=== PATIENT | female | born 1935 | race Caucasian/White ===

== ENCOUNTER → 2016-10-21 | Outpatient (REF) | payer MEDICARE ==
[~2016-10-21] MED LIST: /BRIN1OS OU; /NITR4TASL SL; ADV250INH INH; ALBU17IN INH; ALLO100T PO; ASPI325T5 PO; ASPI81TA21 PO; AZIT500T2 PO; AZOP0.2S OU; BACITAB3 PO; BIMA01SOL OU; BISO5TAB5 PO; BRIN1OPH OU; CEFD1CAP8 PO; CEFT500T PO; COLA100C PO; FOSA70TA PO; FURO40TA2 PO; INSULANT SC; KLOR10TA21 PO; KLOR1TAB77 PO; LASI20TA PO; LOSA50TA20 PO; LUMIGAN OU; MUCI600T34 PO; NITR4TASL SL; OMEG100011 PO; OMEGA PO; OMEGCAP8 PO; OS-CTAB6 PO; OSTEO BIFLEX PO; POTA10CA PO; PRED10PA PO; PRED10TA PO; PRED20TA PO; PRESCAP4 PO; PRESER VISION PO; PRIL20CA PO; PRIL20CA9 PO; PROA1AER INH; ROCA0.25 PO; TYLE325T5 PO; VITA100041 PO; VITA100066 PO; VITA200016 PO; ZITH500T PO; [UNRECOGNIZED DRUG - OTHER] PO
[2016-10-21 15:35] LABS: PERCENT SATURATION 10.8 % (13.2-37.4)
== END ==
LOC: M LAB REF 14:54
PROVIDERS: ATTEND Internal Medicine
DX: R23.1 Pallor (principal); R53.1 Weakness

== ENCOUNTER 2016-12-24 02:16 | Inpatient (IN) | payer MEDICARE ==
[~2016-12-24] VITALS: Ht 167.6 cm; Wt 79.8 kg
[~2016-12-24 02:16] MED LIST changes: -COLA100C PO; +COLA100C3 PO
[2016-12-24] MEDS ORDERED: methylPREDNISolone INJ 125 MG/2 ML VIAL (J2930) IV ONE (02:45)
[2016-12-24 02:54] LABS: ABG HCO3 18.2 MEQ/L (22.0-26.0); ABG PARTIAL PRESSURE CO2 28.8 mmHg (35.0-45.0); ABG PARTIAL PRESSURE O2 69.5 mmHg (75.0-100.0); ABG STANDARD HCO3 20.3 MEQ/L (22.0-26.0); ABG TOTAL CO2 19.1 MEQ/L (23.0-31.0); ABG pH (ARTERIAL) 7.419 UNITS (7.350-7.450)
[2016-12-24 03:09] LABS: BASO % 0.3 % (0.0-1.0); EOS # 0.2 K/mm3 (0.0-0.50); EOS % 1.4 % (0.0-3.0); LARGE UNSTAINED CELL % 0.3 % (0.0-4.0); LYMPH # 1.2 K/mm3 (1.5-4.5); LYMPH % 10.7 % (24.0-44.0); MEAN CORPUSCULAR HEMOGLOBIN 31.3 pg (27.0-33.0); MEAN CORPUSCULAR HGB CONC 30.7 g/dl (32.0-36.5); MONO # 0.2 K/mm3 (0.0-0.8); MONO % 1.7 % (0.0-5.0); NEUTROPHILS # 9.3 K/mm3 (1.8-7.7); NEUTROPHILS % 85.5 % (36.0-66.0); PLATELET COUNT, AUTOMATED 288 k/mm3 (150-450); RED CELL DISTRIBUTION WIDTH 15.1 % (11.5-14.5); WHITE BLOOD COUNT 10.9 K/mm3 (4.0-10.0)
[2016-12-24] MEDS: IPRATROPIUM 0.5MG/ALBUTEROL 2.5MG INH SOL UD 3ML (DUONEB)(J7620) NEB SCH ×8 (03:12→23:25)
[2016-12-24] MEDS ORDERED: ONDANSETRON 4MG/2ML VIAL (J2405) IV ONE (03:15)
[2016-12-24] MEDS ORDERED: CEFEPIME HCL 2 GM in D5W MINI-BAG PLUS 50 ML IV ONE (03:15)
[2016-12-24 03:31] LABS: CALCIUM LEVEL 8.7 MG/DL (8.8-10.2); CREATININE FOR GFR 1.5 MG/DL (0.55-1.02); GLOMERULAR FILTRATION RATE 35.7 (>39); POTASSIUM SERUM 4.2 MEQ/L (3.5-5.1)
[2016-12-24] MEDS ORDERED: ISOVUE-370 76% 100ML VIAL (Q9967) As Ordered ONE (04:09)
--- NOTE | 2016-12-24 05:10 | REPUSA ---
CLINICAL HISTORY: Dyspnea, exclude PE. TECHNIQUE: Multiple incremental axial, coronal and oblique images are obtained from the thoracic inle t to the upper abdomen. Intravenous contrast material was administered as per pulmonary embolism prot ocol. COMMENTS: Minimal right pleural effusion. Passive atelectatic airspace disease in the right lower lobe. Aberrant right subclavian artery. Fluid-filled mildly dilated esophagus. Multifocal ground glass densities in the right upper lobe, right middle lobe and right lower lobe. Prior cholecystectomy. There is excellent opacification of pulmonary arterial system without evidence for pulmonary embolism . Aorta is of normal caliber without evidence for dissection or aneurysm. There is no evidence of pleural or parenchymal mass. There are no pleural effusions. There is no evid ence of hilar or mediastinal lymphadenopathy. The heart and great vessels are within normal limits. Images of the upper abdomen demonstrate no evidence of adrenal mass. The bony structures are free of lytic or blastic lesions. Multilevel degenerative changes are seen in volving the visualized thoracolumbar spine. Scattered calcifications are seen involving the aorta and major branches compatible with atherosclero sis. Moderate sliding hiatal hernia. IMPRESSION: No evidence for pulmonary embolism. Interval appearance of a minimal right pleural effusion. Passive atelectatic airspace disease in the right lower lobe. Fluid-filled mildly dilated esophagus. Ground glass densities in the right upper lobe, right middle lobe and right lower lobe. Findings are suggestive of multifocal pneumonia. Findings were not present on prior exam on 11/24/2007. Thank you for your kind referral of this patient.
[2016-12-24] MEDS ORDERED: ACETAMINOPHEN TAB 650MG DOSE (2X325MG) PO PRN (05:30)
[2016-12-24] MEDS ORDERED: DEXTROSE 50% 50 ML SYRINGE IV PRN (05:30)
[2016-12-24] MEDS ORDERED: GLUCAGON FOR INJ 1 MG VIAL (J1610) SC PRN (05:30)
[2016-12-24] MEDS ORDERED: GLUCOSE 4 GM CHEW TABLET PO PRN (05:30)
[2016-12-24] MEDS ORDERED: IPRATROPIUM 0.5MG/ALBUTEROL 2.5MG INH SOL UD 3ML (DUONEB)(J7620) NEB PRN (05:30)
--- NOTE | 2016-12-24 05:59 | HPEPDOC ---
General Date of Admission 12/24/16 Primary Care Physician: KATHIA WORLEY DO Attending Physician: KALI CONRAD MD Chief Complaint The patient is a 81-year-old female admitted with a reason for visit of sob. Source: Patient Exam Limitations: No limitations History of Present Illness 81-year-old female with past medical history of COPD not on any home oxygen, hypertension, CAD, CHF, diabetes mellitus, DVT of the left lower extremity diagnosed in September of 2016 on Xarelto, GERD, and gout presented to the ER with a chief complaint of progressive cough and shortness of breath. The patient states that her symptoms started 2 weeks ago with a chronic cough which progressed into a cough productive of yellowish sputum over the last 24 hours. The patient states that she was awoken in the middle of the night with worsening shortness or breath and a persistent cough. The patient denies any fevers, but does note subjective chills at home. The patient denies any complaints of chest pain, palpitations, abdominal pain, nausea/vomiting/diarrhea , sick contacts, or any recent travel. In the ER, a CTA of the chest revealed multifocal pneumonia. The patient will be admitted under the service of Dr. Conrad for further evaluation and management of the same. Home Medications Scheduled (Preservision/Lutein) 1 Cap Cap 1 CAP PO DAILY (Reported) (Os-Jamal Ultra 600 mg) 1 Tab Tab 1 TAB PO DAILY (Reported) Allopurinol (Allopurinol) 100 Mg Tab 100 MG PO DAILY (Reported) Aspirin (Aspir-Low) 81 Mg Tab 81 MG PO DAILY (Reported) Bimatoprost (Lumigan) 50 Drop/2.5 Ml Eleanor 1 DROP OU QHS (Reported) Bisoprolol Fumarate (Bisoprolol Fumarate) 5 Mg Tab 2.5 MG PO DAILY (Reported) Brinzolamide (Azopt) 1 % Taya 1 DROP OU BID (Reported) Calcitriol (Rocaltrol) 0.25 Mcg Cap 0.25 MCG PO DAILY (Reported) Cefdinir (Cefdinir) 300 Mg Cap 300 MG PO BID Cholecalciferol (Vitamin D) 1,000 Unit Tab 2,000 UNIT PO DAILY (Reported) Furosemide (Furosemide) 40 Mg Tab 40 MG PO DAILY (Reported) Guaifenesin (Mucinex) 600 Mg Tab 600 MG PO BID Insulin Glargine (Lantus) 1 Units/0.01 Ml Susp 12 UNITS SC QHS (Reported) Lima 3 Polyunsat Fatty Acids (Lima 3 1000 mg) 1 Cap Cap 3 CAP PO BID ( Reported) Omeprazole (Prilosec) 20 Mg Cap 20 MG PO DAILY (Reported) Potassium Chloride (Klor-Con M10) 10 Meq Tabcr 10 MEQ PO DAILY (Reported) Prednisone (Prednisone) 10 Mg Tab 10 MG PO ASDIRECTED Salmeterol/Fluticasone (Advair Diskus 250-50 Mcg/Dose) 14 Puff/Inhaler Aerp 2 PUFF INH BID (Reported) Scheduled PRN Albuterol Sulfate (Proair Hfa) 108 Mcg/Act Aer 2 PUFFS INH Q4H PRN PRN SHORTNESS OF BREATH (Reported) Nitroglycerin (Nitrostat) 0.4 Mg Subl 0.4 MG SL PRN PRN PRN CHEST PAIN (Reported ) Allergies Coded Allergies: Penicillins (Verified Allergy, Unknown, 12/07/12) Pitavastatin (Verified Allergy, Unknown, 05/29/14) Quinolones (Verified Allergy, Unknown, CIPRO AND AVELOX, 12/07/12) Statins (Verified Allergy, Unknown, 05/29/14) Timolol (Verified Allergy, Unknown, 12/07/12) Past Medical History Medical History As noted in HPI. Surgical History 1. Cardiac stent. 2. Subtotal colectomy. 3. Appendectomy. 4. Breast biopsy, right and left. 5. Cataract surgery, bilateral. 6. Cholecystectomy. 7. Hysterectomy. Family History Significant Family History: No pertinent family hx Social History * Smoker: other (smoked 1 pack per day for 50+ years, quit approximately 15 years ago.) Alcohol: occationally Drugs: denies Review of Symptoms Other systems 10 point review of systems negative unless otherwise specified in HPI. Physical Examination General Exam: Positive: Alert, Cooperative, No Acute Distress ENT Exam: Positive: Atraumatic Neck Exam: Negative: JVD Chest Exam: Positive: Diminished, Wheezing, Negative: Rales Heart Exam: Positive: Normal S1, Normal S2, Rate Normal Telemetry: Positive: Sinus Abdomen Exam: Positive: Soft, Negative: Tenderness Extremity Exam: Positive: Other (left lower extremity swelling greater then right lower extremity. This apparently has been the case since the patient was diagnosed with a left lower extremity DVT in September 2016 according to the patient.), Negative: Tenderness Psych Exam: Positive: Oriented x 3 Vital Signs Vital Signs Date Time Temp Pulse Resp B/P Pulse Ox O2 Delivery O2 Flow Rate FiO2 12/24/16 05:30 99.0 60 20 110/53 94 High Flow Mask 12/24/16 03:56 60 12/24/16 03:45 15 Laboratory Data Labs 24H Laboratory Tests 2 12/24/16 02:44: Arterial Blood pH 7.419, Arterial Blood Partial Pressure CO2 28.8L, Arterial Blood Partial Pressure O2 69.5L, Arterial Blood Total CO2 19.1L, Arterial Blood HCO3 18.2L, Arterial Blood Base Excess -5.0L, Arterial Blood Oxygen Saturation 92.9L, Blood Gas Bicarbonate Standard 20.3L 12/24/16 02:49: Anion Gap 9, White Blood Count 10.9H, Red Blood Count 3.85L, Hemoglobin 12.0, Hematocrit 39.2, Mean Corpuscular Volume 102.0H, Mean Corpuscular Hemoglobin 31.3, Mean Corpuscular Hemoglobin Concent 30.7L, Red Cell Distribution Width 15.1H, Platelet Count 288, Neutrophils (%) (Auto) 85.5H, Lymphocytes (%) (Auto) 10.7L, Monocytes (%) (Auto) 1.7, Eosinophils (%) (Auto) 1.4, Basophils (%) (Auto ) 0.3, Neutrophils # (Auto) 9.3H, Lymphocytes # (Auto) 1.2L, Monocytes # (Auto) 0.2, Eosinophils # (Auto) 0.2, Basophils # (Auto) 0.0, Blood Urea Nitrogen 20H, Creatinine 1.50H, Sodium Level 146H, Potassium Level 4.2, Chloride Level 112H, Carbon Dioxide Level 25, Calcium Level 8.7L, Total Creatine Kinase 20L, Creatine Kinase MB 1.0, Creatine Kinase MB Relative Index 5.00H, Glomerular Filtration Rate 35.7L, Large Unclassified Cells # 0.0, Large Unclassified Cells % 0.3, Troponin I 0.08 CBC/BMP Laboratory Tests 12/24/16 02:49 Calcium Level 8.7 L, Total Creatine Kinase 20 L, Red Blood Count 3.85 L, Mean Corpuscular Volume 102.0 H, Mean Corpuscular Hemoglobin 31.3, Mean Corpuscular Hemoglobin Concent 30.7 L, Red Cell Distribution Width 15.1 H, Neutrophils (%) ( Auto) 85.5 H, Lymphocytes (%) (Auto) 10.7 L, Monocytes (%) (Auto) 1.7, Eosinophils (%) (Auto) 1.4, Basophils (%) (Auto) 0.3, Neutrophils # (Auto) 9.3 H , Lymphocytes # (Auto) 1.2 L, Monocytes # (Auto) 0.2, Eosinophils # (Auto) 0.2, Basophils # (Auto) 0.0 Microbiology Microbiology 12/24/16 Blood Culture, Received Pending 12/24/16 Blood Culture, Received Pending 12/24/16 Influenza Virus Type A Antigen - Final, Complete 12/24/16 Influenza Virus Type B Antigen - Final, Complete Plan / VTE VTE Prophylaxis Ordered?: Yes (already on Xarelto) Plan Plan Multifocal pneumonia, in a patient with a history of COPD CTA of the chest noted Blood cultures, sputum culture, MRSA screen, respiratory panel ordered The patient does have a history of multiple drug allergies, however she has been able to tolerate doses of vancomycin and cefepime in the past, and we will continue the same at this time for empiric coverage Continue nebs, inhaler treatment as prescribed We will continue to monitor the patient's respiratory status Hypoxic respiratory failure secondary to above Patient was initially requiring 15 L of oxygen via nonrebreather, however she has been transitioned to high flow oxygen at this time ABG notable for metabolic acidosis with compensatory respiratory alkalosis Continue nebulizer treatment as noted above Status post Solu-Medrol in the ER We will continue to down titrate the patient's supplemental oxygen requirement as tolerated Chronic kidney disease Serum creatinine appears to be at baseline Diabetes mellitus Continue insulin regimen Hypertension, stable Continue current regimen History of left lower extremity DVT diagnosed in September 2016 On Xarelto History of CHF, CAD Appears euvolemic at this time, and is without any complaints of chest pain Continue Lasix, aspirin, and bisoprolol Not on a statin secondary to allergy GERD Continue PPI Gout Continue allopurinol DVT prophylaxis-already on Xarelto The patient will be admitted under the service of Dr. Conrad, who will begin to follow the patient on 12/24/16 at 7 AM. SAUMYA ABURTO MD Dec 24, 2016 05:58
[2016-12-24] MEDS ORDERED: XARE20TA PO (06:09)
[2016-12-24] MEDS ORDERED: FERR32TA PO (06:09)
[2016-12-24] MEDS ORDERED: POTA10CA PO (06:09)
[2016-12-24] MEDS ORDERED: FURO20TA2 PO (06:09)
[2016-12-24] MEDS ORDERED: ASPI81TA7 PO (06:09)
[2016-12-24] MEDS ORDERED: PRESCAP PO (06:09)
[2016-12-24] MEDS ORDERED: NITROGLYCERIN 0.4 MG SUBL TABLET SL PRN (06:15)
--- NOTE | 2016-12-24 06:23 | PHACANCOPD ---
PHARMACY VANCOMYCIN DOSING Pt Demographics Demographics Patient Age:81 , Weight: , Gender: female Adjusted Body Weight Date: 12/24/16, Adjusted Body Weight: [67.3] Kg Vancomycin Vancomycin indication: PNEUMONIA Vancomycin Target Ranges: 15-20 mcg/ml Vancomycin Load Y/N: No Load Dose Date Time Vancomycin Load Dose: Date: Time: Vancomycin Dose Date: 12/24/16. Current Vancomycin Dose: [750MG Q12X2,THEN 1 GM Q24] Intermittent Dosing?: No Labs Labs Laboratory Tests 12/24/16 02:49 Calcium Level 8.7 L, Total Creatine Kinase 20 L, Red Blood Count 3.85 L, Mean Corpuscular Volume 102.0 H, Mean Corpuscular Hemoglobin 31.3, Mean Corpuscular Hemoglobin Concent 30.7 L, Red Cell Distribution Width 15.1 H, Neutrophils (%) ( Auto) 85.5 H, Lymphocytes (%) (Auto) 10.7 L, Monocytes (%) (Auto) 1.7, Eosinophils (%) (Auto) 1.4, Basophils (%) (Auto) 0.3, Neutrophils # (Auto) 9.3 H , Lymphocytes # (Auto) 1.2 L, Monocytes # (Auto) 0.2, Eosinophils # (Auto) 0.2, Basophils # (Auto) 0.0 Micro Microbiology 12/24/16 Blood Culture, Received Pending 12/24/16 Blood Culture, Received Pending 12/24/16 Influenza Virus Type A Antigen - Final, Complete 12/24/16 Influenza Virus Type B Antigen - Final, Complete Creatinine Clearance Date:12/24/16. Creatinine Clearance: [32.3]CALCULATED. Pending Labs VANCO TROUGH DUE 12/26@1700 Assessment and Plan Maintaining Current Dose?: Yes Reason for dose change: No Dose Change Pharmacist Note Pharmacist Note Date: 12/24/16. Pharmacist note:[id number]: SCR=1.5,CRCL=32.3CALCULATED,TREATING PNEUMONIA W CEFEPIME 1 GM Q12H AND VANCOMYCIN PER PHARMACY CONSULT.wILL BEGIN WITH VANCOMYCIN 750MG IV q12H X 2 DOSES,THEN CHANGE TO 1 GRAM IV Q24H BEGINNING 12/25 WITH TROUGH ORDERED FOR 12/26@1700:WILL CONTINUE TO FOLLOW LEVELS AND LABS [facility] Dec 24, 2016 06:23
[2016-12-24] MEDS: HumaLOG INSULIN (NovoLOG) PER UNIT SC SCH ×4 (07:18→21:44)
[2016-12-24] MEDS: VANCOMYCIN HCL 750 MG, VIAL MATE ADAPTER 1 EACH in D5W 250 ML IV SCH ×2 (07:18→17:35)
--- NOTE | 2016-12-24 08:23 | REP ---
Portable chest, single AP view, the patient semi upright: Comparison is 04/08/2016. There is increased radiodensity in the right upper lobe and right lower lobe as an interval change, compatible with infiltrates. Left lung is clear except for minor zone of discoid atelectasis inferiorly. Cardiac size is normal. No pleural effusions. Impression: New right upper lobe and right lower lobe infiltrates. Minor discoid atelectasis on the left. Signed by Fady Larsen MD 12/24/2016 08:14 A
[2016-12-24] MEDS: FUROSEMIDE 20 MG TAB PO SCH (09:00)
[2016-12-24] MEDS: ASPIRIN 81 MG ENTERIC TAB PO SCH (09:00)
[2016-12-24] MEDS: RIVAROXABAN 20 MG TAB (XARELTO) PO SCH (09:01)
[2016-12-24] MEDS: POTASSIUM CHLORIDE 10 MEQ SR TABLET PO SCH ×2 (09:01→21:43)
[2016-12-24] MEDS: OMEPRAZOLE 20 MG CAP PO SCH (09:01)
[2016-12-24] MEDS: BISOPROLOL FUMARATE 5 MG TAB PO SCH (09:02)
[2016-12-24] MEDS: ADVAIR DISKUS 250/50 INH PWD INH SCH ×3 (09:26→23:26)
[2016-12-24] MEDS: CALCITRIOL 0.25 MCG CAP (S0169) PO SCH (09:31)
[2016-12-24] MEDS: FERROUS GLUCONATE 324 MG TAB PO SCH (09:31)
[2016-12-24] MEDS: ALLOPURINOL 100 MG TAB PO SCH (09:32)
[2016-12-24] MEDS: BRINZOLAMIDE 1 % OPHTH SUSP (AZOPT) 10ML OU SCH ×2 (09:32→22:52)
[2016-12-24] MEDS: VITAMIN D 1,000 INTERNATIONAL UNITS TABLET PO SCH (09:32)
[2016-12-24 10:30] VITALS: BP 115/55
[2016-12-24 14:00] VITALS: BP 121/62
[2016-12-24] MEDS: CEFEPIME HCL 1 GM in D5W MINI-BAG PLUS 50 ML IV SCH (15:49)
[2016-12-24] MEDS ORDERED: CEFEPIME HCL 1 GM in D5W MINI-BAG PLUS 50 ML IV SCH (16:00)
[2016-12-24] MEDS: LEVEMIR (INSULIN DETEMIR) 1 UNITS/0.01ML SC SCH (21:44)
[2016-12-24 22:00] VITALS: BP 107/56
[2016-12-25] MEDS: IPRATROPIUM 0.5MG/ALBUTEROL 2.5MG INH SOL UD 3ML (DUONEB)(J7620) NEB SCH ×6 (02:27→23:23)
[2016-12-25] MEDS: CEFEPIME HCL 1 GM in D5W MINI-BAG PLUS 50 ML IV SCH ×2 (04:29→16:52)
[2016-12-25 06:00] VITALS: BP 98/51
[2016-12-25 08:56] LABS: ALBUMIN 1.9 GM/DL (3.2-5.2); ALBUMIN/GLOBULIN RATIO 0.66 (1.00-1.93); BILIRUBIN,TOTAL 0.2 MG/DL (0.2-1.0); CALCIUM LEVEL 7.8 MG/DL (8.8-10.2); CREATININE FOR GFR 2.04 MG/DL (0.55-1.02); TOTAL PROTEIN 4.8 GM/DL (6.4-8.2)
[2016-12-25] MEDS: BISOPROLOL FUMARATE 5 MG TAB PO SCH (09:00)
[2016-12-25 09:01] LABS: MEAN CORPUSCULAR HEMOGLOBIN 32.1 pg (27.0-33.0); MEAN CORPUSCULAR HGB CONC 31.4 g/dl (32.0-36.5); MEAN CORPUSCULAR VOLUME 102.1 fl (80.0-96.0); RED CELL DISTRIBUTION WIDTH 14.9 % (11.5-14.5); WHITE BLOOD COUNT 18.7 K/mm3 (4.0-10.0)
[2016-12-25] MEDS: HumaLOG INSULIN (NovoLOG) PER UNIT SC SCH ×4 (09:01→21:00)
[2016-12-25] MEDS: VITAMIN D 1,000 INTERNATIONAL UNITS TABLET PO SCH (09:02)
[2016-12-25] MEDS: RIVAROXABAN 20 MG TAB (XARELTO) PO SCH (09:02)
[2016-12-25] MEDS: FUROSEMIDE 20 MG TAB PO SCH (09:02)
[2016-12-25] MEDS: OMEPRAZOLE 20 MG CAP PO SCH (09:02)
[2016-12-25] MEDS: POTASSIUM CHLORIDE 10 MEQ SR TABLET PO SCH (09:03)
[2016-12-25] MEDS: ASPIRIN 81 MG ENTERIC TAB PO SCH (09:03)
[2016-12-25] MEDS: CALCITRIOL 0.25 MCG CAP (S0169) PO SCH (09:03)
[2016-12-25] MEDS: ALLOPURINOL 100 MG TAB PO SCH (09:03)
[2016-12-25] MEDS: FERROUS GLUCONATE 324 MG TAB PO SCH (09:03)
[2016-12-25] MEDS: BRINZOLAMIDE 1 % OPHTH SUSP (AZOPT) 10ML OU SCH ×2 (09:04→21:16)
[2016-12-25 10:10] LABS: POTASSIUM SERUM 5.8 MEQ/L (3.5-5.1)
[2016-12-25] MEDS: ADVAIR DISKUS 250/50 INH PWD INH SCH ×2 (10:17→19:49)
[2016-12-25] MEDS ORDERED: NS 1,000 ML IV SCH (11:00)
[2016-12-25] MEDS ORDERED: SOD POLYSTYRENE SULFONATE SUSP 15 GM/60 ML UD PO ONE (11:00)
[2016-12-25] MEDS ORDERED: CALCIUM GLUCONATE 1,000 MG in D5W MINI-BAG PLUS 100 ML IV ONE (12:00)
--- NOTE | 2016-12-25 12:12 | IPN ---
DATE: 12/25/2016 The patient is seen and examined at the bedside. Chart has been reviewed. This morning, the patient's breathing is slightly improved. Still with nonproductive cough. No fever or chills overnight. Input and output overnight, input 420 and no output documented. VITAL SIGNS: Temperature 98.3, pulse 75, respiratory rate 18, blood pressure 98/51, 94% on 3 liters nasal cannula. GENERAL: The patient is awake, alert and oriented to person, place and time, answering questions appropriately. She has mild respiratory distress. Use of accessory muscles. No cyanosis. No jugular venous distention (JVD). LUNGS: Diminished breath sounds with bilateral rhonchi. HEART: S1, S2. Sinus rhythm. ABDOMEN: Soft, nontender, nondistended. EXTREMITIES: No cyanosis, clubbing or pitting edema. White count 18.7, hemoglobin 9, hematocrit 28, platelet count 185. Sodium 135, potassium 5.8, chloride 105, bicarbonate 20, BUN 39, creatinine 2.04, glucose of 229. ASSESSMENT AND PLAN: This is a 81-year-old female with a history of chronic obstructive pulmonary disease (COPD), not on home oxygen, hypertension, coronary artery disease, congestive heart failure (CHF), diabetes, deep vein thrombosis (DVT) in left lower extremity diagnosed in September 2016 on chronic Xarelto, reflux, and gout, presented with productive cough and shortness of breath with a two week history of yellow productive sputum. Denies any fever. CTA showed multifocal pneumonia. The patient was started on vancomycin and Zosyn. Continued on her home medications of Lasix and potassium supplement, was found to have hyperkalemia with a potassium of 5.8 this morning, creatinine is 2.04. The patient clinically feels improved with her shortness of breath, on broad spectrum antibiotic and nebulizer treatments. CURRENT ISSUES: 1. Acute kidney injury secondary to Lasix, dehydration, decreased oral intake with hyperkalemia secondary to potassium supplementation. The patient's potassium and Lasix have been discontinued. She will be given Kayexalate. Repeat metabolic panel serially until resolution of hyperkalemia and improvement in the patient's renal failure. We have started her on IV fluids to 60 mL an hour due to a history of congestive heart failure (CHF) times 1 liter to improve her acute kidney injury. 2. Multifocal pneumonia. Currently on vancomycin and Zosyn. Awaiting sputum culture to tailor antibiotics. 3. History of coronary artery disease and cardiac stents. Currently with no acute ischemic symptoms. History of CHF, appears to be compensated. 4. History of COPD, not on home oxygen with coarse rhonchi at the bedside. 5. Type 2 diabetes, stable. 6. DVT of left lower extremity, on chronic Xarelto. 7. Hypertension. Currently with low blood pressure at 98 systolic. Hold bisoprolol for a systolic pressure of less than 120.
[2016-12-25] MEDS: ONDANSETRON 4MG/2ML VIAL (J2405) IV PRN ×2 (13:49→21:15)
[2016-12-25 14:00] VITALS: BP 106/58
[2016-12-25] MEDS: VANCOMYCIN HCL 1,000 MG, VIAL MATE ADAPTER 1 EACH in D5W 250 ML IV SCH (17:41)
--- NOTE | 2016-12-25 20:13 | ECGEPIP ---
Stationary ECG Study [facility] - ED Test Date: 2016-12-24 Pat Name: SILVIA BAER Department: Room: [place] [address] Gender: F Utilization Specialist: sam : [id number] Requested By: JESSIKA Gordon Order Number: [id number] Reading MD: Abbi Love Measurements Intervals [place] Rate: 59 P: OR: 0 QRS: -56 QRSD: 112 T: 57 QT: 417 QTc: 415 Interpretive Statements SINUS BRADYCARDIA WITH 2ND DEGREE AV BLOCK, MOBITZ TYPE II WITH OCCASIONAL VENTRICULAR PREMATURE COMPLEXES INCOMPLETE RIGHT BUNDLE BRANCH BLOCK LEFT ANTERIOR FASCICULAR BLOCK LEFT VENTRICULAR HYPERTROPHY AND ST-T CHANGE PROBABLE ANTEROLATERAL MYOCARDIAL INFARCTION, OF INDETERMINATE AGE Electronically Signed On 12-25-2016 20:12:32 EDT by Abbi Love
[2016-12-25] MEDS: LEVEMIR (INSULIN DETEMIR) 1 UNITS/0.01ML SC SCH (21:15)
[2016-12-25 22:00] VITALS: BP 107/52
[2016-12-25 23:29] LABS: CALCIUM LEVEL 8.4 MG/DL (8.8-10.2); CREATININE FOR GFR 1.96 MG/DL (0.55-1.02); GLOMERULAR FILTRATION RATE 26.2 (>39); POTASSIUM SERUM 3.9 MEQ/L (3.5-5.1)
[2016-12-26] MEDS: CEFEPIME HCL 1 GM in D5W MINI-BAG PLUS 50 ML IV SCH ×2 (03:04→16:00)
[2016-12-26] MEDS: IPRATROPIUM 0.5MG/ALBUTEROL 2.5MG INH SOL UD 3ML (DUONEB)(J7620) NEB SCH ×6 (03:36→23:21)
[2016-12-26 06:00] VITALS: BP 102/59
[2016-12-26] MEDS: ADVAIR DISKUS 250/50 INH PWD INH SCH ×2 (07:10→20:11)
[2016-12-26] MEDS: BISOPROLOL FUMARATE 5 MG TAB PO SCH (07:56)
[2016-12-26] MEDS ORDERED: PREVNAR 13 VACCINE SYRINGE (CPT CODE:90670) IM ONE (09:00)
[2016-12-26] MEDS: BRINZOLAMIDE 1 % OPHTH SUSP (AZOPT) 10ML OU SCH ×2 (09:00→20:03)
[2016-12-26] MEDS: CALCITRIOL 0.25 MCG CAP (S0169) PO SCH (09:00)
[2016-12-26] MEDS: ALLOPURINOL 100 MG TAB PO SCH (09:22)
[2016-12-26] MEDS: OMEPRAZOLE 20 MG CAP PO SCH (09:22)
[2016-12-26] MEDS: VITAMIN D 1,000 INTERNATIONAL UNITS TABLET PO SCH (09:22)
[2016-12-26] MEDS: RIVAROXABAN 20 MG TAB (XARELTO) PO SCH (09:22)
[2016-12-26] MEDS: FERROUS GLUCONATE 324 MG TAB PO SCH (09:22)
[2016-12-26] MEDS: ASPIRIN 81 MG ENTERIC TAB PO SCH (09:22)
[2016-12-26] MEDS: HumaLOG INSULIN (NovoLOG) PER UNIT SC SCH ×4 (09:26→21:00)
--- NOTE | 2016-12-26 10:28 | IPN ---
DATE: 12/26/2016 The patient is seen and examined at the bedside. Chart has been reviewed. This morning, she has no new complaints. Breathing is a little easier, still with occasional nonproductive cough. No complaints of chest pain, pressure, tightness, lightheadedness, dizziness. No other issues per nursing overnight. She has requested her Lumigan eye drops be given at nighttime. No fever or chills. VITAL SIGNS: Temperature 99.3, pulse 90, respiratory rate 20, blood pressure 102/50, 95% on 2 liters nasal cannula. GENERAL: Awake, alert and oriented times three, answering questions appropriately. LUNGS: Diminished breath sounds with bilateral wheezing and crackles at the bases on the right greater than the left. HEART: S1, S2. Sinus rhythm. ABDOMEN: Soft, nontender, nondistended. EXTREMITIES: No pitting edema. CBC and metabolic panel have been reviewed. Microbiology has been reviewed. Influenza A and B are negative. Methicillin resistant Staphylococcus aureus (MRSA) screen is negative. Respiratory panel was negative. CT of the chest shows no evidence of pulmonary embolism, minimal right pleural effusion, atelectasis of the right lower lobe, dilated esophagus, ground glass opacity right upper, middle and lower lobe. Multifocal pneumonia. ASSESSMENT AND PLAN: This is a 81-year-old female with a history of chronic obstructive pulmonary disease (COPD), not on home oxygen, hypertension, coronary artery disease, congestive heart failure (CHF), deep vein thrombosis (DVT) in left lower extremity diagnosed in September 2016 on chronic Xarelto, diabetes, reflux, and gout, presented to the emergency room with productive cough and shortness of breath with a two week history of yellow productive sputum. Denies any fever. CT of the chest showed multifocal pneumonia. subclavian artery. Atelectasis in the right lower lobe. Minimal right pleural effusion. Moderate sliding hiatal hernia. Fluid filled dilated esophagus. Broad spectrum antibiotics with vancomycin and cefepime were given. She is continued on her home medications. Lasix has been withheld due to acute kidney injury and chronic renal failure. CURRENT ISSUES: 1. Multifocal pneumonia, currently on vancomycin and cefepime, awaiting final sputum culture. Continue with nebulizer treatments, supplemental oxygen. 2. Acute kidney injury secondary to Lasix, dehydration, decreased oral intake with hyperkalemia secondary to potassium supplementation. The patient's electrolytes are improved. The patient had received Kayexalate and 1 liter of intravenous fluids at 60 mL an hour. 3. History of coronary artery disease and stents, congestive heart failure (CHF). Currently compensated. No acute ischemic symptoms. 4. History of COPD, not on home oxygen with coarse rhonchi at the bedside. Continue with nebulizer treatments. 5. Type 2 diabetes, stable. 6. DVT of left lower extremity, on chronic Xarelto. 7. Hypertension. Hold bisoprolol for systolic blood pressure less than 120.
[2016-12-26] MEDS: guaiFENesin ER 600 MG TAB PO SCH ×2 (12:56→20:02)
[2016-12-26 14:00] VITALS: BP 103/69
[2016-12-26] MEDS: VANCOMYCIN HCL 1,000 MG, VIAL MATE ADAPTER 1 EACH in D5W 250 ML IV SCH (18:00)
[2016-12-26 18:27] LABS: CALCIUM LEVEL 7.9 MG/DL (8.8-10.2); CREATININE FOR GFR 1.77 MG/DL (0.55-1.02); GLOMERULAR FILTRATION RATE 29.5 (>39); POTASSIUM SERUM 3.9 MEQ/L (3.5-5.1)
[2016-12-26] MEDS: LEVEMIR (INSULIN DETEMIR) 1 UNITS/0.01ML SC SCH (20:03)
[2016-12-26] MEDS ORDERED: LATANOPROST 0.005% OPHTH SOLN 2.5 ML OU SCH ×3 (21:00)
[2016-12-26] MEDS ORDERED: ENTER DRUG NAME HERE (PATIENT'S OWN MED) OU SCH (21:00)
[2016-12-26] MEDS: LATANOPROST 0.005% OPHTH SOLN 2.5 ML OU SCH (21:16)
[2016-12-26 22:00] VITALS: BP 109/55
[2016-12-27 03:04] VITALS: O2SAT 95
[2016-12-27] MEDS: CEFEPIME HCL 1 GM in D5W MINI-BAG PLUS 50 ML IV SCH ×2 (03:07→18:44)
[2016-12-27] MEDS: IPRATROPIUM 0.5MG/ALBUTEROL 2.5MG INH SOL UD 3ML (DUONEB)(J7620) NEB SCH ×6 (03:10→23:20)
[2016-12-27 06:00] VITALS: BP 117/59
[2016-12-27 07:07] LABS: BASO % 0.1 % (0.0-1.0); EOS # 0.1 K/mm3 (0.0-0.50); EOS % 1.1 % (0.0-3.0); LARGE UNSTAINED CELL # 0.1 K/mm3 (0.0-0.4); LARGE UNSTAINED CELL % 1.2 % (0.0-4.0); LYMPH # 1.5 K/mm3 (1.5-4.5); LYMPH % 18.2 % (24.0-44.0); MEAN CORPUSCULAR HEMOGLOBIN 31.5 pg (27.0-33.0); MEAN CORPUSCULAR HGB CONC 31.5 g/dl (32.0-36.5); MONO # 0.3 K/mm3 (0.0-0.8); NEUTROPHILS # 5.9 K/mm3 (1.8-7.7); NEUTROPHILS % 75.5 % (36.0-66.0); PLATELET COUNT, AUTOMATED 167 k/mm3 (150-450); RED CELL DISTRIBUTION WIDTH 14.7 % (11.5-14.5); WHITE BLOOD COUNT 7.8 K/mm3 (4.0-10.0)
[2016-12-27] MEDS: ADVAIR DISKUS 250/50 INH PWD INH SCH ×2 (07:24→19:18)
[2016-12-27] MEDS: HumaLOG INSULIN (NovoLOG) PER UNIT SC SCH ×4 (07:30→21:00)
[2016-12-27 07:32] LABS: ALBUMIN 1.7 GM/DL (3.2-5.2); ALBUMIN/GLOBULIN RATIO 0.61 (1.00-1.93); BILIRUBIN,TOTAL 0.4 MG/DL (0.2-1.0); CALCIUM LEVEL 7.5 MG/DL (8.8-10.2); CREATININE FOR GFR 1.49 MG/DL (0.55-1.02); GLOMERULAR FILTRATION RATE 35.9 (>39); MAGNESIUM LEVEL 1.2 MG/DL (1.8-2.4); POTASSIUM SERUM 3.8 MEQ/L (3.5-5.1); TOTAL PROTEIN 4.5 GM/DL (6.4-8.2)
[2016-12-27 07:48] LABS: ERYTHROCYTE SEDIMENTATION RATE 106 mm/hr (0-30)
[2016-12-27] MEDS ORDERED: PNEUMOCOCCAL VACCINE 0.5ML SYRINGE(90732) PNEUMOVAX 23 IM ONE (09:00)
[2016-12-27] MEDS: BRINZOLAMIDE 1 % OPHTH SUSP (AZOPT) 10ML OU SCH ×2 (09:00→21:51)
[2016-12-27 09:11] LABS: PERCENT SATURATION 6.3 % (13.2-37.4)
[2016-12-27 09:16] LABS: RETICULOCYTE ABSOLUTE ADVIA212 51 x10(9)/L (17-77)
[2016-12-27 09:19] LABS: REASON FOR REVIEW COMPREHENSIVE REVIEW
[2016-12-27] MEDS: RIVAROXABAN 20 MG TAB (XARELTO) PO SCH (09:44)
[2016-12-27] MEDS: BISOPROLOL FUMARATE 5 MG TAB PO SCH (09:44)
--- NOTE | 2016-12-27 09:44 | IPN ---
DATE: 12/27/2016 The patient is seen and examined at the bedside. Chart has been reviewed. This morning patient has complaints. No fevers or chills. Still with nonproductive cough. Shortness of breath is at baseline. Ambulating well. No new complaints. No nausea, vomiting, dysuria, urgency, or frequency. Tolerating her diet well. VITAL SIGNS: Temperature 98.9, pulse 81, respiratory rate 20, blood pressure 117/50, 98% on 2 liters nasal cannula. GENERAL: Awake, alert and oriented times three, answering questions appropriately. No respiratory distress. Speaks in full sentences. No use of respiratory accessory muscles. LUNGS: Diminished with faint wheezing and crackles at the based, right greater than left. HEART: S1, S2. Sinus rhythm. ABDOMEN: Soft, nontender, nondistended. Positive bowel sounds in all four quadrants. EXTREMITIES: No pitting edema. LABORATORY DATA: Microbiology and imaging studies have been reviewed. ASSESSMENT AND PLAN: This is a 81-year-old female with a history of chronic obstructive pulmonary disease (COPD), not on home oxygen, hypertension, coronary artery disease (CAD), congestive heart failure (CHF), deep vein thrombosis (DVT) in left lower extremity diagnosed in September 2016 on chronic Xarelto, diabetes, reflux, and gout, presented to the emergency room with productive cough and shortness of breath with a two week history of yellow productive sputum. Denies any fever. CT of the chest showed multifocal pneumonia and atelectasis right lower lobe and middle lobe right pleural effusion, moderate sliding hiatal hernia, a fluid filled dilated esophagus. Patient has been placed on broad spectrum antibiotics with vancomycin and cefepime. Sputum culture is not finalized. She is continued on all her home medications. Lasix was initially held due to acute on chronic renal failure with improved creatinine to 1.92. CURRENT ISSUES: 1. Multifocal pneumonia, currently on vancomycin and cefepime, awaiting final sputum culture to change antibiotics. Continue with nebulizer treatments, supplemental oxygen. 2. Acute hypoxic respiratory failure secondary to multifocal pneumonia. Continue to supplement, treat underlying condition, nebulizer treatments. 3. Acute kidney injury secondary to Lasix, dehydration, decreased oral intake with hyperkalemia secondary to potassium supplementation, resolved. The patient's creatinine and electrolytes are significantly improved and back to baseline. Patient did receive 1 liter of IV fluids 60 mL an hour and one dose of Kayexalate. 4. Anemia. Most likely hemodilution. Patient had been in positive balance due to acute kidney injury and received 2 liters on 12/26/2016. We will add on iron studies, check stool for blood, and check hemoglobin and hematocrit if persistently less than 8 hemoglobin. We will obtain a blood consent form and transfuse tomorrow if symptomatic. 5. History of chronic obstructive pulmonary artery disease (COPD), not on home oxygen with coarse rhonchi at the bedside and faint wheezing. Continue nebulizer treatment. No acute exacerbation. 6. History of coronary artery disease (CAD) and stents, congestive heart failure (CHF). Currently compensated with no acute ischemic symptoms at this time. Patient is being treated for pneumonia, recently received IV fluids for acute on chronic renal failure. 7. Deep venous thrombosis (DVT) left lower extremity, on chronic Xarelto. 8. Type 2 diabetes. Sliding scan on insulin. Appears to be stable. 9. Hypertension. Hold bisoprolol for systolic blood pressure less than 120.
[2016-12-27] MEDS: OMEPRAZOLE 20 MG CAP PO SCH (09:45)
[2016-12-27] MEDS: FERROUS GLUCONATE 324 MG TAB PO SCH (09:45)
[2016-12-27] MEDS: ALLOPURINOL 100 MG TAB PO SCH (09:45)
[2016-12-27] MEDS: guaiFENesin ER 600 MG TAB PO SCH ×2 (09:45→21:51)
[2016-12-27] MEDS: VITAMIN D 1,000 INTERNATIONAL UNITS TABLET PO SCH (09:45)
[2016-12-27] MEDS: ASPIRIN 81 MG ENTERIC TAB PO SCH (09:45)
[2016-12-27] MEDS: CALCITRIOL 0.25 MCG CAP (S0169) PO SCH (09:46)
[2016-12-27 14:00] VITALS: BP 129/62
[2016-12-27 19:16] VITALS: O2SAT 93
[2016-12-27] MEDS: VANCOMYCIN HCL 1,000 MG, VIAL MATE ADAPTER 1 EACH in D5W 250 ML IV SCH (20:26)
[2016-12-27] MEDS: LEVEMIR (INSULIN DETEMIR) 1 UNITS/0.01ML SC SCH (21:51)
[2016-12-27] MEDS: LATANOPROST 0.005% OPHTH SOLN 2.5 ML OU SCH (21:51)
[2016-12-27 22:00] VITALS: BP 139/66
[2016-12-28] MEDS: IPRATROPIUM 0.5MG/ALBUTEROL 2.5MG INH SOL UD 3ML (DUONEB)(J7620) NEB SCH ×6 (03:22→23:02)
[2016-12-28 03:23] VITALS: O2SAT 94
[2016-12-28] MEDS: CEFEPIME HCL 1 GM in D5W MINI-BAG PLUS 50 ML IV SCH (04:49)
[2016-12-28 06:00] VITALS: BP 118/58
[2016-12-28 07:05] LABS: BASO % 0.2 % (0.0-1.0); EOS # 0.1 K/mm3 (0.0-0.50); EOS % 1.5 % (0.0-3.0); LARGE UNSTAINED CELL # 0.1 K/mm3 (0.0-0.4); LARGE UNSTAINED CELL % 1.9 % (0.0-4.0); LYMPH # 1.4 K/mm3 (1.5-4.5); LYMPH % 18.7 % (24.0-44.0); MEAN CORPUSCULAR HEMOGLOBIN 34.6 pg (27.0-33.0); MEAN CORPUSCULAR HGB CONC 34.2 g/dl (32.0-36.5); MONO # 0.5 K/mm3 (0.0-0.8); NEUTROPHILS # 5.4 K/mm3 (1.8-7.7); NEUTROPHILS % 71.7 % (36.0-66.0); PLATELET COUNT, AUTOMATED 166 k/mm3 (150-450); RED CELL DISTRIBUTION WIDTH 14.8 % (11.5-14.5); WHITE BLOOD COUNT 7.5 K/mm3 (4.0-10.0)
[2016-12-28 07:07] LABS: CALCIUM LEVEL 8.1 MG/DL (8.8-10.2); CREATININE FOR GFR 1.11 MG/DL (0.55-1.02); GLOMERULAR FILTRATION RATE 50.5 (>39); POTASSIUM SERUM 3.5 MEQ/L (3.5-5.1)
[2016-12-28] MEDS: HumaLOG INSULIN (NovoLOG) PER UNIT SC SCH ×4 (07:30→21:00)
[2016-12-28] MEDS: ADVAIR DISKUS 250/50 INH PWD INH SCH ×2 (07:47→23:02)
[2016-12-28] MEDS ORDERED: PIPERACILLIN/TAZOBACTAM SOD 3.375 GM in D5W MINI-BAG PLUS 50 ML IV SCH (08:00)
[2016-12-28] MEDS: ASPIRIN 81 MG ENTERIC TAB PO SCH (08:27)
[2016-12-28] MEDS: CALCITRIOL 0.25 MCG CAP (S0169) PO SCH (08:27)
[2016-12-28] MEDS: OMEPRAZOLE 20 MG CAP PO SCH (08:27)
[2016-12-28] MEDS: guaiFENesin ER 600 MG TAB PO SCH ×2 (08:27→21:21)
[2016-12-28] MEDS: VITAMIN D 1,000 INTERNATIONAL UNITS TABLET PO SCH (08:28)
[2016-12-28] MEDS: RIVAROXABAN 20 MG TAB (XARELTO) PO SCH (08:28)
[2016-12-28] MEDS: BRINZOLAMIDE 1 % OPHTH SUSP (AZOPT) 10ML OU SCH ×2 (08:28→21:23)
[2016-12-28] MEDS: ALLOPURINOL 100 MG TAB PO SCH (08:28)
[2016-12-28] MEDS: BISOPROLOL FUMARATE 5 MG TAB PO SCH (08:32)
[2016-12-28] MEDS: FERROUS GLUCONATE 324 MG TAB PO SCH (08:52)
[2016-12-28] MEDS ORDERED: LevoFLOXacin IV 750 MG in APPROPRIATE DILUENT 1 EA IV SCH (09:00)
--- NOTE | 2016-12-28 09:20 | REP ---
Portable chest, single AP view, the patient upright: Comparisons are the portable chest of 12/24/[address] of 12/24 2016. The right lung infiltrates have decreased but have not resolved. There is minor discoid atelectasis inferiorly on the left. Left lung is otherwise clear. Cardiac size normal. No pleural effusion. The rony, mediastinum, and bony thorax are unremarkable. Impression: The right lung infiltrates have decreased but have not resolved. Signed by Fady Larsen MD 12/28/2016 09:12 A
[2016-12-28] MEDS ORDERED: D5W IV SCH (12:00)
[2016-12-28] MEDS ORDERED: TOBRAMYCIN SULF IV SCH (12:00)
[2016-12-28] MEDS: MEROPENEM INJ 1 GM in D5W MINI-BAG PLUS 100 ML IV SCH ×2 (13:18→21:22)
[2016-12-28 14:00] VITALS: BP 124/60
[2016-12-28] MEDS: LEVEMIR (INSULIN DETEMIR) 1 UNITS/0.01ML SC SCH (21:00)
[2016-12-28] MEDS: LATANOPROST 0.005% OPHTH SOLN 2.5 ML OU SCH (21:23)
[2016-12-28 22:00] VITALS: BP 131/59
[2016-12-28 23:03] VITALS: O2SAT 94
[2016-12-29] MEDS: IPRATROPIUM 0.5MG/ALBUTEROL 2.5MG INH SOL UD 3ML (DUONEB)(J7620) NEB SCH ×6 (03:24→23:19)
[2016-12-29] MEDS: MEROPENEM INJ 1 GM in D5W MINI-BAG PLUS 100 ML IV SCH ×3 (05:18→20:09)
[2016-12-29 06:00] VITALS: BP 134/62
[2016-12-29] MEDS: ADVAIR DISKUS 250/50 INH PWD INH SCH ×2 (07:21→19:41)
[2016-12-29 07:24] LABS: BASO % 0.2 % (0.0-1.0); EOS # 0.2 K/mm3 (0.0-0.50); EOS % 2.5 % (0.0-3.0); LARGE UNSTAINED CELL # 0.1 K/mm3 (0.0-0.4); LARGE UNSTAINED CELL % 1.3 % (0.0-4.0); LYMPH # 1.4 K/mm3 (1.5-4.5); LYMPH % 17.2 % (24.0-44.0); MEAN CORPUSCULAR HEMOGLOBIN 31.9 pg (27.0-33.0); MEAN CORPUSCULAR VOLUME 99.5 fl (80.0-96.0); MONO # 0.5 K/mm3 (0.0-0.8); MONO % 6.2 % (0.0-5.0); NEUTROPHILS # 5.4 K/mm3 (1.8-7.7); NEUTROPHILS % 72.6 % (36.0-66.0); PLATELET COUNT, AUTOMATED 197 k/mm3 (150-450); RED CELL DISTRIBUTION WIDTH 14.8 % (11.5-14.5); WHITE BLOOD COUNT 7.4 K/mm3 (4.0-10.0)
[2016-12-29 07:41] LABS: CREATININE FOR GFR 1.14 MG/DL (0.55-1.02); GLOMERULAR FILTRATION RATE 48.9 (>39); POTASSIUM SERUM 3.6 MEQ/L (3.5-5.1)
[2016-12-29] MEDS: BRINZOLAMIDE 1 % OPHTH SUSP (AZOPT) 10ML OU SCH ×2 (08:33→20:09)
[2016-12-29] MEDS: HumaLOG INSULIN (NovoLOG) PER UNIT SC SCH ×4 (08:35→21:00)
[2016-12-29] MEDS: FERROUS GLUCONATE 324 MG TAB PO SCH (08:36)
[2016-12-29] MEDS: OMEPRAZOLE 20 MG CAP PO SCH (08:37)
[2016-12-29] MEDS: CALCITRIOL 0.25 MCG CAP (S0169) PO SCH (08:37)
[2016-12-29] MEDS: guaiFENesin ER 600 MG TAB PO SCH ×2 (08:37→20:08)
[2016-12-29] MEDS: ALLOPURINOL 100 MG TAB PO SCH (08:37)
[2016-12-29] MEDS: VITAMIN D 1,000 INTERNATIONAL UNITS TABLET PO SCH (08:37)
[2016-12-29] MEDS: BISOPROLOL FUMARATE 5 MG TAB PO SCH (08:43)
[2016-12-29 09:05] LABS: INR 1.29
[2016-12-29] MEDS: RIVAROXABAN 20 MG TAB (XARELTO) PO SCH (13:52)
[2016-12-29] MEDS: ASPIRIN 81 MG ENTERIC TAB PO SCH (13:53)
[2016-12-29] MEDS: SODIUM CHLORIDE 0.9% INJ 10 ML SYR IV PRN (13:58)
[2016-12-29 14:00] VITALS: BP 138/65
--- NOTE | 2016-12-29 17:30 | REP ---
Procedure: PICC line insertion with Sowmya-Dhara The procedure was performed under the direct supervision of Dr. Galvin. The risks and benefits of the procedure were explained to the patient and informed consent was obtained. The right basilic vein was localized using ultrasound guidance. The skin was prepped and draped in a sterile fashion. 2% lidocaine was used as a local anesthetic. Using ultrasound guidance the basilic vein was cannulated and a 0.018 guidewire was inserted and advanced to the SVC using fluoroscopic guidance. The needle was removed and a 4.5 Faroese dilator and peel-away sheath was inserted over the guide wire. A 4.5 Faroese single lumen catheter was cut to length of 41 cm. The dilator was removed and the catheter was inserted over the guide wire with the tip ending in the SVC. The peel-away sheath was removed and the catheter was flushed with heparinized saline as per Hospital protocol. The catheter was affixed to the skin and a sterile dressing was applied. The the patient tolerated the procedure well and there were no immediate complications. 0.1 minutes of fluoro time was utilized for this procedure. Reviewed by KERMIT Real 12/29/2016 04:32 PSigned by Fady Galvin MD 12/29/2016 05:19 P
[2016-12-29] MEDS: SODIUM CHLORIDE 0.9% INJ 10 ML SYR IV SCH (17:59)
--- NOTE | 2016-12-29 18:42 | IPN ---
DATE: 12/29/2016 Patient seen and examined. Reported respiration much improved. Continues to have cough. Denies any chest pain, pressure or discomfort. VITAL SIGNS: Temperature 98.6, pulse 82, respirations 16, blood pressure 138/65, pulse oximetry 96% on room air. LABORATORY: WBC 7.4, hemoglobin and hematocrit (H and H) 8.5/26.6, platelets 197. Chemistry: Sodium 141, potassium 3.6, chloride 113, bicarbonate 19, BUN 16, creatinine 1.14. PHYSICAL EXAMINATION: GENERAL: Patient alert and oriented times three. In no acute distress. HEENT: Normocephalic, atraumatic. PULMONARY: Diminished breath sounds. Mild crackles bilateral base, right greater than left. CARDIAC: Regular rate and rhythm. Normal S1, S2. ABDOMEN: Soft, nontender, nondistended. Positive bowel sounds. EXTREMITIES: No edema of bilateral lower extremities. ASSESSMENT AND PLAN: This is a 81-year-old female patient with underlying history of chronic obstructive pulmonary disease (COPD), not on home oxygen, hypertension, coronary artery disease, congestive heart failure (CHF), deep venous thrombosis (DVT) in the left lower extremity diagnosed in 09/2016, on Xarelto, diabetes, gastroesophageal reflux disease (GERD), gout, presented to the emergency room with productive cough, shortness of breath, with two week history of dark yellow sputum. Denies any fever or chills. CT of the chest shows multifocal pneumonia and atelectasis right lower lobe, right middle lobe and right-sided pleural effusion. Patient initially was placed on broad spectrum antibiotics with vancomycin and cefepime, but culture grows extended-spectrum beta-lactamases (ESBL) Klebsiella. Subsequently, antibiotic switched to meropenem. 1. Multifocal pneumonia secondary to extended-spectrum beta-lactamases (ESBL) Klebsiella. Antibiotics switched to meropenem. Oxygen supplementation as needed. Nebulizer treatment. 2. Acute hypoxic respiratory failure secondary to multifocal and pneumonia extended-spectrum beta-lactamases (ESBL) Klebsiella. Continue treatment as above. Nebulizer treatment. Continue the meropenem, nebulizer treatment. Follow up C-reactive protein. Patient will need 5-7 days of intravenous (IV) antibiotics. Today is day number two. 3. Acute kidney injury secondary to dehydration. Underlying infection, decreased oral intake versus hyperkalemia. Patient was given IV fluids initially. Currently BUN and creatinine is back to baseline with electrolytes also back to baseline. As patient's infection improves, will consider restarting Lasix. 4. Anemia, possibly dilutional. Follow up hemoglobin and hematocrit (H and H). Currently stable. 5. History of chronic obstructive pulmonary disease (COPD). Patient with rhonchi, very minimal wheeze. Continue nebulizer treatment, Advair. Will continue to monitor. 6. Diabetes. Continue basal bolus insulin. Adjust as needed. 7. Coronary artery disease with stents. Patient on Xarelto for deep venous thrombosis (DVT). Continue Zebeta, aspirin. Monitor blood pressure. 8. Deep venous thrombosis (DVT). Continue Xarelto. 9. Hypertension. Continue bisoprolol. Monitor blood pressure. Adjust as needed. 10. Deep venous thrombosis (DVT) prophylaxis. Patient undergoing treatment for DVT with Xarelto. DISPOSITION: Pending clinical improvement, completion of IV antibiotics.
[2016-12-29] MEDS: LATANOPROST 0.005% OPHTH SOLN 2.5 ML OU SCH (20:09)
[2016-12-29] MEDS: LEVEMIR (INSULIN DETEMIR) 1 UNITS/0.01ML SC SCH (21:12)
[2016-12-29 22:00] VITALS: BP 125/60
[2016-12-30] MEDS: IPRATROPIUM 0.5MG/ALBUTEROL 2.5MG INH SOL UD 3ML (DUONEB)(J7620) NEB SCH ×6 (03:50→23:56)
[2016-12-30] MEDS: MEROPENEM INJ 1 GM in D5W MINI-BAG PLUS 100 ML IV SCH ×3 (04:34→19:47)
[2016-12-30] MEDS: SODIUM CHLORIDE 0.9% INJ 10 ML SYR IV SCH ×2 (05:26→17:38)
[2016-12-30 05:47] LABS: BASO % 0.3 % (0.0-1.0); EOS # 0.2 K/mm3 (0.0-0.50); EOS % 2.9 % (0.0-3.0); LARGE UNSTAINED CELL # 0.2 K/mm3 (0.0-0.4); LARGE UNSTAINED CELL % 2.1 % (0.0-4.0); LYMPH % 25.4 % (24.0-44.0); MEAN CORPUSCULAR HEMOGLOBIN 31.4 pg (27.0-33.0); MEAN CORPUSCULAR HGB CONC 31.1 g/dl (32.0-36.5); MONO # 0.5 K/mm3 (0.0-0.8); MONO % 6.8 % (0.0-5.0); NEUTROPHILS # 4.4 K/mm3 (1.8-7.7); NEUTROPHILS % 62.4 % (36.0-66.0); PLATELET COUNT, AUTOMATED 218 k/mm3 (150-450); WHITE BLOOD COUNT 7.1 K/mm3 (4.0-10.0)
[2016-12-30 06:00] VITALS: BP 121/63
[2016-12-30 06:09] LABS: CALCIUM LEVEL 8.5 MG/DL (8.8-10.2); CREATININE FOR GFR 1.07 MG/DL (0.55-1.02); GLOMERULAR FILTRATION RATE 52.7 (>39); POTASSIUM SERUM 3.6 MEQ/L (3.5-5.1)
[2016-12-30] MEDS ORDERED: POTASSIUM CHLORIDE 10 MEQ SR TABLET PO ONE (07:30)
[2016-12-30] MEDS: HumaLOG INSULIN (NovoLOG) PER UNIT SC SCH ×4 (07:30→20:27)
[2016-12-30] MEDS: ADVAIR DISKUS 250/50 INH PWD INH SCH ×2 (07:58→20:47)
[2016-12-30] MEDS: OMEPRAZOLE 20 MG CAP PO SCH (08:40)
[2016-12-30] MEDS: VITAMIN D 1,000 INTERNATIONAL UNITS TABLET PO SCH (08:40)
[2016-12-30] MEDS: ASPIRIN 81 MG ENTERIC TAB PO SCH (08:41)
[2016-12-30] MEDS: FERROUS GLUCONATE 324 MG TAB PO SCH (08:41)
[2016-12-30] MEDS: RIVAROXABAN 20 MG TAB (XARELTO) PO SCH (08:41)
[2016-12-30] MEDS: guaiFENesin ER 600 MG TAB PO SCH ×2 (08:42→19:48)
[2016-12-30] MEDS: CALCITRIOL 0.25 MCG CAP (S0169) PO SCH (08:43)
[2016-12-30] MEDS: ALLOPURINOL 100 MG TAB PO SCH (08:43)
[2016-12-30] MEDS: BRINZOLAMIDE 1 % OPHTH SUSP (AZOPT) 10ML OU SCH ×2 (08:44→19:48)
[2016-12-30] MEDS: BISOPROLOL FUMARATE 5 MG TAB PO SCH (08:45)
[2016-12-30 14:00] VITALS: BP 131/59
--- NOTE | 2016-12-30 18:59 | IPN ---
DATE: 12/30/2016 Patient seen and examined. No acute events overnight. Continued to report cough but much improved. Denies any fevers or chills, chest pain, pressure or discomfort. Reported aspiration almost back to baseline. VITAL SIGNS: Temperature 98.2, pulse 68, respirations 20, blood pressure 131/59, pulse oximetry 95% on room air. LABORATORY: WBC 7.1, hemoglobin and hematocrit (H and H) 8.2/26.3, platelets 218. Chemistry: Sodium 143, potassium 3.6, chloride 113, bicarbonate 21, BUN 13 creatinine 1.17, C-reactive protein 5.4. PHYSICAL EXAMINATION: GENERAL: Patient alert and oriented times three. In no acute distress. HEENT: Normocephalic, atraumatic. PULMONARY: Diminished breath sounds. Mild fine crackles bilateral base, right greater than left. CARDIAC: Regular rate and rhythm. Normal S1, S2. ABDOMEN: Soft, nontender, nondistended. Positive bowel sounds. EXTREMITIES: No edema of bilateral lower extremities. ASSESSMENT AND PLAN: This is a 81-year-old female patient with underlying medical history of chronic obstructive pulmonary disease (COPD), not on home oxygen, hypertension, coronary artery disease with congestive heart failure (CHF), deep venous thrombosis (DVT) in the left lower extremity diagnosed in 09/2016, on Xarelto, diabetes, gastroesophageal reflux disease (GERD), gout, presented to the emergency room with productive cough, shortness of breath, with two week history of dark yellow sputum. Denies any fever or chills. CT of the chest shows multifocal pneumonia and atelectasis right lower lobe, right middle lobes and right-sided pleural effusion. Patient initially was placed on broad spectrum antibiotics with vancomycin and cefepime, but culture grows extended-spectrum beta-lactamases (ESBL) Klebsiella. Subsequently, antibiotic switched to meropenem. 1. Multifocal pneumonia secondary to extended-spectrum beta-lactamases (ESBL) Klebsiella. Antibiotics switched to meropenem. Today is day #3 of meropenem. Oxygen supplementation. Followup C-reactive protein. Nebulizer treatment. 2. Acute hypoxic respiratory failure secondary to multifocal pneumonia due to extended-spectrum beta-lactamases (ESBL) Klebsiella. Wean FiO2. Continue treatment as above. Nebulizer treatment. Continue the meropenem. Follow up C-reactive protein. Patient will need 5-7 days of intravenous (IV) antibiotics. Today is day #3. 3. Acute kidney injury secondary to dehydration. Underlying infection, decreased oral intake versus dehydration with hyperkalemia. Patient was given IV fluids. Currently BUN and creatinine is back to baseline. Followup electrolytes Will consider restarting Lasix tomorrow. 4. Anemia, possibly dilutional. Follow up hemoglobin and hematocrit (H and H). Currently stable. 5. History of chronic obstructive pulmonary disease (COPD) with rhonchi, very minimal wheeze. Continue nebulizer treatment, Advair. Will continue to monitor. 6. Diabetes. Continue basal bolus insulin. Adjust as needed. 7. Coronary artery disease with stents. Patient on Xarelto for deep venous thrombosis (DVT). Continue Zebeta, aspirin. Monitor blood pressure. 8. History of deep venous thrombosis (DVT). Continue Xarelto. 9. Hypertension. Continue bisoprolol. Monitor blood pressure. Adjust as needed. 10. Deep venous thrombosis (DVT) prophylaxis. Patient on treatment for DVT with Xarelto. DISPOSITION: Pending clinical improvement, completion of antibiotics.
[2016-12-30] MEDS: LEVEMIR (INSULIN DETEMIR) 1 UNITS/0.01ML SC SCH (19:48)
[2016-12-30] MEDS: LATANOPROST 0.005% OPHTH SOLN 2.5 ML OU SCH (19:48)
[2016-12-30 22:00] VITALS: BP 119/56
[2016-12-30 23:50] VITALS: O2SAT 83
[2016-12-30 23:52] VITALS: O2SAT 95
[2016-12-31] MEDS: MEROPENEM INJ 1 GM in D5W MINI-BAG PLUS 100 ML IV SCH ×3 (03:32→20:04)
[2016-12-31] MEDS: SODIUM CHLORIDE 0.9% INJ 10 ML SYR IV SCH ×2 (03:34→17:40)
[2016-12-31] MEDS: IPRATROPIUM 0.5MG/ALBUTEROL 2.5MG INH SOL UD 3ML (DUONEB)(J7620) NEB SCH ×5 (04:07→20:00)
[2016-12-31 05:27] LABS: BASO % 0.3 % (0.0-1.0); EOS # 0.2 K/mm3 (0.0-0.50); EOS % 3.3 % (0.0-3.0); LARGE UNSTAINED CELL # 0.2 K/mm3 (0.0-0.4); LARGE UNSTAINED CELL % 2.6 % (0.0-4.0); LYMPH # 2.7 K/mm3 (1.5-4.5); LYMPH % 38.3 % (24.0-44.0); MEAN CORPUSCULAR HEMOGLOBIN 31.6 pg (27.0-33.0); MEAN CORPUSCULAR HGB CONC 31.8 g/dl (32.0-36.5); MEAN CORPUSCULAR VOLUME 99.4 fl (80.0-96.0); MONO # 0.4 K/mm3 (0.0-0.8); MONO % 6.2 % (0.0-5.0); NEUTROPHILS # 3.2 K/mm3 (1.8-7.7); NEUTROPHILS % 49.3 % (36.0-66.0); PLATELET COUNT, AUTOMATED 256 k/mm3 (150-450); WHITE BLOOD COUNT 6.5 K/mm3 (4.0-10.0)
[2016-12-31 05:58] LABS: CALCIUM LEVEL 8.4 MG/DL (8.8-10.2); CREATININE FOR GFR 0.99 MG/DL (0.55-1.02); GLOMERULAR FILTRATION RATE 57.6 (>39); MAGNESIUM LEVEL 1.3 MG/DL (1.8-2.4); POTASSIUM SERUM 4.1 MEQ/L (3.5-5.1)
[2016-12-31 06:00] VITALS: BP 126/62
[2016-12-31] MEDS: ADVAIR DISKUS 250/50 INH PWD INH SCH ×2 (07:22→20:17)
[2016-12-31] MEDS: HumaLOG INSULIN (NovoLOG) PER UNIT SC SCH ×4 (07:49→20:16)
[2016-12-31] MEDS: CALCITRIOL 0.25 MCG CAP (S0169) PO SCH (08:49)
[2016-12-31] MEDS: OMEPRAZOLE 20 MG CAP PO SCH (08:49)
[2016-12-31] MEDS: FERROUS GLUCONATE 324 MG TAB PO SCH (08:50)
[2016-12-31] MEDS: ASPIRIN 81 MG ENTERIC TAB PO SCH (08:50)
[2016-12-31] MEDS: VITAMIN D 1,000 INTERNATIONAL UNITS TABLET PO SCH (08:50)
[2016-12-31] MEDS: guaiFENesin ER 600 MG TAB PO SCH ×2 (08:51→20:05)
[2016-12-31] MEDS: ALLOPURINOL 100 MG TAB PO SCH (08:51)
[2016-12-31] MEDS: RIVAROXABAN 20 MG TAB (XARELTO) PO SCH (08:51)
[2016-12-31] MEDS: BISOPROLOL FUMARATE 5 MG TAB PO SCH (08:52)
[2016-12-31] MEDS: BRINZOLAMIDE 1 % OPHTH SUSP (AZOPT) 10ML OU SCH ×2 (08:53→20:08)
[2016-12-31] MEDS: FUROSEMIDE 20 MG TAB PO SCH (09:00)
[2016-12-31 13:53] VITALS: BP 115/55
[2016-12-31] MEDS: SODIUM CHLORIDE 0.9% INJ 10 ML SYR IV PRN (14:02)
[2016-12-31] MEDS: LEVEMIR (INSULIN DETEMIR) 1 UNITS/0.01ML SC SCH (20:05)
[2016-12-31] MEDS: MAG SULF 1GM/100ML (MAG RUN) 1 GM in APPROPRIATE DILUENT 1 EA IV SCH ×2 (20:06→22:24)
[2016-12-31] MEDS: LATANOPROST 0.005% OPHTH SOLN 2.5 ML OU SCH (20:09)
--- NOTE | 2016-12-31 21:00 | IPN ---
DATE: 01/01/2016 Patient seen and examined. No acute events overnight. Denies any fevers or chills, chest pain, pressure or discomfort. Reported cough much improvesd. VITAL SIGNS: Temperature 98.8, pulse 75, respirations 26, blood pressure 115/55, pulse oximetry 96% on room air. LABORATORY: WBC 6.5, hemoglobin and hematocrit (H and H) 8.2/25.8, platelets 256. Chemistry: Sodium 142, potassium 4.1, chloride 113, bicarbonate 20, BUN 13, creatinine 0.99. PHYSICAL EXAMINATION: GENERAL: Patient alert and oriented times three. In no acute distress. HEENT: Normocephalic, atraumatic. PULMONARY: Diminished breath sounds bilateral base. No significant crackles. CARDIAC: Regular rate and rhythm. Normal S1, S2. ABDOMEN: Soft, nontender, nondistended. Positive bowel sounds. EXTREMITIES: No edema of bilateral lower extremities. ASSESSMENT AND PLAN: This is a 81-year-old female patient with underlying medical history of chronic obstructive pulmonary disease (COPD), not on home oxygen, hypertension, coronary artery disease with congestive heart failure (CHF), deep venous thrombosis (DVT) in the left lower extremity diagnosed in 09/2016, on Xarelto, diabetes, gastroesophageal reflux disease (GERD), gout, presented to the emergency room with productive cough, shortness of breath, with two week history of dark yellow sputum. Denies any fever or chills. CT chest shows multifocal pneumonia and atelectasis right lower lobe, right middle lobes and right-sided pleural effusion. Patient initially was placed on broad spectrum antibiotics with vancomycin and cefepime, but culture from sputum extended-spectrum beta-lactamases (ESBL) Klebsiella. Subsequently, antibiotic switched to meropenem. 1. Multifocal pneumonia secondary to extended-spectrum beta-lactamases (ESBL) Klebsiella. Antibiotics on meropenem. Today is day #4 of antibiotics. Oral supplementation. Followup C-reactive protein. Nebulizer treatment. 2. Acute hypoxic respiratory failure secondary to multifocal pneumonia due to extended-spectrum beta-lactamases (ESBL) Klebsiella. Wean FiO2. Continue treatment as above. Nebulizer treatment. Continue antibiotics. 3. Acute kidney injury secondary to dehydration. Underlying infection. Decreased oral intake versus dehydration. Patient was given IV fluids. BUN and creatinine back to baseline. Continue to follow. Lasix has been restarted. 4. Anemia, possibly dilutional. Follow up hemoglobin and hematocrit (H and H). Transfuse as needed. 5. History of chronic obstructive pulmonary disease (COPD). Very minimal wheeze. Nebulizer treatment. Advair. Continue to monitor. 6. Diabetes. Basal bolus insulin. Adjust as needed. 7. Coronary artery disease. Patient on Xarelto for deep venous thrombosis (DVT), Zebeta, aspirin. Lasix has been restarted. Monitor blood pressure. 8. History of deep venous thrombosis (DVT). Continue Xarelto. 9. Hypertension. Bisoprolol and Lasix. Monitor blood pressure. Adjust as needed. 10. Deep venous thrombosis (DVT) prophylaxis. Patient on treatment for DVT with Xarelto. DISPOSITION: Pending completion of antibiotics, possible discharge over the next 2-3 days.
[2016-12-31 22:00] VITALS: BP 118/58
[2017-01-01] MEDS: IPRATROPIUM 0.5MG/ALBUTEROL 2.5MG INH SOL UD 3ML (DUONEB)(J7620) NEB SCH ×7 (01:07→22:59)
[2017-01-01] MEDS: MEROPENEM INJ 1 GM in D5W MINI-BAG PLUS 100 ML IV SCH ×3 (03:04→20:46)
[2017-01-01] MEDS: SODIUM CHLORIDE 0.9% INJ 10 ML SYR IV SCH ×2 (03:05→18:00)
[2017-01-01 05:51] LABS: BASO % 0.3 % (0.0-1.0); EOS # 0.2 K/mm3 (0.0-0.50); EOS % 2.7 % (0.0-3.0); LARGE UNSTAINED CELL # 0.2 K/mm3 (0.0-0.4); LARGE UNSTAINED CELL % 2.4 % (0.0-4.0); LYMPH # 2.7 K/mm3 (1.5-4.5); LYMPH % 36.1 % (24.0-44.0); MEAN CORPUSCULAR HEMOGLOBIN 33.3 pg (27.0-33.0); MEAN CORPUSCULAR HGB CONC 33.3 g/dl (32.0-36.5); MEAN CORPUSCULAR VOLUME 100.1 fl (80.0-96.0); MONO # 0.4 K/mm3 (0.0-0.8); MONO % 5.5 % (0.0-5.0); NEUTROPHILS # 3.9 K/mm3 (1.8-7.7); PLATELET COUNT, AUTOMATED 291 k/mm3 (150-450); RED CELL DISTRIBUTION WIDTH 14.9 % (11.5-14.5); WHITE BLOOD COUNT 7.4 K/mm3 (4.0-10.0)
[2017-01-01 06:00] VITALS: BP 133/63
[2017-01-01 06:30] LABS: ANION GAP 10 MEQ/L (8-16); BLOOD UREA NITROGEN 10 MG/DL (7-18); CALCIUM LEVEL 8.2 MG/DL (8.8-10.2); CARBON DIOXIDE LEVEL 19 MEQ/L (21-32); CHLORIDE LEVEL 113 MEQ/L (98-107); CREATININE FOR GFR 0.84 MG/DL (0.55-1.02); GLOMERULAR FILTRATION RATE > 60.0 (>39); GLUCOSE, FASTING 97 MG/DL (83-110); MAGNESIUM LEVEL 1.9 MG/DL (1.8-2.4); POTASSIUM SERUM 3.7 MEQ/L (3.5-5.1); SODIUM LEVEL 142 MEQ/L (136-145)
[2017-01-01] MEDS: HumaLOG INSULIN (NovoLOG) PER UNIT SC SCH ×4 (07:15→21:00)
[2017-01-01] MEDS: ADVAIR DISKUS 250/50 INH PWD INH SCH ×2 (07:36→20:19)
[2017-01-01] MEDS: TIOTROPIUM INHALER/CAPSULE (SPIRIVA) INH SCH (08:00)
[2017-01-01 08:42] VITALS: BP 131/62
[2017-01-01] MEDS: BISOPROLOL FUMARATE 5 MG TAB PO SCH (09:00)
[2017-01-01] MEDS: CALCITRIOL 0.25 MCG CAP (S0169) PO SCH (09:38)
[2017-01-01] MEDS: ASPIRIN 81 MG ENTERIC TAB PO SCH (09:43)
[2017-01-01] MEDS: VITAMIN D 1,000 INTERNATIONAL UNITS TABLET PO SCH (09:43)
[2017-01-01] MEDS: FERROUS GLUCONATE 324 MG TAB PO SCH (09:44)
[2017-01-01] MEDS: ALLOPURINOL 100 MG TAB PO SCH (09:44)
[2017-01-01] MEDS: OMEPRAZOLE 20 MG CAP PO SCH (09:44)
[2017-01-01] MEDS: RIVAROXABAN 20 MG TAB (XARELTO) PO SCH (09:45)
[2017-01-01] MEDS: FUROSEMIDE 20 MG TAB PO SCH (09:47)
[2017-01-01] MEDS: guaiFENesin ER 600 MG TAB PO SCH ×2 (09:48→20:46)
[2017-01-01] MEDS: BRINZOLAMIDE 1 % OPHTH SUSP (AZOPT) 10ML OU SCH ×2 (09:51→20:49)
[2017-01-01 14:00] VITALS: BP 110/56
[2017-01-01] MEDS: LEVEMIR (INSULIN DETEMIR) 1 UNITS/0.01ML SC SCH (20:48)
[2017-01-01] MEDS: LATANOPROST 0.005% OPHTH SOLN 2.5 ML OU SCH (20:48)
[2017-01-01 22:00] VITALS: BP 117/58
[2017-01-01] MEDS: SODIUM CHLORIDE 0.9% INJ 10 ML SYR IV PRN (22:12)
[2017-01-02] MEDS: IPRATROPIUM 0.5MG/ALBUTEROL 2.5MG INH SOL UD 3ML (DUONEB)(J7620) NEB SCH ×6 (03:35→23:47)
[2017-01-02] MEDS: MEROPENEM INJ 1 GM in D5W MINI-BAG PLUS 100 ML IV SCH ×3 (04:36→21:00)
[2017-01-02 04:49] LABS: MEAN CORPUSCULAR HEMOGLOBIN 33.4 pg (27.0-33.0); MEAN CORPUSCULAR HGB CONC 33.6 g/dl (32.0-36.5); MEAN CORPUSCULAR VOLUME 99.5 fl (80.0-96.0); RED CELL DISTRIBUTION WIDTH 14.8 % (11.5-14.5)
[2017-01-02 05:10] LABS: ANION GAP 9 MEQ/L (8-16); BLOOD UREA NITROGEN 11 MG/DL (7-18); CALCIUM LEVEL 8.1 MG/DL (8.8-10.2); CARBON DIOXIDE LEVEL 22 MEQ/L (21-32); CHLORIDE LEVEL 110 MEQ/L (98-107); CREATININE FOR GFR 0.85 MG/DL (0.55-1.02); GLOMERULAR FILTRATION RATE > 60.0 (>39); GLUCOSE, FASTING 110 MG/DL (83-110); MAGNESIUM LEVEL 1.6 MG/DL (1.8-2.4); POTASSIUM SERUM 3.5 MEQ/L (3.5-5.1); SODIUM LEVEL 141 MEQ/L (136-145)
[2017-01-02] MEDS: SODIUM CHLORIDE 0.9% INJ 10 ML SYR IV SCH ×2 (05:24→14:00)
[2017-01-02 06:00] VITALS: BP 125/59
[2017-01-02] MEDS: HumaLOG INSULIN (NovoLOG) PER UNIT SC SCH ×4 (07:30→21:01)
[2017-01-02] MEDS: TIOTROPIUM INHALER/CAPSULE (SPIRIVA) INH SCH (07:46)
[2017-01-02] MEDS: ADVAIR DISKUS 250/50 INH PWD INH SCH ×2 (07:46→20:17)
[2017-01-02] MEDS ORDERED: POTASSIUM CHLORIDE 10 MEQ SR TABLET PO ONE (08:15)
[2017-01-02] MEDS ORDERED: MAG SULF 1GM/100ML (MAG RUN) 1 GM in APPROPRIATE DILUENT 1 EA IV ONE (08:15)
[2017-01-02] MEDS: OMEPRAZOLE 20 MG CAP PO SCH (10:33)
[2017-01-02] MEDS: RIVAROXABAN 20 MG TAB (XARELTO) PO SCH (10:33)
[2017-01-02] MEDS: predniSONE 20 MG TAB PO SCH (10:33)
[2017-01-02] MEDS: VITAMIN D 1,000 INTERNATIONAL UNITS TABLET PO SCH (10:35)
[2017-01-02] MEDS: ALLOPURINOL 100 MG TAB PO SCH (10:35)
[2017-01-02] MEDS: guaiFENesin ER 600 MG TAB PO SCH ×2 (10:36→21:01)
[2017-01-02] MEDS: ASPIRIN 81 MG ENTERIC TAB PO SCH (10:36)
[2017-01-02] MEDS: CALCITRIOL 0.25 MCG CAP (S0169) PO SCH (10:36)
[2017-01-02] MEDS: FUROSEMIDE 20 MG TAB PO SCH (10:37)
[2017-01-02] MEDS: BISOPROLOL FUMARATE 5 MG TAB PO SCH (10:37)
[2017-01-02] MEDS: FERROUS GLUCONATE 324 MG TAB PO SCH (10:38)
[2017-01-02] MEDS: BRINZOLAMIDE 1 % OPHTH SUSP (AZOPT) 10ML OU SCH ×2 (10:39→21:01)
[2017-01-02 14:00] VITALS: BP 144/70
--- NOTE | 2017-01-02 15:05 | IPN ---
DATE: 01/01/2017 The patient seen and examined. No acute events overnight. Denies any chest pain, pressure, discomfort, fever or chills. VITAL SIGNS: Temperature 97.6, pulse 66, respirations 22, blood pressure 110/56, pulse oximetry 94% on room air. LABORATORY: WBC 7.4, hemoglobin and hematocrit 8.8/26.4, platelets 291. Chemistry: Sodium 142, potassium 2.9, chloride 113, bicarbonate 19, BUN 10, creatinine 0.84. C-reactive protein down to 2.5. PHYSICAL EXAMINATION: GENERAL: The patient alert and oriented times three. In no acute distress. HEENT: Normocephalic, atraumatic. PULMONARY: Mild wheeze bilateral. No rhonchi. Good air movement. CARDIAC: Regular rate and rhythm. Normal S1, S2. ABDOMEN: Soft, nontender, nondistended. Positive bowel sounds. EXTREMITIES: No edema bilateral lower extremities. ASSESSMENT AND PLAN: This is a 81-year-old female patient with underlying medical history, not on home oxygen, hypertension, coronary arterial disease, with congestive heart failure (CHF), deep venous thrombosis (DVT) of left lower extremity diagnosed September 2016, on Xarelto, diabetes, gastroesophageal reflux disease (GERD), gout presented to the emergency room with productive cough, shortness of breath with two week history of dark yellow sputum. Denies any fevers or chills. CT of the chest showed mostly focal pneumonia with infiltrate right lower lobe, right middle lobe and right sided pleural effusion. The patient was initially placed on broad spectrum antibiotics, vancomycin and cefepime. Blood cultures and sputum shows extended spectrum beta-lactamase (ESBL), Klebsiella. Subsequent antibiotics switched to meropenem. PROBLEM LIST: 1. Multifocal pneumonia secondary to ESBL Klebsiella. Antibiotics switched to meropenem. Today is day #5 of antibiotics. Oral supplementation. Followup C-reactive protein, followup cultures appreciated. Nebulizer treatment. 2. Acute hypoxic respiratory failure secondary to multifocal pneumonia due to ESBL Klebsiella. Wean FiO2. Continue treatment as above. Nocturnal oximetry ordered. Nebulizer treatment. Continue antibiotic. 3. Acute kidney injury secondary to dehydration. Underlying infection. Decrease oral intake. IV fluid initially given. BUN and creatinine back to baseline. Continue to follow. Lasix restarted. 4. Anemia. Possibly dilutional. Follow hemoglobin and hematocrit. Transfuse as needed. 5. History of chronic obstructive pulmonary disease (COPD). Very minimal wheeze. Nebulizer treatment and Advair. Continue to monitor. Spiriva has been added. 6. Diabetes. Basal bolus insulin. Adjust as needed. 7. Coronary arterial disease. The patient on Xarelto for DVT, aspirin, Zebeta, Lasix restarted. Monitor blood pressure. 8. History of DVT. Continue Xarelto. 9. Hypertension. Continue bisoprolol, Lasix. Monitor blood pressure. Adjust as needed. 10. DVT prophylaxis. The patient on treatment for DVT with Xarelto. DISPOSITION: Likely discharge on Wednesday with 7 day course of IV antibiotics.
--- NOTE | 2017-01-02 18:32 | IPN ---
DATE: 01/02/2017 SUBJECTIVE: The patient is seen and examined. No acute events overnight. Denies any chest pain, pressure, discomfort, fevers or chills, but mild cough. VITAL SIGNS: Temperature 97.9, pulse 67, respirations 20, blood pressure 125/59, pulse oximetry 94% on room air. LABORATORY DATA: WBC 8, hemoglobin and hematocrit 8.6 over 25.7, platelets 319. Chemistry: Sodium 141, potassium 3.5, chloride 110, bicarbonate 23, BUN 11, creatinine 0.85, magnesium 1.6. PHYSICAL EXAMINATION: GENERAL: Patient alert and oriented times three in no acute distress. HEENT: Normocephalic, atraumatic. PULMONARY: Mild expiratory wheeze bilaterally. No rhonchi. CARDIAC: Regular rate and rhythm. Normal S1, S2. 2/6 systolic murmur. ABDOMEN: Soft, nontender. Positive bowel sounds. EXTREMITIES: No edema bilateral lower extremities. ASSESSMENT AND PLAN: This is a 81-year-old patient with underlying medical history of hypertension, coronary arterial disease with congestive heart failure (CHF), history of deep venous thrombosis (DVT) of left lower extremity diagnosed September 2016, on Xarelto, diabetes type 2, gastroesophageal reflux disease (GERD), gout, chronic obstructive pulmonary disease (COPD) not on home oxygen, presented to the emergency room with some productive cough, shortness of breath, cough up dark yellow sputum, denies any fever or chills. CT of the chest shows multifocal pneumonia with infiltrate right lower, right middle lobe, and right-sided pleural effusion. The patient was initially placed on broad-spectrum antibiotics vancomycin and cefepime. Sputum culture showing extended-spectrum beta-lactamase (ESBL) Klebsiella. Subsequently, antibiotics switched to meropenem. 1. Multifocal pneumonia secondary to ESBL Klebsiella. Antibiotics switched to meropenem, day six of antibiotics. Followup C-reactive protein. Followup cultures. Nebulizer treatment. 2. Acute hypoxic respiratory failure secondary to multifocal pneumonia due to ESBL Klebsiella. Wean FiO2. Continue treatment as above. Nocturnal pulse oximetry. Nebulizer treatment. Continue antibiotic. 3. Acute kidney injury secondary to dehydration, underlying infection, decreased oral intake. Intravenous (IV) fluids initially given. Blood urea nitrogen (BUN) and creatinine back to baseline. Lasix restarted at lower dose. Continue to follow. 4. Anemia, possibly dilutional. Followup hemoglobin and hematocrit, transfuse as needed. 5. History of chronic obstructive pulmonary disease. Rare minimal wheeze. Nebulizer treatments. Advair. Trial of steroid dose with taper. 6. Diabetes. Basal bolus insulin, adjust as needed. 7. Coronary arterial disease. The patient on Xarelto for DVT, aspirin, Zebeta, Lasix restarted. Monitor blood pressure. 8. History of deep venous thrombosis. Continue Xarelto. 9. Hypertension. Continue Zebeta, Lasix. Monitor blood pressure. Adjust as needed. 10. Deep venous thrombosis prophylaxis. Patient on Xarelto for treatment of DVT. DISPOSITION: Likely discharge after seven-day course of antibiotics. MTDD
[2017-01-02] MEDS: LEVEMIR (INSULIN DETEMIR) 1 UNITS/0.01ML SC SCH (21:00)
[2017-01-02] MEDS: LATANOPROST 0.005% OPHTH SOLN 2.5 ML OU SCH (21:02)
[2017-01-02 22:00] VITALS: BP 133/62
[2017-01-02] MEDS: SODIUM CHLORIDE 0.9% INJ 10 ML SYR IV PRN (22:05)
[2017-01-03] MEDS: IPRATROPIUM 0.5MG/ALBUTEROL 2.5MG INH SOL UD 3ML (DUONEB)(J7620) NEB SCH ×2 (02:35→08:00)
[2017-01-03] MEDS: MEROPENEM INJ 1 GM in D5W MINI-BAG PLUS 100 ML IV SCH ×2 (04:11→12:00)
[2017-01-03 04:38] LABS: MEAN CORPUSCULAR HEMOGLOBIN 30.9 pg (27.0-33.0); MEAN CORPUSCULAR VOLUME 99.5 fl (80.0-96.0); RED CELL DISTRIBUTION WIDTH 14.8 % (11.5-14.5); WHITE BLOOD COUNT 6.9 K/mm3 (4.0-10.0)
[2017-01-03 04:49] LABS: CALCIUM LEVEL 8.1 MG/DL (8.8-10.2); CREATININE FOR GFR 0.99 MG/DL (0.55-1.02); GLOMERULAR FILTRATION RATE 57.6 (>39); MAGNESIUM LEVEL 1.8 MG/DL (1.8-2.4); POTASSIUM SERUM 3.8 MEQ/L (3.5-5.1)
[2017-01-03] MEDS: SODIUM CHLORIDE 0.9% INJ 10 ML SYR IV SCH (05:12)
[2017-01-03 06:00] VITALS: BP 117/68
[2017-01-03] MEDS: HumaLOG INSULIN (NovoLOG) PER UNIT SC SCH ×2 (07:30→12:00)
[2017-01-03] MEDS: ADVAIR DISKUS 250/50 INH PWD INH SCH (07:39)
[2017-01-03 09:00] VITALS: BP 117/68
[2017-01-03] MEDS: BISOPROLOL FUMARATE 5 MG TAB PO SCH (09:00)
[2017-01-03] MEDS: OMEPRAZOLE 20 MG CAP PO SCH (09:20)
[2017-01-03] MEDS: ALLOPURINOL 100 MG TAB PO SCH (09:20)
[2017-01-03] MEDS: RIVAROXABAN 20 MG TAB (XARELTO) PO SCH (09:20)
[2017-01-03] MEDS: ASPIRIN 81 MG ENTERIC TAB PO SCH (09:21)
[2017-01-03] MEDS: predniSONE 20 MG TAB PO SCH (09:21)
[2017-01-03] MEDS: FUROSEMIDE 20 MG TAB PO SCH (09:21)
[2017-01-03] MEDS: VITAMIN D 1,000 INTERNATIONAL UNITS TABLET PO SCH (09:21)
[2017-01-03] MEDS: CALCITRIOL 0.25 MCG CAP (S0169) PO SCH (09:22)
[2017-01-03] MEDS: FERROUS GLUCONATE 324 MG TAB PO SCH (09:22)
[2017-01-03] MEDS: guaiFENesin ER 600 MG TAB PO SCH (09:22)
[2017-01-03] MEDS: BRINZOLAMIDE 1 % OPHTH SUSP (AZOPT) 10ML OU SCH (09:23)
[2017-01-03] MEDS ORDERED: PRED10TA PO (09:33)
--- NOTE | 2017-01-03 22:05 | DSES ---
DATE OF ADMISSION: 12/24/2016 DATE OF DISCHARGE: 01/03/2017 PRIMARY CARE PROVIDER: Gilda Wang DO FINAL DIAGNOSES: 1. Multifocal pneumonia due to extended-spectrum beta-lactamase (ESBL) Klebsiella. 2. Acute hypoxic respiratory failure. 3. Acute kidney injury secondary to dehydration and infection. 4. Anemia. 5. History of chronic obstructive pulmonary disease (COPD). 6. Diabetes. 7. Coronary artery disease. 8. History of deep venous thrombosis (DVT). 9. Hypertension. HISTORY OF PRESENT ILLNESS: This is a 81-year-old female patient with underlying medical history of COPD, not on home oxygen, hypertension, coronary artery disease, congestive heart failure (CHF), diabetes, DVT of the left lower extremity, on Xarelto, diagnosed September 2016, gastroesophageal reflux disease (GERD), and gout, presented to the emergency room with chief complaint of progressive cough, shortness of breath. Patient stated that her symptoms started 2 weeks ago with chronic cough which progressed into cough productive of yellow-brown sputum for the last 24 hours before admission. The patient stated that she awoke in the middle of the night with worsening shortness of breath and persistent cough. She denies any fevers, but does report subjective chills at home. Denies any nausea, vomiting, diarrhea or sick contacts. Recently admitted to the hospital. HOSPITAL COURSE: The patient was admitted to the hospital. CT shows multifocal pneumonia. Initially started on cefepime and vancomycin for broad-spectrum antibiotics but sputum later showed ESBL Klebsiella. Subsequently, antibiotic was switched to meropenem. C-reactive protein was followed which has improved. Patient was also noticed to have increased wheeze, initially did not have any significant wheeze, but later showed increased wheeze. Subsequently, prednisone was started, furthermore, oxygen supplementation was given. Patient was weaned off FiO2 and also physical therapy was done. IV fluids were given for dehydration. Lasix was initially held, later restarted. Electrolytes were followed. Insulin was given for diabetes. The patient's home medication was continued, including Xarelto for anticoagulation, aspirin, Zebeta. Blood pressure was monitored. Patient currently tolerating oral. Back to baseline. Passed physical therapy. Ready for discharge for further care as outpatient. VITAL SIGNS: Temperature 98.2, pulse 87, respirations 20, blood pressure 117/68, pulse oximetry 93% on room air. LABORATORY DATA: WBC 6.9, hemoglobin and hematocrit 8.6/27.8, platelets 341. Chemistry: Sodium 142, potassium 3.8, chloride 110, bicarbonate 23, BUN 13, creatinine 0.99. DISCHARGE MEDICATIONS: - prednisone taper 10 mg tablets, take three tablets by mouth daily for 2 days, then two tablets by mouth daily for 2 days, then one tablet by mouth daily for 2 days, then stop Patient's home medications were continued: - ProAir inhalation every 4 hours as needed - allopurinol 100 mg by mouth daily - aspirin 81 mg by mouth daily - Lumigan one drop nightly - Azopt 1% intraocular twice a day - calcitriol 0.25 mg by mouth daily - vitamin D 2000 units by mouth daily - ferrous sulfate 325 mg by mouth daily - Lasix 20 mg by mouth daily - Lantus 12 units subcutaneous nightly - nitroglycerin 0.4 mg sublingual as needed - fatty acid omega-3 one capsule by mouth twice a day - Prilosec 20 mg by mouth daily - Os-Jamal one tablet by mouth daily - potassium chloride 20 mEq by mouth twice a day - PreserVision one capsule by mouth daily - Xarelto 20 mg by mouth daily - Advair 250/50 mcg inhalation twice a day DISCHARGE INSTRUCTIONS: Patient is instructed to followup with primary care provider in 7 days. Return to the hospital if symptoms worsen.
--- NOTE | 2017-01-04 07:20 | NOCOX ---
DATE OF PROCEDURE: 01/02/2017 INDICATION: Nocturnal recording oximetry was performed on room air. Baseline saturation was 95%. Lowest oxygen saturation 82%. There was a pattern of variable desaturations IMPRESSION: Abnormal nocturnal recording oximetry with variable desaturations to 82%, a pattern consistent with obstructive sleep apnea syndrome.
== END 2017-01-03 14:35 | disposition home health service (06) | DRG 177 ==
LOC: EDBD 02:16 → EDSEX 02:16 → M ED 03:55 → M ED INP 05:26 → EEVIPCON 05:26 → M MS5PR 10:20
PROVIDERS: ADMIT Internal Medicine; ATTEND Hospitalist
PROC: 05HB33Z Insertion of Infusion Device into Right Basilic Vein, Percutaneous Approach (ICD-10-PCS; principal; 2016-12-29)
DX: J15.0 Pneumonia due to Klebsiella pneumoniae (principal); J96.01 Acute respiratory failure with hypoxia; E87.4 Mixed disorder of acid-base balance; I13.0 Hypertensive heart and chronic kidney disease with heart failure and stage 1 through stage 4 chronic kidney disease, or unspecified chronic kidney disease; N17.9 Acute kidney failure, unspecified; J98.11 Atelectasis; J90 Pleural effusion, not elsewhere classified; J44.0 Chronic obstructive pulmonary disease with (acute) lower respiratory infection; I25.10 Atherosclerotic heart disease of native coronary artery without angina pectoris; I50.9 Heart failure, unspecified; E11.9 Type 2 diabetes mellitus without complications; N18.9 Chronic kidney disease, unspecified; E87.5 Hyperkalemia; K21.9 Gastro-esophageal reflux disease without esophagitis; D64.9 Anemia, unspecified; M10.9 Gout, unspecified; Z86.718 Personal history of other venous thrombosis and embolism; Z79.01 Long term (current) use of anticoagulants; Z79.82 Long term (current) use of aspirin; Z79.4 Long term (current) use of insulin; Z79.52 Long term (current) use of systemic steroids; Z88.0 Allergy status to penicillin; Z88.1 Allergy status to other antibiotic agents; Z88.8 Allergy status to other drugs, medicaments and biological substances; Z87.891 Personal history of nicotine dependence

== ENCOUNTER → 2017-01-28 | Outpatient (REF) | payer MEDICARE ==
[~2017-01-28] MED LIST changes: +ASPI81TA7 PO; +FERR32TA PO; +FURO20TA2 PO; +PRESCAP PO; +XARE20TA PO
[2017-01-28 17:13] LABS: PERCENT SATURATION 64.2 % (13.2-37.4)
== END ==
LOC: M LAB REF 16:24
PROVIDERS: ATTEND Internal Medicine
DX: D64.9 Anemia, unspecified (principal)

== ENCOUNTER 2017-04-13 11:57 | Inpatient (IN) | payer MEDICARE ==
[~2017-04-13] VITALS: Ht 170.2 cm; Wt 81.1 kg
[~2017-04-13 11:57] MED LIST changes: -ACETAMINOPHEN 500 MG TAB As Ordered ONE; -ASCO25TA PO; -ASPI81TAEC PO; -ISOVUE-300 61% 50ML VIAL (Q9967) As Ordered ONE; -LIDOCAINE 1% SDV INJ 30 ML VIAL As Ordered ONE; -MIDAZOLAM INJ 2 MG/2 ML VIAL (J2250) As Ordered ONE; -MUPIROCIN 2% OINT 22 GM TUBE As Ordered ONE; -OSTETAB3 PO; -PROPOFOL 200 MG/20 ML VIAL As Ordered ONE; -VANCOMYCIN 1000 MG/20 ML VIAL (J3370) As Ordered ONE; -XARE15TA PO; -fentaNYL 100 MCG/2 ML INJECTION (J3010) As Ordered ONE
[2017-04-13 12:55] LABS: BASO % 0.2 % (0.0-1.0); EOS # 0.1 K/mm3 (0.0-0.50); EOS % 0.8 % (0.0-3.0); LARGE UNSTAINED CELL # 0.1 K/mm3 (0.0-0.4); LARGE UNSTAINED CELL % 0.7 % (0.0-4.0); LYMPH # 1.5 K/mm3 (1.5-4.5); LYMPH % 10.2 % (24.0-44.0); MEAN CORPUSCULAR HEMOGLOBIN 29.4 pg (27.0-33.0); MEAN CORPUSCULAR HGB CONC 31.5 g/dl (32.0-36.5); MEAN CORPUSCULAR VOLUME 93.1 fl (80.0-96.0); MONO # 0.5 K/mm3 (0.0-0.8); MONO % 3.9 % (0.0-5.0); NEUTROPHILS # 11.3 K/mm3 (1.8-7.7); NEUTROPHILS % 84.3 % (36.0-66.0); PLATELET COUNT, AUTOMATED 227 k/mm3 (150-450); RED CELL DISTRIBUTION WIDTH 16.9 % (11.5-14.5); WHITE BLOOD COUNT 13.4 K/mm3 (4.0-10.0)
[2017-04-13 13:01] LABS: INR 1.02
[2017-04-13 13:17] LABS: ALBUMIN/GLOBULIN RATIO 0.77 (1.00-1.93); ALKALINE PHOSPHATASE 100 U/L (45-117); ALT/SGPT 10 U/L (12-78); ANION GAP 10 MEQ/L (8-16); AST/SGOT 7 U/L (15-37); BILIRUBIN,DIRECT 0.1 MG/DL (0.0-0.2); BILIRUBIN,TOTAL 0.5 MG/DL (0.2-1.0); BLOOD UREA NITROGEN 33 MG/DL (7-18); CALCIUM LEVEL 10.7 MG/DL (8.8-10.2); CARBON DIOXIDE LEVEL 18 MEQ/L (21-32); CHLORIDE LEVEL 113 MEQ/L (98-107); CREATININE FOR GFR 1.69 MG/DL (0.55-1.02); FREE T4 1.06 NG/DL (0.76-1.46); GLOMERULAR FILTRATION RATE 31.1 (>39); GLUCOSE, FASTING 135 MG/DL (83-110); POTASSIUM SERUM 4.3 MEQ/L (3.5-5.1); SODIUM LEVEL 141 MEQ/L (136-145); TOTAL PROTEIN 6.9 GM/DL (6.4-8.2)
[2017-04-13 13:35] LABS: MAGNESIUM LEVEL 1.5 MG/DL (1.8-2.4); PHOSPHORUS LEVEL 3.4 MG/DL (2.5-4.9)
[2017-04-13] MEDS ORDERED: OSTETAB3 PO (14:36)
--- NOTE | 2017-04-13 14:39 | REP ---
PORTABLE CHEST: AP portable view of the chest is performed and compared to a prior study of 12/28/2016 as well as other prior exams. Bibasilar fibrotic change appears stable without evidence of acute infiltrate. The cardiac silhouette is mildly prominent. There is calcification of the thoracic aorta. The mediastinal silhouette is unchanged. IMPRESSION: Chronic changes appears stable with no evidence of acute infiltrate. Signed by Fady Galvin MD 04/13/2017 08:12 P
--- NOTE | 2017-04-13 14:44 | REP ---
BILATERAL LOWER EXTREMITY DUPLEX DOPPLER VENOUS ULTRASOUND: Real-time compression and duplex Doppler interrogation of bilateral lower extremity deep venous systems is performed. Bilaterally, the common femoral veins compress fully with transducer pressure, as do the right superficial femoral and popliteal veins, demonstrating normal internal flow with no intraluminal thrombus. However, there is partial thrombosis of the mid left superficial femoral vein extending through the left popliteal vein. IMPRESSION: Partial DVT mid left superficial femoral vein extending peripherally into the popliteal vein. Signed by Fady Galvin MD 04/13/2017 08:12 P
--- NOTE | 2017-04-13 14:54 | HPEPDOC ---
Medical History and Physical Date of Admission 04/13/17 History and Physical ATTENDING: PCP: Dr Wang CC: SOB HPI: 81-year-old female with past medical history of COPD not on home oxygen, hypertension, CAD, CHF, diabetes mellitus, DVT of the left lower extremity diagnosed in September of 2016 previously on Xarelto d/c 02/20 as per PCP after 6 months treatment, GERD, and gout presented to the ER with SOB. Pt states she has been feeling fatigued. Feels weak and unsteady and ambulating with a cane for past few days. Noticed HR 40s, sometimes 30s on her BP monitor, felt dizzy on/off, nausea in AM, decreased po intake for past 1 week. Reports feeling SOB past 2-3 days, clear sputum. Denies any fevers, chills, RILEY, CP, abdominal pain , or changes in bowel or bladder habits. Upon presentation to the hospital the patient was found to have DVT, thus the hospitalist team was consulted. PMHx: COPD. Dr Yanez Possible SELENE as per nocturnal oximetry HTN CAD CANNY CHF TTE 02/17 Diastolic Dysfunction, EF 70% DM H/O DVT GERD gout glaucoma. Dr Eller macular degeneration. Dr Mills PSHX: 1. Cardiac stent. 2. Subtotal colectomy. 3. Appendectomy. 4. Breast biopsy, right and left. 5. Cataract surgery, bilateral. 6. Cholecystectomy. 7. Hysterectomy. SOCHX: Resides in: [place], lives alone Marital Status: Tobacco use: quit 15 yr ago ETOH: occassional Illicit Drugs: Denies Recent travel: denies Advanced directives: Full code FAMHX: noncontributory ROS: As noted in HPI, otherwise 11pt ROS of systems reviewed and unremarkable. PE: GEN: 81yoF, appears stated age. Well-nourished, well developed. No acute distress. Alert and oriented x 3. Pleasant, interactive. HEENT: Normocephalic, atraumatic. Pupils are equal, round, and reactive to light. Extraocular movements are intact. No nystagmus appreciated. Sclera are nonicteric. Conjunctiva without injection. Nose midline. Nasal turbinates without bogginess. No facial asymmetry. Dry mucous membranes. Dentures. Pharynx dry appearing. Neck supple, trachea midline. No lymphadenopathy or thyromegaly appreciated. CHEST: Regular rate and rhythm, +S1, +S2 LUNGS: decreased BS bilaterally. Few exp wheezes, no rales, or rhonchi. Breathing appears symmetric and easy. Patient is speaking in full sentences. No accessory muscle use. ABD: Round, soft, non-tender, non-distended. +Bowel sounds throughout. No rebound or guarding. No costovertebral angle tenderness. EXT: No lower extremity edema appreciated. SKIN: [place], dry, warm. Capillary refill <2sec. No rashes. NEURO: Alert and oriented x 3. Cranial nerves III-XII are intact. No focal deficits appreciated. CXR: Chronic changes appears stable with no evidence of acute infiltrate u/s LE Partial DVT mid left superficial femoral vein extending peripherally into the popliteal vein. EKG: SB 54 bpm, second degree AVB, LAD, RBBB, LVH A&P: 81-year-old female with past medical history of COPD not on home oxygen, hypertension, CAD, CHF, diabetes mellitus, DVT of the left lower extremity diagnosed in September of 2016 previously on Xarelto d/c 02/20 as per PCP after 6 months treatment, GERD, and gout presented to the ER with SOB. Pt states she has been feeling fatigued. Feels weak and unsteady and ambulating with a cane for past few days. Noticed HR 40s, sometimes 30s on her BP monitor, felt dizzy on/off, nausea in AM, decreased po intake for past 1 week. Reports feeling SOB past 2-3 days, clear sputum. 1. The patient will be admitted to PCU for at least [address] Miller 's service. Pt is discussed with Dr Guzman. 2. LLE DVT. Plan to add Lovenox 1 mg/kg BID with plan to transition to po anticoagulation. On hold at this time as Pacemaker is planned tonight per cardiology. Consider Lovenox in AM if OK with Cardiology. 3. H/O DVT LLE 09/22. Off Xarelto since 02/20 as per PCP. 4. bradycardia/Second degree AVB/Abn EKG. HR trend 40s-50s in ED. Spoke with Dr Guerra in the ED and he reviewed EKGs. Permanent pacemaker implant planned this evening. 5. CHF, diastolic. TTE with DD, EF70%. Hold po Lasix for now related to poor po intake. Caution with IVF, IVF at 75cc/hr. 6. GUY. Appears dehydrated related to poor po intake over the past 1 week. Baseline 0.99, 1.34 currently. IVF at 75cc/hr. 7. COPD. Follows with Dr Yanez as outpt. Continue outpt Advair. Abbi added. 8. Chronic anemia. baseline apears to be 8, currently 10.8. Likely related to dehydration. monitor. Add Fe studies B12, folate. 9. IDDM. Hold Lantus. SSI Q6, Pt NPO currently. The patient is a Full code. Vital Signs Vital Signs Date Time Temp Pulse Resp B/P (MAP) Pulse Ox O2 Delivery O2 Flow Rate FiO2 04/13/17 14:38 52 150/66 (94) 97 04/13/17 11:58 98.3 16 Room Air Laboratory Data Labs 24H Laboratory Tests 2 04/13/17 12:40: White Blood Count 13.4H, Red Blood Count 3.69L, Hemoglobin 10.8L, Hematocrit 34.4L, Mean Corpuscular Volume 93.1, Mean Corpuscular Hemoglobin 29.4, Mean Corpuscular Hemoglobin Concent 31.5L, Red Cell Distribution Width 16.9H, Platelet Count 227, Neutrophils (%) (Auto) 84.3H, Lymphocytes (%) (Auto) 10.2L, Monocytes (%) (Auto) 3.9, Eosinophils (%) (Auto) 0.8, Basophils (%) (Auto) 0.2, Neutrophils # (Auto) 11.3H, Lymphocytes # (Auto) 1.5, Monocytes # (Auto) 0.5, Eosinophils # (Auto) 0.1, Basophils # (Auto) 0.0, Large Unclassified Cells % 0.7 , Large Unclassified Cells # 0.1, Prothrombin Time 13.5, Prothromb Time International Ratio 1.02, Activated Partial Thromboplast Time 23.6L, Anion Gap 10, Glomerular Filtration Rate 31.1L, Calcium Level 10.7H, Phosphorus Level 3.4 , Magnesium Level 1.5L, Aspartate Amino Transf (AST/SGOT) 7L, Alanine Aminotransferase (ALT/SGPT) 10L, Alkaline Phosphatase 100, Total Bilirubin 0.5, Direct Bilirubin 0.1, Total Creatine Kinase 32, Creatine Kinase MB 2.2, Creatine Kinase MB Relative Index 6.87H, Troponin I < 0.02, B-Type Natriuretic Peptide 258H, Total Protein 6.9, Albumin 3.0L, Albumin/Globulin Ratio 0.77L, Thyroid Stimulating Hormone (TSH) 1.050, Free Thyroxine 1.06 CBC/BMP Laboratory Tests 04/13/17 12:40 Red Blood Count 3.69 L, Mean Corpuscular Volume 93.1, Mean Corpuscular Hemoglobin 29.4, Mean Corpuscular Hemoglobin Concent 31.5 L, Red Cell Distribution Width 16.9 H, Neutrophils (%) (Auto) 84.3 H, Lymphocytes (%) (Auto ) 10.2 L, Monocytes (%) (Auto) 3.9, Eosinophils (%) (Auto) 0.8, Basophils (%) ( Auto) 0.2, Neutrophils # (Auto) 11.3 H, Lymphocytes # (Auto) 1.5, Monocytes # ( Auto) 0.5, Eosinophils # (Auto) 0.1, Basophils # (Auto) 0.0 Home Medications Scheduled (Os-Jamal Ultra 600 mg) 1 Tab Tab, 1 TAB PO DAILY (Preservision Areds) 1 Cap Cap, 1 CAP PO BID (Osteo Bi-Flex Regular Str 250-200 mg) 1 Tab Tab, 1 TAB PO DAILY Allopurinol (Allopurinol) 100 Mg Tab, 100 MG PO DAILY Aspirin (Aspirin) 81 Mg Tab, 81 MG PO DAILY Bimatoprost (Lumigan) 50 Drop/2.5 Ml Eleanor, 1 DROP OU QHS Brinzolamide (Azopt) 1 % Taya, 1 DROP OU BID Calcitriol (Rocaltrol) 0.25 Mcg Cap, 0.25 MCG PO DAILY Cholecalciferol (Vitamin D) 1,000 Unit Tab, 2,000 UNIT PO DAILY Furosemide (Furosemide) 20 Mg Tab, 20 MG PO DAILY Insulin Glargine (Lantus) 1 Units/0.01 Ml Susp, 8 UNITS SC QHS Carmichael 3 Polyunsat Fatty Acids (Carmichael 3 1000 mg) 1 Cap Cap, 1 CAP PO BID Omeprazole (Prilosec) 20 Mg Cap, 20 MG PO DAILY Potassium Chloride (Klor-Con M10) 10 Meq Tabcr, 10 MEQ PO BID Salmeterol/Fluticasone (Advair Diskus 250-50 Mcg/Dose) 14 Puff/Inhaler Aerp, 1 PUFF INH BID Scheduled PRN Albuterol Sulfate (Proair Hfa) 108 Mcg/Act Aer, 2 PUFFS INH Q4H PRN for SHORTNESS OF BREATH Nitroglycerin (Nitrostat) 0.4 Mg Subl, 0.4 MG SL NITRO PRN for CHEST PAIN Allergies Coded Allergies: Penicillins (Verified Allergy, Unknown, RASH WHEN YOUNG, 12/28/16) Pitavastatin (Verified Allergy, Unknown, 05/29/14) Quinolones (Verified Allergy, Unknown, CIPRO AND AVELOX, 12/07/12) Statins (Verified Allergy, Unknown, 05/29/14) Timolol (Verified Allergy, Unknown, 12/07/12) Silvia Barraza Apr 13, 2017 14:54 ELVIN GUZMAN MD Apr 14, 2017 12:18
[2017-04-13] MEDS ORDERED: METOCLOPRAMIDE INJ 10MG/2ML VIAL (J2765) IV PRN (15:15)
[2017-04-13] MEDS ORDERED: BISACODYL 10 MG SUPP PR PRN (15:15)
[2017-04-13] MEDS ORDERED: NS 1,000 ML IV SCH (15:27)
[2017-04-13] MEDS ORDERED: IPRATROPIUM 0.5MG/ALBUTEROL 2.5MG INH SOL UD 3ML (DUONEB)(J7620) NEB PRN (15:30)
[2017-04-13] MEDS ORDERED: GLUCAGON FOR INJ 1 MG VIAL (J1610) SC PRN (15:45)
[2017-04-13] MEDS ORDERED: DEXTROSE 50% 50 ML SYRINGE IV PRN (15:45)
[2017-04-13] MEDS ORDERED: GLUCOSE 4 GM CHEW TABLET PO PRN (15:45)
[2017-04-13] MEDS ORDERED: NS 250 ML IV ONE (16:15)
[2017-04-13] MEDS ORDERED: VANCOMYCIN HCL 1,000 MG, VIAL MATE ADAPTER 1 EACH in D5W 250 ML IV SCH (16:15)
[2017-04-13] MEDS ORDERED: LIDOCAINE 1% SDV INJ 30 ML VIAL XX ONE (17:24)
[2017-04-13] MEDS ORDERED: ISOVUE-300 61% 50ML VIAL (Q9967) XX ONE (17:27)
[2017-04-13] MEDS ORDERED: HumaLOG INSULIN (NovoLOG) PER UNIT SC SCH (18:00)
--- NOTE | 2017-04-13 19:18 | REP ---
C-ARM VIEW CHEST: A C-ARM view of the chest is performed during pace maker insertion. Two pace maker leads are seen, one in the region of the right atrium and the other in the region of the right ventricle. 7 minutes and 18 seconds of fluoroscopic time was utilized for this procedure. Signed by Fady Galvin MD 04/13/2017 08:15 P
[2017-04-13] MEDS ORDERED: fentaNYL 100 MCG/2 ML INJECTION (J3010) IV PRN (19:45)
[2017-04-13] MEDS ORDERED: LR 1,000 ML IV SCH (19:45)
--- NOTE | 2017-04-13 19:50 | RO ---
DATE OF PROCEDURE: 04/13/2017 PREOPERATIVE DIAGNOSIS: Symptomatic Mobitz type II second-degree atrioventricular (AV) block. POSTOPERATIVE DIAGNOSIS: Symptomatic Mobitz type II second-degree arterioventricular (AV) block. FINDINGS: Symptomatic Mobitz type II second-degree arterioventricular (AV) block. PROCEDURE: Implantation of a permanent dual-chamber pacemaker. SURGEON: Rainer Guerra MD STOGY ROLLER: None. ANESTHESIA: Lidocaine 1% local/monitored anesthetic care. No specimens. Estimated blood loss: Less than 50 mL. No blood products replaced. No drains. No complications. DESCRIPTION OF PROCEDURE: The patient was prepped and draped over the left pectoral region. 3M Ioban film was applied. Lidocaine 1% was used for local anesthetic. A left subclavian venogram was performed times two, each time using 15 mL consisting of three parts contrast, one part normal saline, injected via the left antecubital vein. This was used in real time to get into the extrathoracic portion of the left axillary vein with a micropuncture needle, which was then guidewire exchanged for a guidewire that came with the #8-Singaporean sheath. Next, an incision approximately 2-1/2 inches in length was made through the skin with a PEAK PlasmaBlade with the incision approximately parallel to the left clavicle and 1 cm below the skin entry site of the guidewire. The PEAK PlasmaBlade was then used to get through the fatty layer and through the fibrous Talya's fascia. The pacemaker pocket was then formed in a caudal direction using a combination of PEAK PlasmaBlade and blunt dissection using two fingers to separate the prepectoral fascia from the Talya's fascia. Next, the guidewire was pulled through the skin into the incision site. Next, another micropuncture needle was used to gain separate venous access more lateral to the first guidewire at the level of the pectoral muscle using the first guidewire as a fluoroscopic marker. This was then guidewire exchanged for the other guidewire that came with the other #8-Singaporean sheath. Next, a #8-Singaporean sheath was placed over the more lateral of the guidewires and advanced through the vein and was used for vein access for the ventricle lead. The ventricle lead was placed in the right ventricle somewhere close to the left ventricle apex and secured with a total of 10 turns. This position was found to be electrically and anatomically satisfactory and no diaphragm stimulation could be palpated on either side with 10 volts high output pacing. The #8-Singaporean sheath was then broken apart and removed and the ventricle lead was secured to the pectoral muscle with the supplied tie-down sleeve using #0 Ethibond suture with three separate sutures, one to each tie-down on the notch. This secured it to the pectoral muscle at three locations. Next, the other #8-Singaporean sheath was placed over the more medial of the guidewires and advanced into the vein and was used for vein access for the right atrial lead. The right atrial lead was difficult to position because the standard J that came with the lead kit was too large. I then switched to a smaller orange J-stylet and this was successful at getting into the right atrial appendage where the lead was secured with a total of 10 turns. This position was found to electrically and anatomically satisfactory after removal of the J stylet. The #8-Singaporean sheath was then broken apart and removed, and the atrial lead was then secured to the pectoral muscle with the supplied tie-down sleeve using three separate sutures consisting of #0 Ethibond. Next, another #0 Ethibond suture was placed through the pectoral muscle to serve as the tie-down for the pacemaker pulse generator. I took a medium size Jun [employer] TYRX antimicrobial sac and cut it into six pieces. These pieces were all then placed into the pacemaker pocket floor. Next, the excess lead material was coiled underneath the pacemaker pulse generator and placed along with the pacemaker pulse generator into the pacemaker pocket with the pacemaker on top and excess lead material below. The pacemaker pulse generator was then secured to the pectoral muscle with the previously placed #0 Ethibond suture. The deep layer was then closed using individual sutures consisting of #2-0 Vicryl. I then used a continuous running suture of #2-0 Vicryl to help approximate the more superficial layer. The skin was then closed using sandor. The patient tolerated the procedure well without any immediate complications. The pacemaker pulse generator implanted was a [employer] Assurity MRI, model [id number] with serial number [id number]. The right ventricle lead implanted was a [employer] Tendril MRI, model [id number], which was 58 cm. It had serial number [id number]. Final testing in the operating room for the right ventricle lead showed a capture threshold of 0.5 volts at 0.4 ms with R wave amplitude of 9.3 millivolts and a lead impedance of 749 ohms. The atrial lead implanted was a [employer] Tendril MRI, model [id number], which was 52 cm in length. It had serial number [id number]. Final testing in the operating room for the right atrial lead showed capture threshold of 0.7 volts at 0.4 ms with P wave amplitude of 4.5 millivolts and a lead impedance of 628 ohms.
[2017-04-13] MEDS: ACETAMINOPHEN 500 MG TAB PO PRN (19:58)
[2017-04-13] MEDS: IPRATROPIUM 0.5MG/ALBUTEROL 2.5MG INH SOL UD 3ML (DUONEB)(J7620) NEB SCH (20:00)
[2017-04-13] MEDS ORDERED: MAG SULF 1GM/100ML (MAG RUN) 1 GM in APPROPRIATE DILUENT 1 EA IV ONE (20:30)
[2017-04-13 21:00] VITALS: BP 92/54
[2017-04-13] MEDS: ADVAIR HFA 115/21MCG INHALER INH SCH (21:00)
[2017-04-13] MEDS: SENOKOT S TAB PO SCH ×2 (21:00→21:37)
[2017-04-13] MEDS: BRINZOLAMIDE 1 % OPHTH SUSP (AZOPT) 10ML OU SCH ×2 (21:00→23:26)
[2017-04-13 21:30] VITALS: BP 103/52
[2017-04-13] MEDS: ASCORBIC ACID 250 MG TAB PO SCH (21:37)
--- NOTE | 2017-04-13 21:49 | CR ---
DATE OF CONSULTATION: 04/13/2017 CARDIOLOGY CONSULTATION REFERRING PROVIDER: LEA Daniels REASON FOR CONSULTATION: Mobitz type II second degree atrioventricular (AV) block. 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 Patient reports a four month history of dizziness, weakness and fatigue. In the past one to two weeks, she has noticed her home blood pressure monitor would register low heart rate to the 40s and sometimes would show a low heart rate error, indicating heart rates less than 40. This morning, she had decreased oral intake and felt nauseous. In the past two weeks, there has been a few times where she has felt close to passing out. No syncope. No chest, neck, jaw, or upper extremity pain, pressure, tightness or heaviness with or without exertion. Patient reports exertional dyspnea with low levels of activity today. No syncope. No palpitations. No embolic events. No intermittent claudication. OTHER PAST MEDICAL AND SURGICAL HISTORY: 1. Coronary disease. 2. Coronary stent 05/2005. 3. Chronic diastolic heart failure. 4. Deep venous thrombosis (DVT) 2016. 5. Type 2 diabetes, on insulin. 6. Glaucoma. 7. Chronic obstructive pulmonary disease (COPD). 8. Status post appendectomy. 9. Status post cholecystectomy. 10. Prior vaginal hysterectomy. 11. Subtotal colectomy. SOCIAL HISTORY: A . 02/2017. Mother of two. Resident of [place]. 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 Consumes a serving size of tara daily. Prior smoking history of one to one and one-half packs a day for 50 years, which she quit October 2001. REVIEW OF SYSTEMS: Nausea this morning. Chronic, nonproductive cough. No anxiety, panic attacks or depression. Other review of systems questions as per history of present illness (HPI) as above. Other than that, a 10-point review of systems is otherwise negative. ADVERSE DRUG REACTIONS: PENICILLINS, ATORVASTATIN, QUINOLONES, STATINS, TIMOLOL. MEDICATIONS PRIOR TO ADMISSION: - albuterol two puffs every 4 hours as needed - allopurinol 100 mg daily - aspirin 81 mg daily - Lumigan one drop both eyes at bedtime - Azopt one drop both eyes twice a day - calcitriol 0.25 mcg by mouth daily - vitamin D 2000 units by mouth daily - furosemide 20 mg by mouth daily - Lantus insulin 8 units subcutaneously at bedtime - nitroglycerin 0.4 mg sublingual as needed - omega 3 1000 mg twice a day - omeprazole 20 mg daily - Os-Jamal 600 mg daily - Osteo Bi-Flex 250/200 mg one tablet daily - potassium chloride 10 mEq twice a day - PreserVision one capsule twice a day - Advair Diskus 250/50 mcg one inhalation twice a day PATIENT'S CURRENT MEDICATIONS IN HOSPITAL: As follows: - allopurinol 100 mg by mouth daily - omeprazole 20 mg by mouth daily - Senokot-S one twice a day - Azopt one drop twice a day - Advair HFA two puffs twice a day - DuoNebs 3 mL every 6 hours as needed - Ringer's lactate 70 mL per hour IV - Fentanyl 25 mcg every five minutes as needed - Humalog insulin every 6 hours subcutaneously per protocol - DuoNebs every 2 hours as needed - normal saline 75 mL per hour IV - acetaminophen 1000 mg every 6 hours as needed - Dulcolax 10 mg per rectum as needed daily - Reglan 10 mg IV every 6 hours as needed PHYSICAL EXAMINATION: Pleasant, overweight woman who appeared to be her chronologic age who was not in any respiratory or psychological distress. Height 67 inches, weight 73.4 kg, body mass index (BMI) 25.4. Blood pressure 136/65, pulse 56 (irregular). No conjunctival pallor or scleral icterus or xanthomas. Oral mucosa was moist and without pallor or cyanosis. Jugular venous pulsations were at 0 cm. Trachea midline. There was 1 cm edema over the left leg. 1 mm pitting edema over the right leg. Tenderness over the left calf. Oriented to person, place and time. Mood and affect normal. Curvature of the spine normal. Gait not appropriate to test at this time due to Mobitz type II second degree AV block. Gross motor strength and tone appear normal. No abnormal muscle atrophy, fasciculations, or tremors. Respiratory expansion effort was fair. No wheezes. No crackles. No dullness to percussion. First and second heart sounds were variable in intensity. Wide split of the second heart sound. No palpable apex beat. Carotids were normal in volume and contour without bruits. No palpable abdominal aorta. No abdominal bruits. Femoral pulses normal. Pedal pulses normal. Abdomen was soft, nontender with normal bowel sounds. No hepatosplenomegaly or organomegaly. They were difficult to assess due to abdominal obesity. Stool for occult blood not presently indicated. INVESTIGATIONS: I have independently visualized the patient's semi-upright portable AP chest acquired 04/13/2017 at 1:32 p.m. A tortuous thoracic aorta, suspicious for mild cardiomegaly, despite the portable technique. Enlargement of the left and right pulmonary arteries. No pulmonary vascular redistribution. No interstitial or alveolar edema. Suboptimal penetration (center penetrated) chest film technique. Bibasilar fibrotic changes without acute infiltrate. Calcification in the aortic arch. I have reviewed the patient's electrocardiogram from 04/13/2017 in the emergency room. It shows sinus rhythm with Mobitz type II second degree AV block and right bundle branch block with left anterior fascicular block. Laboratory work 04/13/2017 was reviewed: WBC 13.4, hemoglobin 10.8, hematocrit 34.4, platelets 227. PT/INR 1.02. Sodium 141, potassium 4.3, chloride 113, CO2 18, BUN 33, creatinine 1.69, estimated GFR 31.1, glucose 135, magnesium 1.5. CPK 32. Troponin-I less than 0.02. Brain natriuretic peptide (BNP) 258. Albumin 3.0, total protein 6.9. Thyroid stimulating hormone (TSH) 1.050. Free T4 normal at 1.06. ASSESSMENT AND RECOMMENDATIONS: 1. Mobitz type II second degree atrioventricular (AV) block. Patient is symptomatic with lightheadedness/dizziness and presyncope. She also has exertional dyspnea. She has associated right bundle branch block with left anterior fascicular block. She meets criteria for implantation of a permanent [employer] pacemaker. The alternative with no pacemaker placement are increase risk for sudden cardiac and this was explained to her. Risks of pacemaker implantation were explained to the patient and included, but not all inclusive, colon infection (1%), pneumothorax (1%), bleeding, poor wound healing, wound dehiscence, cardiac dysrhythmias, adverse drug reactions and cardiac perforation with cardiac tamponade (11/999). Patient was agreeable and signed the consent form. She will proceed to the operating room for implantation of permanent pacemaker today. 2. Right bundle branch block with left anterior fascicular block. Patient now has associated Mobitz type II second degree atrioventricular (AV) block. She will receive a permanent pacemaker today. 3. Coronary artery disease (CAD) without angina. Stable. 4. Status post right coronary artery stent. Stable. Resume aspirin. 5. Chronic diastolic hear failure. Appears to be at her functional dry weight. Compensated on examination. Resume furosemide and potassium chloride.
[2017-04-13 22:28] VITALS: BP 111/55
[2017-04-13] MEDS: LATANOPROST 0.005% OPHTH SOLN 2.5 ML OU SCH (23:26)
[2017-04-13 23:30] VITALS: BP 118/57
[2017-04-14 00:30] VITALS: BP 117/55
[2017-04-14] MEDS: IPRATROPIUM 0.5MG/ALBUTEROL 2.5MG INH SOL UD 3ML (DUONEB)(J7620) NEB SCH ×4 (01:40→19:11)
[2017-04-14 04:58] LABS: BASO % 0.2 % (0.0-1.0); EOS # 0.1 K/mm3 (0.0-0.50); EOS % 0.9 % (0.0-3.0); LARGE UNSTAINED CELL # 0.1 K/mm3 (0.0-0.4); LARGE UNSTAINED CELL % 1.3 % (0.0-4.0); LYMPH # 1.6 K/mm3 (1.5-4.5); LYMPH % 15.6 % (24.0-44.0); MEAN CORPUSCULAR VOLUME 93.7 fl (80.0-96.0); MONO # 0.5 K/mm3 (0.0-0.8); MONO % 5.9 % (0.0-5.0); NEUTROPHILS % 76.1 % (36.0-66.0); PLATELET COUNT, AUTOMATED 182 k/mm3 (150-450); WHITE BLOOD COUNT 9.2 K/mm3 (4.0-10.0)
[2017-04-14 05:24] LABS: ALBUMIN 2.4 GM/DL (3.2-5.2); ALBUMIN/GLOBULIN RATIO 0.75 (1.00-1.93); BILIRUBIN,TOTAL 0.3 MG/DL (0.2-1.0); CALCIUM LEVEL 9.9 MG/DL (8.8-10.2); CREATININE FOR GFR 1.82 MG/DL (0.55-1.02); GLOMERULAR FILTRATION RATE 28.5 (>39); POTASSIUM SERUM 4.9 MEQ/L (3.5-5.1); TOTAL PROTEIN 5.6 GM/DL (6.4-8.2)
[2017-04-14 05:58] VITALS: BP 130/60
[2017-04-14] MEDS: ACETAMINOPHEN 500 MG TAB PO PRN ×3 (06:19→21:45)
[2017-04-14] MEDS: ADVAIR HFA 115/21MCG INHALER INH SCH ×2 (07:32→19:08)
--- NOTE | 2017-04-14 07:33 | REP ---
Portable chest, 07:30 p.m.: Comparisons are 04/08/2016 and 04/13 2017 at 01:32 p.m.. Chronic bibasilar fibrotic changes are again noted. However, there are now superimposed interstitial infiltrates as an interval change. There has been interval placement of a dual chamber pacemaker from the left with the pacing tips in satisfactory locations in this single projection. Skin sandor are adjacent to the pacemaker pack. Cardiac size is normal. The rony, mediastinum, and bony thorax are unremarkable. There is no pneumothorax or pleural fluid collection. Signed by Fady Larsen MD 04/14/2017 07:24 A
[2017-04-14 08:00] VITALS: BP 111/57
[2017-04-14] MEDS ORDERED: LR 1,000 ML IV SCH ×2 (08:15→13:15)
[2017-04-14] MEDS: MAGNESIUM CHLORIDE 64 MG TABCR (SLO MAG) PO SCH (09:00)
[2017-04-14] MEDS: SENOKOT S TAB PO SCH ×3 (09:00→21:41)
[2017-04-14] MEDS: OMEPRAZOLE 20 MG CAP PO SCH (09:11)
[2017-04-14] MEDS: ASCORBIC ACID 250 MG TAB PO SCH ×2 (09:11→21:42)
[2017-04-14] MEDS: ALLOPURINOL 100 MG TAB PO SCH (09:11)
[2017-04-14] MEDS: ASPIRIN 81 MG ENTERIC TAB PO SCH (09:11)
[2017-04-14] MEDS: HumaLOG INSULIN (NovoLOG) PER UNIT SC SCH ×4 (09:14→21:00)
[2017-04-14 12:00] VITALS: BP 138/62
[2017-04-14] MEDS: BRINZOLAMIDE 1 % OPHTH SUSP (AZOPT) 10ML OU SCH ×2 (12:23→21:45)
--- NOTE | 2017-04-14 14:14 | IPN ---
DATE: 04/14/2017 SUBJECTIVE: This morning the patient tells me that she feels tired. She tells me that she got up to use the restroom but was only able to get to the bedside commode and even then felt wobbly on her feet. She does have pain in her left upper extremity with any movement. She denies lightheadedness, dizziness, chest pain, shortness of breath, fevers or chills. OBJECTIVE: VITAL SIGNS: Temperature is 97, pulse 68, respiratory rate 18, blood pressure 111/57, oxygen saturation 96% on 2 liters. GENERAL : She is a pleasant elderly, female laying in bed accompanied by her daughter. The patient does not appear to be in any acute distress. HEENT: Cranial nerves II through XII are grossly intact. She has mildly dry mucous membranes. No elevation of CVP. CARDIOVASCULAR EXAM: S1, S2 regular. RESPIRATORY EXAM: Clear. ABDOMINAL EXAM: Grossly obese. Bowel sounds are present. The abdomen is soft. EXTREMITIES: No clubbing, cyanosis, or edema. Her dressing over her left thorax is clean, dry and intact. She is wearing a sling. LABORATORY STUDIES: WBC 9.2, down from 30.4, hemoglobin 9.5, hematocrit 29.5, platelets count 182. Chemistry panel: Sodium 146, potassium 4.9, chloride 117, bicarb 20, BUN 35, creatinine 1.8 up from 1.6. She has multiple sets of cardiac enzymes, which are negative. TSH within normal limits. INR 1.0. IMAGING: She had a duplex ultrasound of the lower extremities that revealed popliteal DVT in the mid left superficial femoral vein, extending to the popliteal vein. She had a chest x-ray this morning that revealed no pneumothorax or pleural fluid collection. ASSESSMENT/PLAN: This is a 81-year-old female with Mobitz type 2 heart block, left lower extremity deep vein thrombosis (DVT), and acute kidney injury. PROBLEMS: 1. Mobitz type [address] heart block. Dr. Guerra's help is greatly appreciated. Patient was symptomatic and status post [facility] pacer. She tolerated the procedure well. Chest x-ray is unrevealing for any significant abnormality. Will defer to Dr. Guerra when he feels as though the patient is clear from his cardiac standpoint. The patient has coronary artery disease without any anginal symptoms. She has been resumed on aspirin. She is not on a statin or beta-april. I will defer to her master control technician. 2. Diastolic congestive heart failure (CHF). The patient is at a dry weight, in fact she has actually had soft blood pressures. Her diuretic currently on hold. She is certainly not hypertensive. 3. Acute kidney injury. Likely related to overdiuresis and possibly prerenal azotemia in the setting of heart block and symptomatic bradycardia. Provide her gentle fluids with Lactated Ringer's. Her BUN/creatinine ratio is greater than 20:1. Her GFR appears to be significantly elevated than what her baseline is at this time. Will continue to hold her diuretics. 4. Left lower extremity DVT. She completed course of anticoagulation with Xarelto, however, duplex this visit once again demonstrates persistent clot in the left lower extremity. I will restart her on Xarelto and suspect that she would benefit from prolonged anticoagulation and close followup with her primary care physician. 5. COPD. The patient does not have any oxygen requirement at this time. She is on AdvEstefania cunningham. 6. Diabetes. The patient is sliding scale insulin. 7. Glaucoma. The patient is on Xalatan and Azopt. 8. Gastroesophageal reflux disease (GERD). The patient is on omeprazole. 9. Gout. The patient is on allopurinol. 10. Deep vein thrombosis (DVT) prophylaxis. The patient has been started on Xarelto. Patient and family services (PFS) consult placed to obtain prior authorization. DISPOSITION: Patient is at her functional baseline. She needs to climb 14 stairs at home in order to use the restroom. PT consult has been placed. QUAN
[2017-04-14 16:00] VITALS: BP 138/62
--- NOTE | 2017-04-14 16:06 | REP ---
CHEST, TWO VIEWS: Two views of the chest are performed and compared to prior study of 04/13/2017. Left dual lead pacemaker appears to be in good position. There is no pneumothorax. There is mild bibasilar atelectasis/infiltrate. Cardiac silhouette is mildly prominent. There is calcification of the thoracic aorta. The mediastinal silhouette is unchanged. IMPRESSION: Left dual lead pacemaker. No pneumothorax. Mild bibasilar atelectasis/infiltrate. Signed by Fady aGlvin MD 04/15/2017 01:26 P
[2017-04-14 20:00] VITALS: BP 124/68
--- NOTE | 2017-04-14 20:07 | ECGEPIP ---
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
[2017-04-14] MEDS: RIVAROXABAN 15 MG TAB (XARELTO) PO SCH (21:42)
[2017-04-14] MEDS: LATANOPROST 0.005% OPHTH SOLN 2.5 ML OU SCH (21:45)
--- NOTE | 2017-04-14 22:49 | ECGEPIP ---
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
[2017-04-15] VITALS: BP 115/66
[2017-04-15] MEDS: IPRATROPIUM 0.5MG/ALBUTEROL 2.5MG INH SOL UD 3ML (DUONEB)(J7620) NEB SCH ×4 (01:43→20:00)
[2017-04-15 04:05] VITALS: BP 106/54
[2017-04-15 06:40] LABS: BASO % 0.4 % (0.0-1.0); EOS # 0.2 K/mm3 (0.0-0.50); EOS % 1.8 % (0.0-3.0); LARGE UNSTAINED CELL # 0.1 K/mm3 (0.0-0.4); LARGE UNSTAINED CELL % 1.3 % (0.0-4.0); LYMPH % 22.8 % (24.0-44.0); MEAN CORPUSCULAR HEMOGLOBIN 30.1 pg (27.0-33.0); MEAN CORPUSCULAR HGB CONC 32.1 g/dl (32.0-36.5); MEAN CORPUSCULAR VOLUME 93.7 fl (80.0-96.0); MONO # 0.5 K/mm3 (0.0-0.8); MONO % 5.9 % (0.0-5.0); NEUTROPHILS # 5.5 K/mm3 (1.8-7.7); NEUTROPHILS % 67.8 % (36.0-66.0); PLATELET COUNT, AUTOMATED 181 k/mm3 (150-450); WHITE BLOOD COUNT 8.1 K/mm3 (4.0-10.0)
[2017-04-15 06:56] LABS: ALBUMIN 2.3 GM/DL (3.2-5.2); ALBUMIN/GLOBULIN RATIO 0.92 (1.00-1.93); BILIRUBIN,TOTAL 0.2 MG/DL (0.2-1.0); CREATININE FOR GFR 1.66 MG/DL (0.55-1.02); GLOMERULAR FILTRATION RATE 31.7 (>39); MAGNESIUM LEVEL 1.8 MG/DL (1.8-2.4); POTASSIUM SERUM 4.1 MEQ/L (3.5-5.1); TOTAL PROTEIN 4.8 GM/DL (6.4-8.2)
[2017-04-15] MEDS ORDERED: XARE15TA PO (07:03)
[2017-04-15] MEDS: RIVAROXABAN 15 MG TAB (XARELTO) PO SCH ×2 (07:47→18:16)
[2017-04-15] MEDS: HumaLOG INSULIN (NovoLOG) PER UNIT SC SCH ×4 (07:48→21:00)
[2017-04-15] MEDS: MAGNESIUM CHLORIDE 64 MG TABCR (SLO MAG) PO SCH (07:59)
[2017-04-15] MEDS: SENOKOT S TAB PO SCH ×2 (07:59→21:00)
[2017-04-15 08:00] VITALS: BP 159/71
[2017-04-15] MEDS: OMEPRAZOLE 20 MG CAP PO SCH (08:46)
[2017-04-15] MEDS: ALLOPURINOL 100 MG TAB PO SCH (08:46)
[2017-04-15] MEDS: ASCORBIC ACID 250 MG TAB PO SCH ×2 (08:47→22:20)
[2017-04-15] MEDS: BRINZOLAMIDE 1 % OPHTH SUSP (AZOPT) 10ML OU SCH ×2 (08:47→22:20)
[2017-04-15] MEDS: ASPIRIN 81 MG ENTERIC TAB PO SCH (08:47)
[2017-04-15] MEDS: ACETAMINOPHEN 500 MG TAB PO PRN ×2 (08:52→22:24)
[2017-04-15] MEDS: ADVAIR HFA 115/21MCG INHALER INH SCH ×2 (09:57→20:23)
--- NOTE | 2017-04-15 13:45 | IPN ---
DATE: 04/15/2017 SUBJECTIVE: The patient tells me that she is feeling better today. She has better mobility of her left arm now that it is no longer in the sling. She tells me that she is up and moving around slightly better. She was able to get to the bathroom and back as opposed to using the commode as she was on the previous day. She denies chest pain, fevers, chills, nausea, vomiting, or diarrhea. OBJECTIVE: VITAL SIGNS: Temperature is 97.6, pulse 96, respiratory rate 18, blood pressure 159/71, oxygen saturation 93% on room air. GENERAL: She is a pleasant elderly, obese female sitting in her chair. She is accompanied by her daughter. The patient does not appear to be in any acute distress. HEENT: Cranial nerves II through XII are grossly intact. She has moist mucous membranes. No elevation of CVP. CARDIOVASCULAR EXAM: S1, S2 appears regular. She has her pacemaker dressing site, which is clean, dry and intact. Decreased range of motion in the left upper extremity secondary to pain. ABDOMINAL EXAM: Obese. Bowel sounds are present. The abdomen is soft. EXTREMITIES: No clubbing, cyanosis, or edema. LABORATORY STUDIES: WBC 8.1, hemoglobin 9.0, platelet count 181. Chemistry panel: Sodium 144, potassium 4.1, chloride 117, bicarb 17, anion gap 10, BUN 36, creatinine 1.6 down from 1.8. Multiple sets of cardiac enzymes are negative. TSH within normal limits. No new imaging. ASSESSMENT/PLAN: This is a 81-year-old female with Mobitz type 2 heart block and left lower extremity deep vein thrombosis (DVT) with acute kidney injury. PROBLEMS: 1. Mobitz type 2 second degree heart block. Dr. Guerra's help is greatly appreciated. Patient is status post permanent pacemaker placement with a [employer] pacer. She has been taken out of her left arm sling. She is to have a scheduled pacemaker incision check in Dr. Guerra's office in 7-10 days and in four weeks. She is to keep her pacemaker incision site dry until 24 hours after her sandor have been removed. She is not to drive for one week. She is also instructed to take vitamin C twice a day for 30 days. 2. Coronary artery disease without anginal symptoms. She has been resumed on aspirin. She is not on a statin or a beta-april. Will defer to her melt room operator. 3. Diastolic congestive heart failure (CHF). She appears to be euvolemic today. She is certainly not hypovolemic or hypertensive. 4. Acute kidney injury. Possibly related to overdiuresis and prerenal azotemia. She does have some non anion gap metabolic acidosis related to hyperchloremia. We will avoid any hyperchloremic IV infusions. We will simply monitor her renal functions at this time. She appears to be improving. 5. Left lower extremity DVT. She is on Xarelto previously and completed a course of it. It appears as though the DVT has not completely resolved. I have resumed her on Xarelto and sent a script for prior authorization to be obtained. She can followup with primary care provider regarding this for her duration of therapy. 6. COPD. No oxygen requirement at her baseline. She is on Advair and DuoNebs. 7. Diabetes. The patient is sliding scale insulin. 8. Glaucoma. The patient is on Xalatan and Azopt. 9. Gastroesophageal reflux disease (GERD). The patient is on omeprazole. 10. Gout. The patient is on allopurinol. 11. Deep vein thrombosis (DVT) prophylaxis. As outline above, she is on Xarelto. DISPOSITION: Pending physical therapy clearance. I suspect she may be able to be discharged within the next 48-72 hours.
[2017-04-15 16:00] VITALS: BP 127/60
[2017-04-15 16:20] VITALS: BP 144/70
[2017-04-15 22:00] VITALS: BP 126/59
[2017-04-15] MEDS: LATANOPROST 0.005% OPHTH SOLN 2.5 ML OU SCH (22:20)
[2017-04-16] MEDS: IPRATROPIUM 0.5MG/ALBUTEROL 2.5MG INH SOL UD 3ML (DUONEB)(J7620) NEB SCH ×4 (01:27→20:00)
[2017-04-16 06:00] VITALS: BP 125/72
[2017-04-16 07:05] LABS: BASO % 0.4 % (0.0-1.0); EOS # 0.1 K/mm3 (0.0-0.50); EOS % 1.4 % (0.0-3.0); LARGE UNSTAINED CELL # 0.1 K/mm3 (0.0-0.4); LARGE UNSTAINED CELL % 1.6 % (0.0-4.0); LYMPH # 2.2 K/mm3 (1.5-4.5); LYMPH % 29.6 % (24.0-44.0); MEAN CORPUSCULAR HEMOGLOBIN 29.5 pg (27.0-33.0); MEAN CORPUSCULAR HGB CONC 31.6 g/dl (32.0-36.5); MEAN CORPUSCULAR VOLUME 93.4 fl (80.0-96.0); MONO # 0.4 K/mm3 (0.0-0.8); MONO % 5.6 % (0.0-5.0); NEUTROPHILS # 4.3 K/mm3 (1.8-7.7); NEUTROPHILS % 61.3 % (36.0-66.0); PLATELET COUNT, AUTOMATED 193 k/mm3 (150-450); RED CELL DISTRIBUTION WIDTH 17.3 % (11.5-14.5)
[2017-04-16 07:21] LABS: ALBUMIN 2.3 GM/DL (3.2-5.2); ALBUMIN/GLOBULIN RATIO 0.7 (1.00-1.93); BILIRUBIN,TOTAL 0.3 MG/DL (0.2-1.0); CALCIUM LEVEL 9.2 MG/DL (8.8-10.2); CREATININE FOR GFR 1.51 MG/DL (0.55-1.02); GLOMERULAR FILTRATION RATE 35.4 (>39); MAGNESIUM LEVEL 1.7 MG/DL (1.8-2.4); POTASSIUM SERUM 3.8 MEQ/L (3.5-5.1); TOTAL PROTEIN 5.6 GM/DL (6.4-8.2)
[2017-04-16] MEDS: ADVAIR HFA 115/21MCG INHALER INH SCH ×2 (08:03→20:28)
[2017-04-16] MEDS: HumaLOG INSULIN (NovoLOG) PER UNIT SC SCH ×4 (08:27→21:14)
[2017-04-16] MEDS: OMEPRAZOLE 20 MG CAP PO SCH (08:28)
[2017-04-16] MEDS: MAGNESIUM CHLORIDE 64 MG TABCR (SLO MAG) PO SCH (08:28)
[2017-04-16] MEDS: ALLOPURINOL 100 MG TAB PO SCH (08:28)
[2017-04-16] MEDS: ASCORBIC ACID 250 MG TAB PO SCH ×2 (08:28→21:17)
[2017-04-16] MEDS: ASPIRIN 81 MG ENTERIC TAB PO SCH (08:28)
[2017-04-16] MEDS: SENOKOT S TAB PO SCH ×2 (08:28→21:17)
[2017-04-16] MEDS: RIVAROXABAN 15 MG TAB (XARELTO) PO SCH ×2 (08:28→17:31)
[2017-04-16] MEDS: BRINZOLAMIDE 1 % OPHTH SUSP (AZOPT) 10ML OU SCH ×2 (08:29→21:18)
[2017-04-16] MEDS: ACETAMINOPHEN 500 MG TAB PO PRN ×2 (10:52→21:18)
[2017-04-16] MEDS ORDERED: MAG SULF 1GM/100ML (MAG RUN) 1 GM in APPROPRIATE DILUENT 1 EA IV ONE (14:00)
--- NOTE | 2017-04-16 14:45 | IPN ---
DATE: 04/16/2017 SUBJECTIVE: The patient tells me that she is feeling better. She tells me that she feels a little bit strong. She is able to get up and walk around better, but does not feel as though she could complete stairs. She denies chest pain, shortness of breath, fevers, chills, nausea, vomiting, or diarrhea. OBJECTIVE: VITAL SIGNS: Temperature is 98.1, pulse 80, respiratory rate 18, blood pressure 125/72, oxygen saturation 97% on room air. GENERAL: She is a frail, elderly, obese female lying flat in bed in no distress. HEENT: Cranial nerves II through XII are grossly intact. She has moist mucous membranes. CARDIOVASCULAR EXAM: S1, S2 regular. She has her pacemaker dressing site, which is clean, dry and intact. RESPIRATORY EXAM: Clear. ABDOMINAL EXAM: Obese. Bowel sounds are present. The abdomen is soft. EXTREMITIES: No clubbing, cyanosis, or edema. LABORATORY STUDIES: WBC 7.0, hemoglobin 8.8, platelet count 193. Chemistry panel: Sodium 143, potassium 3.8, chloride 115, bicarb 16, BUN 35, creatinine 1.5, magnesium 1.7. No new imaging. ASSESSMENT/PLAN: This is a 81-year-old female with Mobitz type 2 heart block and left lower extremity deep vein thrombosis (DVT) with acute kidney injury. PROBLEMS: 1. Mobitz type 2 second degree heart block. Dr. Guerra's help is appreciated. She is status post permanent pacemaker placement with a [employer]. She has a pacemaker check scheduled at Dr. Guerra's office in 7-10 days and is to keep the incision site dry until 24 hours after her sandor have been removed. No driving for one week. She is instructed to take vitamin C as per Dr. Guerra. 2. Coronary artery disease, stable. She has been resumed on aspirin. She is not on a statin or a beta-april. Will defer to her fur examiner. 3. Diastolic congestive heart failure (CHF). She is euvolemic. Her blood pressure is well controlled without any antihypertensives at this time. 4. Acute kidney injury. Possibly related to overdiuresis. She is improving. She did receive some gentle IV fluids. Will simply continue to monitor. 5. 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 6. Left lower extremity DVT. She previously completed six months of Xarelto, however the clot remains there. At this time, we will restart her on Xarelto. A patient and family services (PFS) consult was placed to help with prior authorization being obtained. She will followup with her primary care provider regarding duration of therapy. She may benefit from lifelong therapy. 7. COPD. No oxygen requirement at her baseline. She is on Advair and DuoNebs. 8. Diabetes. The patient is sliding scale insulin. 9. Glaucoma. The patient is on Xalatan and Azopt. 10. Gastroesophageal reflux disease (GERD). The patient is on omeprazole. 11. Gout. She is on allopurinol. 12. Deep vein thrombosis (DVT) prophylaxis. She is on Xarelto. DISPOSITION: Pending physical therapy clearance, which was ordered yesterday. Awaiting recommendations from their evaluation today.
[2017-04-16] MEDS: LATANOPROST 0.005% OPHTH SOLN 2.5 ML OU SCH (21:19)
[2017-04-16 22:00] VITALS: BP 120/62
[2017-04-17] MEDS: IPRATROPIUM 0.5MG/ALBUTEROL 2.5MG INH SOL UD 3ML (DUONEB)(J7620) NEB SCH ×4 (01:25→20:00)
[2017-04-17 06:00] VITALS: BP 116/58
[2017-04-17 06:35] LABS: BASO % 0.4 % (0.0-1.0); EOS # 0.1 K/mm3 (0.0-0.50); LARGE UNSTAINED CELL # 0.1 K/mm3 (0.0-0.4); LARGE UNSTAINED CELL % 1.4 % (0.0-4.0); LYMPH # 1.9 K/mm3 (1.5-4.5); LYMPH % 34.5 % (24.0-44.0); MEAN CORPUSCULAR HEMOGLOBIN 29.4 pg (27.0-33.0); MEAN CORPUSCULAR HGB CONC 31.2 g/dl (32.0-36.5); MEAN CORPUSCULAR VOLUME 94.2 fl (80.0-96.0); MONO # 0.4 K/mm3 (0.0-0.8); MONO % 6.6 % (0.0-5.0); NEUTROPHILS % 55.1 % (36.0-66.0); PLATELET COUNT, AUTOMATED 215 k/mm3 (150-450); RED CELL DISTRIBUTION WIDTH 17.1 % (11.5-14.5); WHITE BLOOD COUNT 5.4 K/mm3 (4.0-10.0)
[2017-04-17 07:01] LABS: ALBUMIN 2.2 GM/DL (3.2-5.2); ALBUMIN/GLOBULIN RATIO 0.69 (1.00-1.93); BILIRUBIN,TOTAL 0.2 MG/DL (0.2-1.0); CALCIUM LEVEL 9.1 MG/DL (8.8-10.2); CREATININE FOR GFR 1.38 MG/DL (0.55-1.02); GLOMERULAR FILTRATION RATE 39.3 (>39); POTASSIUM SERUM 3.9 MEQ/L (3.5-5.1); TOTAL PROTEIN 5.4 GM/DL (6.4-8.2)
[2017-04-17] MEDS: ADVAIR HFA 115/21MCG INHALER INH SCH ×2 (07:17→20:18)
[2017-04-17 09:00] VITALS: BP 142/64
[2017-04-17] MEDS: HumaLOG INSULIN (NovoLOG) PER UNIT SC SCH ×4 (09:31→21:00)
[2017-04-17] MEDS: RIVAROXABAN 15 MG TAB (XARELTO) PO SCH ×2 (10:10→17:21)
[2017-04-17] MEDS: OMEPRAZOLE 20 MG CAP PO SCH (10:10)
[2017-04-17] MEDS: ALLOPURINOL 100 MG TAB PO SCH (10:11)
[2017-04-17] MEDS: MAGNESIUM CHLORIDE 64 MG TABCR (SLO MAG) PO SCH (10:11)
[2017-04-17] MEDS: ASPIRIN 81 MG ENTERIC TAB PO SCH (10:11)
[2017-04-17] MEDS: SENOKOT S TAB PO SCH ×2 (10:11→21:06)
[2017-04-17] MEDS: BRINZOLAMIDE 1 % OPHTH SUSP (AZOPT) 10ML OU SCH ×2 (10:11→21:05)
[2017-04-17] MEDS: ASCORBIC ACID 250 MG TAB PO SCH ×2 (10:11→21:06)
--- NOTE | 2017-04-17 13:13 | IPN ---
DATE: 04/17/2017 SUBJECTIVE: The patient tells me she is feeling quite well today. She does not complain of any fevers, chills, nausea, vomiting or diarrhea. She tells me that she is feeling stronger, and she is up and ambulating better than she has on previous days. OBJECTIVE: VITAL SIGNS: Temperature 98.1, pulse 88, respiratory rate 16, blood pressure 142/64, oxygen saturation 95% on room air. GENERAL: She is a very pleasant, elderly, obese, female sitting on the edge of her bed eating breakfast. She does not appear to be in any acute distress. HEENT: Cranial nerves II-XII are grossly intact. She has no elevation in her CVP. CARDIOVASCULAR EXAM: S1, S2, regular. RESPIRATORY EXAM: Clear. Dressing is clean, dry and intact. ABDOMINAL EXAM: Grossly obese. EXTREMITIES: There is no clubbing, cyanosis or edema. LABORATORY STUDIES: WBC 5.4, hemoglobin 8.4, platelet count 215. Chemistry panel: Sodium 143, potassium 3.9, chloride 116, bicarbonate 17, BUN 34, creatinine 1.3, continues to trend downward. No new imaging. ASSESSMENT AND PLAN: This is a 81-year-old female with Mobitz type II heart block and left lower extremity deep vein thrombosis (DVT) with acute kidney injury. Problems: 1. Mobitz type II, secondary heart block. Dr. Guerra's help is appreciated. Status post permanent pacemaker placement. Followup has been arranged with Dr. Guerra's office. She was on vitamin C as per Dr. Guerra. 2. Coronary artery disease. Stable. She has been restarted on her aspirin. She is not on a statin or a beta april. Will defer to her hitcher. 3. Diastolic congestive heart failure, euvolemic. Blood pressure is controlled without any antihypertensives at this time. 4. Acute kidney injury, possibly related to diarrhea. She is improving. She did have some gentle IV fluids provided to her earlier during her stay and her diuretics are on hold. 5. 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 6. Left lower extremity deep vein thrombosis (DVT). She had previously completed 6 months of Xarelto. However, she does maintain a clot there for which she has been restarted on Xarelto. Patient and family services (PFS) has been consulted to help with prior authorization being obtained. She will followup with her primary care provider (PCP) regarding duration of therapy. She may benefit from life-long therapy. 7. Chronic obstructive pulmonary disease (COPD). No oxygen (O2) requirement at her baseline. She is on Advair and DuoNebs. 8. Diabetes. She is on sliding scale insulin. 9. Glaucoma. She is on Xalatan and Azopt. 10. Gastroesophageal reflux disease. She is on omeprazole. 11. Gout. She is on allopurinol. 12. DVT prophylaxis. She is on Xarelto. DISPOSITION: Pending physical therapy clearance. Will reevaluate her on Wednesday. If she is not cleared at that point, I would recommend seeking subacute rehabilitation placement.
[2017-04-17 13:30] VITALS: BP 140/65
[2017-04-17] MEDS: LATANOPROST 0.005% OPHTH SOLN 2.5 ML OU SCH (21:05)
[2017-04-17] MEDS: ACETAMINOPHEN 500 MG TAB PO PRN (21:06)
[2017-04-17 22:00] VITALS: BP 124/62
[2017-04-18] MEDS: IPRATROPIUM 0.5MG/ALBUTEROL 2.5MG INH SOL UD 3ML (DUONEB)(J7620) NEB SCH ×4 (01:23→19:13)
[2017-04-18 05:50] LABS: BASO % 0.5 % (0.0-1.0); EOS # 0.2 K/mm3 (0.0-0.50); EOS % 3.3 % (0.0-3.0); LARGE UNSTAINED CELL # 0.1 K/mm3 (0.0-0.4); LARGE UNSTAINED CELL % 2.1 % (0.0-4.0); LYMPH # 2.4 K/mm3 (1.5-4.5); LYMPH % 42.8 % (24.0-44.0); MEAN CORPUSCULAR HGB CONC 31.3 g/dl (32.0-36.5); MEAN CORPUSCULAR VOLUME 95.7 fl (80.0-96.0); MONO # 0.4 K/mm3 (0.0-0.8); MONO % 6.8 % (0.0-5.0); NEUTROPHILS # 2.4 K/mm3 (1.8-7.7); NEUTROPHILS % 44.5 % (36.0-66.0); PLATELET COUNT, AUTOMATED 231 k/mm3 (150-450); RED CELL DISTRIBUTION WIDTH 17.3 % (11.5-14.5); WHITE BLOOD COUNT 5.4 K/mm3 (4.0-10.0)
[2017-04-18 06:00] VITALS: BP 149/71
[2017-04-18 06:08] LABS: ALBUMIN 2.4 GM/DL (3.2-5.2); ALBUMIN/GLOBULIN RATIO 0.71 (1.00-1.93); BILIRUBIN,TOTAL 0.2 MG/DL (0.2-1.0); CALCIUM LEVEL 8.5 MG/DL (8.8-10.2); CREATININE FOR GFR 1.3 MG/DL (0.55-1.02); GLOMERULAR FILTRATION RATE 42.1 (>39); POTASSIUM SERUM 3.9 MEQ/L (3.5-5.1); TOTAL PROTEIN 5.8 GM/DL (6.4-8.2)
[2017-04-18] MEDS: ADVAIR HFA 115/21MCG INHALER INH SCH ×2 (07:13→21:00)
[2017-04-18] MEDS: MAGNESIUM CHLORIDE 64 MG TABCR (SLO MAG) PO SCH (09:00)
[2017-04-18] MEDS: RIVAROXABAN 15 MG TAB (XARELTO) PO SCH ×2 (09:38→18:27)
[2017-04-18] MEDS: ASCORBIC ACID 250 MG TAB PO SCH ×2 (09:38→20:57)
[2017-04-18] MEDS: ALLOPURINOL 100 MG TAB PO SCH (09:38)
[2017-04-18] MEDS: SENOKOT S TAB PO SCH ×2 (09:38→20:59)
[2017-04-18] MEDS: OMEPRAZOLE 20 MG CAP PO SCH (09:39)
[2017-04-18] MEDS: ASPIRIN 81 MG ENTERIC TAB PO SCH (09:39)
[2017-04-18] MEDS: BRINZOLAMIDE 1 % OPHTH SUSP (AZOPT) 10ML OU SCH ×2 (09:39→18:29)
[2017-04-18] MEDS: HumaLOG INSULIN (NovoLOG) PER UNIT SC SCH ×4 (09:40→20:54)
--- NOTE | 2017-04-18 10:26 | IPN ---
DATE: 04/18/2017 SUBJECTIVE: The patient reports she is feeling well. She has no complaints. She denies any chest pain, shortness of breath, fevers, chills, nausea, vomiting, or diarrhea. OBJECTIVE: VITAL SIGNS: Temperature 97.8, pulse 93, respiratory rate 18, blood pressure 149/71, oxygen saturation 97% on room air. GENERAL: She is a very pleasant, elderly, female sitting up in bed. No distress. HEENT: Cranial nerves II-XII are grossly intact. No elevation of central venous pressure. Dressing is clean, dry and intact. CARDIOVASCULAR EXAM: S1, S2, regular. RESPIRATORY EXAM: Clear. EXTREMITIES: There is no clubbing, cyanosis or edema. LABORATORY STUDIES: WBC 5.4, hemoglobin 9.3, platelet count 231. Chemistry panel: Sodium 146, potassium 3.9, chloride 119, bicarbonate 16, BUN 30, creatinine 1.3, continues to trend downward. No new imaging. ASSESSMENT AND PLAN: This is a 81-year-old female with Mobitz type II heart block and left lower extremity deep vein thrombosis (DVT) with some mild acute kidney injury. Problems: 1. Mobitz type II heart block. Dr. Guerra's help is appreciated. Status post permanent pacemaker placement. Followup with Dr. Guerra's office. She was on vitamin C as per Dr. Guerra. 2. Coronary artery disease. Stable. She has been restarted on her aspirin. She is not on a statin or a beta april. Will defer to Dr. Guerra. 3. Diastolic congestive heart failure. She is euvolemic. Blood pressure is controlled without any antihypertensives. She is not on any diuretics at this time. 4. Acute kidney injury, possibly related to over diuresis. Her diuretics have been on hold while hospitalized. She did receive some gentle IV fluids. Her renal function is returning to baseline. 5. 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 6. Left lower extremity deep vein thrombosis (DVT). She had previously completed 6 months of Xarelto. However, she does maintain a clot in the left lower extremity. She has been restarted on Xarelto. Patient and family services (PFS) has been consulted to help with prior authorization. She is to followup with her primary care provider (PCP) regarding duration of therapy. She may benefit from life-long therapy. 7. Chronic obstructive pulmonary disease (COPD). No oxygen (O2) requirement. She is at her baseline respiratory status. She is on Advair. 8. Diabetes. She is on sliding scale insulin. 9. Glaucoma. She is on Xalatan and Azopt. 10. Gastroesophageal reflux disease. She is on omeprazole. 11. Gout. She is on allopurinol. 12. DVT prophylaxis. She is on Xarelto. DISPOSITION: Pending physical therapy clearance.
[2017-04-18 14:00] VITALS: BP 149/67
[2017-04-18] MEDS: ACETAMINOPHEN 500 MG TAB PO PRN (18:27)
[2017-04-18] MEDS: LATANOPROST 0.005% OPHTH SOLN 2.5 ML OU SCH (18:29)
[2017-04-18 22:00] VITALS: BP 126/61
[2017-04-19] MEDS: IPRATROPIUM 0.5MG/ALBUTEROL 2.5MG INH SOL UD 3ML (DUONEB)(J7620) NEB SCH ×2 (02:00→07:23)
[2017-04-19 06:00] VITALS: BP 141/65
[2017-04-19] MEDS: ADVAIR HFA 115/21MCG INHALER INH SCH (07:22)
[2017-04-19] MEDS: RIVAROXABAN 15 MG TAB (XARELTO) PO SCH (08:00)
[2017-04-19 08:09] LABS: BASO % 0.2 % (0.0-1.0); EOS # 0.1 K/mm3 (0.0-0.50); EOS % 2.2 % (0.0-3.0); LARGE UNSTAINED CELL # 0.1 K/mm3 (0.0-0.4); LARGE UNSTAINED CELL % 1.7 % (0.0-4.0); LYMPH # 2.2 K/mm3 (1.5-4.5); LYMPH % 39.2 % (24.0-44.0); MEAN CORPUSCULAR HEMOGLOBIN 29.9 pg (27.0-33.0); MEAN CORPUSCULAR HGB CONC 31.3 g/dl (32.0-36.5); MEAN CORPUSCULAR VOLUME 95.4 fl (80.0-96.0); MONO # 0.4 K/mm3 (0.0-0.8); MONO % 6.7 % (0.0-5.0); NEUTROPHILS # 2.7 K/mm3 (1.8-7.7); PLATELET COUNT, AUTOMATED 232 k/mm3 (150-450); RED CELL DISTRIBUTION WIDTH 17.3 % (11.5-14.5); WHITE BLOOD COUNT 5.4 K/mm3 (4.0-10.0)
[2017-04-19 08:19] LABS: ALBUMIN 2.2 GM/DL (3.2-5.2); ALBUMIN/GLOBULIN RATIO 0.69 (1.00-1.93); BILIRUBIN,TOTAL 0.1 MG/DL (0.2-1.0); CALCIUM LEVEL 8.7 MG/DL (8.8-10.2); CREATININE FOR GFR 1.15 MG/DL (0.55-1.02); GLOMERULAR FILTRATION RATE 48.5 (>39); MAGNESIUM LEVEL 1.8 MG/DL (1.8-2.4); TOTAL PROTEIN 5.4 GM/DL (6.4-8.2)
[2017-04-19] MEDS: HumaLOG INSULIN (NovoLOG) PER UNIT SC SCH (08:40)
[2017-04-19] MEDS: BRINZOLAMIDE 1 % OPHTH SUSP (AZOPT) 10ML OU SCH (08:40)
[2017-04-19] MEDS: ASPIRIN 81 MG ENTERIC TAB PO SCH (08:41)
[2017-04-19] MEDS: OMEPRAZOLE 20 MG CAP PO SCH (08:41)
[2017-04-19] MEDS: SENOKOT S TAB PO SCH (08:41)
[2017-04-19] MEDS: ASCORBIC ACID 250 MG TAB PO SCH (08:42)
[2017-04-19] MEDS: ALLOPURINOL 100 MG TAB PO SCH (08:42)
[2017-04-19] MEDS ORDERED: ASPI81TAEC PO (09:59)
[2017-04-19] MEDS ORDERED: ASCO25TA PO (09:59)
[2017-04-19 12:00] VITALS: BP 140/70
--- NOTE | 2017-04-19 17:18 | DSES ---
DATE OF ADMISSION: 04/13/2017 DATE OF DISCHARGE: 04/19/2017 CONSULTANTS: Dr. Guerra PROCEDURES: Permanent pacemaker placement. DISCHARGE DIAGNOSIS: Mobitz type II heart block. SECONDARY DIAGNOSES: 1. Acute kidney injury. 2. Non-anion gap metabolic acidosis. 3. Coronary artery disease. 4. Diastolic congestive heart failure. 5. Left lower extremity deep vein thrombosis (DVT). 6. Chronic obstructive pulmonary disease (COPD). 7. Diabetes. 8. Glaucoma. 9. Gastroesophageal reflux disease. 10. Gout. HOSPITAL COURSE: The patient is a 81-year-old female who presented with lightheadedness and dizziness. She was found to be in Mobitz type II heart block. She was seen by Dr. Guerra who did place a permanent pacemaker during this stay. She tolerated the procedure well. She did have some acute kidney injury at the time of admission likely related to dehydration from overdiuresis. Her diuretics were held during the duration of her stay. She did receive some gentle IV fluids. Her renal function improved to baseline. She was found to have a stable clot despite having completed six months of Xarelto. SUBJECTIVE: The patient reports she is feeling well. She has no complaints and wants to go home. She has been cleared by physical therapy. OBJECTIVE: VITAL SIGNS: Temperature 98, pulse 86, respiratory rate 20, blood pressure 121/65, oxygen saturation 95% on room air. GENERAL: She is a pleasant, elderly, female sitting on the edge of her bed in no distress. HEENT: She has moist mucous membranes. No elevation of central venous pressure (CVP). NEUROLOGIC: Cranial nerves II-XII are grossly intact. CARDIOVASCULAR EXAMINATION: S1, S2. She has a pacer in place. The dressing is clean, dry and intact. RESPIRATORY EXAMINATION: Clear. ABDOMINAL EXAMINATION: Benign. EXTREMITIES: No clubbing, cyanosis or edema. LABORATORY STUDIES: WBC 5.4, hemoglobin 8.8, platelet count 232. Chemistry panel: Sodium 145, potassium 4.0, chloride 120, bicarbonate 15, BUN 27, creatinine 1.1. During her stay, the patient did have a duplex ultrasound of the lower extremity that revealed partial DVT in the mid left superficial femoral vein extending peripherally into the popliteal vein. ASSESSMENT AND PLAN: This is a 81-year-old female with Mobitz type II heart block and left lower extremity deep vein thrombosis (DVT) with some acute kidney injury (GUY). PROBLEM LIST: 1. Mobitz type II heart block. The patient is status post pacemaker placement. She is supposed to have an incision check with staple removal at Dr. Guerra's office in 7-10 days following the procedure as well as a pacemaker check four weeks from the procedure at his office with his physician volunteer services assistant (LEA). The patient is to keep the pacemaker incision site dry until 24 hours after staple removal. A sterile, dry dressing applied with paper tape when necessary. She is to avoid raising her arm on the side of the pacemaker beyond 90 degrees for two weeks. She is not to drive for one week. Dr. Guerra has requested that she take vitamin C 250 mg twice a day for 30 days. 2. Coronary artery disease, stable. No issues during this stay. She is on aspirin. She is not on a statin or a beta april. We will defer to Dr. Guerra. 3. Diastolic congestive heart failure. She was actually hypovolemic during her stay. She did receive gentle IV fluids. Her diuretics were held. Blood pressure was controlled without any antihypertensives. 4. Acute kidney injury, likely related to overdiuresis. As mentioned above, her diuretics were held. She received gentle IV fluids. Her renal function improved to baseline. 5. 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 6. Left lower extremity deep vein thrombosis (DVT). She previously completed six months of Xarelto. However, she does maintain a clot in the left lower extremity. She has been restarted on Xarelto. The patient is going to present to her primary care provider's office today to receive samples of Xarelto which she had been using for the last several months. She may benefit from life-long anticoagulation. We will defer to her primary care provider. Could consider outpatient hematology referral. 7. Chronic obstructive pulmonary disease (COPD). No oxygen (O2) requirement. No home steroid requirement. She is at her baseline respiratory status. She was continued on Advair. 8. Diabetes. She was on sliding scale while in the hospital. 9. Glaucoma. She is continued on Xalatan and Azopt. 10. Gastroesophageal reflux disease. She is on omeprazole. 11. Gout. She is on allopurinol. 12. DVT prophylaxis. She is on Xarelto. DISPOSITION: The patient has been seen and cleared by physical therapy for discharge home. Her clinical status has improved. She is to followup with Dr. Guerra as per his recommendations, followup with her primary care provider (PCP) as soon as possible and receive samples of Xarelto today. No driving until followup with Dr. Guerra. Her diet is as prior to admission. Wound care is as per Dr. Guerra. She is to return to the emergency room (ER) if symptoms worsen. MEDICATIONS AT THE TIME OF DISCHARGE: - vitamin C 250 mg twice a day - aspirin 81 mg daily - Xarelto 50 mg twice a day - ProAir HFA 108 mcg two puffs every four hours as needed for shortness of breath - allopurinol 100 mg daily - Lumigan one drop in each eye at bedtime - Azopt one drop twice a day 1% drop - calcitriol 0.25 mg daily - vitamin D 2000 units daily - Lasix 20 mg daily - Lantus 8 units at bedtime - Nitrostat 0.4 mg every five minutes rimes three doses for chest pain - omega-3 fatty acids as per the patient one capsule twice a day - omeprazole 20 mg daily - Os-Jamal Ultra 600 one tablet daily - Osteo Bi-Flex 250/200 one tablet daily - potassium chloride 10 mEq twice a day - PreserVision AREDS one capsule twice a day as per the patient - Advair 250/50 inhaled twice a day Greater than 30 minutes was spent organizing the disposition.
[2017-05-06] MEDS ORDERED: RIVAROXABAN 20 MG TAB (XARELTO) PO SCH (18:00)
== END 2017-04-19 12:25 | disposition home health service (06) | DRG 243 ==
LOC: M ED 11:57 → M ED INP 15:11 → M PCU 20:58 → M MS5PR 04-15 16:09
PROVIDERS: ADMIT Internal Medicine Nephrology; ATTEND Internal Medicine
PROC: 02H70JZ Insertion of Pacemaker Lead into Left Atrium, Open Approach (ICD-10-PCS; 2017-04-13)
PROC: 02HL0JZ Insertion of Pacemaker Lead into Left Ventricle, Open Approach (ICD-10-PCS; 2017-04-13)
PROC: 0JH606Z Insertion of Pacemaker, Dual Chamber into Chest Subcutaneous Tissue and Fascia, Open Approach (ICD-10-PCS; principal; 2017-04-13 15:57)
DX: I44.1 Atrioventricular block, second degree (principal); I82.412 Acute embolism and thrombosis of left femoral vein; I50.32 Chronic diastolic (congestive) heart failure; N17.9 Acute kidney failure, unspecified; E87.2 Acidosis; J44.9 Chronic obstructive pulmonary disease, unspecified; E11.9 Type 2 diabetes mellitus without complications; H40.9 Unspecified glaucoma; K21.9 Gastro-esophageal reflux disease without esophagitis; I45.2 Bifascicular block; H35.30 Unspecified macular degeneration; M10.9 Gout, unspecified; I25.10 Atherosclerotic heart disease of native coronary artery without angina pectoris; Z79.82 Long term (current) use of aspirin; Z90.49 Acquired absence of other specified parts of digestive tract; Z98.41 Cataract extraction status, right eye; Z98.42 Cataract extraction status, left eye; Z90.710 Acquired absence of both cervix and uterus; Z87.891 Personal history of nicotine dependence; Z79.4 Long term (current) use of insulin; Z88.0 Allergy status to penicillin; Z88.8 Allergy status to other drugs, medicaments and biological substances; Z95.9 Presence of cardiac and vascular implant and graft, unspecified

== ENCOUNTER → 2017-04-13 | Day surgery (SDC) | payer MEDICARE ==
[~2017-04-13] MED LIST changes: +ACETAMINOPHEN 500 MG TAB As Ordered ONE; +ASCO25TA PO; +ASPI1TAB15 PO; -ASPI81TA7 PO; +ASPI81TAEC PO; +BACITAB PO; -BACITAB3 PO; -COLA100C3 PO; +COLA100C5 PO; +ISOVUE-300 61% 50ML VIAL (Q9967) As Ordered ONE; +LIDOCAINE 1% SDV INJ 30 ML VIAL As Ordered ONE; +MIDAZOLAM INJ 2 MG/2 ML VIAL (J2250) As Ordered ONE; -MUCI600T34 PO; +MUCI600T37 PO; +MUPIROCIN 2% OINT 22 GM TUBE As Ordered ONE; +OSTETAB3 PO; +PRED10TA2 PO; -PROA1AER INH; +PROAAER10 INH; +PROPOFOL 200 MG/20 ML VIAL As Ordered ONE; +VANCOMYCIN 1000 MG/20 ML VIAL (J3370) As Ordered ONE; +XARE15TA PO; +fentaNYL 100 MCG/2 ML INJECTION (J3010) As Ordered ONE
== END | disposition home or self-care (01) ==
LOC: CANPRESDC → M OROP 16:26
PROVIDERS: ATTEND Internal Medicine Cardiovascular Disease
DX: I44.1 Atrioventricular block, second degree (principal); I45.10 Unspecified right bundle-branch block; I44.4 Left anterior fascicular block; I50.32 Chronic diastolic (congestive) heart failure; N17.9 Acute kidney failure, unspecified; I82.812 Embolism and thrombosis of superficial veins of left lower extremity; I25.10 Atherosclerotic heart disease of native coronary artery without angina pectoris; J44.9 Chronic obstructive pulmonary disease, unspecified; E11.9 Type 2 diabetes mellitus without complications; K21.9 Gastro-esophageal reflux disease without esophagitis; M10.9 Gout, unspecified; H40.9 Unspecified glaucoma; Z86.718 Personal history of other venous thrombosis and embolism; Z95.5 Presence of coronary angioplasty implant and graft; Z79.899 Other long term (current) drug therapy; Z79.82 Long term (current) use of aspirin; Z79.51 Long term (current) use of inhaled steroids; Z88.0 Allergy status to penicillin; Z88.8 Allergy status to other drugs, medicaments and biological substances

== ENCOUNTER 2017-07-30 07:58 | Emergency (ER) | payer MEDICARE ==
[~2017-07-30] VITALS: Ht 167.6 cm; Wt 75.0 kg
[~2017-07-30 07:58] MED LIST changes: +ASCO25TA PO; +ASPI81TAEC PO; +OSTETAB3 PO; +XARE15TA PO
[2017-07-30] MEDS ORDERED: XARE20TA (08:17)
[2017-07-30 08:20] LABS: MEAN CORPUSCULAR HEMOGLOBIN 27.3 pg (27.0-33.0); MEAN CORPUSCULAR HGB CONC 31.4 g/dl (32.0-36.5); MEAN CORPUSCULAR VOLUME 87.1 fl (80.0-96.0); PLATELET COUNT, AUTOMATED 260 10^3/uL (150-450); RED CELL DISTRIBUTION WIDTH 15.7 % (11.5-14.5); WHITE BLOOD COUNT 8.3 10^3/uL (4.0-10.0)
[2017-07-30 08:37] LABS: INR 1.32
[2017-07-30 08:39] LABS: CALCIUM LEVEL 9.1 MG/DL (8.8-10.2); CREATININE FOR GFR 1.61 MG/DL (0.55-1.02); GLOMERULAR FILTRATION RATE 32.8 (>32); POTASSIUM SERUM 3.8 MEQ/L (3.5-5.1)
[2017-07-30] MEDS ORDERED: XARE15TA PO (10:16)
[2017-07-30 10:22] VITALS: BP 153/70
== END 2017-07-30 10:31 | disposition home or self-care (01) ==
LOC: M ED 07:58 → EDBD 07:58 → M ED 10:31
DX: R04.0 Epistaxis (principal); I10 Essential (primary) hypertension; E78.70 Disorder of bile acid and cholesterol metabolism, unspecified; Z79.01 Long term (current) use of anticoagulants; Z79.82 Long term (current) use of aspirin; Z79.899 Other long term (current) drug therapy; Z79.4 Long term (current) use of insulin; Z88.8 Allergy status to other drugs, medicaments and biological substances; Z88.0 Allergy status to penicillin; Z88.1 Allergy status to other antibiotic agents; Z86.718 Personal history of other venous thrombosis and embolism

== ENCOUNTER → 2017-08-20 | Outpatient (REF) | payer MEDICARE ==
[~2017-08-20] MED LIST changes: +XARE20TA
[2017-08-20 19:01] LABS: PERCENT SATURATION 4.3 % (13.2-45.0)
== END ==
LOC: M LAB REF 16:40
PROVIDERS: ATTEND Internal Medicine
DX: D64.9 Anemia, unspecified (principal)

== ENCOUNTER → 2017-10-28 | Outpatient (REF) | payer MEDICARE ==
[2017-10-28 13:05] LABS: VITAMIN B12 LEVEL 263 PG/ML (247-911)
[2017-10-28 13:06] LABS: IRON (FE) 110 UG/DL (50-170); PERCENT SATURATION 21.5 % (13.2-45.0); TOTAL IRON BINDING CAPACITY 512 UG/DL (250-450)
== END ==
LOC: M LAB REF 12:21
DX: D64.9 Anemia, unspecified (principal)
CPT/HCPCS: 83550

== ENCOUNTER 2018-05-14 09:56 | Emergency (ER) | payer MEDICARE ==
[2018-05-14] MEDS: IPRATROPIUM 0.5MG/ALBUTEROL 2.5MG INH SOL UD 3ML (DUONEB)(J7620) NEB (10:42)
[2018-05-14] MEDS: ALBUTEROL SULFATE 2.5 MG/0.5 ML INH NEB SOLN INH (10:43)
[2018-05-14 10:45] LABS: BEDSIDE GLUCOSE 191 MG/DL (83-110)
[2018-05-14] MEDS: methylPREDNISolone INJ 125 MG/2 ML VIAL (J2930) IV (10:58)
[2018-05-14 11:07] LABS: BASO % 0.3 % (0.0-1.0); EOS # 0.1 10^3/uL (0.0-0.50); EOS % 0.7 % (0.0-3.0); HEMATOCRIT 35.1 % (36.0-47.0); HEMOGLOBIN 11.3 g/dl (12.0-15.5); IMMATURE GRANULOCYTE % 0.3 % (0-3.0); LYMPH # 1.7 10^3/uL (1.5-4.5); LYMPH % 17.6 % (24.0-44.0); MEAN CORPUSCULAR HEMOGLOBIN 32.3 pg (27.0-33.0); MEAN CORPUSCULAR HGB CONC 32.2 g/dl (32.0-36.5); MEAN CORPUSCULAR VOLUME 100.3 fl (80.0-96.0); MONO # 0.5 10^3/uL (0.0-0.8); MONO % 5.4 % (0.0-5.0); NEUTROPHILS # 7.3 10^3/uL (1.8-7.7); NEUTROPHILS % 75.7 % (36.0-66.0); PLATELET COUNT, AUTOMATED 213 10^3/uL (150-450); RED CELL DISTRIBUTION WIDTH 13.6 % (11.5-14.5); WHITE BLOOD COUNT 9.7 10^3/uL (4.0-10.0)
[2018-05-14 11:45] LABS: ALBUMIN 2.8 GM/DL (3.2-5.2); ALBUMIN/GLOBULIN RATIO 0.85 (1.00-1.93); ALKALINE PHOSPHATASE 93 U/L (45-117); ALT/SGPT 13 U/L (12-78); ANION GAP 11 MEQ/L (8-16); AST/SGOT 9 U/L (7-37); BILIRUBIN,DIRECT 0.1 MG/DL (0.0-0.2); BILIRUBIN,TOTAL 0.3 MG/DL (0.2-1.0); BLOOD UREA NITROGEN 32 MG/DL (7-18); CALCIUM LEVEL 8.9 MG/DL (8.8-10.2); CARBON DIOXIDE LEVEL 20 MEQ/L (21-32); CHLORIDE LEVEL 113 MEQ/L (98-107); CPK CREATINE PHOSPHOKINASE 30 U/L (26-192); CREATININE FOR GFR 1.41 MG/DL (0.55-1.30); GLOMERULAR FILTRATION RATE 38.1 (>32); GLUCOSE, FASTING 186 MG/DL (70-100); POTASSIUM SERUM 3.8 MEQ/L (3.5-5.1); SODIUM LEVEL 144 MEQ/L (136-145); TOTAL PROTEIN 6.1 GM/DL (6.4-8.2); TROPONIN I < 0.02 NG/ML (< 0.10)
[2018-05-14 11:48] LABS: LACTIC ACID SEPSIS PROTOCOL 1.6 MMOL/L (0.4-2.0)
[2018-05-14 11:51] LABS: CK-MB VALUE MASS 1.5 NG/ML (<3.6)
[2018-05-14] MEDS ORDERED: ISOVUE-370 76% 100ML VIAL (Q9967) As Ordered (12:16)
[2018-05-14] MEDS: CLARITHROMYCIN 250 MG TAB PO (14:01)
[2018-05-14] MEDS: MECLIZINE 25 MG TABLET PO (14:01)
== END 2018-05-14 14:47 | disposition home or self-care (01) ==
LOC: M ED 09:56
DX: J44.1 Chronic obstructive pulmonary disease with (acute) exacerbation (principal); I11.0 Hypertensive heart disease with heart failure; E11.9 Type 2 diabetes mellitus without complications; I50.9 Heart failure, unspecified; I25.10 Atherosclerotic heart disease of native coronary artery without angina pectoris; I25.2 Old myocardial infarction; Z86.718 Personal history of other venous thrombosis and embolism; Z95.0 Presence of cardiac pacemaker; Z95.5 Presence of coronary angioplasty implant and graft; Z79.01 Long term (current) use of anticoagulants; Z79.899 Other long term (current) drug therapy; Z79.82 Long term (current) use of aspirin; Z79.51 Long term (current) use of inhaled steroids; F17.210 Nicotine dependence, cigarettes, uncomplicated
CPT/HCPCS: Q9967

== ENCOUNTER → 2018-09-15 | Outpatient (CLI) | payer MEDICARE ==
[~2018-09-15] MED LIST changes: +BIAX500T14 PO; +KLOR10TA76 PO; +MECL-68 PO; -POTA10CA PO
--- NOTE | 2018-09-15 15:20 | REP ---
Chest two views HISTORY: Shortness of breath Comparison: 05/14/2018 The lungs are clear. The heart is normal in size. The pulmonary vasculature is normal in appearance. The bony structure is intact. A cardiac pacemaker is present. IMPRESSION: No acute disease. Electronically Signed by Vivek Haney MD 09/15/2018 03:11 P
== END ==
LOC: M RAD 14:37
PROVIDERS: ATTEND Internal Medicine
DX: R06.02 Shortness of breath (principal); Z95.0 Presence of cardiac pacemaker

== ENCOUNTER 2019-01-11 17:35 | Emergency (ER) | payer MEDICARE ==
[~2019-01-11] VITALS: Ht 167.6 cm; Wt 82.3 kg
[~2019-01-11 17:35] MED LIST changes: -/BRIN1OS OU; -/NITR4TASL SL; -ASCO25TA PO; +NITR0.4S SL; +PRED-351 PO; -PRED10TA PO; +VITA1TAB23 PO
[2019-01-11] MEDS ORDERED: SPIR-10 (17:48)
[2019-01-11] MEDS ORDERED: ADV500INH (17:48)
[2019-01-11] MEDS ORDERED: OCUVTAB4 PO (17:48)
[2019-01-11 20:01] LABS: INFLUENZA A AMPLIFICATION NEGATIVE (NEGATIVE); INFLUENZA B AMPLIFICATION NEGATIVE (NEGATIVE)
[2019-01-11 20:13] VITALS: BP 143/73
[2019-01-11] MEDS ORDERED: PRED20TA PO (20:25)
[2019-01-11] MEDS ORDERED: predniSONE 20 MG TAB PO ONE (20:30)
== END 2019-01-11 20:32 | disposition home or self-care (01) ==
LOC: M ED 17:35
DX: R59.1 Generalized enlarged lymph nodes (principal); E11.9 Type 2 diabetes mellitus without complications; I25.10 Atherosclerotic heart disease of native coronary artery without angina pectoris; Z86.718 Personal history of other venous thrombosis and embolism; Z79.899 Other long term (current) drug therapy; Z79.82 Long term (current) use of aspirin; Z79.4 Long term (current) use of insulin; Z79.01 Long term (current) use of anticoagulants; Z88.0 Allergy status to penicillin; Z88.1 Allergy status to other antibiotic agents; Z88.8 Allergy status to other drugs, medicaments and biological substances

== ENCOUNTER → 2019-01-17 | Outpatient (CLI) | payer MEDICARE ==
[~2019-01-17] MED LIST changes: +ADV500INH; +OCUVTAB4 PO; +SPIR-10
--- NOTE | 2019-01-17 14:34 | REP ---
Chest two views HISTORY: Shortness of breath Comparison: 09/15/2018 Linear densities are present in the lower lobes and lingula consistent with atelectasis or scar. The heart is normal in size. The pulmonary vasculature is normal in appearance. The bony structure is intact. IMPRESSION: Bibasilar and lingular atelectasis or scar. Electronically Signed by Vivek Haney MD 01/17/2019 02:25 P
== END ==
LOC: M RAD 13:32
PROVIDERS: ATTEND Internal Medicine
DX: J98.11 Atelectasis (principal); R06.02 Shortness of breath

== ENCOUNTER 2019-04-09 02:22 | Inpatient (IN) | payer MEDICARE ==
[~2019-04-09] VITALS: Ht 170.2 cm; Wt 86.7 kg
[~2019-04-09 02:22] MED LIST changes: -ADV500INH; +ADV500INH INH; -SPIR-10; +SPIR-10 PO
[2019-04-09 02:58] LABS: BASO % 0.3 % (0.0-1.0); EOS # 0.1 10^3/uL (0.0-0.50); EOS % 0.7 % (0.0-3.0); HEMOGLOBIN 12.8 g/dl (12.0-15.5); LYMPH % 18.6 % (24.0-44.0); MEAN CORPUSCULAR HEMOGLOBIN 33.5 pg (27.0-33.0); MEAN CORPUSCULAR HGB CONC 32.8 g/dl (32.0-36.5); MEAN CORPUSCULAR VOLUME 102.1 fl (80.0-96.0); MONO # 0.8 10^3/uL (0.0-0.8); MONO % 7.9 % (0.0-5.0); NEUTROPHILS # 7.6 10^3/uL (1.8-7.7); NEUTROPHILS % 72.2 % (36.0-66.0); PLATELET COUNT, AUTOMATED 229 10^3/uL (150-450); RED BLOOD COUNT 3.82 10^6/uL (4.00-5.40); WHITE BLOOD COUNT 10.5 10^3/uL (4.0-10.0)
[2019-04-09] MEDS ORDERED: ONDANSETRON 4MG/2ML VIAL (J2405) IV ONE (03:00)
[2019-04-09] MEDS ORDERED: NS 1,000 ML IV ONE (03:00)
[2019-04-09 03:34] LABS: ALBUMIN 2.7 GM/DL (3.2-5.2); ALT/SGPT 19 U/L (12-78); BILIRUBIN,DIRECT < 0.1 MG/DL (0.0-0.2); BILIRUBIN,TOTAL 0.3 MG/DL (0.2-1.0); BLOOD UREA NITROGEN 35 MG/DL (7-18); CALCIUM LEVEL 9.9 MG/DL (8.8-10.2); CARBON DIOXIDE LEVEL 25 MEQ/L (21-32); CHLORIDE LEVEL 106 MEQ/L (98-107); CK-MB VALUE MASS 1.7 NG/ML (<3.6); CPK CREATINE PHOSPHOKINASE 48 U/L (26-192); CREATININE FOR GFR 1.86 MG/DL (0.55-1.30); GLOMERULAR FILTRATION RATE 27.7 (>32); GLUCOSE, FASTING 153 MG/DL (70-100); LIPASE 56 U/L (73-393); MB/CK RELATIVE INDEX 3.54 (< OR =4); SODIUM LEVEL 140 MEQ/L (136-145); TOTAL PROTEIN 6.9 GM/DL (6.4-8.2); TROPONIN I < 0.02 NG/ML (< 0.10)
[2019-04-09] MEDS ORDERED: MORPHINE 4 MG/ML 1ML VIAL/SYRINGE (J2270) IV PRN ×2 (04:45→10:00)
[2019-04-09] MEDS ORDERED: METOCLOPRAMIDE INJ 10MG/2ML VIAL (J2765) IV ONE (04:45)
--- NOTE | 2019-04-09 05:55 | REPVR ---
EXAM: CT Abdomen and Pelvis Without Contrast EXAM DATE/TIME: 04/09/2019 5:12 AM CLINICAL HISTORY: 83 years old, female; Abdominal pain; Generalized; Additional info: Abd pain, R/O obstruction TECHNIQUE: Imaging protocol: Axial computed tomography images of the abdomen and pelvis without contrast. Coronal and sagittal reformatted images were created and reviewed. Radiation optimization: All CT scans at this facility use at least one of these dose optimization techniques: automated exposure control; mA and/or kV adjustment per patient size (includes targeted exams where dose is matched to clinical indication); or iterative reconstruction. COMPARISON: CT ABD/PEL W/IV CONTRAST ONLY 05/14/2018 12:15 PM FINDINGS: Tubes, catheters and devices: Pacemaker in position. Lungs: Minimal bibasilar fibro-atelectatic change and slight interstitial prominence. Mediastinum: Mild hiatal hernia. Liver: Normal. No mass. Gallbladder and bile ducts: Status post cholecystectomy. Pancreas: Normal. No ductal dilation. Spleen: Normal. No splenomegaly. Adrenals: Normal. No mass. Kidneys and ureters: Normal. No hydronephrosis. Stomach and bowel: Subtotal colectomy with ileocolic anastomosis the level of the distal sigmoid colon. Minimal colonic diverticulosis of the distal sigmoid without diverticulitis. Borderline small bowel distention with air-fluid levels and collapsed distal small bowel consistent with some degree of obstruction. There is a suggested point of transition in the anterior upper left pelvis with some stool-like material in the preceding small bowel on series 202, images #[id number]. Appendix: No evidence of appendicitis. Intraperitoneal space: Normal. No free air. No significant fluid collection. Vasculature: There is moderate atherosclerotic calcification of the abdominal aorta with extension into the iliac arteries. Lymph nodes: Normal. No enlarged lymph nodes. Bladder: Unremarkable as visualized. Reproductive: Status post hysterectomy. Bones/joints: Degenerative change of the lumbar spine with facet arthropathy and mild anterolisthesis of L4 relative to L5. Soft tissues: Unremarkable. IMPRESSION: 1. Interval partial small bowel obstruction since 05/14/2018 with a point of transition suggested in the upper anterior left pelvis with some stool-like material within the lumen of the preceding small bowel. 2. Subtotal colectomy with ileocolic anastomosis at the level of the distal sigmoid. 3. Minimal colonic diverticulosis of the distal sigmoid without diverticulitis. 4. Mild hiatal hernia. 5. There has been prior cholecystectomy and hysterectomy. Electronically signed by: Mayank Davis On 04/09/2019 05:55:17 AM
[2019-04-09] MEDS ORDERED: XARE15TA PO (08:06)
[2019-04-09] MEDS ORDERED: TORS20TA2 PO (08:06)
[2019-04-09] MEDS ORDERED: POTA1TAB14 PO (08:06)
[2019-04-09] MEDS ORDERED: TYLE650T35 PO (08:06)
[2019-04-09] MEDS ORDERED: TORS10TA3 PO (08:06)
[2019-04-09] MEDS ORDERED: OMEP-218 PO (08:06)
--- NOTE | 2019-04-09 08:18 | ECGEPIP ---
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
[2019-04-09] MEDS ORDERED: KETOROLAC 30 MG/ML VIAL (J1885) IV PRN (10:00)
[2019-04-09] MEDS ORDERED: ACETAMINOPHEN TAB 650MG DOSE (2X325MG) PO PRN (10:00)
[2019-04-09] MEDS: PANTOPRAZOLE 40MG INJ (PROTONIX) (C9113) IV SCH (10:06)
[2019-04-09] MEDS: LR 1,000 ML IV SCH ×2 (10:09→23:44)
[2019-04-09] MEDS: ONDANSETRON 4MG/2ML VIAL (J2405) IV PRN (10:18)
[2019-04-09 11:30] VITALS: BP 141/73
[2019-04-09] MEDS: ADVAIR HFA 230/21MCG INHALER INH SCH ×2 (12:30→20:01)
[2019-04-09] MEDS: HumaLOG INSULIN (NovoLOG) PER UNIT SC SCH ×3 (13:02→23:44)
--- NOTE | 2019-04-09 13:20 | CR ---
DATE OF CONSULTATION: 04/09/2019 CHIEF COMPLAINT: Nausea, vomiting and abdominal pain. 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 The patient reports that since yesterday she has been having diffuse abdominal pain and persistent nausea and vomiting of gastric contents. She has not noticed any stool contents in her vomit. No blood. She does have a history of prior obstruction in 1999 which she says required a large part of her intestines being removed. She did have a bowel movement yesterday. She has not had any today. REVIEW OF SYSTEMS: Negative in 14 out of 14 systems except as above. PAST MEDICAL HISTORY: As noted in the HPI. PAST SURGICAL HISTORY: She does have a history of subtotal colectomy sometime around 1999. A hysterectomy. Cholecystectomy. Appendectomy. Multiple breast biopsies. Cataract surgery bilaterally. History of an RCA stent in 2004. MEDICATIONS: Her home medications are: - Tylenol 650 twice a day - allopurinol 100 mg daily - aspirin 81 mg daily - calcitriol 0.25 mcg daily - vitamin D 2000 units daily - insulin 10 units at bedtime - nitroglycerin as needed chest pain - fish oil one cap by mouth twice a day - potassium chloride 20 mEq by mouth daily - Xarelto 15 mg by mouth daily - spironolactone 12.5 mg by mouth daily - torsemide 10 mg daily in addition to torsemide 20 mg daily for a total of 30 mg daily - Lumigan eye drops one drop both eyes (OU) at bedtime - brinzolamide one drop OU twice a day - Prilosec 20 mg by mouth daily - albuterol two puffs every 4 hours as needed shortness of breath - Advair one puff twice daily ALLERGIES: She is allergic to: 1. DG INHIBITORS. 2. PENICILLINS. 3. QUINOLONES. 4. STATINS. 5. COREG. 6. COLESEVELAM. 7. DEXAMETHASONE. 8. DORZOLAMIDE. 9. EZETIMIBE. 10. LOSARTAN. SOCIAL HISTORY: Patient is . She lives alone. She does drink one shot of tara every night. She quit smoking 2001. FAMILY HISTORY: No family history of gastrointestinal issues. PHYSICAL EXAMINATION: On exam, she is currently afebrile. Blood pressure 121/67, pulse is 75, respirations 16, satting 97% on 3 liters nasal cannula. In general she is in no acute distress, breathing comfortably. Cardiovascular is regular rate and rhythm. No murmurs, rubs or gallops. Lungs clear to auscultation bilaterally. Abdomen is distended but still soft. She does have some right sided abdominal pain to palpation. Extremities no clubbing, cyanosis, or edema. Skin intact. Neuro: She is alert and oriented times three, follows simple commands. No focal neurologic deficits. Psych: Mood is stable. LABORATORY DATA: Labs revealed a creatinine of 1.86, potassium of 4. CBC shows white count of 10.5, hemoglobin 12.8, platelets of 229. Urinalysis shows too numerous to count white cells, 3+ leukocyte esterase, 16 red cells. IMAGING: Shows interval partial small bowel obstruction with a point of transition suggested in the upper anterior left pelvis with some stool like material within the lumen of the preceding bowel. Subtotal colectomy with ileocolic anastomosis at the level of the distal sigmoid. Minimal colonic diverticulosis of the distal sigmoid without diverticulitis, mild hiatal hernia. There has been a prior cholecystectomy and hysterectomy. ASSESSMENT/PLAN: This is an 83-year-old female with past medical history of diabetes, COPD, pacemaker, coronary artery disease (CAD), DVT on Xarelto, who presents with a nausea, vomiting and abdominal pain, found to have a partial small bowel obstruction. 1. Partial SBO. This is to be managed per surgery. We will defer management to them. 2. History of DVT. It seems that the patient had a recurrence of her DVT when she was taken off Xarelto so she has been recommended to be on lifelong anticoagulation. For now this is being held by surgery for possible planned surgery. Given that the Xarelto is more for prophylaxis and active treatment of a DVT, I think it would be acceptable to just hold her Xarelto for now and not give heparin drip. 3. As far as her diabetes, her home Lantus is being held and she has been placed on a sliding scale. 4. History of hypertension and CAD. The patient is on home Aldactone and torsemide. It appears her creatinine is near her baseline. These have been held by surgery for now, but I think it is acceptable to resume her home medications for this given that she does not have a current GUY. 5. History of glaucoma. Continue home eye drops. Patient may be in need of preop clearance at some point. We are happy to provide this for the primary team as needed. Please reconsult us if this is needed. We will follow along. Thank you for this consult.
[2019-04-09 14:00] VITALS: BP_SYST 137; BP_SYST 156; BP_DIAS 70; BP_DIAS 86
[2019-04-09 18:00] VITALS: BP 134/69
--- NOTE | 2019-04-09 18:25 | HPE ---
DATE OF ADMISSION: 04/09/2019 ADMITTING DIAGNOSIS: Small bowel obstruction secondary to adhesions. HISTORY OF PRESENT ILLNESS: The patient is a pleasant 83-year-old woman who reports that she had been feeling well until 04/08/2019 at about 1 or 2 o'clock in the afternoon. At that point, she developed some crampy abdominal discomfort across her mid abdomen. This persisted, and she developed some nausea and vomiting. This continued through the evening and into the night and at about 1:30 or 2 o'clock in the morning she presented to the emergency department for evaluation. She had some laboratory studies obtained, followed by a CT scan of the abdomen and pelvis done at about 5 o'clock this morning. The CT scan was interpreted by the radiologist as showing findings consistent with a small bowel obstruction. He or she indicated that there was a suggestion of a transition point in the left anterior pelvis. There was no evidence of free air or free fluid. I was consulted. A nasogastric tube was placed in the emergency department. She is now admitted for management of her apparent small intestinal obstruction. ALLERGIES: Patient has multiple medications listed as either allergies or adverse reactions which include: DG INHIBITORS, PENICILLINS, QUINOLONES, STATINS, CARVEDILOL, COLESEVELAM, DEXAMETHASONE, DORZOLAMIDE, ACETAMIDE, LOSARTAN, NEOMYCIN, PITAVASTATIN, POLYMYXIN B AND TIMOLOL. CURRENT MEDICATIONS: Currently include: - Tylenol as needed - albuterol inhaler two puffs every 4 hours as needed for shortness of breath - allopurinol 100 mg by mouth daily - aspirin 81 mg by mouth daily - Lumigan eye drops one drop both eyes at bedtime - Azopt eye drops one drop in both eyes twice daily - calcitriol 0.25 mcg capsules one daily - vitamin D 3000 2000 units by mouth daily - Lantus insulin 10 units subcutaneous at bedtime - nitroglycerin tablets sublingual as needed for chest pain - omega 3 fatty acids/fish oil capsules one capsule twice daily - omeprazole 20 mg by mouth daily - potassium chloride 20 mg by mouth daily - Xarelto 15 mg by mouth daily - Advair 500/50 Diskus one puff twice daily - spironolactone 12.5 mg by mouth daily - torsemide 30 mg by mouth daily - vitamin tablet, PreserVision Areds one tablet twice daily MEDICAL HISTORY: Patient's primary physician is Dr. Wang. She sees Dr. Yanez for her chronic obstructive pulmonary disease (COPD). She has a history of hypertension and coronary artery disease and has had a coronary artery stent placed some time ago. About two years ago, she had a pacemaker placed. She reports a history of some congestive heart failure. She has diabetes mellitus type 2 on insulin. She has a history of deep vein thrombosis in her left lower extremity about 2 to 2-1/2 years ago and has been continued on Xarelto since. She has a history of gastroesophageal reflux disease. She has gout and glaucoma and macular degeneration. Surgical history is significant for coronary stent. She had a pacemaker placement about two years ago. She had a subtotal colectomy back in about 2004 for multiple colonic polyps. She has not had a scope in about the last 5-6 years and has usually seen Dr. Jones for her endoscopy. She has history of an appendectomy through a right lower quadrant paramedian incision. She has had an open cholecystectomy through a right subcostal incision. She reports a history of a hysterectomy. She has had bilateral cataract surgery and has had breast biopsies that were benign on both breasts. FAMILY HISTORY: Is not relevant at this time. SOCIAL HISTORY: She is a former smoker, but quit back in about 2001 after having a bout of pneumonia. She denies any significant alcohol intake. She is a and lives alone currently. She reports that she uses a cane to ambulate when she is outside of her own home. REVIEW OF SYSTEMS: Patient denies any recent chest pain or shortness of breath. She has not had any melena or hematochezia. She denies any prior history of bowel obstruction. She does report some symptoms of peripheral neuropathy in both feet with some numbness. PHYSICAL EXAMINATION: Reveals a pleasant older woman in no obvious discomfort at this time. She does have a nasogastric tube in place. Skin is warm and dry, though she does appear slightly pale. Sclerae are anicteric. Neck is supple without any mass or bruit. Heart exam shows a regular rhythm. The lungs are clear to auscultation bilaterally. The abdomen is perhaps mildly obese. She has an old long midline scar. There is an old right lower quadrant paramedian scar which is quite long and then there is also a right subcostal scar. There is no evident hernia seen. She does have a few bowel sounds present. On palpation and a gentle percussion, she has some tenderness in the left midabdomen about at the level of the umbilicus. There is some fullness in this area. The right side of the abdomen is somewhat softer and without significant tenderness. Lower extremities reveal a trace of edema in her ankles and feet. I do not feel her pulses in her feet but the toes are clearly pink and viable. LABORATORY STUDIES: Include a complete blood count (CBC) that showed a white count of 10, hemoglobin 13, hematocrit of 39 and a platelet count of 229,000. Differential count showed 72% neutrophils, 19% lymphocytes and 8% monocytes. Chemistry profile showed a sodium of 140, potassium 4.0, chloride 106, CO2 of 25, BUN of 35, creatinine 1.86 and a glucose of 153. I would note that when she was admitted two years ago for some shortness of breath, her BUN was 33 with a creatinine of 1.69. Her liver function tests are normal, with a total protein of 6.9 and an albumin of 2.7. A lipase was normal and her troponin was less than 0.02. Urinalysis showed too numerous to count white cells and 3+ leukocyte esterase and there were some squamous epithelial cells noted. This was reflexively sent for a culture. Her CT report is as noted in history of present illness and was suggestive of a small bowel obstruction. I reviewed the images myself and there is some mildly to moderately dilated fluid in air-filled small bowel in the left mid and upper abdomen with the right lower quadrant showing some nicely decompressed small bowel by comparison. On my review, the level of her change in caliber would seem to be in the general vicinity of her ileocolonic anastomosis lysed. IMPRESSION: 1. His small bowel obstruction secondary to adhesions. 2. Atherosclerotic coronary artery disease status post stenting. 3. Status post pacemaker placement. 4. Chronic obstructive pulmonary disease. 5. Hypertension. 6. Congestive heart failure, primarily diastolic. 7. Type 2 diabetes. 8. History of left lower extremity deep venous thrombosis (DVT) on Xarelto. 9. Gout. 10. Glaucoma. 11. Macular degeneration. PLAN: Patient has had an nasogastric (NG) tube inserted. She will receive maintenance intravenous (IV) fluid. She has her diabetes will be managed with a sliding scale. I will hold her Xarelto for now. It has been quite some time since her DVT and if surgery became necessary, we would need to have her anticoagulation reversed. She does not appear to have any reason for antibiotics at this time. I will continue her inhalers for her COPD. She has been seen by the hospitalist for consultation. I will continue to follow her for her bowel obstruction and obtain a followup KUB tomorrow. Hopefully, she will resolve this without the need for surgical intervention, but if there is no evident resolution in the next 24-48 hours, then I would consider proceeding with surgery.
[2019-04-09 22:00] VITALS: BP 121/76
[2019-04-09] MEDS: LATANOPROST 0.005% OPHTH SOLN 2.5 ML OU SCH (22:09)
[2019-04-09] MEDS: BRINZOLAMIDE 1 % OPHTH SUSP (AZOPT) 10ML OU SCH (22:09)
[2019-04-10 02:00] VITALS: BP 115/53
[2019-04-10] MEDS: HumaLOG INSULIN (NovoLOG) PER UNIT SC SCH ×4 (05:43→23:35)
[2019-04-10 05:45] LABS: BASO % 0.3 % (0.0-1.0); EOS # 0.1 10^3/uL (0.0-0.50); EOS % 0.4 % (0.0-3.0); LYMPH % 17.1 % (24.0-44.0); MEAN CORPUSCULAR HEMOGLOBIN 32.6 pg (27.0-33.0); MEAN CORPUSCULAR HGB CONC 31.6 g/dl (32.0-36.5); MEAN CORPUSCULAR VOLUME 103.2 fl (80.0-96.0); MONO % 8.7 % (0.0-5.0); NEUTROPHILS # 8.6 10^3/uL (1.8-7.7); NEUTROPHILS % 73.1 % (36.0-66.0); PLATELET COUNT, AUTOMATED 200 10^3/uL (150-450); WHITE BLOOD COUNT 11.8 10^3/uL (4.0-10.0)
[2019-04-10 05:47] LABS: HEMOGLOBIN 10.1 g/dl (12.0-15.5)
[2019-04-10 06:00] VITALS: BP 118/59
[2019-04-10 06:10] LABS: CREATININE FOR GFR 1.76 MG/DL (0.55-1.30); GLOMERULAR FILTRATION RATE 29.5 (>32); POTASSIUM SERUM 3.7 MEQ/L (3.5-5.1)
[2019-04-10] MEDS: ADVAIR HFA 230/21MCG INHALER INH SCH ×2 (07:54→20:02)
[2019-04-10] MEDS: PANTOPRAZOLE 40MG INJ (PROTONIX) (C9113) IV SCH (08:32)
[2019-04-10] MEDS: BRINZOLAMIDE 1 % OPHTH SUSP (AZOPT) 10ML OU SCH ×2 (08:32→20:15)
[2019-04-10] MEDS ORDERED: BRINZOLAMIDE 1 % OPHTH SUSP (AZOPT) 10ML OU SCH (09:00)
[2019-04-10 10:00] VITALS: BP 129/65
[2019-04-10] MEDS: LR 1,000 ML IV SCH (12:38)
[2019-04-10 14:00] VITALS: BP 105/45
--- NOTE | 2019-04-10 14:25 | REP ---
REASON: History of small bowel obstruction. There are no priors for comparison. FINDINGS: KUB shows the intestinal gas pattern to be nonspecific. The organ silhouettes insofar as delineated are unremarkable. There is no evidence of free intraperitoneal air. The distal portion of the nasogastric tube is seen with the proximal port of which appears to be at the level of the GE junction. Correlate clinically. IMPRESSION: Nonspecific. Electronically Signed by Feliz Chester DO 04/10/2019 02:47 P
--- NOTE | 2019-04-10 17:46 | IPNPDOC ---
Date Seen The patient was seen on 04/10/19. Progress Note SUBJECTIVE: no vomiting still w abdominal pain OBJECTIVE PHYSICAL EXAMINATION: VITAL SIGNS: Please see below. GENERAL: NAD HEENT: +NGT ABDOMINAL: TTP throughout A/P #Partial SBO #Hx of DVT #CKD at baseline #CAD #COPD #DM #Glaucoma - pSBO per surgery - holding xarelto but consider heparin gtt givrn xarelto is for hx of DVT management in patient if will not be going to OR soon - ISS , lantus held - consider resuming home aldactone and torsemide to prevent volume overload, pt Cr is at baseline VS, I&O, 24H, Fishbone Vital Signs/I&O Vital Signs Date Time Temp Pulse Resp B/P (MAP) Pulse Ox O2 Delivery O2 Flow Rate FiO2 04/10/19 14:00 98.3 74 18 105/45 (65) 95 04/09/19 11:15 Nasal Cannula 3.0 I&O- Last 24 Hours up to 6 AM 04/10/19 05:59 Intake Total 450 ml Output Total 500 ml Balance -50 ml Laboratory Data 24H LABS Laboratory Tests 2 04/09/19 17:46: Bedside Glucose (Misc Panel) 134H 04/09/19 23:40: Bedside Glucose (Misc Panel) 143H 04/10/19 05:27: Immature Granulocyte % (Auto) 0.4, White Blood Count 11.8H, Red Blood Count 3.10L, Hemoglobin 10.1#L, Hematocrit 32.0L, Mean Corpuscular Volume 103.2H, Mean Corpuscular Hemoglobin 32.6, Mean Corpuscular Hemoglobin Concent 31.6L, Red Cell Distribution Width 14.3, Platelet Count 200, Neutrophils (%) (Auto) 73.1H, Lymphocytes (%) (Auto) 17.1L, Monocytes (%) (Auto) 8.7H, Eosinophils (%) (Auto) 0.4, Basophils (%) (Auto) 0.3, Neutrophils # (Auto) 8.6H, Lymphocytes # (Auto) 2.0, Monocytes # (Auto) 1.0H, Eosinophils # (Auto) 0.1, Basophils # (Auto) 0.0, Nucleated Red Blood Cells % (auto) 0.0, Anion Gap 5L, Glomerular Filtration Rate 29.5L, Blood Urea Nitrogen 35H, Creatinine 1.76H, Sodium Level 146H, Potassium Level 3.7, Chloride Level 114H, Carbon Dioxide Level 27, Calcium Level 9.0 04/10/19 05:36: Bedside Glucose (Misc Panel) 108 04/10/19 11:37: Bedside Glucose (Misc Panel) 91 CBC/BMP Laboratory Tests 04/10/19 05:27 Red Blood Count 3.10 L, Mean Corpuscular Volume 103.2 H, Mean Corpuscular Hemoglobin 32.6, Mean Corpuscular Hemoglobin Concent 31.6 L, Red Cell Distribu tion Width 14.3, Neutrophils (%) (Auto) 73.1 H, Lymphocytes (%) (Auto) 17.1 L, Monocytes (%) (Auto) 8.7 H, Eosinophils (%) (Auto) 0.4, Basophils (%) (Auto) 0.3, Neutrophils # (Auto) 8.6 H, Lymphocytes # (Auto) 2.0, Monocytes # (Auto) 1.0 H, Eosinophils # (Auto) 0.1, Basophils # (Auto) 0.0, Calcium Level 9.0 Microbiology Microbiology 04/09/19 Urine Culture, Received Pending LISA CROFT MD Apr 10, 2019 17:46
[2019-04-10 18:00] VITALS: BP 113/47
[2019-04-10] MEDS: LATANOPROST 0.005% OPHTH SOLN 2.5 ML OU SCH (20:15)
[2019-04-10] MEDS ORDERED: ENTER DRUG NAME HERE (PATIENT'S OWN MED) OU SCH (21:00)
[2019-04-10 22:00] VITALS: BP 114/48
[2019-04-11] MEDS: LR 1,000 ML IV SCH ×2 (01:38→14:47)
[2019-04-11 02:00] VITALS: BP 114/50
[2019-04-11] MEDS: HumaLOG INSULIN (NovoLOG) PER UNIT SC SCH ×3 (05:47→16:44)
[2019-04-11 06:00] VITALS: BP 123/57
--- NOTE | 2019-04-11 06:57 | IPN ---
DATE: 04/10/2019 HISTORY: The patient was admitted on the morning of April 09 with some abdominal pain and nausea and vomiting and a CT suggesting a small bowel obstruction. She has been treated with an NG tube and IV hydration. Today she reports that she is not having any real pain, but does have some tenderness still on the left side of the abdomen. She reports no flatus or bowel movement. Vital signs show that she has been afebrile since yesterday. Her pulse has ranged from 59 to about 90. Blood pressure is good and her room air oxygen saturation is normal. Intake and output show that yesterday she had only 450 recorded in, although I believe this underestimates her IV intake. Her NG output was 500 yesterday and has been only 125 overnight. Her urine output appears adequate. PHYSICAL EXAMINATION: The patient is alert and oriented. She appears comfortable at rest. Heart exam reveals a regular rate and rhythm. The lungs are clear to auscultation. The abdomen is perhaps mildly full. She does have some bowel sounds present, though they are fairly faint. There is some tenderness to percussion just at and to the left of the umbilicus. There is some very slight fullness in the left side of the abdomen today which appears improved compared to yesterday. The right side of the abdomen remains soft and without significant tenderness. Laboratory studies today show a white count of 12, hemoglobin of 10, hematocrit of 32 and a platelet count of 200,000. Differential count shows 73% neutrophils, 17% lymphocytes and 9% monocytes. Chemistry profile shows a sodium of 146, potassium 3.7, chloride 114, CO2 of 27, BUN of 35, creatinine 1.76 and a glucose of 107. A repeat abdominal x-ray was obtained which appears to show diminished small bowel air with some air noted in the colon primarily. IMPRESSION: Small bowel obstruction secondary to adhesions. She has not had any return of bowel function as manifest by bowel movements or flatus, but her discomfort has diminished, though she remains mildly tender in the left midabdomen. PLAN: Dr. Gutierrez's evaluation is noted and her recommendations are also noted. I will continue her on her current IV fluid. The NG tube will be continued to low intermittent suction. I encouraged her to be up out of bed. We will continue to monitor for any return of bowel function. I will hold her Xarelto for now. She has only been in the hospital 24 hours. We will give her a bit longer to see if this will resolve.
[2019-04-11] MEDS: ADVAIR HFA 230/21MCG INHALER INH SCH ×2 (07:35→20:32)
[2019-04-11] MEDS: PANTOPRAZOLE 40MG INJ (PROTONIX) (C9113) IV SCH (08:50)
[2019-04-11] MEDS: BRINZOLAMIDE 1 % OPHTH SUSP (AZOPT) 10ML OU SCH ×2 (08:51→21:12)
[2019-04-11 10:00] VITALS: BP 125/57
--- NOTE | 2019-04-11 12:06 | IPN ---
DATE: 04/11/2019 Patient complains of chronic cough productive of white sputum that she attributes to her chronic obstructive pulmonary disease (COPD). She says that she takes Advair twice daily, which improves her symptoms. She otherwise denies any shortness of breath, chest pain, pressure or tightness. She still complains of left lower quadrant abdominal discomfort that she calls achy. No flatus as yet and no bowel movements. Still with nasogastric tube and IV fluids on board. Temperature 98, pulse 78, respiratory 175/57, 95% on 2 liters nasal cannula. Generally, patient is awake, alert, oriented answering questions appropriately. No respiratory distress or use of respiratory accessory muscles. No jugular venous distention (JVD). Lungs are diminished with faint expiratory wheezing. Heart: S1, S2, sinus rhythm. Abdomen is soft, tender in the left lower quadrant. No rebound or guarding. Obese abdomen. Nondistended. Nasogastric tube in place. Extremities have compression stockings. ASSESSMENT/PLAN: 83-year-old female with past medical history significant for deep venous thrombosis (DVT) in the left lower extremity on chronic Xarelto, hypertension, COPD, coronary artery disease (CAD) with stent, diabetes, glaucoma, pacer due to sick sinus syndrome, presents with partial bowel obstruction, currently nothing by mouth with nasogastric tube, improving on conservative management. CURRENT ISSUES: 1. Partial small bowel obstruction with history of subtotal colectomy around 1999. Patient's current bowel obstruction is felt to be secondary to adhesions due to prior history of multiple surgical interventions. Manage by primary team currently off of the Xarelto on IV fluids and nothing by mouth status with nasogastric tube to low intermittent suctioning. Patient has already improved from admission and currently has persistent left lower quadrant crampiness but no nausea, no vomiting and with positive bowel sounds. 2. History of DVT in the left lower extremity on chronic Xarelto which has been held. Currently, patient is ambulating well. 3. History of COPD on Advair and nebulizers as needed. No acute exacerbation at this time. 4. History of coronary artery disease and right coronary syndrome in 2004. Denies any acute ischemic symptoms. 5. History of pacer secondary to sick sinus syndrome, stable. 6. Hypernatremia: Due to nothing by mouth status, currently on IV fluid. No signs of heart failure. 7. Chronic kidney disease: Currently at baseline creatinine. Avoiding nephrotoxins and renally dosing all medications.
[2019-04-11 14:00] VITALS: BP 147/73
[2019-04-11 18:00] VITALS: BP 143/72
[2019-04-11] MEDS: LATANOPROST 0.005% OPHTH SOLN 2.5 ML OU SCH (21:12)
[2019-04-11 22:00] VITALS: BP 144/69
[2019-04-12 02:00] VITALS: BP 112/57
[2019-04-12] MEDS: ONDANSETRON 4MG/2ML VIAL (J2405) IV PRN (03:51)
[2019-04-12] MEDS: LR 1,000 ML IV SCH (03:51)
[2019-04-12 06:00] VITALS: BP 126/59
[2019-04-12] MEDS: HumaLOG INSULIN (NovoLOG) PER UNIT SC SCH ×4 (06:00→18:24)
[2019-04-12] MEDS: ADVAIR HFA 230/21MCG INHALER INH SCH ×2 (07:46→19:52)
--- NOTE | 2019-04-12 08:53 | IPNPDOC ---
Subjective General Date/Time Seen The patient was seen on 04/12/19 at 08:53. Subject Chief Complaint/History The patient is a 83-year-old female admitted with a reason for visit of Small Bowel Obstruction Due To Adhesion. Patient reports she's feeling better this morning though she had a rough night last night with some abdominal cramping. Her NG tube did drain a liter yesterday and 600 overnight and her abdomen looks more decompressed. The previously reported infraumbilical discomfort is mostly gone at this time and she's feeling the urge to go and is tried to sit on the toilet bowl with no success. She is denying any nausea at this point. I ordered an abdominal x-ray this morning. Current Medications Current Medications Current Medications Medications (Trade) Dose Ordered Sig/Susan Route PRN Reason Start Time Stop Time Status Last Admin Dose Admin Acetaminophen (Tylenol Tab) 650 mg Q4HP PRN PO MILD PAIN or TEMP > 101 04/09/19 10:00 Albuterol Sulfate (Proventil, Ventolin Hfa) 2 puff Q4H PRN INH SHORTNESS OF BREATH 04/09/19 10:00 Brinzolamide (Azopt) 1 drop BID OU 04/09/19 21:00 04/11/19 21:12 Brinzolamide (Azopt) 1 drop BID OU 04/10/19 09:00 04/10/19 09:00 DC Home Med (Med Rec Complete!) ASDIRECTED XX 04/09/19 08:15 04/09/19 08:15 DC Insulin Human Lispro (HumaLOG INSULIN) SEE PROTOCOL TABLE Q6H SC 04/09/19 12:00 04/10/19 23:35 Ketorolac Tromethamine (ToRADol) 15 mg Q6HP PRN IV MILD/MODERATE PAIN (PS 1-7) 04/09/19 10:00 04/14/19 09:59 Lactated Ringer's 1,000 ml @ 75 mls/hr [id number] IV 04/09/19 09:49 04/12/19 03:51 Latanoprost (Xalatan 0.005% Op Soln) 1 drop QHS OU 04/09/19 21:00 04/11/19 21:12 Morphine Sulfate (Morphine Sulfate Inj) 2 mg Q2HP PRN IV SEVERE PAIN (PS 8-10) 04/09/19 10:00 Morphine Sulfate (Morphine Sulfate Inj) 4 mg Q15M PRN IV CHEST PAIN 04/09/19 04:45 04/09/19 09:59 DC 04/09/19 05:05 Ondansetron HCl (ZOFRAN INJection) 4 mg Q6HP PRN IV NAUSEA OR VOMITING 04/09/19 10:00 04/12/19 03:51 Pantoprazole Sodium (Protonix) 40 mg DAILY IV 04/09/19 09:00 04/11/19 08:50 Patient Own Medication (Patient'S Own Med) Lumigan 1 drop OU QHS QHS OU 04/10/19 21:00 04/10/19 21:00 DC Salmeterol Xinafoate/ Fluticasone (Advair Hfa 230/ 21) 1 puff BID INH 04/09/19 09:00 04/12/19 07:46 Allergies Coded Allergies: carvedilol (Verified Allergy, Severe, difficulty breathing, 04/09/19) pitavastatin (Verified Allergy, Severe, anaphylaxis, 04/09/19) dexamethasone (Verified Allergy, Intermediate, eyes burn, 04/09/19) dorzolamide (Verified Allergy, Intermediate, eyes burn, 04/09/19) neomycin (Verified Allergy, Intermediate, eyes burn, 04/09/19) polymyxin B (Verified Allergy, Intermediate, eyes burn, 04/09/19) timolol (Verified Allergy, Intermediate, eyes burn, 04/09/19) Penicillins (Verified Allergy, Mild, rash, 04/09/19) Quinolones (Verified Allergy, Mild, rash, 04/09/19) DG Inhibitors (Verified Adverse Reaction, Intermediate, kidney problems / cough, 04/09/19) Klduahq-Fay-Tln Reductase Inhibitor (Verified Adverse Reaction, Mild, myalgia, 04/09/19) colesevelam (Verified Adverse Reaction, Mild, myalgia, 04/09/19) ezetimibe (Verified Adverse Reaction, Mild, myalgia, 04/09/19) losartan (Verified Adverse Reaction, Mild, nausea / no appetite, 04/09/19) Objective Physical Examination Examination GENERAL APPEARANCE: Looks comfortable. SKIN: Warm and dry. HEENT: Has NG tube in place and seems to be working appropriately. Bilious drainage noted. NECK: Short, supple neck, no obvious jugular venous distention. LUNGS: Clear to auscultation bilaterally. No wheezing appreciated. HEART: No chest wall abnormalities. Regular rate and rhythm with no murmurs appreciated. ABDOMEN: Abdomen is obese, soft, only minimally distended this point. Overall no point tenderness though she reports some discomfort with deep palpation on her pelvis. EXTREMITIES: No edema. Vital Signs Vital Signs Date Time Temp Pulse Resp B/P (MAP) Pulse Ox O2 Delivery O2 Flow Rate FiO2 04/12/19 06:00 98.5 75 20 126/59 (81) 93 04/09/19 11:15 Nasal Cannula 3.0 I&Os I&O- Last 24 Hours up to 6 AM 04/12/19 06:00 Intake Total 870 ml Output Total 800 ml Balance 70 ml Laboratory Data Labs 24H Laboratory Tests 2 04/11/19 11:28: Bedside Glucose (Misc Panel) 114H 04/11/19 16:20: Bedside Glucose (Misc Panel) 99 04/12/19 00:00: Bedside Glucose (Misc Panel) 114H 04/12/19 06:06: Bedside Glucose (Misc Panel) 99 04/12/19 06:57: Bedside Glucose (Misc Panel) 109 Microbiology Microbiology 04/09/19 Urine Culture - Final, Complete Klebsiella Pneumoniae Impression small bowel obstruction Clinical exam as well as the x-rays show she is fairly decompressed with her some loops of small bowel in the upper abdomen that still is looking distended. She has some air in her cecum on the x-rays done 2 days ago and today. He is feeling some urge to go and no give her a dose of MiraLAX to see if this will help her pass things through the obstruction. I'll keep the NG tube on suction. She is about 4 days from the admission now and though she so doing some signs of improvement, may not fully resolve this. I told her that tentatively will make plans to bring her to the operating room tomorrow if she still has not resolved her bowel obstruction. Plan / VTE VTE Prophylaxis Ordered?: Yes CHAPARRITA JONES MD Apr 12, 2019 08:53
[2019-04-12 09:30] LABS: BASO % 0.2 % (0.0-1.0); EOS # 0.1 10^3/uL (0.0-0.50); EOS % 0.9 % (0.0-3.0); HEMATOCRIT 31.5 % (36.0-47.0); HEMOGLOBIN 9.8 g/dl (12.0-15.5); LYMPH # 1.4 10^3/uL (1.5-4.5); LYMPH % 15.3 % (24.0-44.0); MEAN CORPUSCULAR HEMOGLOBIN 33.4 pg (27.0-33.0); MEAN CORPUSCULAR HGB CONC 31.1 g/dl (32.0-36.5); MEAN CORPUSCULAR VOLUME 107.5 fl (80.0-96.0); MONO # 0.9 10^3/uL (0.0-0.8); MONO % 9.6 % (0.0-5.0); NEUTROPHILS # 6.9 10^3/uL (1.8-7.7); NEUTROPHILS % 73.7 % (36.0-66.0); PLATELET COUNT, AUTOMATED 176 10^3/uL (150-450); RED BLOOD COUNT 2.93 10^6/uL (4.00-5.40); WHITE BLOOD COUNT 9.3 10^3/uL (4.0-10.0)
[2019-04-12 09:58] LABS: CALCIUM LEVEL 8.9 MG/DL (8.8-10.2); CREATININE FOR GFR 1.18 MG/DL (0.55-1.30); GLOMERULAR FILTRATION RATE 46.8 (>32); POTASSIUM SERUM 3.4 MEQ/L (3.5-5.1)
[2019-04-12 10:00] VITALS: BP 148/65
[2019-04-12] MEDS: PANTOPRAZOLE 40MG INJ (PROTONIX) (C9113) IV SCH (10:06)
[2019-04-12] MEDS: BRINZOLAMIDE 1 % OPHTH SUSP (AZOPT) 10ML OU SCH ×2 (10:06→20:24)
[2019-04-12] MEDS: KCL 10MEQ IN D5/0.45NS 1000ML 1,000 ML IV SCH ×2 (11:45→20:24)
[2019-04-12] MEDS ORDERED: MIRALAX *UNIT DOSE* 17GM PACKET PO ONE (12:00)
--- NOTE | 2019-04-12 13:40 | REP ---
ABDOMINAL SERIES: Supine and erect view of the abdomen demonstrate no free air. There are mildly dilated small bowel loops in the lower abdomen and upper pelvis with air fluid levels on the upright view. The appearance is similar to the prior exam of 04/10/2019. Scattered metallic clips are seen in the upper abdomen. Diffuse vascular calcifications are present. There is a nasogastric tube with sideport just distal to the gastroesophageal junction. An accompanying view of the chest demonstrates chronic bibasilar fibrotic change. There is no definite superimposed acute infiltrate. Heart is normal in size. There is a left dual lead pacemaker with calcification of the thoracic aorta. IMPRESSION: Mildly dilated small bowel loops again seen unchanged since the KUB of 04/10/2019. Electronically Signed by Fady Galvin MD 04/13/2019 07:42 A
[2019-04-12 14:00] VITALS: BP 150/62
[2019-04-12 18:00] VITALS: BP 150/65
[2019-04-12] MEDS: LATANOPROST 0.005% OPHTH SOLN 2.5 ML OU SCH (20:24)
[2019-04-12] MEDS ORDERED: KCL 10MEQ IN D5/0.45NS 1000ML 1,000 ML IV SCH (21:00)
[2019-04-12 21:40] LABS: CREATININE FOR GFR 1.27 MG/DL (0.55-1.30); POTASSIUM SERUM 3.2 MEQ/L (3.5-5.1)
[2019-04-12 22:00] VITALS: BP 144/62
[2019-04-13] MEDS: HumaLOG INSULIN (NovoLOG) PER UNIT SC SCH ×4 (00:29→18:54)
[2019-04-13 02:00] VITALS: BP 132/62
[2019-04-13 02:11] LABS: CALCIUM LEVEL 8.8 MG/DL (8.8-10.2); CREATININE FOR GFR 1.36 MG/DL (0.55-1.30); GLOMERULAR FILTRATION RATE 39.7 (>32); POTASSIUM SERUM 3.2 MEQ/L (3.5-5.1)
[2019-04-13] MEDS: KCL 20MEQ IN D5W 1000ML 1,000 ML IV SCH ×3 (03:49→20:44)
[2019-04-13 06:00] VITALS: BP 160/68
[2019-04-13 06:29] LABS: BASO % 0.1 % (0.0-1.0); EOS # 0.1 10^3/uL (0.0-0.50); EOS % 0.8 % (0.0-3.0); HEMATOCRIT 31.2 % (36.0-47.0); HEMOGLOBIN 9.9 g/dl (12.0-15.5); LYMPH # 1.7 10^3/uL (1.5-4.5); MEAN CORPUSCULAR HEMOGLOBIN 33.8 pg (27.0-33.0); MEAN CORPUSCULAR HGB CONC 31.7 g/dl (32.0-36.5); MEAN CORPUSCULAR VOLUME 106.5 fl (80.0-96.0); MONO # 0.9 10^3/uL (0.0-0.8); NEUTROPHILS # 5.7 10^3/uL (1.8-7.7); NEUTROPHILS % 67.7 % (36.0-66.0); PLATELET COUNT, AUTOMATED 179 10^3/uL (150-450); RED BLOOD COUNT 2.93 10^6/uL (4.00-5.40); WHITE BLOOD COUNT 8.4 10^3/uL (4.0-10.0)
[2019-04-13 06:43] LABS: CALCIUM LEVEL 8.8 MG/DL (8.8-10.2); CREATININE FOR GFR 1.25 MG/DL (0.55-1.30); GLOMERULAR FILTRATION RATE 43.8 (>32); POTASSIUM SERUM 3.2 MEQ/L (3.5-5.1)
[2019-04-13 06:45] LABS: INR 1.12; PROTHROMBIN TIME 14.1 SECONDS (11.8-14.0)
[2019-04-13] MEDS: ADVAIR HFA 230/21MCG INHALER INH SCH ×2 (08:21→20:16)
[2019-04-13] MEDS: BRINZOLAMIDE 1 % OPHTH SUSP (AZOPT) 10ML OU SCH ×2 (08:33→20:44)
[2019-04-13] MEDS: PANTOPRAZOLE 40MG INJ (PROTONIX) (C9113) IV SCH (08:33)
[2019-04-13] MEDS: POTASSIUM CHLORIDE 10 MEQ SR TABLET PO SCH (11:00)
[2019-04-13] MEDS: ONDANSETRON 4MG/2ML VIAL (J2405) IV PRN (11:01)
--- NOTE | 2019-04-13 11:59 | IPN ---
DATE: 04/12/2019 Patient denies any shortness of breath, chest pain, pressure or tightness this morning despite IV fluids and history of congestive heart failure (CHF). She has not passed any flatus. No abdominal distention or abdominal pain. She was nauseated yesterday, continues to have nasogastric tube with tube drainage of 1 liter yesterday and 780 mL all day today. Patient is scheduled tentatively for lysis of adhesions, exploratory laparotomy in the morning for bowel obstruction that is not resolving with conservative management. The patient's anticoagulation and deep vein thrombosis (DVT) prophylaxis have been discontinued. Temperature 97.2, pulse 90, respiratory rate 18, blood pressure 148/65, 95% on room it. Generally awake, alert, oriented times three, answering questions appropriately. Nasogastric tube is noted on low intermittent suction. She has no conversational dyspnea. No jugular venous distention (JVD). Lungs are diminished bilaterally. Heart S1, S2, sinus rhythm. Abdomen is soft, nontender, nondistended. Hyperactive bowel sounds. No rebound or guarding. Extremities no cyanosis or clubbing. LABORATORY DATA: CBC and metabolic panel have been reviewed, notable for a hemoglobin of 9.8, hematocrit of 31, as well as sodium level 149, potassium 3.4, creatinine is normal at 1.18. IMAGING STUDIES: Abdominal x-ray 04/12/2019 mildly dilated small bowel loops again seen that is unchanged since 04/10/2019. ASSESSMENT/PLAN: This is an 83-year-old female with past medical history significant for deep venous thrombosis (DVT) in the left lower extremity on chronic Xarelto, ambulating well, COPD, history of coronary artery disease (CAD), pacemaker due to sick sinus syndrome, chronic kidney disease stage III, who presented with partial bowel obstruction, history of subtotal colectomy in 1999, most likely secondary to adhesions. CURRENT ACUTE ISSUES: 1. Partial small bowel obstruction. Most likely secondary to adhesions. Primary team has been managing conservatively with nasogastric tube suctioning with a liter of gastric drainage out overnight and 800 throughout the day today with no passage of flatus. KUB remains unchanged from prior x-rays. Patient is tentatively placed on the OR schedule for exploratory laparotomy and lysis of adhesions tomorrow morning. She is currently kept nothing by mouth due to bowel obstruction and intravenous fluids. 2. Hypernatremia secondary to dehydration due to nothing by mouth status. Fluids have been adjusted to half normal saline with D5W to prevent hypoglycemia and potassium supplementation due to NG tube suctioning. The patient does not have any altered mental status changes, headache, seizure activity or changes in vision and appears to be asymptomatic from the sudden change in her sodium level. She is kept on serial metabolic monitoring as well as IV fluids to be adjusted accordingly to improve her dehydration and hypernatremia. 3. History of left lower extremity DVT on chronic Xarelto which has been held due to plans to go to the operating room. 3. History of COPD chronically on Advair and nebulizers. No acute exacerbation noted and without wheezing on examination. 4. History of coronary artery disease. Denies any acute chest pain, pressure, tightness, palpitations, lightheadedness or shortness of breath. 5. History of pacemaker placement due to sick sinus syndrome, appears to be stable. 6. Chronic kidney disease stage III. Currently with normal creatinine. Avoiding nephrotoxins and renally dosing all medications. Intake and output have been noted.
[2019-04-13 14:00] VITALS: BP 135/68
[2019-04-13] MEDS: LATANOPROST 0.005% OPHTH SOLN 2.5 ML OU SCH (20:44)
[2019-04-13 22:00] VITALS: BP 128/59
[2019-04-14] MEDS: HumaLOG INSULIN (NovoLOG) PER UNIT SC SCH ×4 (00:19→18:09)
[2019-04-14 02:00] VITALS: BP 126/55
[2019-04-14 06:00] VITALS: BP_SYST 115; BP_SYST 157; BP_DIAS 50; BP_DIAS 75
[2019-04-14] MEDS: ADVAIR HFA 230/21MCG INHALER INH SCH ×2 (07:58→20:27)
[2019-04-14 08:18] LABS: HEMATOCRIT 31.3 % (36.0-47.0); HEMOGLOBIN 9.9 g/dl (12.0-15.5); MEAN CORPUSCULAR HEMOGLOBIN 33.3 pg (27.0-33.0); MEAN CORPUSCULAR HGB CONC 31.6 g/dl (32.0-36.5); MEAN CORPUSCULAR VOLUME 105.4 fl (80.0-96.0); PLATELET COUNT, AUTOMATED 178 10^3/uL (150-450); RED BLOOD COUNT 2.97 10^6/uL (4.00-5.40); WHITE BLOOD COUNT 8.6 10^3/uL (4.0-10.0)
[2019-04-14 08:46] LABS: CALCIUM LEVEL 7.8 MG/DL (8.8-10.2); CREATININE FOR GFR 1.38 MG/DL (0.55-1.30); GLOMERULAR FILTRATION RATE 39.1 (>32); POTASSIUM SERUM 3.4 MEQ/L (3.5-5.1)
[2019-04-14] MEDS: PANTOPRAZOLE 40MG INJ (PROTONIX) (C9113) IV SCH (09:06)
[2019-04-14] MEDS: BRINZOLAMIDE 1 % OPHTH SUSP (AZOPT) 10ML OU SCH ×2 (09:06→20:46)
[2019-04-14] MEDS: POTASSIUM CHLORIDE 10 MEQ SR TABLET PO SCH (09:06)
[2019-04-14 10:00] VITALS: BP 135/68
[2019-04-14] MEDS: KCL 20MEQ IN D5W 1000ML 1,000 ML IV SCH (11:28)
[2019-04-14] MEDS ORDERED: TORSEMIDE 20 MG TAB PO SCH (11:45)
[2019-04-14] MEDS: TORSEMIDE 10 MG TABLET PO SCH (12:26)
[2019-04-14] MEDS: CALCITRIOL 0.25 MCG CAP (S0169) PO SCH (12:26)
[2019-04-14] MEDS: SPIRONOLACTONE 12.5MG PER 1/2 TABLET PO SCH (12:26)
[2019-04-14 13:57] VITALS: BP 120/58
--- NOTE | 2019-04-14 16:32 | IPN ---
DATE: 04/13/2019 The patient still continues to have significant discharge through the nasogastric tube. Output overnight was 780. She continues to have no flatus. Denied any vomiting at this time. She does have some abdominal discomfort but no abdominal distention. Afebrile overnight. Temperature 97, pulse 86, respiratory rate 18, blood pressure 135/68, 98% on room air. Generally, nasogastric tube in place. No jugular venous distention (JVD). Lungs are diminished. Heart: S1, S2, sinus rhythm. Abdomen is soft, nontender, nondistended. Extremities: No cyanosis or clubbing. CBC and metabolic panel have been reviewed. ASSESSMENT AND PLAN: This is an 83-year-old female with a past medical history significant for deep vein thrombosis (DVT) in left lower extremity, on chronic Xarelto, chronic obstructive pulmonary disease (COPD), coronary artery disease, pacer due to sick sinus, chronic kidney disease stage III, presented with small bowel obstruction, most likely secondary to adhesions, status post nasogastric (NG) tube placement. CURRENT ACUTE ISSUES: 1. Partial small bowel obstruction secondary to adhesions. Primary team managing conservatively with NG tube suctioning, was less than a liter out yesterday. KUB remains unchanged from prior x-ray. Patient was advanced in her diet today, per primary team. 2. Hypernatremia due to dehydration, nothing by mouth status. Fluids have been changed and continued. No mental status changes, any changes in vision or seizure activity despite significant hypernatremia and change in sodium level. Will continue with intravenous (IV) fluid hydration until the patient is optimized on her oral diet and will continue with serial metabolic panel. 3. History of left lower extremity DVT. On chronic Xarelto; initially held due to possible plan to go to surgery. At this time, may resume if no plans for surgery and patient is tolerating her diet and passing flatus. 4. History of chronic obstructive pulmonary disease. Chronically on Advair nebulizer. No acute exacerbation. 5. History of coronary artery disease. Denies any acute ischemic symptoms at this time. 6. History of pacer due to sick sinus syndrome. 7. Chronic kidney disease, at baseline creatinine.
[2019-04-14] MEDS: LATANOPROST 0.005% OPHTH SOLN 2.5 ML OU SCH (20:47)
[2019-04-14 22:00] VITALS: BP 131/67
[2019-04-15] VITALS (9 sets, daily range): BP systolic 96–123; BP diastolic 50–74; O2SAT 97
[2019-04-15] MEDS: HumaLOG INSULIN (NovoLOG) PER UNIT SC SCH ×5 (00:30→22:49)
[2019-04-15] MEDS: ALBUTEROL 90 MCG/ACT 8GM HFA INHALER INH PRN ×2 (04:56→09:23)
[2019-04-15] MEDS: ADVAIR HFA 230/21MCG INHALER INH SCH ×2 (07:32→22:34)
[2019-04-15] MEDS: IPRATROPIUM 0.5MG/ALBUTEROL 2.5MG INH SOL UD 3ML (DUONEB)(J7620) NEB SCH ×4 (07:32→22:55)
[2019-04-15] MEDS: RIVAROXABAN 15 MG TAB (XARELTO) PO SCH (08:25)
[2019-04-15] MEDS: ONDANSETRON 4MG/2ML VIAL (J2405) IV PRN (08:25)
--- NOTE | 2019-04-15 10:00 | REP ---
HISTORY: Dyspnea. COMPARISON: Multiple, the latest 04/12/2019. The technique utilized in obtaining the radiograph has magnified the cardiac silhouette and accentuated the interstitial markings. There is no change from 04/12/2019. There are no new abnormal opacities. There are fibrotic changes with basilar predominance, status quo. There is no change in the pacemaker. There is no change in the osseous structures. IMPRESSION: Stable appearing chronic changes. Electronically Signed by Feliz Chester DO 04/15/2019 09:19 A
--- NOTE | 2019-04-15 10:01 | IPN ---
DATE: 04/14/2019 HISTORY: The patient was admitted on April 09 with abdominal pain, nausea, vomiting and a CT scan consistent with intestinal obstruction. She has been monitored with a nasogastric tube in place and has been receiving IV hydration. Yesterday she had a bowel movement and by her reports had some flatus. Her abdomen was soft and nondistended and she had had diminished output from her NG tube. Her NG tube was clamped and she was started on clear liquids. She has done well with this. She is taking clear liquids without restriction. Her urine output is good and she has had additional bowel movements and flatus. Vital signs show that she has been afebrile with a pulse in the 60s to 80s and good blood pressure. Intake and output shows that yesterday she had 3800 in with 2000 out with most of that representing urine output. PHYSICAL EXAMINATION: The patient is sitting up in a chair with her NG tube clamped. She is alert and appears comfortable. Heart exam shows a regular rhythm. The abdomen is soft with positive bowel sounds. She has no significant tenderness. LABORATORY STUDIES: The patient has a white count of 9, hemoglobin 10, hematocrit of 31 and platelet count of 178,000. Chemistry profile shows a sodium of 141, potassium 3.4, chloride 109, CO2 of 25, BUN of 16, creatinine 1.38 and a glucose of 85. IMPRESSION: The patient is resolving her bowel obstruction nicely. She has had several bowel movements and is passing flatus and her pain has resolved. PLAN: The patient's NG tube is removed. She will be advanced from clear liquids to full liquids, and if she tolerates the full liquids until this evening she will be advanced to a regular diet. I will reorder her oral diuretics with spironolactone and torsemide and also order her Xarelto to restart tomorrow. If all goes well she should be ready for discharge tomorrow.
--- NOTE | 2019-04-15 10:01 | IPN ---
DATE: 04/11/2019 This is a late entry of a progress note for April 11. HISTORY: The patient was admitted on April 09 with abdominal pain, nausea and vomiting and a CT scan consistent with a bowel obstruction. She has been treated with an NG tube and IV hydration. The patient reports that she continues to have some occasional crampy pains. She denies any flatus and has not had a bowel movement. Vital signs show that she has been afebrile over the past 24 hours. Her pulse is generally been in the 70s and her blood pressure is good. Intake and output shows 1700 in yesterday with 1500 out. She had a liter out of her nasogastric tube. PHYSICAL EXAMINATION: The patient is lying quietly in the hospital bed. She is alert and oriented. Skin is warm and dry. Heart exam shows a regular rhythm. The lungs are clear. The abdomen is mildly obese. She has some faint bowel sounds. On palpation she still has some fullness in the left midabdomen with some tenderness beginning about at the umbilicus and extending to the left somewhat. The right side of the abdomen is soft and without any significant tenderness. The patient has no new laboratory studies. IMPRESSION: The patient continues to have some intermittent abdominal cramping and has not had any flatus or bowel movement since admitted about approximately 48 hours ago. PLAN: I advised the patient that I think she is getting to a point where we will want to consider surgical intervention. I counseled her that I am going out of town and that Dr. Kan will be covering for me until I return on the morning of April 13. I advised her that I will speak with him and let him know about my concerns that surgical intervention may be appropriate at this point. I will plan on seeing her back on again on the .
--- NOTE | 2019-04-15 10:01 | IPN ---
DATE: 04/13/2019 HISTORY: Patient was admitted on 04/09/2019 with nausea and vomiting and abdominal cramping with a CT consistent with a small bowel obstruction. Patient was given a dose of MiraLAX by my partner who was covering yesterday. Patient reports that this morning she had a bowel movement and she believes some flatus. She denies any significant abdominal cramping or pain. Vital signs show that she has been afebrile over the past 24 hours. Her pulse has been in the 70s and 80s. Blood pressure is good with a normal room air oxygen saturation. Intake and output show that yesterday she had 1800 in with 1100 out. Her nasogastric (NG) tube had 780 of output. PHYSICAL EXAM: Patient is lying quietly in the hospital bed. She is alert, oriented and appears comfortable. Skin is warm and dry. Heart exam shows a regular rate and rhythm. The abdomen is flat. She has bowel sounds present in all four quadrants. The abdomen is soft throughout without any guarding. There is a single small area of tenderness just at the left side of the umbilicus in a fairly focal area. The fullness that had been present in the left side of the abdomen seems diminished. Laboratory studies show white count of 8, hemoglobin of 10, hematocrit 31, and a platelet count of 179,000. Differential count shows 68% neutrophils, 20% lymphocytes, and 11% monocytes. Chemistry profile shows a sodium of 148, potassium 3.2, chloride 114, CO2 of 27, BUN of 20, creatinine 1.25, and a glucose of 130. Fingerstick blood sugars have ranged between 109-164. IMPRESSION: Patient has had a bowel movement this morning with flatus and denies any abdominal pain. The abdomen is soft and nontender all consistent with a resolving small bowel obstruction. PLAN: Patient's NG tube will be clamped. I will start her on clear liquids. If she develops nausea or vomiting or fullness or increasing abdominal pain, we will put her nasogastric tube back to low intermittent suction. If she tolerates the liquids, then we will end up removing her NG tube and advancing her diet.
[2019-04-15] MEDS: SPIRONOLACTONE 12.5MG PER 1/2 TABLET PO SCH (10:18)
[2019-04-15] MEDS: POTASSIUM CHLORIDE 10 MEQ SR TABLET PO SCH (10:18)
[2019-04-15] MEDS: TORSEMIDE 10 MG TABLET PO SCH (10:19)
[2019-04-15] MEDS: CALCITRIOL 0.25 MCG CAP (S0169) PO SCH (10:19)
[2019-04-15] MEDS: BRINZOLAMIDE 1 % OPHTH SUSP (AZOPT) 10ML OU SCH ×2 (10:20→21:44)
[2019-04-15] MEDS ORDERED: LEVALBUTEROL 1.25 MG/0.5 ML CONCENTRATE NEB NEB ONE (12:00)
[2019-04-15] MEDS ORDERED: LEVALBUTEROL 1.25 MG/0.5 ML CONCENTRATE NEB INH PRN (12:00)
[2019-04-15] MEDS ORDERED: POTASSIUM CHLORIDE 10 MEQ SR TABLET PO ONE (12:15)
--- NOTE | 2019-04-15 12:50 | IPN ---
DATE: 04/14/2019 The patient is tolerating her diet well. IV fluids have been discontinued. She has been resumed on her home dose of Xarelto for history of deep venous thrombosis (DVT), Demadex for history of congestive heart failure and spironolactone. She denies any nausea, vomiting. Has had two bowel movements this morning. Vitals: Temperature 97.6, pulse 82, respiratory rate 18, blood pressure 120/58, 94% on room air. Generally: Nasogastric tube (NG) in place. Output overnight was 650. Currently clamped, eating her breakfast with no difficulty. No jugular venous distention. HEENT: no cervical LAD, thyromegaly, or JVD Lungs are diminished breaths with wheezing Heart: S1S2 RRR Abdomen is soft, nontender. Positive bowel sounds. Extremities: No cyanosis or clubbing. Laboratory data and imaging studies have been reviewed. ASSESSMENT/PLAN: 83-year-old with history of deep venous thrombosis (DVT), chronic obstructive pulmonary disease (COPD), coronary artery disease (CAD), sick sinus with pacemaker placement, chronic kidney disease (CKD) III who presented with partial small bowel obstruction due to adhesions, status post NG tube placement with suctioning, currently tolerating an oral diet and resumed back on her home medications. Partial small bowel obstruction secondary to adhesions most likely responding to conservative management, currently advanced on her diet by primary team. She is currently resumed back on her Xarelto for history of deep venous thrombosis off of the IV fluids. COPD: on nebs .may need steroids if worsens clinically Hypernatremia: Due to nothing by mouth status and dehydration status post IV fluid. History of left lower extremity deep venous thrombosis resumed back on her Xarelto. Chronic obstructive pulmonary disease (COPD): On inhalers. History of coronary artery disease (CAD): No acute ischemic syndrome. Pacemaker due to sick sinus. Chronic kidney disease: At baseline creatinine. MTDD
[2019-04-15 13:41] LABS: CALCIUM LEVEL 7.7 MG/DL (8.8-10.2); CREATININE FOR GFR 2.12 MG/DL (0.55-1.30); GLOMERULAR FILTRATION RATE 23.8 (>32); POTASSIUM SERUM 3.9 MEQ/L (3.5-5.1)
[2019-04-15] MEDS ORDERED: methylPREDNISolone INJ 125 MG/2 ML VIAL (J2930) IV ONE (14:00)
[2019-04-15] MEDS: LEVALBUTEROL 1.25 MG/0.5 ML CONCENTRATE NEB INH SCH ×2 (15:01→22:33)
--- NOTE | 2019-04-15 15:50 | IPNPDOC ---
Subjective General Date/Time Seen The patient was seen on 04/15/19 at 15:44. Subject Chief Complaint/History The patient is a 83-year-old female admitted with a reason for visit of Small Bowel Obstruction Due To Adhesion. Patient seen sleeping in her room, relatively comfortable. She reports that she threw up what she ate yesterday evening and she did not take a lot of the [place] cheese. No vomiting since. She is not eating that much afraid that she will throw up again but she denies any nausea or abdominal discomfort. She reports she is passing flatus intermittently. She is having loose bowel movements. Current Medications Current Medications Current Medications Medications (Trade) Dose Ordered Sig/Susan Route PRN Reason Start Time Stop Time Status Last Admin Dose Admin Acetaminophen (Tylenol Tab) 650 mg Q4HP PRN PO MILD PAIN or TEMP > 101 04/09/19 10:00 Albuterol Sulfate (Proventil, Ventolin Hfa) 2 puff Q4H PRN INH SHORTNESS OF BREATH 04/09/19 10:00 04/15/19 09:23 Albuterol/ Ipratropium (Duoneb (Ipr 0.5mg/Alb 2.5mg)) 3 ml RQ6H NEB 04/15/19 08:00 Brinzolamide (Azopt) 1 drop BID OU 04/09/19 21:00 04/15/19 10:20 Brinzolamide (Azopt) 1 drop BID OU 04/10/19 09:00 04/10/19 09:00 DC Calcitriol (Rocaltrol) 0.25 mcg DAILY PO 04/14/19 09:00 04/15/19 10:19 Home Med (Med Rec Complete!) ASDIRECTED XX 04/09/19 08:15 04/09/19 08:15 DC Insulin Human Lispro (HumaLOG INSULIN) SEE PROTOCOL TABLE Q6H SC 04/09/19 12:00 04/15/19 06:30 Ketorolac Tromethamine (ToRADol) 15 mg Q6HP PRN IV MILD/MODERATE PAIN (PS 1-7) 04/09/19 10:00 04/14/19 09:59 DC Lactated Ringer's 1,000 ml @ 75 mls/hr [id number] IV 04/09/19 09:49 04/12/19 11:07 DC 04/12/19 03:51 Latanoprost (Xalatan 0.005% Op Soln) 1 drop QHS OU 04/09/19 21:00 04/14/19 20:47 Levalbuterol HCl (Xopenex Neb) 1.25 mg Q1HP PRN INH SHORTNESS OF BREATH 04/15/19 12:00 Levalbuterol HCl (Xopenex Neb) 1.25 mg RQID INH 04/15/19 16:00 04/15/19 15:01 Morphine Sulfate (Morphine Sulfate Inj) 2 mg Q2HP PRN IV SEVERE PAIN (PS 8-10) 04/09/19 10:00 04/14/19 11:40 DC Morphine Sulfate (Morphine Sulfate Inj) 4 mg Q15M PRN IV CHEST PAIN 04/09/19 04:45 04/09/19 09:59 DC 04/09/19 05:05 Ondansetron HCl (ZOFRAN INJection) 4 mg Q6HP PRN IV NAUSEA OR VOMITING 04/09/19 10:00 04/15/19 08:25 Pantoprazole Sodium (Protonix) 40 mg DAILY IV 04/09/19 09:00 04/14/19 11:40 DC 04/14/19 09:06 Patient Own Medication (Patient'S Own Med) Lumigan 1 drop OU QHS QHS OU 04/10/19 21:00 04/10/19 21:00 DC Potassium Chloride/Dextrose 1,000 ml @ 75 mls/hr [id number] IV 04/13/19 03:30 04/14/19 11:40 DC 04/14/19 11:28 Potassium Chloride/Dextrose/ Sod Cl 1,000 ml @ 100 mls/hr Q10H IV 04/12/19 11:15 04/12/19 20:52 DC 04/12/19 20:24 Potassium Chloride/Dextrose/ Sod Cl 1,000 ml @ 150 mls/hr Q6H40M IV 04/12/19 21:00 04/13/19 03:29 DC Potassium Chloride (Micro-K Extencaps) 20 meq DAILY PO 04/13/19 09:00 04/15/19 10:18 Prednisone (Deltasone) 40 mg BID PO 04/15/19 21:00 Rivaroxaban (Xarelto) 15 mg DAILY@0800 PO 04/15/19 08:00 04/15/19 08:25 Salmeterol Xinafoate/ Fluticasone (Advair Hfa 230/ 21) 1 puff BID INH 04/09/19 09:00 04/15/19 07:32 Spironolactone (Aldactone) 12.5 mg DAILY PO 04/14/19 09:00 04/15/19 10:18 Torsemide (Demadex) 20 mg DAILY PO 04/14/19 11:45 UNV Torsemide (Demadex) 30 mg DAILY PO 04/14/19 11:45 04/15/19 10:19 Allergies Coded Allergies: carvedilol (Verified Allergy, Severe, difficulty breathing, 04/09/19) pitavastatin (Verified Allergy, Severe, anaphylaxis, 04/09/19) dexamethasone (Verified Allergy, Intermediate, eyes burn, 04/09/19) dorzolamide (Verified Allergy, Intermediate, eyes burn, 04/09/19) neomycin (Verified Allergy, Intermediate, eyes burn, 04/09/19) polymyxin B (Verified Allergy, Intermediate, eyes burn, 04/09/19) timolol (Verified Allergy, Intermediate, eyes burn, 04/09/19) Penicillins (Verified Allergy, Mild, rash, 04/09/19) Quinolones (Verified Allergy, Mild, rash, 04/09/19) DG Inhibitors (Verified Adverse Reaction, Intermediate, kidney problems / cough, 04/09/19) Eowfgkz-Vqe-Qds Reductase Inhibitor (Verified Adverse Reaction, Mild, myalgia, 04/09/19) colesevelam (Verified Adverse Reaction, Mild, myalgia, 04/09/19) ezetimibe (Verified Adverse Reaction, Mild, myalgia, 04/09/19) losartan (Verified Adverse Reaction, Mild, nausea / no appetite, 04/09/19) Objective Physical Examination Examination GENERAL APPEARANCE: She looks comfortable in the room. LUNGS: Clear to auscultation bilaterally. No wheezing appreciated. HEART: No chest wall abnormalities. Regular rate and rhythm with no murmurs appreciated. ABDOMEN: Abdomen is relatively flat, soft, nondistended. No abdominal tenderness on palpation. EXTREMITIES: Extremities have no deformities. No edema identified. Vital Signs Vital Signs Date Time Temp Pulse Resp B/P (MAP) Pulse Ox O2 Delivery O2 Flow Rate FiO2 04/15/19 14:00 97.8 89 27 106/57 (73) 94 3.0 04/09/19 11:15 Nasal Cannula I&Os I&O- Last 24 Hours up to 6 AM 04/15/19 05:59 Intake Total 1632 ml Output Total 0 ml Balance 1632 ml Laboratory Data Labs 24H Laboratory Tests 2 04/14/19 18:00: Bedside Glucose (Misc Panel) 133H 04/14/19 20:21: Bedside Glucose (Misc Panel) 128H 04/15/19 00:02: Bedside Glucose (Misc Panel) 104 04/15/19 06:16: Bedside Glucose (Misc Panel) 151H 04/15/19 11:29: Bedside Glucose (Misc Panel) 137H 04/15/19 12:54: Anion Gap 10, Glomerular Filtration Rate 23.8L, Blood Urea Nitrogen 20H, Creatinine 2.12#H, Sodium Level 139, Potassium Level 3.9, Chloride Level 109H, Carbon Dioxide Level 20L, Calcium Level 7.7L, PX-[id number]-[id number]-Type Natriuretic Peptide 7127H CBC/BMP Laboratory Tests 04/15/19 12:54 Calcium Level 7.7 L Microbiology Microbiology 04/09/19 Urine Culture - Final, Complete Klebsiella Pneumoniae Impression Small bowel obstruction Her abdomen is relatively flat and nondistended despite her reporting that she threw up last night. She is also been having postobstructive diarrhea. She so far has had 2 bowel movements today. Encouraged her to try and eat and we will continue to monitor for now. If she continues to throw up may need to reevaluate with an abdominal x-ray or CT as her examination does not correlate with the vomiting. Plan / VTE VTE Prophylaxis Ordered?: Yes CHAPARRITA JONES MD Apr 15, 2019 15:50
[2019-04-15] MEDS: predniSONE 20 MG TAB PO SCH (21:43)
[2019-04-15] MEDS: LATANOPROST 0.005% OPHTH SOLN 2.5 ML OU SCH (21:44)
[2019-04-16] MEDS ORDERED: MAALOX 30 ML SUSP *UDC PO ONE (05:00)
[2019-04-16 06:00] VITALS: BP 123/62
[2019-04-16] MEDS: LEVALBUTEROL 1.25 MG/0.5 ML CONCENTRATE NEB INH SCH ×4 (07:33→20:00)
[2019-04-16] MEDS: ADVAIR HFA 230/21MCG INHALER INH SCH ×2 (07:33→20:26)
[2019-04-16] MEDS: IPRATROPIUM 0.5MG/ALBUTEROL 2.5MG INH SOL UD 3ML (DUONEB)(J7620) NEB SCH ×3 (07:33→20:00)
[2019-04-16] MEDS: TORSEMIDE 10 MG TABLET PO SCH (08:26)
[2019-04-16] MEDS: CALCITRIOL 0.25 MCG CAP (S0169) PO SCH (08:27)
[2019-04-16] MEDS: POTASSIUM CHLORIDE 10 MEQ SR TABLET PO SCH (08:27)
[2019-04-16] MEDS: BRINZOLAMIDE 1 % OPHTH SUSP (AZOPT) 10ML OU SCH ×2 (08:27→20:41)
[2019-04-16] MEDS: SPIRONOLACTONE 12.5MG PER 1/2 TABLET PO SCH (08:27)
[2019-04-16] MEDS: RIVAROXABAN 15 MG TAB (XARELTO) PO SCH (08:27)
[2019-04-16] MEDS: predniSONE 20 MG TAB PO SCH ×2 (08:27→20:41)
[2019-04-16] MEDS ORDERED: PANTOPRAZOLE 40MG TAB (PROTONIX) PO SCH (09:00)
[2019-04-16 10:00] VITALS: BP 129/62
--- NOTE | 2019-04-16 10:01 | IPNPDOC ---
Subjective General Date/Time Seen The patient was seen on 04/16/19 at 10:01. Subject Chief Complaint/History The patient is a 83-year-old female admitted with a reason for visit of Small Bowel Obstruction Due To Adhesion. sitting up on a chair, looks much more comfortable today. She reports she feels better today. Still with O2 Current Medications Current Medications Current Medications Medications (Trade) Dose Ordered Sig/Susan Route PRN Reason Start Time Stop Time Status Last Admin Dose Admin Acetaminophen (Tylenol Tab) 650 mg Q4HP PRN PO MILD PAIN or TEMP > 101 04/09/19 10:00 Albuterol Sulfate (Proventil, Ventolin Hfa) 2 puff Q4H PRN INH SHORTNESS OF BREATH 04/09/19 10:00 04/15/19 09:23 Albuterol/ Ipratropium (Duoneb (Ipr 0.5mg/Alb 2.5mg)) 3 ml RQ6H NEB 04/15/19 08:00 Brinzolamide (Azopt) 1 drop BID OU 04/09/19 21:00 04/16/19 08:27 Brinzolamide (Azopt) 1 drop BID OU 04/10/19 09:00 04/10/19 09:00 DC Calcitriol (Rocaltrol) 0.25 mcg DAILY PO 04/14/19 09:00 04/16/19 08:27 Home Med (Med Rec Complete!) ASDIRECTED XX 04/09/19 08:15 04/09/19 08:15 DC Insulin Human Lispro (HumaLOG INSULIN) SEE PROTOCOL TABLE Q6H SC 04/09/19 12:00 04/15/19 21:47 DC 04/15/19 18:39 Insulin Human Lispro (HumaLOG INSULIN) See Protocol Table QHS SC 04/15/19 21:00 04/15/19 22:49 Ketorolac Tromethamine (ToRADol) 15 mg Q6HP PRN IV MILD/MODERATE PAIN (PS 1-7) 04/09/19 10:00 04/14/19 09:59 DC Lactated Ringer's 1,000 ml @ 75 mls/hr [id number] IV 04/09/19 09:49 04/12/19 11:07 DC 04/12/19 03:51 Latanoprost (Xalatan 0.005% Op Soln) 1 drop QHS OU 04/09/19 21:00 04/15/19 21:44 Levalbuterol HCl (Xopenex Neb) 1.25 mg Q1HP PRN INH SHORTNESS OF BREATH 04/15/19 12:00 04/16/19 09:04 Levalbuterol HCl (Xopenex Neb) 1.25 mg RQID INH 04/15/19 16:00 04/15/19 22:33 Morphine Sulfate (Morphine Sulfate Inj) 2 mg Q2HP PRN IV SEVERE PAIN (PS 8-10) 04/09/19 10:00 04/14/19 11:40 DC Morphine Sulfate (Morphine Sulfate Inj) 4 mg Q15M PRN IV CHEST PAIN 04/09/19 04:45 04/09/19 09:59 DC 04/09/19 05:05 Ondansetron HCl (ZOFRAN INJection) 4 mg Q6HP PRN IV NAUSEA OR VOMITING 04/09/19 10:00 04/15/19 08:25 Pantoprazole Sodium (Protonix) 40 mg DAILY IV 04/09/19 09:00 04/14/19 11:40 DC 04/14/19 09:06 Patient Own Medication (Patient'S Own Med) Lumigan 1 drop OU QHS QHS OU 04/10/19 21:00 04/10/19 21:00 DC Potassium Chloride/Dextrose 1,000 ml @ 75 mls/hr [id number] IV 04/13/19 03:30 04/14/19 11:40 DC 04/14/19 11:28 Potassium Chloride/Dextrose/ Sod Cl 1,000 ml @ 100 mls/hr Q10H IV 04/12/19 11:15 04/12/19 20:52 DC 04/12/19 20:24 Potassium Chloride/Dextrose/ Sod Cl 1,000 ml @ 150 mls/hr Q6H40M IV 04/12/19 21:00 04/13/19 03:29 DC Potassium Chloride (Micro-K Extencaps) 20 meq DAILY PO 04/13/19 09:00 04/16/19 08:27 Prednisone (Deltasone) 40 mg BID PO 04/15/19 21:00 04/16/19 08:27 Rivaroxaban (Xarelto) 15 mg DAILY@0800 PO 04/15/19 08:00 04/16/19 08:27 Salmeterol Xinafoate/ Fluticasone (Advair Hfa 230/ 21) 1 puff BID INH 04/09/19 09:00 04/16/19 07:33 Spironolactone (Aldactone) 12.5 mg DAILY PO 04/14/19 09:00 04/16/19 08:27 Torsemide (Demadex) 20 mg DAILY PO 04/14/19 11:45 UNV Torsemide (Demadex) 30 mg DAILY PO 04/14/19 11:45 04/16/19 08:26 Allergies Coded Allergies: carvedilol (Verified Allergy, Severe, difficulty breathing, 04/09/19) pitavastatin (Verified Allergy, Severe, anaphylaxis, 04/09/19) dexamethasone (Verified Allergy, Intermediate, eyes burn, 04/09/19) dorzolamide (Verified Allergy, Intermediate, eyes burn, 04/09/19) neomycin (Verified Allergy, Intermediate, eyes burn, 04/09/19) polymyxin B (Verified Allergy, Intermediate, eyes burn, 04/09/19) timolol (Verified Allergy, Intermediate, eyes burn, 04/09/19) Penicillins (Verified Allergy, Mild, rash, 04/09/19) Quinolones (Verified Allergy, Mild, rash, 04/09/19) DG Inhibitors (Verified Adverse Reaction, Intermediate, kidney problems / cough, 04/09/19) Gkpzsic-Lkj-Spm Reductase Inhibitor (Verified Adverse Reaction, Mild, myalgia, 04/09/19) colesevelam (Verified Adverse Reaction, Mild, myalgia, 04/09/19) ezetimibe (Verified Adverse Reaction, Mild, myalgia, 04/09/19) losartan (Verified Adverse Reaction, Mild, nausea / no appetite, 04/09/19) Objective Physical Examination Examination GENERAL APPEARANCE:comfortable. SKIN: Warm and moist. LUNGS: Clear to auscultation bilaterally. No wheezing appreciated. HEART: No chest wall abnormalities. Regular rate and rhythm with no murmurs appreciated. ABDOMEN: Abdomen is obese, soft, nondistended. nontender on palpation. EXTREMITIES: no edema. Vital Signs Vital Signs Date Time Temp Pulse Resp B/P (MAP) Pulse Ox O2 Delivery O2 Flow Rate FiO2 04/16/19 06:00 96.6 78 22 123/62 (82) 92 2.0 04/15/19 22:34 Nasal Cannula I&Os I&O- Last 24 Hours up to 6 AM 04/16/19 06:00 Intake Total 1600 ml Output Total 0 ml Balance 1600 ml Laboratory Data Labs 24H Laboratory Tests 2 04/15/19 11:29: Bedside Glucose (Misc Panel) 137H 04/15/19 12:54: Anion Gap 10, Glomerular Filtration Rate 23.8L, Blood Urea Nitrogen 20H, Creatinine 2.12#H, Sodium Level 139, Potassium Level 3.9, Chloride Level 109H, Carbon Dioxide Level 20L, Calcium Level 7.7L, TV-Ljr-[id number]-Type Natriuretic Peptide 7127H 04/15/19 16:53: Bedside Glucose (Misc Panel) 255H 04/15/19 20:48: Bedside Glucose (Misc Panel) 327H CBC/BMP Laboratory Tests 04/15/19 12:54 Calcium Level 7.7 L Microbiology Microbiology 04/09/19 Urine Culture - Final, Complete Klebsiella Pneumoniae Impression Small bowel obstruction appetite improving, still benign, flat abdomen. She reports dyspepic symptoms, at home she is on a PPI, will resume PPI. Still on O2, will try to wean this today Plan / VTE VTE Prophylaxis Ordered?: Yes CHAPARRITA JONES MD Apr 16, 2019 10:01
[2019-04-16 10:49] LABS: HEMATOCRIT 33.1 % (36.0-47.0); HEMOGLOBIN 10.5 g/dl (12.0-15.5); MEAN CORPUSCULAR HEMOGLOBIN 32.6 pg (27.0-33.0); MEAN CORPUSCULAR HGB CONC 31.7 g/dl (32.0-36.5); MEAN CORPUSCULAR VOLUME 102.8 fl (80.0-96.0); PLATELET COUNT, AUTOMATED 222 10^3/uL (150-450); RED BLOOD COUNT 3.22 10^6/uL (4.00-5.40); WHITE BLOOD COUNT 15.5 10^3/uL (4.0-10.0)
[2019-04-16 11:16] LABS: BLOOD UREA NITROGEN 39 MG/DL (7-18); CALCIUM LEVEL 8.6 MG/DL (8.8-10.2); CARBON DIOXIDE LEVEL 22 MEQ/L (21-32); CHLORIDE LEVEL 102 MEQ/L (98-107); CK-MB VALUE MASS 1.9 NG/ML (<3.6); CPK CREATINE PHOSPHOKINASE 38 U/L (26-192); CREATININE FOR GFR 2.68 MG/DL (0.55-1.30); GLOMERULAR FILTRATION RATE 18.2 (>32); GLUCOSE, FASTING 385 MG/DL (70-100); NT-PRO BNP 5312 PG/ML (<450); POTASSIUM SERUM 4.5 MEQ/L (3.5-5.1); SODIUM LEVEL 133 MEQ/L (136-145); TROPONIN I < 0.02 NG/ML (< 0.10)
[2019-04-16] MEDS ORDERED: NS 500 ML IV ONE (12:15)
[2019-04-16] MEDS ORDERED: methylPREDNISolone INJ 125 MG/2 ML VIAL (J2930) IV ONE (12:30)
[2019-04-16] MEDS ORDERED: DEXTROSE 50% 50 ML SYRINGE IV PRN (12:45)
[2019-04-16] MEDS ORDERED: GLUCAGON FOR INJ 1 MG VIAL (J1610) SC PRN (12:45)
[2019-04-16] MEDS ORDERED: GLUCOSE 4 GM CHEW TABLET PO PRN (12:45)
--- NOTE | 2019-04-16 12:46 | IPN ---
DATE OF SERVICE: 04/15/2019 Patient became much more short of breath. She is status post intravenous (IV) fluids due to nothing by mouth status for partial bowel obstruction. Chest x-ray, however did not show any sara pulmonary edema. She is resumed back on her home dose of diuretics. This morning patient denies any chest pain, pressure or tightness, lightheadedness or dizziness. She is sleeping comfortably, one pillow, without any paroxysmal nocturnal dyspnea (PND) or orthopnea. Repeat chest x-ray shows sara pulmonary edema or vascular congestion chronic changes. Patient says she feels some improvement when she uses her ProAir. She is currently being given nebulizer treatments for comfort. Vital signs: Temperature 97.8, pulse 89, respiratory 30, blood pressure 106/51, 94% on 3 liters nasal cannula. Generally, patient is awake, alert, oriented times three, answering questions appropriately. She is sleeping comfortably. Nasogastric (NG) tube has been removed. Neck is supple, thick, unable to assess for jugular venous distention. There is no thyromegaly, cervical lymphadenopathy. There is no use of respiratory accessory muscles. She has no conversational dyspnea. Lungs diminished bilateral faint wheezing. No use of respiratory accessory muscles. Heart: S1, S2, sinus rhythm. Abdomen is soft, nontender, nondistended. Positive bowel sounds times four quadrants. Extremities: No cyanosis or clubbing. Laboratory data, imaging studies, microbiology have been reviewed. ASSESSMENT AND PLAN: This is an 83-year-old female, history of deep venous thrombosis (DVT), chronic obstructive pulmonary disease (COPD), CAD, sick sinus with pacemaker placement, chronic kidney disease (CKD) III, presented with partial small bowel obstruction due to adhesions, status post NG tube with suctioning, tolerating an oral diet, resumed back on her home medications. Acute issues are: 1. Partial small bowel obstruction most likely secondary to adhesions. Responded to conservative management and then advanced her diet, which she is tolerating well. She has had good bowel movements. She is resumed back on her Xarelto for a history of DVT. Off of the IV fluids. 2. Hypernatremia, resolving due to nothing by mouth status and dehydration, status post nothing by mouth status for partial small bowel osbtruction. 3. COPD exacerbation with active wheezing. Given Solu-Medrol this morning, nebulizer treatments and continued on lower doses of prednisone as outpatient to complete. 4. History of DVT. Resumed back on Xarelto. 5. History of CAD. No acute ischemic symptoms. Pacemaker due to sick sinus syndrome. 6. Chronic kidney disease. At baseline creatine. MTDD
--- NOTE | 2019-04-16 13:00 | REP ---
HISTORY: Dyspnea. COMPARISON: Yesterday, 04/15/2019. The technique utilized in obtaining the radiograph has magnified the cardiac silhouette and accentuated the interstitial markings. Cardiomediastinal silhouette and pacemaker device are unchanged. There are chronic lung base changes, status quo. A developing opacity is possible in the right lower lobe medially. This is difficult to evaluate with portable radiography. There is no change in the osseous structures. IMPRESSION: Possible right lower lobe subsegmental atelectatic change versus early pneumonia. PA and lateral views of the chest are recommended. The exam is otherwise unchanged from the prior exam. Electronically Signed by Feliz Chester DO 04/16/2019 01:43 P
[2019-04-16] MEDS: HumaLOG INSULIN (NovoLOG) PER UNIT SC SCH ×3 (13:08→21:03)
[2019-04-16 14:00] VITALS: BP 120/65
[2019-04-16] MEDS ORDERED: FAMOTIDINE IV BAG 20 MG in APPROPRIATE DILUENT 1 EA IV ONE (16:00)
[2019-04-16] MEDS ORDERED: GI COCKTAIL 50ML BTL(HYOSCYAMINE/MAALOX/LIDOCAINE VISCOUS)(1:3:1) PO ONE (17:00)
[2019-04-16 18:00] VITALS: BP 115/56
--- NOTE | 2019-04-16 19:41 | REP ---
REASON: Renal failure. Right kidney 7.4 x 4.0 x 4.3 cm and left 9.7 x 3.9 x 6.1 cm. There is bilateral renal cortical thinning with increased renal cortical echoes and decreased cortical medullary differentiation. There are no cystic or solid masses. There is no hydronephrosis. IMPRESSION:Chronic renal changes as described above. Electronically Signed by Feliz Chester DO 04/17/2019 10:01 A
[2019-04-16] MEDS: LATANOPROST 0.005% OPHTH SOLN 2.5 ML OU SCH (20:41)
[2019-04-16] MEDS ORDERED: HumaLOG INSULIN (NovoLOG) PER UNIT SC SCH (21:00)
[2019-04-16 22:00] VITALS: BP 109/56
[2019-04-17] VITALS (7 sets, daily range): BP systolic 99–127; BP diastolic 51–89
[2019-04-17] MEDS: LEVALBUTEROL 1.25 MG/0.5 ML CONCENTRATE NEB INH SCH ×6 (00:11→20:00)
[2019-04-17] MEDS: ONDANSETRON 4MG/2ML VIAL (J2405) IV PRN (00:23)
[2019-04-17] MEDS ORDERED: NS 1,000 ML IV SCH (01:22)
[2019-04-17] MEDS: IPRATROPIUM 0.5MG/ALBUTEROL 2.5MG INH SOL UD 3ML (DUONEB)(J7620) NEB SCH ×4 (01:24→20:00)
[2019-04-17 01:40] LABS: HEMATOCRIT 28.7 % (36.0-47.0); HEMOGLOBIN 9.6 g/dl (12.0-15.5); MEAN CORPUSCULAR HEMOGLOBIN 33.6 pg (27.0-33.0); MEAN CORPUSCULAR HGB CONC 33.4 g/dl (32.0-36.5); MEAN CORPUSCULAR VOLUME 100.3 fl (80.0-96.0); PLATELET COUNT, AUTOMATED 250 10^3/uL (150-450); RED BLOOD COUNT 2.86 10^6/uL (4.00-5.40); WHITE BLOOD COUNT 14.7 10^3/uL (4.0-10.0)
--- NOTE | 2019-04-17 01:42 | IPNPDOC ---
Text Note Date of Service The patient was seen on 04/17/19. NOTE RR was called at approx 1:11 am bc of hematamesis The pt reported having several episodes since midnight. Per d/w her RN she was admitted for partial SBO which was managed conservatively She denies recently seeing GI but has seen in the past. She denies abd pain. 117/59, HR 98, RR 18, O2 92% on 2L GEN: NAD HEENT: NC in place, MMM &P LUNGS: coarse expiratory rhonchi ABD: hypoactive BS/ soft and NT on palpation #Hematamesis -possibly 2/2 gastritis in the setting of PPI use Plan: telemetry / f/u CBC, CMP, Coags / switch PPI from PO daily to IV BID / NPO w NS @ 60ml/H / f/u KUB / stop xarelto / pending blood work and KUB will consider Gen Surg consult if SBO reoccured vs GI consults for EGD CC time 10 min VS,Fishbone, I+O VS, Fishbone, I+O Laboratory Tests 04/16/19 10:38 Red Blood Count 3.22 L, Mean Corpuscular Volume 102.8 H, Mean Corpuscular Hemoglobin 32.6, Mean Corpuscular Hemoglobin Concent 31.7 L, Red Cell Distribution Width 13.5, Calcium Level 8.6 L, Total Creatine Kinase 38 Vital Signs Date Time Temp Pulse Resp B/P (MAP) Pulse Ox O2 Delivery O2 Flow Rate FiO2 04/16/19 22:00 98.6 92 20 109/56 (73) 93 04/16/19 14:00 2.0 04/15/19 22:34 Nasal Cannula I&O- Last 24 Hours up to 6 AM 04/17/19 05:59 Intake Total 2000 ml Output Total 264 ml Balance 1736 ml OZZIE SANCHEZ MD Apr 17, 2019 01:42
[2019-04-17 01:51] LABS: INR 1.36; PROTHROMBIN TIME 16.5 SECONDS (11.8-14.0)
[2019-04-17 02:03] LABS: ALBUMIN 1.9 GM/DL (3.2-5.2); BILIRUBIN,TOTAL 0.2 MG/DL (0.2-1.0); CALCIUM LEVEL 8.1 MG/DL (8.8-10.2); CREATININE FOR GFR 2.48 MG/DL (0.55-1.30); GLOMERULAR FILTRATION RATE 19.9 (>32); POTASSIUM SERUM 4.7 MEQ/L (3.5-5.1); TOTAL PROTEIN 5.7 GM/DL (6.4-8.2)
[2019-04-17] MEDS: PANTOPRAZOLE 40MG INJ (PROTONIX) (C9113) IV SCH ×2 (02:08→13:09)
--- NOTE | 2019-04-17 04:22 | REPVR ---
EXAM: XR Abdomen, 1 View EXAM DATE/TIME: 04/17/2019 2:36 AM CLINICAL HISTORY: 83 years old, female; Nausea and vomiting; Patient HX: Sbo due to adhesion last week; Additional info: Nausea vomiting TECHNIQUE: Imaging protocol: Frontal supine view of the abdomen/pelvis. COMPARISON: CR Abdomen,Flat Upright,PA CHEST 04/12/2019 9:24 AM FINDINGS: Gastrointestinal tract: Progressive gaseous distention of several small bowel loops measuring up to 4 cm in diameter. Intraperitoneal space: Surgical clips in the bilateral upper quadrants. Bones/joints: Multilevel degenerative disease of the lumbar spine. IMPRESSION: Progressive gaseous distention of several small bowel loops measuring up to 4 cm in diameter. Electronically signed by: Wilmer Johnson On 04/17/2019 04:22:17 AM
[2019-04-17] MEDS: HumaLOG INSULIN (NovoLOG) PER UNIT SC SCH ×3 (07:30→16:46)
[2019-04-17] MEDS: ADVAIR HFA 230/21MCG INHALER INH SCH ×2 (07:59→20:24)
[2019-04-17] MEDS: predniSONE 20 MG TAB PO SCH ×3 (09:00→21:56)
[2019-04-17] MEDS: CALCITRIOL 0.25 MCG CAP (S0169) PO SCH ×2 (09:00→10:26)
[2019-04-17] MEDS: POTASSIUM CHLORIDE 10 MEQ SR TABLET PO SCH ×2 (09:00→10:26)
[2019-04-17] MEDS: BRINZOLAMIDE 1 % OPHTH SUSP (AZOPT) 10ML OU SCH ×2 (10:27→21:56)
[2019-04-17 10:51] LABS: BASO % 0.1 % (0.0-1.0); HEMATOCRIT 25.2 % (36.0-47.0); HEMOGLOBIN 8.2 g/dl (12.0-15.5); LYMPH # 0.6 10^3/uL (1.5-4.5); MEAN CORPUSCULAR HEMOGLOBIN 32.4 pg (27.0-33.0); MEAN CORPUSCULAR HGB CONC 32.5 g/dl (32.0-36.5); MEAN CORPUSCULAR VOLUME 99.6 fl (80.0-96.0); MONO # 0.6 10^3/uL (0.0-0.8); MONO % 3.6 % (0.0-5.0); NEUTROPHILS # 13.9 10^3/uL (1.8-7.7); PLATELET COUNT, AUTOMATED 214 10^3/uL (150-450); RED BLOOD COUNT 2.53 10^6/uL (4.00-5.40); WHITE BLOOD COUNT 15.3 10^3/uL (4.0-10.0)
[2019-04-17 11:20] LABS: CALCIUM LEVEL 7.5 MG/DL (8.8-10.2); CREATININE FOR GFR 2.43 MG/DL (0.55-1.30); GLOMERULAR FILTRATION RATE 20.3 (>32); POTASSIUM SERUM 4.9 MEQ/L (3.5-5.1)
[2019-04-17] MEDS: SUCRALFATE SUSP 1GM/10ML UD PO SCH ×2 (12:00→18:00)
[2019-04-17] MEDS: D5W/0.45% SODIUM CHLORIDE 1,000 ML IV SCH (13:07)
[2019-04-17 17:59] LABS: HEMATOCRIT 27.3 % (36.0-47.0); HEMOGLOBIN 8.7 g/dl (12.0-15.5)
--- NOTE | 2019-04-17 19:11 | REP ---
Portable chest x-ray: Single view. History: Shortness of breath. Rule out pneumonia. Comparison study: April 16, 2019. Findings: EKG monitoring electrodes overlie the chest. Bipolar pacemaker remains in place. There is bibasilar linear fibrosis. Pleural angles are sharp. No acute infiltrate is seen. Heart is not enlarged. The aorta is calcific. Impression: Bibasilar coarse linear fibrosis. Dual lead pacemaker in place. Otherwise no acute disease. Electronically Signed by Barry Rodrigez MD 04/17/2019 07:02 P
--- NOTE | 2019-04-17 19:48 | REP ---
REASON: Pain and swelling. History of lower extremity bilateral DVT. TECHNIQUE: Multiple ultrasonographic images of the deep venous structures of thel left upper extremity were obtained to rule out deep venous thrombosis. FINDINGS: There is no abnormal echogenic material seen in any of the visualized deep venous structures of the left upper extremity. Coaptation where applicable is appropriate throughout. Augmentation shows an expected response throughout. IMPRESSION: Negative exam. Electronically Signed by Feliz Chester DO 04/18/2019 11:58 A
[2019-04-17 19:52] LABS: BLOOD UREA NITROGEN 63 MG/DL (7-18); CARBON DIOXIDE LEVEL 18 MEQ/L (21-32); CHLORIDE LEVEL 108 MEQ/L (98-107); CK-MB VALUE MASS 2.8 NG/ML (<3.6); CPK CREATINE PHOSPHOKINASE 42 U/L (26-192); CREATININE FOR GFR 2.62 MG/DL (0.55-1.30); GLOMERULAR FILTRATION RATE 18.6 (>32); GLUCOSE, FASTING 289 MG/DL (70-100); MB/CK RELATIVE INDEX 6.67 (< OR =4); POTASSIUM SERUM 4.2 MEQ/L (3.5-5.1); SODIUM LEVEL 138 MEQ/L (136-145); TROPONIN I < 0.02 NG/ML (< 0.10)
--- NOTE | 2019-04-17 19:52 | IPN ---
DATE: 04/16/2019 Patient complains of some dyspnea and dyspnea on exertion as she walks from bedroom to bathroom. Patient's diuretics have recently been resumed as well as her anticoagulation. She has overt wheezing and had some improvement with Solu-Medrol yesterday. However, with resumption of her diuretics, she did have a significant increase in her creatinine to 2.68 from 1.3 two days ago. Urine output was minimal overnight and is quite concerning for overdiuresis. At this time, patient is receiving some benefit from nebulizer treatment so we will continue this every four hours while she is awake and every hour as needed in between. A trial of fluids has been given for urine output and to monitor patient's renal function. She otherwise is tolerating her diet, liquid much more so than solid, without nausea or vomiting. She has not been taking too much solid food, however, and has not been really out of bed, unstable on her feet for the past few days. Physical therapy has been consulted. Temperature 98.1, pulse 84, respiratory rate 20, blood pressure 129/62, 94% on two liters nasal cannula. GENERAL: Patient is awake, alert and oriented times three, answering questions appropriately. No jugular venous distention. No thyromegaly. No cervical lymphadenopathy. Dry mucous membranes. No use of respiratory accessory muscles. No tripoding position. Patient's lungs are diminished with bilateral wheezing. HEART: S1, S2, sinus rhythm. ABDOMEN: Obese, soft, nontender, nondistended. Positive bowel sounds. Extremities have no cyanosis or clubbing. Some pitting edema. Laboratory data, microbiology and imaging studies have been reviewed. Chest x-ray 04/16/2019 shows right lower lobe atelectasis versus early pneumonia, otherwise unchanged from prior examination. ASSESSMENT AND PLAN: This is an 83-year-old female with history of multiple abdominal surgeries, presented with partial small obstruction mostly likely secondary to adhesions, deep venous thrombosis (DVT), chronic obstructive pulmonary disease (COPD), coronary artery disease (CAD), sick sinus syndrome with pacer, chronic kidney disease (CKD) stage III, tolerated her diet after conservative management and then resumed back on her home medications. ACUTE ISSUES: 1. Acute kidney injury, most likely secondary to her diuretics which have been held. Patient is on a trial of IV fluids. Check postvoid residual and bladder scan. Check a renal ultrasound but unlikely to have any obstruction. In light of recent bowel obstruction, we need to rule out obstruction. 2. Chronic obstructive pulmonary disease (COPD) exacerbation with bilateral wheezing. Chest x-ray has no pulmonary edema, possible early pneumonia. Patient was given a nebulizer treatment, Solu-Medrol with steroid-induced leukocytosis. Obtain a sputum sample and check procalcitonin. 3. Klebsiella urine culture sensitive to Cipro. Started on Cipro times three doses, renal dosing. 4. Partial small bowel obstruction, resolved with conservative management, nasogastric (NG) tube, IV fluids. 5. Sick sinus syndrome with pacemaker. 6. History of deep vein thrombosis (DVT). Resumed on her home dose of Xarelto, off of IV fluids. 7. Acute on chronic renal failure, stage III. Renal ultrasound, IV fluids titration, postvoid bladder scans. MTDD
[2019-04-17] MEDS: LEVEMIR (INSULIN DETEMIR) 1 UNITS/0.01ML SC SCH (21:56)
[2019-04-17] MEDS: LATANOPROST 0.005% OPHTH SOLN 2.5 ML OU SCH (21:57)
--- NOTE | 2019-04-17 23:42 | IPN ---
DATE: 04/17/2019 Yesterday after eating her dinner, patient vomited blood. She felt that it was like blood soaked in blood. She denied any dizziness, lightheadedness. Hemoglobin overnight decreased from 9.6 to 8.2 this morning. She otherwise denies any recurrent episodes. Denies any melena, black tarry stools. No abdominal pain, nausea or vomiting this morning. No fever or chills. No shortness of breath. Yesterday the patient's creatinine was found to be elevated, was given a trial of intravenous (IV) fluids, diuretics were held. No significant change today. Renal ultrasound has no obstructive uropathy. Patient was given some Solu-Medrol and prednisone for significant wheezing and chronic obstructive pulmonary disease (COPD) exacerbation for the past 2 days. She has had improvement in the wheezing and currently is breathing better. Temperature 97.8, pulse 81, respiratory rate 17, blood pressure 106/56, 94% on 2 liters nasal cannula. Generally, awake, alert, oriented times three, answering questions appropriately. She has no conversational dyspnea. No use of respiratory accessory muscles. No nasal flaring or tracheal deviation. No jugular venous distention. No thyromegaly. No cervical lymphadenopathy. Moist mucous membranes. Neck is supple, full range of motion. Lungs are diminished with faint expiratory wheezing, significant improvement than yesterday. Heart: S1, S2, sinus rhythm. No murmurs, rubs, or gallops. Abdomen is obese, soft, nontender, nondistended. Positive bowel sounds. No rebound, guarding, or hepatosplenomegaly. Extremities: No cyanosis, clubbing or pitting edema. Skin: Skin is pink, warm and well perfused. Input overnight was 2000, output of 514. Input this morning is 621, output of 200. LABORATORY DATA: White count 15, hemoglobin 8.2, hematocrit 25, platelet count 214. Sodium 137, potassium 4.9, chloride 107, bicarbonate 20, BUN 62, creatinine 2.4, glucose 373. ACUTE ISSUES: 1. Hematemesis, acute upper gastrointestinal (GI) bleed in the setting of Xarelto use. Recent nasogastric (NG) tube placement. Patient is currently on Protonix, Carafate, nothing by mouth status and IV fluids. 2. Acute blood loss anemia. Type and screen. Transfuse if hemoglobin is less than 8 or persistent bleeding. 3. Chronic obstructive pulmonary disease exacerbation with bilateral wheezing on exam. No pulmonary edema on chest x-ray. The patient has been given Solu-Medrol and prednisone with nebulizer treatments every 4 hours and every 1 hour as needed with significant improvement. 4. Acute kidney injury secondary to resumption of patient's torsemide, acutely, not in decompensated failure. No pulmonary edema on chest x-ray, saturating well on two liters nasal cannula 94-95%. Currently on intravenous fluids. 5. Steroid-induced leukocytosis. Due to complaints of shortness of breath, slight cough, chest x-ray obtained. It showed could not exclude pneumonia. Will obtain a chest x-ray, PA and lateral, today and antibiotics if needed. 6. History of deep vein thrombosis (DVT). Anticoagulation is held secondary to acute GI bleed. Will scan lower extremities. If active DVT, may need inferior vena cava (IVC) filter placement as cannot be anticoagulated due to acute blood loss anemia from upper GI. 7. History of coronary artery disease, pacemaker due to sick sinus syndrome. 8. Acute on chronic renal failure. Renal ultrasound negative for obstruction. Most likely due to diuresis. No signs of femoral compartment syndrome. MTDD
[2019-04-18] MEDS: IPRATROPIUM 0.5MG/ALBUTEROL 2.5MG INH SOL UD 3ML (DUONEB)(J7620) NEB SCH ×2 (00:01→07:49)
[2019-04-18] MEDS: LEVALBUTEROL 1.25 MG/0.5 ML CONCENTRATE NEB INH SCH ×6 (00:02→23:40)
[2019-04-18] MEDS: SUCRALFATE SUSP 1GM/10ML UD PO SCH ×5 (00:06→23:59)
[2019-04-18] MEDS: HumaLOG INSULIN (NovoLOG) PER UNIT SC SCH ×4 (00:06→18:24)
[2019-04-18 02:00] VITALS: BP 110/64
[2019-04-18] MEDS: PANTOPRAZOLE 40MG INJ (PROTONIX) (C9113) IV SCH ×2 (02:24→13:40)
[2019-04-18 06:00] VITALS: BP 130/65
[2019-04-18] MEDS: D5W/0.45% SODIUM CHLORIDE 1,000 ML IV SCH ×2 (06:15→08:59)
[2019-04-18] MEDS ORDERED: NS 1,000 ML IV SCH (07:00)
[2019-04-18 07:01] LABS: HEMATOCRIT 26.1 % (36.0-47.0); HEMOGLOBIN 8.3 g/dl (12.0-15.5); MEAN CORPUSCULAR HEMOGLOBIN 32.7 pg (27.0-33.0); MEAN CORPUSCULAR HGB CONC 31.8 g/dl (32.0-36.5); MEAN CORPUSCULAR VOLUME 102.8 fl (80.0-96.0); PLATELET COUNT, AUTOMATED 209 10^3/uL (150-450); RED BLOOD COUNT 2.54 10^6/uL (4.00-5.40); WHITE BLOOD COUNT 11.1 10^3/uL (4.0-10.0)
--- NOTE | 2019-04-18 07:18 | REP ---
REASON: Pain and swelling. There are multiple ultrasonographic images of the deep venous structures of the right thigh were obtained and the longitudinal and transverse scan planes along with Doppler interrogation techniques and color flow Doppler imaging with Augmentation. There is abnormal echogenic material seen in the distal aspect of the superficial femoral vein. The hoover of which do not collapse with compression. Augmentation shows a decreased response. IMPRESSION:There is an incompletely occluding thrombus in the right thigh deep venous structure. Consistent with acute DVT as described above. Multiple sonographic images of the deep venous structures of the left thigh were obtained from the common femoral vein to the popliteal vein along with Doppler interrogative techniques, compression techniques, color Doppler imaging and augmentation. There is an extensive abnormal echogenic focus seen throughout the superficial femoral vein. The wall of which do not collapse and show decreased response to augmentation. Echogenic material is also seen in the left popliteal vein. IMPRESSION: There is an extensive nonoccluding deep vein thrombus in the deep venous structures of the left thigh as described above. Electronically Signed by Feliz Chester DO 04/18/2019 11:59 A
[2019-04-18 07:19] LABS: CALCIUM LEVEL 7.7 MG/DL (8.8-10.2); CREATININE FOR GFR 2.2 MG/DL (0.55-1.30); GLOMERULAR FILTRATION RATE 22.8 (>32); POTASSIUM SERUM 4.4 MEQ/L (3.5-5.1)
[2019-04-18] MEDS: ADVAIR HFA 230/21MCG INHALER INH SCH ×2 (07:50→20:23)
[2019-04-18] MEDS: predniSONE 20 MG TAB PO SCH (08:58)
[2019-04-18] MEDS: POTASSIUM CHLORIDE 10 MEQ SR TABLET PO SCH (08:59)
[2019-04-18] MEDS: CALCITRIOL 0.25 MCG CAP (S0169) PO SCH (08:59)
[2019-04-18] MEDS: BRINZOLAMIDE 1 % OPHTH SUSP (AZOPT) 10ML OU SCH ×2 (09:00→20:11)
[2019-04-18 10:00] VITALS: BP 130/62
--- NOTE | 2019-04-18 10:30 | IPN ---
DATE: 04/17/2019 HISTORY: Patient was admitted on 04/09/2019 with a small bowel obstruction with some abdominal pain and nausea and vomiting. That had essentially resolved by the end of this past week and she was advanced to a regular diet as of the 04/14/2019. I had thought she might be ready for discharge on 04/15/2019, but she had one episode of emesis. She apparently developed some shortness of breath and was placed on some steroids for respiratory status. Last evening, 04/16/2019, she had an episode of hematemesis of a small amount of blood with a couple of small clots. The patient reports that she just felt some burning in her throat and coughed, then she had some blood come up. She has been kept nothing by mouth since then, though she denies any nausea or vomiting. She reports that she has been having flatus and bowel movements. Vital signs show that she has been afebrile over the past 24 hours. Pulse is in the 80s-90s and her blood pressure is excellent. She is on 2 liters of nasal cannula oxygen with oxygen saturations in the mid 90s. Intake and output show that yesterday she had 2000 in with 500 mL of urine recorded. Today, she has had no measurement of her output. She is receiving 50 mL/h of D5-12 normal saline. PHYSICAL EXAM: The patient appears somewhat tired and slightly pale, but she is alert and oriented and denies any abdominal pain. Heart exam shows a regular rhythm of about 80. The lungs show some fairly distant breath sounds with a few expiratory wheezes that are fairly faint in the lower lung ernandez. Abdomen is mildly distended, but she has active bowel sounds and the abdomen is soft and without any significant tenderness. Extremities: Lower extremities are without any significant edema. She does have some edema of her right and left upper extremities. Laboratory studies show that this morning she had a white count of 15, hemoglobin 8, hematocrit 25, and a platelet count of 214,000. Hemoglobin and hematocrit at about 1800 hours showed a hemoglobin of 9, hematocrit of 27. She had a chemistry profile this evening showing a sodium of 138, potassium 4.2, chloride 108, CO2 of 18, BUN of 63, creatinine 2.6, and a glucose of 289. IMAGING: The patient had a chest x-ray that showed no evidence of pleural effusion with some bibasilar coarse markings. An ultrasound of the left upper extremity showed no evidence of deep vein thrombosis. Her renal ultrasound from 04/16/2019 showed only some cortical thickening consistent with some chronic renal disease. IMPRESSION: Patient appears quite stable currently. She had one episode of emesis with a small amount of blood last evening or early this morning. She has had no further evident bleeding. She denies any nausea or vomiting. She remains afebrile with no signs of any recurrence of her bowel obstruction. She does have elevations of her BUN and creatinine currently. PLAN: Patient has been nothing by mouth all day since her episode of a small amount of emesis. I will put her back on some clear liquids. She requested a small amount of milk and a few crackers and I see no problem with this and I will let her have it. She can resume her oral medications. We will continue to monitor for any evidence of bleeding and she has some routine labs ordered for the morning.
--- NOTE | 2019-04-18 10:51 | IPNPDOC ---
Subjective Date Seen The patient was seen on 04/18/19. Subjective Chief Complaint/HPI Says her SOB is a little better than yesterday. No further hematemesis, tolerated liquids. Denies any abdominal pain, nausea or vomiting or clarita. No fever or chills, Has cough and is able to bring up phlegm now. Objective Physical Examination General Exam: Positive: Alert, Cooperative, Mild Distress Eye Exam: Positive: PERRLA, Conjunctiva & lids normal, EOMI; Negative: Sclera icteric ENT Exam: Positive: Atraumatic, Mucous membr. moist/pink, Pharynx Normal Neck Exam: Positive: Supple; Negative: JVD, thyromegaly Chest Exam: Positive: Rhonchi, Wheezing, Diminished Heart Exam: Positive: Rate Normal, Regular Rhythm, Normal S1, Normal S2; Negative: Murmurs, Rubs Telemetry: Positive: No significant arrhythmia Abdomen Exam: Positive: Normal bowel sounds, Soft; Negative: Tenderness, Hepatospenomegaly Extremity Exam: Negative: Clubbing, Cyanosis, Edema Skin Exam: Positive: Nl turgor and temperature; Negative: Rash, Breakdown Assessment /Plan Assessment Right acute DVT with left leg chronic DVT since 2017. was on xarelto at home still developed new dvt. Now with recent hematemesis. will discuss with Surgery if needs EGD and discuss with Dr Wolfe regarding an IVC filter. Hypoxia due to COPD exacerbation. Hematemesis, acute upper gastrointestinal (GI) bleed in the setting of Xarelto use. Recent nasogastric (NG) tube placement. Patient is currently on Protonix, Carafate HH at 8.3 slight down trending has been on fluids will recheck in the afternoon. Acute blood loss anemia. Type and screen. Transfuse if hemoglobin is less than 8 or persistent bleeding. Chronic obstructive pulmonary disease exacerbation with bilateral wheezing on exam. No pulmonary edema on chest x-ray. 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 Steroid-induced leukocytosis. Due to complaints of shortness of breath, slight cough, chest x-ray obtained. It showed could not exclude pneumonia. Will obtain a chest x-ray, PA and lateral, today and antibiotics if needed. History of coronary artery disease s/p stents No issues at present. 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 Renal ultrasound negative for obstruction. Most likely due to diuresis. No signs of femoral compartment syndrome. Diabetes. sugars controlled. continue lispro, will hold levemir till patient eating orally. GERD on PPI Glaucoma Macular degeneration Plan/VTE VTE Prophylaxis Ordered?: Yes VS, I&O, 24H, Fishbone Vital Signs/I&O Vital Signs Date Time Temp Pulse Resp B/P (MAP) Pulse Ox O2 Delivery O2 Flow Rate FiO2 04/18/19 10:00 98.0 86 22 130/62 (84) 95 04/18/19 06:00 2.0 04/15/19 22:34 Nasal Cannula I&O- Last 24 Hours up to 6 AM 04/18/19 06:00 Intake Total 1451 ml Output Total 400 ml Balance 1051 ml Laboratory Data 24H LABS Laboratory Tests 2 04/17/19 11:31: Bedside Glucose (Misc Panel) 377H 04/17/19 19:08: Anion Gap 12, Glomerular Filtration Rate 18.6L, Blood Urea Nitrogen 63H, Creatinine 2.62H, Sodium Level 138, Potassium Level 4.2, Chloride Level 108H, Carbon Dioxide Level 18L, Calcium Level 8.0L, Total Creatine Kinase 42, Whole Blood Ionized Calcium 4.3L, Magnesium Level 2.0, Creatine Kinase MB 2.8, Creatine Kinase MB Relative Index 6.67H, Troponin I < 0.02 04/18/19 06:00: Bedside Glucose (Misc Panel) 289H 04/18/19 06:42: Anion Gap 9, Glomerular Filtration Rate 22.8L, Blood Urea Nitrogen 63H, Creatinine 2.20H, Sodium Level 137, Potassium Level 4.4, Chloride Level 109H, Carbon Dioxide Level 19L, Calcium Level 7.7L, Nucleated Red Blood Cells % (auto) 0.0 CBC/BMP Laboratory Tests 04/17/19 17:45 04/17/19 19:08 Calcium Level 8.0 L, Total Creatine Kinase 42 04/18/19 06:42 Calcium Level 7.7 L, Red Blood Count 2.54 L, Mean Corpuscular Volume 102.8 H, Mean Corpuscular Hemoglobin 32.7, Mean Corpuscular Hemoglobin Concent 31.8 L, Red Cell Distribution Width 13.6 Microbiology Microbiology 04/17/19 Stool Occult Blood (ROBLES) - Final, Complete 04/09/19 Urine Culture - Final, Complete Klebsiella Pneumoniae ELVIN ALFARO MD Apr 18, 2019 10:28
[2019-04-18] MEDS: IPRATROPIUM HFA INHALER 12.9 GRAMS (ATROVENT HFA) INH SCH ×2 (11:24→20:22)
[2019-04-18] MEDS ORDERED: ISOVUE-300 61% 50ML VIAL (Q9967) As Ordered ONE (11:33)
[2019-04-18] MEDS ORDERED: BUPIVACAINE HCL 0.5% 10 ML VIAL As Ordered ONE (11:33)
[2019-04-18] MEDS ORDERED: LIDOCAINE 2% MDV 20 ML VIAL As Ordered ONE (11:33)
--- NOTE | 2019-04-18 11:49 | CR.PDOC ---
General Date of Consultation: Apr 18, [address] Wolfe HPI: 83year oldF admitted 04/09/19 with abdominal pain, n/v, SBO. The pt is on Xarelto as outpt related to h/o recurrent DVT. On admission, the pt's Xarelto was held for possible surgery. On 04/14 the pt's diet was advanced but on 04/15 the pt had emesis and 04/16 small amount of hematemesis. The pt had BLE US related to pain and swelling 04/17/19 indicating acute DVT RLE. Vascular Surgery is consulted for consideration of IVC Filter. AC remains on hold. Denies any fevers, chills, weakness, fatigue, Headache, Chest Pain, Shortness of breath, cough, palpitations, bladder habits. PMHx: CAD/stent COPD HTN IDDM Chronic DVT LLE on Xarelto as outpt glaucoma SSS/pacemaker PSHX: subtotal colectomy hysterectomy. Cholecystectomy. Appendectomy. Multiple breast biopsies. Cataract surgery bilaterally. History of an RCA stent in 2004. Pacemaker SOCHX: Marital Status: Tobacco use: denies ETOH: 1 per day FAMHX: no FH of clotting d/o ROS: As noted in HPI, otherwise 11pt ROS of systems reviewed and unremarkable. PE: GEN: 83yoF, appears stated age. No acute distress. Alert and oriented x 3. HEENT: Normocephalic, atraumatic. Moist mucous membranes. CHEST: Regular rate and rhythm, +S1, +S2 LUNGS: Wheezes noted bilaterally. No accessory muscle use. ABD: Round, soft, non-tender, non-distended. EXT: No lower extremity edema, erythema appreciated. NEURO: Alert and oriented x 3. Cranial nerves III-XII are intact. No focal deficits appreciated. US BLE IMPRESSION: There is an incompletely occluding thrombus in the right thigh deep venous structure. Consistent with acute DVT as described above. Multiple sonographic images of the deep venous structures of the left thigh were obtained from the common femoral vein to the popliteal vein along with Doppler interrogative techniques, compression techniques, color Doppler imaging and augmentation. There is an extensive abnormal echogenic focus seen throughout the superficial femoral vein. The wall of which do not collapse and show decreased response to augmentation. Echogenic material is also seen in the left popliteal vein. IMPRESSION: There is an extensive nonoccluding deep vein thrombus in the deep venous structures of the left thigh as described above. A&P: 1. Acute DVT RLE, H/O chronic DVT LLE. Paul remains on hold related to hematemesis. The pt is reviewed and examined as per Dr Wolfe, plan for IVC filter today. 2. SBO/hematemesis. Mgmt as per Primary team. Pt currently on clear fluids. Vital Signs/I&O Vital Signs Date Time Temp Pulse Resp B/P (MAP) Pulse Ox O2 Delivery O2 Flow Rate FiO2 04/18/19 10:00 98.0 86 22 130/62 (84) 95 04/18/19 06:00 2.0 04/15/19 22:34 Nasal Cannula I&O- Last 24 Hours up to 6 AM 04/18/19 06:00 Intake Total 1451 ml Output Total 400 ml Balance 1051 ml Laboratory Data Labs 24H Laboratory Tests 2 04/17/19 11:31: Bedside Glucose (Misc Panel) 377H 04/17/19 19:08: Anion Gap 12, Glomerular Filtration Rate 18.6L, Blood Urea Nitrogen 63H, Creatinine 2.62H, Sodium Level 138, Potassium Level 4.2, Chloride Level 108H, Carbon Dioxide Level 18L, Calcium Level 8.0L, Total Creatine Kinase 42, Whole Blood Ionized Calcium 4.3L, Magnesium Level 2.0, Creatine Kinase MB 2.8, Creatine Kinase MB Relative Index 6.67H, Troponin I < 0.02 04/18/19 06:00: Bedside Glucose (Misc Panel) 289H 04/18/19 06:42: Anion Gap 9, Glomerular Filtration Rate 22.8L, Blood Urea Nitrogen 63H, Creatinine 2.20H, Sodium Level 137, Potassium Level 4.4, Chloride Level 109H, Carbon Dioxide Level 19L, Calcium Level 7.7L, Nucleated Red Blood Cells % (auto) 0.0 CBC/BMP Laboratory Tests 04/17/19 17:45 04/17/19 19:08 Calcium Level 8.0 L, Total Creatine Kinase 42 04/18/19 06:42 Calcium Level 7.7 L, Red Blood Count 2.54 L, Mean Corpuscular Volume 102.8 H, Mean Corpuscular Hemoglobin 32.7, Mean Corpuscular Hemoglobin Concent 31.8 L, Red Cell Distribution Width 13.6 Microbiology Microbiology 04/17/19 Stool Occult Blood (ROBLES) - Final, Complete 04/09/19 Urine Culture - Final, Complete Klebsiella Pneumoniae Allergies Coded Allergies: carvedilol (Verified Allergy, Severe, difficulty breathing, 04/09/19) pitavastatin (Verified Allergy, Severe, anaphylaxis, 04/09/19) dexamethasone (Verified Allergy, Intermediate, eyes burn, 04/09/19) dorzolamide (Verified Allergy, Intermediate, eyes burn, 04/09/19) neomycin (Verified Allergy, Intermediate, eyes burn, 04/09/19) polymyxin B (Verified Allergy, Intermediate, eyes burn, 04/09/19) timolol (Verified Allergy, Intermediate, eyes burn, 04/09/19) Penicillins (Verified Allergy, Mild, rash, 04/09/19) Quinolones (Verified Allergy, Mild, rash, 04/09/19) DG Inhibitors (Verified Adverse Reaction, Intermediate, kidney problems / cough, 04/09/19) Hydxxdn-Vab-Cjm Reductase Inhibitor (Verified Adverse Reaction, Mild, myalgia, 04/09/19) colesevelam (Verified Adverse Reaction, Mild, myalgia, 04/09/19) ezetimibe (Verified Adverse Reaction, Mild, myalgia, 04/09/19) losartan (Verified Adverse Reaction, Mild, nausea / no appetite, 04/09/19) Home Medications Scheduled Acetaminophen (Tylenol Arthritis) 650 Mg Tablet.er, 650 MG PO BID, (Reported) Allopurinol (Allopurinol) 100 Mg Tab, 100 MG PO DAILY, (Reported) Aspirin (Aspirin EC) 81 Mg Tab, 81 MG PO DAILY, (Reported) Bimatoprost (Lumigan) 50 Drop/2.5 Ml Eleanor, 1 DROP OU QHS, (Reported) Brinzolamide (Azopt) 1 % Taya, 1 DROP OU BID, (Reported) Calcitriol (Rocaltrol) 0.25 Mcg Cap, 0.25 MCG PO DAILY, (Reported) Cholecalciferol (Vitamin D3) (Vitamin D3) 1,000 Unit Tab, 2,000 UNIT PO DAILY, (Reported) Insulin Glargine (Lantus) 1 Units/0.01 Ml Susp, 10 UNITS SC QHS, (Reported) [place]-3 Fatty Acids/Fish Oil ([place] 3 1,000 mg Softgel) 1 Cap Cap, 1 CAP PO BID, (Reported) Omeprazole (Omeprazole) 20 Mg Capsule.dr, 20 MG PO DAILY, (Reported) Potassium Chloride (Potassium Chloride) 20 Meq Tablet.er, 20 MEQ PO DAILY, (Reported) Rivaroxaban (Xarelto) 15 Mg Tablet, 15 MG PO DAILY, (Reported) Salmeterol/Fluticasone (Advair 500-50 Diskus) 1 Each Blst.w.dev, 1 PUFF INH BID, (Reported) Spironolactone (Spironolactone) 25 Mg Tablet, 12.5 MG PO DAILY, (Reported) Torsemide (Torsemide) 10 Mg Tablet, 10 MG PO DAILY, (Reported) 30MG TOTAL DAILY Torsemide (Torsemide) 20 Mg Tablet, 20 MG PO DAILY, (Reported) 30MG TOTAL DAILY Vit A/Vit C/Vit E/Zinc/Copper (Preservision Areds Tablet) 1 Each Tablet, 1 TAB PO BID, (Reported) Scheduled PRN Albuterol Sulfate (Proair Hfa) 108 Mcg/Act Aer, 2 PUFFS INH Q4H PRN for SHORTNESS OF BREATH, (Reported) Nitroglycerin (Nitrostat) 0.4 Mg Subl, 0.4 MG SL NITRO PRN for CHEST PAIN, (Reported) Silvia Barraza Apr 18, 2019 11:24
[2019-04-18 14:00] VITALS: BP 130/64
--- NOTE | 2019-04-18 14:06 | ROOPDOC ---
[facility] Report Of Operation Report of Operation DATE OF PROCEDURE: 04/18/2019 ATTENDING SURGEON: DR. Jennifer Wolfe M.D. ASSISTANTS: Jacek Clark PREOPERATIVE DIAGNOSES: Small bowel obstruction, DVT, hematemesis and inability to undergo anticoagulation POSTOPERATIVE DIAGNOSES: Small bowel obstruction, DVT, hematemesis and inability to undergo anticoagulation PROCEDURES: Ultrasound-guided right basilic vein cannulation. Inferior vena cava catheter placement. Inferior vena cava filter placement with placement of a Option Elite retrievable inferior vena cava filter. INDICATION: The patient is 83-year-old female who was found to have bilateral lower extremity deep venous thrombosis and hematemesis. Patient also has a sm all bowel obstruction and might require surgical intervention and has undergone been unable to undergo anticoagulation secondary to the possible surgical intervention in the hematemesis. Patient will undergo placement of a retrievable inferior vena cava filter for protection from pulmonary embolus and once the patient is stabilized and able to undergo repeat anticoagulation the fi lter will be removed. The procedure was described and explained in detail to the patient including drawing of pictures demonstrating the procedure and pertinent anatomy. Risks, benefits and alternative treatment options were discussed with the patient. Alternative treatment options included but were not limited to no intervention. Benefits include but were not limited to placement of a filter in the inferior vena cava for prevention of pulmonary embolus. Risks included but were not limited to infection, bleeding, renal failure requiring hemodialysis, IVC filter thrombosis, IVC filter migration, perforation of the inferior vena cava filter through the inferior vena cava into surrounding tissue and organs, retroperitoneal hematoma, cannulation site deep venous thrombosis possible need for open surgical intervention, possible requirement for transfusion of blood products, allergic reaction and/or complication from IV contrast, allergic reaction and/or complication from the prepping and draping materials, allergic reaction and/or complication from local anesthetic and/or IV sedation medications, scarring of the skin, bruising, nerve injury, pain, cerebrovascular accident, myocardial infarction, pulmonary embolus, deep venous thrombosis, poor patient satisfaction, poor results, poor outcome, loss of limb and loss of life. 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 Patient's questions were answered. Patient voices understanding of these risks, benefits and alternative treatment options. Patient voices acceptance of the risks associated with inferior vena cava filter placement and agrees to proceed with the procedure excepting the associated ris ks of the procedure. There were no guarantees or promises made to the patient regarding the results or outcome of the procedure. ANESTHESIA: Local with 10 mL of 2% lidocaine mixed with 0.5% Marcaine. FLUORO TIME: 0.1 minutes. CONTRAST: None COMPLICATIONS: None DRAINS: None SPECIMENS: None ESTIMATED BLOOD LOSS: 5 mL. INTRAVENOUS (IV) FLUID: 50 mL. HEPARIN: None PROTAMINE: None SPECIMENS: None IMPLANTS: Retrievable Option Elite inferior vena cava filter. DESCRIPTION OF PROCEDURE: Patient was taken to the vascular angiography suite and placed supine on the angiography room table. Patient was prepped and draped in a standard surgical fashion. A timeout was conducted by myself and the team members in the room confirming the correct patient, procedure and laterality. Ultrasound was then used to evaluate the right basilic vein at the antecubital fossa, which was noted to be easily compressible, widely patent, and free of thrombus. The micropuncture needle was then used to cannulate the right basilic vein at the antecubital fossa using ultrasound guidance after anesthetizing the overlying skin and subcutaneous tissue with 2% lidocaine mixed with 0.5% Marcaine. Ultrasound was then used to guide cannulation of the right basilic vein at the antecubital fossa with real-time concurrent visualization of the entry of the needle into the right basilic vein at the antecubital fossa with a hardcopy image preserved. The micropuncture wire was advanced through the micropuncture needle which was upsized to a micropuncture sheath. Fluoroscopy was then used to place the wire in the inferior vena cava through the micropu ncture sheath which was upsized to a 6 Ma[place] sheath. A catheter was placed in the inferior vena cava below the level of the renal veins but no inferior vena cava venogram was performed due to the patient's chronic renal insufficiency and concerns for contrast-induced nephropathy. The filter was deployed using fluoroscopic guidance at the lumbar 3 lumbar 4 interdisc space. Final fluoroscopic image showed the inferior vena cava filter to be in good position and good alignment. The sheath was removed and manual compression applied at the cannulation site for hemostasis, which was obtained. Dressings were then applied. The patient tolerated the procedure well. All instrument, sponge, and needle counts were correct at the end of the case. There were no complications. Dr. Wolfe was present for and directed the entire case. The patient was transferred to the holding area and subsequently to the ICU in stable condition. The procedure and the results were discussed with the patient in the postprocedure holding area with all the patient's questions being answered. RADIOLOGIC SUPERVISION AND INTERPRETATION: The ultrasound showed the right basilic vein at the antecubital fossa to be widely patent, easily compressible and free of thrombus. Ultrasound was used to guide cannulation with real-time concurrent visualization of the entry of the needle into the right basilic vein at the antecubital fossa with a hardcopy image preserved. A sheath and catheter were placed into the inferior vena cava. An inferior vena cava venogram was not performed due to chronic renal insufficiency and concerns for contrast nephropathy. The retrievable inferior vena cava filter was placed below the level of the renal veins in the inferior vena cava using fluoroscopic guidance at the lumbar 3 lumbar 4 level. Final fluoroscopic image showed the filter to be in good position and good alignment. CONCLUSION: Patient underwent placement of an inferior vena cava filter secondary to bilateral lower extremity DVT and inability to undergo anticoagulation secondary to hematemesis and small bowel obstruction possibly requiring surgical intervention. PLAN: Patient will be followed postoperatively and will undergo removal of the retrievable inferior vena cava filter once he has stabilized and is able to begin anticoagulation again. Joel Wolfe MD Apr 18, 2019 14:06
[2019-04-18] MEDS: SODIUM CHLORIDE 0.9% INJ 10 ML SYR IV SCH (16:40)
[2019-04-18 17:11] LABS: HEMATOCRIT 25.3 % (36.0-47.0); HEMOGLOBIN 8.2 g/dl (12.0-15.5); MEAN CORPUSCULAR HEMOGLOBIN 33.1 pg (27.0-33.0); MEAN CORPUSCULAR HGB CONC 32.4 g/dl (32.0-36.5); PLATELET COUNT, AUTOMATED 208 10^3/uL (150-450); RED BLOOD COUNT 2.48 10^6/uL (4.00-5.40); WHITE BLOOD COUNT 9.4 10^3/uL (4.0-10.0)
[2019-04-18] MEDS: LATANOPROST 0.005% OPHTH SOLN 2.5 ML OU SCH (20:11)
[2019-04-18 22:00] VITALS: BP 124/64
[2019-04-19] MEDS: SODIUM CHLORIDE 0.9% INJ 10 ML SYR IV PRN ×2 (01:19→18:12)
[2019-04-19] MEDS: PANTOPRAZOLE 40MG INJ (PROTONIX) (C9113) IV SCH ×2 (01:19→12:31)
[2019-04-19 02:00] VITALS: BP 127/83
[2019-04-19] MEDS: LEVALBUTEROL 1.25 MG/0.5 ML CONCENTRATE NEB INH SCH ×6 (04:01→23:48)
[2019-04-19] MEDS: SUCRALFATE SUSP 1GM/10ML UD PO SCH ×3 (05:37→18:13)
[2019-04-19] MEDS: HumaLOG INSULIN (NovoLOG) PER UNIT SC SCH ×4 (05:38→18:13)
[2019-04-19 06:00] VITALS: BP 122/56
[2019-04-19] MEDS: SODIUM CHLORIDE 0.9% INJ 10 ML SYR IV SCH ×2 (06:02→12:32)
[2019-04-19 06:16] LABS: HEMATOCRIT 25.4 % (36.0-47.0); HEMOGLOBIN 8.2 g/dl (12.0-15.5); MEAN CORPUSCULAR HEMOGLOBIN 33.5 pg (27.0-33.0); MEAN CORPUSCULAR HGB CONC 32.3 g/dl (32.0-36.5); MEAN CORPUSCULAR VOLUME 103.7 fl (80.0-96.0); PLATELET COUNT, AUTOMATED 225 10^3/uL (150-450); RED BLOOD COUNT 2.45 10^6/uL (4.00-5.40); WHITE BLOOD COUNT 12.2 10^3/uL (4.0-10.0)
[2019-04-19 07:27] LABS: CALCIUM LEVEL 8.1 MG/DL (8.8-10.2); CREATININE FOR GFR 1.71 MG/DL (0.55-1.30); GLOMERULAR FILTRATION RATE 30.5 (>32); POTASSIUM SERUM 4.2 MEQ/L (3.5-5.1)
[2019-04-19] MEDS: ADVAIR HFA 230/21MCG INHALER INH SCH ×2 (07:51→19:42)
[2019-04-19] MEDS: IPRATROPIUM HFA INHALER 12.9 GRAMS (ATROVENT HFA) INH SCH ×2 (07:51→19:43)
[2019-04-19] MEDS: MOXIFLOXACIN HCL 400 MG in APPROPRIATE DILUENT 1 EA IV SCH (09:41)
[2019-04-19] MEDS: POTASSIUM CHLORIDE 10 MEQ SR TABLET PO SCH (09:41)
[2019-04-19] MEDS: predniSONE 20 MG TAB PO SCH (09:41)
[2019-04-19] MEDS: BRINZOLAMIDE 1 % OPHTH SUSP (AZOPT) 10ML OU SCH ×2 (09:41→21:54)
[2019-04-19] MEDS: LEVEMIR (INSULIN DETEMIR) 1 UNITS/0.01ML SC SCH ×2 (09:42→21:54)
[2019-04-19] MEDS: CALCITRIOL 0.25 MCG CAP (S0169) PO SCH (09:42)
[2019-04-19 10:44] VITALS: BP 120/47
--- NOTE | 2019-04-19 12:14 | IPNPDOC ---
Subjective Date Seen The patient was seen on 04/19/19. Subjective Chief Complaint/HPI Continues to have SOB and still requiring oxygen, continues to have wheezing. Has some conversational dyspnea. Had an episode of clarita last night. Denies any abdominal pain , nausea or vomiting. No fever or chills. Has cough with increased phlegm production. Objective Physical Examination General Exam: Positive: Alert, Cooperative, Mild Distress Eye Exam: Positive: PERRLA, Conjunctiva & lids normal, EOMI; Negative: Sclera icteric ENT Exam: Positive: Atraumatic, Mucous membr. moist/pink, Pharynx Normal Neck Exam: Positive: Supple; Negative: JVD, thyromegaly Chest Exam: Positive: Rhonchi, Wheezing, Diminished Heart Exam: Positive: Rate Normal, Regular Rhythm, Normal S1, Normal S2; Negative: Murmurs, Rubs Telemetry: Positive: No significant arrhythmia Abdomen Exam: Positive: Normal bowel sounds, Soft; Negative: Tenderness, Hepatospenomegaly Extremity Exam: Negative: Clubbing, Cyanosis, Edema Skin Exam: Positive: Nl turgor and temperature; Negative: Rash, Breakdown Assessment /Plan Assessment Right acute DVT with left leg chronic DVT since 2017. was on xarelto at home still developed new dvt. Now with recent hematemesis. So xarelto stopped for now Had an IVC filter placed on 04/18/19 Hypoxia due to COPD exacerbation. Hematemesis acute upper gastrointestinal (GI) bleed in the setting of Xarelto use. Recent nasogastric (NG) tube placement. Possible stress ulceration . Patient is currently on Protonix, Carafate. HH stable. Did have clarita overnight. will check HH this evening if starts dropping will need EGD. No GI coverage this week will have to be done by surgery. Acute blood loss anemia. Type and screen. Transfuse if hemoglobin is less than 8 or persistent bleeding. Chronic obstructive pulmonary disease exacerbation with hypoxia requiring 2 l oxygen not on oxygen at home. No pulmonary edema on chest x-ray. Has chronic interstitial disease. 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 Steroid-induced leukocytosis. Due to complaints of shortness of breath, slight cough, chest x-ray obtained. It showed could not exclude pneumonia. Will obtain a chest x-ray, PA and lateral, today and antibiotics if needed. History of coronary artery disease s/p stents No issues at present. 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 Now creatinine improving. Renal ultrasound negative for obstruction. Most likely due to diuresis. No signs of femoral compartment syndrome. Diabetes. sugars controlled. continue lispro and levemir GERD on PPI Glaucoma and Macular degeneration Plan/VTE VTE Prophylaxis Ordered?: Yes VS, I&O, 24H, Fishbone Vital Signs/I&O Vital Signs Date Time Temp Pulse Resp B/P (MAP) Pulse Ox O2 Delivery O2 Flow Rate FiO2 04/19/19 10:44 98.1 59 18 120/47 (71) 98 2.0 04/15/19 22:34 Nasal Cannula I&O- Last 24 Hours up to 6 AM 04/19/19 06:00 Intake Total 1450 ml Output Total 600 ml Balance 850 ml Laboratory Data 24H LABS Laboratory Tests 2 04/18/19 13:21: Bedside Glucose (Misc Panel) 310H 04/18/19 16:49: Nucleated Red Blood Cells % (auto) 0.0 04/18/19 17:47: Bedside Glucose (Misc Panel) 374H 04/19/19 05:25: Bedside Glucose (Misc Panel) 135H 04/19/19 05:56: Nucleated Red Blood Cells % (auto) 0.2H, Anion Gap 7L, Glomerular Filtration Rate 30.5L, Blood Urea Nitrogen 49H, Creatinine 1.71H, Sodium Level 139, Potassium Level 4.2, Chloride Level 112H, Carbon Dioxide Level 20L, Calcium Level 8.1L CBC/BMP Laboratory Tests 04/18/19 16:49 Red Blood Count 2.48 L, Mean Corpuscular Volume 102.0 H, Mean Corpuscular Hemoglobin 33.1 H, Mean Corpuscular Hemoglobin Concent 32.4, Red Cell Distribution Width 13.5 04/19/19 05:56 Red Blood Count 2.45 L, Mean Corpuscular Volume 103.7 H, Mean Corpuscular Hemoglobin 33.5 H, Mean Corpuscular Hemoglobin Concent 32.3, Red Cell Distribution Width 13.8, Calcium Level 8.1 L Microbiology Microbiology 04/17/19 Stool Occult Blood (ROBLES) - Final, Complete 04/09/19 Urine Culture - Final, Complete Klebsiella Pneumoniae ELVIN ALFARO MD Apr 19, 2019 12:13
[2019-04-19 14:00] VITALS: BP 130/60
--- NOTE | 2019-04-19 17:35 | REP ---
CT chest without contrast: History: Shortness of breath. Comparison CT study of the chest is from May 14, 2018. CT findings: A bipolar pacemaker is seen in the right heart via the left side. There are clips in the upper abdomen bilaterally. A right-sided PICC line is noted terminating in the superior vena cava. There is a tiny sliver of pleural fluid in the posterior lung gutters bilaterally. No significant effusion is seen. There are atelectatic changes in the lower lobes bilaterally and symmetrically which are new from the prior CT study. There are plate-like atelectatic changes in the left upper lobe and right middle lobe. There is an ill-defined somewhat nodular neodensity in the right upper lobe abutting the major fissure on today's axial CT study page 47 of 106 in series 201 area this measures 9 mm in greatest diameter. It is a new finding compared with the prior study. There is a second ill-defined nodular density in the right upper lobe superior and lateral to the 7 mm in diameter, axial page 43. There is some patchy right upper lobe peripheral nodular opacity posteriorly which is also new. These changes may be inflammatory. There is patchy infiltrate in the right middle lobe anterolaterally. Impression: Bilateral lower lobe discoid atelectasis right middle lobe and left upper lobe discoid atelectasis. Patchy areas of inflammatory appearing parenchymal opacification and nodularity as above. This is most prominent in the right middle lobe consistent with pneumonia. Electronically Signed by Barry Rodrigez MD 04/19/2019 09:09 P
[2019-04-19 18:00] VITALS: BP 132/60
[2019-04-19 18:37] LABS: HEMATOCRIT 24.9 % (36.0-47.0); HEMOGLOBIN 8.2 g/dl (12.0-15.5); MEAN CORPUSCULAR HEMOGLOBIN 32.4 pg (27.0-33.0); MEAN CORPUSCULAR HGB CONC 32.9 g/dl (32.0-36.5); MEAN CORPUSCULAR VOLUME 98.4 fl (80.0-96.0); PLATELET COUNT, AUTOMATED 239 10^3/uL (150-450); RED BLOOD COUNT 2.53 10^6/uL (4.00-5.40); WHITE BLOOD COUNT 14.8 10^3/uL (4.0-10.0)
[2019-04-19] MEDS ORDERED: HumaLOG INSULIN (NovoLOG) PER UNIT SC SCH (21:00)
[2019-04-19] MEDS: LATANOPROST 0.005% OPHTH SOLN 2.5 ML OU SCH (21:54)
[2019-04-19 22:00] VITALS: BP 135/78
[2019-04-20] VITALS (11 sets, daily range): BP systolic 115–144; BP diastolic 60–78; O2SAT 95
[2019-04-20] MEDS: HumaLOG INSULIN (NovoLOG) PER UNIT SC SCH ×5 (00:09→21:00)
[2019-04-20] MEDS: SUCRALFATE SUSP 1GM/10ML UD PO SCH ×4 (00:09→16:50)
[2019-04-20] MEDS: PANTOPRAZOLE 40MG INJ (PROTONIX) (C9113) IV SCH ×2 (01:30→15:19)
[2019-04-20] MEDS: SODIUM CHLORIDE 0.9% INJ 10 ML SYR IV PRN (01:31)
[2019-04-20] MEDS: LEVALBUTEROL 1.25 MG/0.5 ML CONCENTRATE NEB INH SCH ×5 (03:07→20:08)
[2019-04-20] MEDS: SODIUM CHLORIDE 0.9% INJ 10 ML SYR IV SCH ×2 (05:21→16:49)
--- NOTE | 2019-04-20 07:16 | ECHO ---
DATE OF PROCEDURE: 04/17/2019 DATE OF : 1935 AGE: 83 GENDER: Female. HEIGHT: 67 inches. WEIGHT 191 pounds. BODY SURFACE AREA: 1.98 meters squared UNPATIENT: [facility]11 REFERRING PHYSICIAN: Dr. Liliya Conrad INDICATION: Nonsustained supraventricular tachycardia. 2-D Measurements: RV: 4.2 cm LV: 4.4 cm Septum: 0.9 cm Posterior wall: 0.9 cm Aortic root: 2.7 cm LA: 3.5 cm LVEF: 75% Doppler Measurements: AV: 1.41 m/s LVOT: 1.05 m/s LVOT diameter: 1.9 cm MV - E 94 A 136 EA ratio 0.7 Early mitral deceleration time: 232 ms E prime: 5.4 A prime 12 E/E prime ratio: 17.1 PCWP: 21.3 mmHg PV: 0.9 m/s Pulmonary artery acceleration time: 88 ms RVSP: 45-50 mmHg IVC: 2.2 cm COMMENTS: Normal sinus rhythm with atrial sensing and tracking with ventricular paced rhythm. Technically challenging study in light of the patient's body habitus, but diagnostically useful information was still obtained. M-mode and two-dimensional echocardiography was performed with pulsed, continuous wave, color flow and tissue Doppler studies. Normal left ventricular size, wall thickness and hyperkinetic wall motion. Borderline left atrial enlargement with an impairment of LV diastolic function and currently elevated mean left atrial pressure. Mildly dilated right heart chambers with normal wall motion and Doppler evidence of at least moderate pulmonary hypertension. IVC size upper limits of normal with reduced respiratory collapse suggestive of an elevated central venous pressure. Mild aortic valvular sclerosis without stenosis and only trace insufficiency. Moderate mitral annular calcification without inflow tract obstruction and only very mild insufficiency. Normal tricuspid valve with mild insufficiency. Pacing leads could be visualized traversing right heart structures, but no separate intracardiac mass. No pericardial effusion.
[2019-04-20] MEDS ORDERED: HumaLOG INSULIN (NovoLOG) PER UNIT SC SCH (07:30)
[2019-04-20] MEDS: IPRATROPIUM HFA INHALER 12.9 GRAMS (ATROVENT HFA) INH SCH ×2 (07:34→20:07)
[2019-04-20] MEDS: ADVAIR HFA 230/21MCG INHALER INH SCH ×2 (07:34→20:07)
[2019-04-20 07:58] LABS: CALCIUM LEVEL 7.8 MG/DL (8.8-10.2); CREATININE FOR GFR 1.56 MG/DL (0.55-1.30); GLOMERULAR FILTRATION RATE 33.9 (>32)
--- NOTE | 2019-04-20 08:10 | RO ---
DATE OF PROCEDURE: 04/18/2019 ATTENDING SURGEON: Dr. Jennifer Wolfe. ENVIRONMENTAL REMEDIATION ENGINEER: Jacek Galindo and Adrianne Miguel. POSTOPERATIVE DIAGNOSIS: Poor IV access, bilateral lower extremity DVT, hematemesis, small bowl obstruction. POSTOPERATIVE DIAGNOSIS: Poor IV access, bilateral lower extremity DVT, hematemesis, small bowl obstruction. PROCEDURE: Ultrasound and fluoroscopic guided right basilic vein 47 centimeter PICC line placement. INDICATION: The patient is an 83-year-old female with bilateral lower extremity DVT which is acute and chronic as well as poor IV access and a small bowel obstruction. The patient underwent placement of an inferior vena cava filter and will now undergo placement of a PICC line. ANESTHESIA: Local. ESTIMATED BLOOD LOSS: Minimal. IV FLUIDS: 50 mL. FLUOROSCOPIC TIME: 0.1 minutes. CONTRAST: None. COMPLICATIONS: None. DRAINS: None. IMPLANTS: None. PROCEDURE: The patient remained on the table after undergoing cannulation of the right basilic vein for placement of the inferior vena cava filter. The sheath for the inferior vena cava filter placement was removed over a Bentson wire a micropuncture sheath was advanced over the Bentson wire which was then cannulated using the O and 8 wire which was placed in the tip in the superior vena cava right atrial junction. This was measured from the access site in the right antecubital fossa to the tip of his ER maintains right atrial junction which correlated with 47 cm. The PICC line was cut 47 cm. The micropuncture sheath was removed and exchanged for the introducer sheath. The PICC line was advanced to the introducer sheath and positioned with the tip in the superior vena cava right atrial junction introducer sheath was peeled away and removed. Both ports were aspirated and noted to aspirate easily and flushed heparinized saline. Dressings were then applied. The patient tolerated procedure well. All instrument, sponge, needle counts were correct at the end of the case. There were no complications. Dr. Wolfe was present for directed the entire case. The patient was transferred to the holding area subsequently to the floor in stable condition. The right basilic vein 47 cm PICC line was stable for use.
[2019-04-20 08:12] LABS: HEMATOCRIT 24.7 % (36.0-47.0); HEMOGLOBIN 7.9 g/dl (12.0-15.5); MEAN CORPUSCULAR HEMOGLOBIN 31.7 pg (27.0-33.0); MEAN CORPUSCULAR VOLUME 99.2 fl (80.0-96.0); PLATELET COUNT, AUTOMATED 261 10^3/uL (150-450); RED BLOOD COUNT 2.49 10^6/uL (4.00-5.40)
[2019-04-20] MEDS: CALCITRIOL 0.25 MCG CAP (S0169) PO SCH (08:43)
[2019-04-20] MEDS: predniSONE 20 MG TAB PO SCH (08:43)
[2019-04-20] MEDS: POTASSIUM CHLORIDE 10 MEQ SR TABLET PO SCH (08:43)
[2019-04-20] MEDS: BRINZOLAMIDE 1 % OPHTH SUSP (AZOPT) 10ML OU SCH ×2 (08:44→19:58)
[2019-04-20] MEDS: LEVEMIR (INSULIN DETEMIR) 1 UNITS/0.01ML SC SCH ×2 (08:44→21:28)
--- NOTE | 2019-04-20 08:49 | IPNPDOC ---
Subjective Date Seen The patient was seen on 04/20/19. Subjective Chief Complaint/HPI SOB is slowly improving. needing less oxygen. Able to talk in full sentences without dyspnea. No fever or chills, Has cough with phlegm production. HH dropping slowly. EGD today. will keep NPO. Objective Physical Examination General Exam: Positive: Alert, Cooperative, Mild Distress Eye Exam: Positive: PERRLA, Conjunctiva & lids normal, EOMI; Negative: Sclera icteric ENT Exam: Positive: Atraumatic, Mucous membr. moist/pink, Pharynx Normal Neck Exam: Positive: Supple; Negative: JVD, thyromegaly Chest Exam: Positive: Rhonchi, Wheezing, Diminished Heart Exam: Positive: Rate Normal, Regular Rhythm, Normal S1, Normal S2; Negative: Murmurs, Rubs Telemetry: Positive: No significant arrhythmia Abdomen Exam: Positive: Normal bowel sounds, Soft; Negative: Tenderness, Hepatospenomegaly Extremity Exam: Negative: Clubbing, Cyanosis, Edema Skin Exam: Positive: Nl turgor and temperature; Negative: Rash, Breakdown Assessment /Plan Assessment Right acute DVT with left leg chronic DVT since 2017. was on xarelto at home still developed new dvt. Now with recent hematemesis. So xarelto stopped for now Had an IVC filter placed on 04/18/19 Hypoxia improving , requiring less oxygen. due to COPD exacerbation. Hemetemesis acute upper gastrointestinal (GI) bleed in the setting of Xarelto use. Recent nasogastric (NG) tube placement. Possible stress ulceration . HH down trending. Patient is currently on Protonix, Carafate. planned for EGD today. NPO. Acute blood loss anemia. from GIB. will check iron panel , vit b12 and folate. Transfuse PRN. Pneumonia in CT chest continue avelox. Chronic obstructive pulmonary disease exacerbation with hypoxia requiring 2 l oxygen not on oxygen at home. No pulmonary edema on chest x-ray. Has chronic interstitial disease. 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 Steroid-induced leukocytosis. Due to complaints of shortness of breath, slight cough, chest x-ray obtained. It showed could not exclude pneumonia. Will obtain a chest x-ray, PA and lateral, today and antibiotics if needed. History of coronary artery disease s/p stents No issues at present. H/o Stephany tyle 2 heart block s/p pacemaker Acute on chronic renal failure. Now creatinine improving. Renal ultrasound negative for obstruction. Most likely due to diuresis. No signs of femoral compartment syndrome. Diabetes. sugars controlled. continue lispro and levemir GERD on PPI Glaucoma and Macular degeneration Plan/VTE VTE Prophylaxis Ordered?: Yes VS, I&O, 24H, Fishbone Vital Signs/I&O Vital Signs Date Time Temp Pulse Resp B/P (MAP) Pulse Ox O2 Delivery O2 Flow Rate FiO2 04/20/19 06:00 97.8 82 23 141/63 (89) 96 1.0 04/15/19 22:34 Nasal Cannula I&O- Last 24 Hours up to 6 AM 04/20/19 06:00 Intake Total 1160 ml Output Total 800 ml Balance 360 ml Laboratory Data 24H LABS Laboratory Tests 2 04/19/19 11:58: Bedside Glucose (Misc Panel) 191H 04/19/19 17:44: Bedside Glucose (Misc Panel) 249H 04/19/19 18:14: Nucleated Red Blood Cells % (auto) 0.2H 04/19/19 22:04: Bedside Glucose (Misc Panel) 290H 04/20/19 00:17: Bedside Glucose (Misc Panel) 260H 04/20/19 05:27: Nucleated Red Blood Cells % (auto) 0.3H, Anion Gap 7L, Glomerular Filtration Rate 33.9, Blood Urea Nitrogen 39H, Creatinine 1.56H, Sodium Level 141, Potassium Level 4.0, Chloride Level 113H, Carbon Dioxide Level 21, Calcium Level 7.8L CBC/BMP Laboratory Tests 04/19/19 18:14 Red Blood Count 2.53 L, Mean Corpuscular Volume 98.4 H, Mean Corpuscular Hemoglobin 32.4, Mean Corpuscular Hemoglobin Concent 32.9, Red Cell Distribution Width 13.8 04/20/19 05:27 Red Blood Count 2.49 L, Mean Corpuscular Volume 99.2 H, Mean Corpuscular Hemoglobin 31.7, Mean Corpuscular Hemoglobin Concent 32.0, Red Cell Distribution Width 13.9, Calcium Level 7.8 L Microbiology Microbiology 04/17/19 Stool Occult Blood (ROBLES) - Final, Complete ELVIN ALFARO MD Apr 20, 2019 08:48
[2019-04-20] MEDS: MOXIFLOXACIN HCL 400 MG in APPROPRIATE DILUENT 1 EA IV SCH (09:17)
[2019-04-20 17:36] LABS: PERCENT SATURATION 6.7 % (13.2-45.0)
--- NOTE | 2019-04-20 17:41 | IPN ---
DATE: 04/19/2019 HISTORY: The patient was admitted 10 days ago with a small bowel obstruction. This subsequently resolved and I thought she might be ready for discharge last weekend, but she began complaining of more increased shortness of breath. She has been managed for this complaint by the hospitalists with initially some steroids and increased nebulizer treatments. She had a duplex scan her lower extremities yesterday that showed evidence for a new clot in the right lower extremity and an old clot on the left. Because of her recent episode of hematemesis, the hospitalist had a [place] filter placed and did not institute anticoagulation. The patient has also had a peripherally inserted central catheter (PICC) line inserted. A chest CT was done earlier today and apparently based on this, the patient was started on antibiotic therapy with moxifloxacin. Vital signs show that the patient is afebrile. Her pulse is in the 70s generally with a good blood pressure. Intake and output shows that yesterday she had 1800 in with 750 out. She does have regular bowel function with bowel movements. Her weight is stable. PHYSICAL EXAMINATION: The patient is alert and oriented and rouses readily from sleep. Heart examination shows a regular rhythm. The lungs are clear. The abdomen is soft without any significant tenderness. LABORATORY STUDIES: Today show a white count of 12, hemoglobin of 8, hematocrit of 25, and a platelet count of 225,000. Her hematocrit has remained stable over the last several days. Additional chemistry shows a sodium of 139, potassium 4.2, chloride 112, CO2 of 20, BUN of 49 and a creatinine of 1.7, and the BUN and creatinine are both significantly improved from yesterday. Her glucose was 138. IMPRESSION: The patient's bowel function remains good with no sign of obstruction. She has had a [place] filter placed for a deep vein thrombosis (DVT) with some contraindication to anticoagulation. She is now on antibiotics based on a CT scan of the chest and this is all being managed by the hospitalist. PLAN: The patient, from a general surgery standpoint in regard to her admitting diagnosis of a bowel obstruction, seems ready for discharge whenever her other medical issues have been stabilized. I will remain available in case any surgical issues present but otherwise leave her care to the hospitalist team at this point.
[2019-04-20 17:44] LABS: FOLATE 7.5 NG/ML (>5.4)
[2019-04-20] MEDS ORDERED: PROPOFOL 200 MG/20 ML VIAL As Ordered ONE (17:48)
[2019-04-20] MEDS ORDERED: LIDOCAINE 2% INJ 100 MG/5 ML SDV (FOR ANES.) As Ordered ONE (17:48)
--- NOTE | 2019-04-20 18:48 | RO ---
DATE OF PROCEDURE: 04/20/2019 PREOPERATIVE DIAGNOSIS: Question of upper gastrointestinal (GI) bleed/hematemesis. POSTOPERATIVE DIAGNOSIS: Hiatal hernia. No evidence of recent GI bleed. PROCEDURE: Upper endoscopy (EGD). SURGEON: Dr. Oscar Jeffers [employer]; ANESTHESIA: Propofol/sedation. BRIEF PROCEDURE SUMMARY: The patient was brought to the operating room (OR) suite, was given IV sedation, was placed in a left lateral decubitus position and the gastroscope was inserted in the posterior oropharynx, down the esophagus without difficulty. The scope was inserted into the stomach and then through the pylorus into the duodenal bulb and then the postbulbar duodenum. The duodenum first and second portion as well as the bulb looked normal without any evidence of erythema, drainage or discharge. The stomach looked normal without evidence of gastritis. There were a couple of superficial petechiae appreciated with probable nasogastric (NG) tube insertion in the past, but otherwise no other source of bleeding. She did have some residual food that was left over from breakfast approximately 10 hours ago. She did have a hiatal hernia that was small to medium in size, but no evidence of inflammation was appreciated. No evidence of Tanika-Crook tear. No evidence of reflux esophagitis. The esophagus was otherwise normal without any masses, lesions or exudates. The patient had a few little white patches that were easily washed away, and I anticipate was secondary to her medication/inhalers, steroids, etc. Otherwise no evidence of bleeding in the esophagus either. IMPRESSION AND PLAN: At this point, no evidence of upper GI bleed and thus I would recommend continuing with anticoagulation as so desired. There is no contraindication from my surgical standpoint. I will restart her on her regular diet and otherwise will sign off for now.
[2019-04-20] MEDS: LATANOPROST 0.005% OPHTH SOLN 2.5 ML OU SCH (19:58)
[2019-04-21] VITALS (7 sets, daily range): BP systolic 121–171; BP diastolic 58–88
[2019-04-21] MEDS: SUCRALFATE SUSP 1GM/10ML UD PO SCH ×4 (00:08→17:01)
[2019-04-21] MEDS: LEVALBUTEROL 1.25 MG/0.5 ML CONCENTRATE NEB INH SCH ×6 (00:10→20:48)
[2019-04-21] MEDS: PANTOPRAZOLE 40MG INJ (PROTONIX) (C9113) IV SCH (02:18)
[2019-04-21] MEDS: SODIUM CHLORIDE 0.9% INJ 10 ML SYR IV SCH ×2 (05:25→17:01)
[2019-04-21 05:39] LABS: HEMOGLOBIN 7.5 g/dl (12.0-15.5); MEAN CORPUSCULAR HEMOGLOBIN 32.5 pg (27.0-33.0); MEAN CORPUSCULAR HGB CONC 32.6 g/dl (32.0-36.5); MEAN CORPUSCULAR VOLUME 99.6 fl (80.0-96.0); PLATELET COUNT, AUTOMATED 244 10^3/uL (150-450); RED BLOOD COUNT 2.31 10^6/uL (4.00-5.40); WHITE BLOOD COUNT 12.5 10^3/uL (4.0-10.0)
[2019-04-21 05:58] LABS: CREATININE FOR GFR 1.49 MG/DL (0.55-1.30); GLOMERULAR FILTRATION RATE 35.8 (>32); POTASSIUM SERUM 4.4 MEQ/L (3.5-5.1)
[2019-04-21] MEDS ORDERED: CYANOCOBALAMIN 1,000 MCG/ML VIAL (J3420) IM ONE (06:15)
[2019-04-21] MEDS: IPRATROPIUM HFA INHALER 12.9 GRAMS (ATROVENT HFA) INH SCH ×2 (07:24→20:48)
[2019-04-21] MEDS: ADVAIR HFA 230/21MCG INHALER INH SCH ×2 (07:24→20:48)
[2019-04-21] MEDS: FERROUS GLUCONATE 324 MG TAB PO SCH ×2 (08:04→20:37)
[2019-04-21] MEDS: CALCITRIOL 0.25 MCG CAP (S0169) PO SCH (08:04)
[2019-04-21] MEDS: CYANOCOBALAMIN 500 MCG TAB PO SCH (08:04)
[2019-04-21] MEDS: POTASSIUM CHLORIDE 10 MEQ SR TABLET PO SCH (08:04)
[2019-04-21] MEDS: predniSONE 20 MG TAB PO SCH (08:04)
[2019-04-21] MEDS: HumaLOG INSULIN (NovoLOG) PER UNIT SC SCH ×4 (08:05→20:28)
[2019-04-21] MEDS: BRINZOLAMIDE 1 % OPHTH SUSP (AZOPT) 10ML OU SCH ×2 (08:05→20:36)
[2019-04-21] MEDS: LEVEMIR (INSULIN DETEMIR) 1 UNITS/0.01ML SC SCH ×2 (08:05→20:28)
[2019-04-21] MEDS: MOXIFLOXACIN HCL 400 MG in APPROPRIATE DILUENT 1 EA IV SCH (09:39)
--- NOTE | 2019-04-21 10:00 | IPNPDOC ---
Date Seen The patient was seen on 04/21/19. Progress Note Vascular Surgery Dr Wolfe HPI: 83year oldF admitted 04/09/19 with abdominal pain, n/v, SBO. The pt is on Xarelto as outpt related to h/o recurrent DVT. On admission, the pt's Xarelto was held for possible surgery. On 04/14 the pt's diet was advanced but on 04/15 the pt had emesis and 04/16 small amount of hematemesis. The pt had BLE US related to pain and swelling 04/17/19 indicating acute DVT RLE. Vascular Surgery was consulted for IVC Filter. AC remains on hold. Denies any fevers, chills, weakness, fatigue, Headache, Chest Pain, Shortness of breath, cough, palpitations, bladder habits. PMHx: CAD/stent COPD HTN IDDM Chronic DVT LLE on Xarelto as outpt glaucoma SSS/pacemaker PSHX: subtotal colectomy hysterectomy. Cholecystectomy. Appendectomy. Multiple breast biopsies. Cataract surgery bilaterally. History of an RCA stent in 2004. Pacemaker PE: GEN: 83yoF, appears stated age. Alert and oriented x 3. HEENT: Normocephalic, atraumatic. Moist mucous membranes. CHEST: Regular rate and rhythm, +S1, +S2 LUNGS: Wheezes noted bilaterally. No accessory muscle use. ABD: Round, soft, non-tender, non-distended. EXT: No lower extremity edema, erythema appreciated. NEURO: Alert and oriented x 3. No focal deficits appreciated. A&P: 1. Acute DVT RLE, H/O chronic DVT LLE. Xarelto remains on hold. S/P IVC filter as per Dr Wolfe 04/18/19. Plan for outpt FU with Dr Wolfe 3 mo for consideration of removal of IVC filter. Re consult vascular as needed. VS, I&O, 24H, Fishbone Vital Signs/I&O Vital Signs Date Time Temp Pulse Resp B/P (MAP) Pulse Ox O2 Delivery O2 Flow Rate FiO2 04/21/19 06:00 98.0 85 17 121/78 (92) 96 0.5 04/20/19 20:10 Nasal Cannula I&O- Last 24 Hours up to 6 AM 04/21/19 06:00 Intake Total 986 ml Output Total 450 ml Balance 536 ml Laboratory Data 24H LABS Laboratory Tests 2 04/20/19 11:34: Bedside Glucose (Misc Panel) 136H 04/20/19 16:45: Bedside Glucose (Misc Panel) 254H 04/20/19 16:54: Iron Level 17L, Total Iron Binding Capacity 253, Transferrin % Saturation 6.7L, Ferritin 33, Vitamin B12 Level 322, Folate 7.5 04/20/19 18:49: Bedside Glucose (Misc Panel) 228H 04/21/19 05:23: Nucleated Red Blood Cells % (auto) 0.2H, Anion Gap 8, Glomerular Filtration Rate 35.8, Blood Urea Nitrogen 34H, Creatinine 1.49H, Sodium Level 143, Potassium Level 4.4, Chloride Level 115H, Carbon Dioxide Level 20L, Calcium Level 8.0L CBC/BMP Laboratory Tests 04/21/19 05:23 Red Blood Count 2.31 L, Mean Corpuscular Volume 99.6 H, Mean Corpuscular Hemoglobin 32.5, Mean Corpuscular Hemoglobin Concent 32.6, Red Cell Distribution Width 13.8, Calcium Level 8.0 L Microbiology Microbiology 04/17/19 Stool Occult Blood (ROBLES) - Final, Complete Silvia Barraza Apr 21, 2019 10:00
--- NOTE | 2019-04-21 11:36 | IPNPDOC ---
Subjective General Date/Time Seen The patient was seen on 04/21/19 at 11:34. Subject Chief Complaint/History The patient is a 83-year-old female admitted with a reason for visit of Small Bowel Obstruction Due To Adhesion. Patient seen this morning. Looks comfortable. She says she is tolerating her diet. I requested Dr. Jeffers to do an upper GI endoscopy on her for concerns that she may have some bleeding. She dropped her hemoglobin and hematocrit and she was at times complaining of epigastric discomfort. Upper GI endoscopy results noted. She reports she is having regular bowel movements. Current Medications Current Medications Current Medications Medications (Trade) Dose Ordered Sig/Susan Route PRN Reason Start Time Stop Time Status Last Admin Dose Admin Acetaminophen (Tylenol Tab) 650 mg Q4HP PRN PO MILD PAIN or TEMP > 101 04/09/19 10:00 Albuterol Sulfate (Proventil, Ventolin Hfa) 2 puff Q4H PRN INH SHORTNESS OF BREATH 04/09/19 10:00 04/18/19 10:15 DC 04/15/19 09:23 Albuterol/ Ipratropium (Duoneb (Ipr 0.5mg/Alb 2.5mg)) 3 ml RQ6H NEB 04/15/19 08:00 04/18/19 10:15 DC 04/17/19 07:59 Brinzolamide (Azopt) 1 drop BID OU 04/09/19 21:00 04/21/19 08:05 Brinzolamide (Azopt) 1 drop BID OU 04/10/19 09:00 04/10/19 09:00 DC Calcitriol (Rocaltrol) 0.25 mcg DAILY PO 04/14/19 09:00 04/21/19 08:04 Cyanocobalamin (Vitamin B12) 500 mcg DAILY PO 04/21/19 09:00 04/21/19 08:04 Dextrose (Dextrose 50%) 25 ml ASDIRECTED PRN IV SEE LABEL COMMENTS 04/16/19 12:45 Dextrose/Sodium Chloride 1,000 ml @ 50 mls/hr Q20H IV 04/17/19 12:11 04/18/19 07:09 DC 04/18/19 08:59 Ferrous Gluconate (Fergon) 324 mg BID PO 04/21/19 09:00 04/21/19 08:04 Glucagon (Glucagon) 1 mg ASDIRECTED PRN SC SEE LABEL COMMENTS 04/16/19 12:45 Glucose (Glucose) 16 GM ASDIRECTED PRN PO SEE LABEL COMMENTS 04/16/19 12:45 Heparin Sodium (Heparin (Flush)) 200 units ASDIRECTED PRN IV SEE LABEL COMMENTS 04/18/19 13:15 04/20/19 01:31 Heparin Sodium (Heparin (Flush)) 200 units PICC IV 04/18/19 18:00 04/21/19 05:25 Home Med (Med Rec Complete!) ASDIRECTED XX 04/09/19 08:15 04/09/19 08:15 DC Insulin Detemir (Levemir Insulin) 10 units BID SC 04/17/19 21:00 04/19/19 12:14 DC 04/19/19 09:42 Insulin Detemir (Levemir Insulin) 20 units BID IL 04/19/19 21:00 04/21/19 08:05 Insulin Human Lispro (HumaLOG INSULIN) SEE PROTOCOL TABLE AC IL 04/16/19 12:00 04/17/19 20:13 DC 04/17/19 16:46 Insulin Human Lispro (HumaLOG INSULIN) SEE PROTOCOL TABLE Q6H IL 04/18/19 00:00 04/19/19 23:31 DC 04/19/19 18:13 Insulin Human Lispro (HumaLOG INSULIN) SEE PROTOCOL TABLE Q6H IL 04/09/19 12:00 04/15/19 21:47 DC 04/15/19 18:39 Insulin Human Lispro (HumaLOG INSULIN) SEE PROTOCOL TABLE QHS IL 04/16/19 21:00 UNV Insulin Human Lispro (HumaLOG INSULIN) See Protocol Table AC IL 04/20/19 07:30 04/21/19 08:05 Insulin Human Lispro (HumaLOG INSULIN) See Protocol Table AC IL 04/20/19 07:30 Cancel Insulin Human Lispro (HumaLOG INSULIN) See Protocol Table [facility] 04/15/19 21:00 04/17/19 20:13 DC 04/16/19 21:03 Insulin Human Lispro (HumaLOG INSULIN) See Protocol Table QHS [place] 04/19/19 21:00 04/20/19 00:09 Insulin Human Lispro (HumaLOG INSULIN) See Protocol Table QHS [place] 04/19/19 21:00 Cancel Ipratropium Stanton (Atrovent Hfa) 2 puff RBID INH 04/18/19 08:00 04/21/19 07:24 Ketorolac Tromethamine (ToRADol) 15 mg Q6HP PRN IV MILD/MODERATE PAIN (PS 1-7) 04/09/19 10:00 04/14/19 09:59 DC Lactated Ringer's 1,000 ml @ 75 mls/hr [id number] IV 04/09/19 09:49 04/12/19 11:07 DC 04/12/19 03:51 Latanoprost (Xalatan 0.005% Op Soln) 1 drop QHS OU 04/09/19 21:00 04/20/19 19:58 Levalbuterol HCl (Xopenex Neb) 0.63 mg RQ4H INH 04/18/19 12:00 04/21/19 11:17 Levalbuterol HCl (Xopenex Neb) 1.25 mg Q1HP PRN INH SHORTNESS OF BREATH 04/15/19 12:00 04/16/19 09:04 Levalbuterol HCl (Xopenex Neb) 1.25 mg RQ4H INH 04/16/19 16:00 04/18/19 07:09 DC 04/18/19 04:01 Levalbuterol HCl (Xopenex Neb) 1.25 mg RQID INH 04/15/19 16:00 04/16/19 12:05 DC 04/16/19 11:22 Morphine Sulfate (Morphine Sulfate Inj) 2 mg Q2HP PRN IV SEVERE PAIN (PS 8-10) 04/09/19 10:00 04/14/19 11:40 DC Morphine Sulfate (Morphine Sulfate Inj) 4 mg Q15M PRN IV CHEST PAIN 04/09/19 04:45 04/09/19 09:59 DC 04/09/19 05:05 Moxifloxacin HCl 400 mg/IV Miscellaneous Supplies 250 ml @ 250 mls/hr Q24H IV 04/19/19 10:00 04/21/19 09:39 Ondansetron HCl (ZOFRAN INJection) 4 mg Q6HP PRN IV NAUSEA OR VOMITING 04/09/19 10:00 04/17/19 00:23 Pantoprazole Sodium (Protonix) 40 mg DAILY IV 04/09/19 09:00 04/14/19 11:40 DC 04/14/19 09:06 Pantoprazole Sodium (Protonix) 40 mg DAILY PO 04/16/19 09:00 04/17/19 01:25 DC 04/16/19 10:56 Pantoprazole Sodium (Protonix) 40 mg Q12H IV 04/17/19 02:00 04/21/19 02:18 Patient Own Medication (Patient'S Own Med) Lumigan 1 drop OU QHS QHS OU 04/10/19 21:00 04/10/19 21:00 DC Potassium Chloride/Dextrose 1,000 ml @ 75 mls/hr [id number] IV 04/13/19 03:30 04/14/19 11:40 DC 04/14/19 11:28 Potassium Chloride/Dextrose/ Sod Cl 1,000 ml @ 100 mls/hr Q10H IV 04/12/19 11:15 04/12/19 20:52 DC 04/12/19 20:24 Potassium Chloride/Dextrose/ Sod Cl 1,000 ml @ 150 mls/hr Q6H40M IV 04/12/19 21:00 04/13/19 03:29 DC Potassium Chloride (Micro-K Extencaps) 20 meq DAILY PO 04/13/19 09:00 04/21/19 08:04 Prednisone (Deltasone) 30 mg DAILY PO 04/22/19 09:00 Prednisone (Deltasone) 40 mg BID PO 04/15/19 21:00 04/16/19 10:34 DC 04/16/19 08:27 Prednisone (Deltasone) 40 mg BID PO 04/16/19 21:00 04/18/19 07:09 DC 04/17/19 21:56 Prednisone (Deltasone) 40 mg DAILY PO 04/18/19 09:00 04/21/19 08:36 DC 04/21/19 08:04 Rivaroxaban (Xarelto) 15 mg DAILY@0800 PO 04/15/19 08:00 04/17/19 01:26 DC 04/16/19 08:27 Rivaroxaban (Xarelto) 15 mg DAILY@18 PO 04/21/19 18:00 Salmeterol Xinafoate/ Fluticasone (Advair Hfa 230/ 21) 1 puff BID INH 04/09/19 09:00 04/21/19 08:36 DC 04/21/19 07:24 Salmeterol Xinafoate/ Fluticasone (Advair Hfa 230) 2 puff RBID INH 04/21/19 20:00 Sodium Chloride 1,000 ml @ 50 mls/hr Q20H IV 04/17/19 01:22 04/17/19 18:45 DC 04/17/19 02:08 Sodium Chloride 1,000 ml @ 60 mls/hr [id number] IV 04/18/19 07:00 04/18/19 10:15 DC 04/18/19 09:00 Sodium Chloride (Saline Lock Flush) 10 ml ASDIRECTED PRN IV SEE LABEL COMMENTS 04/18/19 13:15 04/20/19 01:31 Sodium Chloride (Saline Lock Flush) 10 ml PICC IV 04/18/19 18:00 04/21/19 05:25 Spironolactone (Aldactone) 12.5 mg DAILY PO 04/14/19 09:00 04/16/19 12:05 DC 04/16/19 08:27 Sucralfate (Carafate Suspension) 1 gm Q6H PO 04/17/19 12:00 04/21/19 05:25 Torsemide (Demadex) 20 mg DAILY PO 04/14/19 11:45 UNV Torsemide (Demadex) 30 mg DAILY PO 04/14/19 11:45 04/16/19 12:05 DC 04/16/19 08:26 Allergies Coded Allergies: carvedilol (Verified Allergy, Severe, difficulty breathing, 04/09/19) pitavastatin (Verified Allergy, Severe, anaphylaxis, 04/09/19) dexamethasone (Verified Allergy, Intermediate, eyes burn, 04/09/19) dorzolamide (Verified Allergy, Intermediate, eyes burn, 04/09/19) neomycin (Verified Allergy, Intermediate, eyes burn, 04/09/19) polymyxin B (Verified Allergy, Intermediate, eyes burn, 04/09/19) timolol (Verified Allergy, Intermediate, eyes burn, 04/09/19) Penicillins (Verified Allergy, Mild, rash, 04/09/19) Quinolones (Verified Allergy, Mild, rash, 04/09/19) DG Inhibitors (Verified Adverse Reaction, Intermediate, kidney problems / cough, 04/09/19) [id number]-Ufo Reductase Inhibitor (Verified Adverse Reaction, Mild, myalgia, 04/09/19) colesevelam (Verified Adverse Reaction, Mild, myalgia, 04/09/19) ezetimibe (Verified Adverse Reaction, Mild, myalgia, 04/09/19) losartan (Verified Adverse Reaction, Mild, nausea / no appetite, 04/09/19) Objective Physical Examination Examination GENERAL APPEARANCE: Comfortable. ABDOMEN: Abdomen is nondistended, soft, and nontender on palpation. Vital Signs Vital Signs Date Time Temp Pulse Resp B/P (MAP) Pulse Ox O2 Delivery O2 Flow Rate FiO2 04/21/19 06:00 98.0 85 17 121/78 (92) 96 0.5 04/20/19 20:10 Nasal Cannula I&Os I&O- Last 24 Hours up to 6 AM 04/21/19 06:00 Intake Total 986 ml Output Total 450 ml Balance 536 ml Laboratory Data Labs 24H Laboratory Tests 2 04/20/19 16:45: Bedside Glucose (Misc Panel) 254H 04/20/19 16:54: Iron Level 17L, Total Iron Binding Capacity 253, Transferrin % Saturation 6.7L, Ferritin 33, Vitamin B12 Level 322, Folate 7.5 04/20/19 18:49: Bedside Glucose (Misc Panel) 228H 04/21/19 05:23: Nucleated Red Blood Cells % (auto) 0.2H, Anion Gap 8, Glomerular Filtration Rate 35.8, Blood Urea Nitrogen 34H, Creatinine 1.49H, Sodium Level 143, Potassium Level 4.4, Chloride Level 115H, Carbon Dioxide Level 20L, Calcium Level 8.0L CBC/BMP Laboratory Tests 04/21/19 05:23 Red Blood Count 2.31 L, Mean Corpuscular Volume 99.6 H, Mean Corpuscular Hemoglobin 32.5, Mean Corpuscular Hemoglobin Concent 32.6, Red Cell Distribution Width 13.8, Calcium Level 8.0 L Microbiology Microbiology 04/17/19 Stool Occult Blood (ROBLES) - Final, Complete Impression Small bowel obstruction resolved Negative upper GI endoscopy for bleeding or source of bleeding At this point I have asked Dr. Guzman to take over care of the patient is surgical issues have resolved themselves. Plan / VTE VTE Prophylaxis Ordered?: Yes BARAYUGA,CHAPARRITA B. MD Apr 21, 2019 11:36
[2019-04-21] MEDS ORDERED: FUROSEMIDE 100 MG/10 ML VIAL (J1940) IV ONE (12:00)
--- NOTE | 2019-04-21 12:01 | IPNPDOC ---
Subjective Date Seen The patient was seen on 04/21/19. Subjective Chief Complaint/HPI SOB is improving though still continues to have wheezing. appetite better, no vomiting or hematemesis or clarita, normal bowel movement. Objective Physical Examination General Exam: Positive: Alert, Cooperative, Mild Distress Eye Exam: Positive: PERRLA, Conjunctiva & lids normal, EOMI; Negative: Sclera icteric ENT Exam: Positive: Atraumatic, Mucous membr. moist/pink, Pharynx Normal Neck Exam: Positive: Supple; Negative: JVD, thyromegaly Chest Exam: Positive: Rhonchi, Wheezing, Diminished Heart Exam: Positive: Rate Normal, Regular Rhythm, Normal S1, Normal S2; Negative: Murmurs, Rubs Telemetry: Positive: No significant arrhythmia Abdomen Exam: Positive: Normal bowel sounds, Soft; Negative: Tenderness, Hepatospenomegaly Extremity Exam: Negative: Clubbing, Cyanosis, Edema Skin Exam: Positive: Nl turgor and temperature; Negative: Rash, Breakdown Assessment /Plan Assessment Right acute DVT with left leg chronic DVT since 2017. was on xarelto at home still developed new dvt. Now with recent hematemesis. So xarelto stopped for now Had an IVC filter placed on 04/18/19 Hypoxia improving , requiring less oxygen. due to COPD exacerbation. Chronic obstructive pulmonary disease exacerbation with hypoxia requiring 2 l oxygen not on oxygen at home. No pulmonary edema on chest x-ray. Has chronic interstitial disease. continue advair, ipratropium, xopenex, prednisone continue avelox Hematemesis acute upper gastrointestinal (GI) bleed in the setting of Xarelto use. Recent nasogastric (NG) tube placement. Possible stress ulceration . EGD negative for any bleeding source. Patient is currently on Protonix, Carafate. will give 1 unit of prbc. Acute blood loss anemia. from GIB. has iron def , and possible vit b12 def will give replacements. Transfuse PRN. Pneumonia in CT chest continue avelox. 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 Steroid-induced leukocytosis History of coronary artery disease s/p stents No issues at present. 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 Now creatinine improving. Renal ultrasound negative for obstruction. Most likely due to diuresis. however now again looks fluid overloaded so will give 1 dose of lasix today. Diabetes. sugars controlled. continue lispro and levemir GERD on PPI Glaucoma and Macular degeneration Plan/VTE VTE Prophylaxis Ordered?: Yes VS, I&O, 24H, Fishbone Vital Signs/I&O Vital Signs Date Time Temp Pulse Resp B/P (MAP) Pulse Ox O2 Delivery O2 Flow Rate FiO2 04/21/19 10:00 97.8 96 20 134/88 (103) 99 0.5 04/20/19 20:10 Nasal Cannula I&O- Last 24 Hours up to 6 AM 04/21/19 05:59 Intake Total 986 ml Output Total 850 ml Balance 136 ml Laboratory Data 24H LABS Laboratory Tests 2 04/20/19 16:45: Bedside Glucose (Misc Panel) 254H 04/20/19 16:54: Iron Level 17L, Total Iron Binding Capacity 253, Transferrin % Saturation 6.7L, Ferritin 33, Vitamin B12 Level 322, Folate 7.5 04/20/19 18:49: Bedside Glucose (Misc Panel) 228H 04/21/19 05:23: Nucleated Red Blood Cells % (auto) 0.2H, Anion Gap 8, Glomerular Filtration Rate 35.8, Blood Urea Nitrogen 34H, Creatinine 1.49H, Sodium Level 143, Potassium Level 4.4, Chloride Level 115H, Carbon Dioxide Level 20L, Calcium Level 8.0L CBC/BMP Laboratory Tests 04/21/19 05:23 Red Blood Count 2.31 L, Mean Corpuscular Volume 99.6 H, Mean Corpuscular Hemoglobin 32.5, Mean Corpuscular Hemoglobin Concent 32.6, Red Cell Distribution Width 13.8, Calcium Level 8.0 L Microbiology Microbiology 04/17/19 Stool Occult Blood (ROBLES) - Final, Complete ELVIN ALFARO MD Apr 21, 2019 12:01
[2019-04-21] MEDS: RIVAROXABAN 15 MG TAB (XARELTO) PO SCH (17:01)
[2019-04-21] MEDS: LATANOPROST 0.005% OPHTH SOLN 2.5 ML OU SCH (20:36)
[2019-04-21] MEDS: PANTOPRAZOLE 40MG TAB (PROTONIX) PO SCH (20:37)
[2019-04-22] MEDS: LEVALBUTEROL 1.25 MG/0.5 ML CONCENTRATE NEB INH SCH ×6 (00:37→20:58)
[2019-04-22 02:00] VITALS: BP 163/40
[2019-04-22 06:00] VITALS: BP 166/66
[2019-04-22] MEDS: SUCRALFATE SUSP 1GM/10ML UD PO SCH ×4 (06:39→18:00)
[2019-04-22] MEDS: SODIUM CHLORIDE 0.9% INJ 10 ML SYR IV SCH ×2 (06:41→12:14)
[2019-04-22 07:04] LABS: HEMATOCRIT 28.4 % (36.0-47.0); HEMOGLOBIN 9.2 g/dl (12.0-15.5); MEAN CORPUSCULAR HEMOGLOBIN 31.4 pg (27.0-33.0); MEAN CORPUSCULAR HGB CONC 32.4 g/dl (32.0-36.5); MEAN CORPUSCULAR VOLUME 96.9 fl (80.0-96.0); PLATELET COUNT, AUTOMATED 253 10^3/uL (150-450); RED BLOOD COUNT 2.93 10^6/uL (4.00-5.40); WHITE BLOOD COUNT 12.5 10^3/uL (4.0-10.0)
[2019-04-22] MEDS: ADVAIR HFA 230/21MCG INHALER INH SCH ×2 (07:28→20:58)
[2019-04-22] MEDS: IPRATROPIUM HFA INHALER 12.9 GRAMS (ATROVENT HFA) INH SCH ×2 (07:28→20:58)
[2019-04-22 07:31] LABS: CALCIUM LEVEL 8.2 MG/DL (8.8-10.2); CREATININE FOR GFR 1.29 MG/DL (0.55-1.30); GLOMERULAR FILTRATION RATE 42.2 (>32); POTASSIUM SERUM 3.8 MEQ/L (3.5-5.1)
[2019-04-22] MEDS: POTASSIUM CHLORIDE 10 MEQ SR TABLET PO SCH (09:22)
[2019-04-22] MEDS: CYANOCOBALAMIN 500 MCG TAB PO SCH (09:22)
[2019-04-22] MEDS: CALCITRIOL 0.25 MCG CAP (S0169) PO SCH (09:22)
[2019-04-22] MEDS: ALLOPURINOL 100 MG TAB PO SCH (09:22)
[2019-04-22] MEDS: FERROUS GLUCONATE 324 MG TAB PO SCH ×2 (09:22→22:22)
[2019-04-22] MEDS: HumaLOG INSULIN (NovoLOG) PER UNIT SC SCH ×4 (09:23→22:24)
[2019-04-22] MEDS: BRINZOLAMIDE 1 % OPHTH SUSP (AZOPT) 10ML OU SCH ×2 (09:24→22:22)
[2019-04-22] MEDS: LEVEMIR (INSULIN DETEMIR) 1 UNITS/0.01ML SC SCH ×2 (09:24→22:23)
[2019-04-22] MEDS: PANTOPRAZOLE 40MG TAB (PROTONIX) PO SCH ×2 (09:28→22:22)
[2019-04-22] MEDS: predniSONE 10 MG TAB PO SCH (09:28)
[2019-04-22 10:00] VITALS: BP 121/60
[2019-04-22] MEDS: MOXIFLOXACIN HCL 400 MG in APPROPRIATE DILUENT 1 EA IV SCH (10:54)
[2019-04-22 14:00] VITALS: BP 163/66
--- NOTE | 2019-04-22 15:22 | IPNPDOC ---
Subjective Date Seen The patient was seen on 04/22/19. Subjective Chief Complaint/HPI feeling much better, breathing almost back to baseline. still on minimal oxygen which i am hoping will come off today. appetite has improved, no fever or chills, no chest pain. no hematemesis or clarita. will check labs today. Objective Physical Examination General Exam: Positive: Alert, Cooperative, Mild Distress Eye Exam: Positive: PERRLA, Conjunctiva & lids normal, EOMI; Negative: Sclera icteric ENT Exam: Positive: Atraumatic, Mucous membr. moist/pink, Pharynx Normal Neck Exam: Positive: Supple; Negative: JVD, thyromegaly Chest Exam: Positive: Rhonchi, Wheezing, Diminished Heart Exam: Positive: Rate Normal, Regular Rhythm, Normal S1, Normal S2; Negative: Murmurs, Rubs Telemetry: Positive: No significant arrhythmia Abdomen Exam: Positive: Normal bowel sounds, Soft; Negative: Tenderness, Hepatospenomegaly Extremity Exam: Negative: Clubbing, Cyanosis, Edema Skin Exam: Positive: Nl turgor and temperature; Negative: Rash, Breakdown Assessment /Plan Assessment Right acute DVT with left leg chronic DVT since 2017. was on xarelto at home still developed new dvt. Now with recent hematemesis. So xarelto stopped . EGD done did not show any source of bleeding so xarelto has agin been restarted however will continue to hold ASA> Had an IVC filter placed on 04/18/19 Hypoxia improving , requiring less oxygen. due to COPD exacerbation. Chronic obstructive pulmonary disease exacerbation with hypoxia requiring 2 l oxygen not on oxygen at home. No pulmonary edema on chest x-ray. Has chronic interstitial disease. continue advair, ipratropium, xopenex, prednisone continue avelox Hematemesis acute upper gastrointestinal (GI) bleed in the setting of Xarelto use. Recent nasogastric (NG) tube placement. Possible stress ulceration . EGD negative for any bleeding source. Patient is currently on Protonix, Carafate. given 1 unit of prbc. Acute blood loss anemia. from GIB. has iron def , and possible vit b12 def will give replacements. Transfuse PRN. Pneumonia in CT chest continue avelox. 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 Steroid-induced leukocytosis improving withweaning of steroids History of coronary artery disease s/p stents No issues at present. 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 Now creatinine improving. Renal ultrasound negative for obstruction. Most likely due to diuresis. Lasix prn Diabetes. sugars controlled. continue lispro and levemir GERD on PPI Glaucoma and Macular degeneration Plan/VTE VTE Prophylaxis Ordered?: Yes VS, I&O, 24H, Fishbone Vital Signs/I&O Vital Signs Date Time Temp Pulse Resp B/P (MAP) Pulse Ox O2 Delivery O2 Flow Rate FiO2 04/22/19 06:00 95.6 77 20 166/66 (99) 99 0.5 04/20/19 20:10 Nasal Cannula I&O- Last 24 Hours up to 6 AM 04/22/19 06:00 Intake Total 2272 ml Output Total 1600 ml Balance 672 ml Laboratory Data 24H LABS Laboratory Tests 2 04/21/19 12:07: Bedside Glucose (Misc Panel) 60L 04/21/19 12:44: Bedside Glucose (Misc Panel) 78L 04/21/19 16:37: Bedside Glucose (Misc Panel) 207H 04/21/19 20:24: Bedside Glucose (Misc Panel) 159H 04/22/19 06:48: CBC/BMP Microbiology Microbiology 04/17/19 Stool Occult Blood (ROBLES) - Final, Complete ELVIN ALFARO MD Apr 22, 2019 07:04
[2019-04-22] MEDS ORDERED: FUROSEMIDE 40 MG/4 ML VIAL (J1940) IV ONE (16:00)
[2019-04-22] MEDS: RIVAROXABAN 15 MG TAB (XARELTO) PO SCH (18:00)
[2019-04-22] MEDS: SODIUM CHLORIDE 0.9% INJ 10 ML SYR IV PRN (18:01)
[2019-04-22 22:00] VITALS: BP 161/64
[2019-04-22 22:20] VITALS: BP 104/65
[2019-04-22] MEDS: LATANOPROST 0.005% OPHTH SOLN 2.5 ML OU SCH (22:22)
[2019-04-23] MEDS: LEVALBUTEROL 1.25 MG/0.5 ML CONCENTRATE NEB INH SCH ×2 (00:11→03:41)
[2019-04-23] MEDS: SUCRALFATE SUSP 1GM/10ML UD PO SCH ×2 (00:24→05:11)
[2019-04-23 02:00] VITALS: BP 163/66
[2019-04-23] MEDS: SODIUM CHLORIDE 0.9% INJ 10 ML SYR IV SCH (05:13)
[2019-04-23 05:43] LABS: HEMATOCRIT 29.5 % (36.0-47.0); HEMOGLOBIN 9.6 g/dl (12.0-15.5); MEAN CORPUSCULAR HEMOGLOBIN 31.5 pg (27.0-33.0); MEAN CORPUSCULAR HGB CONC 32.5 g/dl (32.0-36.5); MEAN CORPUSCULAR VOLUME 96.7 fl (80.0-96.0); PLATELET COUNT, AUTOMATED 302 10^3/uL (150-450); RED BLOOD COUNT 3.05 10^6/uL (4.00-5.40); WHITE BLOOD COUNT 11.9 10^3/uL (4.0-10.0)
[2019-04-23 06:00] VITALS: BP 123/64
[2019-04-23 06:11] LABS: CALCIUM LEVEL 8.4 MG/DL (8.8-10.2); CREATININE FOR GFR 1.3 MG/DL (0.55-1.30); GLOMERULAR FILTRATION RATE 41.9 (>32); POTASSIUM SERUM 3.7 MEQ/L (3.5-5.1)
[2019-04-23] MEDS ORDERED: PANT40TA3 PO (06:29)
[2019-04-23] MEDS ORDERED: PRED10TA2 PO (06:29)
[2019-04-23] MEDS ORDERED: VITA500T40 PO (06:29)
[2019-04-23] MEDS ORDERED: FERR32TA PO (06:29)
[2019-04-23] MEDS ORDERED: SUCR1TA PO (06:29)
[2019-04-23] MEDS: HumaLOG INSULIN (NovoLOG) PER UNIT SC SCH (07:30)
[2019-04-23] MEDS: ADVAIR HFA 230/21MCG INHALER INH SCH (07:31)
[2019-04-23] MEDS: IPRATROPIUM HFA INHALER 12.9 GRAMS (ATROVENT HFA) INH SCH (07:31)
[2019-04-23] MEDS: POTASSIUM CHLORIDE 10 MEQ SR TABLET PO SCH (08:09)
[2019-04-23] MEDS: PANTOPRAZOLE 40MG TAB (PROTONIX) PO SCH (08:09)
[2019-04-23] MEDS: FERROUS GLUCONATE 324 MG TAB PO SCH (08:09)
[2019-04-23] MEDS: LEVEMIR (INSULIN DETEMIR) 1 UNITS/0.01ML SC SCH (08:09)
[2019-04-23] MEDS: CYANOCOBALAMIN 500 MCG TAB PO SCH (08:09)
[2019-04-23] MEDS: CALCITRIOL 0.25 MCG CAP (S0169) PO SCH (08:09)
[2019-04-23] MEDS: predniSONE 10 MG TAB PO SCH (08:09)
[2019-04-23] MEDS: BRINZOLAMIDE 1 % OPHTH SUSP (AZOPT) 10ML OU SCH (08:10)
[2019-04-23] MEDS: ALLOPURINOL 100 MG TAB PO SCH (08:10)
[2019-04-23 10:00] VITALS: BP 174/77
[2019-04-23] MEDS ORDERED: MOXI1TAB PO (14:35)
--- NOTE | 2019-04-23 14:50 | DS.PDOC ---
Discharge Summary General Date of Admission Apr 09, 2019 at 09:49 Date of Discharge 04/23/19 Discharge Summary PROCEDURES PERFORMED DURING STAY: IVC filter placement on 04/18/19 EGD 04/20/19 DISCHARGE DIAGNOSES: SBO due to adhesions resolved Upper GI bleed EGD negative. Acute right leg DVT and chronic left leg DVT IVC filter placemnt as Xarelto had to be stopped for GIB. 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 GERD COMPLICATIONS/CHIEF COMPLAINT: Small Bowel Obstruction Due To Adhesion. HISTORY OF PRESENT ILLNESS: see history and physical HOSPITAL COURSE: This is an 83-year-old female with past medical history of chronic obstructive pulmonary disease (COPD), hypertension, coronary artery disease (CAD) with history of stent to her right coronary artery (RCA) in 2004, diabetes, history of deep vein thrombosis (DVT) in the left lower extremity, on chronic lifetime Xarelto, glaucoma, history of pacemaker secondary to significant bradycardia and sick sinus syndrome in 2016, who present ed to the ED with the chief complaints of one day history of significant nausea, vomiting and abdominal pain. She does have a history of prior obstruction in 1999 which she says required a large part of her intestines being removed. She was found to have SBO and was admitted to the surgical service. The SBO resolved with bowel rest , IVF , NG tube and did not require any surgical intervention. Her hospitalization was complicated by hematemesis for which she had a EGD which was negative, COPD exacerbation with hypoxia requiring oxygen, Guy on CKD, Acute right leg DVT when the xarelto was stopped due to GIB so had an IVC filter placed. Patient was transferred to medical service after the SBO had resolved. Right acute DVT with left leg chronic DVT since 2016. was on xarelto at home which was stopped due to recent hematemesis and Had an IVC filter placed on 04/18/19 Hematemesis stopped spontaneously EGD done did not show any source of bleeding so xarelto has again been restarted Hypoxia resolved. due to COPD exacerbation. Chronic obstructive pulmonary disease exacerbation with hypoxia requiring 2 l oxygen not on oxygen at home. No pulmonary edema on chest x-ray. Has chronic interstitial disease. continue advair, ipratropium, xopenex, prednisone taper continue avelox for 3 days Hematemesis acute upper gastrointestinal (GI) bleed in the setting of Xarelto use. Recent nasogastric (NG) tube placement. Possible stress ulceration . EGD negative for any bleeding source. Patient is currently on Protonix, Carafate. given 1 unit of prbc. Acute blood loss anemia. from GIB. has iron def , and possible vit b12 def will give replacements. Transfuse PRN. Pneumonia in CT chest finished 5 days of moxifloxacin. 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 Steroid-induced leukocytosis improving with weaning of steroids History of coronary artery disease s/p stents No issues at present. 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 Now improved. Renal ultrasound negative for obstruction. Most likely due to overdiuresis at one point. Diabetes. sugars controlled. continue lispro and levemir GERD on PPI Glaucoma and Macular degeneration DISCHARGE MEDICATIONS: Please see below. ALLERGIES: Please see below. PHYSICAL EXAMINATION ON DISCHARGE: VITAL SIGNS: Please see below. General Exam: Positive: Alert, Cooperative, Mild Distress Eye Exam: Positive: PERRLA, Conjunctiva & lids normal, EOMI; Negative: Sclera icteric ENT Exam: Positive: Atraumatic, Mucous membrane. moist/pink, Pharynx Normal Neck Exam: Positive: Supple; Negative: JVD, thyromegaly Chest Exam: Positive: Rhonchi, Wheezing, Diminished Heart Exam: Positive: Rate Normal, Regular Rhythm, Normal S1, Normal S2; Negative: Murmurs, Rubs Telemetry: Positive: No significant arrhythmia Abdomen Exam: Positive: Normal bowel sounds, Soft; Negative: Tenderness, Hepatosplenomegaly Extremity Exam: Negative: Clubbing, Cyanosis,, edema present. Skin Exam: Positive: Nl turgor and temperature; Negative: Rash, Breakdown LABORATORY DATA: Please see below. ACTIVITY: [As tolerated]. DIET: as tolerated, fluid restriction 2 liters. DISPOSITION: Home Health Service. DISCHARGE INSTRUCTIONS: follow up with pMD in 1 week DISCHARGE CONDITION: [Stable]. TIME SPENT ON DISCHARGE: 40 minutes. Vital Signs/I&Os Vital Signs Date Time Temp Pulse Resp B/P (MAP) Pulse Ox O2 Delivery O2 Flow Rate FiO2 04/23/19 10:00 97.6 82 18 174/77 (109) 95 04/23/19 02:00 04/20/19 20:10 Nasal Cannula I&O- Last 24 Hours up to 6 AM 04/23/19 06:00 Intake Total 1846 ml Output Total 200 ml Balance 1646 ml Laboratory Data Labs 24H Laboratory Tests 2 04/22/19 17:08: Bedside Glucose (Misc Panel) 215H 04/22/19 21:09: Bedside Glucose (Misc Panel) 171H 04/23/19 05:20: Nucleated Red Blood Cells % (auto) 0.3H, Anion Gap 7L, Glomerular Filtration Rate 41.9, Blood Urea Nitrogen 29H, Creatinine 1.30, Sodium Level 144, Potassium Level 3.7, Chloride Level 114H, Carbon Dioxide Level 23, Calcium Level 8.4L 04/23/19 11:49: Bedside Glucose (Misc Panel) 65L CBC/BMP Laboratory Tests 04/23/19 05:20 Red Blood Count 3.05 L, Mean Corpuscular Volume 96.7 H, Mean Corpuscular Hemoglobin 31.5, Mean Corpuscular Hemoglobin Concent 32.5, Red Cell Distribution Width 15.7 H, Calcium Level 8.4 L FSBS Laboratory Tests Test 04/22/19 17:08 04/22/19 21:09 04/23/19 11:49 Range/Units Bedside Glucose (Misc Panel) 215 171 65 83-110 MG/DL Microbiology Microbiology 04/17/19 Stool Occult Blood (ROBLES) - Final, Complete Discharge Medications Scheduled Acetaminophen (Tylenol Arthritis) 650 Mg Tablet.er, 650 MG PO BID, (Reported) Allopurinol (Allopurinol) 100 Mg Tab, 100 MG PO DAILY, (Reported) Aspirin (Aspirin EC) 81 Mg Tab, 81 MG PO DAILY, (Reported) Bimatoprost (Lumigan) 50 Drop/2.5 Ml Eleanor, 1 DROP OU QHS, (Reported) Brinzolamide (Azopt) 1 % Taya, 1 DROP OU BID, (Reported) Calcitriol (Rocaltrol) 0.25 Mcg Cap, 0.25 MCG PO DAILY, (Reported) Cholecalciferol (Vitamin D3) (Vitamin D3) 1,000 Unit Tab, 2,000 UNIT PO DAILY, (Reported) Cyanocobalamin (Vitamin B-12) (Vitamin B-12) 500 Mcg Tablet, 500 MCG PO DAILY Ferrous Gluconate (Ferrous Gluconate) 324 Mg Tablet, 324 MG PO BID Insulin Glargine (Lantus) 1 Units/0.01 Ml Susp, 10 UNITS SC QHS, (Reported) Eleele-3 Fatty Acids/Fish Oil (Eleele 3 1,000 mg Softgel) 1 Cap Cap, 1 CAP PO BID, (Reported) Pantoprazole Sodium (Pantoprazole Sodium) 40 Mg Tablet.dr, 40 MG PO BID Potassium Chloride (Potassium Chloride) 20 Meq Tablet.er, 20 MEQ PO DAILY, (Reported) Prednisone (Prednisone) 10 Mg Tablet, 10 MG PO TAPER 2 tabs daily x 3 days, then 1 tab daily x 3 days and stop Rivaroxaban (Xarelto) 15 Mg Tablet, 15 MG PO DAILY, (Reported) Salmeterol/Fluticasone (Advair 500-50 Diskus) 1 Each Blst.w.dev, 1 PUFF INH BID, (Reported) Spironolactone (Spironolactone) 25 Mg Tablet, 12.5 MG PO DAILY, (Reported) Sucralfate (Sucralfate) 1 Gm Tablet, 1 GM PO ACHS Torsemide (Torsemide) 10 Mg Tablet, 10 MG PO DAILY, (Reported) 30MG TOTAL DAILY Torsemide (Torsemide) 20 Mg Tablet, 20 MG PO DAILY, (Reported) 30MG TOTAL DAILY Vit A/Vit C/Vit E/Zinc/Copper (Preservision Areds Tablet) 1 Each Tablet, 1 TAB PO BID, (Reported) Scheduled PRN Albuterol Sulfate (Proair Hfa) 108 Mcg/Act Aer, 2 PUFFS INH Q4H PRN for SHORTNESS OF BREATH, (Reported) Nitroglycerin (Nitrostat) 0.4 Mg Subl, 0.4 MG SL NITRO PRN for CHEST PAIN, (Reported) Allergies Coded Allergies: carvedilol (Verified Allergy, Severe, difficulty breathing, 04/09/19) pitavastatin (Verified Allergy, Severe, anaphylaxis, 04/09/19) dexamethasone (Verified Allergy, Intermediate, eyes burn, 04/09/19) dorzolamide (Verified Allergy, Intermediate, eyes burn, 04/09/19) neomycin (Verified Allergy, Intermediate, eyes burn, 04/09/19) polymyxin B (Verified Allergy, Intermediate, eyes burn, 04/09/19) timolol (Verified Allergy, Intermediate, eyes burn, 04/09/19) Penicillins (Verified Allergy, Mild, rash, 04/09/19) Quinolones (Verified Allergy, Mild, rash, 04/09/19) DG Inhibitors (Verified Adverse Reaction, Intermediate, kidney problems / cough, 04/09/19) Mhbahay-Mnv-Awt Reductase Inhibitor (Verified Adverse Reaction, Mild, myalgia, 04/09/19) colesevelam (Verified Adverse Reaction, Mild, myalgia, 04/09/19) ezetimibe (Verified Adverse Reaction, Mild, myalgia, 04/09/19) losartan (Verified Adverse Reaction, Mild, nausea / no appetite, 04/09/19) ELVIN ALFARO MD Apr 23, 2019 14:50
[2019-04-23] MEDS ORDERED: LEVO250T12 PO (15:02)
== END 2019-04-23 12:36 | disposition home health service (06) | DRG 356 ==
LOC: M ED 02:22 → M ED INP 09:49 → M MSPAV 11:31
PROVIDERS: ADMIT Surgery; ATTEND Internal Medicine Nephrology
PROC: 02HV33Z Insertion of Infusion Device into Superior Vena Cava, Percutaneous Approach (ICD-10-PCS; 2019-04-18)
PROC: 02L Heart and Great Vessels, Occlusion (ICD-10-PCS; principal; 2019-04-18 13:00)
PROC: 0DJ08ZZ Inspection of Upper Intestinal Tract, Via Natural or Artificial Opening Endoscopic (ICD-10-PCS; 2019-04-20)
PROC: 30233N1 Transfusion of Nonautologous Red Blood Cells into Peripheral Vein, Percutaneous Approach (ICD-10-PCS; 2019-04-21)
DX: K56.51 Intestinal adhesions [bands], with partial obstruction (principal); J18.9 Pneumonia, unspecified organism; I50.32 Chronic diastolic (congestive) heart failure; E87.0 Hyperosmolality and hypernatremia; I13.0 Hypertensive heart and chronic kidney disease with heart failure and stage 1 through stage 4 chronic kidney disease, or unspecified chronic kidney disease; J44.1 Chronic obstructive pulmonary disease with (acute) exacerbation; N17.9 Acute kidney failure, unspecified; D62 Acute posthemorrhagic anemia; K92.0 Hematemesis; I82.411 Acute embolism and thrombosis of right femoral vein; I82.512 Chronic embolism and thrombosis of left femoral vein; D68.32 Hemorrhagic disorder due to extrinsic circulating anticoagulants; I25.10 Atherosclerotic heart disease of native coronary artery without angina pectoris; E11.42 Type 2 diabetes mellitus with diabetic polyneuropathy; M10.9 Gout, unspecified; N18.3 Chronic kidney disease, stage 3 (moderate); K44.9 Diaphragmatic hernia without obstruction or gangrene; H40.9 Unspecified glaucoma; E11.22 Type 2 diabetes mellitus with diabetic chronic kidney disease; H35.30 Unspecified macular degeneration; K21.9 Gastro-esophageal reflux disease without esophagitis; R09.02 Hypoxemia; Z95.0 Presence of cardiac pacemaker; Z95.5 Presence of coronary angioplasty implant and graft; Z79.01 Long term (current) use of anticoagulants; Z88.0 Allergy status to penicillin; Z88.1 Allergy status to other antibiotic agents; Z88.8 Allergy status to other drugs, medicaments and biological substances; Z79.82 Long term (current) use of aspirin; Z79.899 Other long term (current) drug therapy; Z79.4 Long term (current) use of insulin; Z90.49 Acquired absence of other specified parts of digestive tract; Z86.010 Personal history of colon polyps; Z98.41 Cataract extraction status, right eye; Z98.42 Cataract extraction status, left eye; Z87.891 Personal history of nicotine dependence

== ENCOUNTER 2019-05-12 07:42 | Inpatient (IN) | payer MEDICARE ==
[~2019-05-12] VITALS: Ht 167.6 cm; Wt 81.8 kg
[~2019-05-12 07:42] MED LIST changes: +BISO5TAB9 PO; +LEVO250T12 PO; +MOXI1TAB PO; +OMEG300C PO; -OMEGCAP8 PO; +OMEP-218 PO; +PANT40TA3 PO; +POTA1TAB14 PO; +SUCR1TA PO; +TORS10TA3 PO; +TORS20TA2 PO; +TYLE650T35 PO; +VITA500T40 PO
[2019-05-12] MEDS ORDERED: NS 500 ML IV ONE ×3 (08:00→09:45)
[2019-05-12 08:36] LABS: BASO % 0.3 % (0.0-1.0); EOS # 0.2 10^3/uL (0.0-0.5); EOS % 2.9 % (0.0-3.0); HEMATOCRIT 35.9 % (36.0-47.0); HEMOGLOBIN 11.8 g/dl (12.0-15.5); LYMPH # 1.9 10^3/uL (1.5-5.0); LYMPH % 32.9 % (24.0-44.0); MEAN CORPUSCULAR HEMOGLOBIN 32.1 pg (27.0-33.0); MEAN CORPUSCULAR HGB CONC 32.9 g/dl (32.0-36.5); MEAN CORPUSCULAR VOLUME 97.6 fl (80.0-96.0); MONO # 0.6 10^3/uL (0.0-0.8); MONO % 10.4 % (0.0-5.0); NEUTROPHILS # 3.1 10^3/uL (1.5-8.5); NEUTROPHILS % 52.8 % (36.0-66.0); PLATELET COUNT, AUTOMATED 299 10^3/uL (150-450); RED BLOOD COUNT 3.68 10^6/uL (4.00-5.40); WHITE BLOOD COUNT 5.9 10^3/uL (4.0-10.0)
[2019-05-12 09:03] LABS: ALBUMIN 2.7 GM/DL (3.2-5.2); BILIRUBIN,DIRECT 0.1 MG/DL (0.0-0.2); BILIRUBIN,TOTAL 0.3 MG/DL (0.2-1.0)
[2019-05-12 09:04] LABS: CK-MB VALUE MASS 1.1 NG/ML (<3.6); CPK CREATINE PHOSPHOKINASE 16 U/L (26-192); MB/CK RELATIVE INDEX 6.88 (< OR =4); NT-PRO BNP 960 PG/ML (<450); TROPONIN I < 0.02 NG/ML (< 0.10)
--- NOTE | 2019-05-12 09:12 | REP ---
CHEST X-RAY: Two views. HISTORY: Malaise. COMPARISON CHEST X-RAY: April 17, 2019. FINDINGS: A bipolar pacemaker is seen in the right heart via the left side. EKG electrodes are noted. There are clips in right upper quadrant of the abdomen suggesting previous cholecystectomy. There is a linear opacity in the left base consistent with plate-like atelectasis. Pleural angles are sharp. No infiltrate is seen. Heart size is normal. The thoracic aorta is calcific. IMPRESSION: Mild left base plate-like atelectasis. Pacemaker. Otherwise no acute disease. Electronically Signed by Barry Rodrigez MD 05/12/2019 10:56 A
--- NOTE | 2019-05-12 10:25 | REP ---
Clinical: Abdominal pain with nausea. Technique: Axial noncontrast images from the lung bases to the pubic symphysis with coronal and sagittal re-formations. Comparison: 04/09/2019. Findings: Lung bases demonstrate chronic COPD and scarring. Moderate hiatal hernia at the gastroesophageal junction noted. Liver, spleen, pancreas, bilateral adrenal glands and kidneys are normal / stable. Evidence of prior cholecystectomy. The there is evidence for prior colectomy with ileal colonic anastomosis at the level of the sigmoid within the pelvis. There is no evidence for bowel obstruction or acute inflammatory enteric process. Pelvis demonstrates normal bladder and evidence for prior hysterectomy. No ascites. No free air. No adenopathy. Atherosclerotic changes of the aorta and vasculature noted without aneurysm. IVC filter identified in satisfactory position. Surrounding musculoskeletal structures are intact. Impression: 1. No obvious acute abdominopelvic pathology appreciated. 2. Chronic and postsurgical changes as described above including prior colectomy with normal appearing ileocolonic anastomosis at the sigmoid level. Prior cholecystectomy and hysterectomy. 3. No ascites, focal inflammatory stranding, or adenopathy. No free air. Electronically Signed by Lars Tiwari MD 05/12/2019 10:17 A
[2019-05-12] MEDS ORDERED: PANT-23 PO (13:28)
[2019-05-12] MEDS ORDERED: FERR32TA PO (13:28)
[2019-05-12] MEDS ORDERED: VITA500T41 PO (13:28)
[2019-05-12] MEDS ORDERED: cefTRIAXone SOD 1 GM in D5W MINI-BAG PLUS 50 ML IV ONE (13:30)
[2019-05-12] MEDS ORDERED: GLUCAGON FOR INJ 1 MG VIAL (J1610) SC PRN (14:30)
[2019-05-12] MEDS ORDERED: GLUCOSE 4 GM CHEW TABLET PO PRN (14:30)
[2019-05-12] MEDS ORDERED: DEXTROSE 50% 50 ML SYRINGE IV PRN (14:30)
[2019-05-12] MEDS ORDERED: NITROGLYCERIN 0.4 MG SUBL TABLET SL PRN (14:45)
--- NOTE | 2019-05-12 15:02 | HPEPDOC ---
[facility] Medical History & Physical Date of Admission May 12, 2019 Date of Service: May 12, 2019 History and Physical CHIEF COMPLAINT: Generalized weakness and nausea and dry heaves HISTORY OF PRESENT ILLNESS: This is a 84-year-old female who was recently admitted 04/09/2019 through 04/23/2019. At that time she had a two-week, complicated hospital course including presentation for a small bowel obstruction secondary to adhesions which resolved with supportive measures, GI bleed which resolved without any clear etiology found development of an acute DVT and placement of an IVC filter. The patient went home after hospitalization and reportedly had been doing well however she has had progressively worsening weakness for the last 2 weeks and developed recently dry heaves. The patient and her daughter do not feel she is able to care for herself at home and are interested in assisted living presented to the emergency room and was found to have an abnormal urinalysis. Otherwise patient denies weight loss, hair loss, headache, visual changes, chest pain, shortness of breath, cough, muscle aches, worsening arthritis, change in mood PAST MEDICAL HISTORY: 1. COPD. 2. Coronary artery disease with a RCA stent. 3. DVT on anticoagulation with IVC filter as well 4. Hypertension 5. Diabetes mellitus 6 glaucoma 7 macular degeneration 8 sinus syndrome status post pacer 9 gout 10 anemia. HOME MEDICATIONS: Please see below. ALLERGIES: Please see below PAST SURGICAL HISTORY: 1. Colectomy. 2. Hysterectomy. 3. Cholecystectomy 4 appendectomy 5. Breast biopsies 6 cataract extraction bilaterally 7 cardiac cath 8 IVC filter placement. SOCIAL HISTORY: Lives with: Alone, Employment: Retired, Tobacco use: Former smoker quit in 2001. ETOH: 1 glass of tara daily, Illicit drug use: Denies, CODE STATUS: Full code FAMILY HISTORY:Reviewed and noncontributory REVIEW OF SYSTEMS: 10 systems reviewed and negative other than HPI PHYSICAL EXAMINATION: VITAL SIGNS: Temperature 96.2, pulse 93, respiratory rate 20, blood pressure 133/65, pulse oximetry 96 % on room air. GENERAL: Pleasant frail elderly woman lying in a stretcher at a 30 angle accompanied by her daughter awake alert oriented speaking in complete sentences no acute distress HEENT: Dry mucous membranes no elevation in CVP CARDIOVASCULAR: S1 S2 regular no additional heart sounds appreciated. RESPIRATORY: Clear to auscultation bilaterally. She does have some diffuse end expiratory wheeze ABDOMINAL: Bowel sounds present abdomen soft and fairly diffuse tenderness to deep palpation, no suprapubic tenderness no CVA tenderness EXTREMITIES: No clubbing cyanosis, trace edema NEUROLOGICAL: Spontaneously moves all 4 extremities cranial 2 through 12 grossly intact no gross focal deficits appreciated PSYCHOLOGICAL: Appropriate LABORATORY DATA: See below. MICROBIOLOGY: Please see below. IMAGING: CT abdomen pelvis: 1. No obvious acute abdominopelvic pathology appreciated. 2. Chronic and postsurgical changes as described above including prior colectomy with normal appearing ileocolonic anastomosis at the sigmoid level. Prior cholecystectomy and hysterectomy. 3. No ascites, focal inflammatory stranding, or adenopathy. No free air. Chest x-ray:Mild left base plate-like atelectasis. Pacemaker. Otherwise no acute disease. ASSESSMENT & PLAN: This is a 84-year-old female with weakness nausea and vomiting. Likely secondary to urinary tract infection. PROBLEMS: 1. Weakness nausea and vomiting: Likely secondary to urinary tract infection. UA is abnormal urine culture blood cultures are pending she is hemodynamically stable she is not tachycardic and although she is unable to recall specific symptoms other than the Afrin mentioned it is certainly suspicious for UTI. She was started on ceftriaxone by a provider based on Dr. Perez's recommendation. We'll continue this for now follow-up cultures. Abdomen reveals no acute pathology and although diffusely tender she does have chronic pain associated with this no evidence of any ongoing obstruction she is having bowel movements and passing gas. We'll provide her with antiemetics. Patient does have some fairly chronic debility and is seeking a potential placement as such PTOT PFS consults placed for possible JIMBO placement 2. Acute kidney injury: As reported to me by the emergency room staff and a [id number] lab testing. My experience this lab test is fairly unreliable I will check a stat redraw to ensure it is actually elevated, for the time being I will hold off on her diuretics and simply monitor her closely she is tolerating by mouth otherwise. 3. Diabetes mellitus: We'll provide with insulin sliding scale consistent carb diet 4.Sic sinus syndrome: She is status post pacer she does not require any rate controlling agents and appears she is anticoagulated 5. DVT: She is on Xarelto she is status post an IVC filter outpatient follow-up with interventional radiology for removal when they feel appropriate 6. Coronary artery disease she is not a beta april she is intolerant to statins she is on an aspirin. We'll defer to her outpatient providers 7. Glaucoma and macular degeneration: Continue her outpatient eyedrops 8. Hypertension: We are holding her diuretics and this time monitor her volume status and renal function closely resume as needed 9. Iron deficiency anemia: Continue supplementation 10. Recent GI bleed: Continue with Protonix by mouth twice a day 11. Vitamin deficiencies: Continue with vitamin D and B12 supplementation DVT PROPHYLAXIS: Anticoagulation DISPOSITION: Admitted to [facility] floor inpatient status Vital Signs Vital Signs Date Time Temp Pulse Resp B/P (MAP) Pulse Ox O2 Delivery O2 Flow Rate FiO2 05/12/19 14:32 81 97 05/12/19 14:30 128/59 (82) 05/12/19 07:50 96.2 20 Room Air Laboratory Data Labs 24H Laboratory Tests 2 05/12/19 08:20: Immature Granulocyte % (Auto) 0.7, White Blood Count 5.9, Red Blood Count 3.68L, Hemoglobin 11.8L, Hematocrit 35.9L, Mean Corpuscular Volume 97.6H, Mean Corpuscular Hemoglobin 32.1, Mean Corpuscular Hemoglobin Concent 32.9, Red Cell Distribution Width 14.8H, Platelet Count 299, Neutrophils (%) (Auto) 52.8, Lymphocytes (%) (Auto) 32.9, Monocytes (%) (Auto) 10.4H, Eosinophils (%) (Auto) 2.9, Basophils (%) (Auto) 0.3, Neutrophils # (Auto) 3.1, Lymphocytes # (Auto) 1.9, Monocytes # (Auto) 0.6, Eosinophils # (Auto) 0.2, Basophils # (Auto) 0.0, N ucleated Red Blood Cells % (auto) 0.0, Aspartate Amino Transf (AST/SGOT) 6L, Alanine Aminotransferase (ALT/SGPT) 13, Alkaline Phosphatase 101, Total Bilirubin 0.3, Direct Bilirubin 0.1, Total Creatine Kinase 16L, Creatine Kinase MB 1.1, Creatine Kinase MB Relative Index 6.88H, Troponin I < 0.02, NT- Pro-B-Type Natriuretic Peptide 960H, Total Protein 6.0L, Albumin 2.7L, Albumin/Globulin Ratio 0.82L, Lipase 59L 05/12/19 08:22: POC Glucose (Misc Panel) 184H, POC Sodium (Misc Panel) 137, POC Potassium (Misc Panel) 3.6, POC Chloride (Misc Panel) 101, POC Total CO2 (Misc Panel) 25.0, POC Blood Urea Nitrogen (Misc Panel 41H, POC Ionized Calcium (Misc Panel) 5.0, POC Creatinine (Misc Panel) 2.2H, POC Hematocrit (Misc Panel) 37.0L 05/12/19 08:27: Lactic Acid Level 1.3 05/12/19 12:04: Urine Color YELLOW, Urine Appearance TURBIDH, Urine pH 6.0, Urine Specific [place] 1.012, Urine Protein 1+H, Urine Glucose (UA) NEGATIVE, Urine Ketones NEGATIVE, Urine Blood 1+H, Urine Nitrite NEGATIVE, Urine Bilirubin NEGATIVE, Urine Urobilinogen 0.2, Urine Leukocyte Esterase 3+H, Urine WBC (Auto) TNTCH, Urine RBC (Auto) 16H, Urine Hyaline Casts (Auto) 0, Urine Bacteria (Auto) 3+H, Urine Squamous Epithelial Cells 48, Urine Mucus (Auto) SMALL, Urine Sperm (Auto) CBC/BMP Laboratory Tests 05/12/19 08:20 Red Blood Count 3.68 L, Mean Corpuscular Volume 97.6 H, Mean Corpuscular Hemoglobin 32.1, Mean Corpuscular Hemoglobin Concent 32.9, Red Cell Distribution Width 14.8 H, Neutrophils (%) (Auto) 52.8, Lymphocytes (%) (Auto) 32.9, Mo nocytes (%) (Auto) 10.4 H, Eosinophils (%) (Auto) 2.9, Basophils (%) (Auto) 0.3, Neutrophils # (Auto) 3.1, Lymphocytes # (Auto) 1.9, Monocytes # (Auto) 0.6, Eosinophils # (Auto) 0.2, Basophils # (Auto) 0.0 Microbiology Microbiology 05/12/19 Blood Culture, Received Pending 05/12/19 Blood Culture, Received Pending 05/12/19 Urine Culture, Received Pending Home Medications Scheduled Acetaminophen (Tylenol Arthritis) 650 Mg Tablet.er, 650 MG PO BID Allopurinol (Allopurinol) 100 Mg Tab, 100 MG PO DAILY Aspirin (Aspirin EC) 81 Mg Tab, 81 MG PO DAILY Bimatoprost (Lumigan) 50 Drop/2.5 Ml Eleanor, 1 DROP OU QHS Brinzolamide (Azopt) 1 % Taya, 1 DROP OU BID Calcitriol (Rocaltrol) 0.25 Mcg Cap, 0.25 MCG PO DAILY Cholecalciferol (Vitamin D3) (Vitamin D3) 1,000 Unit Tab, 2,000 UNIT PO DAILY Cyanocobalamin (Vitamin B-12) (Vitamin B-12) 500 Mcg Tablet, 500 MCG PO DAILY Ferrous Gluconate (Ferrous Gluconate) 324 Mg Tablet, 324 MG PO BID Insulin Glargine (Lantus) 1 Units/0.01 Ml Susp, 10 UNITS SC QHS Cameron-3 Fatty Acids/Fish Oil (Cameron 3 1,000 mg Softgel) 1 Cap Cap, 1 CAP PO BID Pantoprazole Sodium (Pantoprazole Sodium) 40 Mg Tablet.dr, 40 MG PO BID Potassium Chloride (Potassium Chloride) 20 Meq Tablet.er, 20 MEQ PO DAILY Rivaroxaban (Xarelto) 15 Mg Tablet, 15 MG PO DAILY Salmeterol/Fluticasone (Advair 500-50 Diskus) 1 Each Blst.w.dev, 1 PUFF INH BID Spironolactone (Spironolactone) 25 Mg Tablet, 12.5 MG PO DAILY Torsemide (Torsemide) 10 Mg Tablet, 10 MG PO DAILY 30MG TOTAL DAILY Torsemide (Torsemide) 20 Mg Tablet, 20 MG PO DAILY 30MG TOTAL DAILY Vit A/Vit C/Vit E/Zinc/Copper (Preservision Areds Tablet) 1 Each Tablet, 1 TAB PO BID Scheduled PRN Albuterol Sulfate (Proair Hfa) 108 Mcg/Act Aer, 2 PUFFS INH Q4H PRN for SHORTNESS OF BREATH Nitroglycerin (Nitrostat) 0.4 Mg Subl, 0.4 MG SL NITRO PRN for CHEST PAIN Allergies Coded Allergies: carvedilol (Verified Allergy, Severe, difficulty breathing, 04/09/19) pitavastatin (Verified Allergy, Severe, anaphylaxis, 04/09/19) dexamethasone (Verified Allergy, Intermediate, eyes burn, 04/09/19) dorzolamide (Verified Allergy, Intermediate, eyes burn, 04/09/19) neomycin (Verified Allergy, Intermediate, eyes burn, 04/09/19) polymyxin B (Verified Allergy, Intermediate, eyes burn, 04/09/19) timolol (Verified Allergy, Intermediate, eyes burn, 04/09/19) Penicillins (Verified Allergy, Mild, rash, 04/09/19) Quinolones (Verified Allergy, Mild, rash, 04/09/19) DG Inhibitors (Verified Adverse Reaction, Intermediate, kidney problems / cough, 04/09/19) Mmlebec-Sxw-Mku Reductase Inhibitor (Verified Adverse Reaction, Mild, myalgia, 04/09/19) colesevelam (Verified Adverse Reaction, Mild, myalgia, 04/09/19) ezetimibe (Verified Adverse Reaction, Mild, myalgia, 04/09/19) losartan (Verified Adverse Reaction, Mild, nausea / no appetite, 04/09/19) A-FIB/CHADSVASC A-FIB History Current/History of A-Fib/PAF?: Yes Current PO Anticoag Therapy: Yes RANDA GOODRICH MD May 12, 2019 15:02
[2019-05-12] MEDS: ASPIRIN 81 MG ENTERIC TAB PO SCH (15:49)
[2019-05-12] MEDS: VITAMIN D 1,000 INTERNATIONAL UNITS TABLET PO SCH (15:49)
[2019-05-12] MEDS: CYANOCOBALAMIN 500 MCG TAB PO SCH (15:49)
[2019-05-12 16:20] LABS: CALCIUM LEVEL 8.8 MG/DL (8.8-10.2); CREATININE FOR GFR 1.76 MG/DL (0.55-1.30); GLOMERULAR FILTRATION RATE 29.4 (>32); POTASSIUM SERUM 3.3 MEQ/L (3.5-5.1)
[2019-05-12] MEDS: HumaLOG INSULIN (NovoLOG) PER UNIT SC SCH ×2 (17:30→21:21)
[2019-05-12] MEDS: CALCITRIOL 0.25 MCG CAP (S0169) PO SCH (18:39)
[2019-05-12] MEDS: RIVAROXABAN 15 MG TAB (XARELTO) PO SCH (18:40)
[2019-05-12] MEDS: ONDANSETRON 4MG/2ML VIAL (J2405) IV SCH (18:40)
--- NOTE | 2019-05-12 19:21 | ECGEPIP ---
[facility] - ED Test Date: 2019-05-12 Pat Name: SILVIA BAER Department: Room: - Gender: Female Ball Maker: : [id number] Requested By: Abbi Love Order Number: [id number] Reading MD: Zack Vazquez Measurements Intervals [place] Rate: 84 P: 67 NH: 182 QRS: -51 QRSD: 126 T: 34 QT: 393 QTc: 467 Interpretive Statements SINUS RHYTHM INCOMPLETE RIGHT BUNDLE BRANCH BLOCK LEFT ANTERIOR FASCICULAR BLOCK VOLTAGE CRITERIA FOR LVH ANTEROLATERAL MYOCARDIAL INFARCTION, PROBABLY OLD SIMILAR TO 04/09/19 Electronically Signed on 05-12-2019 19:21:22 EDT by Zack Vazquez
[2019-05-12] MEDS: ADVAIR HFA 230/21MCG INHALER INH SCH (19:33)
[2019-05-12] MEDS: PANTOPRAZOLE 40MG TAB (PROTONIX) PO SCH (21:21)
[2019-05-12] MEDS: FERROUS GLUCONATE 324 MG TAB PO SCH (21:21)
[2019-05-12] MEDS: ACETAMINOPHEN 650MG ER TAB (TYLENOL ARTHRITIS) PO SCH (21:21)
[2019-05-12] MEDS: OCUVITE 1 TAB PO SCH (21:21)
[2019-05-12] MEDS: OMEGA-3 1000MG CAPSULE PO SCH (21:21)
[2019-05-12 22:00] VITALS: BP 126/65
[2019-05-13] MEDS: ONDANSETRON 4MG/2ML VIAL (J2405) IV SCH ×4 (00:46→18:35)
[2019-05-13 06:00] VITALS: BP 124/65
[2019-05-13 07:31] LABS: MEAN CORPUSCULAR HEMOGLOBIN 30.3 pg (27.0-33.0); MEAN CORPUSCULAR VOLUME 97.7 fl (80.0-96.0); PLATELET COUNT, AUTOMATED 268 10^3/uL (150-450); RED BLOOD COUNT 3.07 10^6/uL (4.00-5.40); WHITE BLOOD COUNT 5.5 10^3/uL (4.0-10.0)
[2019-05-13 07:40] LABS: HEMOGLOBIN 9.3 g/dl (12.0-15.5)
[2019-05-13 07:50] LABS: CALCIUM LEVEL 8.7 MG/DL (8.8-10.2); CREATININE FOR GFR 1.69 MG/DL (0.55-1.30); GLOMERULAR FILTRATION RATE 30.8 (>32); POTASSIUM SERUM 3.7 MEQ/L (3.5-5.1)
[2019-05-13] MEDS: HumaLOG INSULIN (NovoLOG) PER UNIT SC SCH ×4 (08:31→20:57)
[2019-05-13] MEDS: OCUVITE 1 TAB PO SCH ×2 (08:32→20:48)
[2019-05-13] MEDS: ASPIRIN 81 MG ENTERIC TAB PO SCH (08:32)
[2019-05-13] MEDS: CALCITRIOL 0.25 MCG CAP (S0169) PO SCH (08:32)
[2019-05-13] MEDS: OMEGA-3 1000MG CAPSULE PO SCH ×2 (08:32→20:47)
[2019-05-13] MEDS: VITAMIN D 1,000 INTERNATIONAL UNITS TABLET PO SCH (08:32)
[2019-05-13] MEDS: ACETAMINOPHEN 650MG ER TAB (TYLENOL ARTHRITIS) PO SCH ×2 (08:32→20:47)
[2019-05-13] MEDS: FERROUS GLUCONATE 324 MG TAB PO SCH ×2 (08:32→20:47)
[2019-05-13] MEDS: CYANOCOBALAMIN 500 MCG TAB PO SCH (08:32)
[2019-05-13] MEDS: PANTOPRAZOLE 40MG TAB (PROTONIX) PO SCH ×2 (08:32→20:47)
[2019-05-13] MEDS: ADVAIR HFA 230/21MCG INHALER INH SCH ×2 (09:38→18:10)
--- NOTE | 2019-05-13 10:20 | IPNPDOC ---
Text Note Date of Service The patient was seen on 05/13/19. NOTE Subjective: Patient is an 84-year-old female who presented to the emergency department yesterday with worsening weakness and dry heaving. Patient was recently admitted in the hospital first couple weeks of April. Since the patient has been discharged home she has not been able to move around her house and take care of herself. Patient says that she lives on a 2 floor home with the bathroom and bedroom being upstairs. She is unable to get upstairs without help. Patient is ready and willing to move into an assisted living facility. Patient also says that she has been having increased nausea and decreased appetite since she was discharged from the hospital. She does not say she has any episodes of vomiting however, eating is very difficult for her. Today she woke up and felt nauseous after having some water. She received some anti-nausea medication and it feels slightly better and was trying to eat cream of wheat which was going okay according to the patient. Patient does still have some abdominal pain but is doing okay. Review of systems General: Patient denies fevers HEENT: Patient denies headaches Cardiovascular: Patient denies chest pain Respiratory: Patient denies shortness of breath, cough GI: Patient endorses abdominal pain and nausea but has not vomited. : Patient complained of frequency with urination but no pain or difficulty. Neurological: Patient endorses numbness to her feet bilaterally. This is chronic in nature. Extremities: Patient denies swelling or pain in extremities Objective: Vitals: (see below) General: No acute distress, laying comfortably in bed. HEENT: Normocephalic, atraumatic, moist mucous membranes. Neck: No JVD or lymphadenopathy Cardiac: RRR, No murmurs Pulm: Clear to auscultation b/l. No wheezing, rhonchi Abd: Normal bowel sounds. There is tenderness to palpation mostly in the left lower quadrant. Ext: Trace edema bilateral lower extremities. Labs (see below) Images: A chest x-ray performed on 05/12/2018 showed mild left aches platelike atelectasis, pacemaker, otherwise no acute disease. A CT of the abdomen and pelvis performed on this 05/12/2019 showed no obvious acute abdominal pelvic pathology appreciated, chronic and postsurgical changes including prior colectomy and normal-appearing ileocolonic anastomosis at the sigmoid level. Prior cholecystectomy and hysterectomy. No ascites, focal inflammatory stranding, or adenopathy. Assessment/Plan 1. Weakness, nausea, and vomiting. Likely secondary to urinary tract infection. UA is abnormal and blood cultures are pending. At this time she is hemodynamically stable. We are in he continue with ceftriaxone. 2. Acute kidney injury. Patient's creatinine is 1.69 today which is slightly improved from the day prior. We will continue to monitor and we will hold off on nephrotoxic agents. 3. Diabetes mellitus. We'll provide insulin sliding scale and consistent carb diet. 4. Sick sinus syndrome. She is status post pacemaker. Patient is on Xarelto for anticoagulation. 5. DVT. She is on Xarelto and status post IVC filter placement. 6. Coronary artery disease. She is not on a beta april she is intolerant to statins. She is on aspirin. 7. Glaucoma and macular degeneration. We have continued her outpatient eyedrops. 8. Hypertension. We are holding her diuretics and we'll monitor her volume status and renal function closely. 9. Iron deficiency anemia. Continue supplementation. 10. Recent GI bleed continue with Protonix by mouth twice a day. 11. Vitamin deficiencies. Continue with vitamin D and B12 supplementation. DVT prophy: Xarelto Dispo: Pending clinical improvement and placement in assisted living facility. I saw and evaluated the patient. I agree with the findings and plan of care as documented in the above note VSJosie, I+O VSJosie, I+O Laboratory Tests 05/12/19 15:50 Calcium Level 8.8 05/13/19 06:25 Calcium Level 8.7 L, Red Blood Count 3.07 L, Mean Corpuscular Volume 97.7 H, Mean Corpuscular Hemoglobin 30.3, Mean Corpuscular Hemoglobin Concent 31.0 L, Red Cell Distribution Width 14.8 H Vital Signs Date Time Temp Pulse Resp B/P (MAP) Pulse Ox O2 Delivery O2 Flow Rate FiO2 05/13/19 06:00 97.8 86 18 124/65 (84) 95 05/12/19 16:32 Room Air I&O- Last 24 Hours up to 6 AM 05/13/19 05:59 Intake Total 1670 ml Balance 1670 ml SHE CERON DO May 13, 2019 10:20 RANDA GOODRICH MD May 15, 2019 06:59
[2019-05-13] MEDS: BRINZOLAMIDE 1 % OPHTH SUSP (AZOPT) 10ML OU SCH ×2 (12:17→20:47)
[2019-05-13 14:00] VITALS: BP 121/83
[2019-05-13] MEDS: cefTRIAXone SOD 1 GM in D5W MINI-BAG PLUS 50 ML IV SCH (14:31)
[2019-05-13] MEDS: RIVAROXABAN 15 MG TAB (XARELTO) PO SCH (18:35)
[2019-05-13] MEDS: LATANOPROST 0.005% OPHTH SOLN 2.5 ML OU SCH (20:46)
[2019-05-13] MEDS ORDERED: ENTER DRUG NAME HERE (PATIENT'S OWN MED) OU SCH (21:00)
[2019-05-13 22:00] VITALS: BP 123/48
[2019-05-14] MEDS: ONDANSETRON 4MG/2ML VIAL (J2405) IV SCH ×4 (00:54→17:39)
[2019-05-14 06:00] VITALS: BP 124/52
[2019-05-14 06:54] LABS: HEMATOCRIT 29.5 % (36.0-47.0); HEMOGLOBIN 9.4 g/dl (12.0-15.5); MEAN CORPUSCULAR HEMOGLOBIN 31.5 pg (27.0-33.0); MEAN CORPUSCULAR HGB CONC 31.9 g/dl (32.0-36.5); PLATELET COUNT, AUTOMATED 248 10^3/uL (150-450); RED BLOOD COUNT 2.98 10^6/uL (4.00-5.40); WHITE BLOOD COUNT 5.4 10^3/uL (4.0-10.0)
[2019-05-14 07:24] LABS: CALCIUM LEVEL 8.6 MG/DL (8.8-10.2); CREATININE FOR GFR 1.7 MG/DL (0.55-1.30); GLOMERULAR FILTRATION RATE 30.6 (>32); POTASSIUM SERUM 3.4 MEQ/L (3.5-5.1)
[2019-05-14] MEDS: ADVAIR HFA 230/21MCG INHALER INH SCH ×2 (07:58→19:48)
[2019-05-14] MEDS: VITAMIN D 1,000 INTERNATIONAL UNITS TABLET PO SCH (08:01)
[2019-05-14] MEDS: FERROUS GLUCONATE 324 MG TAB PO SCH ×2 (08:01→20:55)
[2019-05-14] MEDS: PANTOPRAZOLE 40MG TAB (PROTONIX) PO SCH ×2 (08:01→20:54)
[2019-05-14] MEDS: OMEGA-3 1000MG CAPSULE PO SCH ×2 (08:01→20:54)
[2019-05-14] MEDS: ASPIRIN 81 MG ENTERIC TAB PO SCH (08:01)
[2019-05-14] MEDS: ACETAMINOPHEN 650MG ER TAB (TYLENOL ARTHRITIS) PO SCH ×2 (08:01→20:55)
[2019-05-14] MEDS: OCUVITE 1 TAB PO SCH ×2 (08:01→20:55)
[2019-05-14] MEDS: CALCITRIOL 0.25 MCG CAP (S0169) PO SCH (08:02)
[2019-05-14] MEDS: CYANOCOBALAMIN 500 MCG TAB PO SCH (08:02)
[2019-05-14] MEDS: BRINZOLAMIDE 1 % OPHTH SUSP (AZOPT) 10ML OU SCH ×2 (08:03→20:55)
[2019-05-14] MEDS: HumaLOG INSULIN (NovoLOG) PER UNIT SC SCH ×4 (08:03→20:55)
--- NOTE | 2019-05-14 10:19 | IPNPDOC ---
Date Seen The patient was seen on 05/14/19. Progress Note SUBJECTIVE: Patient tells me that she still has some intermittent nausea with dry heaves, however she is certainly better than when she presented to the hospital she is tolerating a diet and notices daily improvement. She tells me that she was able to get up and ambulate a little bit which is more than she has been doing at home of late otherwise patient denies chest pain, shortness breath, fevers, chills or dysuria OBJECTIVE PHYSICAL EXAMINATION: VITAL SIGNS: Please see below. GENERAL: Pleasant frail elderly woman lying in bed awake alert oriented speaking in complete sentences no acute distress HEENT: Moist mucous membranes no elevation in CVP CARDIOVASCULAR: S1 S2 regular no additional heart sounds appreciated. RESPIRATORY: Clear to auscultation bilaterally. ABDOMINAL: Bowel sounds present abdomen soft and nontender EXTREMITIES: No clubbing cyanosis, trace edema NEUROLOGICAL: Spontaneously moves all 4 extremities cranial 2 through 12 grossly intact no gross focal deficits appreciated PSYCHOLOGICAL: Appropriate LABORATORY DATA: See below. MICROBIOLOGY: Please see below. IMAGING: CT abdomen pelvis: 1. No obvious acute abdominopelvic pathology appreciated. 2. Chronic and postsurgical changes as described above including prior colectomy with normal appearing ileocolonic anastomosis at the sigmoid level. Prior cholecystectomy and hysterectomy. 3. No ascites, focal inflammatory stranding, or adenopathy. No free air. Chest x-ray:Mild left base plate-like atelectasis. Pacemaker. Otherwise no acute disease. ASSESSMENT & PLAN: This is a 84-year-old female with weakness nausea and vomitin g. Likely secondary to urinary tract infection. PROBLEMS: 1. Weakness nausea and vomiting: Likely secondary to urinary tract infection. Her UA is abnormal and urine culture blood appears contaminated. She has been improving on antibiotic therapy which we will continue for the time being I suspect she could have a fairly short course. Her symptoms do appear to be resolving with treatment. Her remaining nausea and dry heaves may resolve with continued therapy in time however could certainly be secondary to her significant abdominal pathology and her recent bowel obstruction. She did have a recent upper endoscopy last month which was fairly unremarkable. The patient is certainly weak at her baseline physical therapy stated that she is not safe the patient and her daughter interested in assisted living facility with PFS consult tomorrow 2. Acute kidney injury: Likely lab error from [id number] testing repeats have been consistent and close to her baseline. Consider resuming home diuretics in the near future 3. Diabetes mellitus: Continue with insulin sliding scale consistent carb diet 4.Sick sinus syndrome: She is status post pacer she does not require any rate controlling agents it appears, she is anticoagulated 5. DVT: She is on Xarelto she is status post an IVC filter outpatient follow-up with interventional radiology for removal when they feel appropriate 6. Coronary artery disease she is not a beta april she is intolerant to statins she is on an aspirin. We'll defer to her outpatient providers 7. Glaucoma and macular degeneration: Continue her outpatient eyedrops 8. Hypertension: We are holding her diuretics and this time monitor her volume status will resume in the near future blood pressure appears to be well- controlled at this time. 9. Iron deficiency anemia: Continue supplementation 10. Recent GI bleed: Continue with Protonix by mouth twice a day 11. Vitamin deficiencies: Continue with vitamin D and B12 supplementation DVT PROPHYLAXIS: Anticoagulation DISPOSITION: Pending PFS consult possible placement VS, I&O, 24H, Fishbone Vital Signs/I&O Vital Signs Date Time Temp Pulse Resp B/P (MAP) Pulse Ox O2 Delivery O2 Flow Rate FiO2 05/14/19 06:00 97.9 78 18 124/52 (76) 94 05/12/19 16:32 Room Air I&O- Last 24 Hours up to 6 AM 05/14/19 05:59 Intake Total 460 ml Output Total 600 ml Balance -140 ml Laboratory Data 24H LABS Laboratory Tests 2 05/13/19 11:56: Bedside Glucose (Misc Panel) 173H 05/13/19 17:57: Bedside Glucose (Misc Panel) 133H 05/13/19 20:01: Bedside Glucose (Misc Panel) 225H 05/14/19 06:33: Nucleated Red Blood Cells % (auto) 0.0, Anion Gap 11, Glomerular Filtration Rate 30.6L, Blood Urea Nitrogen 32H, Creatinine 1.70H, Sodium Level 144, Potassium Level 3.4L, Chloride Level 112H, Carbon Dioxide Level 21, Calcium Level 8.6L CBC/BMP Laboratory Tests 05/14/19 06:33 Red Blood Count 2.98 L, Mean Corpuscular Volume 99.0 H, Mean Corpuscular Hemoglo bin 31.5, Mean Corpuscular Hemoglobin Concent 31.9 L, Red Cell Distribution Width 14.7 H, Calcium Level 8.6 L Microbiology Microbiology 05/12/19 Blood Culture - Preliminary, Resulted No growth after 24 hours . All specim... 05/12/19 Blood Culture - Preliminary, Resulted No growth after 24 hours . All specim... 05/12/19 Urine Culture - Final, Complete RANDA GOODRICH MD May 14, 2019 10:19
[2019-05-14] MEDS: cefTRIAXone SOD 1 GM in D5W MINI-BAG PLUS 50 ML IV SCH (14:12)
[2019-05-14 15:08] VITALS: BP 118/51
[2019-05-14] MEDS: RIVAROXABAN 15 MG TAB (XARELTO) PO SCH (17:39)
[2019-05-14] MEDS: LATANOPROST 0.005% OPHTH SOLN 2.5 ML OU SCH (20:55)
[2019-05-14 22:00] VITALS: BP 127/57
[2019-05-15] MEDS: ONDANSETRON 4MG/2ML VIAL (J2405) IV SCH ×5 (00:06→23:58)
[2019-05-15 05:39] LABS: HEMATOCRIT 27.6 % (36.0-47.0); HEMOGLOBIN 8.6 g/dl (12.0-15.5); MEAN CORPUSCULAR HEMOGLOBIN 30.2 pg (27.0-33.0); MEAN CORPUSCULAR HGB CONC 31.2 g/dl (32.0-36.5); MEAN CORPUSCULAR VOLUME 96.8 fl (80.0-96.0); PLATELET COUNT, AUTOMATED 255 10^3/uL (150-450); RED BLOOD COUNT 2.85 10^6/uL (4.00-5.40); WHITE BLOOD COUNT 5.8 10^3/uL (4.0-10.0)
[2019-05-15 06:00] VITALS: BP 128/58
[2019-05-15 06:11] LABS: CALCIUM LEVEL 8.9 MG/DL (8.8-10.2); CREATININE FOR GFR 1.63 MG/DL (0.55-1.30); GLOMERULAR FILTRATION RATE 32.2 (>32); POTASSIUM SERUM 3.3 MEQ/L (3.5-5.1)
[2019-05-15] MEDS: HumaLOG INSULIN (NovoLOG) PER UNIT SC SCH ×4 (07:30→21:00)
[2019-05-15] MEDS ORDERED: SIMETHICONE 80 MG CHEW TAB PO PRN (08:00)
[2019-05-15] MEDS: ADVAIR HFA 230/21MCG INHALER INH SCH ×2 (08:16→21:06)
[2019-05-15] MEDS: OMEGA-3 1000MG CAPSULE PO SCH ×2 (09:00→21:28)
[2019-05-15] MEDS: FERROUS GLUCONATE 324 MG TAB PO SCH ×2 (09:16→21:28)
[2019-05-15] MEDS: PANTOPRAZOLE 40MG TAB (PROTONIX) PO SCH ×2 (09:17→21:28)
[2019-05-15] MEDS: VITAMIN D 1,000 INTERNATIONAL UNITS TABLET PO SCH (09:17)
[2019-05-15] MEDS: CYANOCOBALAMIN 500 MCG TAB PO SCH (09:17)
[2019-05-15] MEDS: CALCITRIOL 0.25 MCG CAP (S0169) PO SCH (09:17)
[2019-05-15] MEDS: ACETAMINOPHEN 650MG ER TAB (TYLENOL ARTHRITIS) PO SCH ×2 (09:17→21:28)
[2019-05-15] MEDS: ASPIRIN 81 MG ENTERIC TAB PO SCH (09:17)
[2019-05-15] MEDS: OCUVITE 1 TAB PO SCH ×2 (09:17→21:28)
[2019-05-15] MEDS: BRINZOLAMIDE 1 % OPHTH SUSP (AZOPT) 10ML OU SCH ×2 (09:17→21:28)
[2019-05-15 10:49] LABS: MAGNESIUM LEVEL 1.8 MG/DL (1.8-2.4)
[2019-05-15] MEDS ORDERED: POTASSIUM CHLORIDE 10 MEQ SR TABLET PO ONE (11:00)
--- NOTE | 2019-05-15 13:29 | IPNPDOC ---
Text Note Date of Service The patient was seen on 05/15/19. NOTE Subjective: Patient was seen and examined at bedside. Patient says that she is still having her intermittent nausea with dry heaves discussion morning. Patient is also complaining of crampy abdominal pain this morning. Patient says she has had a bowel movement although it was small and has been passing gas. Review of systems General: Patient denies fevers HEENT: Patient denies headaches Cardiovascular: Patient denies chest pain Respiratory: Patient denies shortness of breath, cough GI: Patient is complaining about abdominal pain and nausea. Patient has not vomited. : Patient denies pain or difficulty with urination Neurological: Patient denies numbness or tingling in extremities Extremities: Patient denies swelling or pain in extremities Objective: Vitals: (see below) General: No acute distress, laying comfortably in bed. HEENT: Normocephalic, atraumatic, moist mucous membranes. Neck: No JVD or lymphadenopathy Cardiac: RRR, No murmurs Pulm: Clear to auscultation b/l. No wheezing, rhonchi Abd: Abdomen is tender to palpation worse in the lower left quadrant. Ext: No edema or cyanosis. Radial, posterior tibial, and dorsalis pedis pulses equal bilaterally. Labs (see below) Images: No new imaging is been performed Assessment/Plan 1. Weakness, nausea, and vomiting. This is likely secondary to urinary tract infection. Patient is improving on antibiotic therapy. Patient is also complaining of gassy abdominal pain which I've written simethicone for. We will see how the patient does with this medication and see if we need to either reassess or reevaluate why she is still nauseous and having the abdominal pain. 2. Acute kidney injury. Patient is now close to her baseline and we'll continue to monitor. The initial tests were done with [id number] testing in January of than an hour. 3. Diabetes mellitus. Continue with insulin sliding scale and consistent carb ohydrate diet. 4. Sick sinus syndrome. She is status post pacemaker and does not require any rate controlling agents. She is anticoagulated. 5. Deep vein thrombosis. She is on Xarelto and is status post IVC filter. 6. Coronary artery disease. She is not on beta april she is intolerant. Patient is also intolerant to statins. She is on aspirin. 7. Glaucoma and macular degeneration. Continue her outpatient eyedrops. 8. Hypertension. We are holding her diuretic at this time and will monitor her blood pressure and volume status. 9. Iron deficiency anemia. Continue supplementation. 10. Recent GI bleed. Continue Protonix twice a day. 11. Vitamin deficiencies continue with vitamin D and B12 supplementation. DVT prophy: Xarelto Dispo: Pending placement and her assisted-living or correction facility. I saw and evaluated the patient. I agree with the findings and plan of care as documented in the above note Josie BROWN, I+O VSJosie, I+O Laboratory Tests 05/15/19 05:23 Red Blood Count 2.85 L, Mean Corpuscular Volume 96.8 H, Mean Corpuscular Hemoglobin 30.2, Mean Corpuscular Hemoglobin Concent 31.2 L, Red Cell Distribution Width 14.7 H, Calcium Level 8.9 Vital Signs Date Time Temp Pulse Resp B/P (MAP) Pulse Ox O2 Delivery O2 Flow Rate FiO2 05/15/19 06:00 97.8 82 18 128/58 (81) 95 05/12/19 16:32 Room Air I&O- Last 24 Hours up to 6 AM 05/15/19 06:00 Intake Total 450 ml Output Total 850 ml Balance -400 ml SHE CERON DO May 15, 2019 13:29 RANDA GOODRICH MD May 23, 2019 12:07
[2019-05-15] MEDS: cefTRIAXone SOD 1 GM in D5W MINI-BAG PLUS 50 ML IV SCH (14:05)
[2019-05-15 15:10] VITALS: BP 121/58
[2019-05-15] MEDS: RIVAROXABAN 15 MG TAB (XARELTO) PO SCH (17:40)
[2019-05-15 20:13] VITALS: BP 144/59
[2019-05-15] MEDS: LATANOPROST 0.005% OPHTH SOLN 2.5 ML OU SCH (21:28)
[2019-05-16 05:48] VITALS: BP 120/55
[2019-05-16] MEDS: ONDANSETRON 4MG/2ML VIAL (J2405) IV SCH ×3 (06:24→17:19)
[2019-05-16 06:30] LABS: MEAN CORPUSCULAR HEMOGLOBIN 30.4 pg (27.0-33.0); PLATELET COUNT, AUTOMATED 265 10^3/uL (150-450); RED BLOOD COUNT 2.96 10^6/uL (4.00-5.40); WHITE BLOOD COUNT 5.8 10^3/uL (4.0-10.0)
[2019-05-16 06:50] LABS: CALCIUM LEVEL 9.2 MG/DL (8.8-10.2); CREATININE FOR GFR 1.45 MG/DL (0.55-1.30); GLOMERULAR FILTRATION RATE 36.8 (>32)
[2019-05-16] MEDS: ADVAIR HFA 230/21MCG INHALER INH SCH ×2 (07:36→19:54)
[2019-05-16] MEDS: OMEGA-3 1000MG CAPSULE PO SCH ×2 (08:19→20:23)
[2019-05-16] MEDS: CYANOCOBALAMIN 500 MCG TAB PO SCH (08:19)
[2019-05-16] MEDS: OCUVITE 1 TAB PO SCH ×2 (08:19→20:23)
[2019-05-16] MEDS: PANTOPRAZOLE 40MG TAB (PROTONIX) PO SCH ×2 (08:19→20:23)
[2019-05-16] MEDS: CALCITRIOL 0.25 MCG CAP (S0169) PO SCH (08:19)
[2019-05-16] MEDS: ACETAMINOPHEN 650MG ER TAB (TYLENOL ARTHRITIS) PO SCH ×2 (08:19→20:23)
[2019-05-16] MEDS: ASPIRIN 81 MG ENTERIC TAB PO SCH (08:19)
[2019-05-16] MEDS: VITAMIN D 1,000 INTERNATIONAL UNITS TABLET PO SCH (08:19)
[2019-05-16] MEDS: FERROUS GLUCONATE 324 MG TAB PO SCH ×2 (08:19→20:23)
[2019-05-16] MEDS: BRINZOLAMIDE 1 % OPHTH SUSP (AZOPT) 10ML OU SCH ×2 (08:20→20:23)
[2019-05-16] MEDS: HumaLOG INSULIN (NovoLOG) PER UNIT SC SCH ×4 (08:20→20:18)
--- NOTE | 2019-05-16 10:09 | IPNPDOC ---
Text Note Date of Service The patient was seen on 05/16/19. NOTE Subjective: Patient is seen and examined at bedside. Patient is feeling much better today than she did yesterday. She is still complaining of some mild abdominal pain however, this is much improved. She did order breakfast this morning and she says that the nausea is much better controlled than it was yesterday. Patient did have a bowel movement yesterday however, it was after the order for stool occult blood was placed so we are still awaiting the test. There was no acute events overnight. Patient worked with physical therapy and was able to do more today than she had in the past. Review of systems General: Patient denies fevers HEENT: Patient denies headaches Cardiovascular: Patient denies chest pain Respiratory: Patient denies shortness of breath, cough GI: Patient endorses mild abdominal pain. Patient's nausea is better today than yesterday. : Patient denies pain or difficulty with urination Neurological: Patient denies numbness or tingling in extremities Extremities: Patient denies swelling or pain in extremities Objective: Vitals: (see below) General: No acute distress, laying comfortably in bed. HEENT: Normocephalic, atraumatic, moist mucous membranes. Neck: No JVD or lymphadenopathy Cardiac: RRR, No murmurs Pulm: Clear to auscultation b/l. No wheezing, rhonchi Abd: NT/ND + BS Ext: No edema bilaterally. Labs (see below) Images: No imaging has been performed. Assessment/Plan 1. Weakness, nausea, and vomiting. This is likely secondary to urinary tract infection. Patient is improving on antibiotic therapy. Patient's gassy abdominal pain is better now that patient is on simethicone. We'll continue this medication. 2. Acute kidney injury. Patient is now close to her baseline and we'll continue to monitor. The initial tests were done with [id number] testing in the emergency room which may not be as accurate as the lab. 3. Diabetes mellitus. Continue with insulin sliding scale and consistent carbohydrate diet. 4. Sick sinus syndrome. She is status post pacemaker and does not require any rate controlling agents. She is anticoagulated. 5. Deep vein thrombosis. She is on Xarelto and is status post IVC filter. 6. Coronary artery disease. She is not on beta april she is intolerant. Patient is also intolerant to statins. She is on aspirin. 7. Glaucoma and macular degeneration. Continue her outpatient eyedrops. 8. Hypertension. We are holding her diuretic at this time and will monitor her blood pressure and volume status. 9. Iron deficiency anemia. Continue supplementation. 10. Recent GI bleed. Continue Protonix twice a day. We are checking a fecal occult blood as her hemoglobin has slightly dropped but is now stable today. 11. Vitamin deficiencies continue with vitamin D and B12 supplementation. DVT prophy: Xarelto Dispo: Pending placement in assisted living or detention facility. VS,Fishbone, I+O VS, Fishbone, I+O Laboratory Tests 05/16/19 06:08 Red Blood Count 2.96 L, Mean Corpuscular Volume 98.0 H, Mean Corpuscular Hemoglobin 30.4, Mean Corpuscular Hemoglobin Concent 31.0 L, Red Cell Distribution Width 15.1 H, Calcium Level 9.2 Vital Signs Date Time Temp Pulse Resp B/P (MAP) Pulse Ox O2 Delivery O2 Flow Rate FiO2 05/16/19 05:48 97.7 74 16 120/55 (76) 95 05/12/19 16:32 Room Air I&O- Last 24 Hours up to 6 AM 05/16/19 05:59 Intake Total 1510 ml Output Total 1050 ml Balance 460 ml GME ATTESTATION GME ATTESTATION My faculty preceptor for this patient encounter was physically present during the encounter and was fully available. All aspects of the patient interview, examination, medical decision making process, and medical care plan development were reviewed and approved by the faculty preceptor. The faculty preceptor is aware and concurs with the plan as stated in the body of this note and will attest to such by his/her cosignature. ATTENDING NOTE I, Josh Ceja, have independently examined this patient and performed my own physical exam, as well as reviewed the documentation and edited where necessary. I have discussed in detail with the resident / student the findings and plan of treatment as documented by the resident / student and edited their note. I agree with their findings and treatment plan and have edited their documentation. I will continue to follow the patient during this hospital stay. SHE CERON DO May 16, 2019 10:09 JOSH CEJA MD May 16, 2019 15:44
[2019-05-16] MEDS: CEFDINIR 300 MG CAP (OMNICEF) PO SCH ×2 (12:40→20:23)
[2019-05-16 15:06] VITALS: BP 126/63
[2019-05-16] MEDS: RIVAROXABAN 15 MG TAB (XARELTO) PO SCH (17:19)
[2019-05-16 20:02] VITALS: BP 124/65
[2019-05-16] MEDS: LATANOPROST 0.005% OPHTH SOLN 2.5 ML OU SCH (20:23)
[2019-05-17] MEDS: ONDANSETRON 4MG/2ML VIAL (J2405) IV SCH ×2 (00:51→06:28)
[2019-05-17 06:11] LABS: HEMATOCRIT 27.6 % (36.0-47.0); HEMOGLOBIN 8.9 g/dl (12.0-15.5); MEAN CORPUSCULAR HEMOGLOBIN 31.8 pg (27.0-33.0); MEAN CORPUSCULAR HGB CONC 32.2 g/dl (32.0-36.5); MEAN CORPUSCULAR VOLUME 98.6 fl (80.0-96.0); PLATELET COUNT, AUTOMATED 240 10^3/uL (150-450); WHITE BLOOD COUNT 5.5 10^3/uL (4.0-10.0)
[2019-05-17 06:15] VITALS: BP 125/65
[2019-05-17 06:35] LABS: CREATININE FOR GFR 1.47 MG/DL (0.55-1.30); GLOMERULAR FILTRATION RATE 36.2 (>32); POTASSIUM SERUM 3.8 MEQ/L (3.5-5.1)
[2019-05-17] MEDS: ADVAIR HFA 230/21MCG INHALER INH SCH ×2 (07:15→18:30)
[2019-05-17] MEDS: HumaLOG INSULIN (NovoLOG) PER UNIT SC SCH ×4 (07:58→20:43)
[2019-05-17] MEDS: CALCITRIOL 0.25 MCG CAP (S0169) PO SCH (07:59)
[2019-05-17] MEDS: PANTOPRAZOLE 40MG TAB (PROTONIX) PO SCH ×2 (07:59→20:42)
[2019-05-17] MEDS: CEFDINIR 300 MG CAP (OMNICEF) PO SCH ×2 (07:59→20:42)
[2019-05-17] MEDS: OCUVITE 1 TAB PO SCH ×2 (07:59→20:42)
[2019-05-17] MEDS: ASPIRIN 81 MG ENTERIC TAB PO SCH (07:59)
[2019-05-17] MEDS: ACETAMINOPHEN 650MG ER TAB (TYLENOL ARTHRITIS) PO SCH ×2 (07:59→20:42)
[2019-05-17] MEDS: FERROUS GLUCONATE 324 MG TAB PO SCH ×2 (08:00→20:42)
[2019-05-17] MEDS: VITAMIN D 1,000 INTERNATIONAL UNITS TABLET PO SCH (08:00)
[2019-05-17] MEDS: OMEGA-3 1000MG CAPSULE PO SCH ×2 (08:00→20:42)
[2019-05-17] MEDS: CYANOCOBALAMIN 500 MCG TAB PO SCH (08:00)
[2019-05-17] MEDS: BRINZOLAMIDE 1 % OPHTH SUSP (AZOPT) 10ML OU SCH ×2 (08:00→20:43)
--- NOTE | 2019-05-17 11:06 | IPNPDOC ---
Text Note Date of Service The patient was seen on 05/17/19. NOTE Subjective: Patient is seen examined while sitting in chair. Patient is feeling better today. She was having some nausea earlier on this morning after drinking some cold water however, she does Zofran and this did help. Patient has been worked with physical therapy and has been improving. Patient's abdominal pain is improved today. Patient has been eating. There is no acute events overnight. Review of systems General: Patient denies fevers HEENT: Patient denies headaches Cardiovascular: Patient denies chest pain Respiratory: Patient denies shortness of breath, cough GI: Patient endorses nausea. Patient's abdominal pain is improved. Patient denies diarrhea. : Patient denies pain or difficulty with urination Neurological: Patient denies numbness or tingling in extremities Extremities: Patient denies swelling or pain in extremities Objective: Vitals: (see below) General: No acute distress, laying comfortably in bed. HEENT: Normocephalic, atraumatic, moist mucous membranes. Neck: No JVD or lymphadenopathy Cardiac: RRR, No murmurs Pulm: Clear to auscultation b/l. No wheezing, rhonchi Abd: NT/ND + BS Ext: Trace edema bilaterally Labs (see below) Images: No new images been performed. Assessment/Plan 1. Weakness, nausea, and vomiting. Patient's urinary tract infection was the most likely cause. Patient's nausea is improving. Patient's abdominal pain is improving on simethicone. Today's lasting antibiotics. 2. Acute kidney injury. Patient is now close to her baseline and we'll continue to monitor. The initial tests were done with [id number] testing in the emergency room which may not be as accurate as the lab. 3. Diabetes mellitus. Continue with insulin sliding scale and consistent carbohydrate diet. 4. Sick sinus syndrome. She is status post pacemaker and does not require any rate controlling agents. She is anticoagulated. 5. Deep vein thrombosis. She is on Xarelto and is status post IVC filter. 6. Coronary artery disease. She is not on beta april she is intolerant. Patient is also intolerant to statins. She is on aspirin. 7. Glaucoma and macular degeneration. Continue her outpatient eyedrops. 8. Hypertension. We are holding her diuretic at this time and will monitor her blood pressure and volume status. 9. Iron deficiency anemia. Continue supplementation. 10. Recent GI bleed. Continue Protonix twice a day. We are checking a fecal occult blood as her hemoglobin has slightly dropped but is now stable today. 11. Vitamin deficiencies continue with vitamin D and B12 supplementation. DVT prophy: Xarelto Dispo: Pending placement at assisted living facility hopefully within the next 2448 hours VS,Fishbone, I+O VS, Fishbone, I+O Laboratory Tests 05/17/19 05:27 Red Blood Count 2.80 L, Mean Corpuscular Volume 98.6 H, Mean Corpuscular Hemoglobin 31.8, Mean Corpuscular Hemoglobin Concent 32.2, Red Cell Distribution Width 15.3 H, Calcium Level 9.0 Vital Signs Date Time Temp Pulse Resp B/P (MAP) Pulse Ox O2 Delivery O2 Flow Rate FiO2 05/17/19 06:15 97.8 74 18 125/65 (85) 95 05/12/19 16:32 Room Air I&O- Last 24 Hours up to 6 AM 05/17/19 05:59 Intake Total 1660 ml Output Total 950 ml Balance 710 ml GME ATTESTATION GME ATTESTATION My faculty preceptor for this patient encounter was physically present during the encounter and was fully available. All aspects of the patient interview, examination, medical decision making process, and medical care plan development were reviewed and approved by the faculty preceptor. The faculty preceptor is aware and concurs with the plan as stated in the body of this note and will attest to such by his/her cosignature. ATTENDING NOTE I, Josh Ceja, have independently examined this patient and performed my own physical exam, as well as reviewed the documentation and edited where necessary. I have discussed in detail with the resident / student the findings and plan of treatment as documented by the resident / student and edited their note. I agree with their findings and treatment plan and have edited their documentation. I will continue to follow the patient during this hospital stay. SHE CERON DO May 17, 2019 11:06 JOSH CEJA MD May 17, 2019 14:27
[2019-05-17] MEDS: ONDANSETRON 4 MG TAB (S0181) PO SCH ×2 (12:29→17:39)
[2019-05-17 14:00] VITALS: BP 134/100
[2019-05-17 14:24] VITALS: BP 130/60
[2019-05-17] MEDS: RIVAROXABAN 15 MG TAB (XARELTO) PO SCH (17:39)
[2019-05-17 20:20] VITALS: BP 146/64
[2019-05-17] MEDS: LATANOPROST 0.005% OPHTH SOLN 2.5 ML OU SCH (20:43)
[2019-05-18] MEDS: ONDANSETRON 4 MG TAB (S0181) PO SCH ×4 (00:10→17:45)
[2019-05-18 06:06] LABS: HEMATOCRIT 27.3 % (36.0-47.0); HEMOGLOBIN 8.7 g/dl (12.0-15.5); MEAN CORPUSCULAR HEMOGLOBIN 31.6 pg (27.0-33.0); MEAN CORPUSCULAR HGB CONC 31.9 g/dl (32.0-36.5); MEAN CORPUSCULAR VOLUME 99.3 fl (80.0-96.0); PLATELET COUNT, AUTOMATED 240 10^3/uL (150-450); RED BLOOD COUNT 2.75 10^6/uL (4.00-5.40); WHITE BLOOD COUNT 5.7 10^3/uL (4.0-10.0)
[2019-05-18 06:24] LABS: CALCIUM LEVEL 8.7 MG/DL (8.8-10.2); CREATININE FOR GFR 1.51 MG/DL (0.55-1.30); GLOMERULAR FILTRATION RATE 35.1 (>32); POTASSIUM SERUM 3.8 MEQ/L (3.5-5.1)
[2019-05-18 06:33] VITALS: BP 142/64
[2019-05-18] MEDS: ADVAIR HFA 230/21MCG INHALER INH SCH ×2 (07:18→20:27)
[2019-05-18] MEDS: HumaLOG INSULIN (NovoLOG) PER UNIT SC SCH ×5 (07:30→20:59)
[2019-05-18] MEDS: PANTOPRAZOLE 40MG TAB (PROTONIX) PO SCH ×2 (08:26→20:58)
[2019-05-18] MEDS: OMEGA-3 1000MG CAPSULE PO SCH ×2 (08:26→20:58)
[2019-05-18] MEDS: OCUVITE 1 TAB PO SCH ×2 (08:26→20:58)
[2019-05-18] MEDS: VITAMIN D 1,000 INTERNATIONAL UNITS TABLET PO SCH (08:26)
[2019-05-18] MEDS: FERROUS GLUCONATE 324 MG TAB PO SCH ×2 (08:26→20:58)
[2019-05-18] MEDS: ASPIRIN 81 MG ENTERIC TAB PO SCH (08:26)
[2019-05-18] MEDS: CYANOCOBALAMIN 500 MCG TAB PO SCH (08:26)
[2019-05-18] MEDS: CALCITRIOL 0.25 MCG CAP (S0169) PO SCH (08:26)
[2019-05-18] MEDS: BRINZOLAMIDE 1 % OPHTH SUSP (AZOPT) 10ML OU SCH ×2 (08:27→20:58)
[2019-05-18] MEDS: ACETAMINOPHEN 650MG ER TAB (TYLENOL ARTHRITIS) PO SCH ×2 (08:27→20:58)
--- NOTE | 2019-05-18 11:50 | IPNPDOC ---
Text Note Date of Service The patient was seen on 05/18/19. NOTE Subjective: Patient is seen and examined at bedside. Patient is feeling much better today. She is not complaining of any nausea or abdominal pain. Patient is awaiting placement at [facility] assisted living facility and is anxious about meeting the patient's nurse if she can get over to assisted living. No acute events overnight. Review of systems General: Patient denies fevers HEENT: Patient denies headaches Cardiovascular: Patient denies chest pain Respiratory: Patient denies shortness of breath, cough GI: Patient denies abdominal pain, nausea, vomiting, diarrhea : Patient denies pain or difficulty with urination Neurological: Patient denies numbness or tingling in extremities Extremities: Patient denies swelling or pain in extremities Objective: Vitals: (see below) General: No acute distress, laying comfortably in bed. HEENT: Normocephalic, atraumatic, moist mucous membranes. Neck: No JVD or lymphadenopathy Cardiac: RRR, No murmurs Pulm: Clear to auscultation b/l. No wheezing, rhonchi Abd: NT/ND + BS Ext: No edema or cyanosis. Radial, posterior tibial, and dorsalis pedis pulses equal bilaterally. Labs (see below) Images: No imaging has been performed Assessment/Plan 1. Weakness, nausea, and vomiting. Patient's UTI is been fully treated and she is feeling better. We will continue to monitor and she'll continue to work with physical therapy. 2. Acute kidney injury. Patient is now close to her baseline and we'll continue to monitor. The initial tests were done with peguv-mn-clop testing in the emergency room which may not be as accurate as the lab. 3. Diabetes mellitus. Continue with insulin sliding scale and consistent carbohydrate diet. 4. Sick sinus syndrome. She is status post pacemaker and does not require any rate controlling agents. She is anticoagulated. 5. Deep vein thrombosis. She is on Xarelto and is status post IVC filter. 6. Coronary artery disease. She is not on beta april she is intolerant. Patient is also intolerant to statins. She is on aspirin. 7. Glaucoma and macular degeneration. Continue her outpatient eyedrops. 8. Hypertension. We are holding her diuretic at this time and will monitor her blood pressure and volume status. 9. Iron deficiency anemia. Continue supplementation. 10. Recent GI bleed. Continue Protonix twice a day. We are checking a fecal occult blood as her hemoglobin has slightly dropped but is now stable today. 11. Vitamin deficiencies continue with vitamin D and B12 supplementation. DVT prophy: Xarelto Dispo: Pending placement at assisted living facility. She will be made ALC status today. VS,Fishbone, I+O VS, Fishbone, I+O Laboratory Tests 05/18/19 05:20 Red Blood Count 2.75 L, Mean Corpuscular Volume 99.3 H, Mean Corpuscular Hemoglobin 31.6, Mean Corpuscular Hemoglobin Concent 31.9 L, Red Cell Distribution Width 15.7 H, Calcium Level 8.7 L Vital Signs Date Time Temp Pulse Resp B/P (MAP) Pulse Ox O2 Delivery O2 Flow Rate FiO2 05/18/19 06:33 98.0 79 16 142/64 (90) 92 05/12/19 16:32 Room Air I&O- Last 24 Hours up to 6 AM 05/18/19 06:00 Intake Total 1790 ml Output Total 975 ml Balance 815 ml GME ATTESTATION GME ATTESTATION My faculty preceptor for this patient encounter was physically present during t he encounter and was fully available. All aspects of the patient interview, examination, medical decision making process, and medical care plan development were reviewed and approved by the faculty preceptor. The faculty preceptor is aware and concurs with the plan as stated in the body of this note and will attest to such by his/her cosignature. ATTENDING NOTE I, Josh Ceja, have independently examined this patient and performed my own physical exam, as well as reviewed the documentation and edited where necessary. I have discussed in detail with the resident / student the findings and plan of treatment as documented by the resident / student and edited their note. I agree with their findings and treatment plan and have edited their documentation. I will continue to follow the patient during this hospital stay. SHE CERON DO May 18, 2019 11:50 JOSH CEJA MD May 18, 2019 16:12
[2019-05-18] MEDS: RIVAROXABAN 15 MG TAB (XARELTO) PO SCH (17:45)
[2019-05-18] MEDS: LATANOPROST 0.005% OPHTH SOLN 2.5 ML OU SCH (20:58)
[2019-05-18 23:23] VITALS: BP 127/58
[2019-05-19] MEDS: ONDANSETRON 4 MG TAB (S0181) PO SCH ×4 (00:27→17:14)
[2019-05-19 06:43] VITALS: BP 127/58
[2019-05-19] MEDS: HumaLOG INSULIN (NovoLOG) PER UNIT SC SCH ×4 (07:30→20:38)
[2019-05-19] MEDS: ADVAIR HFA 230/21MCG INHALER INH SCH ×2 (07:32→19:50)
[2019-05-19 08:12] LABS: HEMATOCRIT 28.6 % (36.0-47.0); HEMOGLOBIN 8.9 g/dl (12.0-15.5); MEAN CORPUSCULAR HEMOGLOBIN 30.4 pg (27.0-33.0); MEAN CORPUSCULAR HGB CONC 31.1 g/dl (32.0-36.5); MEAN CORPUSCULAR VOLUME 97.6 fl (80.0-96.0); PLATELET COUNT, AUTOMATED 247 10^3/uL (150-450); RED BLOOD COUNT 2.93 10^6/uL (4.00-5.40); WHITE BLOOD COUNT 5.8 10^3/uL (4.0-10.0)
[2019-05-19 08:25] LABS: CALCIUM LEVEL 8.9 MG/DL (8.8-10.2); CREATININE FOR GFR 1.39 MG/DL (0.55-1.30); GLOMERULAR FILTRATION RATE 38.6 (>32); POTASSIUM SERUM 3.5 MEQ/L (3.5-5.1)
[2019-05-19] MEDS: ACETAMINOPHEN 650MG ER TAB (TYLENOL ARTHRITIS) PO SCH ×2 (08:54→20:37)
[2019-05-19] MEDS: VITAMIN D 1,000 INTERNATIONAL UNITS TABLET PO SCH (08:54)
[2019-05-19] MEDS: ASPIRIN 81 MG ENTERIC TAB PO SCH (08:54)
[2019-05-19] MEDS: CALCITRIOL 0.25 MCG CAP (S0169) PO SCH (08:54)
[2019-05-19] MEDS: BRINZOLAMIDE 1 % OPHTH SUSP (AZOPT) 10ML OU SCH ×2 (08:54→20:38)
[2019-05-19] MEDS: OCUVITE 1 TAB PO SCH ×2 (08:54→20:37)
[2019-05-19] MEDS: OMEGA-3 1000MG CAPSULE PO SCH ×2 (08:54→20:38)
[2019-05-19] MEDS: CYANOCOBALAMIN 500 MCG TAB PO SCH (08:54)
[2019-05-19] MEDS: FERROUS GLUCONATE 324 MG TAB PO SCH ×2 (08:54→20:38)
[2019-05-19] MEDS: PANTOPRAZOLE 40MG TAB (PROTONIX) PO SCH ×2 (08:54→20:37)
[2019-05-19] MEDS ORDERED: TUBERCULIN PPD 5 UNITS/0.1 ML ID ONE (15:00)
[2019-05-19] MEDS: RIVAROXABAN 15 MG TAB (XARELTO) PO SCH (17:14)
[2019-05-19] MEDS: LATANOPROST 0.005% OPHTH SOLN 2.5 ML OU SCH (20:38)
[2019-05-20] MEDS: ONDANSETRON 4 MG TAB (S0181) PO SCH ×5 (00:12→23:35)
[2019-05-20 06:00] VITALS: BP 126/60
[2019-05-20 07:07] LABS: HEMATOCRIT 27.8 % (36.0-47.0); HEMOGLOBIN 8.8 g/dl (12.0-15.5); MEAN CORPUSCULAR HEMOGLOBIN 30.8 pg (27.0-33.0); MEAN CORPUSCULAR HGB CONC 31.7 g/dl (32.0-36.5); MEAN CORPUSCULAR VOLUME 97.2 fl (80.0-96.0); PLATELET COUNT, AUTOMATED 224 10^3/uL (150-450); RED BLOOD COUNT 2.86 10^6/uL (4.00-5.40); WHITE BLOOD COUNT 5.5 10^3/uL (4.0-10.0)
[2019-05-20 07:27] LABS: CALCIUM LEVEL 8.7 MG/DL (8.8-10.2); CREATININE FOR GFR 1.46 MG/DL (0.55-1.30); GLOMERULAR FILTRATION RATE 36.5 (>32); POTASSIUM SERUM 3.7 MEQ/L (3.5-5.1)
[2019-05-20] MEDS: ADVAIR HFA 230/21MCG INHALER INH SCH ×2 (08:12→19:57)
[2019-05-20] MEDS: OCUVITE 1 TAB PO SCH ×2 (09:13→20:32)
[2019-05-20] MEDS: FERROUS GLUCONATE 324 MG TAB PO SCH ×2 (09:13→20:32)
[2019-05-20] MEDS: VITAMIN D 1,000 INTERNATIONAL UNITS TABLET PO SCH (09:13)
[2019-05-20] MEDS: ASPIRIN 81 MG ENTERIC TAB PO SCH (09:13)
[2019-05-20] MEDS: ACETAMINOPHEN 650MG ER TAB (TYLENOL ARTHRITIS) PO SCH ×2 (09:13→20:32)
[2019-05-20] MEDS: CALCITRIOL 0.25 MCG CAP (S0169) PO SCH (09:13)
[2019-05-20] MEDS: OMEGA-3 1000MG CAPSULE PO SCH ×2 (09:13→20:32)
[2019-05-20] MEDS: CYANOCOBALAMIN 500 MCG TAB PO SCH (09:14)
[2019-05-20] MEDS: PANTOPRAZOLE 40MG TAB (PROTONIX) PO SCH ×2 (09:14→20:32)
[2019-05-20] MEDS: HumaLOG INSULIN (NovoLOG) PER UNIT SC SCH ×4 (09:14→20:32)
[2019-05-20] MEDS: BRINZOLAMIDE 1 % OPHTH SUSP (AZOPT) 10ML OU SCH ×2 (09:14→20:32)
[2019-05-20] MEDS: RIVAROXABAN 15 MG TAB (XARELTO) PO SCH (17:39)
[2019-05-20] MEDS: LATANOPROST 0.005% OPHTH SOLN 2.5 ML OU SCH (20:32)
[2019-05-21] MEDS: ONDANSETRON 4 MG TAB (S0181) PO SCH ×3 (05:32→17:25)
[2019-05-21 06:00] VITALS: BP 126/60
[2019-05-21 06:11] LABS: HEMATOCRIT 29.2 % (36.0-47.0); HEMOGLOBIN 8.9 g/dl (12.0-15.5); MEAN CORPUSCULAR HGB CONC 30.5 g/dl (32.0-36.5); MEAN CORPUSCULAR VOLUME 101.7 fl (80.0-96.0); PLATELET COUNT, AUTOMATED 209 10^3/uL (150-450); RED BLOOD COUNT 2.87 10^6/uL (4.00-5.40); WHITE BLOOD COUNT 6.1 10^3/uL (4.0-10.0)
[2019-05-21 06:37] LABS: CALCIUM LEVEL 8.7 MG/DL (8.8-10.2); CREATININE FOR GFR 1.53 MG/DL (0.55-1.30); GLOMERULAR FILTRATION RATE 34.6 (>32); POTASSIUM SERUM 4.1 MEQ/L (3.5-5.1)
[2019-05-21] MEDS: OCUVITE 1 TAB PO SCH ×2 (07:53→20:25)
[2019-05-21] MEDS: ASPIRIN 81 MG ENTERIC TAB PO SCH (07:53)
[2019-05-21] MEDS: VITAMIN D 1,000 INTERNATIONAL UNITS TABLET PO SCH (07:54)
[2019-05-21] MEDS: CALCITRIOL 0.25 MCG CAP (S0169) PO SCH (07:54)
[2019-05-21] MEDS: ACETAMINOPHEN 650MG ER TAB (TYLENOL ARTHRITIS) PO SCH ×2 (07:54→20:25)
[2019-05-21] MEDS: CYANOCOBALAMIN 500 MCG TAB PO SCH (07:54)
[2019-05-21] MEDS: FERROUS GLUCONATE 324 MG TAB PO SCH ×2 (07:54→20:25)
[2019-05-21] MEDS: PANTOPRAZOLE 40MG TAB (PROTONIX) PO SCH ×2 (07:54→20:25)
[2019-05-21] MEDS: OMEGA-3 1000MG CAPSULE PO SCH ×2 (07:54→20:25)
[2019-05-21] MEDS: BRINZOLAMIDE 1 % OPHTH SUSP (AZOPT) 10ML OU SCH ×2 (07:55→20:27)
[2019-05-21] MEDS: HumaLOG INSULIN (NovoLOG) PER UNIT SC SCH ×4 (07:56→20:27)
[2019-05-21] MEDS: ADVAIR HFA 230/21MCG INHALER INH SCH ×2 (08:32→20:00)
[2019-05-21] MEDS ORDERED: PPD DOCUMENTATION ENTRY MISC XX ONE (15:00)
[2019-05-21] MEDS: RIVAROXABAN 15 MG TAB (XARELTO) PO SCH (17:25)
[2019-05-21] MEDS: LATANOPROST 0.005% OPHTH SOLN 2.5 ML OU SCH (20:25)
[2019-05-22] MEDS: ONDANSETRON 4 MG TAB (S0181) PO SCH ×2 (00:11→06:36)
[2019-05-22 06:00] VITALS: BP 130/61
[2019-05-22] MEDS: ADVAIR HFA 230/21MCG INHALER INH SCH (07:42)
[2019-05-22] MEDS: ASPIRIN 81 MG ENTERIC TAB PO SCH (08:09)
[2019-05-22] MEDS: ACETAMINOPHEN 650MG ER TAB (TYLENOL ARTHRITIS) PO SCH (08:09)
[2019-05-22] MEDS: HumaLOG INSULIN (NovoLOG) PER UNIT SC SCH (08:09)
[2019-05-22] MEDS: FERROUS GLUCONATE 324 MG TAB PO SCH (08:10)
[2019-05-22] MEDS: CYANOCOBALAMIN 500 MCG TAB PO SCH (08:10)
[2019-05-22] MEDS: CALCITRIOL 0.25 MCG CAP (S0169) PO SCH (08:10)
[2019-05-22] MEDS: OCUVITE 1 TAB PO SCH (08:10)
[2019-05-22] MEDS: PANTOPRAZOLE 40MG TAB (PROTONIX) PO SCH (08:10)
[2019-05-22] MEDS: OMEGA-3 1000MG CAPSULE PO SCH (08:10)
[2019-05-22] MEDS: VITAMIN D 1,000 INTERNATIONAL UNITS TABLET PO SCH (08:10)
[2019-05-22] MEDS: BRINZOLAMIDE 1 % OPHTH SUSP (AZOPT) 10ML OU SCH (08:11)
[2019-05-22] MEDS ORDERED: ONDA4TAB5 PO ×2 (08:49→10:41)
[2019-05-22] MEDS ORDERED: ADV500INH INH (10:41)
[2019-05-22] MEDS ORDERED: ALLO100T PO (10:41)
[2019-05-22] MEDS ORDERED: OCUVTAB4 PO (10:41)
[2019-05-22] MEDS ORDERED: XARE15TA PO (10:41)
[2019-05-22] MEDS ORDERED: TORS20TA2 PO (10:41)
[2019-05-22] MEDS ORDERED: AZOP0.2S OU (10:41)
[2019-05-22] MEDS ORDERED: PANT-23 PO (10:41)
[2019-05-22] MEDS ORDERED: INSULANT SC (10:41)
[2019-05-22] MEDS ORDERED: POTA1TAB14 PO (10:41)
[2019-05-22] MEDS ORDERED: OMEG100011 PO (10:41)
[2019-05-22] MEDS ORDERED: NITR4TASL SL (10:41)
[2019-05-22] MEDS ORDERED: TORS10TA3 PO (10:41)
[2019-05-22] MEDS ORDERED: VITA100066 PO (10:41)
[2019-05-22] MEDS ORDERED: ASPI1TAB15 PO (10:41)
[2019-05-22] MEDS ORDERED: TYLE650T35 PO (10:41)
[2019-05-22] MEDS ORDERED: ROCA0.25 PO (10:41)
[2019-05-22] MEDS ORDERED: FERR32TA PO (10:41)
[2019-05-22] MEDS ORDERED: SPIR-10 PO (10:41)
[2019-05-22] MEDS ORDERED: PROAAER10 INH (10:41)
[2019-05-22] MEDS ORDERED: BIMA01SOL OU (10:41)
[2019-05-22] MEDS ORDERED: VITA500T41 PO (10:41)
--- NOTE | 2019-05-22 11:31 | DS.PDOC ---
Discharge Summary General Date of Admission May 12, 2019 at 14:20 Date of Discharge 05/22/19 Primary Care Physician: KATHIA WORLEY DO Attending Physician: JOSH CEJA MD Discharge Summary PROCEDURES PERFORMED DURING STAY: None. ADMITTING/DISCHARGE DIAGNOSES: 1. Weakness 2. Nausea and vomiting 3. Urinary tract infection 4. Acute kidney injury 5. Diabetes mellitus 6. Sick sinus syndrome 7. Deep vein thrombosis. 8. Coronary artery disease. 9. Glaucoma and macular degeneration. 10. Hypertension 11. Iron deficiency anemia. 12. Recent GI bleed. 13. Vitamin D and B12 deficiencies COMPLICATIONS/CHIEF COMPLAINT: Nausea, vomiting, weakness HISTORY OF PRESENT ILLNESS/HOSPITAL COURSE: Patient is an 84-year-old female who presented to the emergency room on 05/12/2019 for increased weakness as well as nausea and vomiting. For the past 2 weeks prior to admission she had been dry heaving most mornings and did have a few episodes of vomiting. Patient is interested in being moved into an assisted living facility and has she is beginning to be unable to care for herself. Patient was recently admitted in the hospital from 04/09/2019 through 04/23/2019 for a small bowel obstruction and a GI bleed. Patient also developed a an acute DVT and had an IVC filter placed. In the emergency room, patient was found to have an abnormal urinary analysis and was admitted into the hospital for treatment for a urinary tract infection. Patient was placed on IV ceftriaxone and was later she has addition to oral cefdinir for 5 days of treatment. Patient worked with the discharge planners in order to be placed at [facility]. Throughout the patient's hospitalization, she continued to improve work with physical therapy and was able to meet the qualifications for assisted living. We optimized the patient's nausea with Zofran and simethicone. Patient was doing much better and initially was made ALC status until she was accepted at [facility]. Patient was accepted on 05/22/2019 and was discharged to [facility] living facility. DISCHARGE MEDICATIONS: Please see below. ALLERGIES: Please see below. PHYSICAL EXAMINATION ON DISCHARGE: Vitals: (see below) General: No acute distress, laying comfortably in bed. HEENT: Moist mucous membranes. Neck: No JVD or lymphadenopathy Cardiac: RRR, No murmurs Pulm: Clear to auscultation b/l. No wheezing, rhonchi Abd: NT/ND + BS Ext: No edema or cyanosis LABORATORY DATA: Please see below. IMAGING: A chest x-ray performed on 05/12/2019 showed mild left base platelike atelectasis, pacemaker, otherwise no acute disease. A CT of the abdomen and pelvis without contrast performed on 05/12/2019 showed no obvious acute abdominal pelvic pathology appreciated. Chronic and postsurgical changes including prior colectomy with normal-appearing ileocolonic anastomosis at the sigmoid level. Prior cholecystectomy and hysterectomy. No ascites, focal inflammatory stranding, or adenopathy or free air. PROGNOSIS: Fair ACTIVITY: As tolerated. DIET: Consistent carbohydrates DISCHARGE PLAN/DISPOSITION: Discharge to [facility] DISCHARGE INSTRUCTIONS: 1. Follow-up with primary care provider in 5-10 days. 2. Start Zofran and simethicone as instructed. 3. Return to emergency department if symptoms worsen. DISCHARGE CONDITION: Stable. TIME SPENT ON DISCHARGE: 35 minutes Vital Signs/I&Os Vital Signs Date Time Temp Pulse Resp B/P (MAP) Pulse Ox O2 Delivery O2 Flow Rate FiO2 05/22/19 06:00 97.7 76 18 130/61 (84) 92 I&O- Last 24 Hours up to 6 AM 05/22/19 06:00 Intake Total 1220 ml Output Total 0 ml Balance 1220 ml Laboratory Data Labs 24H Laboratory Tests 2 05/21/19 11:43: Bedside Glucose (Misc Panel) 185H 05/21/19 17:06: Bedside Glucose (Misc Panel) 122H 05/21/19 20:11: Bedside Glucose (Misc Panel) 126H 05/22/19 06:11: Bedside Glucose (Misc Panel) 118H FSBS Laboratory Tests Test 05/21/19 11:43 05/21/19 17:06 05/21/19 20:11 05/22/19 06:11 Range/Units Bedside Glucose (Misc Panel) 185 122 126 118 83-110 MG/DL Microbiology Microbiology 05/12/19 Blood Culture - Final, Complete NO GROWTH AFTER 5 DAYS 05/12/19 Blood Culture - Final, Complete NO GROWTH AFTER 5 DAYS 05/17/19 Stool Occult Blood (ROBLES) - Final, Complete 05/12/19 Urine Culture - Final, Complete Discharge Medications Scheduled Acetaminophen (Tylenol Arthritis) 650 Mg Tablet.er, 650 MG PO BID Allopurinol (Allopurinol) 100 Mg Tab, 100 MG PO DAILY Aspirin (Aspirin EC) 81 Mg Tab, 81 MG PO DAILY Bimatoprost (Lumigan) 50 Drop/2.5 Ml Eleanor, 1 DROP OU QHS Brinzolamide (Azopt) 1 % Taya, 1 DROP OU BID Calcitriol (Rocaltrol) 0.25 Mcg Cap, 0.25 MCG PO DAILY Cholecalciferol (Vitamin D3) (Vitamin D3) 1,000 Unit Tab, 2,000 UNIT PO DAILY Cyanocobalamin (Vitamin B-12) (Vitamin B-12) 500 Mcg Tablet, 500 MCG PO DAILY Ferrous Gluconate (Ferrous Gluconate) 324 Mg Tablet, 324 MG PO BID Insulin Glargine (Lantus) 1 Units/0.01 Ml Susp, 10 UNITS SC QHS [place]-3 Fatty Acids/Fish Oil ([place] 3 1,000 mg Softgel) 1 Cap Cap, 1 CAP PO BID Pantoprazole Sodium (Pantoprazole Sodium) 40 Mg Tablet.dr, 40 MG PO BID Potassium Chloride (Potassium Chloride) 20 Meq Tablet.er, 20 MEQ PO DAILY Rivaroxaban (Xarelto) 15 Mg Tablet, 15 MG PO DAILY Salmeterol/Fluticasone (Advair 500-50 Diskus) 1 Each Blst.w.dev, 1 PUFF INH BID Spironolactone (Spironolactone) 25 Mg Tablet, 12.5 MG PO DAILY Torsemide (Torsemide) 10 Mg Tablet, 10 MG PO DAILY 30MG TOTAL DAILY Torsemide (Torsemide) 20 Mg Tablet, 20 MG PO DAILY 30MG TOTAL DAILY Vit A/Vit C/Vit E/Zinc/Copper (Preservision Areds Tablet) 1 Each Tablet, 1 TAB PO BID Scheduled PRN Albuterol Sulfate (Proair Hfa) 108 Mcg/Act Aer, 2 PUFFS INH Q4H PRN for SHORTNESS OF BREATH Nitroglycerin (Nitrostat) 0.4 Mg Subl, 0.4 MG SL NITRO PRN for CHEST PAIN Ondansetron HCl (Ondansetron HCl) 4 Mg Tablet, 4 MG PO Q6HP PRN for NAUSEA Simethicone (Simethicone) 80 Mg Tab.chew, 80 MG PO Q6HP PRN for GAS PAIN Allergies Coded Allergies: carvedilol (Verified Allergy, Severe, difficulty breathing, 04/09/19) pitavastatin (Verified Allergy, Severe, anaphylaxis, 04/09/19) dexamethasone (Verified Allergy, Intermediate, eyes burn, 04/09/19) dorzolamide (Verified Allergy, Intermediate, eyes burn, 04/09/19) neomycin (Verified Allergy, Intermediate, eyes burn, 04/09/19) polymyxin B (Verified Allergy, Intermediate, eyes burn, 04/09/19) timolol (Verified Allergy, Intermediate, eyes burn, 04/09/19) Penicillins (Verified Allergy, Mild, rash, 04/09/19) Quinolones (Verified Allergy, Mild, rash, 04/09/19) DG Inhibitors (Verified Adverse Reaction, Intermediate, kidney problems / cough, 04/09/19) [place]-Smk-Ecd Reductase Inhibitor (Verified Adverse Reaction, Mild, myalgia, 04/09/19) colesevelam (Verified Adverse Reaction, Mild, myalgia, 04/09/19) ezetimibe (Verified Adverse Reaction, Mild, myalgia, 04/09/19) losartan (Verified Adverse Reaction, Mild, nausea / no appetite, 04/09/19) GME ATTESTATION GME ATTESTATION My faculty preceptor for this patient encounter was physically present during the encounter and was fully available. All aspects of the patient interview, examination, medical decision making process, and medical care plan development were reviewed and approved by the faculty preceptor. The faculty preceptor is aware and concurs with the plan as stated in the body of this note and will attest to such by his/her cosignature. ATTENDING NOTE I, Josh Ceja, have independently examined this patient and performed my own physical exam, as well as reviewed the documentation and edited where necessary. I have discussed in detail with the resident / student the findings and plan of treatment as documented by the resident / student and edited their note. I agree with their findings and treatment plan and have edited their documentation. I will continue to follow the patient during this hospital stay. Time spent on discharge 35 minutes SHE CERON DO May 22, 2019 11:31 JOSH CEJA MD May 22, 2019 15:35
[2019-05-22] MEDS ORDERED: SIME80TA PO (11:33)
== END 2019-05-22 10:50 | DRG 690 ==
LOC: EDBD 07:42 → M ED 07:42 → EEVIPCON 14:20 → M ED INP 14:20 → M MS5PR 17:55
PROVIDERS: ADMIT Internal Medicine; ATTEND Internal Medicine
DX: N39.0 Urinary tract infection, site not specified (principal); N17.9 Acute kidney failure, unspecified; R53.1 Weakness; J44.9 Chronic obstructive pulmonary disease, unspecified; I25.10 Atherosclerotic heart disease of native coronary artery without angina pectoris; I10 Essential (primary) hypertension; E11.9 Type 2 diabetes mellitus without complications; E53.8 Deficiency of other specified B group vitamins; R11.2 Nausea with vomiting, unspecified; Z66 Do not resuscitate; E55.9 Vitamin D deficiency, unspecified; H40.9 Unspecified glaucoma; H35.30 Unspecified macular degeneration; M10.9 Gout, unspecified; D50.9 Iron deficiency anemia, unspecified; Z95.5 Presence of coronary angioplasty implant and graft; Z95.0 Presence of cardiac pacemaker; Z90.49 Acquired absence of other specified parts of digestive tract; Z98.41 Cataract extraction status, right eye; Z98.42 Cataract extraction status, left eye; Z95.828 Presence of other vascular implants and grafts; Z87.891 Personal history of nicotine dependence; Z79.82 Long term (current) use of aspirin; Z79.4 Long term (current) use of insulin; Z79.899 Other long term (current) drug therapy; Z79.01 Long term (current) use of anticoagulants; Z88.0 Allergy status to penicillin; Z88.1 Allergy status to other antibiotic agents; Z88.8 Allergy status to other drugs, medicaments and biological substances

== ENCOUNTER 2019-07-25 12:27 | Observation (INO) | payer MEDICARE ==
[~2019-07-25] VITALS: Ht 167.6 cm; Wt 76.6 kg
[~2019-07-25 12:27] MED LIST changes: +ALBU83IN INH; +ALLO10TA PO; +ASPI81TA26 PO; -AZIT500T2 PO; +AZIT500T5 PO; +CALC1CAP31 PO; +D-20TAB PO; +DOXY100T PO; +FLUC10TA PO; +OMEGCAP4 PO; +ONDA4TAB5 PO; +PANT-23 PO; +POTA20TA6 PO; +PRES10CA2 PO; +SIME80TA PO; +TYLE650T38 PO; +VITA500T41 PO
[2019-07-25] MEDS ORDERED: NS 1,000 ML IV ONE ×2 (13:00→13:45)
[2019-07-25 13:06] LABS: VENOUS BASE EXCESS -1.4 (-2.0-2.0); VENOUS HCO3 23.8 MEQ/L (23.0-27.0); VENOUS O2 SATURATION 79.3 % (60.0-80.0); VENOUS PARTIAL PRESSURE CO2 42.2 mmHg (38.0-50.0); VENOUS PARTIAL PRESSURE O2 47.1 mmHg (30.0-50.0); VENOUS STANDARD HCO3 22.9 MEQ/L; VENOUS TOTAL CO2 25.1 MEQ/L (24.0-28.0)
[2019-07-25 13:08] LABS: BASO % 0.1 % (0.0-1.0); HEMATOCRIT 34.7 % (36.0-47.0); HEMOGLOBIN 11.2 g/dl (12.0-15.5); LYMPH # 0.5 10^3/uL (1.5-5.0); LYMPH % 3.6 % (24.0-44.0); MEAN CORPUSCULAR HEMOGLOBIN 30.1 pg (27.0-33.0); MEAN CORPUSCULAR HGB CONC 32.3 g/dl (32.0-36.5); MEAN CORPUSCULAR VOLUME 93.3 fl (80.0-96.0); MONO # 0.3 10^3/uL (0.0-0.8); MONO % 2.1 % (0.0-5.0); NEUTROPHILS # 12.7 10^3/uL (1.5-8.5); NEUTROPHILS % 93.3 % (36.0-66.0); PLATELET COUNT, AUTOMATED 231 10^3/uL (150-450); RED BLOOD COUNT 3.72 10^6/uL (4.00-5.40); WHITE BLOOD COUNT 13.6 10^3/uL (4.0-10.0)
[2019-07-25] MEDS ORDERED: PRED10TA2 PO ×2 (13:22)
[2019-07-25 13:33] LABS: HEMOGLOBIN A1c 9.2 %
[2019-07-25] MEDS ORDERED: HumaLOG INSULIN (NovoLOG) PER UNIT SC STA (13:42)
[2019-07-25 13:46] LABS: ACETONE/KETONE 10.22 MG/DL (<2.81); CK-MB VALUE MASS < 1.0 NG/ML (<3.6); CPK CREATINE PHOSPHOKINASE 24 U/L (26-192); MAGNESIUM LEVEL 1.7 MG/DL (1.8-2.4); MB/CK RELATIVE INDEX 4.17 (< OR =4); TROPONIN I < 0.02 NG/ML (< 0.10)
--- NOTE | 2019-07-25 13:49 | REP ---
Chest x-ray: Single view. History: Diabetic ketoacidosis. Comparison chest x-ray: 11 July 2019. Findings: The 11 July 2019 study showed an infiltrate below the minor fissure in the right middle lobe. This is improved. There is some fissural thickening. Right hemidiaphragm is somewhat elevated unchanged. Mild bibasilar interstitial fibrosis pattern is seen. There is a bipolar pacemaker in the right heart via the left side. The heart is not enlarged. Aorta is calcific. Impression: Some residual fissural thickening. Previously noted right middle lobe infiltrate is radiographically resolved. Mild bibasilar interstitial findings. No acute infiltrate seen. Pacemaker in place. Electronically Signed by Barry Rodrigez MD 07/25/2019 03:44 P
[2019-07-25] MEDS ORDERED: MAG SULF 1GM/100ML (MAG RUN) 1 GM in IV 1 EA IV ONE ×2 (14:00→15:00)
[2019-07-25] MEDS ORDERED: POTASSIUM CHLORIDE 10 MEQ SR TABLET PO ONE ×2 (14:00→15:30)
[2019-07-25] MEDS ORDERED: KCL 10MEQ/100ML SWI (KRUN) 10 MEQ in IV 1 EA IV ONE ×2 (14:00→15:00)
[2019-07-25] MEDS ORDERED: NS 1,000 ML IV SCH (15:30)
[2019-07-25] MEDS ORDERED: LEVEMIR (INSULIN DETEMIR) 1 UNITS/0.01ML SC ONE (15:30)
[2019-07-25] MEDS ORDERED: DEXTROSE 50% 50 ML SYRINGE IV PRN (15:30)
[2019-07-25] MEDS ORDERED: GLUCOSE 4 GM CHEW TABLET PO PRN (15:30)
[2019-07-25] MEDS ORDERED: GLUCAGON FOR INJ 1 MG VIAL (J1610) SC PRN (15:30)
--- NOTE | 2019-07-25 15:49 | HPEPDOC ---
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 , GERD, Glaucoma and Macular degeneration, H/O SBO due to adhesions , H/O Upper GI bleed presented to the ED for progressive weakness over the last 24 hours. The patient was recently admitted to the hospital because of pneumonia. The patient was discharged but as per her, she was not prescribed any insulin on discharge. The patient said that she has been having polyuria going to the bathroom to urinate a lot of times. Was feeling extremely dehydrated and extremely weak to the point that she c ouldn't even get up. She came to the ER and was found to have blood sugars in 700s. The patient denies any burning in micturition. Denies any cough, any abdominal pain. Beta hydroxybutyrate was elevated, but an ion gap was 13. The patient has an A1c of 9.6. She was given 10 units of insulin in the ER and started on bolus fluids of total of 2 L. The patient will also given magnesium and potassium supplementation. 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 GERD Glaucoma and Macular degeneration H/O SBO due to adhesions H/O Upper GI bleed Surgical History IVC filter placement on 04/18/19 subtotal colectomy sometime around 1999. hysterectomy. Cholecystectomy. Appendectomy. Multiple breast biopsies. Cataract surgery bilaterally. History of an RCA stent in 2004. Family History: No pertinent family hx Social History she is a former smoker. Denies alcohol or drug abuse. Review of Systems: Pertinent positive findings as per HPI. Rest negative PHYSICAL EXAMINATION: General: The patient is awake, alert, oriented x3, sitting up in the bed in no apparent distress. Head and Neck Exam: Extraocular muscles intact. Pupils equally round and reactive to light. Mucous membranes are moist. Neck is supple. There is no jugular venous distention (JVD). Cardiovascular: S1 and S2, regular rate. Trace edema of the bilateral lower extremities. Respiratory: Mild inspiratory crackles at the right base, mildly decreased breath sounds at the left side. Abdomen: Soft. Positive bowel sounds. Nontender. No organomegaly. Genitourinary: Indwelling Gentile catheter was noted. Musculoskeletal: Left lower extremity swollen than the right lower extremity because of chronic DVT. No pitting edema Central Nervous System (ARTS ADMINISTRATOR OR MANAGER): No focal deficit. Power is 5/5 in all extremities. Assessment/Plan 84-year-old female comes to the hospital because of hyperglycemia in 600s without DKA and currently being admitted for electrolyte imbalance. Hyperglycemia and dehydration. 1: Uncontrolled blood sugars. Apparently the patient was discharged without any insulin. She has an A1c of 9.2. The patient states that she used to take Lantus 8 units at night and pre-meal insulin. Currently, the patient's sugars aren't 500. We will continue the patient on sliding scale insulin and give additional 10 units of Lantus. We will continue monitoring glucose every 2 hours. I repeat BMP in 6 hours to see if there is any opening of a 9. Venous pH will be drawn as well. Continue hydration with 100 mL of normal saline. Magnesium and potassium supplementation and repeat assessment. We will Wait 24-hour requirement and according to the body weight decide about her insulin. 2. COPD: will continue symbicort and albuterol 3. CAD with remote history of PCI: continue ASA and started 4: Gout continue allopurinol 5. GUY on CKD stage 3 : Due to excessive diuresis because of hyperglycemia. Continue hydration with 100 mL of normal saline. Hold diuretics. The patient's baseline creatinine is around 1.1, currently 1.7. Avoid any nephrotoxic drugs. Input output monitoring. 6. DVTs both right and left has IVC filter in place continue xarelto. 7. Diastolic CHF : currently looks dry . will hold diuretics and give hydration. Patient will be admitted as inpatient with expected length of stay greater than to midnight Vital Signs Vital Signs Date Time Temp Pulse Resp B/P (MAP) Pulse Ox O2 Delivery O2 Flow Rate FiO2 07/25/19 15:16 135/86 (102) 07/25/19 15:12 117 95 07/25/19 12:42 96.8 18 Room Air Laboratory Data Labs 24H Laboratory Tests 2 07/25/19 12:53: Immature Granulocyte % (Auto) 0.9, Neutrophils (%) (Auto) 93.3H, Lymphocytes (%) (Auto) 3.6L, Monocytes (%) (Auto) 2.1, Eosinophils (%) (Auto) 0.0, Basophils (%) (Auto) 0.1, Neutrophils # (Auto) 12.7H, Lymphocytes # (Auto) 0.5L, Monocytes # (Auto) 0.3, Eosinophils # (Auto) 0.0, Basophils # (Auto) 0.0, Nucleated Red Blood Cells % (auto) 0.0, Blood Gas Bicarbonate Standard 22.9, Venous Blood pH 7.370, Venous Blood Partial Pressure CO2 42.2, Venous Blood Partial Pressure O2 47.1, Venous Blood Total Carbon Dioxide 25.1, Venous Blood HCO3 23.8, Venous Blood Oxygen Saturation 79.3, Venous Blood Base Excess -1.4, Estimated Mean Plasma Glucose 217H, Hemoglobin A1c 9.2, Magnesium Level 1.7L, Total Creatine Kinase 24L, Creatine Kinase MB < 1.0, Creatine Kinase MB Relative Index 4.17H, Troponin I < 0.02, B-Hydroxybutyrate 10.22H 07/25/19 13:01: POC Lactate (Misc Panel) 1.68 07/25/19 13:02: POC Glucose (Misc Panel) 638*H, POC Sodium (Misc Panel) 133L, POC Potassium (Misc Panel) 3.3L, POC Chloride (Misc Panel) 96L, POC Total CO2 (Misc Panel) 24.0, POC Blood Urea Nitrogen (Misc Panel 52H, POC Ionized Calcium (Misc Panel) 4.5, POC Creatinine (Misc Panel) 1.7H, POC Hematocrit (Misc Panel) 36.0L 07/25/19 15:16: 07/25/19 15:22: Bedside Glucose (Misc Panel) 533*H CBC/BMP Laboratory Tests 07/25/19 12:53 Home Medications Scheduled Allopurinol (Allopurinol) 100 Mg Tablet, 100 MG PO DAILY Aspirin (Aspirin EC) 81 Mg Tablet.dr, 81 MG PO DAILY Bimatoprost (Lumigan) 0.01% 2.5ML Drops, 1 DROP OU QHS Brinzolamide (Azopt) 1% 10ML Drops.susp, 1 DROP OU BID Calcitriol (Calcitriol) 0.25 Mcg Capsule, 0.25 MCG PO DAILY Cholecalciferol (Vitamin D3) (Vitamin D3) 2,000 Unit Tablet, 2,000 UNIT PO DAILY Cyanocobalamin (Vitamin B-12) (Vitamin B-12) 500 Mcg Tablet, 500 MCG PO DAILY Ferrous Gluconate (Ferrous Gluconate) 324 Mg Tablet, 324 MG PO DAILY [place]-3/Dha/Epa/Fish Oil ([place]-3 Fish Oil 1,000 mg Sfgl) 1,000 Mg Capsule, 1 CAP PO BID Pantoprazole Sodium (Pantoprazole Sodium) 40 Mg Tablet.dr, 40 MG PO BID Potassium Chloride (Potassium Chloride) 20 Meq Tab.er.prt, 20 MEQ PO DAILY Prednisone (Prednisone) 10 Mg Tablet, 30 MG PO DAILY TAKE ON 07/24/19-07/26/19 Prednisone (Prednisone) 10 Mg Tablet, 20 MG PO DAILY TAKE ON 07/27/19-07/29/19 Rivaroxaban (Xarelto) 15 Mg Tablet, 15 MG PO QPM Salmeterol/Fluticasone (Advair 500-50 Diskus) 1 Each Blst.w.dev, 1 PUFF INH BID Simethicone (Simethicone) 80 Mg Tab.chew, 80 MG PO BID AFTER LUNCH AND DINNER Spironolactone (Spironolactone) 25 Mg Tablet, 12.5 MG PO DAILY Torsemide (Torsemide) 10 Mg Tablet, 10 MG PO DAILY 30MG TOTAL DAILY Torsemide (Torsemide) 20 Mg Tablet, 20 MG PO DAILY 30MG TOTAL DAILY Vit C/E/Zn/Coppr/Lutein/Zeaxan (Preservision Areds 2 Softgel) 1 Each Capsule, 1 EACH PO BID Scheduled PRN Acetaminophen (Tylenol 8 Hour) 650 Mg Tablet.er, 650 MG PO Q8H PRN for PAIN Albuterol Sulf (Albuterol Sulfate) 2.5 Mg/3 Ml Vial.neb, 2.5 MG INH QID PRN for SHORTNESS OF BREATH Albuterol Sulfate (Proair Hfa) 8.5 Gm Hfa.aer.ad, 2 PUFF INH Q4H PRN for SHORTNESS OF BREATH Nitroglycerin (Nitrostat) 0.4 Mg Tab.subl, 0.4 MG SL Q5MP PRN for CHEST PAIN Ondansetron HCl (Ondansetron HCl) 4 Mg Tablet, 4 MG PO Q6H PRN for NAUSEA Prednisone (Prednisone) 10 Mg Tablet, 10 MG PO for DAILY TAKE ON 07/30/19-08/01/19 Allergies Coded Allergies: carvedilol (Verified Allergy, Severe, difficulty breathing, 04/09/19) pitavastatin (Verified Allergy, Severe, anaphylaxis, 04/09/19) Penicillins (Verified Allergy, Intermediate, rash, 07/25/19) Quinolones (Verified Allergy, Intermediate, rash, 07/25/19) dexamethasone (Verified Allergy, Intermediate, eyes burn, 04/09/19) dorzolamide (Verified Allergy, Intermediate, eyes burn, 04/09/19) neomycin (Verified Allergy, Intermediate, eyes burn, 04/09/19) polymyxin B (Verified Allergy, Intermediate, eyes burn, 04/09/19) timolol (Verified Allergy, Intermediate, eyes burn, 04/09/19) DG Inhibitors (Verified Adverse Reaction, Intermediate, kidney problems / cough, 04/09/19) Hxnlexw-Fqs-Exr Reductase Inhibitor (Verified Adverse Reaction, Mild, myalgia, 04/09/19) colesevelam (Verified Adverse Reaction, Mild, myalgia, 04/09/19) ezetimibe (Verified Adverse Reaction, Mild, myalgia, 04/09/19) losartan (Verified Adverse Reaction, Mild, nausea / no appetite, 04/09/19) A-FIB/CHADSVASC A-FIB History Current/History of A-Fib/PAF?: No CEFERINO KIM MD Jul 25, 2019 15:49
[2019-07-25] MEDS ORDERED: ACETAMINOPHEN 650MG ER TAB (TYLENOL ARTHRITIS) PO PRN (16:00)
[2019-07-25] MEDS ORDERED: ONDANSETRON 4 MG TAB (S0181) PO PRN (16:00)
[2019-07-25] MEDS: RIVAROXABAN 15 MG TAB (XARELTO) PO SCH (17:27)
[2019-07-25 17:35] LABS: VENOUS BASE EXCESS -2.6 (-2.0-2.0); VENOUS HCO3 23.3 MEQ/L (23.0-27.0); VENOUS O2 SATURATION 64.5 % (60.0-80.0); VENOUS PARTIAL PRESSURE CO2 44.4 mmHg (38.0-50.0); VENOUS PARTIAL PRESSURE O2 38.4 mmHg (30.0-50.0); VENOUS PH 7.337 UNITS (7.330-7.430); VENOUS STANDARD HCO3 21.7 MEQ/L; VENOUS TOTAL CO2 24.6 MEQ/L (24.0-28.0)
[2019-07-25 18:17] LABS: ALBUMIN 2.7 GM/DL (3.2-5.2); BILIRUBIN,TOTAL 0.5 MG/DL (0.2-1.0); CALCIUM LEVEL 8.1 MG/DL (8.8-10.2); CREATININE FOR GFR 1.7 MG/DL (0.55-1.30); GLOMERULAR FILTRATION RATE 30.6 (>32); POTASSIUM SERUM 4.2 MEQ/L (3.5-5.1); TOTAL PROTEIN 5.9 GM/DL (6.4-8.2)
[2019-07-25] MEDS: HumaLOG INSULIN (NovoLOG) PER UNIT SC SCH ×3 (18:38→22:23)
[2019-07-25 21:00] VITALS: BP 124/57
[2019-07-25] MEDS: BRINZOLAMIDE 1 % OPHTH SUSP (AZOPT) 10ML OU SCH (21:00)
[2019-07-25] MEDS: PANTOPRAZOLE 40MG TAB (PROTONIX) PO SCH (21:04)
[2019-07-25 23:10] LABS: VENOUS BASE EXCESS -3.8 (-2.0-2.0); VENOUS HCO3 22.3 MEQ/L (23.0-27.0); VENOUS O2 SATURATION 62.2 % (60.0-80.0); VENOUS PARTIAL PRESSURE CO2 44.6 mmHg (38.0-50.0); VENOUS PARTIAL PRESSURE O2 36.7 mmHg (30.0-50.0); VENOUS PH 7.317 UNITS (7.330-7.430); VENOUS STANDARD HCO3 20.7 MEQ/L; VENOUS TOTAL CO2 23.7 MEQ/L (24.0-28.0)
--- NOTE | 2019-07-25 23:46 | ECGEPIP ---
[facility] - ED Test Date: 2019-07-25 Pat Name: SILVIA BAER Department: Room: - Gender: Female Facility Examiner: TC : [id number] Requested By: LASHA SANTANA Order Number: [id number] Reading MD: Zack Vazquez Measurements Intervals [place] Rate: 70 P: -33 ME: 140 QRS: -50 QRSD: 145 T: 65 QT: 447 QTc: 484 Interpretive Statements ELECTRONIC ATRIAL PACEMAKER RIGHT BUNDLE BRANCH BLOCK LEFT ANTERIOR FASCICULAR BLOCK LEFT VENTRICULAR HYPERTROPHY AND ST-T CHANGE Electronically Signed on 07-25-2019 23:46:34 EST by Zack Vazquez
[2019-07-25 23:57] LABS: CALCIUM LEVEL 7.9 MG/DL (8.8-10.2); CREATININE FOR GFR 1.64 MG/DL (0.55-1.30); GLOMERULAR FILTRATION RATE 31.9 (>32); POTASSIUM SERUM 4.5 MEQ/L (3.5-5.1)
[2019-07-26] MEDS: HumaLOG INSULIN (NovoLOG) PER UNIT SC SCH ×3 (00:04→21:10)
[2019-07-26] MEDS ORDERED: DEXTROSE 50% 50 ML SYRINGE IV STA (02:28)
[2019-07-26] MEDS ORDERED: D5W/0.45% SODIUM CHLORIDE 1,000 ML IV SCH (02:30)
[2019-07-26 02:44] LABS: ACETONE/KETONE 1.15 MG/DL (<2.81)
[2019-07-26 02:47] LABS: VENOUS BASE EXCESS -4.1 (-2.0-2.0); VENOUS O2 SATURATION 72.2 % (60.0-80.0); VENOUS PARTIAL PRESSURE CO2 38.8 mmHg (38.0-50.0); VENOUS PARTIAL PRESSURE O2 41.4 mmHg (30.0-50.0); VENOUS PH 7.352 UNITS (7.330-7.430); VENOUS STANDARD HCO3 20.6 MEQ/L; VENOUS TOTAL CO2 22.2 MEQ/L (24.0-28.0)
[2019-07-26] MEDS ORDERED: HumaLOG INSULIN (NovoLOG) PER UNIT SC SCH ×2 (04:00→05:00)
--- NOTE | 2019-07-26 04:41 | IPNPDOC ---
Text Note Date of Service The patient was seen on 07/26/19. NOTE NIGHT FLOAT NOTE Noted to be hypoglycemic overnight, into 30s, otherwise stable. After dietary intervention, gradually increased into the 50s. Amp of D50 given, normal saline fluid switched over to d5-half NS. Her short-acting insulin sliding scale & fs have been readjusted to prevent further hypoglycemic episodes. Upon recheck, her beta hydroxybutyrate has normalized, as well as her mild acidosis on VBG No electrolyte abnormalities. GUY improving. Reassess morning sugars, and consider stopping IV fluids and re-instituting long-acting insulin. VS,Fishbone, I+O VS, Fishbone, I+O Laboratory Tests 07/25/19 12:53 07/25/19 17:21 07/25/19 22:53 Vital Signs Date Time Temp Pulse Resp B/P (MAP) Pulse Ox O2 Delivery O2 Flow Rate FiO2 07/25/19 21:00 97.3 69 20 124/57 (79) 99 Room Air I&O- Last 24 Hours up to 6 AM 07/26/19 06:00 Intake Total 2442 ml Output Total 800 ml Balance 1642 ml GME ATTESTATION GME ATTESTATION My faculty preceptor for this patient encounter was physically present during the encounter and was fully available. All aspects of the patient interview, examination, medical decision making process, and medical care plan development were reviewed and approved by the faculty preceptor. The faculty preceptor is aware and concurs with the plan as stated in the body of this note and will attest to such by his/her cosignature. TIKA JADE DO Jul 26, 2019 04:41
[2019-07-26 05:43] LABS: HEMATOCRIT 30.5 % (36.0-47.0); HEMOGLOBIN 9.9 g/dl (12.0-15.5); MEAN CORPUSCULAR HEMOGLOBIN 30.6 pg (27.0-33.0); MEAN CORPUSCULAR HGB CONC 32.5 g/dl (32.0-36.5); MEAN CORPUSCULAR VOLUME 94.1 fl (80.0-96.0); PLATELET COUNT, AUTOMATED 198 10^3/uL (150-450); RED BLOOD COUNT 3.24 10^6/uL (4.00-5.40); WHITE BLOOD COUNT 13.6 10^3/uL (4.0-10.0)
[2019-07-26 05:49] LABS: CALCIUM LEVEL 8.2 MG/DL (8.8-10.2); CREATININE FOR GFR 1.48 MG/DL (0.55-1.30); GLOMERULAR FILTRATION RATE 35.9 (>32); POTASSIUM SERUM 4.3 MEQ/L (3.5-5.1)
[2019-07-26 06:00] VITALS: BP 124/55
[2019-07-26] MEDS: ADVAIR HFA 230/21MCG INHALER INH SCH ×2 (08:00→16:59)
[2019-07-26] MEDS: FERROUS GLUCONATE 324 MG TAB PO SCH (09:53)
[2019-07-26] MEDS: allopurinoL 100 MG TAB PO SCH (09:53)
[2019-07-26] MEDS: BRINZOLAMIDE 1 % OPHTH SUSP (AZOPT) 10ML OU SCH ×2 (09:53→21:11)
[2019-07-26] MEDS: CYANOCOBALAMIN 500 MCG TAB PO SCH (09:53)
[2019-07-26] MEDS: PANTOPRAZOLE 40MG TAB (PROTONIX) PO SCH ×2 (09:53→21:10)
[2019-07-26] MEDS: ASPIRIN 81 MG ENTERIC TAB PO SCH (09:53)
--- NOTE | 2019-07-26 10:00 | IPNPDOC ---
Date Seen The patient was seen on 07/26/19. Progress Note SUBJECTIVE: Patient was seen at bedside this morning. She reported improvement in her symptoms since last night. She had no further episodes of hypoglycemia. She did explain that since her admission, she had yet to receive her Advair as well as eyedrops for glaucoma. When asked how her lower extremities were, she claims they felt "tight" however, this is normal for her and she explains that h er left leg is consistently more swollen than the right due to a known DVT in her left side. She denied any dizziness, altered mental status, nausea, vomiting, diaphoresis, chills, fevers, racing heart rate, palpitations, or difficulty urinating or moving her bowels. OBJECTIVE PHYSICAL EXAMINATION: VITAL SIGNS: Please see below. GENERAL: Patient is pleasant and cooperative, sitting up comfortably in bed, alert and oriented in no acute distress HEENT: Normocephalic, atraumatic. No scleral icterus. PERRLA. EOMI. no nasal discharge.. Mucous membranes appear more hydrated compared to yesterday. No tracheal deviation. No obvious swollen lymph nodes CARDIOVASCULAR: Regular rate and rhythm. Normal S1 and S2. No murmurs, gallops or rubs noted RESPIRATORY: Symmetric chest wall movement. Mild crackles heard bilaterally as well as expiratory wheezes heard throughout. ABDOMINAL:. No obvious lesions noted. Normal bowel sounds in all 4 quadrants. Slight pain to palpation of upper quadrants b/l. Negative sargent sign. EXTREMITIES:. 2/4 pulses noted throughout. Left leg considerably more swollen than the right. 1+ pitting edema bilaterally. No erythema or pain upon palpation NEUROLOGICAL: A&O x3. CNII-XII intact. 5/5 strength b/l. Spontaneous movements of all extremities. No focal deficits noted PSYCHOLOGICAL: Mood and affect were appropriate LABORATORY DATA, MICROBIOLOGY: Please see below. Imagin07/25/2019 CXR: Some residual fissural thickening previously noted right middle lobe infiltrate is radiographically resolved. Mild bibasilar interstitial findings. No acute infiltrate seen. Pacemaker in place. 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 PROBLEMS: #Hyperosmolar Hyperglycemia -Fasting blood glucose this morning at 128 -Continuing to monitor blood glucose every hour -Beta hydroxybutyrate resolved to 1.15 from 10.22 this morning -Discontinuing patient's short acting insulin -Switching to Levemir twice a day #Episode of Hypoglycemia -Patient currently on IV D50 -POC glucose have been stable around 135 -Continue to monitor #COPD -Patient doesn't complain of any shortness of breath -Patient will be continued on Advair -Continue on Symbicort and albuterol #Glaucoma -Patient doesn't complain of any glaucomatous symptoms -Continue patients brinzolamide and bimatoprost eyedrops #CAD with remote history of stenting -Continue ASA #Gout -Continue allopurinol #GUY on CKD Stage 3 -Patient's creatinine downtrending this morning at 1.48 from 1.64 (baseline creatinine around 1.1) -Currently holding diuretics -Continuing fluid hydration #Chronic DVTs b/l -Known DVTs bilaterally. Patient has IVC filter in place -Continue Xarelto #Diastolic CHF -1+ pitting edema noted bilaterally -No signs of overt fluid overload -Continue fluids due to patient's hyper osmolar hyperglycemia on admission DISPOSITION: Pending patient's clinical improvement VS, I&O, 24H, Josie Vital Signs/I&O Vital Signs Date Time Temp Pulse Resp B/P (MAP) Pulse Ox O2 Delivery O2 Flow Rate FiO2 07/26/19 06:00 96.9 70 20 124/55 (78) 97 Room Air I&O- Last 24 Hours up to 6 AM 07/26/19 06:00 Intake Total 2678 ml Output Total 1300 ml Balance 1378 ml Laboratory Data 24H LABS Laboratory Tests 2 07/25/19 12:41: Bedside Glucose (Misc Panel) > 600*H 07/25/19 12:53: Immature Granulocyte % (Auto) 0.9, Neutrophils (%) (Auto) 93.3H, Lymphocytes (%) (Auto) 3.6L, Monocytes (%) (Auto) 2.1, Eosinophils (%) (Auto) 0.0, Basophils (%) (Auto) 0.1, Neutrophils # (Auto) 12.7H, Lymphocytes # (Auto) 0.5L, Monocytes # (Auto) 0.3, Eosinophils # (Auto) 0.0, Basophils # (Auto) 0.0, Nucleated Red Blood Cells % (auto) 0.0, Blood Gas Bicarbonate Standard 22.9, Venous Blood pH 7.370, Venous Blood Partial Pressure CO2 42.2, Venous Blood Partial Pressure O2 47.1, Venous Blood Total Carbon Dioxide 25.1, Venous Blood HCO3 23.8, Venous Blood Oxygen Saturation 79.3, Venous Blood Base Excess -1.4, Estimated Mean Plasma Glucose 217H, Hemoglobin A1c 9.2, Magnesium Level 1.7L, Total Creatine Kinase 24L, Creatine Kinase MB < 1.0, Creatine Kinase MB Relative Index 4.17H, Troponin I < 0.02, B-Hydroxybutyrate 10.22H 07/25/19 13:01: POC Lactate (Misc Panel) 1.68 07/25/19 13:02: POC Glucose (Misc Panel) 638*H, POC Sodium (Misc Panel) 133L, POC Potassium (Misc Panel) 3.3L, POC Chloride (Misc Panel) 96L, POC Total CO2 (Misc Panel) 24.0, POC Blood Urea Nitrogen (Misc Panel 52H, POC Ionized Calcium (Misc Panel) 4.5, POC Creatinine (Misc Panel) 1.7H, POC Hematocrit (Misc Panel) 36.0L 07/25/19 13:39: Bedside Glucose (Misc Panel) > 600*H 07/25/19 15:16: Urine Color STRAW, Urine Appearance HAZY, Urine pH 6.0, Urine Specific Petal 1.006, Urine Protein NEGATIVE, Urine Glucose (UA) 3+H, Urine Ketones NEGATIVE, Urine Blood 1+H, Urine Nitrite NEGATIVE, Urine Bilirubin NEGATIVE, Urine Urobilinogen 0.2, Urine Leukocyte Esterase 3+H, Urine WBC (Auto) 132H, Urine RBC (Auto) 8H, Urine Hyaline Casts (Auto) 0, Urine Bacteria (Auto) NEGATIVE, Urine Squamous Epithelial Cells 0, Urine Yeast-Like Cells (Auto) SMALLH, Urine Sperm (Auto) 07/25/19 15:22: Bedside Glucose (Misc Panel) 533*H 07/25/19 17:03: Bedside Glucose (Misc Panel) 465H 07/25/19 17:21: Blood Gas Bicarbonate Standard 21.7, Venous Blood pH 7.337, Venous Blood Partial Pressure CO2 44.4, Venous Blood Partial Pressure O2 38.4, Venous Blood Total Carbon Dioxide 24.6, Venous Blood HCO3 23.3, Venous Blood Oxygen Saturation 64.5, Venous Blood Base Excess -2.6L, Anion Gap 9, Glomerular Filtration Rate 30.6L, Calcium Level 8.1L, Total Bilirubin 0.5, Aspartate Amino Transf (AST/SGOT) 4L, Alanine Aminotransferase (ALT/SGPT) 23, Alkaline Phosphatase 89, Total Protein 5.9L, Albumin 2.7L, Albumin/Globulin Ratio 0.84L 07/25/19 18:31: Bedside Glucose (Misc Panel) 413H 07/25/19 20:36: Bedside Glucose (Misc Panel) 372H 07/25/19 22:03: Bedside Glucose (Misc Panel) 279H 07/25/19 22:53: Blood Gas Bicarbonate Standard 20.7, Venous Blood pH 7.317L, Venous Blood Partial Pressure CO2 44.6, Venous Blood Partial Pressure O2 36.7, Venous Blood Total Carbon Dioxide 23.7L, Venous Blood HCO3 22.3L, Venous Blood Oxygen Saturation 62.2, Venous Blood Base Excess -3.8L, Anion Gap 10, Glomerular Filtration Rate 31.9L, Calcium Level 7.9L 07/26/19 01:48: Bedside Glucose (Misc Panel) 37*L 07/26/19 01:51: Bedside Glucose (Misc Panel) 40L 07/26/19 02:01: Bedside Glucose Confirm (Misc) 43, B-Hydroxybutyrate 1.15 07/26/19 02:18: Bedside Glucose (Misc Panel) 45L 07/26/19 02:19: Bedside Glucose (Misc Panel) 55L 07/26/19 02:36: Blood Gas Bicarbonate Standard 20.6, Venous Blood pH 7.352, Venous Blood Partial Pressure CO2 38.8, Venous Blood Partial Pressure O2 41.4, Venous Blood Total Ca rbon Dioxide 22.2L, Venous Blood HCO3 21.0L, Venous Blood Oxygen Saturation 72.2, Venous Blood Base Excess -4.1L 07/26/19 02:38: Bedside Glucose (Misc Panel) 55L 07/26/19 02:39: Bedside Glucose (Misc Panel) 59L 07/26/19 02:45: Bedside Glucose (Misc Panel) 58L 07/26/19 02:47: Bedside Glucose (Misc Panel) 54L 07/26/19 03:15: Bedside Glucose (Misc Panel) 135H 07/26/19 04:03: Bedside Glucose (Misc Panel) 132H 07/26/19 05:15: Nucleated Red Blood Cells % (auto) 0.0, Anion Gap 8, Glomerular Filtration Rate 35.9, Calcium Level 8.2L CBC/BMP Laboratory Tests 07/25/19 12:53 07/25/19 17:21 07/25/19 22:53 07/26/19 05:15 Microbiology Microbiology 07/25/19 Urine Culture, Received Pending GME ATTESTATION GME ATTESTATION My faculty preceptor for this patient encounter was physically present during the encounter and was fully available. All aspects of the patient interview, examination, medical decision making process, and medical care plan development were reviewed and approved by the faculty preceptor. The faculty preceptor is aware and concurs with the plan as stated in the body of this note and will attest to such by his/her cosignature. ATTENDING NOTE Patient was seen and examined by me this morning with the residents. Agree with the above assessment and plan HERSON EVANGELISTA-3 Jul 26, 2019 09:57 CEFERINO KIM MD Jul 26, 2019 14:23
[2019-07-26 11:47] LABS: CALCIUM LEVEL 8.4 MG/DL (8.8-10.2); CREATININE FOR GFR 1.52 MG/DL (0.55-1.30); GLOMERULAR FILTRATION RATE 34.9 (>32); POTASSIUM SERUM 4.6 MEQ/L (3.5-5.1)
[2019-07-26] MEDS: SIMETHICONE 80 MG CHEW TAB PO SCH ×2 (13:19→17:52)
[2019-07-26 17:27] LABS: CALCIUM LEVEL 8.3 MG/DL (8.8-10.2); CREATININE FOR GFR 1.53 MG/DL (0.55-1.30); GLOMERULAR FILTRATION RATE 34.6 (>32); POTASSIUM SERUM 4.5 MEQ/L (3.5-5.1)
[2019-07-26] MEDS: RIVAROXABAN 15 MG TAB (XARELTO) PO SCH (17:52)
[2019-07-26 20:49] VITALS: BP 104/46
[2019-07-26] MEDS ORDERED: LEVEMIR (INSULIN DETEMIR) 1 UNITS/0.01ML SC SCH (21:00)
[2019-07-27 06:33] VITALS: BP 131/56
[2019-07-27] MEDS: ADVAIR HFA 230/21MCG INHALER INH SCH ×2 (07:31→20:28)
[2019-07-27 07:39] LABS: MEAN CORPUSCULAR HEMOGLOBIN 30.1 pg (27.0-33.0); MEAN CORPUSCULAR HGB CONC 32.3 g/dl (32.0-36.5); MEAN CORPUSCULAR VOLUME 93.4 fl (80.0-96.0); PLATELET COUNT, AUTOMATED 194 10^3/uL (150-450); RED BLOOD COUNT 3.32 10^6/uL (4.00-5.40); WHITE BLOOD COUNT 13.2 10^3/uL (4.0-10.0)
[2019-07-27 07:55] LABS: CALCIUM LEVEL 8.4 MG/DL (8.8-10.2); CREATININE FOR GFR 1.32 MG/DL (0.55-1.30); POTASSIUM SERUM 4.2 MEQ/L (3.5-5.1)
[2019-07-27] MEDS: FERROUS GLUCONATE 324 MG TAB PO SCH (08:25)
[2019-07-27] MEDS: ASPIRIN 81 MG ENTERIC TAB PO SCH (08:25)
[2019-07-27] MEDS: CYANOCOBALAMIN 500 MCG TAB PO SCH (08:25)
[2019-07-27] MEDS: allopurinoL 100 MG TAB PO SCH (08:25)
[2019-07-27] MEDS: PANTOPRAZOLE 40MG TAB (PROTONIX) PO SCH ×2 (08:25→21:04)
[2019-07-27] MEDS: LEVEMIR (INSULIN DETEMIR) 1 UNITS/0.01ML SC SCH ×2 (08:26→21:05)
[2019-07-27] MEDS: HumaLOG INSULIN (NovoLOG) PER UNIT SC SCH ×4 (08:26→21:05)
[2019-07-27] MEDS: BRINZOLAMIDE 1 % OPHTH SUSP (AZOPT) 10ML OU SCH ×2 (08:27→21:05)
[2019-07-27] MEDS ORDERED: INSUDET SC (10:15)
--- NOTE | 2019-07-27 11:18 | DS.PDOC ---
Discharge Summary General Date of Admission Jul 25, 2019 at 15:49 Date of Discharge Jul 27, 2019 Attending Physician: CEFERINO KIM MD Discharge Summary PROCEDURES PERFORMED DURING STAY: [None]. ADMITTING DIAGNOSES: 1. Hyperglycemia w/ dehydration 2. COPD 3. CAD 4. Gout 5. GUY on CKD stage 3 6. Chronic DVTs b/l 7. Diastolic CHF DISCHARGE DIAGNOSES: 1. Hyperosmolar Hyperglycemia -resolved 2. COPD 3. CAD 4. Gout 5. GUY on CKD stage 3 6. Chronic DVTs b/l 7. Diastolic CHF COMPLICATIONS/CHIEF COMPLAINT: Acute Hyperglycemia. HISTORY OF PRESENT ILLNESS: 84 year old female with PMH of COPD , CKD 3, Diabetes mellitus to, right leg DVT and left leg DVT chronic, IVC filter placeme nt , CAD s/p stents in the remote past 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 , GERD, Glaucoma and Macular degeneration, H/O SBO due to adhesions , H/O Upper GI bleed presented to the ED for progressive weakness over the last 24 hours. The patient was recently admitted to the hospital because of pneumonia. The patient was discharged but as per her, she was not prescribed any insulin on discharge. The patient said that she has been having polyuria going to the bathroom to urinate a lot of times. Was feeling extremely dehydrated and extremely weak to the point that she couldn't even get up. She came to the ER and was found to have blood sugars in 700s. The patient denies any burning in micturition. Denies any cough, any abdominal pain. Beta hydroxybutyrate was elevated, but an ion gap was 13. The patient has an A1c of 9.6. She was given 10 units of insulin in the ER and started on bolus fluids of total of 2 L. The patient will also given magnesium and potassium supplementation. HOSPITAL COURSE: Patient was admitted to the hospital for hyperosmolar hyperglycemic episode. Hyperglycemia was corrected. She was discharged on 4 units of Levemir twice a day for better glucose control. She was evaluated by PT home safety eval prior to discharge. DISCHARGE MEDICATIONS: Please see below. ALLERGIES: Please see below. PHYSICAL EXAMINATION ON DISCHARGE: VITAL SIGNS: Please see below. GENERAL: Patient is pleasant and cooperative, sitting up comfortably in bed, alert and oriented in no acute distress Skin: multiple ecchymoses noted on patient's upper extremities. HEENT: Normocephalic, atraumatic. No scleral icterus. PERRLA. EOMI. no nasal discharge.. Mucous membranes appear more hydrated compared to yesterday. No tracheal deviation. No obvious swollen lymph nodes CARDIOVASCULAR: Regular rate and rhythm. Normal S1 and S2. No murmurs, gallops or rubs noted RESPIRATORY: Symmetric chest wall movement. Clear lung sounds throughout. ABDOMINAL:. No obvious lesions noted. Normal bowel sounds in all 4 quadrants. no pain to palpation, guarding or rigidity. EXTREMITIES:. 2/4 pulses noted throughout. Left leg considerably more swollen than the right. 1+ pitting edema bilaterally. No erythema or pain upon palpation NEUROLOGICAL: A&O x3. CNII-XII intact. 5/5 strength b/l. Spontaneous movements of all extremities. No focal deficits noted PSYCHOLOGICAL: Mood and affect were appropriate LABORATORY DATA: Please see below. IMAGIN07/25/2019 CXR: Some residual fissural thickening previously noted right middle lobe infiltrate is radiographically resolved. Mild bibasilar interstitial findings. No acute infiltrate seen. Pacemaker in place. PROGNOSIS: good ACTIVITY: [As tolerated]. DIET: Low sodium Consistent carbohydrate DISCHARGE PLAN: -Continue medications as prescribed -F/u with provider -Should be evaluated by PT/OT for deconditioning -Contact provider or return if symptoms return DISPOSITION: DISCHARGE CONDITION: [Stable]. TIME SPENT ON DISCHARGE: Greater than 30 minutes. Vital Signs/I&Os Vital Signs Date Time Temp Pulse Resp B/P (MAP) Pulse Ox O2 Delivery O2 Flow Rate FiO2 07/27/19 06:33 97.6 74 19 131/56 (81) 97 Room Air I&O- Last 24 Hours up to 6 AM 07/27/19 06:00 Intake Total 1350 ml Output Total 200 ml Balance 1150 ml Laboratory Data Labs 24H Laboratory Tests 2 07/26/19 11:24: Bedside Glucose (Misc Panel) 230H 07/26/19 16:34: Bedside Glucose (Misc Panel) 359H 07/26/19 16:46: Anion Gap 8, Glomerular Filtration Rate 34.6, Calcium Level 8.3L 07/26/19 20:47: Bedside Glucose (Misc Panel) 352H 07/26/19 23:53: Bedside Glucose (Misc Panel) 226H 07/27/19 07:09: Nucleated Red Blood Cells % (auto) 0.0, Anion Gap 7L, Glomerular Filtration Rate 41.0, Calcium Level 8.4L CBC/BMP Laboratory Tests 07/26/19 16:46 07/27/19 07:09 FSBS Laboratory Tests Test 07/26/19 11:24 07/26/19 16:34 07/26/19 20:47 07/26/19 23:53 Range/Units Bedside Glucose (Misc Panel) 230 359 352 226 83-110 MG/DL Microbiology Microbiology 07/25/19 Urine Culture - Final, Complete Discharge Medications Scheduled Allopurinol (Allopurinol) 100 Mg Tablet, 100 MG PO DAILY, (Reported) Aspirin (Aspirin EC) 81 Mg Tablet.dr, 81 MG PO DAILY, (Reported) Bimatoprost (Lumigan) 0.01% 2.5ML Drops, 1 DROP OU QHS, (Reported) Brinzolamide (Azopt) 1% 10ML Drops.susp, 1 DROP OU BID, (Reported) Calcitriol (Calcitriol) 0.25 Mcg Capsule, 0.25 MCG PO DAILY, (Reported) Cholecalciferol (Vitamin D3) (Vitamin D3) 2,000 Unit Tablet, 2,000 UNIT PO DA CLARIBEL, (Reported) Cyanocobalamin (Vitamin B-12) (Vitamin B-12) 500 Mcg Tablet, 500 MCG PO DAILY, (Reported) Ferrous Gluconate (Ferrous Gluconate) 324 Mg Tablet, 324 MG PO DAILY, (Reported) Insulin Detemir (Levemir) 100 Unit/1 Ml Vial, 4 UNITS SC BID [place]quette-3/Dha/Epa/Fish Oil ([place]quette-3 Fish Oil 1,000 mg Sfgl) 1,000 Mg Capsule, 1 CAP PO BID, (Reported) Pantoprazole Sodium (Pantoprazole Sodium) 40 Mg Tablet.dr, 40 MG PO BID, (Reported) Potassium Chloride (Potassium Chloride) 20 Meq Tab.er.prt, 20 MEQ PO DAILY, (Reported) Rivaroxaban (Xarelto) 15 Mg Tablet, 15 MG PO QPM, (Reported) Salmeterol/Fluticasone (Advair 500-50 Diskus) 1 Each Blst.w.dev, 1 PUFF INH BID, (Reported) Simethicone (Simethicone) 80 Mg Tab.chew, 80 MG PO BID, (Reported) AFTER LUNCH AND DINNER Spironolactone (Spironolactone) 25 Mg Tablet, 12.5 MG PO DAILY, (Reported) Torsemide (Torsemide) 10 Mg Tablet, 10 MG PO DAILY, (Reported) 30MG TOTAL DAILY Torsemide (Torsemide) 20 Mg Tablet, 20 MG PO DAILY, (Reported) 30MG TOTAL DAILY Vit C/E/Zn/Coppr/Lutein/Zeaxan (Preservision Areds 2 Softgel) 1 Each Capsule, 1 EACH PO BID, (Reported) Scheduled PRN Acetaminophen (Tylenol 8 Hour) 650 Mg Tablet.er, 650 MG PO Q8H PRN for PAIN, (Reported) Albuterol Sulf (Albuterol Sulfate) 2.5 Mg/3 Ml Vial.neb, 2.5 MG INH QID PRN for SHORTNESS OF BREATH, (Reported) Albuterol Sulfate (Proair Hfa) 8.5 Gm Hfa.aer.ad, 2 PUFF INH Q4H PRN for SHORTNESS OF BREATH, (Reported) Nitroglycerin (Nitrostat) 0.4 Mg Tab.subl, 0.4 MG SL Q5MP PRN for CHEST PAIN, (Reported) Ondansetron HCl (Ondansetron HCl) 4 Mg Tablet, 4 MG PO Q6H PRN for NAUSEA, (Reported) Allergies Coded Allergies: carvedilol (Verified Allergy, Severe, difficulty breathing, 04/09/19) pitavastatin (Verified Allergy, Severe, anaphylaxis, 04/09/19) Penicillins (Verified Allergy, Intermediate, rash, 07/25/19) Quinolones (Verified Allergy, Intermediate, rash, 07/25/19) dexamethasone (Verified Allergy, Intermediate, eyes burn, 04/09/19) dorzolamide (Verified Allergy, Intermediate, eyes burn, 04/09/19) neomycin (Verified Allergy, Intermediate, eyes burn, 04/09/19) polymyxin B (Verified Allergy, Intermediate, eyes burn, 04/09/19) timolol (Verified Allergy, Intermediate, eyes burn, 04/09/19) DG Inhibitors (Verified Adverse Reaction, Intermediate, kidney problems / cough, 04/09/19) Vimshid-Hnu-Cwg Reductase Inhibitor (Verified Adverse Reaction, Mild, myalgia, 04/09/19) colesevelam (Verified Adverse Reaction, Mild, myalgia, 04/09/19) ezetimibe (Verified Adverse Reaction, Mild, myalgia, 04/09/19) losartan (Verified Adverse Reaction, Mild, nausea / no appetite, 04/09/19) GME ATTESTATION GME ATTESTATION My faculty preceptor for this patient encounter was physically present during the encounter and was fully available. All aspects of the patient interview, examination, medical decision making process, and medical care plan development were reviewed and approved by the faculty preceptor. The faculty preceptor is aware and concurs with the plan as stated in the body of this note and will attest to such by his/her cosignature. ATTENDING NOTE Patient was seen and examined by me this morning with the residents. Agree with the above assessment and plan HERSON EVANGELISTA-3 Jul 27, 2019 11:18 CEFERINO KIM MD Jul 28, 2019 08:17
[2019-07-27] MEDS: SIMETHICONE 80 MG CHEW TAB PO SCH ×2 (11:57→18:19)
[2019-07-27 14:00] VITALS: BP 125/57
[2019-07-27] MEDS: RIVAROXABAN 15 MG TAB (XARELTO) PO SCH (18:19)
[2019-07-27 22:00] VITALS: BP 130/55
[2019-07-28 06:06] LABS: HEMATOCRIT 28.4 % (36.0-47.0); HEMOGLOBIN 9.3 g/dl (12.0-15.5); MEAN CORPUSCULAR HEMOGLOBIN 30.5 pg (27.0-33.0); MEAN CORPUSCULAR HGB CONC 32.7 g/dl (32.0-36.5); MEAN CORPUSCULAR VOLUME 93.1 fl (80.0-96.0); PLATELET COUNT, AUTOMATED 157 10^3/uL (150-450); RED BLOOD COUNT 3.05 10^6/uL (4.00-5.40); WHITE BLOOD COUNT 11.2 10^3/uL (4.0-10.0)
[2019-07-28 06:12] VITALS: BP 128/56
[2019-07-28 06:34] LABS: CALCIUM LEVEL 8.8 MG/DL (8.8-10.2); CREATININE FOR GFR 1.22 MG/DL (0.55-1.30); GLOMERULAR FILTRATION RATE 44.9 (>32); POTASSIUM SERUM 3.9 MEQ/L (3.5-5.1)
[2019-07-28] MEDS: HumaLOG INSULIN (NovoLOG) PER UNIT SC SCH ×2 (07:58→12:38)
[2019-07-28] MEDS: FERROUS GLUCONATE 324 MG TAB PO SCH (08:00)
[2019-07-28] MEDS: ASPIRIN 81 MG ENTERIC TAB PO SCH (08:00)
[2019-07-28] MEDS: PANTOPRAZOLE 40MG TAB (PROTONIX) PO SCH (08:00)
[2019-07-28] MEDS: LEVEMIR (INSULIN DETEMIR) 1 UNITS/0.01ML SC SCH (08:01)
[2019-07-28] MEDS: BRINZOLAMIDE 1 % OPHTH SUSP (AZOPT) 10ML OU SCH (08:01)
[2019-07-28] MEDS: CYANOCOBALAMIN 500 MCG TAB PO SCH (08:01)
[2019-07-28] MEDS: allopurinoL 100 MG TAB PO SCH (08:01)
[2019-07-28] MEDS: ADVAIR HFA 230/21MCG INHALER INH SCH (08:39)
--- NOTE | 2019-07-28 10:49 | IPNPDOC ---
Date Seen The patient was seen on 07/28/19. Progress Note Discharge was held yesterday due to PT safety. Patient was reevaluated today and was cleared. She is safe for discharge today and recommendation were home with services. She will go to [facility] with assisted living. VS, I&O, 24H, Fishbone Vital Signs/I&O Vital Signs Date Time Temp Pulse Resp B/P (MAP) Pulse Ox O2 Delivery O2 Flow Rate FiO2 07/28/19 06:12 99.3 71 16 128/56 (80) 96 Room Air I&O- Last 24 Hours up to 6 AM 07/28/19 06:00 Intake Total 1310 ml Output Total 1200 ml Balance 110 ml Laboratory Data 24H LABS Laboratory Tests 2 07/27/19 11:15: Bedside Glucose (Misc Panel) 275H 07/28/19 00:13: Bedside Glucose (Misc Panel) 204H 07/28/19 05:42: Nucleated Red Blood Cells % (auto) 0.0, Anion Gap 7L, Glomerular Filtration Rate 44.9, Calcium Level 8.8 CBC/BMP Laboratory Tests 07/28/19 05:42 Microbiology Microbiology 07/25/19 Urine Culture - Final, Complete GME ATTESTATION GME ATTESTATION My faculty preceptor for this patient encounter was physically present during the encounter and was fully available. All aspects of the patient interview, examination, medical decision making process, and medical care plan development were reviewed and approved by the faculty preceptor. The faculty preceptor is aware and concurs with the plan as stated in the body of this note and will attest to such by his/her cosignature. ATTENDING NOTE Patient was seen and examined by me this morning with the residents. Agree with the above assessment and plan LINO BIRD DO Jul 28, 2019 10:49 CEFERINO KIM MD Jul 28, 2019 15:39
[2019-07-28] MEDS: SIMETHICONE 80 MG CHEW TAB PO SCH (12:37)
== END 2019-07-28 13:00 ==
LOC: EDBD 12:27 → M ED 12:27 → M ED INP 12:28 → INTOOBSV 15:49 → M ED INP 15:49 → UNDOADMOB 15:49 → M ED INP 20:22 → M MS5PR 20:22 → UNDOADMOB 07-26 13:29 → M ED INP 07-26 13:29 → UNDODISOB 07-28 13:00
PROVIDERS: ADMIT Internal Medicine; ATTEND Internal Medicine
DX: E11.00 Type 2 diabetes mellitus with hyperosmolarity without nonketotic hyperglycemic-hyperosmolar coma (NKHHC) (principal); J44.9 Chronic obstructive pulmonary disease, unspecified; I25.10 Atherosclerotic heart disease of native coronary artery without angina pectoris; M10.9 Gout, unspecified; N17.9 Acute kidney failure, unspecified; N18.3 Chronic kidney disease, stage 3 (moderate); I50.30 Unspecified diastolic (congestive) heart failure; K21.9 Gastro-esophageal reflux disease without esophagitis; Z95.0 Presence of cardiac pacemaker; Z79.82 Long term (current) use of aspirin; Z79.899 Other long term (current) drug therapy; Z88.0 Allergy status to penicillin; Z88.8 Allergy status to other drugs, medicaments and biological substances; Z87.891 Personal history of nicotine dependence
CPT/HCPCS: 36415; 71045; 80047; 80048; 80053; 81001; 82010; 82550; 82553; 82803; 82947; 83036; 83605; 83735; 84484; 85025; 85027; 87086; 93005; 93041; 94640; 96360; 96361; 97116; 97161; 97530; 97535; 99285; G0378; J3475

== ENCOUNTER → 2019-08-15 | Outpatient (CLI) | payer MEDICARE ==
[~2019-08-15] MED LIST changes: +INSUDET SC
--- NOTE | 2019-08-15 16:12 | REP ---
CT chest without contrast: History: Solitary pulmonary nodule. Comparison chest CT study April 19, 2019 and May 14, 2018. Remote prior chest CT studies are also reviewed dating back to June 12, 2009. CT findings: Preliminary digital marketing development specialist radiograph demonstrates a bipolar pacemaker in the right heart. There are clips in the upper abdomen bilaterally. An IVC filter is noted in place. Heavy vascular calcification is noted. This patient has an aberrant right subclavian artery. There is a curvilinear pattern of calcification in the right hilus. There is bibasilar linear fibrosis unchanged. The previously noted nodular opacities in the right upper and middle lobe distribution have resolved. The nodular opacity in the right upper lobe seen on April 19, 2019 is resolved. There are multiple tiny subcentimeter predominately peripheral nodules which are felt to be unchanged. Previously noted bilateral lower lobe atelectatic changes are resolved. No adrenal lesion is seen. The visualized upper abdominal structures show a large hiatal hernia. No hilar or mediastinal mass or adenopathy is observed. Bone window settings show no bony destructive lesion. Impression: Sliding hiatal hernia. Vascular calcification and aberrant right subclavian artery. Pacemaker. Pulmonary parenchymal opacities seen on April 19, 2019 are resolved consistent with inflammatory changes. There are several tiny stable nodular opacities and there is bibasilar linear fibrosis. Electronically Signed by Barry Rodrigez MD 08/15/2019 05:21 P
== END ==
LOC: M RAD 15:14
PROVIDERS: ATTEND Internal Medicine Pulmonary Disease
DX: R91.1 Solitary pulmonary nodule (principal)

== ENCOUNTER → 2020-03-05 | Outpatient (REF) | payer MEDICARE ==
[~2020-03-05] MED LIST changes: +BISO5TAB14 PO; -BISO5TAB9 PO; -MECL-68 PO; +MECL1TAB31 PO; +ONDA-83 PO; -ONDA4TAB5 PO
[2020-03-05 17:32] LABS: PERCENT SATURATION 14.9 % (13.2-45.0)
== END ==
LOC: M LAB REF 16:06
PROVIDERS: ATTEND Internal Medicine
DX: D50.9 Iron deficiency anemia, unspecified (principal)

== ENCOUNTER 2020-03-27 23:13 | Emergency (ER) | payer MEDICARE ==
[~2020-03-27] VITALS: Ht 165.1 cm; Wt 67.7 kg
[~2020-03-27 23:13] MED LIST changes: +ACET650T61 PO; +ASCO250T20 PO; +ASPI-546 PO; -ASPI1TAB15 PO; +PANT40TA29 PO; -PANT40TA3 PO; -TYLE650T35 PO; -VITA1TAB23 PO
[2020-03-28] MEDS ORDERED: ACETAMINOPHEN 500 MG TAB PO ONE
[2020-03-28] MEDS ORDERED: METOCLOPRAMIDE INJ 10MG/2ML VIAL (J2765 PER 1) IV ONE (00:15)
[2020-03-28] MEDS ORDERED: NS 500 ML IV ONE (00:15)
[2020-03-28] MEDS ORDERED: ACET-897 PO (00:45)
[2020-03-28] MEDS ORDERED: MACR100C43 PO (00:45)
[2020-03-28] MEDS ORDERED: QC A650T3 PO (01:03)
[2020-03-28] MEDS ORDERED: OMEP-221 PO (01:03)
[2020-03-28] MEDS ORDERED: VITA200016 PO (01:03)
[2020-03-28 01:19] LABS: EOS % 0.2 % (0.0-3.0); HEMATOCRIT 31.7 % (36.0-47.0); HEMOGLOBIN 10.1 g/dl (12.0-15.5); LYMPH # 0.1 10^3/uL (1.5-5.0); LYMPH % 1.1 % (24.0-44.0); MEAN CORPUSCULAR HEMOGLOBIN 29.5 pg (27.0-33.0); MEAN CORPUSCULAR HGB CONC 31.9 g/dl (32.0-36.5); MEAN CORPUSCULAR VOLUME 92.7 fl (80.0-96.0); MONO # 0.2 10^3/uL (0.0-0.8); MONO % 1.7 % (0.0-5.0); NEUTROPHILS # 9.7 10^3/uL (1.5-8.5); NEUTROPHILS % 96.5 % (36.0-66.0); PLATELET COUNT, AUTOMATED 292 10^3/uL (150-450); RED BLOOD COUNT 3.42 10^6/uL (4.00-5.40); WHITE BLOOD COUNT 10.1 10^3/uL (4.0-10.0)
[2020-03-28] MEDS ORDERED: cefTRIAXone SOD 1 GM in D5W MINI-BAG PLUS 50 ML IV ONE (01:30)
[2020-03-28 01:36] LABS: ALBUMIN 2.8 GM/DL (3.2-5.2); BILIRUBIN,DIRECT 0.2 MG/DL (0.0-0.2); BILIRUBIN,TOTAL 0.4 MG/DL (0.2-1.0); TOTAL PROTEIN 5.7 GM/DL (6.4-8.2)
[2020-03-28 06:45] VITALS: BP 106/53
--- NOTE | 2020-03-28 07:33 | REP ---
Clinical: Cough. Technique: AP and lateral. Comparison: 07/25/2019. Findings: Mediastinum and cardiac silhouette are stable. Pacemaker in satisfactory position. Lung ernandez demonstrate chronic-appearing interstitial changes and scattered linear scarring. No focal consolidation, effusion, or pneumothorax. Skeletal structures demonstrate osteopenia and degenerative changes. Impression: Chronic changes. No obvious acute process. Electronically Signed by Lars Tiwari MD 03/28/2020 07:25 A
== END 2020-03-28 06:53 | disposition home or self-care (01) ==
LOC: M ED 23:13
DX: N39.0 Urinary tract infection, site not specified (principal); E11.9 Type 2 diabetes mellitus without complications; I25.10 Atherosclerotic heart disease of native coronary artery without angina pectoris; J44.9 Chronic obstructive pulmonary disease, unspecified; K21.9 Gastro-esophageal reflux disease without esophagitis; N28.9 Disorder of kidney and ureter, unspecified; Z86.718 Personal history of other venous thrombosis and embolism; Z95.5 Presence of coronary angioplasty implant and graft; Z79.899 Other long term (current) drug therapy; Z79.82 Long term (current) use of aspirin; Z79.01 Long term (current) use of anticoagulants; Z88.0 Allergy status to penicillin; Z88.1 Allergy status to other antibiotic agents; Z88.8 Allergy status to other drugs, medicaments and biological substances; Z87.891 Personal history of nicotine dependence
CPT/HCPCS: 71046; 80047; 80076; 81001; 83605; 83690; 85025; 87040; 87086; 96361; 96365; 96375; 99285; J0696; J2765

== ENCOUNTER → 2020-04-15 | Outpatient (REF) | payer MEDICARE ==
[~2020-04-15] MED LIST changes: +ACET-897 PO; +MACR100C43 PO; +OMEP-221 PO; +QC A650T3 PO
[2020-06-10 14:11] LABS: HEMATOCRIT 28.8 % (36.0-47.0); HEMOGLOBIN 8.9 g/dl (12.0-15.5); MEAN CORPUSCULAR HEMOGLOBIN 28.5 pg (27.0-33.0); MEAN CORPUSCULAR HGB CONC 30.9 g/dl (32.0-36.5); MEAN CORPUSCULAR VOLUME 92.3 fl (80.0-96.0); PLATELET COUNT, AUTOMATED 409 10^3/uL (150-450); RED BLOOD COUNT 3.12 10^6/uL (4.00-5.40); WHITE BLOOD COUNT 9.4 10^3/uL (4.0-10.0)
[2020-06-10 22:47] LABS: CALCIUM LEVEL 9.2 MG/DL (8.8-10.2); CREATININE FOR GFR 1.37 MG/DL (0.55-1.30); GLOMERULAR FILTRATION RATE 39.2 (>32); HEMOGLOBIN A1c 6.4 %; POTASSIUM SERUM 4.1 MEQ/L (3.5-5.1)
== END ==
PROVIDERS: ATTEND Internal Medicine
DX: E11.9 Type 2 diabetes mellitus without complications (principal); N18.9 Chronic kidney disease, unspecified; I48.91 Unspecified atrial fibrillation; R11.10 Vomiting, unspecified; N39.0 Urinary tract infection, site not specified; J44.1 Chronic obstructive pulmonary disease with (acute) exacerbation

== ENCOUNTER → 2020-04-17 | Outpatient (REF) | payer MEDICARE ==
[2020-06-25 14:24] LABS: APPEARANCE, URINE TURBID (CLEAR); BACTERIA, URINE AUTO 2+ (NEGATIVE); BILIRUBIN, URINE AUTO NEGATIVE (NEGATIVE); BLOOD, URINE BLOOD 1+ (NEGATIVE); COLOR, URINE YELLOW (YELLOW); GLUCOSE, URINE (UA) AUTO NEGATIVE (NEGATIVE); KETONE, URINE AUTO NEGATIVE (NEGATIVE); LEUKOCYTE ESTERASE, URINE AUTO 3+ (NEGATIVE); MUCUS, URINE SMALL (NEGATIVE); NITRITE, URINE AUTO NEGATIVE (NEGATIVE); PROTEIN, URINE AUTO NEGATIVE (NEGATIVE); RBC, URINE AUTO 29 /HPF (0-3); SPECIFIC GRAVITY URINE AUTO 1.011 (1.002-1.035); SQUAMOUS EPITHELIAL CELL UR AU 12 /HPF (0-6); UROBILINOGEN, URINE AUTO 0.2 mg/dL (0.0-2.0); WBC, URINE AUTO TNTC /HPF (0-3)
== END ==
PROVIDERS: ATTEND Internal Medicine
DX: N39.0 Urinary tract infection, site not specified (principal)

== ENCOUNTER 2020-04-18 19:53 | Inpatient (IN) | payer MEDICARE ==
[2020-04-19] MEDS ORDERED: PANTOPRAZOLE 40MG VIAL (C9113 PER 1) As Ordered ONE (08:27)
[2020-04-19] MEDS ORDERED: AZITHROMYCIN INJ 500MG VIAL (J0456 PER 500MG) As Ordered ONE (08:27)
[2020-04-19] MEDS ORDERED: allopurinoL 100 MG TAB As Ordered ONE (08:27)
[2020-04-19] MEDS ORDERED: FERROUS SULFATE 325MG TAB As Ordered ONE (08:27)
[2020-04-19] MEDS ORDERED: HumaLOG INSULIN (NovoLOG) PER UNIT As Ordered ONE (08:29)
[2020-04-19] MEDS ORDERED: ADVAIR HFA 230/21MCG INHALER ONE (10:00)
[2020-04-19] MEDS ORDERED: VITAMIN D 1,000 INTERNATIONAL UNITS TABLET ONE (10:11)
[2020-04-19] MEDS ORDERED: cefTRIAXone SOD 1GM VIAL (J0696 PER 250MG) ONE (10:11)
[2020-04-19] MEDS ORDERED: ACETAMINOPHEN TAB 650MG DOSE (2X325MG) ONE ×2 (10:11→22:15)
[2020-04-19] MEDS ORDERED: MAGNESIUM SULFATE 1GM/100ML D5W BAG (10MG/ML) ONE ×2 (11:23→12:38)
[2020-04-19] MEDS ORDERED: HumaLOG INSULIN (NovoLOG) PER UNIT ONE ×2 (12:02→17:10)
[2020-04-19] MEDS ORDERED: RIVAROXABAN 15 MG TAB (XARELTO) ONE ×2 (12:02→17:10)
[2020-04-19] MEDS ORDERED: BRINZOLAMIDE 1 % OPHTH SUSP (AZOPT) 10ML ONE (21:00)
[2020-04-19] MEDS ORDERED: LATANOPROST 0.005% OPHTH SOLN 2.5 ML ONE (21:00)
[2020-04-19] MEDS ORDERED: FERROUS SULFATE 325MG TAB ONE (22:15)
[2020-04-19] MEDS ORDERED: PANTOPRAZOLE 40MG VIAL (C9113 PER 1) ONE (22:15)
[2020-04-20] MEDS ORDERED: CALCITRIOL 0.25 MCG CAP (S0169) ONE (08:00)
[2020-04-20] MEDS ORDERED: PANTOPRAZOLE 40MG VIAL (C9113 PER 1) ONE ×2 (08:00→20:22)
[2020-04-20] MEDS ORDERED: AZITHROMYCIN INJ 500MG VIAL (J0456 PER 500MG) ONE ×2 (08:00)
[2020-04-20] MEDS ORDERED: VITAMIN D 1,000 INTERNATIONAL UNITS TABLET ONE (08:00)
[2020-04-20] MEDS ORDERED: ACETAMINOPHEN TAB 650MG DOSE (2X325MG) ONE ×2 (08:00→20:22)
[2020-04-20] MEDS ORDERED: HumaLOG INSULIN (NovoLOG) PER UNIT ONE (08:00)
[2020-04-20] MEDS ORDERED: allopurinoL 100 MG TAB ONE (08:00)
[2020-04-20] MEDS ORDERED: FERROUS SULFATE 325MG TAB ONE ×2 (08:00→20:22)
[2020-04-20] MEDS ORDERED: IPRATROPIUM 0.5MG/ALBUTEROL 2.5MG INH SOL UD 3ML (DUONEB) ONE (10:00)
[2020-04-20] MEDS ORDERED: ADVAIR HFA 230/21MCG INHALER ONE (10:00)
[2020-04-20] MEDS ORDERED: cefTRIAXone SOD 1GM VIAL (J0696 PER 250MG) ONE (10:17)
[2020-04-20] MEDS ORDERED: ONDANSETRON 4MG/2ML VIAL ONE (10:17)
[2020-04-20] MEDS ORDERED: RIVAROXABAN 15 MG TAB (XARELTO) ONE (18:02)
[2020-04-21] MEDS ORDERED: AZITHROMYCIN INJ 500MG VIAL (J0456 PER 500MG) ONE ×2 (08:50→08:55)
[2020-04-21] MEDS ORDERED: PANTOPRAZOLE 40MG VIAL (C9113 PER 1) ONE ×3 (08:50→09:38)
[2020-04-21] MEDS ORDERED: RIVAROXABAN 15 MG TAB (XARELTO) ONE ×2 (08:50→09:38)
[2020-04-21] MEDS ORDERED: allopurinoL 100 MG TAB ONE ×2 (08:50→09:38)
[2020-04-21] MEDS ORDERED: VITAMIN D 1,000 INTERNATIONAL UNITS TABLET ONE ×2 (08:50→09:38)
[2020-04-21] MEDS ORDERED: FERROUS SULFATE 325MG TAB ONE ×3 (08:50→09:38)
[2020-04-21] MEDS ORDERED: CALCITRIOL 0.25 MCG CAP (S0169) ONE ×2 (08:50→09:38)
[2020-04-21] MEDS ORDERED: AZITHROMYCIN 250MG TABLET ONE (09:38)
[2020-04-21] MEDS ORDERED: ADVAIR HFA 230/21MCG INHALER ONE (10:00)
[2020-04-21] MEDS ORDERED: cefTRIAXone SOD 1GM VIAL (J0696 PER 250MG) ONE (10:51)
[2020-04-22] MEDS ORDERED: LevoFLOXacin 750MG/150ML IV BAG (J1956 PER 250MG) ONE (08:56)
[2020-04-22] MEDS ORDERED: CEFDINIR 300 MG CAP (OMNICEF) ONE (09:00)
[2020-04-22] MEDS ORDERED: ADVAIR HFA 230/21MCG INHALER ONE (10:00)
[2020-04-22] MEDS ORDERED: OMEGA-3 1000MG CAPSULE ONE (13:00)
[2020-04-22] MEDS ORDERED: PANTOPRAZOLE 40MG VIAL (C9113 PER 1) ONE (22:31)
[2020-04-22] MEDS ORDERED: FERROUS SULFATE 325MG TAB ONE (22:31)
[2020-04-23] MEDS ORDERED: VITAMIN D 1,000 INTERNATIONAL UNITS TABLET ONE (09:58)
[2020-04-23] MEDS ORDERED: PANTOPRAZOLE 40MG VIAL (C9113 PER 1) ONE (09:58)
[2020-04-23] MEDS ORDERED: allopurinoL 100 MG TAB ONE (09:58)
[2020-04-23] MEDS ORDERED: RIVAROXABAN 15 MG TAB (XARELTO) ONE (09:58)
[2020-04-23] MEDS ORDERED: OMEGA-3 1000MG CAPSULE ONE (09:58)
[2020-04-23] MEDS ORDERED: FERROUS SULFATE 325MG TAB ONE (09:58)
[2020-04-23] MEDS ORDERED: AZITHROMYCIN 250MG TABLET ONE (09:58)
[2020-04-23] MEDS ORDERED: CALCITRIOL 0.25 MCG CAP (S0169) ONE (09:58)
[2020-04-23] MEDS ORDERED: ADVAIR HFA 230/21MCG INHALER ONE (10:00)
[2020-04-23] MEDS ORDERED: CEFDINIR 300 MG CAP (OMNICEF) ONE (10:29)
[2020-05-24 16:02] LABS: HEMATOCRIT 22.1 % (36.0-47.0); HEMOGLOBIN 7.1 g/dl (12.0-15.5); MEAN CORPUSCULAR HEMOGLOBIN 29.2 pg (27.0-33.0); MEAN CORPUSCULAR HGB CONC 32.1 g/dl (32.0-36.5); MEAN CORPUSCULAR VOLUME 90.9 fl (80.0-96.0); PLATELET COUNT, AUTOMATED 232 10^3/uL (150-450); RED BLOOD COUNT 2.43 10^6/uL (4.00-5.40); WHITE BLOOD COUNT 9.6 10^3/uL (4.0-10.0)
--- NOTE | 2020-05-28 11:24 | ECGEPIP ---
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
[2020-06-03 01:02] LABS: BASO % 0.2 % (0.0-1.0); EOS % 0.1 % (0.0-3.0); HEMATOCRIT 30.3 % (36.0-47.0); HEMOGLOBIN 9.4 g/dl (12.0-15.5); LYMPH # 0.6 10^3/uL (1.5-5.0); LYMPH % 2.6 % (24.0-44.0); MEAN CORPUSCULAR HEMOGLOBIN 28.8 pg (27.0-33.0); MEAN CORPUSCULAR VOLUME 92.9 fl (80.0-96.0); MONO # 0.8 10^3/uL (0.0-0.8); MONO % 3.5 % (0.0-5.0); NEUTROPHILS # 20.4 10^3/uL (1.5-8.5); NEUTROPHILS % 92.6 % (36.0-66.0); PLATELET COUNT, AUTOMATED 307 10^3/uL (150-450); RED BLOOD COUNT 3.26 10^6/uL (4.00-5.40)
[2020-06-03 01:21] LABS: INR 1.14; PROTHROMBIN TIME 14.9 SECONDS (12.5-14.3)
[2020-06-16 07:55] LABS: APPEARANCE, URINE MANUAL CLOUDY (CLEAR); COLOR, URINE MANUAL YELLOW (YELLOW); HEMATOCRIT 26.1 % (36.0-47.0); HEMOGLOBIN 8.1 g/dl (12.0-15.5); MEAN CORPUSCULAR HEMOGLOBIN 28.8 pg (27.0-33.0); MEAN CORPUSCULAR VOLUME 92.9 fl (80.0-96.0); PLATELET COUNT, AUTOMATED 278 10^3/uL (150-450); RED BLOOD COUNT 2.81 10^6/uL (4.00-5.40); WHITE BLOOD COUNT 18.7 10^3/uL (4.0-10.0)
[2020-06-16 07:56] LABS: BILIRUBIN, URINE MANUAL NEGATIVE (NEGATIVE); BLOOD URINE MANUAL POSITIVE (NEGATIVE); GLUCOSE, URINE (UA) MANUAL NEGATIVE (NEGATIVE); KETONE, URINE MANUAL NEGATIVE (NEGATIVE); LEUKOCYTE ESTERASE, URINE MAN POSITIVE (NEGATIVE); NITRITE, URINE MANUAL NEGATIVE (NEGATIVE); PROTEIN, URINE MANUAL NEGATIVE (NEGATIVE); SPECIFIC GRAVITY,URINE MANUAL 1.012 (1.002-1.035); UROBILINOGEN, URINE MANUAL NORMAL (NORMAL)
[2020-06-16 07:57] LABS: BACTERIA, URINE NONE SEEN; HYALINE CAST, URINE NONE SEEN /lpf (0-1); SQUAMOUS EPITHELIAL CELL URINE NONE SEEN /hpf (SMALL AMT); WBC, URINE 20-30 /hpf (0-3)
[2020-06-16 07:58] LABS: HEMATOCRIT 24.3 % (36.0-47.0); HEMOGLOBIN 7.7 g/dl (12.0-15.5)
[2020-06-16 07:58] LABS: HEMATOCRIT 26.9 % (36.0-47.0); HEMOGLOBIN 8.2 g/dl (12.0-15.5)
[2020-06-16 18:14] LABS: HEMATOCRIT 24.8 % (36.0-47.0); HEMOGLOBIN 7.9 g/dl (12.0-15.5); MEAN CORPUSCULAR HEMOGLOBIN 29.3 pg (27.0-33.0); MEAN CORPUSCULAR HGB CONC 31.9 g/dl (32.0-36.5); MEAN CORPUSCULAR VOLUME 91.9 fl (80.0-96.0); PLATELET COUNT, AUTOMATED 252 10^3/uL (150-450); WHITE BLOOD COUNT 13.3 10^3/uL (4.0-10.0)
[2020-06-30 13:11] LABS: HEMATOCRIT 22.8 % (36.0-47.0); HEMOGLOBIN 7.1 g/dl (12.0-15.5); MEAN CORPUSCULAR HEMOGLOBIN 28.4 pg (27.0-33.0); MEAN CORPUSCULAR HGB CONC 31.1 g/dl (32.0-36.5); MEAN CORPUSCULAR VOLUME 91.2 fl (80.0-96.0); PLATELET COUNT, AUTOMATED 249 10^3/uL (150-450); WHITE BLOOD COUNT 10.5 10^3/uL (4.0-10.0)
[2020-07-01 13:49] LABS: WHITE BLOOD COUNT 10.2 10^3/uL (4.0-10.0)
[2020-07-01 13:50] LABS: HEMOGLOBIN 7.1 g/dl (12.0-15.5); MEAN CORPUSCULAR HEMOGLOBIN 29.5 pg (27.0-33.0); MEAN CORPUSCULAR HGB CONC 32.3 g/dl (32.0-36.5); MEAN CORPUSCULAR VOLUME 91.3 fl (80.0-96.0); PLATELET COUNT, AUTOMATED 238 10^3/uL (150-450); RED BLOOD COUNT 2.41 10^6/uL (4.00-5.40)
[2020-07-07 07:37] LABS: CALCIUM LEVEL 8.4 MG/DL (8.8-10.2); CREATININE FOR GFR 1.64 MG/DL (0.55-1.30); GLOMERULAR FILTRATION RATE 31.9 (>32); POTASSIUM SERUM 4.2 MEQ/L (3.5-5.1)
[2020-07-12 11:26] LABS: ALBUMIN 2.1 GM/DL (3.2-5.2); BILIRUBIN,TOTAL 0.3 MG/DL (0.2-1.0); CALCIUM LEVEL 9.3 MG/DL (8.8-10.2); CREATININE FOR GFR 2.25 MG/DL (0.55-1.30); GLOMERULAR FILTRATION RATE 22.1 (>32); POTASSIUM SERUM 4.8 MEQ/L (3.5-5.1)
[2020-07-14 02:50] LABS: POTASSIUM RANDOM URINE 32.6 MEQ/L
[2020-07-14 02:50] LABS: ALT/SGPT 19 U/L (12-78); BILIRUBIN,DIRECT < 0.1 MG/DL (0.0-0.2); BILIRUBIN,TOTAL 0.3 MG/DL (0.2-1.0); CHOLESTEROL LEVEL 97 MG/DL (<200); CHOLESTEROL RISK RATIO 3.129 (<5); CK-MB VALUE MASS < 1.0 NG/ML (<3.6); CPK CREATINE PHOSPHOKINASE 12 U/L (26-192); HDL CHOLESTEROL 31 MG/DL (>40); LDL CHOLESTEROL 44 MG/DL (<100); MB/CK RELATIVE INDEX 8.33 (< OR =4); NON-HDL-C 66 MG/DL; PHOSPHORUS LEVEL 4.1 MG/DL (2.5-4.9); TOTAL PROTEIN 4.7 GM/DL (6.4-8.2); TRIGLYCERIDES LEVEL 111 MG/DL (<150); TROPONIN I < 0.02 NG/ML (< 0.10)
[2020-07-14 02:50] LABS: CALCIUM LEVEL 8.7 MG/DL (8.8-10.2); CREATININE FOR GFR 2.21 MG/DL (0.55-1.30); GLOMERULAR FILTRATION RATE 22.6 (>32); MAGNESIUM LEVEL 1.2 MG/DL (1.8-2.4); POTASSIUM SERUM 4.6 MEQ/L (3.5-5.1)
[2020-07-14 03:19] LABS: HEMOGLOBIN A1c 6.4 %
[2020-07-14 03:19] LABS: CK-MB VALUE MASS < 1.0 NG/ML (<3.6); CPK CREATINE PHOSPHOKINASE 11 U/L (26-192); MB/CK RELATIVE INDEX 9.09 (< OR =4)
[2020-07-14 10:34] LABS: ALBUMIN 1.8 GM/DL (3.2-5.2); BILIRUBIN,TOTAL 0.1 MG/DL (0.2-1.0); CALCIUM LEVEL 8.6 MG/DL (8.8-10.2); CREATININE FOR GFR 1.86 MG/DL (0.55-1.30); GLOMERULAR FILTRATION RATE 27.5 (>32); POTASSIUM SERUM 4.2 MEQ/L (3.5-5.1); TOTAL PROTEIN 4.4 GM/DL (6.4-8.2)
[2020-07-14 13:15] LABS: CALCIUM LEVEL 8.6 MG/DL (8.8-10.2); CREATININE FOR GFR 1.42 MG/DL (0.55-1.30); GLOMERULAR FILTRATION RATE 37.6 (>32); MAGNESIUM LEVEL 1.6 MG/DL (1.8-2.4); POTASSIUM SERUM 4.3 MEQ/L (3.5-5.1)
== END 2020-04-23 10:30 | DRG 377 ==
LOC: M ED 19:53 → M PCU 04-19 03:55
PROVIDERS: ADMIT Internal Medicine; ATTEND Internal Medicine
DX: K92.2 Gastrointestinal hemorrhage, unspecified (principal); J18.9 Pneumonia, unspecified organism; N17.9 Acute kidney failure, unspecified; I50.32 Chronic diastolic (congestive) heart failure; E11.9 Type 2 diabetes mellitus without complications; R33.9 Retention of urine, unspecified; D72.829 Elevated white blood cell count, unspecified; D63.8 Anemia in other chronic diseases classified elsewhere; R19.7 Diarrhea, unspecified; Z95.0 Presence of cardiac pacemaker; I34.0 Nonrheumatic mitral (valve) insufficiency; Z66 Do not resuscitate; I11.0 Hypertensive heart disease with heart failure; I48.91 Unspecified atrial fibrillation; E83.42 Hypomagnesemia; J44.9 Chronic obstructive pulmonary disease, unspecified

== ENCOUNTER → 2020-04-18 | Outpatient (REF) | payer MEDICARE ==
[2020-06-29 10:38] LABS: HEMATOCRIT 28.2 % (36.0-47.0); HEMOGLOBIN 8.9 g/dl (12.0-15.5); MEAN CORPUSCULAR HGB CONC 31.6 g/dl (32.0-36.5); MEAN CORPUSCULAR VOLUME 91.9 fl (80.0-96.0); PLATELET COUNT, AUTOMATED 329 10^3/uL (150-450); RED BLOOD COUNT 3.07 10^6/uL (4.00-5.40); WHITE BLOOD COUNT 24.6 10^3/uL (4.0-10.0)
[2020-07-13 12:10] LABS: ALBUMIN 2.3 GM/DL (3.2-5.2); BILIRUBIN,TOTAL 0.4 MG/DL (0.2-1.0); CALCIUM LEVEL 9.6 MG/DL (8.8-10.2); CREATININE FOR GFR 1.98 MG/DL (0.55-1.30); GLOMERULAR FILTRATION RATE 25.6 (>32); POTASSIUM SERUM 4.6 MEQ/L (3.5-5.1)
== END ==
PROVIDERS: ATTEND Internal Medicine
DX: R11.10 Vomiting, unspecified (principal); N39.0 Urinary tract infection, site not specified

== ENCOUNTER → 2020-04-26 | Outpatient (REF) | payer MEDICARE ==
--- NOTE | 2020-05-30 09:56 | REP ---
RIGHT TIBIA-FIBULA 3-VIEWS Delay in reporting results from hospital computer system malfunction from malware/ ransomware. REASON FOR EXAM: The study is performed to evaluate for fracture. COMPARISON: None. FINDINGS: There is diffuse demineralization. There is calcified atheroma in the peroneal and posterior tibial arteries. On the lateral view, this superimposes the fibula obscuring visualization of fine bony detail. On the lateral view, there is a questionable tiny step-off of the proximal posterior femoral cortex that might represent a nondisplaced fracture. Correlation with clinical point tenderness is recommended. No displaced fractures are identified. There are no calcifications or foreign bodies. IMPRESSION: Questionable nondisplaced fracture of the proximal fibular shaft. Correlate with clinical point tenderness. Demineralization. Fine bony detail of the fibula is obscured on the lateral view because of superior position of calcified atheroma MTDD
== END ==
LOC: M RAD 10:35 → EDSTATUS 07-01 13:04
PROVIDERS: ATTEND Student in an Organized Health Care Education/Training Program
DX: M79.661 Pain in right lower leg (principal)

== ENCOUNTER → 2020-05-09 | Outpatient (REF) ==
[2020-05-09 16:21] LABS: APPEARANCE, URINE CLOUDY (CLEAR); BACTERIA, URINE AUTO NEGATIVE (NEGATIVE); BILIRUBIN, URINE AUTO NEGATIVE (NEGATIVE); BLOOD, URINE BLOOD NEGATIVE (NEGATIVE); COLOR, URINE YELLOW (YELLOW); GLUCOSE, URINE (UA) AUTO NEGATIVE (NEGATIVE); KETONE, URINE AUTO NEGATIVE (NEGATIVE); LEUKOCYTE ESTERASE, URINE AUTO 3+ (NEGATIVE); NITRITE, URINE AUTO NEGATIVE (NEGATIVE); PROTEIN, URINE AUTO NEGATIVE (NEGATIVE); RBC, URINE AUTO 3 /HPF (0-3); SPECIFIC GRAVITY URINE AUTO 1.005 (1.002-1.035); SQUAMOUS EPITHELIAL CELL UR AU 8 /HPF (0-6); UROBILINOGEN, URINE AUTO 0.2 mg/dL (0.0-2.0); WBC, URINE AUTO 54 /HPF (0-3)
[2020-05-21 09:33] LABS: BASO # 0.1 10^3/uL (0.0-0.2); BASO % 0.7 % (0.0-1.0); EOS # 0.2 10^3/uL (0.0-0.5); EOS % 2.3 % (0.0-3.0); HEMATOCRIT 31.8 % (36.0-47.0); LYMPH # 2.3 10^3/uL (1.5-5.0); LYMPH % 24.9 % (24.0-44.0); MEAN CORPUSCULAR HEMOGLOBIN 28.5 pg (27.0-33.0); MEAN CORPUSCULAR HGB CONC 31.4 g/dl (32.0-36.5); MEAN CORPUSCULAR VOLUME 90.6 fl (80.0-96.0); MONO # 0.7 10^3/uL (0.0-0.8); MONO % 7.6 % (0.0-5.0); NEUTROPHILS # 5.9 10^3/uL (1.5-8.5); NEUTROPHILS % 64.2 % (36.0-66.0); PLATELET COUNT, AUTOMATED 399 10^3/uL (150-450); RED BLOOD COUNT 3.51 10^6/uL (4.00-5.40); WHITE BLOOD COUNT 9.2 10^3/uL (4.0-10.0)
[2020-05-21 10:46] LABS: ALBUMIN 2.8 GM/DL (3.2-5.2); CALCIUM LEVEL 10.2 MG/DL (8.8-10.2); CREATININE FOR GFR 1.58 MG/DL (0.55-1.30); GLOMERULAR FILTRATION RATE 33.2 (>32); MAGNESIUM LEVEL 1.7 MG/DL (1.8-2.4); PHOSPHORUS LEVEL 4.3 MG/DL (2.5-4.9); POTASSIUM SERUM 3.9 MEQ/L (3.5-5.1); PTH INTACT 12.2 PG/ML (18.5-88.0); URIC ACID 8.9 MG/DL (2.6-6.0)
== END ==
PROVIDERS: ATTEND Internal Medicine
DX: N18.9 Chronic kidney disease, unspecified (principal)

== ENCOUNTER → 2020-05-17 | Outpatient (REF) | payer MEDICARE | PROVIDERS: ATTEND Internal Medicine | DX: Z11.59 Encounter for screening for other viral diseases (principal) ==

== ENCOUNTER → 2020-05-27 | Outpatient (CLI) | payer MEDICARE ==
--- NOTE | 2020-06-07 07:36 | REP ---
CT CHEST WITHOUT IV CONTRAST HISTORY: Follow up lung densities. COMPARISON: 08/15/2019 and 04/19/2019. TECHNIQUE: CT chest performed without IV contrast. Sagittal and coronal reconstruction images are performed. FINDINGS: In the right upper lobe on image 24 there is a 3 mm nodular opacity, on image 29 posteriorly there is a subpleural 3 mm nodular opacity, both of which are stable compared to prior studies. In the right lower lobe on image 53 there is a 4 mm nodular opacity posteriorly, which is unchanged. There are diffuse pleural and parenchymal fibrotic changes, which appear similar to the prior study. Small bulla is seen in the inferior aspect of the right upper lobe. Multiple new ill-defined nodular opacities are seen throughout the left lower lobe. These measure up to about 1.5 cm in diameter. Given their very ill-defined appearance and diffuse distribution throughout the left lower lobe, I suspect these represent inflammatory opacities. There is some very mild hazy opacity in the right middle lobe, which is new. This also probably represents a small area of infiltrate. Otherwise, no significant change is seen in the lung ernandez. I see no significant axillary or mediastinal adenopathy. Aberrant right subclavian artery is again noted. There is moderate atherosclerotic plaque of the thoracic aorta and in its branches. There is no aneurysm. The heart is not enlarged. There is no pleural or pericardial effusion. There is a moderate-sized hiatal hernia. The patient has had a prior cholecystectomy. There are degenerative changes of the spine. IMPRESSION: There are diffuse chronic changes as discussed above. New mild ill- defined parenchymal opacity in the right middle lobe probably represents mild hazy infiltrate. Multiple diffuse ill-defined nodular parenchymal opacities throughout the left lower lobe are likely inflammatory in nature. Recommend followup CT in three months. MTDD
== END ==
LOC: M RAD 10:47
PROVIDERS: ATTEND Internal Medicine Pulmonary Disease
DX: R91.8 Other nonspecific abnormal finding of lung field (principal)

== ENCOUNTER → 2020-06-03 | Outpatient (REF) | payer MEDICARE ==
[2020-06-03 17:37] LABS: PERCENT SATURATION 18.8 % (13.2-45.0)
== END ==
LOC: M LAB REF 16:38
PROVIDERS: ATTEND Internal Medicine
DX: D50.9 Iron deficiency anemia, unspecified (principal)

== ENCOUNTER → 2020-08-12 | Outpatient (REF) | payer MEDICARE ==
[~2020-08-12] MED LIST changes: +SIME80CH5 PO; -SIME80TA PO
[2020-08-12 10:16] LABS: BASO % 0.4 % (0.0-1.0); EOS # 0.2 10^3/uL (0.0-0.5); HEMATOCRIT 31.8 % (36.0-47.0); LYMPH # 2.2 10^3/uL (1.5-5.0); LYMPH % 24.3 % (24.0-44.0); MEAN CORPUSCULAR HEMOGLOBIN 28.8 pg (27.0-33.0); MEAN CORPUSCULAR HGB CONC 31.4 g/dl (32.0-36.5); MEAN CORPUSCULAR VOLUME 91.6 fl (80.0-96.0); MONO # 0.5 10^3/uL (0.0-0.8); NEUTROPHILS # 6.3 10^3/uL (1.5-8.5); NEUTROPHILS % 68.1 % (36.0-66.0); PLATELET COUNT, AUTOMATED 334 10^3/uL (150-450); RED BLOOD COUNT 3.47 10^6/uL (4.00-5.40); WHITE BLOOD COUNT 9.2 10^3/uL (4.0-10.0)
[2020-08-12 10:52] LABS: ALBUMIN 2.6 GM/DL (3.2-5.2); CALCIUM LEVEL 8.6 MG/DL (8.8-10.2); CREATININE FOR GFR 1.46 MG/DL (0.55-1.30); GLOMERULAR FILTRATION RATE 36.4 (>32); MAGNESIUM LEVEL 1.8 MG/DL (1.8-2.4); PERCENT SATURATION 10.9 % (13.2-45.0); PHOSPHORUS LEVEL 3.3 MG/DL (2.5-4.9); POTASSIUM SERUM 4.2 MEQ/L (3.5-5.1); URIC ACID 6.4 MG/DL (2.6-6.0)
[2020-08-12 10:59] LABS: PTH INTACT 31.3 PG/ML (18.5-88.0)
== END ==
PROVIDERS: ATTEND Nurse Practitioner Family
DX: N18.30 Chronic kidney disease, stage 3 unspecified (principal); M1A.30X0 Chronic gout due to renal impairment, unspecified site, without tophus (tophi); D63.1 Anemia in chronic kidney disease

== ENCOUNTER → 2020-08-16 | Outpatient (REF) | payer MEDICARE ==
[~2020-08-16] MED LIST changes: -SIME80CH5 PO; +SIME80TA PO
== END ==
PROVIDERS: ATTEND Internal Medicine
DX: Z20.828 Contact with and (suspected) exposure to other viral communicable diseases (principal)

== ENCOUNTER 2020-08-21 06:58 | Outpatient (CLI) | payer MEDICARE ==
[~2020-08-21] VITALS: Ht 167.6 cm; Wt 64.8 kg
[2020-08-21 07:00] VITALS: BP 150/67
[2020-08-21] MEDS ORDERED: methylPREDNISolone 125MG 2ML VIAL IV PRN (07:01)
[2020-08-21] MEDS ORDERED: diphenhydrAMINE 50MG/ML VIAL (J1200) IV PRN (07:01)
[2020-08-21] MEDS ORDERED: EPINEPHrine INJ 1 MG/ML 1ML AMP IM PRN (07:01)
[2020-08-21] MEDS ORDERED: ALBUTEROL SULFATE 2.5 MG/0.5 ML INH NEB SOLN INH PRN (07:01)
[2020-08-21] MEDS ORDERED: NS 1,000 ML IV SCH (07:30)
[2020-08-21] MEDS ORDERED: FERRIC CARBOXYMALTOSE INJ 750 MG in NS 250 ML IV ONE (07:30)
[2020-08-21] MEDS ORDERED: diphenhydrAMINE 50MG/ML VIAL (J1200) IV ONE (07:30)
[2020-08-21 08:17] VITALS: BP 133/65
[2020-08-21 09:25] VITALS: BP 141/66
[2020-08-21 10:45] VITALS: BP 136/65
[2020-08-21 11:15] VITALS: BP 129/66
== END 2020-08-21 11:15 | disposition home or self-care (01) ==
LOC: M INFU 06:58
PROVIDERS: ATTEND Internal Medicine Nephrology
DX: D50.9 Iron deficiency anemia, unspecified (principal); Z20.828 Contact with and (suspected) exposure to other viral communicable diseases; Z88.1 Allergy status to other antibiotic agents; Z88.0 Allergy status to penicillin; Z88.6 Allergy status to analgesic agent; Z88.8 Allergy status to other drugs, medicaments and biological substances
CPT/HCPCS: 87502; 96365; 96366; J1200; J1439; U0003

== ENCOUNTER → 2020-08-21 | Outpatient (REF) | payer MEDICARE ==
[2020-08-21 16:42] LABS: INFLUENZA A AMPLIFICATION NEGATIVE (NEGATIVE); INFLUENZA B AMPLIFICATION NEGATIVE (NEGATIVE)
== END ==
PROVIDERS: ATTEND Internal Medicine
DX: Z20.828 Contact with and (suspected) exposure to other viral communicable diseases (principal)

== ENCOUNTER → 2020-08-26 | Outpatient (REF) | payer MEDICARE | PROVIDERS: ATTEND Internal Medicine | DX: Z20.828 Contact with and (suspected) exposure to other viral communicable diseases (principal) ==

== ENCOUNTER 2020-08-28 08:26 | Outpatient (CLI) | payer MEDICARE ==
[~2020-08-28] VITALS: Ht 165.1 cm; Wt 55.6 kg
[~2020-08-28 08:26] MED LIST changes: +ALBUTEROL SULFATE 2.5 MG/0.5 ML INH NEB SOLN INH PRN; +EPINEPHrine INJ 1 MG/ML 1ML AMP IM PRN; +diphenhydrAMINE 50MG/ML VIAL (J1200) IV PRN; +methylPREDNISolone 125MG 2ML VIAL IV PRN
[2020-08-28 09:00] VITALS: BP 124/70
[2020-08-28 10:45] VITALS: BP 136/63
[2020-08-28] MEDS ORDERED: FERRIC CARBOXYMALTOSE INJ 750 MG in NS 250 ML IV ONE (12:30)
[2020-08-28] MEDS ORDERED: NS 1,000 ML IV SCH (12:30)
[2020-08-28] MEDS ORDERED: diphenhydrAMINE 50MG/ML VIAL (J1200) IV ONE (12:30)
== END 2020-08-28 10:45 | disposition home or self-care (01) ==
LOC: M INFU 08:26
PROVIDERS: ATTEND Internal Medicine Nephrology
DX: D50.9 Iron deficiency anemia, unspecified (principal); Z88.0 Allergy status to penicillin; Z88.1 Allergy status to other antibiotic agents; Z88.8 Allergy status to other drugs, medicaments and biological substances

== ENCOUNTER → 2020-08-28 | Outpatient (CLI) | payer MEDICARE ==
--- NOTE | 2020-08-28 10:14 | REP ---
INDICATION: OTHER NONSPECIFIC ABNORMAL FIND OF LUNG/INFUSION AFTER CT COMPARISON: 05/27/2020, 08/15/2019 TECHNIQUE: Axial noncontrast images from the thoracic inlet to the upper abdomen with coronal and sagittal reformations. This CT examination was performed using the following dose reduction techniques: Automated exposure control, adjustment of mA and/or kv according to the patient's size, and use of iterative reconstruction technique. FINDINGS: Chronic COPD/emphysematous disease with scattered scarring and bronchiectasis again noted. No effusion. No pneumothorax. The current examination demonstrates new ill-defined nodules with spiculated margins primarily involving the right upper lobe including 13 mm lesion along the posterior right upper lobe (image 50). Few of the previously noted nodular densities remain stable while few primarily identified in the left lower lobe on prior examination have resolved. Reactive mediastinal lymph nodes measure up to approximately 11 mm. These findings are nonspecific but may reflect an ongoing infectious/inflammatory process and require clinical correlation. Further evaluation demonstrates stable diffuse atherosclerotic changes of the thoracic aorta and coronary arteries without aortic aneurysm or cardiomegaly. No pericardial effusion. Pacemaker in stable position. Surrounding osseous structures demonstrate degenerative changes. Limited upper abdomen demonstrates normal bilateral adrenal glands and evidence for prior cholecystectomy. IMPRESSION: 1. Ill-defined nodular densities with spiculated margins are similar in appearance, but have a different distribution than prior examination suggesting an underlying infectious/inflammatory process and malignancy is less likely suspected. 2. Chronic advanced COPD/emphysematous disease and extensive atherosclerotic disease. <Electronically signed by Lars Tiwari > 08/28/20 1017
== END ==
LOC: M RAD 08:29
PROVIDERS: ATTEND Internal Medicine Pulmonary Disease
DX: R91.8 Other nonspecific abnormal finding of lung field (principal); D50.9 Iron deficiency anemia, unspecified; Z88.0 Allergy status to penicillin; Z88.1 Allergy status to other antibiotic agents; Z88.8 Allergy status to other drugs, medicaments and biological substances
CPT/HCPCS: 71250; 96365; 96375; J1200; J1439

== ENCOUNTER → 2020-09-02 | Outpatient (REF) | payer MEDICARE ==
[~2020-09-02] MED LIST changes: -ALBUTEROL SULFATE 2.5 MG/0.5 ML INH NEB SOLN INH PRN; -EPINEPHrine INJ 1 MG/ML 1ML AMP IM PRN; -diphenhydrAMINE 50MG/ML VIAL (J1200) IV PRN; -methylPREDNISolone 125MG 2ML VIAL IV PRN
== END ==
PROVIDERS: ATTEND Internal Medicine
DX: Z20.828 Contact with and (suspected) exposure to other viral communicable diseases (principal)

== ENCOUNTER → 2020-09-09 | Outpatient (REF) | payer MEDICARE | PROVIDERS: ATTEND Internal Medicine | DX: Z11.52 Encounter for screening for COVID-19 (principal) ==

== ENCOUNTER → 2020-09-16 | Outpatient (REF) | payer MEDICARE ==
[~2020-09-16] MED LIST changes: +SIME80CH5 PO; -SIME80TA PO
== END ==
PROVIDERS: ATTEND Internal Medicine
DX: Z20.822 Contact with and (suspected) exposure to COVID-19 (principal)

== ENCOUNTER → 2020-09-23 | Outpatient (REF) | payer MEDICARE | PROVIDERS: ATTEND Internal Medicine | DX: Z20.822 Contact with and (suspected) exposure to COVID-19 (principal) ==

== ENCOUNTER → 2020-09-30 | Outpatient (REF) | payer MEDICARE | PROVIDERS: ATTEND Internal Medicine | DX: Z20.822 Contact with and (suspected) exposure to COVID-19 (principal) ==

== ENCOUNTER → 2020-10-07 | Outpatient (REF) | payer MEDICARE ==
[~2020-10-07] MED LIST changes: -SIME80CH5 PO; +SIME80TA PO
== END ==
PROVIDERS: ATTEND Internal Medicine
DX: Z20.822 Contact with and (suspected) exposure to COVID-19 (principal)

== ENCOUNTER → 2020-10-14 | Outpatient (REF) | payer MEDICARE ==
[~2020-10-14] MED LIST changes: +SIME80CH5 PO; -SIME80TA PO
== END ==
PROVIDERS: ATTEND Internal Medicine
DX: Z20.822 Contact with and (suspected) exposure to COVID-19 (principal)

== ENCOUNTER → 2020-10-21 | Outpatient (REF) | payer MEDICARE | PROVIDERS: ATTEND Internal Medicine | DX: Z20.822 Contact with and (suspected) exposure to COVID-19 (principal) ==

== ENCOUNTER → 2020-11-30 | Outpatient (CLI) | payer MEDICARE ==
[~2020-11-30] MED LIST changes: +ASPI-569 PO; -ASPI81TAEC PO
[2020-11-30 11:26] LABS: BASO # 0.1 10^3/uL (0.0-0.2); BASO % 0.6 % (0.0-1.0); EOS # 0.1 10^3/uL (0.0-0.5); EOS % 1.1 % (0.0-3.0); HEMATOCRIT 36.9 % (36.0-47.0); HEMOGLOBIN 11.9 g/dl (12.0-15.5); LYMPH # 2.3 10^3/uL (1.5-5.0); LYMPH % 24.7 % (24.0-44.0); MEAN CORPUSCULAR HEMOGLOBIN 33.1 pg (27.0-33.0); MEAN CORPUSCULAR HGB CONC 32.2 g/dl (32.0-36.5); MEAN CORPUSCULAR VOLUME 102.5 fl (80.0-96.0); MONO # 0.7 10^3/uL (0.0-0.8); MONO % 7.8 % (2.0-8.0); NEUTROPHILS # 6.2 10^3/uL (1.5-8.5); NEUTROPHILS % 65.6 % (36.0-66.0); PLATELET COUNT, AUTOMATED 246 10^3/uL (150-450)
[2020-11-30 11:55] LABS: ALBUMIN 3.3 GM/DL (3.2-5.2); CALCIUM LEVEL 8.9 MG/DL (8.8-10.2); CREATININE FOR GFR 1.49 MG/DL (0.55-1.30); GLOMERULAR FILTRATION RATE 35.6 (>32); PHOSPHORUS LEVEL 3.2 MG/DL (2.5-4.9); POTASSIUM SERUM 4.4 MEQ/L (3.5-5.1); URIC ACID 5.8 MG/DL (2.6-6.0)
[2020-11-30 17:21] LABS: APPEARANCE, URINE TURBID (CLEAR); BACTERIA, URINE AUTO 2+ (NEGATIVE); BILIRUBIN, URINE AUTO NEGATIVE (NEGATIVE); BLOOD, URINE BLOOD 1+ (NEGATIVE); COLOR, URINE YELLOW (YELLOW); GLUCOSE, URINE (UA) AUTO NEGATIVE (NEGATIVE); KETONE, URINE AUTO NEGATIVE (NEGATIVE); LEUKOCYTE ESTERASE, URINE AUTO 3+ (NEGATIVE); MUCUS, URINE SMALL (NEGATIVE); NITRITE, URINE AUTO NEGATIVE (NEGATIVE); PROTEIN, URINE AUTO 1+ mg/dL (NEGATIVE); RBC, URINE AUTO 4 /HPF (0-3); SPECIFIC GRAVITY URINE AUTO 1.012 (1.002-1.035); SQUAMOUS EPITHELIAL CELL UR AU 16 /HPF (0-6); UROBILINOGEN, URINE AUTO 0.2 mg/dL (0.0-2.0); WBC, URINE AUTO TNTC /HPF (0-3)
[2020-12-02 11:52] LABS: PTH INTACT 50.3 PG/ML (18.5-88.0)
[2020-12-02 13:40] LABS: WHITE BLOOD COUNT 9.4 10^3/uL (4.0-10.0)
== END ==
LOC: M LAB 10:37
PROVIDERS: ATTEND Internal Medicine Nephrology
DX: N18.32 Chronic kidney disease, stage 3b (principal); D50.9 Iron deficiency anemia, unspecified; M1A.30X0 Chronic gout due to renal impairment, unspecified site, without tophus (tophi)

== ENCOUNTER → 2020-12-24 | Outpatient (CLI) | payer MEDICARE ==
--- NOTE | 2020-12-24 10:14 | REP ---
INDICATION: ABN FINDING OF LUNG COMPARISON: 08/28/2020, 05/27/2020, 08/15/2019 TECHNIQUE: Axial noncontrast images from the thoracic inlet to the upper abdomen with coronal and sagittal reformations. This CT examination was performed using the following dose reduction techniques: Automated exposure control, adjustment of mA and/or kv according to the patient's size, and use of iterative reconstruction technique. FINDINGS: Chronic advanced COPD/emphysematous changes with scattered scarring and bronchiectasis is again appreciated and similar to prior examination. Scattered superimposed areas of reticulonodular opacities as well as small areas of ill-defined opacities are identified (right greater than left) the previously noted nodular densities with spiculated margins in the right upper lobe have resolved. Overall these findings suggest un underlying waxing and waning infectious/inflammatory process. Few mediastinal and hilar lymph nodes are again noted and unchanged. No pleural effusion. No pneumothorax. The mediastinum demonstrates atherosclerotic changes to the thoracic aorta and coronary arteries without aortic aneurysm. Sliding hiatal hernia at the gastroesophageal junction noted. Surrounding musculoskeletal structures without acute osseous abnormality. IMPRESSION: Chronic COPD/emphysematous changes with suspected superimposed continued infectious/inflammatory process based on similar findings with changed distribution on multiple prior CT examinations. Differential diagnosis less likely includes malignancy. <Electronically signed by Lars Tiwari > 12/24/20 1011
== END ==
LOC: M RAD 09:36
PROVIDERS: ATTEND Internal Medicine Pulmonary Disease
DX: R91.1 Solitary pulmonary nodule (principal)

== ENCOUNTER → 2021-01-03 | Outpatient (REF) | payer MEDICARE ==
[2021-01-03 17:40] LABS: PERCENT SATURATION 23.3 % (13.2-45.0)
== END ==
LOC: M LAB REF 16:38
PROVIDERS: ATTEND Internal Medicine
DX: D50.9 Iron deficiency anemia, unspecified (principal)

== ENCOUNTER 2021-02-13 08:40 | Inpatient (IN) | payer MEDICARE ==
[~2021-02-13] VITALS: Ht 167.6 cm; Wt 68.6 kg
[2021-02-13] MEDS ORDERED: ONDANSETRON 4MG/2ML VIAL IV ONE (09:00)
[2021-02-13] MEDS ORDERED: ISOVUE-370 76% 100ML VIAL As Ordered ONE (09:33)
[2021-02-13 09:39] LABS: BASO % 0.1 % (0.0-1.0); EOS % 0.3 % (0.0-3.0); HEMATOCRIT 35.5 % (36.0-47.0); HEMOGLOBIN 11.2 g/dl (12.0-15.5); LYMPH # 0.9 10^3/uL (1.5-5.0); LYMPH % 5.5 % (24.0-44.0); MEAN CORPUSCULAR HEMOGLOBIN 31.5 pg (27.0-33.0); MEAN CORPUSCULAR HGB CONC 31.5 g/dl (32.0-36.5); MONO # 1.2 10^3/uL (0.0-0.8); MONO % 7.5 % (2.0-8.0); NEUTROPHILS # 13.3 10^3/uL (1.5-8.5); NEUTROPHILS % 86.1 % (36.0-66.0); PLATELET COUNT, AUTOMATED 240 10^3/uL (150-450); RED BLOOD COUNT 3.55 10^6/uL (4.00-5.40); WHITE BLOOD COUNT 15.5 10^3/uL (4.0-10.0)
[2021-02-13 09:50] LABS: INR 1.44; PROTHROMBIN TIME 17.9 SECONDS (12.5-14.3)
[2021-02-13] MEDS: NS 1,000 ML IV SCH ×4 (09:58→21:22)
[2021-02-13 10:01] LABS: ALBUMIN 2.8 GM/DL (3.2-5.2); ALT/SGPT 11 U/L (12-78); BILIRUBIN,DIRECT 0.1 MG/DL (0.0-0.2); BILIRUBIN,TOTAL 0.4 MG/DL (0.2-1.0); CK-MB VALUE MASS < 1.0 NG/ML (<3.6); CPK CREATINE PHOSPHOKINASE 50 U/L (26-192); LIPASE 45 U/L (73-393); TOTAL PROTEIN 5.8 GM/DL (6.4-8.2); TROPONIN I < 0.02 NG/ML (< 0.10)
--- NOTE | 2021-02-13 10:01 | REP ---
INDICATION: sob COMPARISON: 12/24/2020 TECHNIQUE: Axial contrast enhanced images from the thoracic inlet to the upper abdomen with coronal and sagittal reformations using 100 ml Isovue 370 intravenous contrast material. This CT examination was performed using the following dose reduction techniques: Automated exposure control, adjustment of mA and/or kv according to the patient's size, and use of iterative reconstruction technique. FINDINGS: Chronic interstitial changes are appreciated. Moderate area of consolidation in the right lower lobe is appreciated along with patchy scattered smaller areas of consolidation and airspace disease (right greater than left). Small associated right pleural reaction noted. No pneumothorax. Tracheobronchial tree is patent. Reactive mediastinal and hilar adenopathy noted. Further evaluation of the mediastinum demonstrates atherosclerotic changes to the thoracic aorta and coronary arteries without aortic aneurysm or dissection. No cardiomegaly or pericardial effusion. Pacemaker noted. Moderate sliding hiatal hernia identified. Surrounding musculoskeletal structures are grossly intact. IMPRESSION: Multifocal airspace disease and consolidations consistent with multifocal pneumonia including small right pleural effusion and reactive mediastinal/hilar adenopathy. Follow-up to resolution is required. <Electronically signed by Lars Tiwari > 02/13/21 [id number]
--- NOTE | 2021-02-13 10:04 | REP ---
INDICATION: abd pain/nausea/diarrhea. COMPARISON: 04/18/2020 TECHNIQUE: Axial contrast-enhanced images from the lung bases to the pubic symphysis using 100 cc Isovue 370 intravenous contrast material. Coronal and sagittal reformations obtained. This CT examination was performed using the following dose reduction techniques: Automated exposure control, adjustment of mA and/or kv according to the patient's size, and the use of iterative reconstruction technique. FINDINGS: Right lower lobe consolidation and patchy airspace disease at the lung bases. Sliding hiatal hernia. Liver, spleen, pancreas, bilateral adrenal glands and kidneys are essentially normal/stable. Kidneys demonstrate areas of cortical scarring but no acute perinephric stranding or hydronephrosis. Evidence for prior cholecystectomy again noted. The enteric system is without obstruction or acute inflammatory process. Few scattered sigmoid diverticula noted without acute diverticulitis. Evidence for prior partial colonic resection suggested. Pelvis demonstrates normal bladder and evidence for prior hysterectomy. Atherosclerotic changes to the aorta and vasculature noted without aneurysm. IVC filter in stable satisfactory position. No ascites. No free air. No obvious adenopathy. Musculoskeletal structures demonstrate age-related degenerative changes without acute osseous abnormality. IMPRESSION: 1. Consolidations and airspace disease at the lung bases require correlation and possibly related to patient's symptoms. 2. Relatively chronic nonacute findings within the abdomen and pelvis. No obvious acute abdominopelvic pathology appreciated. 3. No ascites, focal inflammatory stranding, free air, or adenopathy noted. <Electronically signed by Lars Tiwari > 02/13/21 1000
[2021-02-13] MEDS ORDERED: NS 500 ML IV ONE ×2 (10:10→22:55)
[2021-02-13] MEDS ORDERED: SENN1TAB41 PO (10:28)
[2021-02-13] MEDS ORDERED: SUCR1TAB56 PO (10:28)
[2021-02-13] MEDS ORDERED: PANT40TA29 PO (10:28)
[2021-02-13] MEDS ORDERED: ZOFR4TAB16 PO (10:28)
[2021-02-13] MEDS ORDERED: AZITHROMYCIN INJ 500 MG, VIAL MATE ADAPTER 1 EACH in NS 250 ML IV ONE (10:30)
[2021-02-13] MEDS ORDERED: cefTRIAXone SOD 2 GM in D5W MINI-BAG PLUS 50 ML IV ONE (10:30)
[2021-02-13] MEDS ORDERED: NS 1,930 ML in IV 1 EA IV ONE (10:35)
[2021-02-13] MEDS ORDERED: ACET650T15 PO (11:19)
[2021-02-13] MEDS ORDERED: SODI325T9 PO (11:19)
[2021-02-13] MEDS ORDERED: MILKSUS3 PO (11:19)
[2021-02-13] MEDS ORDERED: VOLT1GEL15 TOP (11:19)
[2021-02-13 12:17] LABS: RSV AMPLIFICATION NEGATIVE (NEGATIVE)
[2021-02-13] MEDS ORDERED: ACETAMINOPHEN TAB 650MG DOSE (2X325MG) PO PRN (13:30)
[2021-02-13] MEDS ORDERED: ALBUTEROL SULFATE 2.5 MG/0.5 ML INH NEB SOLN INH PRN (13:35)
[2021-02-13] MEDS ORDERED: NITROGLYCERIN 0.4 MG SUBL TABLET SL PRN (13:35)
[2021-02-13] MEDS ORDERED: MOM 30ML SUSPENSION UDC PO PRN (13:35)
[2021-02-13] MEDS ORDERED: ONDANSETRON 4 MG TAB PO PRN (13:35)
[2021-02-13] MEDS ORDERED: NS 1,000 ML IV ONE (13:40)
[2021-02-13] MEDS ORDERED: DEXTROSE 50% 50 ML SYRINGE IV PRN (14:00)
[2021-02-13] MEDS ORDERED: GLUCOSE 4GM CHEW TABLET PO PRN (14:00)
[2021-02-13] MEDS ORDERED: GLUCAGON INJ 1MG VIAL SC PRN (14:00)
--- NOTE | 2021-02-13 14:12 | HPEPDOC ---
General Date of Admission Feb 13, 2021 at 13:29 Date of Service: Feb 13, 2021 Chief Complaint The patient is a 85-year-old female admitted with a reason for visit of Pneumonia. 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 , GERD, Glaucoma and Macular degeneration, H/O SBO due to adhesion presented to the hospital with increased SOB. Pt patient stated for past 2 days she's been having increased shortness of breath, associated with cough and sputum production. She told me that sputum was yellowish. Also patient stated that she has been having generalized weakness. She reported chills. In ER patient was found to have low blood pressure of 88/55, leukocytosis of 15.5, hemoglobin 11.2, lactic acid 1.3. CT chest showed Multifocal airspace disease and consolidations consistent with multifocal pneumonia including small right pleural effusion and reactive mediastinal/hilar adenopathy Home Medications Scheduled Acetaminophen (Tylenol Extra Strength) 500 Mg Tablet, 1,000 MG PO BID, (Reported) Allopurinol (Allopurinol) 100 Mg Tablet, 100 MG PO DAILY, (Reported) Bimatoprost (Lumigan) 0.01% 2.5ML Drops, 1 DROP OU QHS, (Reported) Brinzolamide (Azopt) 1% 10ML Drops.susp, 1 DROP OU BID, (Reported) Calcitriol (Calcitriol) 0.25 Mcg Capsule, 0.25 MCG PO DAILY, (Reported) Cholecalciferol (Vitamin D3) (Vitamin D3) 50 Mcg Capsule, 50 MCG PO DAILY, (Reported) Ferrous Gluconate (Ferrous Gluconate) 324 Mg Tablet, 324 MG PO DAILY, (Reported) Pantoprazole Sodium (Pantoprazole Sodium) 40 Mg Tablet.dr, 40 MG PO DAILY, (Reported) Rivaroxaban (Xarelto) 15 Mg Tablet, 15 MG PO QPM, (Reported) 1700 Salmeterol/Fluticasone (Advair 500-50 Diskus) 1 Each Blst.w.dev, 1 PUFF INH BID, (Reported) Sennosides/Docusate Sodium (Senna-S Tablet) 1 Each Tablet, 2 TAB PO DAILY, (Reported) Sodium Bicarbonate (Sodium Bicarbonate) 325 Mg Tablet, 325 MG PO BID, (Reported) Sucralfate (Sucralfate) 1 Gm Tablet, 1 GM PO AC, (Reported) Vit C/E/Zn/Coppr/Lutein/Zeaxan (Preservision Areds 2 Softgel) 1 Each Capsule, 1 CAP PO BID, (Reported) Scheduled PRN Acetaminophen (Acetaminophen ER) 650 Mg Tablet.er, 650 MG PO Q8H PRN for PAIN, (Reported) Albuterol Sulf (Albuterol Sulfate) 2.5 Mg/3 Ml Vial.neb, 2.5 MG INH QID PRN for SHORTNESS OF BREATH, (Reported) Diclofenac Sodium (Voltaren) 100 Gm Gel..gram., 1 GRAM TOP QID PRN for MUSCLE ACHE, (Reported) Magnesium Hydroxide (Milk of Magnesia) 400 Mg/5 Ml Oral.susp, 2,400 MG PO DAILY PRN for CONSTIPATION, (Reported) Nitroglycerin (Nitrostat) 0.4 Mg Tab.subl, 0.4 MG SL NITRO PRN for CHEST PAIN, (Reported) Ondansetron HCl (Zofran) 4 Mg Tablet, 4 MG PO Q6H PRN for NAUSEA OR VOMITING, (Reported) Allergies Coded Allergies: carvedilol (Verified Allergy, Severe, difficulty breathing, 03/27/20) pitavastatin (Verified Allergy, Severe, anaphylaxis, 03/27/20) Penicillins (Verified Allergy, Intermediate, rash, 03/27/20) Quinolones (Verified Allergy, Intermediate, rash, 03/27/20) DG Inhibitors (Verified Adverse Reaction, Intermediate, kidney problems / cough, 03/27/20) dexamethasone (Verified Adverse Reaction, Intermediate, eyes burn, 02/13/21) dorzolamide (Verified Adverse Reaction, Intermediate, eyes burn, 02/13/21) neomycin (Verified Adverse Reaction, Intermediate, eyes burn, 02/13/21) polymyxin B (Verified Adverse Reaction, Intermediate, eyes burn, 02/13/21) timolol (Verified Adverse Reaction, Intermediate, eyes burn, 02/13/21) Nxrkkvm-Kzd-Ytn Reductase Inhibitor (Verified Adverse Reaction, Mild, myalgia, 03/27/20) colesevelam (Verified Adverse Reaction, Mild, myalgia, 03/27/20) ezetimibe (Verified Adverse Reaction, Mild, myalgia, 03/27/20) losartan (Verified Adverse Reaction, Mild, nausea / no appetite, 03/27/20) Past Medical History Medical History COPD CKD Diabetes right leg DVT and left leg DVT chronic IVC filter placement CAD s/p stents 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 GERD Glaucoma and Macular degeneration H/O SBO due to adhesions H/O Upper GI bleed Surgical History IVC filter placement on 04/18/19 subtotal colectomy sometime around 1999. hysterectomy. Cholecystectomy. Appendectomy. Multiple breast biopsies. Cataract surgery bilaterally. History of an RCA stent in 2004. Family History i personally reviewed family history and found not pertinent Social History * Smoker: former Smoker Alcohol: Denies Drugs: denies A-FIB/CHADSVASC A-FIB History Current/History of A-Fib/PAF?: No Current PO Anticoag Therapy: No Review of Systems Constitutional: Reports: Chills, Weakness Eyes: Denies: Pain Skin: Denies: Rash Pulmonary: Reports: Dyspnea, Cough Cardiovascular: Denies: Chest Pain, Palpitations Gastrointestinal: Denies: Nausea, Vomiting Genitourinary: Denies: Dysuria Hematologic: Denies: Bruising Endocrine: Denies: Polyphagia Musculoskeletal: Denies: Neck Pain Neurological: Denies: Weakness Psych: Reports: Mood Normal Physical Examination General Exam: Positive: Alert, Cooperative Eye Exam: Positive: PERRLA ENT Exam: Positive: Atraumatic Neck Exam: Positive: Supple; Negative: JVD Chest Exam: Positive: Rhonchi Heart Exam: Positive: Rate Normal Telemetry: Positive: No significant arrhythmia Abdomen Exam: Positive: Normal bowel sounds Extremity Exam: Negative: Clubbing, Cyanosis Skin Exam: Positive: Nl turgor and temperature Neuro Exam: Positive: Strength at 5/5 X4 ext, Cranial Nerves 3-12 NL Psych Exam: Positive: Mental status NL Vital Signs Vital Signs Date Time Temp Pulse Resp B/P (MAP) Pulse Ox O2 Delivery O2 Flow Rate FiO2 02/13/21 12:00 69 19 92/54 (67) 91 Nasal Cannula 1.0 02/13/21 08:53 100.0 Laboratory Data Labs 24H Laboratory Tests 2 02/13/21 09:20: Immature Granulocyte % (Auto) 0.5, Neutrophils (%) (Auto) 86.1H, Lymphocytes (%) (Auto) 5.5L, Monocytes (%) (Auto) 7.5, Eosinophils (%) (Auto) 0.3, Basophils (%) (Auto) 0.1, Neutrophils # (Auto) 13.3H, Lymphocytes # (Auto) 0.9L, Monocytes # (Auto) 1.2H, Eosinophils # (Auto) 0.0, Basophils # (Auto) 0.0, Nucleated Red Blood Cells % (auto) 0.0, Prothrombin Time 17.9H, Prothromb Time International Ratio 1.44, Total Bilirubin 0.4, Direct Bilirubin 0.1, Aspartate Amino Transf (AST/SGOT) 8, Alanine Aminotransferase (ALT/SGPT) 11L, Alkaline Phosphatase 100, Total Creatine Kinase 50, Creatine Kinase MB < 1.0, Creatine Kinase MB Relative Index 2.00, Troponin I < 0.02, Total Protein 5.8L, Albumin 2.8L, Albumin/Globulin Ratio 0.9L, Lipase 45L 02/13/21 09:28: POC Glucose (Misc Panel) 146H, POC Sodium (Misc Panel) 140, POC Potassium (Misc Panel) 4.1, POC Chloride (Misc Panel) 113H, POC Total CO2 (Misc Panel) 19.0L, POC Blood Urea Nitrogen (Misc Panel 37H, POC Ionized Calcium (Misc Panel) 5.5H, POC Creatinine (Misc Panel) 1.6H, POC Hematocrit (Misc Panel) 34.0L 02/13/21 10:49: Coronavirus (COVID-19)(PCR) NEGATIVE, Influenza Type A (RT-PCR) NEGATIVE, Influenza Type B (RT-PCR) NEGATIVE, Respiratory Syncytial Virus (PCR) NEGATIVE 02/13/21 10:50: Lactic Acid Level 1.3 CBC/BMP Laboratory Tests 02/13/21 09:20 Microbiology Microbiology 02/13/21 Blood Culture, Received Pending 02/13/21 Blood Culture, Received Pending Assessment/Plan Pt is 84 year old female with PMH of COPD , CKD 3, Diabetes mellitus to, 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 , GERD, Glaucoma and Macular degeneration, H/O SBO due to adhesion presented to the hospital with increased SOB. Pt patient stated for past 2 days she's been having increased shortness of breath, associated with cough and sputum production. She told me that sputum was yellowish. Also patient stated that she has been having generalized weakness. She reported chills. In ER patient was found to have low blood pressure of 88/55, leukocytosis of 15.5, hemoglobin 11.2, lactic acid 1.3. CT chest showed Multifocal airspace disease and consolidations consistent with multifocal pneumonia including small right pleural effusion and reactive mediastinal/hilar adenopathy Problems (1) Sepsis Problem Text: Severe sepsis with hypotension, patient has leukocytosis with hypotension Most likely secondary to bilateral community acquired pneumonia Blood culture, sputum culture Cephalexin IV, azithromycin IV Prednisone by mouth Incentive spirometry IV fluid (2) CAP (community acquired pneumonia) Status: Acute Problem Text: See above (3) Deep vein thrombosis Status: Chronic Problem Text: Continue anticoagulation (4) Diabetes Status: Acute Problem Text: Diabetes diet Insulin sliding scale (5) CKD (chronic kidney disease) Status: Chronic Problem Text: Creatinine at baseline Continue to monitor Plan / VTE VTE Prophylaxis Ordered?: Yes SILVIA ZALDIVAR DO Feb 13, 2021 14:12
[2021-02-13] MEDS ORDERED: predniSONE 20 MG TAB PO ONE (14:15)
[2021-02-13 14:44] LABS: BLOOD UREA NITROGEN 44 MG/DL (7-18); CARBON DIOXIDE LEVEL 18 MEQ/L (21-32); CHLORIDE LEVEL 113 MEQ/L (98-107); CREATININE FOR GFR 1.54 MG/DL (0.55-1.30); GLOMERULAR FILTRATION RATE 34.2 (>32); GLUCOSE, FASTING 144 MG/DL (70-100); POTASSIUM SERUM 4.4 MEQ/L (3.5-5.1); SODIUM LEVEL 142 MEQ/L (136-145)
[2021-02-13] MEDS: IPRATROPIUM 0.5MG/ALBUTEROL 2.5MG INH SOL UD 3ML (DUONEB) INH SCH ×3 (15:23→23:25)
[2021-02-13 16:09] VITALS: BP 119/58
[2021-02-13] MEDS: RIVAROXABAN 15 MG TAB (XARELTO) PO SCH (17:12)
[2021-02-13] MEDS: FERROUS GLUCONATE 324 MG TAB PO SCH (17:12)
[2021-02-13] MEDS: HumaLOG INSULIN (NovoLOG) PER UNIT SC SCH ×2 (17:13→21:00)
[2021-02-13] MEDS: SUCRALFATE 1 GM TAB PO SCH ×2 (17:13→17:15)
[2021-02-13] MEDS: allopurinoL 100 MG TAB PO SCH (17:13)
[2021-02-13] MEDS: CALCITRIOL 0.25 MCG CAP (S0169) PO SCH (17:13)
[2021-02-13] MEDS: SENOKOT S TAB PO SCH (17:14)
[2021-02-13] MEDS: PANTOPRAZOLE 40MG TAB (PROTONIX) PO SCH (17:21)
[2021-02-13] MEDS ORDERED: HumaLOG INSULIN (NovoLOG) PER UNIT SC SCH (17:30)
[2021-02-13 18:29] LABS: APPEARANCE, URINE TURBID (CLEAR); BACTERIA, URINE AUTO 2+ (NEGATIVE); BILIRUBIN, URINE AUTO NEGATIVE (NEGATIVE); BLOOD, URINE BLOOD 1+ (NEGATIVE); COLOR, URINE YELLOW (YELLOW); GLUCOSE, URINE (UA) AUTO NEGATIVE (NEGATIVE); KETONE, URINE AUTO NEGATIVE (NEGATIVE); LEUKOCYTE ESTERASE, URINE AUTO 3+ (NEGATIVE); MUCUS, URINE SMALL (NEGATIVE); NITRITE, URINE AUTO NEGATIVE (NEGATIVE); PROTEIN, URINE AUTO NEGATIVE (NEGATIVE); RBC, URINE AUTO 4 /HPF (0-3); SPECIFIC GRAVITY URINE AUTO 1.035 (1.002-1.035); SQUAMOUS EPITHELIAL CELL UR AU 2 /HPF (0-6); UROBILINOGEN, URINE AUTO 0.2 mg/dL (0.0-2.0); WBC, URINE AUTO TNTC /HPF (0-3)
[2021-02-13 20:00] VITALS: BP 90/52
[2021-02-13] MEDS: ADVAIR HFA 230/21MCG INHALER INH SCH (20:11)
[2021-02-13] MEDS ORDERED: HEPARIN SOD (PORCINE) 5000UNITS/ML 1ML VIAL/SYRINGE SC SCH (21:00)
[2021-02-13] MEDS: SODIUM BICARBONATE 325 MG TAB PO SCH (21:20)
[2021-02-13] MEDS: BRINZOLAMIDE 1 % OPHTH SUSP (AZOPT) 10ML OU SCH (21:20)
[2021-02-13 21:59] VITALS: BP 90/54
[2021-02-13 22:52] VITALS: BP 88/54
[2021-02-14] VITALS: BP 94/56
[2021-02-14] MEDS: NS 1,000 ML IV SCH ×2 (02:15→09:05)
--- NOTE | 2021-02-14 03:11 | ECGEPIP ---
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
[2021-02-14] MEDS: IPRATROPIUM 0.5MG/ALBUTEROL 2.5MG INH SOL UD 3ML (DUONEB) INH SCH ×6 (03:16→23:15)
[2021-02-14 04:02] LABS: HEMATOCRIT 26.7 % (36.0-47.0); MEAN CORPUSCULAR HEMOGLOBIN 32.1 pg (27.0-33.0); MEAN CORPUSCULAR HGB CONC 31.8 g/dl (32.0-36.5); MEAN CORPUSCULAR VOLUME 100.8 fl (80.0-96.0); PLATELET COUNT, AUTOMATED 182 10^3/uL (150-450); RED BLOOD COUNT 2.65 10^6/uL (4.00-5.40); WHITE BLOOD COUNT 10.9 10^3/uL (4.0-10.0)
[2021-02-14 04:03] LABS: HEMOGLOBIN 8.5 g/dl (12.0-15.5)
[2021-02-14 04:07] VITALS: BP 82/54
[2021-02-14 04:26] LABS: ALBUMIN 2.2 GM/DL (3.2-5.2); ALT/SGPT 8 U/L (12-78); BILIRUBIN,TOTAL 0.2 MG/DL (0.2-1.0); BLOOD UREA NITROGEN 38 MG/DL (7-18); CALCIUM LEVEL 7.5 MG/DL (8.8-10.2); CARBON DIOXIDE LEVEL 16 MEQ/L (21-32); CHLORIDE LEVEL 116 MEQ/L (98-107); CREATININE FOR GFR 1.55 MG/DL (0.55-1.30); GLUCOSE, FASTING 180 MG/DL (70-100); MAGNESIUM LEVEL 1.6 MG/DL (1.8-2.4); POTASSIUM SERUM 4.2 MEQ/L (3.5-5.1); SODIUM LEVEL 143 MEQ/L (136-145); TOTAL PROTEIN 4.8 GM/DL (6.4-8.2)
[2021-02-14] MEDS ORDERED: NS 1,000 ML IV ONE (04:35)
[2021-02-14 06:05] VITALS: BP 98/56
[2021-02-14] MEDS: ADVAIR HFA 230/21MCG INHALER INH SCH ×2 (07:32→19:52)
[2021-02-14 08:00] VITALS: BP 110/64
[2021-02-14] MEDS: BRINZOLAMIDE 1 % OPHTH SUSP (AZOPT) 10ML OU SCH ×2 (09:03→19:27)
[2021-02-14] MEDS: HumaLOG INSULIN (NovoLOG) PER UNIT SC SCH ×4 (09:03→20:13)
[2021-02-14] MEDS: SENOKOT S TAB PO SCH (09:04)
[2021-02-14] MEDS: FERROUS GLUCONATE 324 MG TAB PO SCH (09:04)
[2021-02-14] MEDS: predniSONE 20 MG TAB PO SCH (09:04)
[2021-02-14] MEDS: CALCITRIOL 0.25 MCG CAP (S0169) PO SCH (09:04)
[2021-02-14] MEDS: SUCRALFATE 1 GM TAB PO SCH ×3 (09:04→17:33)
[2021-02-14] MEDS: PANTOPRAZOLE 40MG TAB (PROTONIX) PO SCH (09:04)
[2021-02-14] MEDS: SODIUM BICARBONATE 325 MG TAB PO SCH ×2 (09:04→20:19)
[2021-02-14] MEDS: allopurinoL 100 MG TAB PO SCH (09:04)
[2021-02-14] MEDS: cefTRIAXone SOD 2 GM in D5W MINI-BAG PLUS 50 ML IV SCH (10:36)
[2021-02-14] MEDS ORDERED: SLF 3 ML SYR IV PRN (11:00)
--- NOTE | 2021-02-14 11:02 | IPNPDOC ---
Text Note Date of Service The patient was seen on 02/14/21. NOTE Subjective: Patient stated that she feels better today, her breathing improved. 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 , GERD, Glaucoma and Macular degeneration, H/O SBO due to adhesion presented to the hospital with increased SOB. Pt patient stated for past 2 days she's been having increa sed shortness of breath, associated with cough and sputum production. She told me that sputum was yellowish. Also patient stated that she has been having generalized weakness. She reported chills. In ER patient was found to have low blood pressure of 88/55, leukocytosis of 15.5, hemoglobin 11.2, lactic acid 1.3. CT chest showed Multifocal airspace disease and consolidations consistent with multifocal pneumonia including small right pleural effusion and reactive mediastinal/hilar adenopathy Problems (1) Sepsis Resolved. Leukocytosis improved today Severe sepsis with hypotension, patient had leukocytosis with hypotension on admission Most likely secondary to bilateral community acquired pneumonia First set of Blood culture positive for gram-positive cocci in clusters, will repeat blood culture, await sputum culture Ceftriaxone IV, doxycycline IV Prednisone by mouth Incentive spirometry IV fluid (2) CAP (community acquired pneumonia) See above (3) Deep vein thrombosis Continue anticoagulation (4) Diabetes Diabetes diet Insulin sliding scale (5) CKD (chronic kidney disease) Creatinine at baseline Continue to monitor Hypercalcemia Stop calcitriol Macrocytic anemia Will check B12, folate, iron panel Stool for occult blood VS,Fishbone, I+O VS, Fishbone, I+O Laboratory Tests 02/14/21 03:42 Vital Signs Date Time Temp Pulse Resp B/P (MAP) Pulse Ox O2 Delivery O2 Flow Rate FiO2 02/14/21 08:00 97.0 85 17 110/64 (79) 93 Room Air 02/13/21 15:45 1.0 I&O- Last 24 Hours up to 6 AM 02/14/21 06:00 Intake Total 4827.5 ml Output Total 500 ml Balance 4327.5 ml SILVIA ZALDIVAR DO Feb 14, 2021 11:02
[2021-02-14] MEDS: DOXYCYCLINE HYCLATE 100 MG in D5W MINI-BAG PLUS 100 ML IV SCH ×2 (11:22→23:10)
[2021-02-14 12:00] VITALS: BP 137/63
[2021-02-14] MEDS ORDERED: AZITHROMYCIN INJ 500 MG, VIAL MATE ADAPTER 1 EACH in NS 250 ML IV SCH (12:00)
[2021-02-14 12:56] LABS: FOLATE 7.9 NG/ML (>5.4); IRON (FE) 8 UG/DL (50-170); PERCENT SATURATION 5.1 % (13.2-45.0); TOTAL IRON BINDING CAPACITY 157 UG/DL (250-450); VITAMIN B12 LEVEL 350 PG/ML (247-911)
[2021-02-14] MEDS: SLF 3 ML SYR IV SCH ×2 (14:00→23:10)
[2021-02-14] MEDS: RIVAROXABAN 15 MG TAB (XARELTO) PO SCH (17:33)
[2021-02-14] MEDS ORDERED: CALCIUM CARBONATE 500 MG CHEW U/D PO PRN (18:40)
[2021-02-14 22:00] VITALS: BP 135/56
[2021-02-15] MEDS ORDERED: CALCIUM CARBONATE 500 MG CHEW U/D PO ONE (00:50)
[2021-02-15] MEDS: IPRATROPIUM 0.5MG/ALBUTEROL 2.5MG INH SOL UD 3ML (DUONEB) INH SCH ×6 (03:26→23:19)
[2021-02-15 06:00] VITALS: BP 100/55
[2021-02-15] MEDS: SLF 3 ML SYR IV SCH ×3 (06:00→21:06)
[2021-02-15 06:23] LABS: HEMATOCRIT 24.9 % (36.0-47.0); HEMOGLOBIN 7.7 g/dl (12.0-15.5); LYMPH % 9.1 % (24.0-44.0); MEAN CORPUSCULAR HEMOGLOBIN 31.4 pg (27.0-33.0); MEAN CORPUSCULAR HGB CONC 30.9 g/dl (32.0-36.5); MEAN CORPUSCULAR VOLUME 101.6 fl (80.0-96.0); MONO # 0.6 10^3/uL (0.0-0.8); MONO % 5.2 % (2.0-8.0); NEUTROPHILS # 9.3 10^3/uL (1.5-8.5); NEUTROPHILS % 84.8 % (36.0-66.0); PLATELET COUNT, AUTOMATED 183 10^3/uL (150-450); RED BLOOD COUNT 2.45 10^6/uL (4.00-5.40)
[2021-02-15 06:47] LABS: ALBUMIN 2.1 GM/DL (3.2-5.2); BILIRUBIN,TOTAL 0.1 MG/DL (0.2-1.0); CREATININE FOR GFR 1.62 MG/DL (0.55-1.30); GLOMERULAR FILTRATION RATE 32.3 (>32); MAGNESIUM LEVEL 1.6 MG/DL (1.8-2.4); POTASSIUM SERUM 3.8 MEQ/L (3.5-5.1); TOTAL PROTEIN 4.6 GM/DL (6.4-8.2)
[2021-02-15] MEDS: ADVAIR HFA 230/21MCG INHALER INH SCH ×2 (07:46→20:13)
[2021-02-15] MEDS: PANTOPRAZOLE 40MG TAB (PROTONIX) PO SCH (08:33)
[2021-02-15] MEDS: predniSONE 20 MG TAB PO SCH (08:33)
[2021-02-15] MEDS: SENOKOT S TAB PO SCH (08:33)
[2021-02-15] MEDS: HumaLOG INSULIN (NovoLOG) PER UNIT SC SCH ×4 (08:33→21:00)
[2021-02-15] MEDS: SODIUM BICARBONATE 325 MG TAB PO SCH ×2 (08:33→21:05)
[2021-02-15] MEDS: SUCRALFATE 1 GM TAB PO SCH ×3 (08:33→18:09)
[2021-02-15] MEDS: FERROUS GLUCONATE 324 MG TAB PO SCH (08:33)
[2021-02-15] MEDS: allopurinoL 100 MG TAB PO SCH (08:33)
[2021-02-15] MEDS: BRINZOLAMIDE 1 % OPHTH SUSP (AZOPT) 10ML OU SCH ×2 (08:34→21:07)
[2021-02-15] MEDS: cefTRIAXone SOD 2 GM in D5W MINI-BAG PLUS 50 ML IV SCH (11:36)
--- NOTE | 2021-02-15 11:37 | IPNPDOC ---
Text Note Date of Service The patient was seen on 02/15/21. NOTE Hospitalist Progress Note Subjective: Patient is sitting in the recliner when I am in the room, she is awake and alert. She is a good historian. She reports that her breathing is feeling much better, but she does continue to have intermittent coughing, but at this time she is not necessarily bringing up anything, which is why we have not been able to get a sputum culture as of yet. Her primary complaint at this time is that of heartburn, she is aware of having a hiatal hernia and has an appointment with GI coming up in the next few weeks for an EGD. Otherwise, the remainder of her review of systems is negative. Objective: General: Awake, alert, oriented 3. Not in any acute distress. HEENT: Head normocephalic, atraumatic, sclera are nonicteric. Hearing is grossly intact to conversation. Respiratory: Clear to auscultation bilaterally with no wheezes, rales, or rhonchi. Cardiovascular: Regular rate and rhythm, with no rubs, gallops, or murmur. Abdomen: Soft, nontender, nondistended, no hepatosplenomegaly appreciated. Bowel sounds present. Extremities: 2+ pulses in the radial and dorsalis pedis bilaterally. No evidence of clubbing or cyanosis. Assessment: Community acquired pneumonia Sepsis, resolved Leukocytosis, improving History of DVT Diabetes mellitus type 2 Chronic kidney disease Hypercalcemia Macrocytic anemia, iron panel consistent with anemia of chronic disease (B12 and folate within normal limits) Plan: She does continue to have persistent leukocytosis. Since the sputum sample cannot be obtained and cultured, will order respiratory panel at this time. She does have anemia, and her H&H continues to drop, will repeat another H&H today around noon, if it continues to be below 8, may need blood transfusion. She does have an order for stool for occult blood, however this has not yet been collected, she only has one documented bowel movement since arrival. Continue with empiric antibiotics of ceftriaxone and doxycycline for inpatient treatment of community-acquired pneumonia with comorbidity (COPD). Otherwise continue with nebulizers and prednisone as well. No change in the remainder of her home medications for her chronic medical conditions. One of her eyedrops (L umigan) we did not have on formulary, but we do have an equivalent substitute, therefore this will be used starting tonight. VS,Fishbone, I+O VS, Fishbone, I+O Laboratory Tests 02/15/21 05:46 Vital Signs Date Time Temp Pulse Resp B/P (MAP) Pulse Ox O2 Delivery O2 Flow Rate FiO2 02/15/21 06:00 98.2 84 19 100/55 (70) 95 Room Air 02/13/21 15:45 1.0 I&O- Last 24 Hours up to 6 AM 02/15/21 06:00 Intake Total 1170 ml Output Total 300 ml Balance 870 ml JAREN NGUYEN DO Feb 15, 2021 11:37
[2021-02-15] MEDS: DOXYCYCLINE HYCLATE 100 MG in D5W MINI-BAG PLUS 100 ML IV SCH ×2 (12:09→22:00)
[2021-02-15 12:16] LABS: HEMATOCRIT 27.9 % (36.0-47.0); HEMOGLOBIN 8.9 g/dl (12.0-15.5)
[2021-02-15 14:00] VITALS: BP 113/58
[2021-02-15] MEDS: RIVAROXABAN 15 MG TAB (XARELTO) PO SCH (18:09)
[2021-02-15] MEDS: LATANOPROST 0.005% OPHTH SOLN 2.5 ML OU SCH (21:06)
[2021-02-15 22:00] VITALS: BP 134/60
[2021-02-16] MEDS: IPRATROPIUM 0.5MG/ALBUTEROL 2.5MG INH SOL UD 3ML (DUONEB) INH SCH ×5 (03:45→20:51)
[2021-02-16] MEDS: SLF 3 ML SYR IV SCH ×3 (05:52→20:13)
[2021-02-16 06:00] VITALS: BP 115/59
[2021-02-16 06:07] LABS: HEMOGLOBIN 8.3 g/dl (12.0-15.5); LYMPH # 1.3 10^3/uL (1.5-5.0); LYMPH % 12.9 % (24.0-44.0); MEAN CORPUSCULAR HEMOGLOBIN 31.2 pg (27.0-33.0); MEAN CORPUSCULAR HGB CONC 31.9 g/dl (32.0-36.5); MEAN CORPUSCULAR VOLUME 97.7 fl (80.0-96.0); MONO # 0.6 10^3/uL (0.0-0.8); MONO % 6.2 % (2.0-8.0); NEUTROPHILS # 8.1 10^3/uL (1.5-8.5); NEUTROPHILS % 79.9 % (36.0-66.0); PLATELET COUNT, AUTOMATED 208 10^3/uL (150-450); RED BLOOD COUNT 2.66 10^6/uL (4.00-5.40); WHITE BLOOD COUNT 10.2 10^3/uL (4.0-10.0)
[2021-02-16 06:27] LABS: ALBUMIN 2.4 GM/DL (3.2-5.2); BILIRUBIN,TOTAL 0.2 MG/DL (0.2-1.0); CALCIUM LEVEL 8.4 MG/DL (8.8-10.2); CREATININE FOR GFR 1.48 MG/DL (0.55-1.30); GLOMERULAR FILTRATION RATE 35.9 (>32); MAGNESIUM LEVEL 1.6 MG/DL (1.8-2.4); POTASSIUM SERUM 3.8 MEQ/L (3.5-5.1); TOTAL PROTEIN 4.8 GM/DL (6.4-8.2)
[2021-02-16] MEDS: DOXYCYCLINE HYCLATE 100MG TABLET PO SCH ×2 (07:35→17:43)
[2021-02-16] MEDS: SUCRALFATE 1 GM TAB PO SCH ×3 (07:35→17:43)
[2021-02-16] MEDS: HumaLOG INSULIN (NovoLOG) PER UNIT SC SCH ×4 (07:36→20:12)
[2021-02-16] MEDS: ADVAIR HFA 230/21MCG INHALER INH SCH ×2 (07:48→20:51)
[2021-02-16] MEDS: BRINZOLAMIDE 1 % OPHTH SUSP (AZOPT) 10ML OU SCH ×2 (08:24→20:13)
[2021-02-16] MEDS: predniSONE 20 MG TAB PO SCH (08:24)
[2021-02-16] MEDS: SODIUM BICARBONATE 325 MG TAB PO SCH ×2 (08:24→20:12)
[2021-02-16] MEDS: PANTOPRAZOLE 40MG TAB (PROTONIX) PO SCH (08:24)
[2021-02-16] MEDS: FERROUS GLUCONATE 324 MG TAB PO SCH (08:24)
[2021-02-16] MEDS: allopurinoL 100 MG TAB PO SCH (08:24)
[2021-02-16] MEDS: SENOKOT S TAB PO SCH (08:24)
[2021-02-16] MEDS ORDERED: MAG SULF 1GM/100ML (MAG RUN) 1 GM in IV 1 EA IV ONE (09:00)
--- NOTE | 2021-02-16 10:33 | IPNPDOC ---
Text Note Date of Service The patient was seen on 02/16/21. NOTE Hospitalist Progress Note Subjective: She continues to feel better. Breathing seems to be getting better as well. She reports that she always has wheeze at baseline. Otherwise, she has no complaints at this time Objective: General: Awake, alert, oriented 3. Not in any acute distress. HEENT: Head normocephalic, atraumatic, sclera are nonicteric. Hearing is grossly intact to conversation. Respiratory: Inspiratory and expiratory wheeze noted throughout Cardiovascular: Regular rate and rhythm, with no rubs, gallops, or murmur. Abdomen: Soft, nontender, nondistended, no hepatosplenomegaly appreciated. Bowel sounds present. Extremities: 2+ pulses in the radial and dorsalis pedis bilaterally. No evidence of clubbing or cyanosis. Assessment: Community acquired pneumonia Sepsis, resolved Leukocytosis, improving History of DVT Diabetes mellitus type 2 Chronic kidney disease Hypercalcemia Macrocytic anemia, iron panel consistent with anemia of chronic disease (B12 and folate within normal limits) Plan: -Respiratory panel was negative. With Acapella she was able to cough up some sputum which has been sent to the lab - Will d/c IV ceftriaxone & doxycycline, and continue with doxycycline PO BID at this time. She is a very difficult stick, and her current IV is not functioning well, will d/c IV at this time -Continue with nebulizers and will taper prednisone again today. -Supplement low magnesium with oral supplementation for now - Anemia/H&H remains low but stable. Stool for occult blood is positive, so outpatient EGD/Colonoscopy would be appropriate, brandyn she has a very slow bleed, and remains stable. -No change in the remainder of her home medications for her chronic medical conditions. Dispo: Anticipate d/c tomorrow to home at [facility] if she does well on PO antibiotics VS,Fishbone, I+O VS, Fishbone, I+O Laboratory Tests 02/15/21 12:00 02/16/21 05:42 Vital Signs Date Time Temp Pulse Resp B/P (MAP) Pulse Ox O2 Delivery O2 Flow Rate FiO2 02/16/21 06:00 97.0 85 17 115/59 (77) 94 Room Air 02/13/21 15:45 1.0 I&O- Last 24 Hours up to 6 AM 02/16/21 06:00 Intake Total 1445 ml Output Total 1850 ml Balance -405 ml JAREN NGUYEN DO Feb 16, 2021 10:33
[2021-02-16 14:00] VITALS: BP 138/59
[2021-02-16] MEDS: RIVAROXABAN 15 MG TAB (XARELTO) PO SCH (17:43)
[2021-02-16] MEDS: LATANOPROST 0.005% OPHTH SOLN 2.5 ML OU SCH (20:13)
[2021-02-16 22:00] VITALS: BP 126/61
[2021-02-17] MEDS: IPRATROPIUM 0.5MG/ALBUTEROL 2.5MG INH SOL UD 3ML (DUONEB) INH SCH ×3 (00:41→07:46)
[2021-02-17] MEDS: SLF 3 ML SYR IV SCH (05:08)
[2021-02-17] MEDS: DOXYCYCLINE HYCLATE 100MG TABLET PO SCH (05:27)
[2021-02-17 06:00] VITALS: BP 142/65
[2021-02-17] MEDS: HumaLOG INSULIN (NovoLOG) PER UNIT SC SCH (07:30)
[2021-02-17] MEDS: ADVAIR HFA 230/21MCG INHALER INH SCH (07:46)
[2021-02-17] MEDS: allopurinoL 100 MG TAB PO SCH (07:51)
[2021-02-17] MEDS: SODIUM BICARBONATE 325 MG TAB PO SCH (07:52)
[2021-02-17] MEDS: SUCRALFATE 1 GM TAB PO SCH (07:52)
[2021-02-17] MEDS: SENOKOT S TAB PO SCH (07:52)
[2021-02-17] MEDS: predniSONE 20 MG TAB PO SCH (07:52)
[2021-02-17] MEDS: PANTOPRAZOLE 40MG TAB (PROTONIX) PO SCH (07:52)
[2021-02-17] MEDS: FERROUS GLUCONATE 324 MG TAB PO SCH (07:53)
[2021-02-17] MEDS: BRINZOLAMIDE 1 % OPHTH SUSP (AZOPT) 10ML OU SCH (07:54)
[2021-02-17] MEDS ORDERED: PRED20TA PO (08:10)
[2021-02-17] MEDS ORDERED: DOXY100T PO (08:10)
[2021-02-17 08:15] LABS: BASO % 0.2 % (0.0-1.0); EOS % 0.2 % (0.0-3.0); HEMATOCRIT 27.4 % (36.0-47.0); HEMOGLOBIN 8.6 g/dl (12.0-15.5); LYMPH # 2.8 10^3/uL (1.5-5.0); LYMPH % 21.6 % (24.0-44.0); MEAN CORPUSCULAR HEMOGLOBIN 30.5 pg (27.0-33.0); MEAN CORPUSCULAR HGB CONC 31.4 g/dl (32.0-36.5); MEAN CORPUSCULAR VOLUME 97.2 fl (80.0-96.0); MONO # 1.1 10^3/uL (0.0-0.8); MONO % 8.6 % (2.0-8.0); NEUTROPHILS # 8.8 10^3/uL (1.5-8.5); NEUTROPHILS % 68.8 % (36.0-66.0); PLATELET COUNT, AUTOMATED 257 10^3/uL (150-450); RED BLOOD COUNT 2.82 10^6/uL (4.00-5.40); WHITE BLOOD COUNT 12.8 10^3/uL (4.0-10.0)
[2021-02-17 08:49] LABS: ALBUMIN 2.5 GM/DL (3.2-5.2); BILIRUBIN,TOTAL 0.3 MG/DL (0.2-1.0); CALCIUM LEVEL 8.8 MG/DL (8.8-10.2); CREATININE FOR GFR 1.36 MG/DL (0.55-1.30); GLOMERULAR FILTRATION RATE 39.5 (>32); MAGNESIUM LEVEL 1.6 MG/DL (1.8-2.4); POTASSIUM SERUM 3.6 MEQ/L (3.5-5.1)
[2021-02-17] MEDS ORDERED: MAGNESIUM OXIDE 400MG TAB (MAG-OX) PO SCH (09:00)
--- NOTE | 2021-02-17 14:43 | ECHO ---
ECHOCARDIOGRAM DATE OF PROCEDURE: 02/14/2021 Age: 85 Gender: Height: Weight: REFERRING PROVIDER: Dr. John Slade. PATIENT LOCATION: Room 3214. REASON FOR THE STUDY: Sepsis. 2D MEASUREMENTS: IVS 0.78 cm LV 5.1 cm LVPW 0.89 cm LA 3.5 cm Aorta 3.2 cm IVC 2.3 cm DOPPLER MEASUREMENT: Mitral E 1.3 Mitral A 1.3 with a ratio of 1.0 Maximum tricuspid valve velocity 3.1 m/s 2D COMMENTS: 1. Normal left ventricular size, wall thickness, and normal global left ventricular systolic function. The estimated left ventricular systolic ejection fraction is 60 to 65%. 2. Normal left atrium. The right atrium and the right ventricle appear to be normal. 3. The atrial septum appeared to be normal without evidence of defect or shunt. 4. Normal aortic root. 5. No pericardial effusion seen. 6. Mildly calcified aortic valve with normal leaflet excursion. Mildly calcified mitral annulus with normal appearing mitral valve leaflet motion. Normal tricuspid valve and pulmonic valve. The proximal pulmonary artery branches were not well visualized. 7. The inferior vena cava was dilated, central venous pressure mildly elevated. DOPPLER: It detects mild to moderate mitral regurgitation and moderate tricuspid regurgitation. Mild pulmonic regurgitation also detected. The calculated pulmonary artery systolic pressure varies between 40 to 50 mmHg. Abnormal relaxation pattern was noted across the mitral valve annulus. IMPRESSION: 1. Normal global left ventricular systolic function. There were some features of grade 1 left ventricular diastolic dysfunction manifested by abnormal relaxation. 2. Aortic valve sclerosis without stenosis or aortic regurgitation. 3. Mitral annulus calcification with mild to moderate mitral regurgitation. 4. Moderate tricuspid regurgitation with moderate pulmonary hypertension. 5. Mild pulmonic regurgitation.
--- NOTE | 2021-02-17 15:54 | DS.PDOC ---
Discharge Summary General Date of Admission Feb 13, 2021 at 13:29 Date of Discharge 02/17/2021 Discharge Summary PRIMARY CARE PHYSICIAN: Dr. Gilda Wang DO ATTENDING AT TIME OF DISCHARGE: Dr. Fady Nguyen DO DISCHARGE DIAGNOS(E)S: Community acquired pneumonia Sepsis Leukocytosis History of DVT Diabetes mellitus type 2 Chronic kidney disease Hypercalcemia Macrocytic anemia, iron panel consistent with anemia of chronic disease (B12 and folate within normal limits) HPI & HOSPITAL COURSE: 84-year-old female presenting to the emergency department with 2 days weakness, increased shortness of breath, cough, sputum production. Upon arrival to the ED she was found to have hypotension, leukocytosis, anemia, lactic acidosis and a multifocal pneumonia and small right pleural effusion on CT of the chest. She was found to be in sepsis secondary to community-acquired pneumonia. She was then treated with IV cephalexin and doxycycline, as well as prednisone. One set of initial blood cultures was positive for Staphylococcus Warneri, the other was negative, and repeat blood cultures the following day have been negative with no growth in over 72 hours. Respiratory panel was negative for any etiology. On 02/15/2021 she finally was able to produce a sputum sample after using Acapella device, the results of this sputum cultures still pending. Nevertheless, she has shown remarkable clinical and laboratory improvement. A repeat COVID-19 swab was once again negative, and she certainly appears stable and ready for discharge at this time. PHYSICAL EXAMINATION ON DISCHARGE: GENERAL: Awake, alert, oriented 3. CARDIOVASCULAR EXAMINATION: Regular rate and rhythm, with no rubs, gallops, or murmur. RESPIRATORY EXAMINATION: She still does have some inspiratory and expiratory wheeze, however this seems to be back to her baseline. ABDOMINAL EXAMINATION: Soft, nontender, nondistended. Bowel sounds present. EXTREMITIES: No clubbing or edema noted. 2+ pulses in the radial bilaterally. DISPOSITION: Home to [facility] assisted living DISCHARGE INSTRUCTIONS: She already has an appointment with her primary care physician tomorrow, therefore she was encouraged to keep this appointment. Diet as tolerated. Activity as tolerated. If symptoms return, or if you experience worsening of your symptoms, please call your doctor or return to the emergency department. DISCHARGE MEDICATIONS: Continue taking doxycycline 100 mg by mouth twice a day, and prednisone 20 mg daily for an additional 5 days. Then discontinue both. ITEMS THAT NEED OUTPATIENT FOLLOWUP: Sputum culture is still pending Vital Signs/I&Os Vital Signs Date Time Temp Pulse Resp B/P (MAP) Pulse Ox O2 Delivery O2 Flow Rate FiO2 02/17/21 06:00 97.6 97 18 142/65 (90) 92 Room Air 02/13/21 15:45 1.0 I&O- Last 24 Hours up to 6 AM 02/17/21 06:00 Intake Total 1880 ml Output Total 2150 ml Balance -270 ml Laboratory Data Labs 24H Laboratory Tests 2 02/16/21 16:29: Bedside Glucose (Misc Panel) 192H 02/16/21 19:49: Bedside Glucose (Misc Panel) 147H 02/17/21 07:19: Immature Granulocyte % (Auto) 0.6, Neutrophils (%) (Auto) 68.8H, Lymphocytes (%) (Auto) 21.6L, Monocytes (%) (Auto) 8.6H, Eosinophils (%) (Auto) 0.2, Basophils (%) (Auto) 0.2, Neutrophils # (Auto) 8.8H, Lymphocytes # (Auto) 2.8, Monocytes # (Auto) 1.1H, Eosinophils # (Auto) 0.0, Basophils # (Auto) 0.0, Nucleated Red Blood Cells % (auto) 0.0, Anion Gap 11, Glomerular Filtration Rate 39.5, Calcium Level 8.8, Magnesium Level 1.6L, Total Bilirubin 0.3, Aspartate Amino Transf (AST/SGOT) 12, Alanine Aminotransferase (ALT/SGPT) 18, Alkaline Phosphatase 73, Total Protein 5.0L, Albumin 2.5L, Albumin/Globulin Ratio 1.0L 02/17/21 07:31: Bedside Glucose (Misc Panel) 102 02/17/21 08:07: Coronavirus (COVID-19)(PCR) NEGATIVE 02/17/21 11:45: Bedside Glucose (Misc Panel) 158H CBC/BMP Laboratory Tests 02/17/21 07:19 FSBS Laboratory Tests Test 02/16/21 16:29 02/16/21 19:49 02/17/21 07:31 02/17/21 11:45 Range/Units Bedside Glucose (Misc Panel) 192 147 102 158 83-110 MG/DL Microbiology Microbiology 02/16/21 Stool Occult Blood (ROBLES) - Final, Complete 02/15/21 Gram Stain - Final, Resulted 02/15/21 Sputum Culture, Resulted Pending 02/15/21 Respiratory Virus Panel (PCR) (ROBLES) - Final, Complete 02/14/21 Blood Culture - Preliminary, Resulted No Growth after 72 hours. All specime... 02/14/21 Blood Culture - Preliminary, Resulted No Growth after 72 hours. All specime... 02/13/21 Blood Culture - Preliminary, Resulted No Growth after 72 hours. All specime... 02/13/21 Blood Culture - Final, Complete Staphylococcus Warneri Discharge Medications Scheduled Acetaminophen (Tylenol Extra Strength) 500 Mg Tablet, 1,000 MG PO BID, (Reported) Allopurinol (Allopurinol) 100 Mg Tablet, 100 MG PO DAILY, (Reported) Bimatoprost (Lumigan) 0.01% 2.5ML Drops, 1 DROP OU QHS, (Reported) Brinzolamide (Azopt) 1% 10ML Drops.susp, 1 DROP OU BID, (Reported) Calcitriol (Calcitriol) 0.25 Mcg Capsule, 0.25 MCG PO DAILY, (Reported) Cholecalciferol (Vitamin D3) (Vitamin D3) 50 Mcg Capsule, 50 MCG PO DAILY, (Reported) Doxycycline Hyclate (Doxycycline Hyclate) 100 Mg Tablet, 100 MG PO BID Ferrous Gluconate (Ferrous Gluconate) 324 Mg Tablet, 324 MG PO DAILY, (Reported) Pantoprazole Sodium (Pantoprazole Sodium) 40 Mg Tablet.dr, 40 MG PO DAILY, (Reported) Prednisone (Prednisone) 20 Mg Tablet, 20 MG PO DAILY Rivaroxaban (Xarelto) 15 Mg Tablet, 15 MG PO QPM, (Reported) 1700 Salmeterol/Fluticasone (Advair 500-50 Diskus) 1 Each Blst.w.dev, 1 PUFF INH BID, (Reported) Sennosides/Docusate Sodium (Senna-S Tablet) 1 Each Tablet, 2 TAB PO DAILY, (Reported) Sodium Bicarbonate (Sodium Bicarbonate) 325 Mg Tablet, 325 MG PO BID, (Reported) Sucralfate (Sucralfate) 1 Gm Tablet, 1 GM PO AC, (Reported) Vit C/E/Zn/Coppr/Lutein/Zeaxan (Preservision Areds 2 Softgel) 1 Each Capsule, 1 CAP PO BID, (Reported) Scheduled PRN Acetaminophen (Acetaminophen ER) 650 Mg Tablet.er, 650 MG PO Q8H PRN for PAIN, (Reported) Albuterol Sulf (Albuterol Sulfate) 2.5 Mg/3 Ml Vial.neb, 2.5 MG INH QID PRN for SHORTNESS OF BREATH, (Reported) Diclofenac Sodium (Voltaren) 100 Gm Gel..gram., 1 GRAM TOP QID PRN for MUSCLE ACHE, (Reported) Magnesium Hydroxide (Milk of Magnesia) 400 Mg/5 Ml Oral.susp, 2,400 MG PO DAILY PRN for CONSTIPATION, (Reported) Nitroglycerin (Nitrostat) 0.4 Mg Tab.subl, 0.4 MG SL NITRO PRN for CHEST PAIN, (Reported) Ondansetron HCl (Zofran) 4 Mg Tablet, 4 MG PO Q6H PRN for NAUSEA OR VOMITING, (Reported) Allergies Coded Allergies: carvedilol (Verified Allergy, Severe, difficulty breathing, 03/27/20) pitavastatin (Verified Allergy, Severe, anaphylaxis, 03/27/20) Penicillins (Verified Allergy, Intermediate, rash, 03/27/20) Quinolones (Verified Allergy, Intermediate, rash, 03/27/20) DG Inhibitors (Verified Adverse Reaction, Intermediate, kidney problems / cough, 03/27/20) dexamethasone (Verified Adverse Reaction, Intermediate, eyes burn, 1) dorzolamide (Verified Adverse Reaction, Intermediate, eyes burn, 02/13/21) neomycin (Verified Adverse Reaction, Intermediate, eyes burn, 02/13/21) polymyxin B (Verified Adverse Reaction, Intermediate, eyes burn, 02/13/21) timolol (Verified Adverse Reaction, Intermediate, eyes burn, 02/13/21) Wywqwcl-Izu-Lhd Reductase Inhibitor (Verified Adverse Reaction, Mild, myalgia, 03/27/20) colesevelam (Verified Adverse Reaction, Mild, myalgia, 03/27/20) ezetimibe (Verified Adverse Reaction, Mild, myalgia, 03/27/20) losartan (Verified Adverse Reaction, Mild, nausea / no appetite, 03/27/20) FADY NGUYEN 14, 2021 15:54
== END 2021-02-17 11:50 | disposition home health service (06) | DRG 871 ==
LOC: M ED 08:40 → EDBD 08:40 → M ED INP 13:29 → ENRESERV 14:10 → M PCU 16:09 → M MSPAV 02-14 19:35
PROVIDERS: ADMIT Internal Medicine; ATTEND Neuromusculoskeletal Medicine & OMM
DX: A41.9 Sepsis, unspecified organism (principal); J18.9 Pneumonia, unspecified organism; J44.0 Chronic obstructive pulmonary disease with (acute) lower respiratory infection; N18.30 Chronic kidney disease, stage 3 unspecified; E11.22 Type 2 diabetes mellitus with diabetic chronic kidney disease; R65.20 Severe sepsis without septic shock; I25.10 Atherosclerotic heart disease of native coronary artery without angina pectoris; I44.1 Atrioventricular block, second degree; K21.9 Gastro-esophageal reflux disease without esophagitis; H40.9 Unspecified glaucoma; E83.52 Hypercalcemia; H35.30 Unspecified macular degeneration; D63.8 Anemia in other chronic diseases classified elsewhere; Z66 Do not resuscitate; K44.9 Diaphragmatic hernia without obstruction or gangrene; Z79.01 Long term (current) use of anticoagulants; Z79.899 Other long term (current) drug therapy; Z88.0 Allergy status to penicillin; Z86.718 Personal history of other venous thrombosis and embolism; Z88.1 Allergy status to other antibiotic agents; Z95.0 Presence of cardiac pacemaker; Z88.8 Allergy status to other drugs, medicaments and biological substances; Z95.5 Presence of coronary angioplasty implant and graft; Z90.49 Acquired absence of other specified parts of digestive tract; Z95.828 Presence of other vascular implants and grafts; Z98.41 Cataract extraction status, right eye; Z98.42 Cataract extraction status, left eye; Z20.822 Contact with and (suspected) exposure to COVID-19

== ENCOUNTER 2021-03-07 11:56 | Inpatient (IN) | payer MEDICARE ==
[~2021-03-07] VITALS: Ht 170.2 cm; Wt 61.7 kg
[~2021-03-07 11:56] MED LIST changes: +ACET650T15 PO; +MILKSUS3 PO; +SENN1TAB41 PO; +SODI325T9 PO; +SUCR1TAB56 PO; +VOLT1GEL15 TOP; +ZOFR4TAB16 PO
--- NOTE | 2021-03-07 13:30 | REP ---
INDICATION: DYSPNEA/COUGH. COMPARISON: Multiple the latest 03/27/2020 TECHNIQUE: Portable FINDINGS: The technique utilized in obtaining the radiograph has magnified the cardiac silhouette and accentuated the interstitial markings. The cardiomediastinal silhouette is unchanged. There is mild cardiomegaly accentuated by technique. The dual chamber bipolar pacemaker leads are unchanged. There are new asymmetric and discoid opacities seen in the lung bases and right upper lobe. There is mild bilateral CP angle blunting also representing a change from the prior exam. IMPRESSION: New asymmetric opacities as described above consistent with patchy pneumonia. Follow-up is recommended. Consider chest CT so it can be compared to the prior chest CT of 02/13/2021 if clinically relevant. <Electronically signed by Feliz Chester > 03/07/21 [id number]
[2021-03-07 14:24] LABS: BASO % 0.2 % (0.0-1.0); HEMATOCRIT 30.4 % (36.0-47.0); HEMOGLOBIN 9.5 g/dl (12.0-15.5); LYMPH # 1.2 10^3/uL (1.5-5.0); LYMPH % 5.7 % (24.0-44.0); MEAN CORPUSCULAR HEMOGLOBIN 30.7 pg (27.0-33.0); MEAN CORPUSCULAR HGB CONC 31.3 g/dl (32.0-36.5); MEAN CORPUSCULAR VOLUME 98.4 fl (80.0-96.0); NEUTROPHILS # 17.6 10^3/uL (1.5-8.5); NEUTROPHILS % 87.8 % (36.0-66.0); PLATELET COUNT, AUTOMATED 234 10^3/uL (150-450); RED BLOOD COUNT 3.09 10^6/uL (4.00-5.40); WHITE BLOOD COUNT 20.1 10^3/uL (4.0-10.0)
[2021-03-07 14:51] LABS: ALBUMIN 2.7 GM/DL (3.2-5.2); ALT/SGPT 9 U/L (12-78); BILIRUBIN,DIRECT 0.2 MG/DL (0.0-0.2); BILIRUBIN,TOTAL 0.6 MG/DL (0.2-1.0); BLOOD UREA NITROGEN 34 MG/DL (7-18); CALCIUM LEVEL 9.1 MG/DL (8.8-10.2); CARBON DIOXIDE LEVEL 24 MEQ/L (21-32); CHLORIDE LEVEL 107 MEQ/L (98-107); CK-MB VALUE MASS < 1.0 NG/ML (<3.6); CPK CREATINE PHOSPHOKINASE 25 U/L (26-192); CREATININE FOR GFR 1.89 MG/DL (0.55-1.30); GLUCOSE, FASTING 131 MG/DL (70-100); POTASSIUM SERUM 4.6 MEQ/L (3.5-5.1); SODIUM LEVEL 138 MEQ/L (136-145); TOTAL PROTEIN 5.3 GM/DL (6.4-8.2); TROPONIN I < 0.02 NG/ML (< 0.10)
[2021-03-07 14:52] LABS: NT-PRO BNP 3884 PG/ML (<450)
[2021-03-07] MEDS ORDERED: FUROSEMIDE 40MG/4ML VIAL (J1940) IV ONE (15:25)
[2021-03-07] MEDS ORDERED: DICL1GEL3 TOP (16:13)
--- NOTE | 2021-03-07 16:17 | REP ---
INDICATION: pneumonia COMPARISON: 02/13/2021 TECHNIQUE: Axial noncontrast images from the thoracic inlet to the upper abdomen with coronal and sagittal reformations. This CT examination was performed using the following dose reduction techniques: Automated exposure control, adjustment of mA and/or kv according to the patient's size, and use of iterative reconstruction technique. FINDINGS: Primarily scattered right-sided atelectasis and consolidation with few areas of nodular consolidation and small right pleural reaction. Associated reactive mediastinal and right hilar adenopathy noted. Tracheobronchial tree is patent. No pneumothorax. Underlying chronic COPD/emphysematous disease remains essentially unchanged. Atherosclerotic changes to the thoracic aorta and coronary arteries noted including mild cardiomegaly and small pericardial effusion unchanged from prior examination. Two lead pacemaker in satisfactory position. Musculoskeletal structures demonstrate degenerative changes without acute osseous abnormality. IMPRESSION: Scattered right-sided atelectasis and infiltrates including small scattered nodular infiltrates with trace right pleural effusion and reactive adenopathy. Findings are relatively similar to prior examination although possibly mildly improved. Differential diagnosis includes multifocal pneumonia and follow-up to resolution is recommended. <Electronically signed by Lars Tiwari > 03/07/21 [id number]
--- NOTE | 2021-03-07 16:24 | HPEPDOC ---
[facility] Medical History & Physical Date of Admission Mar 07, 2021 Date of Service: Mar 07, 2021 History and Physical CHIEF COMPLAINT: Cough and subjective fever HISTORY OF PRESENT ILLNESS: 85-year-old female resident at [facility] who asked to come to the emergency department because she's been having a troublesome cough as well as subjective fevers for the past 2 days. She says she was feeling well up until 2 days ago when her cough started becoming more frequent and she feels more mucus buildup that she has a hard time getting rid of. She says her sputum is white in color and she feels feverish. She denies chest pain or palpitations. Surprisingly she says she is not short of breath her breathing is close to her baseline. Denies any new wheezing. Denies abdominal pain denies dysuria denies chills. Denies increased lower extremity swelling in fact she says her lower extremities are the least swollen that been in a long time. Chest x-ray evaluation, shows new consultation from prior and recommend CT chest was ordered by ED staff. Patient about to go get her CT now patient will be admitted to the hospital service for further medical evaluation and management. Of note patient was just here a few weeks ago diagnosed with sepsis and pneumonia found to be due to pseudomonas. 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 REVIEW OF SYSTEMS: 10 point review of systems complete all negative otherwise stated in HPI HOME MEDICATIONS: Please see below. PHYSICAL EXAMINATION: Constitutional: Awake and alert, in no apparent distress elderly frail-appearing ENT: Sclera are clear. Mucosa is moist. Respiratory: Lungs diminished breath sounds bilaterally with some rhonchi greater on the right side. No respiratory distress. Cardiovascular: Paced rate 69 on monitor. Regular rhythm. Gastrointestinal: Abdomen is soft, non distended, non tender, BS present. Musculoskeletal: No lower extremity edema. Neurologic: No focal neurological deficit. Mental Status: A&O x3, normal affect Skin: No visible rashes LABORATORY DATA: See below. IMAGING: See chart MICROBIOLOGY: Please see below. ASSESSMENT/PLAN 85-year-old female recently admitted with sepsis and pneumonia presents because of cough and subjective fevers at the [facility] chest x-ray suggestive of possibly new infiltrate previously she had Pseudomonas. CT chest is pending. Patient admitted for further medical workup and management. Will be treated with presumptive return of Pseudomonas pneumonia. # Likely Pneumonia: probably pseudomonas again. Follow sputum cultures. She has subjective fevers and leukocytosis 20.1 on admission. Follow-up chest CT to compare to CT from early February. Follow-up blood cultures. Incentive spirometry. Guaifenesin for cough. IV meropenem. #GUY: Cr1.89 on admit. Fu FeNa. Trial of IVFs NS and recheck kidney function in the morning. Avoid nephrotoxins. # Congestive heart failure: Not in exacerbation despite elevated BNP. Possibly elevated from CKD. Euvolemic on exam. Continue home medications. # COPD: Not in exacerbation. Continue home meds and inhalers. # Anemia: Close to baseline. Likely anemia of chronic disease. Continue to monitor. Follow-up with PCP. # DM: ISS. Frequent Accu-Cheks. Hypoglycemic precautions. # hx B/L DVTs: Continue Xarelto # CAD s/p stents: continue ASA, statin. # Gout: hold allopurinol. # GERD: protonix # DVT prophylaxis: Xarelto A Yousef Hospitalist Vital Signs Vital Signs Date Time Temp Pulse Resp B/P (MAP) Pulse Ox O2 Delivery O2 Flow Rate FiO2 03/07/21 14:45 110/56 (74) 95 Nasal Cannula 2.0 03/07/21 14:31 70 03/07/21 12:26 20 03/07/21 12:21 97.7 Laboratory Data Labs 24H Laboratory Tests 2 03/07/21 13:22: POC pH (Misc Panel) 7.331L, POC Base Excess (Misc Panel) -6.0L, POC Saturated Percent O2 (Misc) 98, POC pO2 (Misc Panel) 104.0, POC pCO2 (Misc Panel) 37.3, POC HCO3 (Misc Panel) 19.7L, POC Total CO2 (Misc Panel) 21.0L 03/07/21 13:25: Immature Granulocyte % (Auto) 1.3, Neutrophils (%) (Auto) 87.8H, Lymphocytes (%) (Auto) 5.7L, Monocytes (%) (Auto) 5.0, Eosinophils (%) (Auto) 0.0, Basophils (%) (Auto) 0.2, Neutrophils # (Auto) 17.6H, Lymphocytes # (Auto) 1.2L, Monocytes # (Auto) 1.0H, Eosinophils # (Auto) 0.0, Basophils # (Auto) 0.0, Nucleated Red Blood Cells % (auto) 0.0, Anion Gap 7L, Glomerular Filtration Rate 27.0L, Lactic Acid Level 0.8, Calcium Level 9.1, Total Bilirubin 0.6, Direct Bilirubin 0.2, Aspartate Amino Transf (AST/SGOT) 8, Alanine Aminotransferase (ALT/SGPT) 9L, Alkaline Phosphatase 81, Total Creatine Kinase 25L, Creatine Kinase MB < 1.0, Creatine Kinase MB Relative Index 4.00, Troponin I < 0.02, WS-Znc-D-Type Natriuretic Peptide 3884H, Total Protein 5.3L, Albumin 2.7L, Albumin/Globulin Ratio 1.0L CBC/BMP Laboratory Tests 03/07/21 13:25 Microbiology Microbiology 03/07/21 Blood Culture, Received Pending 03/07/21 Respiratory Virus Panel (PCR) (ROBLES) - Final, Complete 03/07/21 Blood Culture, Received Pending Home Medications Scheduled Acetaminophen (Tylenol Extra Strength) 500 Mg Tablet, 1,000 MG PO BID Allopurinol (Allopurinol) 100 Mg Tablet, 100 MG PO DAILY Bimatoprost (Lumigan) 0.01% 2.5ML Drops, 1 DROP OU QHS Brinzolamide (Azopt) 1% 10ML Drops.susp, 1 DROP OU BID Calcitriol (Calcitriol) 0.25 Mcg Capsule, 0.25 MCG PO DAILY Cholecalciferol (Vitamin D3) (Vitamin D3) 50 Mcg Capsule, 50 MCG PO DAILY Ferrous Gluconate (Ferrous Gluconate) 324 Mg Tablet, 324 MG PO DAILY Pantoprazole Sodium (Pantoprazole Sodium) 40 Mg Tablet.dr, 40 MG PO DAILY Rivaroxaban (Xarelto) 15 Mg Tablet, 15 MG PO QPM 1700 Salmeterol/Fluticasone (Advair 500-50 Diskus) 1 Each Blst.w.dev, 1 PUFF INH BID Sennosides/Docusate Sodium (Senna-S Tablet) 1 Each Tablet, 2 TAB PO DAILY Sodium Bicarbonate (Sodium Bicarbonate) 325 Mg Tablet, 325 MG PO BID Sucralfate (Sucralfate) 1 Gm Tablet, 1 GM PO AC Vit C/E/Zn/Coppr/Lutein/Zeaxan (Preservision Areds 2 Softgel) 1 Each Capsule, 1 CAP PO BID Scheduled PRN Acetaminophen (Acetaminophen ER) 650 Mg Tablet.er, 650 MG PO Q8H PRN for PAIN Albuterol Sulf (Albuterol Sulfate) 2.5 Mg/3 Ml Vial.neb, 2.5 MG INH QID PRN for SHORTNESS OF BREATH Diclofenac Sodium (Diclofenac Sodium) 1% 100GM Gel..gram., 4 GM TOP QID PRN for PAIN APPLY TO AREAS OF MUSCLE ACHE Magnesium Hydroxide (Milk of Magnesia) 400 Mg/5 Ml Oral.susp, 2,400 MG PO DAILY PRN for CONSTIPATION Nitroglycerin (Nitrostat) 0.4 Mg Tab.subl, 0.4 MG SL NITRO PRN for CHEST PAIN Ondansetron HCl (Zofran) 4 Mg Tablet, 4 MG PO Q6H PRN for NAUSEA OR VOMITING Allergies Coded Allergies: carvedilol (Verified Allergy, Severe, difficulty breathing, 03/07/21) pitavastatin (Verified Allergy, Severe, anaphylaxis, 03/07/21) Penicillins (Verified Allergy, Intermediate, rash, 03/07/21) Quinolones (Verified Allergy, Intermediate, rash, 03/07/21) DG Inhibitors (Verified Adverse Reaction, Intermediate, kidney problems / cough, 03/07/21) dexamethasone (Verified Adverse Reaction, Intermediate, eyes burn, 03/07/21) dorzolamide (Verified Adverse Reaction, Intermediate, eyes burn, 03/07/21) neomycin (Verified Adverse Reaction, Intermediate, eyes burn, 03/07/21) polymyxin B (Verified Adverse Reaction, Intermediate, eyes burn, 03/07/21) timolol (Verified Adverse Reaction, Intermediate, eyes burn, 03/07/21) Aacscrp-Pvl-Hsc Reductase Inhibitor (Verified Adverse Reaction, Mild, myalgia, 03/07/21) colesevelam (Verified Adverse Reaction, Mild, myalgia, 03/07/21) ezetimibe (Verified Adverse Reaction, Mild, myalgia, 03/07/21) losartan (Verified Adverse Reaction, Mild, nausea / no appetite, 03/07/21) A-FIB/CHADSVASC A-FIB History Current/History of A-Fib/PAF?: No YOUSESAÚL Oro MD Mar 07, 2021 16:24
[2021-03-07] MEDS ORDERED: NS 1,000 ML IV SCH (16:30)
[2021-03-07] MEDS ORDERED: ACETAMINOPHEN 650MG ER TAB (TYLENOL ARTHRITIS) PO PRN (16:35)
[2021-03-07] MEDS ORDERED: DEXTROSE 50% 50 ML SYRINGE IV PRN (16:35)
[2021-03-07] MEDS ORDERED: GLUCAGON INJ 1MG VIAL SC PRN (16:35)
[2021-03-07] MEDS ORDERED: guaiFENesin SYRUP 200 MG/10 ML UDC PO PRN (16:35)
[2021-03-07] MEDS ORDERED: ONDANSETRON 4 MG TAB PO PRN (16:35)
[2021-03-07] MEDS ORDERED: GLUCOSE 4GM CHEW TABLET PO PRN (16:35)
[2021-03-07] MEDS ORDERED: NITROGLYCERIN 0.4 MG SUBL TABLET SL PRN (16:35)
[2021-03-07] MEDS ORDERED: MEROPENEM INJ 1 GM in IV 1 EA IV STA (16:37)
[2021-03-07 19:00] VITALS: BP 141/63
[2021-03-07 20:00] VITALS: BP 117/53
[2021-03-07] MEDS: HumaLOG INSULIN (NovoLOG) PER UNIT SC SCH ×2 (20:10)
[2021-03-07] MEDS: RIVAROXABAN 15 MG TAB (XARELTO) PO SCH (20:11)
[2021-03-07] MEDS: ACETAMINOPHEN 500 MG TAB PO SCH (20:12)
--- NOTE | 2021-03-07 20:25 | ECGEPIP ---
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
[2021-03-07] MEDS: SUCRALFATE 1 GM TAB PO SCH (21:24)
[2021-03-07] MEDS: BRINZOLAMIDE 1 % OPHTH SUSP (AZOPT) 10ML OU SCH (21:24)
[2021-03-07] MEDS: SODIUM BICARBONATE 325 MG TAB PO SCH (21:24)
[2021-03-08] VITALS: BP 110/64
[2021-03-08] MEDS: ADVAIR HFA 230/21MCG INHALER INH SCH ×3 (00:51→20:02)
[2021-03-08 04:00] VITALS: BP 116/58
[2021-03-08] MEDS ORDERED: MEROPENEM INJ 1 GM in IV 1 EA IV SCH (04:00)
[2021-03-08 04:58] LABS: HEMATOCRIT 28.2 % (36.0-47.0); HEMOGLOBIN 8.6 g/dl (12.0-15.5); MEAN CORPUSCULAR HEMOGLOBIN 30.3 pg (27.0-33.0); MEAN CORPUSCULAR HGB CONC 30.5 g/dl (32.0-36.5); MEAN CORPUSCULAR VOLUME 99.3 fl (80.0-96.0); PLATELET COUNT, AUTOMATED 192 10^3/uL (150-450); RED BLOOD COUNT 2.84 10^6/uL (4.00-5.40); WHITE BLOOD COUNT 12.1 10^3/uL (4.0-10.0)
[2021-03-08 05:23] LABS: ALBUMIN 2.3 GM/DL (3.2-5.2); BILIRUBIN,TOTAL 0.4 MG/DL (0.2-1.0); CALCIUM LEVEL 8.9 MG/DL (8.8-10.2); CREATININE FOR GFR 1.78 MG/DL (0.55-1.30); TOTAL PROTEIN 5.8 GM/DL (6.4-8.2)
[2021-03-08 07:49] VITALS: BP 140/63
[2021-03-08] MEDS: SUCRALFATE 1 GM TAB PO SCH ×3 (08:21→17:23)
[2021-03-08] MEDS: FERROUS GLUCONATE 324 MG TAB PO SCH (08:21)
[2021-03-08] MEDS: SENOKOT S TAB PO SCH (08:22)
[2021-03-08] MEDS: SODIUM BICARBONATE 325 MG TAB PO SCH ×2 (08:22→21:26)
[2021-03-08] MEDS: CALCITRIOL 0.25 MCG CAP (S0169) PO SCH (08:22)
[2021-03-08] MEDS: PANTOPRAZOLE 40MG TAB (PROTONIX) PO SCH (08:22)
[2021-03-08] MEDS: BRINZOLAMIDE 1 % OPHTH SUSP (AZOPT) 10ML OU SCH ×2 (08:22→20:45)
[2021-03-08] MEDS: ACETAMINOPHEN 500 MG TAB PO SCH ×2 (08:22→21:26)
[2021-03-08] MEDS: HumaLOG INSULIN (NovoLOG) PER UNIT SC SCH ×4 (09:02→20:41)
[2021-03-08 11:36] VITALS: BP 97/45
--- NOTE | 2021-03-08 12:03 | IPN ---
PROGRESS NOTE DATE: 03/08/2021 SUBJECTIVE: Gabby is seen in PCU. She is admitted with another pneumonia. Recently hospitalized for pseudomonas pneumonia. She feels better than yesterday. Having trouble coughing up her sputum, which is somewhat tenacious suggesting pseudomonas. 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 OBJECTIVE: VITAL SIGNS: Stable, afebrile. GENERAL APPEARANCE: She is alert and conversant in no distress. LUNGS: She has rales at the right base. HEART: Regular rhythm. ABDOMEN: Soft and nontender. EXTREMITIES: No peripheral edema. LABORATORY DATA: White count 12.1, hemoglobin 8.6, platelets 192,000. Sodium 140, potassium 4, BUN 37, creatinine 1.78, which is stable. Glucose of 100. IMPRESSION AND PLAN: 1. Pneumoperitoneum probably pseudomonas. She does have positive methicillin-resistant Staphylococcus aureus (MRSA) screen. She was recently hospitalized. I am hesitant to add vancomycin due to her chronic kidney disease. I would like to see how she responds clinically to the meropenem directed toward her pseudomonas. If her sputum grows out Staph, we will have to change this plan or if her condition declines, I would add MRSA coverage. 2. Diabetes. Sliding scale insulin coverage to be continued. 3. Chronic kidney disease stage III. Adjust medications based on renal function and avoid nephrotoxins when possible. Daily labs have been ordered. 4. History of deep vein thrombosis (DVT). She is on Xarelto 15 mg daily, which she will continue.
[2021-03-08] MEDS: ALBUTEROL SULFATE 2.5 MG/0.5 ML INH NEB SOLN INH PRN (12:43)
[2021-03-08] MEDS: CALCIUM CARBONATE 500 MG CHEW U/D PO PRN ×2 (13:56→20:45)
[2021-03-08 15:03] LABS: CREATININE,RANDOM URINE 55.4 MG/DL
[2021-03-08 16:00] VITALS: BP 97/53
[2021-03-08] MEDS: RIVAROXABAN 15 MG TAB (XARELTO) PO SCH (17:23)
[2021-03-08] MEDS: MEROPENEM INJ 1 GM in IV 1 EA IV SCH (17:23)
[2021-03-08 20:00] VITALS: BP 104/55
[2021-03-09] VITALS (7 sets, daily range): BP systolic 111–142; BP diastolic 51–76; O2SAT 90
[2021-03-09] MEDS: MEROPENEM INJ 1 GM in IV 1 EA IV SCH ×2 (05:30→17:44)
[2021-03-09] MEDS: ADVAIR HFA 230/21MCG INHALER INH SCH ×2 (08:06→19:55)
[2021-03-09] MEDS: SODIUM BICARBONATE 325 MG TAB PO SCH ×2 (08:31→21:11)
[2021-03-09] MEDS: PANTOPRAZOLE 40MG TAB (PROTONIX) PO SCH (08:31)
[2021-03-09] MEDS: SENOKOT S TAB PO SCH (08:32)
[2021-03-09] MEDS: CALCITRIOL 0.25 MCG CAP (S0169) PO SCH (08:32)
[2021-03-09] MEDS: ACETAMINOPHEN 500 MG TAB PO SCH ×3 (08:32→21:41)
[2021-03-09] MEDS: FERROUS GLUCONATE 324 MG TAB PO SCH (08:32)
[2021-03-09] MEDS: HumaLOG INSULIN (NovoLOG) PER UNIT SC SCH ×4 (08:33→20:25)
[2021-03-09] MEDS: SUCRALFATE 1 GM TAB PO SCH ×3 (08:34→17:44)
[2021-03-09] MEDS: BRINZOLAMIDE 1 % OPHTH SUSP (AZOPT) 10ML OU SCH ×2 (08:39→21:11)
[2021-03-09] MEDS: RIVAROXABAN 15 MG TAB (XARELTO) PO SCH (17:44)
[2021-03-10 04:00] VITALS: BP 142/62
[2021-03-10] MEDS: MEROPENEM INJ 1 GM in IV 1 EA IV SCH (04:45)
[2021-03-10] MEDS: CALCIUM CARBONATE 500 MG CHEW U/D PO PRN (06:48)
[2021-03-10] MEDS: SUCRALFATE 1 GM TAB PO SCH ×3 (06:51→17:22)
[2021-03-10] MEDS: ADVAIR HFA 230/21MCG INHALER INH SCH ×2 (07:18→20:10)
[2021-03-10] MEDS: ALBUTEROL SULFATE 2.5 MG/0.5 ML INH NEB SOLN INH PRN (07:18)
[2021-03-10] MEDS: HumaLOG INSULIN (NovoLOG) PER UNIT SC SCH ×4 (07:30→20:58)
[2021-03-10 08:00] VITALS: BP 143/67
[2021-03-10] MEDS ORDERED: ceFAZolin SOD 1 GM in D5W MINI-BAG PLUS 50 ML IV SCH (08:00)
[2021-03-10] MEDS: ceFAZolin SOD 1 GM in D5W MINI-BAG PLUS 50 ML IV SCH ×2 (08:08→20:56)
[2021-03-10] MEDS: SENOKOT S TAB PO SCH (08:08)
[2021-03-10] MEDS: SODIUM BICARBONATE 325 MG TAB PO SCH ×2 (08:08→20:57)
[2021-03-10] MEDS: FERROUS GLUCONATE 324 MG TAB PO SCH (08:09)
[2021-03-10] MEDS: BRINZOLAMIDE 1 % OPHTH SUSP (AZOPT) 10ML OU SCH ×2 (08:09→20:59)
[2021-03-10] MEDS: CALCITRIOL 0.25 MCG CAP (S0169) PO SCH (08:09)
[2021-03-10] MEDS: PANTOPRAZOLE 40MG TAB (PROTONIX) PO SCH (08:09)
[2021-03-10] MEDS: ACETAMINOPHEN 500 MG TAB PO SCH ×2 (08:09→20:57)
--- NOTE | 2021-03-10 11:57 | IPN ---
PROGRESS NOTE DATE: 03/10/2021 SUBJECTIVE: Gabby feels a little better. Her culture came back showing Klebsiella. She also has a little contamination from yeast. We are de-escalating her antibiotic therapy, as she does not have pseudomonas. She feels a little better, but still not back to baseline. Still short of breath and coughing. OBJECTIVE: VITAL SIGNS: Afebrile. Vital signs stable. HEENT: She has some erythema of the tongue with a few white patches on the buccal mucosa. LUNGS: Scattered rhonchi and wheezes. HEART: Regular rhythm. ABDOMEN: Soft and nontender. EXTREMITIES: No peripheral edema. LABORATORY DATA: White count is 12.1, hemoglobin 8.6, platelets 192,000. Sodium 140, potassium 4.0, BUN 37, creatinine 1.78. Sputum culture grew out Klebsiella, as well as some yeast. IMPRESSION AND PLAN: 1. Pneumonia secondary to Klebsiella. We will stop the meropenem and change to Ancef 1 gram IV every 8 hours. I have ordered some follow-up labs. 2. Thrush. Mycelex troches ordered. 3. Diabetes. Continue sliding scale insulin. 4. Chronic kidney disease stage IV. Renal function is stable. Anticipate probable discharge mid week, perhaps or Wednesday.
[2021-03-10] MEDS: CLOTRIMAZOLE 10 MG TROCHE PO SCH ×3 (12:48→20:57)
[2021-03-10 16:00] VITALS: BP 127/60
[2021-03-10] MEDS: RIVAROXABAN 15 MG TAB (XARELTO) PO SCH (17:22)
[2021-03-10 20:00] VITALS: BP 135/63
[2021-03-11] MEDS: CLOTRIMAZOLE 10 MG TROCHE PO SCH ×3 (06:13→13:12)
[2021-03-11 06:22] VITALS: BP 162/72
[2021-03-11 06:40] LABS: HEMATOCRIT 27.4 % (36.0-47.0); HEMOGLOBIN 8.7 g/dl (12.0-15.5); MEAN CORPUSCULAR HEMOGLOBIN 30.5 pg (27.0-33.0); MEAN CORPUSCULAR HGB CONC 31.8 g/dl (32.0-36.5); MEAN CORPUSCULAR VOLUME 96.1 fl (80.0-96.0); PLATELET COUNT, AUTOMATED 302 10^3/uL (150-450); RED BLOOD COUNT 2.85 10^6/uL (4.00-5.40); WHITE BLOOD COUNT 5.6 10^3/uL (4.0-10.0)
[2021-03-11 06:58] LABS: CALCIUM LEVEL 8.9 MG/DL (8.8-10.2); CREATININE FOR GFR 1.09 MG/DL (0.55-1.30)
[2021-03-11] MEDS: ADVAIR HFA 230/21MCG INHALER INH SCH (07:17)
[2021-03-11] MEDS: CALCITRIOL 0.25 MCG CAP (S0169) PO SCH (08:14)
[2021-03-11] MEDS: PANTOPRAZOLE 40MG TAB (PROTONIX) PO SCH (08:14)
[2021-03-11] MEDS: FERROUS GLUCONATE 324 MG TAB PO SCH (08:14)
[2021-03-11] MEDS: HumaLOG INSULIN (NovoLOG) PER UNIT SC SCH ×2 (08:14→13:13)
[2021-03-11] MEDS: SENOKOT S TAB PO SCH (08:14)
[2021-03-11] MEDS: SUCRALFATE 1 GM TAB PO SCH ×2 (08:14→13:12)
[2021-03-11] MEDS: SODIUM BICARBONATE 325 MG TAB PO SCH (08:14)
[2021-03-11] MEDS: BRINZOLAMIDE 1 % OPHTH SUSP (AZOPT) 10ML OU SCH (08:15)
[2021-03-11] MEDS: ACETAMINOPHEN 500 MG TAB PO SCH (08:15)
[2021-03-11] MEDS: ceFAZolin SOD 1 GM in D5W MINI-BAG PLUS 50 ML IV SCH (08:15)
[2021-03-11] MEDS ORDERED: CEPH500C PO (09:47)
[2021-03-11] MEDS ORDERED: CLOT10TR PO (09:47)
--- NOTE | 2021-03-11 10:28 | DSES ---
DISCHARGE SUMMARY DATE OF ADMISSION: 03/07/2021 DATE OF DISCHARGE: 03/11/2021 PRINCIPAL DIAGNOSIS: Pneumonia secondary to Klebsiella. SECONDARY DIAGNOSES: Oral thrush, type 2 diabetes, stage 4 chronic kidney disease. HISTORY: Patient was admitted with pneumonia. DETAILS OF ADMISSION HISTORY AND PHYSICAL/HOSPITAL COURSE: Patient was admitted to a medical bed, treated with I.V. Zosyn. Sputum culture grew Klebsiella. We changed her to Cefazolin. She had a little thrush, which was treated with Mycelex. The rest of her medical problems remained stable during her hospitalization. PHYSICAL EXAMINATION ON DISCHARGE: GENERAL: She is resting comfortably. VITAL SIGNS: Blood pressure 162/72, pulse 72, respiratory rate 20, 97% O2 saturation on room air. HEENT: No JVD. LUNGS: Clear. HEART: Regular rate and rhythm. ABDOMEN: Soft, nontender, no masses. EXTREMITIES: No peripheral edema. LABORATORY DATA ON DISCHARGE: White count 5.6, hemoglobin 8.7 which is stable, platelets 302,000. Sodium 141, potassium 4, BUN 27, creatinine 1.0, glucose 110. Procalcitonin level 4.7. Blood sugar were generally below 120. "Rapid" testing for Legionella, Strep pneumo done on admission are still pending by the time of discharge as are the "rapid" mycoplasma tests. Her MRSA screen was positive. Her sputum culture already grew out Klebsiella sensitive to Cefazolin. DISPOSITION: She is discharged home in improved and stable condition. She will follow-up with her primary care provider in a week. Activity as tolerated. No added salt diet. DISCHARGE MEDICATIONS: 1. Keflex 500 mg t.i.d. for 7 days. 2. She will continue Tylenol as needed. 3. Albuterol two puffs q.i.d. p.r.n. 4. Allopurinol 100 mg daily. 5. Her current eye drops. 6. Ferrous Gluconate 324 mg daily. 7. Milk of Magnesia as needed. 8. Nitrostat p.r.n. 9. Zofran as needed 4 mg every 6 hours p.r.n. 10.Protonix 40 mg daily. 11.Xarelto 15 mg q.h.s. 12.Advair 500/50 one inhalation b.i.d. 13.Senna-S two tablets daily. 14.Sodium bicarbonate 325 mg b.i.d. 15.Carafate 1 gram AC and HS. 16.PreserVision AREDS one capsule b.i.d. 17.New prescription for Mycelex Riana: She will dissolve in her mouth 4 times a day for 5 days. At the time of this dictation, there are no pending labs.
[2021-03-11 12:11] LABS: MYCOPLASMA PNEUMONIAE IgG <100 U/mL (0-99); MYCOPLASMA PNEUMONIAE IgM <770 U/mL (0-769)
--- NOTE | 2021-03-12 08:48 | IPN ---
PROGRESS NOTE DATE: 03/09/2021 SUBJECTIVE: Gabby feels a little better than yesterday. We are waiting for a sputum culture to come back, being treated for presumed Pseudomonas pneumonia. She has a positive MRSA screen but symptomatically has improved with treatment directed just towards the Pseudomonas. Her other medical problems are stable. PHYSICAL EXAM: Vital signs: Afebrile, vital signs stable. Lungs: A few wheezes. Heart: Regular rate and rhythm. Abdomen: Soft, nontender. Extremities: No peripheral edema. IMPRESSION: 1. Pneumonia, probably Pseudomonas. Wait for sputum culture. Continue current antibiotic therapy. 2. The rest of her medical problems are stable today.
[2021-03-12 14:09] LABS: BODY FLUID CULTURE Not indicated. (.); LEGIONELLA ANTIGEN URINE Negative (Negative); ORGANISM ID Not indicated. (.); SPECIMEN SOURCE Urine (.); URINE STREP PNEUMONIAE ANTIGEN Negative (Negative)
== END 2021-03-11 13:25 | DRG 178 ==
LOC: M ED 11:56 → EDBD 11:56 → EEVIPCON 16:39 → M ED INP 16:39 → ENRESERV 17:15 → M PCU 18:49 → M MSPAV 03-11 00:45
PROVIDERS: ADMIT Family Medicine; ATTEND Family Medicine
DX: J15.0 Pneumonia due to Klebsiella pneumoniae (principal); J44.0 Chronic obstructive pulmonary disease with (acute) lower respiratory infection; B37.0 Candidal stomatitis; N18.4 Chronic kidney disease, stage 4 (severe); E11.22 Type 2 diabetes mellitus with diabetic chronic kidney disease; I25.10 Atherosclerotic heart disease of native coronary artery without angina pectoris; K21.9 Gastro-esophageal reflux disease without esophagitis; I44.1 Atrioventricular block, second degree; H40.9 Unspecified glaucoma; I50.9 Heart failure, unspecified; D63.8 Anemia in other chronic diseases classified elsewhere; M10.9 Gout, unspecified; H35.30 Unspecified macular degeneration; Z66 Do not resuscitate; Z98.41 Cataract extraction status, right eye; Z98.42 Cataract extraction status, left eye; Z95.828 Presence of other vascular implants and grafts; Z86.718 Personal history of other venous thrombosis and embolism; Z95.0 Presence of cardiac pacemaker; Z95.5 Presence of coronary angioplasty implant and graft; Z90.49 Acquired absence of other specified parts of digestive tract; Z87.891 Personal history of nicotine dependence; Z79.01 Long term (current) use of anticoagulants; Z79.899 Other long term (current) drug therapy; Z88.0 Allergy status to penicillin; Z88.1 Allergy status to other antibiotic agents; Z88.8 Allergy status to other drugs, medicaments and biological substances

== ENCOUNTER 2021-03-13 19:01 | Inpatient (IN) | payer MEDICARE ==
[~2021-03-13] VITALS: Ht 167.6 cm; Wt 68.4 kg
[~2021-03-13 19:01] MED LIST changes: +CEPH500C PO; +CLOT10TR PO; +DICL1GEL3 TOP
[2021-03-13] MEDS ORDERED: ACETAMINOPHEN TAB 650MG DOSE (2X325MG) PO ONE (19:30)
--- NOTE | 2021-03-13 19:43 | REP ---
INDICATION: DYSPNEA/COUGH COMPARISON: 03/07/2021 TECHNIQUE: Portable AP view of the chest FINDINGS: The mediastinum and cardiac silhouette are stable and within normal limits for portable technique. The lung ernandez demonstrate chronic changes with superimposed bibasilar atelectasis/early consolidations. No effusion. No pneumothorax.. Skeletal structures are intact. IMPRESSION: Chronic changes with superimposed bibasilar atelectasis/early consolidations (right greater than left). <Electronically signed by Lars Tiwari > 03/13/211939
[2021-03-13 19:46] LABS: VENOUS BASE EXCESS -6.1 (-2.0-2.0); VENOUS HCO3 18.2 MEQ/L (23.0-27.0); VENOUS O2 SATURATION 89.3 % (60.0-80.0); VENOUS PARTIAL PRESSURE O2 58.9 mmHg (30.0-50.0); VENOUS PH 7.373 UNITS (7.330-7.430); VENOUS STANDARD HCO3 19.3 MEQ/L; VENOUS TOTAL CO2 19.2 MEQ/L (24.0-28.0)
[2021-03-13 19:54] LABS: BASO % 0.1 % (0.0-1.0); EOS # 0.1 10^3/uL (0.0-0.5); EOS % 0.7 % (0.0-3.0); HEMATOCRIT 31.3 % (36.0-47.0); HEMOGLOBIN 9.8 g/dl (12.0-15.5); LYMPH % 7.1 % (24.0-44.0); MEAN CORPUSCULAR HEMOGLOBIN 30.2 pg (27.0-33.0); MEAN CORPUSCULAR HGB CONC 31.3 g/dl (32.0-36.5); MEAN CORPUSCULAR VOLUME 96.3 fl (80.0-96.0); MONO # 0.9 10^3/uL (0.0-0.8); MONO % 6.5 % (2.0-8.0); NEUTROPHILS # 11.4 10^3/uL (1.5-8.5); NEUTROPHILS % 84.9 % (36.0-66.0); PLATELET COUNT, AUTOMATED 387 10^3/uL (150-450); RED BLOOD COUNT 3.25 10^6/uL (4.00-5.40); WHITE BLOOD COUNT 13.4 10^3/uL (4.0-10.0)
[2021-03-13 20:18] LABS: ALBUMIN 2.7 GM/DL (3.2-5.2); ALT/SGPT 10 U/L (12-78); BILIRUBIN,DIRECT < 0.1 MG/DL (0.0-0.2); BILIRUBIN,TOTAL 0.2 MG/DL (0.2-1.0); BLOOD UREA NITROGEN 24 MG/DL (7-18); CALCIUM LEVEL 9.3 MG/DL (8.8-10.2); CARBON DIOXIDE LEVEL 20 MEQ/L (21-32); CHLORIDE LEVEL 109 MEQ/L (98-107); CK-MB VALUE MASS < 1.0 NG/ML (<3.6); CPK CREATINE PHOSPHOKINASE 20 U/L (26-192); CREATININE FOR GFR 1.16 MG/DL (0.55-1.30); GLOMERULAR FILTRATION RATE 47.5 (>32); GLUCOSE, FASTING 167 MG/DL (70-100); NT-PRO BNP 5985 PG/ML (<450); POTASSIUM SERUM 4.3 MEQ/L (3.5-5.1); SODIUM LEVEL 138 MEQ/L (136-145); THYROID STIMULATING HORMONE 0.795 uIU/ML (0.358-3.740); TOTAL PROTEIN 5.6 GM/DL (6.4-8.2); TROPONIN I < 0.02 NG/ML (< 0.10)
[2021-03-13] MEDS ORDERED: cefTRIAXone SOD 2 GM in D5W MINI-BAG PLUS 50 ML IV ONE (21:00)
[2021-03-13] MEDS ORDERED: AZITHROMYCIN INJ 500 MG, VIAL MATE ADAPTER 1 EACH in NS 250 ML IV ONE (21:00)
[2021-03-13] MEDS ORDERED: CLOT10TR PO (21:44)
[2021-03-13] MEDS ORDERED: CEPH500C PO (21:44)
[2021-03-13] MEDS ORDERED: NS 1,840 ML in IV 1 EA IV ONE (21:45)
--- NOTE | 2021-03-13 21:54 | REPVR ---
PROCEDURE INFORMATION: Exam: CT Chest Without Contrast; Diagnostic Exam date and time: 03/13/2021 8:29 PM Age: 85 years old Clinical indication: Other: Pneumonia TECHNIQUE: Imaging protocol: Diagnostic computed tomography of the chest without contrast. 3D rendering (Not supervised by radiologist): MIP and/or 3D reconstructed images were created by the technologist. Radiation optimization: All CT scans at this facility use at least one of these dose optimization techniques: automated exposure control; mA and/or kV adjustment per patient size (includes targeted exams where dose is matched to clinical indication); or iterative reconstruction. COMPARISON: CT Chest without contrast 03/07/2021 3:54 PM FINDINGS: Tubes, catheters and devices: Pacemaker in position from the left. Lungs: Reticulonodular infiltrates, greatest in the right upper lobe with scattered fibro-atelectatic change, greatest in the bases with areas of moderate atelectasis or consolidation in the lower lobes. Pleural spaces: Trace right pleural effusion. Heart: Upper normal pericardial fluid. 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 Mild hiatal hernia. Pulmonary arteries: The main pulmonary artery measures 29 mm. Aorta: The ascending thoracic aorta measures 30 mm. Great vessels off aortic arch: With question of proximal stenosis within the proximal right subclavian artery. Lymph nodes: There are small mediastinal nodes which are upper normal. Gallbladder and bile ducts: Status post cholecystectomy. Bones/joints: Slightly decreased height of T7-T9 and slight anterior wedge configuration of T11 which appear to be chronic and are unchanged from 03/07/2021. Soft tissues: Unremarkable. IMPRESSION: 1. Reticulonodular pulmonary infiltrates, greatest in the right upper lobe with scattered fibro-atelectatic change, greatest in the bases with areas of moderate atelectasis or consolidation in the lower lobes and trace right pleural effusion consistent with pneumonia. Findings are increased in the left lower lobe since the prior study and somewhat decreased in the right upper lobe. 2. Mild hiatal hernia. 3. 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 4. Decreased pericardial fluid since the prior study with upper normal residual remaining. Electronically signed by: Mayank Davis On 03/13/2021 21:54:32 PM
[2021-03-13] MEDS ORDERED: ACETAMINOPHEN TAB 650MG DOSE (2X325MG) PO PRN (22:20)
[2021-03-13] MEDS ORDERED: VANCOMYCIN HCL 920 MG in IV FLUID PLACE HOLDER 1 EA IV SCH (22:20)
[2021-03-13] MEDS ORDERED: LevoFLOXacin IV 500 MG in IV 1 EA IV SCH (22:20)
[2021-03-13] MEDS ORDERED: MEROPENEM INJ 2 GM in NS 100 ML IV SCH (22:20)
[2021-03-13] MEDS ORDERED: MOM 30ML SUSPENSION UDC PO PRN (22:20)
--- NOTE | 2021-03-13 22:42 | HPEPDOC ---
[facility] Medical History & Physical Date of Admission Mar 13, 2021 Date of Service: Mar 13, 2021 Primary Care Physician: KATHIA WORLEY DO Attending Physician: OZZIE SANCHEZ MD History and Physical TIME OF SERVICE: 11:10 PM CHIEF COMPLAINT: Sent from assisted living facility HISTORY OF PRESENT ILLNESS: Ms. Biggs, an 85-year-old female, was admitted to our facility from March 07- for management of Klebsiella pneumonia. She was sent back to her assisted living facility with Keflex. Despite taking all of her medications as instructed she has been feeling weak, continues, to have a dry cough and developed diarrhea; at her baseline she has multiple bowel movements per day because of the colectomy but over the last few few days she developed liquid stools. She denies feeling m ore short of breath, denies having fevers or chills, denies wheezing and denies feeling like her COPD is acting up. Per ER intake notes EMS noted her initial O2 sats were 87%. REVIEW OF SYSTEMS: 10 point review of systems negative except as listed in HPI PAST MEDICAL/ SURGICAL HISTORY: CAD w RCA stent in 2004,Chronic HFpEF (grade1), Moderate Pulmonary HTN (PASP 40-50), Aortic valve sclerosis w/o stenosis, COPD, CKD3, NIDDM (A1C 6.4%), Chronic BLE DVT with IVC filter April 2019, Type II Mob alicia heart block with pacemaker, GERD, Glaucoma and macular degeneration, History of upper GI bleed, History of small bowel obstruction due to adhesions, Subtotal colectomy around 1999, Hysterectomy, Cholecystectomy, Appendectomy, Multiple breast biopsies, Bilateral cataract surgery SOCIAL HISTORY: She is a former smoker, , is retired and lives at [facility] HISTORY: Both of her parents who are had CAD ALLERGIES: Please see below. HOME MEDICATIONS: Please see below. PHYSICAL EXAMINATION: Vital Signs Date Time Temp Pulse Resp B/P (MAP) Pulse Ox O2 Delivery O2 Flow Rate FiO2 03/13/21 19:07 109/57 (74) 03/13/21 19:16 96 93 03/13/21 19:21 101.4 22 Room Air 03/13/21 19:31 3.0 GEN: well nourished / well developed/ NAD INTEGUMENT: not flushed/ not diaphoretic HEENT: lips acyanotic /nasal cannula in place CVS: RRR/NMRG/ radial pulses intact / no lower extremity edema LUNGS: able to speak full sentences without stopping to take a breath /has a dry cough coughing /she is not using accessory muscles/her lungs are clear to auscultation bilaterally on room air ABDOMEN: there are no masses or lesions / bowel sounds are present / the abdomen is tympanic on percussion, soft & not tender with palpation MSK/EXTREMITIES: normocephalic / atramatic NEURO: CN 2-12 are grossly intact / speech is not dysarthric PSYCH: alert and oriented to person place and time/ able to understand and follow all commands LABORATORY DATA: Blood Gas Bicarbonate Standard 19.3, Venous Blood pH 7.373, Venous Blood Partial Pressure CO2 32.0L, Venous Blood Partial Pressure O2 58.9H, Venous Blood Total Carbon Dioxide 19.2L, Venous Blood HCO3 18.2L, Venous Blood Oxygen Saturation 89.3H, Venous Blood Base Excess -6.1L, Lactic Acid Level 0.8 Immature Granulocyte % (Auto) 0.7, Neutrophils (%) (Auto) 84.9H, Lymphocytes (%) (Auto) 7.1L, Monocytes (%) (Auto) 6.5, Eosinophils (%) (Auto) 0.7, Basophils (%) (Auto) 0.1, Neutrophils # (Auto) 11.4H, Lymphocytes # (Auto) 1.0L, Monocytes # (Auto) 0.9H, Eosinophils # (Auto) 0.1, Basophils # (Auto) 0.0, Nucleated Red Blood Cells % (auto) 0.0, Anion Gap 9, Glomerular Filtration Rate 47.5, Calcium Level 9.3, Total Bilirubin 0.2, Direct Bilirubin < 0.1, Aspartate Amino Transf (AST/SGOT) 4L, Alanine Aminotransferase (ALT/SGPT) 10L, Alkaline Phosphatase 109, Total Creatine Kinase 20L, Creatine Kinase MB < 1.0, Creatine Kinase MB Relative Index 5.00H, Troponin I < 0.02, WA-Tgx-K-Type Natriuretic Peptide 5985H, Total Protein 5.6L, Albumin 2.7L, Albumin/Globulin Ratio 0.9L, Thyroid Stimulating Hormone (TSH) 0.795 IMAGING: Chest xray IMPRESSION: Chronic changes with superimposed bibasilar atelectasis/early consolidations (right greater than left). CT chest IMPRESSION: 1. Reticulonodular pulmonary infiltrates, greatest in the right upper lobe with scattered fibro-atelectatic change, greatest in the bases with areas of moderate atelectasis or consolidation in the lower lobes and trace right pleural effusion consistent with pneumonia. Findings are increased in the left lower lobe since the prior study and somewhat decreased in the right upper lobe. 2. Mild hiatal hernia. 3. 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 4. Decreased pericardial fluid since the prior study with upper normal residual remaining. MICROBIOLOGY: Respiratory panel is neg ASSESSMENT: Ms. Ash is an 85-year-old female with CAD, HFpEF (grade1), Pulmonary HTN, COPD, CKD3, NIDDM, Chronic BLE DVT, Mobitz Type II heart block with pacemaker, GERD, Glaucoma and macular degeneration who is admitted for management of sepsis likely secondary to hospital-acquired pneumonia. PLAN: 1 Sepsis likely 2/2 Pneumonia -SIRS criteria: Temp >101 / HR >90 / WBC >12 / RR > 22 -Source likely PNA +/- C.diff Plan: Because her MAP has been as low as 54 and NEWS2 Score is 6 points, which is medium risk she will need monitoring every hour therefore I will admit her to the ICU / telemetry / abx / switch to lactate ringers / f/u Singh culture results / we will keep her on contact precautions pending C.Diff results/ Acetaminophen PRN for fever / target MAP at of least 65 to 70 / place barrera & f/u Is and Os with target UOP of at least 0.5 ml/kg/H / f/u FSBS w target serum glucose 140-180 while acutely ill / she is DNR/DNI 2 Hospital Acquired Pneumonia -During her hospitalization in February her sputum cultures grew Pseudomonas aeruginosa, when she was readmitted at the beginning of March her sputum cultures grew Klebsiella pneumoniae her PCR for MRSA was also positive. Since the CT scan showed an increase in the left-sided infiltrate it is likely that she is growing another hospital-acquired organism that is resistant to the Keflex. -HerPORT/PSI Score to predict risk of mortality in patient w CAP is 123 which corresponds with risk class IV and a 8.2 to 9.3% mortality. Hospital admission is recommended based on her risk class -Her DRIP Score to predict risk of drug resistant CAP and need for extended spectrum antibiotics is 9 which is high risk. (Scores = or >4 are associated with a higher risk of drug resistant PNA) Plan: continuous pulse ox & supplemental O2/ f/u repeat blood cx, sputum cx, strep pneumo ,legionella, mycoplasma, Klebsiella, and PCR for MRSA /based on the recommendations on up-to-date for patients with Pneumonia that also have high risk factors including sepsis I will start her on aztreonam and meropenem for double Pseudomonas coverage along with vancomycin / c/w IVF/per 2019 IDSA/ATS guidelines for CAP will not check procalcitonin to distinguish between viral and bacterial pathogens prior to starting abx /because she has multiple allergies and this is her third admission for pneumonia, I will ask the day time team consider consulting ID 3 COPD -The patient denies feeling more short of breath or wheezing Plan: Continue with albuterol and Advair 4 CAD w RCA stent in 2004 Plan:she is not on ASA or Plavix (posibly due to her history of GI bleed ??) / c/w nitroglycerine PRN 5 Chronic HFpEF (grade1) / Moderate Pulmonary HTN (PASP 40-50) -Despite the elevated BNP clinically she is euvolemic Plan:monitor Is and Os & daily weight 6 Macrocytic Anemia -Likely multifactorial (COPD causes macrocytosis, she also has a hx of UGIB) Plan: Follow-up iron panel and CBC /hold oral iron while she is acutely ill /she has a history of GI bleed therefore we will continue with Carafate and PPI 7 CKD3 Plan: Calcitriol sodium bicarbonate 8 NIDDM Recent A1C was 6.4% Plan: diabetic diet / f/u accuchecks & A1C / hypoglycemia protocol / sliding scale insulin 9 Chronic BLE DVT with IVC filter April 2019 Plan: Rivaroxaban DVT PROPHYLAXIS: n/a on DOAC DISPOSITION: back to [facility] after more than 2 midnight's stay LATE ENTRY 1:24AM Per d/w [place] Matt the patients BP is 103/55,; we will hold off starting Levophed for now. Home Medications Scheduled Acetaminophen (Tylenol Extra Strength) 500 Mg Tablet, 1,000 MG PO BID Allopurinol (Allopurinol) 100 Mg Tablet, 100 MG PO DAILY Bimatoprost (Lumigan) 0.01% 2.5ML Drops, 1 DROP OU QHS Brinzolamide (Azopt) 1% 10ML Drops.susp, 1 DROP OU BID Calcitriol (Calcitriol) 0.25 Mcg Capsule, 0.25 MCG PO DAILY Cephalexin (Cephalexin) 500 Mg Capsule, 500 MG PO TID 0900, 1300, 1700: LAST DOSE WILL BE GIVEN ON 03/18/21 @1300 Cholecalciferol (Vitamin D3) (Vitamin D3) 50 Mcg Capsule, 50 MCG PO DAILY Clotrimazole (Clotrimazole) 10 Mg Riana, 10 MG PO QID 0900, 1300, 1700, 2100: LAST DOSE WILL BE GIVEN ON 03/16/21 @1300 Ferrous Gluconate (Ferrous Gluconate) 324 Mg Tablet, 324 MG PO DAILY Pantoprazole Sodium (Pantoprazole Sodium) 40 Mg Tablet.dr, 40 MG PO DAILY Rivaroxaban (Xarelto) 15 Mg Tablet, 15 MG PO QPM 1700 Salmeterol/Fluticasone (Advair 500-50 Diskus) 1 Each Blst.w.dev, 1 PUFF INH BID Sennosides/Docusate Sodium (Senna-S Tablet) 1 Each Tablet, 2 TAB PO DAILY Sodium Bicarbonate (Sodium Bicarbonate) 325 Mg Tablet, 325 MG PO BID Sucralfate (Sucralfate) 1 Gm Tablet, 1 GM PO AC Vit C/E/Zn/Coppr/Lutein/Zeaxan (Preservision Areds 2 Softgel) 1 Each Capsule, 1 CAP PO BID Scheduled PRN Acetaminophen (Acetaminophen ER) 650 Mg Tablet.er, 650 MG PO Q8H PRN for PAIN/FEVER Albuterol Sulf (Albuterol Sulfate) 2.5 Mg/3 Ml Vial.neb, 2.5 MG INH QID PRN for SHORTNESS OF BREATH Diclofenac Sodium (Diclofenac Sodium) 1% 100GM Gel..gram., 4 GM TOP QID PRN for PAIN APPLY TO AREAS OF MUSCLE ACHE Magnesium Hydroxide (Milk of Magnesia) 400 Mg/5 Ml Oral.susp, 2,400 MG PO DAILY PRN for CONSTIPATION Nitroglycerin (Nitrostat) 0.4 Mg Tab.subl, 0.4 MG SL NITRO PRN for CHEST PAIN Ondansetron HCl (Zofran) 4 Mg Tablet, 4 MG PO Q6H PRN for NAUSEA OR VOMITING Allergies Coded Allergies: carvedilol (Verified Allergy, Severe, difficulty breathing, 03/07/21) pitavastatin (Verified Allergy, Severe, anaphylaxis, 03/07/21) Penicillins (Verified Allergy, Mild, rash, 03/07/21) Quinolones (Verified Allergy, Mild, rash, 03/07/21) DG Inhibitors (Verified Adverse Reaction, Intermediate, kidney problems / cough, 03/07/21) dexamethasone (Verified Adverse Reaction, Intermediate, eyes burn, 03/07/21) dorzolamide (Verified Adverse Reaction, Intermediate, eyes burn, 03/07/21) neomycin (Verified Adverse Reaction, Intermediate, eyes burn, 03/07/21) polymyxin B (Verified Adverse Reaction, Intermediate, eyes burn, 03/07/21) timolol (Verified Adverse Reaction, Intermediate, eyes burn, 03/07/21) colesevelam (Verified Adverse Reaction, Mild, myalgia, 03/07/21) ezetimibe (Verified Adverse Reaction, Mild, myalgia, 03/07/21) losartan (Verified Adverse Reaction, Mild, nausea / no appetite, 03/07/21) A-FIB/CHADSVASC A-FIB History Current/History of A-Fib/PAF?: No Current PO Anticoag Therapy: No OZZIE SANCHEZ MD Mar 13, 2021 22:42
[2021-03-13] MEDS ORDERED: VANCOMYCIN HCL 750 MG, VIAL MATE ADAPTER 1 EACH in NS 250 ML IV ONE (23:00)
[2021-03-13 23:28] LABS: FERRITIN 178 NG/ML (8-252); IRON (FE) 11 UG/DL (50-170); PERCENT SATURATION 5.1 % (13.2-45.0); TOTAL IRON BINDING CAPACITY 216 UG/DL (250-450)
[2021-03-14] VITALS (22 sets, daily range): BP systolic 92–121; BP diastolic 50–60; O2SAT 90–97
[2021-03-14] MEDS ORDERED: NITROGLYCERIN 0.4 MG SUBL TABLET SL PRN
[2021-03-14] MEDS ORDERED: VANCOMYCIN HCL 500 MG in D5W MINI-BAG PLUS 100 ML IV ONE ×2
[2021-03-14] MEDS: LR 1,000 ML IV SCH ×2 (00:05→08:35)
[2021-03-14] MEDS ORDERED: NOREPINEPHRINE BITARTRATE 8 MG in D5W 492 ML IV SCH (00:30)
[2021-03-14] MEDS: BRINZOLAMIDE 1 % OPHTH SUSP (AZOPT) 10ML OU SCH ×3 (01:23→20:39)
[2021-03-14] MEDS: SODIUM BICARBONATE 325 MG TAB PO SCH ×3 (01:23→20:39)
[2021-03-14] MEDS ORDERED: GLUCOSE 4GM CHEW TABLET PO PRN (01:40)
[2021-03-14] MEDS ORDERED: GLUCAGON INJ 1MG VIAL SC PRN (01:40)
[2021-03-14] MEDS ORDERED: DEXTROSE 50% 50 ML SYRINGE IV PRN (01:40)
[2021-03-14 01:55] LABS: HEMATOCRIT 29.4 % (36.0-47.0); MEAN CORPUSCULAR HEMOGLOBIN 30.1 pg (27.0-33.0); MEAN CORPUSCULAR HGB CONC 30.6 g/dl (32.0-36.5); MEAN CORPUSCULAR VOLUME 98.3 fl (80.0-96.0); PLATELET COUNT, AUTOMATED 310 10^3/uL (150-450); RED BLOOD COUNT 2.99 10^6/uL (4.00-5.40); WHITE BLOOD COUNT 13.3 10^3/uL (4.0-10.0)
[2021-03-14 02:06] LABS: INR 2.34; PROTHROMBIN TIME 26.2 SECONDS (12.5-14.3)
[2021-03-14 02:07] LABS: PARTIAL THROMBOPLASTIN TIME 52.5 SECONDS (24.2-38.5)
[2021-03-14 02:23] LABS: CALCIUM LEVEL 8.2 MG/DL (8.8-10.2); CREATININE FOR GFR 1.23 MG/DL (0.55-1.30); GLOMERULAR FILTRATION RATE 44.4 (>32)
[2021-03-14] MEDS: MEROPENEM INJ 1 GM in IV 1 EA IV SCH ×2 (02:24→13:57)
[2021-03-14] MEDS: HumaLOG INSULIN (NovoLOG) PER UNIT SC SCH ×6 (02:30→20:30)
[2021-03-14 02:45] LABS: HEMOGLOBIN A1c 6.4 %
[2021-03-14] MEDS ORDERED: AZTREONAM 1 GM in D5W MINI-BAG PLUS 50 ML IV SCH (03:00)
[2021-03-14] MEDS: ADVAIR HFA 230/21MCG INHALER INH SCH ×2 (07:39→20:23)
[2021-03-14 08:03] LABS: VITAMIN B12 LEVEL 351 PG/ML (247-911)
[2021-03-14 08:04] LABS: FOLATE 6.3 NG/ML (>5.4)
[2021-03-14] MEDS: CALCITRIOL 0.25 MCG CAP (S0169) PO SCH (08:17)
[2021-03-14] MEDS: CLOTRIMAZOLE 10 MG TROCHE PO SCH ×2 (08:17→13:57)
[2021-03-14] MEDS: allopurinoL 100 MG TAB PO SCH (08:18)
[2021-03-14] MEDS: PANTOPRAZOLE 40MG TAB (PROTONIX) PO SCH (08:18)
[2021-03-14] MEDS: SUCRALFATE 1 GM TAB PO SCH ×3 (08:18→17:50)
[2021-03-14] MEDS: SENOKOT S TAB PO SCH (08:36)
--- NOTE | 2021-03-14 11:17 | IPNPDOC ---
Text Note Date of Service The patient was seen on 03/14/21. NOTE Subjective: Patient is an 85-year-old female who was admitted overnight for pn eumonia and sepsis. Patient was recently discharged on 03/11/2021 after hospitalization for Klebsiella pneumonia. Patient required fluid resuscitation but did not require vasopressor therapy overnight. Patient's blood pressure has been within normal range this morning and the patient is more alert and is tolerating p.o. intake. Patient states that she is feeling better than she when she did last night. Patient is still on oxygen but was able to tolerate being taken off oxygen when I was in the room. Patient is complaining of a productive cough which she has been dealing with since the middle of February. Patient has had 3 admissions now in the last month for pneumonia. Review of systems: General: Patient denies fevers HEENT: Patient denies headaches Cardiovascular: Patient denies chest pain Respiratory: Patient reports shortness of breath that is improved from yesterday and a productive cough GI: Patient denies abdominal pain, nausea, vomiting, diarrhea : Patient denies increased frequency or pain with urination Extremities: Patient denies swelling or pain in extremities Neurological: Patient denies numbness or tingling in legs Physical exam: Vitals: See below General: Alert and oriented female patient who is laying in bed when I walked into the room. Patient answer to questions appropriately. Patient did not appear to be in any acute distress. HEENT: Normocephalic, atraumatic, moist mucous membranes. Neck: No lymphadenopathy or thyromegaly Cardiac: Regular rate and rhythm, no murmurs, normal S1, normal S2 Pulm: End expiratory wheezing heard in the left upper lung field, faint crackles heard in the right lower lung field, other lung areas were clear to auscultation Abd: Nondistended, nontender to palpation, normal bowel sounds Ext: No edema bilateral lower extremities Labs: See below Imaging: Chest x-ray performed on 03/13/2021 was reported to show chronic changes with superimposed bibasilar atelectasis/early consolidations right greater than left. CT of the chest performed without contrast was reported to show reticular nodular pulmonary infiltrates, greatest in the right upper lobe with scattered fibroatelectatic change, greatest in the bases with areas of moderate atelectasis or consolidation of the lower lobes and trace right pleural effusion consistent with pneumonia. Findings are increased in the left lower lobe since the prior study and somewhat decreased in the right upper lobe. Mild hiatal hernia. 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 Decreased pericardial fluid since prior study with upper normal residual remaining. Assessment/plan: Patient is an 85-year-old female who presented to the emergency department with sepsis and was diagnosed with pneumonia 1. Sepsis secondary to pneumonia. Patient met SIRS criteria with a fever, tachycardia, leukocytosis and increased respiratory rate. Source is likely the pneumonia as the patient states that she has not had any diarrhea overnight into today. Patient did have a mean arterial pressure as low as 54 but did not require vasopressor therapy. Patient is currently off IV fluids that she is tolerating p.o. intake well and her blood pressure has recovered to within the normal range. Patient may be downgraded to PCU status later on today. 2. Hospital-acquired pneumonia. During her hospitalization in February her sputum culture grew Pseudomonas. Her sputum culture in March grew Klebsiella. Patient has CT scan that shows increased left-sided infiltrate likely growing another hospital-acquired organism that is resistant to Keflex. Patient is currently on vancomycin and meropenem. I spoke with clinical pharmacy and infectious disease earlier today who recommended discontinuing aztreonam and testing the patient for acid-fast bacterium as the patient may have Mycobacterium avium complex. I do not believe the patient has tuberculosis as she is low risk for this. 3. COPD. Patient is breathing better today and we will continue with her home medications. 4. Coronary artery disease with right coronary artery stent in 2004. Patient is not on aspirin or Plavix possibly due to GI bleed. 5. Heart failure with preserved ejection fraction, moderate pulmonary hypertension seen on last echo. Patient appears clinically euvolemic and we will continue to monitor. 6. Macrocytic anemia. Likely multifactorial. Iron does appear little low and vitamin B12 is within normal range. 7. Chronic kidney disease stage III. We will continue to monitor the patient's kidney function and avoid nephrotoxic agents. 8. Noninsulin dependent diabetes mellitus. Patient is now on sliding scale with meals and at bedtime. 9. Chronic bilateral DVT with IVC filter. We will continue her rivaroxaban DVT Prophylaxis: Rivaroxaban Disposition: We will continue to monitor the patient. AFB smear and culture has been ordered. Patient will most likely need follow-up with infectious disease. Patient may be a candidate for downgrade from ICU status later on today. VS,Fishbone, I+O VS, Fishbone, I+O Laboratory Tests 03/13/21 19:25 03/14/21 01:45 Vital Signs Date Time Temp Pulse Resp B/P (MAP) Pulse Ox O2 Delivery O2 Flow Rate FiO2 03/14/21 08:15 88 88 Room Air 03/14/21 08:00 18 03/14/21 07:15 118/60 (79) 3.0 03/14/21 07:00 97.8 I&O- Last 24 Hours up to 6 AM 03/14/21 06:00 Intake Total 2335 ml Output Total 660 ml Balance 1675 ml SHE CERON DO Mar 14, 2021 11:17
[2021-03-14] MEDS ORDERED: ACETAMINOPHEN TAB 650MG DOSE (2X325MG) PO PRN (14:50)
--- NOTE | 2021-03-14 16:51 | ECGEPIP ---
[facility] - ED Test Date: 2021-03-13 Pat Name: SILVIA BAER Department: Room: [place] [address] Gender: Female Systems Specialist: hernán : 1935 Requested By: RAINER Rodriguez Order Number: [id number] Reading MD: Rainer Galan Measurements Intervals Nelson Rate: 89 P: 67 DC: 182 QRS: -72 QRSD: 164 T: 103 QT: 422 QTc: 513 Interpretive Statements Atrial-sensed ventricular-paced rhythm with occasional premature ventricular complexes Electronically Signed on 03-14-2021 16:51:04 EDT by Rainer Galan
[2021-03-14] MEDS: VANCOMYCIN HCL 1,000 MG, VIAL MATE ADAPTER 1 EACH in NS 250 ML IV SCH (17:49)
[2021-03-14] MEDS: RIVAROXABAN 15 MG TAB (XARELTO) PO SCH (17:50)
[2021-03-14] MEDS: LATANOPROST 0.005% OPHTH SOLN 2.5 ML OU SCH (20:39)
[2021-03-14] MEDS: ACETAMINOPHEN 500 MG TAB PO SCH (20:39)
[2021-03-15] VITALS (20 sets, daily range): BP systolic 103–162; BP diastolic 52–72; O2SAT 91–98
[2021-03-15] MEDS: MEROPENEM INJ 1 GM in IV 1 EA IV SCH ×2 (00:50→12:53)
[2021-03-15 05:53] LABS: HEMATOCRIT 24.9 % (36.0-47.0); HEMOGLOBIN 7.8 g/dl (12.0-15.5); MEAN CORPUSCULAR HEMOGLOBIN 30.8 pg (27.0-33.0); MEAN CORPUSCULAR HGB CONC 31.3 g/dl (32.0-36.5); MEAN CORPUSCULAR VOLUME 98.4 fl (80.0-96.0); PLATELET COUNT, AUTOMATED 312 10^3/uL (150-450); RED BLOOD COUNT 2.53 10^6/uL (4.00-5.40); WHITE BLOOD COUNT 9.6 10^3/uL (4.0-10.0)
[2021-03-15 06:19] LABS: CALCIUM LEVEL 7.9 MG/DL (8.8-10.2); CREATININE FOR GFR 1.01 MG/DL (0.55-1.30); GLOMERULAR FILTRATION RATE 55.7 (>32); MAGNESIUM LEVEL 1.5 MG/DL (1.8-2.4)
[2021-03-15] MEDS: ADVAIR HFA 230/21MCG INHALER INH SCH ×2 (07:13→19:44)
[2021-03-15] MEDS: SENOKOT S TAB PO SCH (08:11)
[2021-03-15] MEDS: CALCITRIOL 0.25 MCG CAP (S0169) PO SCH (08:11)
[2021-03-15] MEDS: SODIUM BICARBONATE 325 MG TAB PO SCH ×2 (08:11→20:26)
[2021-03-15] MEDS: SUCRALFATE 1 GM TAB PO SCH ×3 (08:11→17:47)
[2021-03-15] MEDS: HumaLOG INSULIN (NovoLOG) PER UNIT SC SCH ×4 (08:11→20:26)
[2021-03-15] MEDS: ACETAMINOPHEN 500 MG TAB PO SCH ×2 (08:12→20:26)
[2021-03-15] MEDS: PANTOPRAZOLE 40MG TAB (PROTONIX) PO SCH (08:12)
[2021-03-15] MEDS: allopurinoL 100 MG TAB PO SCH (08:12)
[2021-03-15] MEDS: MAG SULF 1GM/100ML (MAG RUN) 1 GM in IV 1 EA IV SCH ×2 (08:12→11:45)
[2021-03-15] MEDS: BRINZOLAMIDE 1 % OPHTH SUSP (AZOPT) 10ML OU SCH ×2 (08:13→20:26)
[2021-03-15] MEDS: ALBUTEROL SULFATE 2.5 MG/0.5 ML INH NEB SOLN INH PRN (08:45)
--- NOTE | 2021-03-15 11:28 | IPNPDOC ---
Text Note Date of Service The patient was seen on 03/15/21. NOTE Subjective: Patient is an 85-year-old female who presented to the emergency d [facility] on 03/13/2021 for pneumonia and sepsis. Patient has been recently admitted 3 times for pneumonia. Patient states she is tired today and feeling like her breathing has not improved. Patient feels like she is more wheezy than she was yesterday. Patient was eating breakfast. Patient did have multiple PVCs on telemetry overnight but she was asymptomatic. Patient states that she is otherwise feeling well. Review of systems: General: Patient denies fevers HEENT: Patient denies headaches Cardiovascular: Patient denies chest pain Respiratory: Patient reports feeling more wheezy and coughing as above GI: Patient denies abdominal pain, nausea, vomiting, diarrhea : Patient denies increased frequency or pain with urination Extremities: Patient denies swelling or pain in extremities Neurological: Patient denies numbness or tingling in legs Physical exam: Vitals: See below General: Alert and oriented female patient who is laying in bed when I walked in the room. Patient was eating breakfast and able to answer questions appropriately. Patient did not appear to be in any acute distress. HEENT: Normocephalic, atraumatic, moist mucous membranes. Neck: No lymphadenopathy or thyromegaly Cardiac: Regular rate and rhythm, no murmurs, normal S1, normal S2 Pulm: And expiratory wheezing heard throughout the lung field with faint crackles heard in right lower lung field. Abd: Nondistended, nontender to palpation, normal bowel sounds Ext: No edema bilateral lower extremities Labs: See below Imaging: No new imaging has been performed Assessment/plan: Patient is an 85-year-old female presented to the emergency department with sepsis and was diagnosed with pneumonia. 1. Sepsis secondary to pneumonia. Patient met SIRS criteria with a fever, tachycardia, leukocytosis and increased respiratory rate. Source is likely pneumonia. Patient is currently on vancomycin and meropenem. We will continue to monitor the patient. Patient is blood pressure has been stable and she has not had a fever in greater than 24 hours. 2. Hospital-acquired pneumonia. I did speak with infectious disease who is concerned for possible Mycobacterium avium complex due to the reticular nodular pulmonary infiltrates that were seen on the chest CT. Acid-fast bacterium stain and culture has been ordered. Consult for infectious disease will be performed on Wednesday. 3. COPD. Patient's breathing appears to be slightly worse today. I have asked the nurse to get the patient a as needed respiratory treatment and will reevaluate the patient later in the day. 4. Frequent PVCs. Patient has been having more PVCs on telemetry. Patient did have low magnesium which was repleted today. EKG and troponin will be ordered and we will monitor the patient. 5. Coronary artery disease with right coronary stent in 2004. Patient is not on aspirin or Plavix possibly due to GI bleed we will continue to monitor. 6. Heart failure with preserved ejection fraction, moderate pulmonary hypertension seen on last echo. Patient clinically appears euvolemic and will continue to monitor. 7. Microcytic anemia. Likely multifactorial. Iron does appear little low and vitamin B12 is within normal range. 8. Chronic kidney disease stage III. We will continue to monitor the patient's kidney function and avoid nephrotoxic agents. 9. Hkw-elqdcgg-tsbyellrs diabetes mellitus. Patient is on sliding scale with meals and at bedtime. 10. Chronic bilateral DVT with IVC filter. Continue on the rivaroxaban DVT Prophylaxis: Rivaroxaban Disposition: Pending clinical improvement and infectious disease consultation After initial note had been written patient had elevated troponin of 0.32. Pat ient had a normal troponin on admission on 03/13/2021. Patient denies chest pain and actually says she is feeling better. Patient was given 324 mg of aspirin and will be started on a daily baby aspirin after this. I called and spoke with Dr. Ivan of cardiology who recommended a repeat in 6 hours which would be at 8 PM tonight. I discussed this with the patient and stated that the patient has 2 op tions if the troponins continue to become elevated. Patient can stay at [facility] for medical treatment. Patient is currently on Xarelto and aspirin has been started. Patient cannot be on a statin therapy as she had anaphylaxis to a statin in the past. Patient had been on beta-blockers which cause shortness of breath. Patient could also be transferred down to [facility] in [place]. Patient states that if she were to be transferred, she would want to go to [facility] and not [facility]. Patient did not make a definite decision however, this can be broached by the night team this evening if the troponins continue to rise. I will sign out the repeat troponin to the night provider. VS,Fishbone, I+O VS, Fishbone, I+O Laboratory Tests 03/15/21 05:04 Vital Signs Date Time Temp Pulse Resp B/P (MAP) Pulse Ox O2 Delivery O2 Flow Rate FiO2 03/15/21 10:00 92 Nasal Cannula 1.0 03/15/21 08:20 98.9 79 18 128/57 (80) I&O- Last 24 Hours up to 6 AM 03/15/21 06:00 Intake Total 1790 ml Output Total 710 ml Balance 1080 ml SEH CERON DO Mar 15, 2021 11:28
[2021-03-15 14:38] LABS: CK-MB VALUE MASS 1.3 NG/ML (<3.6); MB/CK RELATIVE INDEX 6.19 (< OR =4); TROPONIN I 0.32 NG/ML (< 0.10)
[2021-03-15] MEDS: MAGNESIUM OXIDE 400MG TAB (MAG-OX) PO SCH (15:19)
[2021-03-15] MEDS ORDERED: ASPIRIN 81 MG CHEW TABLET PO ONE (16:00)
--- NOTE | 2021-03-15 17:40 | ECGEPIP ---
[facility] Test Date: 2021-03-15 Pat Name: SILVIA BAER Department: Room: [place] [address] Gender: Female Family Law Mediator: RAFAEL : 1935 Requested By: SHE CERON Order Number: [id number] Reading MD: Rainer Galan Measurements Intervals Blair Rate: 70 P: HI: 146 QRS: -73 QRSD: 182 T: 111 QT: 456 QTc: 492 Interpretive Statements AV dual-paced rhythm Similar to tracing done 03-07-21 Electronically Signed on 03-15-2021 17:40:24 EDT by Rainer Galan
[2021-03-15] MEDS: VANCOMYCIN HCL 1,000 MG, VIAL MATE ADAPTER 1 EACH in NS 250 ML IV SCH (17:46)
[2021-03-15] MEDS: RIVAROXABAN 15 MG TAB (XARELTO) PO SCH (17:47)
[2021-03-15] MEDS: LATANOPROST 0.005% OPHTH SOLN 2.5 ML OU SCH (20:26)
[2021-03-15 20:50] LABS: CK-MB VALUE MASS 1.3 NG/ML (<3.6); MB/CK RELATIVE INDEX 7.22 (< OR =4); TROPONIN I 0.27 NG/ML (< 0.10)
[2021-03-16] VITALS (23 sets, daily range): BP systolic 106–166; BP diastolic 55–75; O2SAT 90–96
[2021-03-16] MEDS: MEROPENEM INJ 1 GM in IV 1 EA IV SCH ×2 (00:31→12:03)
[2021-03-16 06:07] LABS: HEMATOCRIT 25.8 % (36.0-47.0); MEAN CORPUSCULAR HEMOGLOBIN 30.2 pg (27.0-33.0); MEAN CORPUSCULAR VOLUME 97.4 fl (80.0-96.0); PLATELET COUNT, AUTOMATED 323 10^3/uL (150-450); RED BLOOD COUNT 2.65 10^6/uL (4.00-5.40); WHITE BLOOD COUNT 7.9 10^3/uL (4.0-10.0)
[2021-03-16 06:24] LABS: BLOOD UREA NITROGEN 23 MG/DL (7-18); CALCIUM LEVEL 8.3 MG/DL (8.8-10.2); CARBON DIOXIDE LEVEL 21 MEQ/L (21-32); CHLORIDE LEVEL 115 MEQ/L (98-107); GLOMERULAR FILTRATION RATE > 60.0 (>32); GLUCOSE, FASTING 94 MG/DL (70-100); SODIUM LEVEL 146 MEQ/L (136-145)
[2021-03-16] MEDS: ADVAIR HFA 230/21MCG INHALER INH SCH ×2 (07:19→20:16)
[2021-03-16] MEDS: HumaLOG INSULIN (NovoLOG) PER UNIT SC SCH ×4 (07:30→20:52)
[2021-03-16] MEDS: IPRATROPIUM 0.5MG/ALBUTEROL 2.5MG INH SOL UD 3ML (DUONEB) NEB SCH ×3 (08:00→20:16)
[2021-03-16] MEDS: ALBUTEROL SULFATE 2.5 MG/0.5 ML INH NEB SOLN INH PRN (08:16)
[2021-03-16] MEDS: ACETAMINOPHEN 500 MG TAB PO SCH ×2 (08:34→20:53)
[2021-03-16] MEDS: predniSONE 20 MG TAB PO SCH (08:35)
[2021-03-16] MEDS: CALCITRIOL 0.25 MCG CAP (S0169) PO SCH (08:35)
[2021-03-16] MEDS: allopurinoL 100 MG TAB PO SCH (08:35)
[2021-03-16] MEDS: MAGNESIUM OXIDE 400MG TAB (MAG-OX) PO SCH (08:35)
[2021-03-16] MEDS: SUCRALFATE 1 GM TAB PO SCH ×3 (08:35→17:25)
[2021-03-16] MEDS: PANTOPRAZOLE 40MG TAB (PROTONIX) PO SCH (08:35)
[2021-03-16] MEDS: ASPIRIN 81MG ENTERIC TABLET PO SCH (08:35)
[2021-03-16] MEDS: SENOKOT S TAB PO SCH (08:36)
[2021-03-16] MEDS: BRINZOLAMIDE 1 % OPHTH SUSP (AZOPT) 10ML OU SCH ×2 (08:36→20:53)
[2021-03-16] MEDS: SODIUM CHLORIDE NASAL 0.65% SPRAY BTL (OCEAN) SCH ×3 (09:00→20:53)
--- NOTE | 2021-03-16 11:07 | IPNPDOC ---
Text Note Date of Service The patient was seen on 03/16/21. NOTE Subjective: Patient is an 85-year-old female who presented to the [facility] on 03/[facility]21 for pneumonia and sepsis. This is the patient's third admission last month for pneumonia. Patient is feeling like her breathing is not improved. Patient did have an elevated troponin at 0.32 yesterday that was slightly lower on recheck. Patient denied have any chest pain and the PVCs have slowly gone away on the monitor. Patient continues to have a paced rhythm. Patient states that she is feeling more congested and wheezy today compared to previous days. Review of systems: General: Patient denies fevers HEENT: Patient denies headaches Cardiovascular: Patient denies chest pain Respiratory: Patient reports some increased shortness of breath and congestion. GI: Patient denies abdominal pain, nausea, vomiting, diarrhea : Patient denies increased frequency or pain with urination Extremities: Patient denies swelling or pain in extremities Neurological: Patient denies numbness or tingling in legs Physical exam: Vitals: See below General: Alert and oriented female patient who was sitting in the bed when I walked into the room. Patient was answering questions appropriately had nasal cannula oxygen in place. Patient did not appear to be in any acute distress. HEENT: Normocephalic, atraumatic, moist mucous membranes. Neck: No lymphadenopathy or thyromegaly Cardiac: Regular rate and rhythm, no murmurs, normal S1, normal S2 Pulm: End expiratory wheezing heard throughout the lung ernandez bilaterally. Abd: Nondistended, nontender to palpation, normal bowel sounds Ext: No edema bilateral lower extremities Labs: See below Imaging: No new imaging has been performed Assessment/plan: Patient is an 85-year-old female who presented to the emergency department with sepsis with diagnosed with pneumonia. 1. Sepsis secondary to pneumonia. Patient did meet SIRS criteria with a fever, tachycardia, leukocytosis, and increased respiratory rate. Source is likely pneumonia. We will continue with vancomycin and meropenem. We will continue to monitor the patient's. Patient's blood pressures have been stable and she has not had a fever from was 48 hours now. Infectious disease consultation most likely tomorrow. 2. Hospital-acquired pneumonia. There is concern for possible Mycobacterium avium complex due to the reticulonodular pulmonary infiltrates seen on chest CT. Acid-fast bacterium stain culture have been ordered. Consult for infectious di evelyn tomorrow. 3. COPD with exacerbation. Patient appears wheezy and does appear to be in an exacerbation of COPD today she is requiring more oxygen and having a tougher time breathing. We will start the patient on prednisone 40 mg for 5 days. 4. Elevated troponins with frequent PVCs. Patient's PVCs have slowed down from trigeminy. Patient electrolytes have been checked and repleted. We will repeat the patient's troponin at noon time today. Patient denies any chest pain 5. Coronary artery disease with right coronary stent in 2004. Patient was started on aspirin yesterday and will continue on aspirin. Patient is also on rivaroxaban. 6. Heart failure with preserved ejection fraction, moderate pulmonary hypertension seen on last echocardiogram in February 2021. Patient clinically appears euvolemic. 7. Microcytic anemia. Likely multifactorial. We will continue to monitor. 8. Chronic kidney disease stage III. We will continue to monitor the patient's kidney function. 9. Ftl-capunlv-tycxyxjkt diabetes mellitus. Patient is on sliding scale with meals and at bedtime. We will have to monitor her sugars closely as she will be starting prednisone for COPD exacerbation 10. Chronic bilateral DVT with IVC filter. Continue rivaroxaban DVT Prophylaxis: Rivaroxaban Disposition: Pending clinical improvement and infectious disease consultation Josie BROWN, I+O VSJosie, I+O Laboratory Tests 03/16/21 05:06 Vital Signs Date Time Temp Pulse Resp B/P (MAP) Pulse Ox O2 Delivery O2 Flow Rate FiO2 03/16/21 10:00 94 Nasal Cannula 1.0 03/16/21 08:00 97.4 71 16 166/75 (105) I&O- Last 24 Hours up to 6 AM 03/16/21 06:00 Intake Total 1710 ml Output Total 550 ml Balance 1160 ml SHE CERON DO Mar 16, 2021 11:07
[2021-03-16 12:58] LABS: CK-MB VALUE MASS < 1.0 NG/ML (<3.6); CPK CREATINE PHOSPHOKINASE 24 U/L (26-192); MB/CK RELATIVE INDEX 4.17 (< OR =4); TROPONIN I 0.18 NG/ML (< 0.10)
[2021-03-16] MEDS: RIVAROXABAN 15 MG TAB (XARELTO) PO SCH (17:25)
[2021-03-16] MEDS: VANCOMYCIN HCL 1,000 MG, VIAL MATE ADAPTER 1 EACH in NS 250 ML IV SCH (17:43)
--- NOTE | 2021-03-16 19:04 | ECGEPIP ---
[facility] Test Date: 2021-03-15 Pat Name: SILVIA BAER Department: Room: [place] [address] Gender: Female Nursery Teacher: JACI : 1935 Requested By: SHE CERON Order Number: [id number] Reading MD: Rainer Galan Measurements Intervals [place] Rate: 84 P: TX: 146 QRS: -68 QRSD: 176 T: 107 QT: 434 QTc: 512 Interpretive Statements AV dual-paced rhythm with frequent premature ventricular complexes Similar to tracing done 03-15-21 Electronically Signed on 03-16-2021 19:04:19 EDT by Rainer Galan
[2021-03-16] MEDS: LATANOPROST 0.005% OPHTH SOLN 2.5 ML OU SCH (20:53)
[2021-03-17] VITALS (18 sets, daily range): BP systolic 116–164; BP diastolic 57–71; O2SAT 92–99
[2021-03-17] MEDS: IPRATROPIUM 0.5MG/ALBUTEROL 2.5MG INH SOL UD 3ML (DUONEB) NEB SCH ×4 (01:10→20:00)
[2021-03-17] MEDS: MEROPENEM INJ 1 GM in IV 1 EA IV SCH ×2 (01:48→11:59)
[2021-03-17 05:29] LABS: HEMATOCRIT 25.6 % (36.0-47.0); MEAN CORPUSCULAR HGB CONC 31.3 g/dl (32.0-36.5); MEAN CORPUSCULAR VOLUME 95.9 fl (80.0-96.0); PLATELET COUNT, AUTOMATED 336 10^3/uL (150-450); RED BLOOD COUNT 2.67 10^6/uL (4.00-5.40); WHITE BLOOD COUNT 7.9 10^3/uL (4.0-10.0)
[2021-03-17 05:48] LABS: CALCIUM LEVEL 8.7 MG/DL (8.8-10.2); CREATININE FOR GFR 1.01 MG/DL (0.55-1.30); GLOMERULAR FILTRATION RATE 55.7 (>32)
[2021-03-17] MEDS: HumaLOG INSULIN (NovoLOG) PER UNIT SC SCH ×4 (07:30→20:46)
[2021-03-17] MEDS: ADVAIR HFA 230/21MCG INHALER INH SCH ×2 (07:33→20:12)
[2021-03-17] MEDS: allopurinoL 100 MG TAB PO SCH (09:07)
[2021-03-17] MEDS: CALCITRIOL 0.25 MCG CAP (S0169) PO SCH (09:07)
[2021-03-17] MEDS: ASPIRIN 81MG ENTERIC TABLET PO SCH (09:07)
[2021-03-17] MEDS: SENOKOT S TAB PO SCH (09:07)
[2021-03-17] MEDS: SUCRALFATE 1 GM TAB PO SCH ×3 (09:08→17:30)
[2021-03-17] MEDS: predniSONE 20 MG TAB PO SCH (09:08)
[2021-03-17] MEDS: SODIUM CHLORIDE NASAL 0.65% SPRAY BTL (OCEAN) SCH ×3 (09:08→20:45)
[2021-03-17] MEDS: MAGNESIUM OXIDE 400MG TAB (MAG-OX) PO SCH (09:08)
[2021-03-17] MEDS: PANTOPRAZOLE 40MG TAB (PROTONIX) PO SCH (09:08)
[2021-03-17] MEDS: ACETAMINOPHEN 500 MG TAB PO SCH ×2 (09:08→20:46)
[2021-03-17] MEDS: BRINZOLAMIDE 1 % OPHTH SUSP (AZOPT) 10ML OU SCH ×2 (09:09→20:45)
--- NOTE | 2021-03-17 11:19 | IPNPDOC ---
Text Note Date of Service The patient was seen on 03/17/21. NOTE Subjective: Patient is an 85-year-old female presented to the emergency [facility] on 03/13/2021 for pneumonia and sepsis. Patient is still having some difficulty breathing and a lot of coughing. Patient is bringing up a white phlegm with her coughing. Patient states that she is feeling slightly better today. Patient had no acute events overnight. Patient is otherwise doing well today. Review of systems: General: Patient denies fevers HEENT: Patient denies headaches Cardiovascular: Patient denies chest pain Respiratory: Patient reports decreasing shortness of breath and increasing cough as above GI: Patient denies abdominal pain, nausea, vomiting, diarrhea : Patient denies increased frequency or pain with urination Extremities: Patient denies swelling or pain in extremities Neurological: Patient denies numbness or tingling in legs Physical exam: Vitals: See below General: Alert and oriented female patient who was sitting in the bed when I walked in the room. Patient had nasal cannula oxygen in place. Patient did not appear to be in acute distress. HEENT: Normocephalic, atraumatic, moist mucous membranes. Neck: No lymphadenopathy or thyromegaly Cardiac: Regular rate and rhythm, no murmurs, normal S1, normal S2 Pulm: Scattered end expiratory wheezing heard throughout the lung ernandez bilaterally. Abd: Nondistended, nontender to palpation, normal bowel sounds Ext: No edema bilateral lower extremities Labs: See below Imaging: No new imaging has been performed Assessment/plan: 85-year-old female present to the emergency department with sepsis and was diagnosed with recurrent pneumonia 1. Sepsis secondary to pneumonia. Patient did meet SIRS criteria with fever, tachycardia, leukocytosis, and increased respiratory rate. Source is most li andria pneumonia. Continue with vancomycin and meropenem. I have consulted infectious disease will see the patient later on this afternoon. I appreciate Dr. Donaldson's help in treating the patient. 2. Hospital-acquired pneumonia. There is concern for possible Mycobacterium avium complex due to the reticular nodular pulmonary infiltrates seen on chest CT. Acid-fast bacterium stain was negative. Infectious disease to see the patient today. 3. COPD with exacerbation. Patient is on day 2 of prednisone 40 mg. She is getting duo nebs. Patient is coughing more today and still requiring oxygen when she is not on oxygen at home. We will continue to monitor the patient. 4. Elevated troponins with frequent PVCs. Patient's telemetry strip shows no PVCs at this time. Patient's electrolytes are within normal range. Patient's troponin continued to decrease when checked yesterday. We will not check any further labs at this time unless new symptoms arise. 5. Coronary artery disease with right coronary stent in 2004. Patient was started on aspirin 2 days ago and will continue on aspirin. Patient is also on rivaroxaban. 6. Heart failure with preserved ejection fraction, moderate pulmonary hypertension seen on last echocardiogram in February 2021. Patient clinically appears euvolemic. 7. Microcytic anemia. Likely multifactorial and we will continue to monitor. 8. Chronic kidney disease stage III. We will continue to monitor the patient's kidney function. 9. Yzx-agmtnsf-zigcmryse diabetes mellitus. Patient is on sliding scale with meals and at bedtime. Monitor sugars closely as she will be on prednisone for the next 5 days. 10. Chronic bilateral DVT with IVC filter. Continue rivaroxaban DVT Prophylaxis: Full anticoagulation with rivaroxaban Disposition: Pending clinical improvement Josie BROWN, I+O VSJosie I+O Laboratory Tests 03/17/21 05:09 Vital Signs Date Time Temp Pulse Resp B/P (MAP) Pulse Ox O2 Delivery O2 Flow Rate FiO2 03/17/21 09:00 93 Nasal Cannula 1.0 03/17/21 08:00 98.5 77 20 147/65 (92) I&O- Last 24 Hours up to 6 AM 03/17/21 06:00 Intake Total 1130 ml Output Total 1750 ml Balance -620 ml SHE CERON DO Mar 17, 2021 11:19
[2021-03-17 14:08] LABS: CHLAMYDIA PNEUMONIAE IgG <1:16 (Neg:<1:16); CHLAMYDIA PNEUMONIAE IgM <1:10 (Neg:<1:10); MYCOPLASMA PNEUMONIAE IgG <100 U/mL (0-99); MYCOPLASMA PNEUMONIAE IgM <770 U/mL (0-769)
[2021-03-17] MEDS: RIVAROXABAN 15 MG TAB (XARELTO) PO SCH (17:30)
[2021-03-17] MEDS ORDERED: SLF 3 ML SYR IV PRN (18:05)
[2021-03-17] MEDS: LATANOPROST 0.005% OPHTH SOLN 2.5 ML OU SCH (20:45)
[2021-03-17] MEDS: SLF 3 ML SYR IV SCH (21:23)
[2021-03-18] VITALS (16 sets, daily range): BP systolic 129–149; BP diastolic 60–76; O2SAT 88–96
[2021-03-18] MEDS: MEROPENEM INJ 1 GM in IV 1 EA IV SCH ×3 (00:06→22:45)
[2021-03-18] MEDS: IPRATROPIUM 0.5MG/ALBUTEROL 2.5MG INH SOL UD 3ML (DUONEB) NEB SCH ×4 (00:06→20:00)
[2021-03-18] MEDS: MAALOX 30 ML SUSP *UDC PO PRN ×2 (00:15→15:08)
[2021-03-18 05:43] LABS: HEMATOCRIT 24.7 % (36.0-47.0); HEMOGLOBIN 7.8 g/dl (12.0-15.5); MEAN CORPUSCULAR HEMOGLOBIN 29.9 pg (27.0-33.0); MEAN CORPUSCULAR HGB CONC 31.6 g/dl (32.0-36.5); MEAN CORPUSCULAR VOLUME 94.6 fl (80.0-96.0); PLATELET COUNT, AUTOMATED 341 10^3/uL (150-450); RED BLOOD COUNT 2.61 10^6/uL (4.00-5.40); WHITE BLOOD COUNT 8.9 10^3/uL (4.0-10.0)
[2021-03-18] MEDS: SLF 3 ML SYR IV SCH ×3 (05:57→20:18)
[2021-03-18 06:06] LABS: BLOOD UREA NITROGEN 21 MG/DL (7-18); CALCIUM LEVEL 8.6 MG/DL (8.8-10.2); CARBON DIOXIDE LEVEL 24 MEQ/L (21-32); CHLORIDE LEVEL 112 MEQ/L (98-107); CREATININE FOR GFR 0.85 MG/DL (0.55-1.30); GLOMERULAR FILTRATION RATE > 60.0 (>32); GLUCOSE, FASTING 159 MG/DL (70-100); MAGNESIUM LEVEL 2.1 MG/DL (1.8-2.4); POTASSIUM SERUM 4.2 MEQ/L (3.5-5.1); SODIUM LEVEL 140 MEQ/L (136-145)
[2021-03-18] MEDS: ADVAIR HFA 230/21MCG INHALER INH SCH ×2 (07:49→20:17)
[2021-03-18] MEDS: SENOKOT S TAB PO SCH (09:00)
--- NOTE | 2021-03-18 09:28 | CR ---
CONSULTATION DATE: 03/18/2021 REASON FOR CONSULTATION: Asked to consult by hospitalist service for multifocal pneumonia. 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 The patient has had problems with recurrent infections since 02/13. She was hospitalized until the with pseudomonas pneumonia. The culture did not result until after her discharge and the patient was treated with ceftriaxone and doxycycline. The pseudomonas was a mucoid colony. She was readmitted at [facility] on 03/07 to 03/11, with Klebsiella pneumonia. She was treated with IV meropenem for three days followed by Keflex. The patient had worsening diarrhea from her baseline and a dry cough and therefore was sent back to the hospital to be admitted. She had a temperature of 101.6 on admission and a white count of 13.4. The patient was treated with IV meropenem. Since admission, her cough and shortness of breath have improved. She was down to 1 liter oxygen. She denies having any fever or chills in the past three days. She has some wheezing. PAST MEDICAL HISTORY: 1. Coronary artery disease with RCA stent in 2004. 2. Chronic HFpEF. 3. Hypertension. 4. Moderate pulmonary hypertension. 5. COPD. 6. Chronic kidney disease. 7. Tuj-usqouuq-vwceuzqja diabetes. 8. 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 9. Heart block with pacemaker. 10. Gastroesophageal reflux disease. 11. Glaucoma. 12. Macular degeneration. 13. GI bleed. 14. Small bowel obstruction with adhesions treated by Dr. Jeffers. PAST SURGICAL HISTORY: 1. Colectomy. 2. Hysterectomy. 3. Colonoscopy. 4. Appendectomy. 5. Multiple breast biopsies. 6. Cataract surgery. SOCIAL HISTORY: She quit smoking in 2001 when she had pneumococcal pneumonia. She is a . 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 She lives at [facility] for the past two years. FAMILY HISTORY: Positive for coronary artery disease. ALLERGIES: PENICILLIN GAVE HER HIVES WHEN SHE WAS 18, BUT SHE HAS TOLERATED CEPHALOSPORINS AND CARBAPENEM. QUINOLONES A RASH. CARVEDILOL, DEXAMETHASONE, TORSEMIDE, ACETAMIDE, LOSARTAN, NEOMYCIN, PRAVACHOL. CURRENT MEDICATIONS: 1. Meropenem 1 gram IV q. 12 hours. 2. Vancomycin 1 gram IV q. 24 hours. 3. Nitroglycerin p.r.n. 4. Azopt one drop both eyes b.i.d. 5. Albuterol p.r.n. q.i.d. 6. Milk of magnesia 30 mL p.o. p.r.n. LABORATORY DATA: White count 7.9, hemoglobin 8, hematocrit 25.6, platelets 336,000. Sodium 142, potassium 4, chloride 115, bicarb 21, BUN 22, creatinine 1.01, glucose 159, calcium 8.7, magnesium 2.0. CPK 24. TSH 0.795. Sputum was not a good specimen therefore, nothing was isolated. Blood cultures three sets are negative from 03/13. Respiratory panel was negative. Sputum culture was not a good specimen. AFB smear and culture and fungal smear and culture were sent. Chlamydia IgM, IgG, and IgA were negative. Urine Legionella antigen is pending. Mycoplasma IgG and IgM are negative. IMAGING DATA: Review of chest CT done 08/2020 and 12/[address] evidence of bronchiectasis with advanced COPD. There were waxing and waning multifocal opacities since at least last year. These are concerning for nontuberculous mycobacteria and fungal pneumonia as they have been there for many years. With underlying chronic bronchiectasis and advanced COPD, the patient is at risk of nontuberculous mycobacteria. CT chest done on 03/13 was compared to the one done in December that showed a reticular nodule, pulmonary infiltrate right greater than left with atelectasis moderate in the lower lobes, and trace right pleural effusion consistent with pneumonia. The left lower lobe since prior study has decreased, infiltrate in the right upper lobe. Mild hiatal hernia. Decreased pericardial effusion. IMPRESSION: This is an 85-year-old female with a history of severe bronchiectasis, advanced chronic obstructive pulmonary disease (COPD) nonoxygen dependent and does not use nebulizer often, does not use rescue inhaler except for Advair who had been doing well except maybe for one hospitalization a year admitted on three different occasions in the past month with COPD, asthma exacerbation. The patient had a positive sputum for pseudomonas followed by Klebsiella and this hospitalization sputum could not be obtained. She has improved with IV meropenem and steroids. PLAN: The appearance of the multinodular reticular infiltrate are suggestive of possibility of nontuberculous mycobacteria such as MAC or mycobacterium abscessus. Other possibility includes fungal etiology. Discontinue IV vancomycin. The patient has a negative methicillin-resistant Staphylococcus aureus (MRSA) screen and culture. Continue IV meropenem currently day #4. Obtain three sputum AFB smear and culture to rule out nontuberculous mycobacteria. Those results could be followed up in my office as they will not be available for at least four to six weeks. Continue IV meropenem for a total of seven days [facility] K[facility]AND
[2021-03-18] MEDS: ACETAMINOPHEN 500 MG TAB PO SCH ×2 (09:30→20:17)
[2021-03-18] MEDS: HumaLOG INSULIN (NovoLOG) PER UNIT SC SCH ×4 (09:30→20:17)
[2021-03-18] MEDS: predniSONE 20 MG TAB PO SCH (09:30)
[2021-03-18] MEDS: SUCRALFATE 1 GM TAB PO SCH ×3 (09:30→17:34)
[2021-03-18] MEDS: BRINZOLAMIDE 1 % OPHTH SUSP (AZOPT) 10ML OU SCH ×2 (09:31→20:17)
[2021-03-18] MEDS: MAGNESIUM OXIDE 400MG TAB (MAG-OX) PO SCH (09:31)
[2021-03-18] MEDS: CALCITRIOL 0.25 MCG CAP (S0169) PO SCH (09:31)
[2021-03-18] MEDS: allopurinoL 100 MG TAB PO SCH (09:31)
[2021-03-18] MEDS: ASPIRIN 81MG ENTERIC TABLET PO SCH (09:31)
[2021-03-18] MEDS: PANTOPRAZOLE 40MG TAB (PROTONIX) PO SCH (09:31)
[2021-03-18] MEDS: SODIUM CHLORIDE NASAL 0.65% SPRAY BTL (OCEAN) SCH ×3 (09:31→20:17)
--- NOTE | 2021-03-18 13:13 | IPNPDOC ---
Text Note Date of Service The patient was seen on 03/18/21. NOTE Subjective: Patient is an 85-year-old female presented to the emergency [facility] on 03/13/2021 for pneumonia and sepsis. Patient has had 3 admissions now in the last month for recurrent pneumonias. Patient says her breathing is somewhat improved and her coughing is also improved. Patient is feeling slightly better today. Patient was placed on airborne precautions as we are ruling out Mycobacterium and it was an automatic reflex. Dr. Donaldson saw the patient yesterday and is concerned for nontuberculosis mycobacterium such as Mycobacterium avium complex. Patient did not have any acute events overnight. Review of systems: General: Patient denies fevers HEENT: Patient denies headaches Cardiovascular: Patient denies chest pain Respiratory: Patient reports decreasing shortness of breath and cough. GI: Patient denies abdominal pain, nausea, vomiting, diarrhea : Patient denies increased frequency or pain with urination Extremities: Patient denies swelling or pain in extremities Neurological: Patient denies numbness or tingling in legs Physical exam: Vitals: See below General: Alert and oriented female patient who was sitting in the bed when I walked in the room. Patient had nasal cannula oxygen in place. Patient did not appear to be in any acute distress. HEENT: Normocephalic, atraumatic, moist mucous membranes. Neck: No lymphadenopathy or thyromegaly Cardiac: Regular rate and rhythm, no murmurs, normal S1, normal S2 Pulm: Scattered end expiratory wheezing heard throughout the lung ernandez bilaterally Abd: Nondistended, nontender to palpation, normal bowel sounds Ext: No edema bilateral lower extremities Labs: See below Imaging: No new imaging has been performed Assessment/plan: 85-year-old female presented to the emergency department with sepsis of diagnosed with recurrent pneumonia 1. Sepsis secondary to pneumonia. Patient did meet SIRS criteria with fever, tachycardia, leukocytosis, and decreased respiratory rate. Source is most li andria pneumonia. Vancomycin was discontinued by Dr. Donaldson. Patient will continue meropenem for 7 days total. Today is day 5/7. I appreciate Dr. Donaldson's help in treating the patient. 2. Hospital-acquired pneumonia. There is concern for possible nontuberculosis mycobacterium. Cultures and stains have been sent. Recommendations from infectious disease are to give 7 days of meropenem and send the patient back to assisted living to follow-up with her in the office as the cultures for Mycobacterium can take 4 to 6 weeks to return. 3. COPD with exacerbation. Today is day 3 of prednisone for the patient. Patient is feeling better. We will continue to monitor. 4. Elevated troponins with frequent PVCs. Patient's telemetry strip does not show any PVCs at this time patient's troponins have decreased and no further labs are necessary unless new symptoms arise. 5. Coronary artery disease with right coronary stenting 2004. Patient was started on aspirin 3 days ago and will continue on aspirin. Patient is also on rivaroxaban 6. Heart failure preserved ejection fraction, moderate pulmonary hypertension seen on last echocardiogram in February 2021. Patient appears clinically euvolemic. 7. Microcytic anemia. Likely MAC multifactorial continue to monitor. 8. Chronic kidney disease stage III. Continue to monitor. 9. Fat-glzogqp-slmtdqgje diabetes mellitus. On sliding scale. Monitor blood sugars closely due to prednisone. 10. Chronic bilateral DVT with IVC filter. Continue rivaroxaban DVT Prophylaxis: Full anticoagulation with rivaroxaban Disposition: Pending clinical improvement. Patient is on day 5 of 7 of meropenem according to the recommendations of infectious disease after completion of meropenem, patient can be discharged as long as she is clinically stable. VS,Alexanderbone, I+O VS, Alexanderbone, I+O Laboratory Tests 03/18/21 05:29 Vital Signs Date Time Temp Pulse Resp B/P (MAP) Pulse Ox O2 Delivery O2 Flow Rate FiO2 03/18/21 12:00 97.8 71 20 145/72 (96) 95 Nasal Cannula 1.0 I&O- Last 24 Hours up to 6 AM 03/18/21 06:00 Intake Total 1510 ml Output Total 400 ml Balance 1110 ml SHE CERON DO Mar 18, 2021 13:13
[2021-03-18] MEDS: RIVAROXABAN 15 MG TAB (XARELTO) PO SCH (17:34)
[2021-03-18] MEDS: LATANOPROST 0.005% OPHTH SOLN 2.5 ML OU SCH (20:17)
[2021-03-19 01:05] VITALS: BP 140/64
[2021-03-19] MEDS: IPRATROPIUM 0.5MG/ALBUTEROL 2.5MG INH SOL UD 3ML (DUONEB) NEB SCH (01:06)
[2021-03-19] MEDS: SLF 3 ML SYR IV SCH ×3 (05:11→20:36)
[2021-03-19] MEDS: MEROPENEM INJ 1 GM in IV 1 EA IV SCH ×3 (05:11→20:35)
[2021-03-19 05:15] VITALS: BP 138/65
[2021-03-19 05:42] LABS: HEMATOCRIT 25.5 % (36.0-47.0); HEMOGLOBIN 8.2 g/dl (12.0-15.5); MEAN CORPUSCULAR HEMOGLOBIN 30.1 pg (27.0-33.0); MEAN CORPUSCULAR HGB CONC 32.2 g/dl (32.0-36.5); MEAN CORPUSCULAR VOLUME 93.8 fl (80.0-96.0); PLATELET COUNT, AUTOMATED 340 10^3/uL (150-450); RED BLOOD COUNT 2.72 10^6/uL (4.00-5.40); WHITE BLOOD COUNT 10.5 10^3/uL (4.0-10.0)
[2021-03-19 06:19] LABS: BLOOD UREA NITROGEN 21 MG/DL (7-18); CALCIUM LEVEL 8.8 MG/DL (8.8-10.2); CARBON DIOXIDE LEVEL 23 MEQ/L (21-32); CHLORIDE LEVEL 115 MEQ/L (98-107); CREATININE FOR GFR 0.83 MG/DL (0.55-1.30); GLOMERULAR FILTRATION RATE > 60.0 (>32); GLUCOSE, FASTING 134 MG/DL (70-100); POTASSIUM SERUM 4.3 MEQ/L (3.5-5.1); SODIUM LEVEL 144 MEQ/L (136-145)
[2021-03-19] MEDS: ADVAIR HFA 230/21MCG INHALER INH SCH ×2 (07:53→20:15)
[2021-03-19 08:00] VITALS: BP 143/68
[2021-03-19] MEDS: COMBIVENT RESPIMAT 100-20MCG INHALER 4GM INH SCH ×2 (08:00→20:00)
[2021-03-19] MEDS: SENOKOT S TAB PO SCH (09:00)
[2021-03-19] MEDS: HumaLOG INSULIN (NovoLOG) PER UNIT SC SCH ×4 (10:08→20:20)
[2021-03-19] MEDS: ACETAMINOPHEN 500 MG TAB PO SCH ×2 (10:08→20:35)
[2021-03-19] MEDS: allopurinoL 100 MG TAB PO SCH (10:09)
[2021-03-19] MEDS: predniSONE 20 MG TAB PO SCH (10:09)
[2021-03-19] MEDS: PANTOPRAZOLE 40MG TAB (PROTONIX) PO SCH (10:09)
[2021-03-19] MEDS: MAGNESIUM OXIDE 400MG TAB (MAG-OX) PO SCH (10:09)
[2021-03-19] MEDS: SUCRALFATE 1 GM TAB PO SCH ×3 (10:09→16:56)
[2021-03-19] MEDS: CALCITRIOL 0.25 MCG CAP (S0169) PO SCH (10:09)
[2021-03-19] MEDS: ASPIRIN 81MG ENTERIC TABLET PO SCH (10:09)
[2021-03-19] MEDS: BRINZOLAMIDE 1 % OPHTH SUSP (AZOPT) 10ML OU SCH ×2 (10:10→20:35)
[2021-03-19] MEDS: SODIUM CHLORIDE NASAL 0.65% SPRAY BTL (OCEAN) SCH ×3 (10:10→20:35)
--- NOTE | 2021-03-19 11:09 | IPN ---
INFECTIOUS DISEASE PROGRESS NOTE DATE: 03/18/2021 SUBJECTIVE: Gabby seems to be doing better today, but she still has some shortness of breath and wheezing. She states her breathing is somewhat improved. She would like to try without oxygen and oxygen saturations are usually around 90-92% without oxygen. Patient had two sputum sent for acid-fast bacilli (AFB) to rule out nontuberculous mycobacteria. 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 PHYSICAL EXAMINATION: GENERAL: Alert, oriented times three in no acute distress. HEART: Normal S1, S2. No murmurs. LUNGS: Decreased air entry bilaterally with few expiratory wheezes. ABDOMEN: Soft, nontender. No hepatosplenomegaly. EXTREMITIES: No clubbing, cyanosis or edema. HEENT: No cervical adenopathy. IMAGING: Chest CT with multifocal pneumonitis with bronchiectasis. IMPRESSION: 1. Pneumonia with three hospitalizations with pseudomonas mucoid colonies. Was not treated on the first admission. The second admission had Klebsiella treated with Keflex and meropenem and the patient was readmitted with persistent fever. The concern about nonbacterial pneumonia, including a nontuberculous mycobacteria was entertained due to the fact that patient has had those multifocal infiltrates for many years, close to two years, followed up by Dr. Yanez. Sputum acid-fast bacilli (AFB), smear and culture were sent, as well as QuantiFERON-TB Gold and fungal smear and culture. Continue meropenem. Will treat her for a total of seven days. The dose was increased to 1 gram every 8 hours, as the patient's creatinine is normal. 2. Chronic obstructive pulmonary disease (COPD) exacerbation. Currently on day #3 of prednisone with slight improvement. 3. Elevated troponin with premature ventricular contractions (PVCs). Patient on telemetry. 4. History of coronary artery disease. PLAN: Continue 48 hours of meropenem at a dose of 1 gram every 8 hours. Discontinue antibiotic on March 20, 2021. Hopefully by then, we can transfer her back to assisted living. Follow up on QuantiFERON-TB Gold prior to transfer back. If AFB smears are negative, my suspicion of tuberculosis is very low, although I am more concerned about nontuberculous mycobacteria.
[2021-03-19 12:00] VITALS: BP 148/69
--- NOTE | 2021-03-19 13:34 | IPNPDOC ---
Text Note Date of Service The patient was seen on 03/19/21. NOTE Subjective: No new acute events overnight. Patient stated that she is doing better today, less shortness of breath. No fever or chills Objective: GENERAL APPEARANCE: NAD HEENT: no scleral icterus, no JVD, EOMI CARDIOVASCULAR: S1S2 LUNGS: Diminished lung sounds bilaterally with mild wheezes ABDOMEN: soft & not tender w palpitation MUSCULOSKELETAL: no cyanosis, no swelling INTEGUMENT: no generalized pallor NEUROLOGICAL: cranial nerve function from 2-12 intact intact, follows commands, speech not dysarthric Assessment and plan Patient is 85 years old female with past medical history of COPD with bronchiectasis, coronary artery disease, diastolic CHF presented to the hospital with sepsis and multifocal pneumonia. Sepsis Secondary to multifocal pneumonia Resolved Hospital-acquired pneumonia/COPD Patient had 3 hospitalization with Pseudomonas and Klebsiella in the sputum There is concern from nontuberculous mycobacteria given multifocal infiltrates for many years. Await sputum acid-fast bacilli (AFB), smear, culture, QuantiFERON-TB Gold and fungal smear and culture ID recommended 7 days course of meropenem. Today day 6. Continue inhalers and p.o. steroids for 5 days in total Elevated troponin Trended down Most likely demand ischemia secondary to respiratory distress No any chest pain today Diastolic CHF Not in acute exacerbation Cardiac diet I's and O's Coronary artery disease Patient is stable diseases, continue Xarelto Stop aspirin Normocytic anemia Iron low, Venofer IV, oral iron supplementation B12, folate within normal limit Will check stool for occult blood Hemoglobin stable today Chronic kidney disease stage III Continue to monitor Type 2 diabetes Blood glucose level under control Continue insulin sliding scale Chronic bilateral DVT with IVC filter Continue Xarelto VS,Fishbone, I+O VS, Fishbone, I+O Laboratory Tests 03/19/21 05:30 Vital Signs Date Time Temp Pulse Resp B/P (MAP) Pulse Ox O2 Delivery O2 Flow Rate FiO2 03/19/21 08:00 75 20 143/68 (93) 90 03/19/21 08:00 97.3 Room Air 03/19/21 01:05 1.0 I&O- Last 24 Hours up to 6 AM 03/19/21 06:00 Intake Total 650 ml Balance 650 ml SILVIA ZALDIVAR DO Mar 19, 2021 13:34
[2021-03-19] MEDS: ALBUTEROL SULFATE 2.5 MG/0.5 ML INH NEB SOLN INH PRN (13:36)
[2021-03-19] MEDS: MAALOX 30 ML SUSP *UDC PO PRN (14:41)
[2021-03-19 16:00] VITALS: BP 148/69
[2021-03-19] MEDS ORDERED: IRON SUCROSE 200 MG in NS 100 ML IV ONE (16:00)
[2021-03-19] MEDS: RIVAROXABAN 15 MG TAB (XARELTO) PO SCH (17:45)
[2021-03-19 20:00] VITALS: BP 134/63
[2021-03-19] MEDS: IRON POLYSAC (NIFEREX) 150 MG CAP PO SCH (20:34)
[2021-03-19] MEDS: LATANOPROST 0.005% OPHTH SOLN 2.5 ML OU SCH (20:36)
[2021-03-20] VITALS (14 sets, daily range): BP systolic 128–154; BP diastolic 60–79; O2SAT 88–98
[2021-03-20] MEDS: MEROPENEM INJ 1 GM in IV 1 EA IV SCH ×3 (05:45→21:20)
[2021-03-20] MEDS: SLF 3 ML SYR IV SCH ×3 (05:48→21:20)
[2021-03-20 05:50] LABS: HEMATOCRIT 25.8 % (36.0-47.0); HEMOGLOBIN 8.2 g/dl (12.0-15.5); MEAN CORPUSCULAR HEMOGLOBIN 29.8 pg (27.0-33.0); MEAN CORPUSCULAR HGB CONC 31.8 g/dl (32.0-36.5); MEAN CORPUSCULAR VOLUME 93.8 fl (80.0-96.0); PLATELET COUNT, AUTOMATED 360 10^3/uL (150-450); RED BLOOD COUNT 2.75 10^6/uL (4.00-5.40); WHITE BLOOD COUNT 13.7 10^3/uL (4.0-10.0)
[2021-03-20 06:18] LABS: BLOOD UREA NITROGEN 22 MG/DL (7-18); CALCIUM LEVEL 8.3 MG/DL (8.8-10.2); CARBON DIOXIDE LEVEL 28 MEQ/L (21-32); CHLORIDE LEVEL 112 MEQ/L (98-107); GLOMERULAR FILTRATION RATE > 60.0 (>32); GLUCOSE, FASTING 115 MG/DL (70-100); POTASSIUM SERUM 4.2 MEQ/L (3.5-5.1); SODIUM LEVEL 141 MEQ/L (136-145)
[2021-03-20] MEDS: ADVAIR HFA 230/21MCG INHALER INH SCH ×2 (07:40→20:09)
[2021-03-20] MEDS: COMBIVENT RESPIMAT 100-20MCG INHALER 4GM INH SCH ×2 (07:41→20:00)
[2021-03-20] MEDS: SODIUM CHLORIDE NASAL 0.65% SPRAY BTL (OCEAN) SCH ×3 (09:17→21:20)
[2021-03-20] MEDS: BRINZOLAMIDE 1 % OPHTH SUSP (AZOPT) 10ML OU SCH ×2 (09:17→21:20)
[2021-03-20] MEDS: SENOKOT S TAB PO SCH (09:18)
[2021-03-20] MEDS: allopurinoL 100 MG TAB PO SCH (09:18)
[2021-03-20] MEDS: MAGNESIUM OXIDE 400MG TAB (MAG-OX) PO SCH (09:18)
[2021-03-20] MEDS: PANTOPRAZOLE 40MG TAB (PROTONIX) PO SCH (09:19)
[2021-03-20] MEDS: IRON POLYSAC (NIFEREX) 150 MG CAP PO SCH ×2 (09:19→21:19)
[2021-03-20] MEDS: SUCRALFATE 1 GM TAB PO SCH ×3 (09:19→16:48)
[2021-03-20] MEDS: ACETAMINOPHEN 500 MG TAB PO SCH ×2 (09:19→21:20)
[2021-03-20] MEDS: CALCITRIOL 0.25 MCG CAP (S0169) PO SCH (09:19)
[2021-03-20] MEDS: predniSONE 20 MG TAB PO SCH (09:19)
[2021-03-20] MEDS: HumaLOG INSULIN (NovoLOG) PER UNIT SC SCH ×4 (09:21→20:09)
[2021-03-20] MEDS ORDERED: PRED5PAK PO (10:27)
--- NOTE | 2021-03-20 11:12 | IPNPDOC ---
Text Note Date of Service The patient was seen on 03/20/21. NOTE Subjective: No new acute events overnight. Patient denies fever, chills, nelly sea, vomiting, diarrhea or dysuria Objective: GENERAL APPEARANCE: NAD HEENT: no scleral icterus, no JVD, EOMI CARDIOVASCULAR: S1S2 LUNGS: Diminished lung sounds bilaterally ABDOMEN: soft & not tender w palpitation MUSCULOSKELETAL: no cyanosis, no swelling INTEGUMENT: no generalized pallor NEUROLOGICAL: cranial nerve function from 2-12 intact intact, follows commands, speech not dysarthric Assessment and plan Patient is 85 years old female with past medical history of COPD with bronchiectasis, coronary artery disease, diastolic CHF presented to the hospital with sepsis and multifocal pneumonia. Sepsis Secondary to multifocal pneumonia Resolved Hospital-acquired pneumonia/COPD Patient had 3 hospitalization with Pseudomonas and Klebsiella in the sputum There is concern from nontuberculous mycobacteria given multifocal infiltrates for many years. Await sputum acid-fast bacilli (AFB), smear, culture, QuantiFERON-TB Gold and fungal smear and culture ID recommended 7 days course of meropenem. Today day 7 Continue inhalers and p.o. steroids for 5 days in total Elevated troponin Trended down Most likely demand ischemia secondary to respiratory distress No any chest pain today Diastolic CHF Not in acute exacerbation Cardiac diet I's and O's Coronary artery disease continue Xarelto Normocytic anemia Iron low, Venofer IV, oral iron supplementation B12, folate within normal limit Await stool for occult blood Hemoglobin stable today Chronic kidney disease stage III Continue to monitor Type 2 diabetes Blood glucose level under control Continue insulin sliding scale Chronic bilateral DVT with IVC filter Continue Xarelto VS,Fishbone, I+O VS, Fishbone, I+O Laboratory Tests 03/20/21 05:34 Vital Signs Date Time Temp Pulse Resp B/P (MAP) Pulse Ox O2 Delivery O2 Flow Rate FiO2 03/20/21 08:00 97.6 76 24 154/74 (100) 92 Room Air 03/20/21 04:00 2.0 I&O- Last 24 Hours up to 6 AM 03/20/21 06:00 Intake Total 350 ml Output Total 0 ml Balance 350 ml SILVIA ZALDIVAR DO Mar 20, 2021 11:12
[2021-03-20] MEDS: RIVAROXABAN 15 MG TAB (XARELTO) PO SCH (18:05)
[2021-03-20] MEDS: LATANOPROST 0.005% OPHTH SOLN 2.5 ML OU SCH (21:20)
[2021-03-21] MEDS: MAALOX 30 ML SUSP *UDC PO PRN (01:26)
[2021-03-21] MEDS: SLF 3 ML SYR IV SCH (05:28)
[2021-03-21] MEDS: MEROPENEM INJ 1 GM in IV 1 EA IV SCH (05:28)
[2021-03-21 05:34] LABS: HEMATOCRIT 26.5 % (36.0-47.0); HEMOGLOBIN 8.6 g/dl (12.0-15.5); MEAN CORPUSCULAR HEMOGLOBIN 30.2 pg (27.0-33.0); MEAN CORPUSCULAR HGB CONC 32.5 g/dl (32.0-36.5); PLATELET COUNT, AUTOMATED 373 10^3/uL (150-450); RED BLOOD COUNT 2.85 10^6/uL (4.00-5.40); WHITE BLOOD COUNT 15.8 10^3/uL (4.0-10.0)
[2021-03-21 05:56] LABS: BLOOD UREA NITROGEN 23 MG/DL (7-18); CALCIUM LEVEL 8.3 MG/DL (8.8-10.2); CARBON DIOXIDE LEVEL 27 MEQ/L (21-32); CHLORIDE LEVEL 110 MEQ/L (98-107); CREATININE FOR GFR 0.94 MG/DL (0.55-1.30); GLOMERULAR FILTRATION RATE > 60.0 (>32); GLUCOSE, FASTING 124 MG/DL (70-100); POTASSIUM SERUM 4.2 MEQ/L (3.5-5.1); SODIUM LEVEL 141 MEQ/L (136-145)
[2021-03-21 06:00] VITALS: BP 155/80
[2021-03-21] MEDS: COMBIVENT RESPIMAT 100-20MCG INHALER 4GM INH SCH (07:19)
[2021-03-21] MEDS: ADVAIR HFA 230/21MCG INHALER INH SCH (07:19)
[2021-03-21] MEDS ORDERED: TORS10TA3 PO (08:00)
[2021-03-21] MEDS: SUCRALFATE 1 GM TAB PO SCH ×2 (08:15→11:26)
[2021-03-21] MEDS: HumaLOG INSULIN (NovoLOG) PER UNIT SC SCH ×2 (08:15→11:26)
[2021-03-21] MEDS: PANTOPRAZOLE 40MG TAB (PROTONIX) PO SCH (08:15)
[2021-03-21] MEDS: IRON POLYSAC (NIFEREX) 150 MG CAP PO SCH (08:15)
[2021-03-21] MEDS: SENOKOT S TAB PO SCH ×2 (08:15→08:19)
[2021-03-21] MEDS: allopurinoL 100 MG TAB PO SCH (08:15)
[2021-03-21] MEDS: CALCITRIOL 0.25 MCG CAP (S0169) PO SCH (08:15)
[2021-03-21] MEDS: MAGNESIUM OXIDE 400MG TAB (MAG-OX) PO SCH (08:16)
[2021-03-21] MEDS: BRINZOLAMIDE 1 % OPHTH SUSP (AZOPT) 10ML OU SCH (08:17)
[2021-03-21] MEDS: ACETAMINOPHEN 500 MG TAB PO SCH (08:17)
[2021-03-21] MEDS: SODIUM CHLORIDE NASAL 0.65% SPRAY BTL (OCEAN) SCH (08:17)
[2021-03-21] MEDS ORDERED: TORSEMIDE 10 MG TABLET PO SCH (09:00)
[2021-03-21 10:33] VITALS: O2SAT 93
--- NOTE | 2021-03-21 14:49 | DS.PDOC ---
Discharge Summary General Date of Admission Mar 13, 2021 at 22:20 Date of Discharge 03/21/21 Discharge Summary PROCEDURES PERFORMED DURING STAY: [None]. ADMITTING DIAGNOSES: Sepsis Hospital-acquired pneumonia/COPD Elevated troponin Diastolic CHF Coronary artery disease Normocytic anemia Type 2 diabetes Chronic kidney disease stage III DISCHARGE DIAGNOSES: Sepsis Hospital-acquired pneumonia/COPD Elevated troponin Diastolic CHF Coronary artery disease Normocytic anemia Type 2 diabetes Chronic kidney disease stage III GI bleed COMPLICATIONS/CHIEF COMPLAINT: Multifocal Pneumonia,Sepsis. 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. The patient has had problems with recurrent infections since 02/13. She was hospitalized until the with pseudomonas pneumonia. The culture did not result until after her discharge and the patient was treated with ceftriaxone and doxycycline. The pseudomonas was a mucoid colony. She was readmitted at [facility] on 03/07 to 03/11, with Klebsiella pneumonia. She was treated with IV meropenem for three days followed by Keflex. The patient had worsening diarrhea from her baseline and a dry cough and therefore was sent back to the hospital to be admitted. She had a temperature of 101.6 on admission and a white count of 13.4. The patient was treated with IV meropenem. Since admission, her cough and shortness of breath have improved. She was down to 1 liter oxygen. HOSPITAL COURSE: During the hospital stay the following issue addressed Patient was diagnosed with sepsis Secondary to multifocal pneumonia. 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 Await sputum acid-fast bacilli (AFB), smear, culture, QuantiFERON-TB Gold and fungal smear and culture negative ID recommended 7 days course of meropenem. Patient received inhalers and p.o. steroids for 5 days in total Elevated troponin Trended down Most likely demand ischemia secondary to respiratory distress No any chest pain today Diastolic CHF Cardiac diet I's and O's BNP was elevated to over 5000. Patient will need echo in the outpatient settings with continuation of torsemide 10 mg daily Coronary artery disease continue Xarelto Normocytic anemia Iron low, Venofer IV, oral iron supplementation B12, folate within normal limit stool for occult blood positive. Patient will need GI consult in the outpatient settings Hemoglobin stable today Chronic kidney disease stage III Continue to monitor Type 2 diabetes Blood glucose level under control Continue insulin sliding scale Chronic bilateral DVT with IVC filter Continue Xarelto DISCHARGE MEDICATIONS: Please see below. ALLERGIES: Please see below. PHYSICAL EXAMINATION ON DISCHARGE: VITAL SIGNS: Please see below. HEENT: no scleral icterus, no JVD, EOMI CARDIOVASCULAR: S1S2 LUNGS: Diminished lung sounds bilaterally ABDOMEN: soft & not tender w palpitation MUSCULOSKELETAL: no cyanosis, no swelling INTEGUMENT: no generalized pallor NEUROLOGICAL: cranial nerve function from 2-12 intact intact, follows commands, speech not dysarthric LABORATORY DATA: Please see below. IMAGING: [facility] NAME: SILVIA BAER DATE OF : 1935 BUSINESS NUMBER: [id number] AGE: 85 SEX: F REPORT #: [id number] ROOM: [facility] TECHNOLOGIST: RENETTA DOCTOR: NATALIYA DE LUNA MD Ordered for Date&Time: 03/13/212021 cc: [~ rep ct ivnm] Service Date&Time: 03/13/212028 This report is in Signed status. Interpretation performed by [facility]. Thank you for having your radiology procedures performed at [facility] RADIOLOGY REPORT Date&Time printed: [~ rep prt dt last] [~ rep prt tm last] Page 2 of 2 [place] [id number] RADIOLOGY REPORT This report is in Signed status. Interpretation performed by [facility]. Thank you for having your radiology procedures performed at [facility] RADIOLOGY REPORT Date&Time printed: [~ rep prt dt last] [~ rep prt tm last] Page 1 of 2 Exam: CT Chest Without Contrast; Diagnostic Exam date and time: 03/13/2021 8:29 PM Age: 85 years old Clinical indication: Other: Pneumonia TECHNIQUE: Imaging protocol: Diagnostic computed tomography of the chest without contrast. 3D rendering (Not supervised by radiologist): MIP and/or 3D reconstructed images were created by the technologist. Radiation optimization: All CT scans at this facility use at least one of these dose optimization techniques: automated exposure control; mA and/or kV adjustment per patient size (includes targeted exams where dose is matched to clinical indication); or iterative reconstruction. COMPARISON: CT Chest without contrast 03/07/2021 3:54 PM FINDINGS: Tubes, catheters and devices: Pacemaker in position from the left. Lungs: Reticulonodular infiltrates, greatest in the right upper lobe with scattered fibro-atelectatic change, greatest in the bases with areas of moderate atelectasis or consolidation in the lower lobes. Pleural spaces: Trace right pleural effusion. Heart: Upper normal pericardial fluid. 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 Mild hiatal hernia. Pulmonary arteries: The main pulmonary artery measures 29 mm. Aorta: The ascending thoracic aorta measures 30 mm. Great vessels off aortic arch: With question of proximal stenosis within the proximal right subclavian artery. Lymph nodes: There are small mediastinal nodes which are upper normal. Gallbladder and bile ducts: Status post cholecystectomy. Bones/joints: Slightly decreased height of T7-T9 and slight anterior wedge configuration of T11 which appear to be chronic and are unchanged from 03/07/2021. Soft tissues: Unremarkable. IMPRESSION: 1. Reticulonodular pulmonary infiltrates, greatest in the right upper lobe with scattered fibro-atelectatic change, greatest in the bases with areas of moderate atelectasis or consolidation in the lower lobes and trace right pleural effusion consistent with pneumonia. Findings are increased in the left lower lobe since the prior study and somewhat decreased in the right upper lobe. 2. Mild hiatal hernia. 3. 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 4. Decreased pericardial fluid since the prior study with upper normal residual remaining. Electronically signed by: Brennan Davis On 03/13/2021 21:54:32 PM DD: BRENNAN DAVIS MD 03/13/212028 DT: JOVANI 03/13/212153 DS: MEGAN 03/13/212153 [~ rep ct labl] PROGNOSIS: Fair ACTIVITY: [As tolerated]. DIET: Cardiac DISPOSITION: [facility]. ITEMS TO FOLLOWUP ON ON OUTPATIENT: Follow-up with washing machine assembler, PCP, GI team and ID specialist DISCHARGE CONDITION: [Stable]. TIME SPENT ON DISCHARGE: 40 minutes. Vital Signs/I&Os Vital Signs Date Time Temp Pulse Resp B/P (MAP) Pulse Ox O2 Delivery O2 Flow Rate FiO2 03/21/21 10:33 93 Room Air 03/21/21 06:00 98.0 70 22 155/80 (105) 03/20/21 04:00 2.0 I&O- Last 24 Hours up to 6 AM 03/21/21 06:00 Intake Total 650 ml Output Total 650 ml Balance 0 ml Laboratory Data Labs 24H Laboratory Tests 2 03/20/21 16:49: Coronavirus (COVID-19)(PCR) NEGATIVE 03/20/21 16:53: Bedside Glucose (Misc Panel) 207H 03/20/21 20:04: Bedside Glucose (Misc Panel) 229H 03/21/21 05:07: Nucleated Red Blood Cells % (auto) 0.1H, Anion Gap 4L, Glomerular Filtration Rate > 60.0, Calcium Level 8.3L CBC/BMP Laboratory Tests 03/21/21 05:07 FSBS Laboratory Tests Test 03/20/21 16:53 03/20/21 20:04 Range/Units Bedside Glucose (Misc Panel) 207 229 83-110 MG/DL Microbiology Microbiology 03/20/21 Stool Occult Blood (ROBLES) - Final, Complete 03/17/21 Fungal Smear, Received Pending 03/17/21 Fungal Culture, Received Pending 03/17/21 Acid Fast Stain - Final, Resulted 03/17/21 Mycobacterial Culture, Resulted Pending 03/14/21 Acid Fast Stain - Final, Resulted 03/14/21 Mycobacterial Culture, Resulted Pending 03/14/21 Gram Stain - Final, Complete 03/14/21 Sputum Culture - Final, Complete 03/13/21 Blood Culture - Final, Complete NO GROWTH AFTER 5 DAYS 03/13/21 Respiratory Virus Panel (PCR) (ROBLES) - Final, Complete 03/13/21 Blood Culture - Final, Complete NO GROWTH AFTER 5 DAYS 03/13/21 Blood Culture - Final, Complete NO GROWTH AFTER 5 DAYS Discharge Medications Scheduled Allopurinol (Allopurinol) 100 Mg Tablet, 100 MG PO DAILY, (Reported) Bimatoprost (Lumigan) 0.01% 2.5ML Drops, 1 DROP OU QHS, (Reported) Brinzolamide (Azopt) 1% 10ML Drops.susp, 1 DROP OU BID, (Reported) Calcitriol (Calcitriol) 0.25 Mcg Capsule, 0.25 MCG PO DAILY, (Reported) Cholecalciferol (Vitamin D3) (Vitamin D3) 50 Mcg Capsule, 50 MCG PO DAILY, (Reported) Clotrimazole (Clotrimazole) 10 Mg Riana, 10 MG PO QID, (Reported) 0900, 1300, 1700, 2100: LAST DOSE WILL BE GIVEN ON 03/16/21 @1300 Ferrous Gluconate (Ferrous Gluconate) 324 Mg Tablet, 324 MG PO DAILY, (Reported) Pantoprazole Sodium (Pantoprazole Sodium) 40 Mg Tablet.dr, 40 MG PO DAILY, (Reported) Prednisone (Prednisone) 5 Mg Tab.ds.pk, 0 PO ASDIRECTED 6 day dose pack taper Rivaroxaban (Xarelto) 15 Mg Tablet, 15 MG PO QPM, (Reported) 1700 Salmeterol/Fluticasone (Advair 500-50 Diskus) 1 Each Blst.w.dev, 1 PUFF INH BID, (Reported) Sennosides/Docusate Sodium (Senna-S Tablet) 1 Each Tablet, 2 TAB PO DAILY, (Reported) Sodium Bicarbonate (Sodium Bicarbonate) 325 Mg Tablet, 325 MG PO BID, (Reported) Sucralfate (Sucralfate) 1 Gm Tablet, 1 GM PO AC, (Reported) Torsemide (Torsemide) 10 Mg Tablet, 10 MG PO DAILY Vit C/E/Zn/Coppr/Lutein/Zeaxan (Preservision Areds 2 Softgel) 1 Each Capsule, 1 CAP PO BID, (Reported) Scheduled PRN Acetaminophen (Acetaminophen ER) 650 Mg Tablet.er, 650 MG PO Q8H PRN for PAIN/FEVER, (Reported) Albuterol Sulf (Albuterol Sulfate) 2.5 Mg/3 Ml Vial.neb, 2.5 MG INH QID PRN for SHORTNESS OF BREATH, (Reported) Diclofenac Sodium (Diclofenac Sodium) 1% 100GM Gel..gram., 4 GM TOP QID PRN for PAIN, (Reported) APPLY TO AREAS OF MUSCLE ACHE Magnesium Hydroxide (Milk of Magnesia) 400 Mg/5 Ml Oral.susp, 2,400 MG PO DAILY PRN for CONSTIPATION, (Reported) Nitroglycerin (Nitrostat) 0.4 Mg Tab.subl, 0.4 MG SL NITRO PRN for CHEST PAIN, (Reported) Ondansetron HCl (Zofran) 4 Mg Tablet, 4 MG PO Q6H PRN for NAUSEA OR VOMITING, (Reported) Allergies Coded Allergies: carvedilol (Verified Allergy, Severe, difficulty breathing, 03/07/21) pitavastatin (Verified Allergy, Severe, anaphylaxis, 03/07/21) Penicillins (Verified Allergy, Mild, rash, 03/07/21) Quinolones (Verified Allergy, Mild, rash, 03/07/21) DG Inhibitors (Verified Adverse Reaction, Intermediate, kidney problems / cough, 03/07/21) dexamethasone (Verified Adverse Reaction, Intermediate, eyes burn, 03/07/21) dorzolamide (Verified Adverse Reaction, Intermediate, eyes burn, 03/07/21) neomycin (Verified Adverse Reaction, Intermediate, eyes burn, 03/07/21) polymyxin B (Verified Adverse Reaction, Intermediate, eyes burn, 03/07/21) timolol (Verified Adverse Reaction, Intermediate, eyes burn, 03/07/21) colesevelam (Verified Adverse Reaction, Mild, myalgia, 03/07/21) ezetimibe (Verified Adverse Reaction, Mild, myalgia, 03/07/21) losartan (Verified Adverse Reaction, Mild, nausea / no appetite, 03/07/21) SILVIA ZALDIVAR DO Mar 21, 2021 14:49
[2021-03-26 12:08] LABS: BODY FLUID CULTURE Not indicated. (.); LEGIONELLA ANTIGEN URINE Negative (Negative); ORGANISM ID Not indicated. (.); SPECIMEN SOURCE Urine (.); URINE STREP PNEUMONIAE ANTIGEN Negative (Negative)
== END 2021-03-21 11:55 | DRG 871 ==
LOC: M ED 19:01 → M ED INP 22:20 → M ICU 03-14 00:30 → M PCU 03-14 15:33 → M MSPAV 03-20 17:30
PROVIDERS: ADMIT Internal Medicine; ATTEND Internal Medicine
DX: A41.9 Sepsis, unspecified organism (principal); J18.9 Pneumonia, unspecified organism; I50.32 Chronic diastolic (congestive) heart failure; I13.0 Hypertensive heart and chronic kidney disease with heart failure and stage 1 through stage 4 chronic kidney disease, or unspecified chronic kidney disease; J44.0 Chronic obstructive pulmonary disease with (acute) lower respiratory infection; I24.8 Other forms of acute ischemic heart disease; Y95 Nosocomial condition; R19.7 Diarrhea, unspecified; I25.10 Atherosclerotic heart disease of native coronary artery without angina pectoris; Z95.5 Presence of coronary angioplasty implant and graft; I27.20 Pulmonary hypertension, unspecified; I35.8 Other nonrheumatic aortic valve disorders; N18.30 Chronic kidney disease, stage 3 unspecified; E11.22 Type 2 diabetes mellitus with diabetic chronic kidney disease; E83.42 Hypomagnesemia; Z66 Do not resuscitate; K21.9 Gastro-esophageal reflux disease without esophagitis; H40.9 Unspecified glaucoma; H35.30 Unspecified macular degeneration; Z90.49 Acquired absence of other specified parts of digestive tract; Z95.0 Presence of cardiac pacemaker; I44.1 Atrioventricular block, second degree; Z95.828 Presence of other vascular implants and grafts; Z86.718 Personal history of other venous thrombosis and embolism; Z98.41 Cataract extraction status, right eye; Z98.42 Cataract extraction status, left eye; D64.9 Anemia, unspecified; Z79.01 Long term (current) use of anticoagulants; Z79.899 Other long term (current) drug therapy; Z88.1 Allergy status to other antibiotic agents; Z88.0 Allergy status to penicillin; Z88.8 Allergy status to other drugs, medicaments and biological substances

== ENCOUNTER → 2021-03-31 | Outpatient (REF) | payer MEDICARE ==
[~2021-03-31] MED LIST changes: +AZIT-12 PO; +CARA1TAB6 PO; -CEFD1CAP8 PO; +CEFD300C41 PO; +CEFD300CAP PO; +CEFU50TA PO; +ETHA1TAB2 PO; +FERR325T18 PO; +FLUTISP NARES; +INSUHUMDS SC; +IPRAINH INH; -KLOR10TA76 PO; +LASI20TA3 PO; +LASI40TA9 PO; -LEVO250T12 PO; +LEVO250T3 PO; +LOPE2CAP PO; +MUCI600T31 PO; +OMEP-173 PO; -OMEP-218 PO; -OMEP-221 PO; +OMEP40CA5 PO; +POTA-136 PO; +POTA-151 PO; -POTA20TA6 PO; +PRED5PAK PO; +RIFA30CA PO; +TESS100C PO; +XALA0.007 OU; +[UNRECOGNIZED DRUG - CODE] PO
[2021-03-31 11:43] LABS: CALCIUM LEVEL 9.2 MG/DL (8.8-10.2); CREATININE FOR GFR 1.28 MG/DL (0.55-1.30); GLOMERULAR FILTRATION RATE 42.4 (>32); MAGNESIUM LEVEL 1.7 MG/DL (1.8-2.4); POTASSIUM SERUM 3.6 MEQ/L (3.5-5.1)
== END ==
PROVIDERS: ATTEND Physician Assistant
DX: I50.32 Chronic diastolic (congestive) heart failure (principal); E83.42 Hypomagnesemia

== ENCOUNTER → 2021-04-28 | Outpatient (REF) | payer MEDICARE ==
[~2021-04-28] MED LIST changes: -AZIT-12 PO; -CARA1TAB6 PO; +CEFD1CAP8 PO; -CEFD300C41 PO; -CEFD300CAP PO; -CEFU50TA PO; -ETHA1TAB2 PO; -FERR325T18 PO; -FLUTISP NARES; -INSUHUMDS SC; -IPRAINH INH; +KLOR10TA76 PO; -LASI20TA3 PO; -LASI40TA9 PO; +LEVO250T12 PO; -LEVO250T3 PO; -LOPE2CAP PO; -MUCI600T31 PO; -OMEP-173 PO; +OMEP-218 PO; +OMEP-221 PO; -OMEP40CA5 PO; -POTA-136 PO; -POTA-151 PO; +POTA20TA6 PO; -RIFA30CA PO; -TESS100C PO; -XALA0.007 OU; -[UNRECOGNIZED DRUG - CODE] PO
== END ==
LOC: M SFHCPLAZ 17:43
PROVIDERS: ATTEND Internal Medicine Infectious Disease
DX: J18.9 Pneumonia, unspecified organism (principal)
CPT/HCPCS: 87116; 87206; G0463

== ENCOUNTER → 2021-04-30 | Outpatient (REF) | payer MEDICARE | PROVIDERS: ATTEND Internal Medicine | DX: J18.9 Pneumonia, unspecified organism (principal) ==

== ENCOUNTER → 2021-05-12 | Outpatient (REF) | payer MEDICARE | PROVIDERS: ATTEND Internal Medicine Infectious Disease | DX: J18.9 Pneumonia, unspecified organism (principal) ==

== ENCOUNTER → 2021-06-02 | Outpatient (REF) | payer MEDICARE ==
[~2021-06-02] MED LIST changes: -KLOR10TA76 PO; +POTA-136 PO
[2021-06-02 10:36] LABS: BASO % 0.5 % (0.0-1.0); EOS # 0.1 10^3/uL (0.0-0.5); EOS % 1.4 % (0.0-3.0); HEMATOCRIT 36.5 % (36.0-47.0); HEMOGLOBIN 11.7 g/dl (12.0-15.5); LYMPH # 1.7 10^3/uL (1.5-5.0); LYMPH % 21.4 % (24.0-44.0); MEAN CORPUSCULAR HGB CONC 32.1 g/dl (32.0-36.5); MEAN CORPUSCULAR VOLUME 90.3 fl (80.0-96.0); MONO # 0.6 10^3/uL (0.0-0.8); MONO % 8.1 % (2.0-8.0); NEUTROPHILS # 5.4 10^3/uL (1.5-8.5); NEUTROPHILS % 68.2 % (36.0-66.0); PLATELET COUNT, AUTOMATED 249 10^3/uL (150-450); RED BLOOD COUNT 4.04 10^6/uL (4.00-5.40); WHITE BLOOD COUNT 7.9 10^3/uL (4.0-10.0)
[2021-06-02 12:29] LABS: ALBUMIN 2.9 GM/DL (3.2-5.2); CALCIUM LEVEL 9.2 MG/DL (8.8-10.2); CREATININE FOR GFR 1.66 MG/DL (0.55-1.30); GLOMERULAR FILTRATION RATE 31.3 (>32); PHOSPHORUS LEVEL 3.5 MG/DL (2.5-4.9); PTH INTACT 31.8 PG/ML (18.5-88.0); URIC ACID 10.7 MG/DL (2.6-6.0)
[2021-06-02 15:50] LABS: APPEARANCE, URINE TURBID (CLEAR); BACTERIA, URINE AUTO 3+ (NEGATIVE); BILIRUBIN, URINE AUTO NEGATIVE (NEGATIVE); BLOOD, URINE BLOOD 1+ (NEGATIVE); COLOR, URINE AMBER (YELLOW); GLUCOSE, URINE (UA) AUTO NEGATIVE (NEGATIVE); KETONE, URINE AUTO NEGATIVE (NEGATIVE); LEUKOCYTE ESTERASE, URINE AUTO 3+ (NEGATIVE); NITRITE, URINE AUTO NEGATIVE (NEGATIVE); PROTEIN, URINE AUTO 1+ mg/dL (NEGATIVE); RBC, URINE AUTO 0 /HPF (0-3); SPECIFIC GRAVITY URINE AUTO 1.005 (1.002-1.035); SQUAMOUS EPITHELIAL CELL UR AU 6 /HPF (0-6); UROBILINOGEN, URINE AUTO 0.2 mg/dL (0.0-2.0); WBC, URINE AUTO TNTC /HPF (0-3)
== END ==
PROVIDERS: ATTEND Internal Medicine Nephrology
DX: N18.32 Chronic kidney disease, stage 3b (principal); D50.9 Iron deficiency anemia, unspecified; M1A.30X0 Chronic gout due to renal impairment, unspecified site, without tophus (tophi)

== ENCOUNTER 2021-06-22 09:01 | Inpatient (IN) | payer MEDICARE ==
[~2021-06-22] VITALS: Ht 167.6 cm; Wt 61.0 kg
[2021-06-22 10:11] LABS: BASO % 0.2 % (0.0-1.0); EOS % 0.2 % (0.0-3.0); HEMOGLOBIN 9.6 g/dl (12.0-15.5); LYMPH # 1.2 10^3/uL (1.5-5.0); LYMPH % 8.7 % (24.0-44.0); MEAN CORPUSCULAR HEMOGLOBIN 28.5 pg (27.0-33.0); MEAN CORPUSCULAR HGB CONC 33.1 g/dl (32.0-36.5); MEAN CORPUSCULAR VOLUME 86.1 fl (80.0-96.0); MONO # 1.1 10^3/uL (0.0-0.8); MONO % 7.8 % (2.0-8.0); NEUTROPHILS # 11.1 10^3/uL (1.5-8.5); NEUTROPHILS % 82.5 % (36.0-66.0); PLATELET COUNT, AUTOMATED 227 10^3/uL (150-450); RED BLOOD COUNT 3.37 10^6/uL (4.00-5.40); WHITE BLOOD COUNT 13.4 10^3/uL (4.0-10.0)
--- NOTE | 2021-06-22 10:12 | REP ---
INDICATION: FEVER COMPARISON: 03/13/2021 TECHNIQUE: PA and lateral. FINDINGS: The mediastinum and cardiac silhouette are normal. The lung ernandez demonstrate patchy lower lobe opacities (left greater than right) with small effusion. The skeletal structures are intact and normal. IMPRESSION: Acute bibasilar opacities with small pleural effusion. <Electronically signed by Lars Tiwari > 06/22/21 [id number]
--- OUTSIDE RECORDS SUMMARY | 2021-06-22 10:36 | CCD ---
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 Active confirmed 39769236 Problem Chronic heart failure with preserved ejection fraction I50.32 Active confirmed 279379680 Problem Macular degeneration (senile) of retina, unspecified H35.30 Active confirmed 245163375 Problem Pacemaker Z95.0 Active confirmed 656049570 Problem 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 Active conf irmed 26566497 Problem 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 Active confirmed 165784631 Problem 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 Active confirmed 330772010 Problem Glaucoma, unspecified glaucoma type, unspecified lateralit y H40.9 Active confirmed 84642767 Problem Chronic deep vein thrombosis (DVT) of both lower extremities, unspecified vein I82.503 Active confirmed 1881874791539 06 Problem Gout, unspecified cause, unspecified chronicity, unspecified site M10.9 Active confirmed 48810380 Problem Osteoarthritis, unspecified osteoarthritis type, unspecified site M19.90 Active confirmed 367713671 ALLERGIES Allergen (clinical drug ingredient) Drug/Non Drug Allergy do cumented on EMR Reaction Allergy Type Onset Date Status dexamethasone Dexamethasone(NDC Code:[address]-99) Rash Drug A llergy Active Statins muscle pain Non Drug Allergy Active Penicillin (For Allergies Use Only) Hives Drug Allerg y 03/31/2021 Active ENCOUNTERS from 1935 to 2021-05-29 Encounter Location Date Provider Diagnosis [facility] Amy Cruz[address] [facility] [phone] [place] [address] May, Ez Arnold IMMUNIZATIONS No Information SOCIAL HISTORY Tobacco Use: Social History Observation Description Date Details (start date - stop date) Former Smoker Sex Assigned At : Social History Observation Description Sex Assigned At Unknown Education: Question Answer Notes Level of Education: Finished College Audit Question Answer Notes Total Score: 0 Interpretation: Alcohol Education Language: Question Answer Notes Languages spoken: Cypriot Hinduism: Question Answer Notes Hinduism [employer] Drug and Alcohol Question Answer Notes Total Score: 0 Interpretation: No problems reported Alcohol Screening: Question Answer Notes Did you have a drink containing alcohol in the past year? No Points 0 Interpretation Negative Tobacco Use: Question Answer Notes Are you a: former smoker 50 YEARS 1 PACK- 1 1 /2 PACK A DAY How long has it been since you last smoked? 5-10 years 10/2001 REASON FOR REFERRAL No Information VITAL SIGNS No information MEDICATIONS Medication SIG (Take, Route, Frequency, Duration) Notes Start Da te End Date Status Ferrous Sulfate 325 (65 Fe) MG 1 tablet Orally Once a day for 30 day( s) Active Allopurinol 100 MG 1 tablet Orally Once a day Active Vitamin D (Cholecalciferol) 10 MCG (400 UNIT) 1 tablet Orally Once a day for 30 day(s) Active Xarelto 15 MG Oral Active EQ Senna-S 8.6-50 MG 2 tabs Orally Once a day for 90 day(s) May, Active Advair Diskus 500-50 MCG/DOSE 1 puff Inhalation Twice a day Active Acetaminophen Extra Strength 2 tablets as needed for pain bid fo r 30 days Apr, Active Calcitriol 0.25 MCG Oral for 30 Act valentin Sucralfate 1 GM 1 tablet on an empty stomach 1 hour before meals orally three times daily for 90 day(s) Active Albuterol Sulfate HFA 108 (90 Base) MCG/ACT Inhalation for 25 Active Pantoprazole Sodium 40 MG Oral for 30 Active Senna 8.6 MG 2 tablets at bedtime as needed Orally Once a day for 3 0 day(s) Active Nitroglycerin 0.4 MG as directed Sublingual Active PreserVision AREDS - 1 cap Orally Daily Active Sodium Bicarbonate 325 MG as directed Orally Active Mucinex 600 MG 1 tablet as needed Orally every 12 hrs Active Torsemide 10 MG 1 tablet Orally Once a day for 30 Days Active Flonase Allergy Relief 50 MCG/ACT 1 spray in each nost ril Nasally Once a day for 30 day(s) Active Azopt 1 % Ophthalmic for 50 Active Diclofenac Sodium 1 % External for 25 Active Albuterol Sulfate (2.5 MG/3ML) 0.083% 3 ml as needed Inhalation brandon ry 6 hrs Active Milk of Magnesia 400 MG/5ML 5 ml at least 4 hours betw een doses as needed Orally Four times a day Active PROCEDURES No Information RESULTS No Results REASON FOR VISIT Senna S MEDICAL (GENERAL) HISTORY Type Description Date Medical History COPD Medical History type 2 DM Medical History glucoma Medical History Macular degeneration Medical History Primary hypertension Medical History Mycobacterium avium complex on sputum culture from 03/14/[address] reticulonodular infiltrates right upper lobe Surgical History Cataract surgery and implants Surgical History RCA stent 2004 Surgical History breast biopsy b/l (fibrocystic) Surgical History appendectomy Surgical History hysterectomy Surgical History cholecystectomy Surgical History colon resection (due to severe polyps) 2 000 Hospitalization History Pneumonia Hospitalization History RLE fracture requiring rehab Goals Section No Information Health Concerns No Information MEDICAL EQUIPMENT No Information MENTAL STATUS No Information FUNCTIONAL STATUS No Information ASSESSMENTS No Information PLAN OF TREATMENT Medication Medication Name Sig Start Date Stop Date Advair Diskus 500-50 MCG/DOSE 1 puff Inhalation Twice a day Sucralfate 1 GM 1 tablet on an empty stomach 1 hour before meals orally three times daily for 90 day(s) Albuterol Sulfate (2.5 MG/3ML) 0.083% 3 ml as needed Inhalation every 6 hrs Nitroglycerin 0.4 MG as directed Sublingual Flonase Allergy Relief 50 MCG/ACT 1 spray in each nost ril Nasally Once a day for 30 day(s) EQ Senna-S 8.6-50 MG 2 tabs Orally Once a day for 90 day(s) 22 S ep, 2020 Xarelto 15 MG Oral Mucinex 600 MG 1 tablet as needed Orally every 12 hrs Torsemide 10 MG 1 tablet Orally Once a day for 30 Days Senna 8.6 MG 2 tablets at bedtime as needed Orally Once a day for 30 day(s) Next Appt Details Provider Name:Ez Arnold, 2021-10-2 9 01:30:00 PM, [address] [facility], , [place], [address], Insurance Providers Payer Name Payer Address Payer Phone Insured Name Patient Relati onship to Insured Coverage Start Date Coverage End Date [employer] [facility] CLAIM DIV [id number] [facility] [phone] SILVIA BAER MEDICARE Part A and B [address] [facility] [id number] SILVIA BAER
--- OUTSIDE RECORDS SUMMARY | 2021-06-22 10:36 | CCD ---
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.1 Active confirmed 31321920 Problem Chronic heart failure with preserved ejection fraction I50.32 Active confirmed 067874066 Problem Macular degeneration (senile) of retina, unspecified H35.30 Active confirmed 735709122 Problem Pacemaker Z95.0 Active confirmed 515175215 Problem 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 Active conf irmed 27616892 Problem 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 Active confirmed 355116629 Problem 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 Active confirmed 858761499 Problem Glaucoma, unspecified glaucoma type, unspecified lateralit y H40.9 Active confirmed 91258712 Problem Chronic deep vein thrombosis (DVT) of both lower extremities, unspecified vein I82.503 Active confirmed [id number] 06 Problem Gout, unspecified cause, unspecified chronicity, unspecified site M10.9 Active confirmed 94737516 Problem Osteoarthritis, unspecified osteoarthritis type, unspecified site M19.90 Active confirmed 941297067 ALLERGIES Allergen (clinical drug ingredient) Drug/Non Drug Allergy do cumented on EMR Reaction Allergy Type Onset Date Status dexamethasone Dexamethasone(NDC Code:[address]-47) Rash Drug A llergy Active Statins muscle pain Non Drug Allergy Active Penicillin (For Allergies Use Only) Hives Drug Allerg y 03/31/2021 Active ENCOUNTERS from 1935 to 2021-05-23 Encounter Location Date Provider Diagnosis [facility] Amy [address] [facility] [phone] [place] [address] 16 May, 2021 Ez Arnold IMMUNIZATIONS No Information SOCIAL HISTORY Tobacco Use: Social History Observation Description Date Details (start date - stop date) Former Smoker Sex Assigned At : Social History Observation Description Sex Assigned At Unknown Education: Question Answer Notes Level of Education: Finished College Audit Question Answer Notes Total Score: 0 Interpretation: Alcohol Education Language: Question Answer Notes Languages spoken: Gambian Episcopalian: Question Answer Notes Ep[employer]opalian 08 [employer] [facility] and Alcohol Question Answer Notes Total [...] Notes Start Da te End Date Status Senna 8.6 MG 2 tablets at bedtime as needed Orally Once a day for 3 0 day(s) Active Ferrous Sulfate 325 (65 Fe) MG 1 tablet Orally Once a day for 30 day( s) Active Acetaminophen Extra Strength 2 tablets as needed for pain bid fo r 30 days Apr, Active Xarelto 15 MG Oral Active Vitamin D (Cholecalciferol) 10 MCG (400 UNIT) 1 tablet Orally Once a day for 30 day(s) Active Advair Diskus 500-50 MCG/DOSE 1 puff Inhalation Twice a day Active Flonase Allergy Relief 50 MCG/ACT 1 spray in each nost ril Nasally Once a day for 30 day(s) Active Calcitriol 0.25 MCG Oral for 30 Act valentin Sucralfate 1 GM 1 tablet on an empty stomach 1 hour before meals orally three times daily for 90 day(s) Active Albuterol Sulfate HFA 108 (90 Base) MCG/ACT Inhalation for 25 Active Torsemide 10 MG 1 tablet Orally Once a day for 30 Days Active Pantoprazole Sodium 40 MG Oral for 30 Active Nitroglycerin 0.4 MG as directed Sublingual Active Milk of Magnesia 400 MG/5ML 5 ml at least 4 hours betw een doses as needed Orally Four times a day Active Azopt 1 % Ophthalmic for 50 Active Mucinex 600 MG 1 tablet as needed Orally every 12 hrs Active PreserVision AREDS - 1 cap Orally Daily Active Sodium Bicarbonate 325 MG as directed Orally Active Diclofenac Sodium 1 % External for 25 Active Albuterol Sulfate (2.5 MG/3ML) 0.083% 3 ml as needed Inhalation brandon ry 6 hrs Active Allopurinol 100 MG 1 tablet Orally Once a day Active PROCEDURES No Information RESULTS No Results REASON FOR VISIT script MEDICAL (GENERAL) HISTORY Type Description Date Medical [...] hrs Nitroglycerin 0.4 MG as directed Sublingual Xarelto 15 MG Oral Mucinex 600 MG 1 tablet as needed Orally every 12 hrs Flonase Allergy Relief 50 MCG/ACT 1 spray in each nost ril Nasally Once a day for 30 day(s) Torsemide 10 MG 1 tablet Orally Once a day for 30 Days Next Appt Details Provider Name:Ez Iglesiasarz, 2020-10-2 9 01:30:00 PM, [address] [facility], , [place], [address], Insurance Providers Payer Name Payer Address Payer Phone Insured Name Patient Relati onship to Insured Coverage Start Date Coverage End Date MEDICARE Part A and B [address] [facility] [id number] SILVIA BA[facility] CLAIM [facility] [address] [facility] [phone] SILVIA BAER self
--- OUTSIDE RECORDS SUMMARY | 2021-06-22 10:36 | CCD ---
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 Active confirmed 68288999 Problem Chronic heart failure with preserved ejection fraction I50.32 Active confirmed 583283656 Problem Macular degeneration (senile) of retina, unspecified H35.30 Active confirmed 150875529 Problem Pacemaker Z95.0 Active confirmed 098294717 Problem 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 Active conf irmed 78100102 Problem 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 Active confirmed 324788058 Problem 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 Active confirmed 039581669 Problem Glaucoma, unspecified glaucoma type, unspecified lateralit y H40.9 Active confirmed 70934036 Problem Chronic deep vein thrombosis (DVT) of both lower extremities, unspecified vein I82.503 Active confirmed [id number] 06 Problem Gout, unspecified cause, unspecified chronicity, unspecified site M10.9 Active confirmed 66067990 Problem Osteoarthritis, unspecified osteoarthritis type, unspecified site M19.90 Active confirmed 549586232 ALLERGIES Allergen (clinical drug ingredient) Drug/Non Drug Allergy do cumented on EMR Reaction Allergy Type Onset Date Status dexamethasone Dexamethasone(NDC Code:[address]-70) Rash Drug A llergy Active Statins muscle pain Non Drug Allergy Active Penicillin (For Allergies Use Only) Hives Drug Allerg y 03/31/2021 Active ENCOUNTERS from 1935 to 2021-05-26 Encounter Location Date Provider Diagnosis [facility] Amy [address] [facility] [phone] [place] [address] May, Ez Arnold IMMUNIZATIONS No Information SOCIAL HISTORY Tobacco Use: Social History Observation Description Date Details (start date - stop date) Former Smoker Sex Assigned At : Social History Observation Description Sex Assigned At Unknown Education: Question Answer Notes Level of Education: Finished College Audit Question Answer Notes Total Score: 0 Interpretation: Alcohol Education Language: Question Answer Notes Languages spoken: Tuvaluan Temple: Question Answer Notes Temple 08 [facility] [facility] and Alcohol Question Answer Notes Total [...] 1 tablet Orally Once a day Active Acetaminophen Extra Strength 2 [...] AREDS - 1 cap Orally Daily Active Azopt 1 % Ophthalmic for 50 Active Mucinex 600 MG 1 tablet as needed Orally every 12 hrs Active Torsemide 10 MG 1 tablet Orally Once a day for 30 Days Active Sodium Bicarbonate 325 MG as directed Orally Active Diclofenac Sodium 1 % External for 25 Active Albuterol Sulfate (2.5 MG/3ML) 0.083% 3 ml as needed Inhalation brandon ry 6 hrs Active Milk of Magnesia 400 MG/5ML 5 ml at least 4 hours betw een doses as needed Orally Four times a day Active PROCEDURES No Information RESULTS No Results REASON FOR VISIT refill-senna MEDICAL (GENERAL) HISTORY Type Description Date Medical [...] Nasally Once a day for 30 day(s) Xarelto 15 MG Oral Mucinex 600 MG 1 tablet as needed Orally every 12 hrs Torsemide 10 MG 1 tablet Orally Once a day for 30 Days Senna 8.6 MG 2 tablets at bedtime as needed Orally Once a day for 30 day(s) Next Appt Details Provider Name:Ez Arnold, 1-10-2 9 01:30:00 PM, [address] [facility], , [place], [address], Insurance Providers Payer Name Payer Address Payer Phone Insured Name Patient Relati onship to Insured Coverage Start Date Coverage End Date MEDICARE Part A and B [address] [facility] [phone] SILVIA BAER [facility] CLAIM [facility] [address] [facility] [phone] SILVIA BAER self
--- OUTSIDE RECORDS SUMMARY | 2021-06-22 10:37 | CCD | Continuity of Care Document ---
Author Author Gabby YANEZ MD Organization Unknown Address [address] [place] [address] Phone [phone] Care Team Providers Care Project Design Engineer Name Role Phone Ez Arnold D.O. AUTM [phone] Problems Active Problems Provider Date Chronic obstructive lung disease Todd Yanez MD Onset: 10/14/2015 Ex-smoker Todd Yanez MD Onset: 05/15/2013 Cough Todd Yanez MD Onset: 05/06/2011 Obesity Todd Yanez MD Onset: 05/06/2011 Emphysematous bronchitis Tdod Yanez MD Onset: 08/18/20 10 Allergic rhinitis Todd Yanez MD Onset: 08/18/2010 Abnormal sputum Todd Yanez MD Onset: 08/18/2010 Social History Type Date Description Comments Sex Unknown ETOH Use 1-2 ozs of tara daily Tobacco Use Start: Unknown quit in Oct 2001 Smoking Status Reviewed: 05/20/21 quit in Oct 2001 Allergies, Adverse Reactions, Alerts Active Allergies Criticality Reaction | Severity Comments Date Penicillin Unable to assess criticality 07/30/2014 Cipro Unable to assess criticality 07/30/2014 Dorzolamide Unable to assess criticality 07/30/2014 Timolol Unable to assess criticality 07/30/2014 Livalo Unable to assess criticality 07/30/2014 Avelox Unable to assess criticality HIVES 08/14/2014 Coreg Unable to assess criticality 07/19/2017 Statins Unable to assess criticality Anaphylaxis 10/14/2015 Dorzolamide HCL Unable to assess criticality ^HR 04/09/2009 Neomycin / Polymyxin B / Prednisolone Unable to assess criticality 03/29/2018 Medications Active Medications SIG Qnty Indications Ordering Provide r Date Advair Diskus 500-50mcg/Dose Aeros ol 1 puff twice a day 60units Todd Yanez MD 11/17/2018 Ventolin HFA 108(90Base) mcg/Act A erosol 2 puffs qid/prn 18units Todd Yanez MD 10/14/2015 Torsemide 20mg Tablets 1 by mouth twice a day Unknown Levemir 100Unit/ML Solution 10 units once daily Unknown Potassium Chloride ER 10Meq Capsul es ER 1 by mouth twice a day Unknown Mapap Arthritis Pain 650mg Tablets ER 1 tab by mouth every 8 hours as needed Unknown Xarelto 15mg Tablets 1 by mouth every day Unknown Nitrostat 0.4mg Tablets Sub 1 sl prn 20tabs Unknown Albuterol Sulfate (2 .5mg/3ML) 0.083% Nebulizer 1 vial via neb q4hrs prn 120units Unknown Prilosec 20mg Capsules DR 1 by mouth every day 90caps Unknown [place] 3 1200mg Capsules by mouth twice a day Unknown Preservision Areds Capsules 1 by mouth twice a day Unknown Lantus 100Unit/ML Solution 8 units at bedtime Unknown Lumigan 0.01% Solution 1 Drop Both Eyes @ hs Unknown Azopt 1% Suspension 1 Drop Both Eyes bid Unknown Allopurinol 100mg Tablets 1 by mouth every day Unknown Aspirin 325mg Tablets 1 by mouth every day Unknown Oscal Ultra Tablets 1 by mouth every day Unknown Calcitriol 0.25mcg Capsules by mouth every day 90caps Unknown Vitamin D3 Super Strength 2000Unit Tablets 1 tab by mouth every day Unknown Immunizations CPT Code Status Date Vaccine Lot # [id number] Given 05/28/2015 Prevnar 13 Q2036 Given 05/27/2015 Influenza Vaccine 3 Years Of Age Or Older (Flulaval) 19371 Given 07/12/2014 Influenza Virus Split 3 Yrs And Above For Intramuscular Use Q2036 Given 07/07/2013 Influenza Vaccine 3 Years Of Age Or Older (Flulaval) Q2036 Given 05/10/2012 Influenza Vaccine 3 Years Of Age Or Older (Flulaval) Q2036 Given 06/24/2011 Influenza Vaccine 3 Years Of Age Or Older (Flulaval) 85064 Given 05/23/2010 Pneumococcal PPSV23 81155 Given 05/23/2010 Influenza Virus Split 3 Yrs And Above For Intramuscular Use 33425 Given 05/15/2009 Influenza Vaccine 74429 Given 06/05/2008 Influenza Vaccine Q2036 Given Unknown Influenza Vaccine 3 Years Of Age Or Older (Flulaval) 15032 Given Unknown Pneumococcal PPSV23 Vital Signs Date Vital Result Comment 05/20/2021 3:09pm BP Systolic 128 mmHg BP Diastolic 70 mmHg Heart Rate 88 /min O2 % BldC Oximetry 99 % Room Air 01/15/2021 11:39am BP Systolic 130 mmHg BP Diastolic 70 mmHg Heart Rate 73 /min O2 % BldC Oximetry 99 % Room Air Height 66 inches 5'6" Weight 141.00 lb BMI (Body Mass Index) 22.8 kg/m2 Hardy Body Weight 130 lb Weight 63.958 kg BSA (Body Surface Area) 1.72 m2 Results Description No Information Available Procedures Date Code Description Status 01/15/2021 40680 Office/Outpatient Established Mo d MDM 30-39 Min Completed 08/12/2015 [id number] Mammogram Completed Medical Devices Description No Information Available Encounters Type Date Location Provider Dx Diagnosis Office Visit 01/15/2021 11:30a [facility]ren[facility] harmony Yanez MD R91.8 Other nonspecific abnormal finding of rakan ng field J47.9 Bronchiectasis, uncomplicate d Z79.02 long-term (current) use of a 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/antiplatelets Z66 Do not resuscitate Assessments Date Code Description Provider 05/20/2021 R91.8 Other nonspecific abnormal findi ng of lung field Todd Yanez MD 05/20/2021 J47.9 Bronchiectasis, uncomplicated La wrroland Yanez MD 05/20/2021 J44.9 Chronic obstructive pulmonary di sease, unspecified Todd Yanez MD 05/20/2021 Z79.02 long-term (current) use of antit hrombotics/antiplatelets Todd Yanez MD 05/20/2021 Z66 Do not resuscitate Todd reinoso MD 01/15/2021 R91.8 Other nonspecific abnormal findi ng of lung field Todd Yanez MD 01/15/2021 J47.9 Bronchiectasis, uncomplicated La severino Yanez MD 01/15/2021 Z79.02 long-term (current) use of antit hrombotics/antiplatelets Todd Yanez MD 01/15/2021 Z66 Do not resuscitate Todd reinoso MD Plan of Treatment Future Appointment(s):* 09/18/2021 1:00 pm - Todd Yanez MD at [facility] 05/20/2021 - Todd Yanez MD* R91.8 Other nonspecific abnormal finding of lung field * J47.9 Bronchiectasis, uncomplicated * J44.9 Chronic obstructive pulmonary disease, unspecified * 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
--- OUTSIDE RECORDS SUMMARY | 2021-06-22 10:37 | CCD ---
Author Author [facility] Organization [facility] Address Unknown Phone Unavailable Care Team Providers Care Landscaping And Groundskeeping Laborer Name Role Phone Ez Arnold Unavailable PROBLEMS Type Condition ICD9-CM Code XKH02-PR Code Onset Dates Condition S tatus W/U Status Risk SNOMED Code Notes Problem Chronic obstructive pulmonary disease, unspecified COPD ty pe J44.9 Active confirmed 87428845 Problem Multifocal pneumonia J18.9 Active confirmed 511849272 Problem Postnasal drip R09.82 Active confirmed 53209 007 Problem Mobitz type 2 second degree heart block I44.1 Active confirmed 34885291 Problem Chronic heart failure with preserved ejection fraction I50.32 Active confirmed 705997381 Problem Macular degeneration (senile) of retina, unspecified H35.30 Active confirmed 675851806 Problem Pacemaker Z95.0 Active confirmed 125643519 Problem 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 Active conf irmed 57695952 Problem 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 Active confirmed 998996004 Problem 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 Active confirmed 848375894 Problem Glaucoma, unspecified glaucoma type, unspecified lateralit y H40.9 Active confirmed 66206780 Problem Chronic deep vein thrombosis (DVT) of both lower extremities, unspecified vein I82.503 Active confirmed [id number] 06 Problem Gout, unspecified cause, unspecified chronicity, unspecified site M10.9 Active confirmed 77389054 Problem Osteoarthritis, unspecified osteoarthritis type, unspecified site M19.90 Active confirmed 451100432 ALLERGIES Allergen (clinical drug ingredient) Drug/Non Drug Allergy do cumented on EMR Reaction Allergy Type Onset Date Status dexamethasone Dexamethasone(NDC Code:[address]-46) Rash Drug A llergy Active Statins muscle pain Non Drug Allergy Active Penicillin (For Allergies Use Only) Hives Drug Allerg y 03/31/2021 Active ENCOUNTERS from 1935 to 2021-05-21 Encounter Location Date Provider Diagnosis [facility] Resident [address] [phone] [place] [address] Apr, Ez Catalina Encounter to 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 ; Chronic deep vein thrombosis (DVT) of both lower extremities, unspecified vein I82.503 ; Chronic heart failure with preserved ejection fraction I50.32 ; Chronic anemia D64.9 ; Mobitz type 2 second degree heart block I44.1 ; Pacemaker Z95.0 ; Hx SBO Z87.19 ; Glaucoma, unspecified glaucoma type, unspecified laterality H40.9 ; Macular degeneration (senile) of retina, unspecified H35.30 ; Preventative health care Z00.00 ; Osteoarthritis, unspecified osteoarthritis type, unspecified site M19.90 ; Former smoker Z87.891 and Stage 3a chronic kidney disease N18.31 IMMUNIZATIONS No Information SOCIAL HISTORY Tobacco Use: Social History Observation Description Date Details (start date - stop date) Former Smoker Sex Assigned At : Social History Observation Description Sex Assigned At Unknown Education: Question Answer Notes Level of Education: Finished College Audit Question Answer Notes Total Score: 0 Interpretation: Alcohol Education Language: Question Answer Notes Languages spoken: Fijian Faith: Question Answer Notes Faith 08 [facility] Question Answer [...] REASON FOR REFERRAL No Information VITAL SIGNS Weight 137.08 lbs Apr, Weight-kg 62.18 kg Apr, Height 67 in Apr, BMI 21.47 kg/m2 Apr, Heart Rate 96 /min Apr, Respiratory Rate 20 /min Apr, Temperature 96 degrees Fahrenheit Apr, Oximetry 97 Apr, Blood pressure systolic 130 mm Hg Apr, Blood pressure diastolic 78 mm Hg Apr, MEDICATIONS Medication SIG (Take, Route, Frequency, Duration) [...] bid fo r 30 days Apr, Active Sucralfate 1 GM 1 tablet on an empty stomach 1 hour before meals orally twice daily for 30 days Active Vitamin D (Cholecalciferol) 10 MCG (400 UNIT) 1 tablet Orally Once a day for 30 day(s) Active Nitroglycerin 0.4 MG as directed Sublingual Active Flonase Allergy Relief 50 MCG/ACT 1 spray in each nost ril Nasally Once a day for 30 day(s) Active Calcitriol 0.25 MCG Oral for 30 Act valentin Advair Diskus 500-50 MCG/DOSE 1 puff Inhalation Twice a day Active Albuterol Sulfate HFA 108 (90 Base) MCG/ACT Inhalation for 25 Active Torsemide 10 MG 1 tablet Orally Once a day for 30 Days Active Pantoprazole Sodium 40 MG Oral for 30 Active Albuterol Sulfate (2.5 MG/3ML) 0.083% 3 ml as needed Inhalation rbandon ry 6 hrs Active Milk of Magnesia 400 MG/5ML 5 ml at least 4 hours betw een doses as needed Orally Four times a day Active Azopt 1 % Ophthalmic for 50 Active Xarelto 15 MG Oral Active PreserVision AREDS - 1 cap Orally Daily Active Sodium Bicarbonate 325 MG as directed Orally Active Diclofenac Sodium 1 % External for 25 Active Mucinex 600 MG 1 tablet as needed Orally every 12 hrs Active Allopurinol 100 MG 1 tablet Orally Once a day Active PROCEDURES No Information RESULTS No Results 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 As of now, patient's listed PCP is Dr. Alcazar and we have instructed scheduling to have patient return within the next month to continue with establish care and addressing patient's multiple needs. Per records that the patient brought today from [facility], it appears her previous PCP was Dr. Wang. She also follows with Dr. Yanez of pulmonology as outpatient as well as Dr. Donaldson of infectious disease. Apr, Nausea (ICD-10 - R11.0) Patient's most recent EKG while hospitalized last month had a QTC of 512, therefore with her not having significant nausea recently, we have stopped her Zofran medication. Apr, Gout, unspecified cause, uns pecified chronicity, unspecified site (ICD-10 - M10.9) Patient has not had any gout flares "in many years." As a result, collaborative decision made today to stop patient's allopurinol as this can worsen her CKD. Apr, Multifocal pneumonia (ICD-10 - J18.9) Multiple hospitalizations over the last 2 months. Following with infectious disease. Please see HPI for further details. Next appointment with infectious diseases next week. Also does follow with pulmonology as outpatient (Dr. Yanez) with next appointment next month. She is status post 7 days of IV meropenem in the hospital with extensive testing done all detailed in HPI. Apr, Coronary artery disease of n ative artery of [place] heart with stable angina pectoris (ICD-10 - I25.118) We will have to assess what patient's cardiology coverage is.patient follows with Dr. Guerra of cardiology as outpatient. She is on Xarelto but with her previous stent there is consideration for daily aspirin. Request for previous outpatient PCP and specialist records has been made. Apr, Chronic obstructive pulmonar y disease, unspecified COPD type (ICD- 10 - J44.9) Is on twice a day Advair discus with as needed albuterol nebulizer and Mucinex. Follows with Dr. Yanez of pulmonology as outpatient. Her next appointment with pulmonology will be next month. Apr, Pseudomonas aeruginosa infection (ICD-10 - A49.8 ) Following with infectious disease. Please see HPI for further details. Next appointment with infectious diseases next week. Also does follow with pulmonology as outpatient (Dr. Yanez) with next appointment next month. She is status post 7 days of IV meropenem in the hospital with extensive testing done all detailed in HPI. Apr, Mycobacterium avium complex (ICD-10 - A31.0) Following with infectious disease. Please see HPI for further details. Next appointment with infectious diseases next week. Also does follow with pulmonology as outpatient (Dr. Yanez) with next appointment next month. She is status post 7 days of IV meropenem in the hospital with extensive testing done all detailed in HPI. Apr, Chronic deep vein thrombosis (DVT) of both lower extremities, unspecified vein (ICD-10 - I82.503) Has an IVC filter in place and also takes Xarelto daily. Apr, Chronic heart failure with p reserved ejection fraction (ICD-10 - I50.32) Please see recent echo results from 2 months ago during hospitalization. We will continue with her torsemide. Appeared to be euvolemic and compensated on exam today. Apr, Chronic anemia (ICD-10 - D64.9) Anemia was normocytic and normochromic during most recent admission. She is on 325 oral iron as outpatient and did receive IV Venofer while in the hospital. Her hemoglobin remained stable between 8 and 9 while she was in the hospital. She is on Xarelto for her bilateral DVTs. Apr, Mobitz type 2 second degree heart block (ICD-10 - I44.1) Has pacemaker as result Apr, Pacemaker (ICD-10 - Z95.0) Secondary to history of type II Mobitz heart block Apr, Hx SBO (ICD-10 - Z87.19) Apr, Glaucoma, unspecified glauco ma type, unspecified laterality (ICD-10 - H40.9) Continue with her eyedrop meds as listed in HPI Apr, Macular degeneration (senile ) of retina, unspecified (ICD-10 - H35.30) Apr, Preventative health care (ICD-10 - Z00.00) On cursory review, patient's last bone density survey appears to be in May 2002. Patient will likely warrant DEXA scan on follow-up. Apr, Osteoarthritis, unspecified osteoarthritis type, unspecified site (ICD-10 - M19.90) Patient reports previously being on Tylenol every 4 hours but somehow in her recent admissions and then returns to [facility], this prescription got changed every 8 hours. She is in a moderate amount of pain today and we have sent in a prescription for the Tylenol to return to her every 4 hour dosing. Apr, Former smoker (ICD-10 - Z87.891) Quit smoking in October 2001 after smoking 1 pack a day for multiple years; will define duration upon follow-up. Apr, Stage 3a chronic kidney disease (ICD-10 - N18.31 ) Follows with nephrology as outpatient (Dr. Kwok). Baseline creatinine appears to be around 1. As discussed in ED gout assessment section, collaborative decision made today to stop allopurinol. PLAN OF TREATMENT Medication Medication Name Sig Start Date Stop Date Nitroglycerin 0.4 MG as directed Sublingual Advair Diskus 500-50 MCG/DOSE 1 puff Inhalation Twice a day Mucinex 600 MG 1 tablet as needed Orally every 12 hrs Albuterol Sulfate (2.5 MG/3ML) 0.083% 3 ml as needed Inhalation every 6 hrs Sucralfate 1 GM 1 tablet on an empty stomach 1 hour before meals orally twice daily for 30 days Xarelto 15 MG Oral Flonase Allergy Relief 50 MCG/ACT 1 spray in each nost ril Nasally Once a day for 30 day(s) Torsemide 10 MG 1 tablet Orally Once a day for 30 Days Treatment Notes Assessment Notes Clinical Notes Glaucoma, unspecified glaucoma type, unspecified laterality Continue with her eyedrop meds as listed in HPI Encounter to establish care Overall, thi s patient has a very extensive medical history with multiple comorbidities in the majority of this appointment was simply cataloging the recent developments of her multiple hospitalizations as well as discussing her chronic issues and medications. As of now, patient's listed PCP is Dr. Alcazar and we have instructed scheduling to have patient return within the next month to continue with establish care and addressing patient's multiple needs.Per records that the patient brought today from [facility], it appears her previous PCP was Dr. Wang.She also follows with Dr. Yanez of pulmonology as outpatient as well as Dr. Donaldson of infectious disease. Pacemaker Secondary to history of type II Mobitz heart block Nausea Patient's most recen t EKG while hospitalized last month had a QTC of 512, therefore with her not having significant nausea recently, we have stopped her Zofran medication. Osteoarthritis, unspecified osteoarthritis type, unspecified site Patient reports previously being on Tylenol every 4 hours but somehow in her recent admissions and then returns to [facility], this prescription got changed every 8 hours. She is in a moderate amount of pain today and we have sent in a prescription for the Tylenol to return to her every 4 hour dosing. Gout, unspecified cause, unspecified chronicity, unspecified site Patient has not had any gout flares "in many years." As a result, collaborative decision made today to stop patient's allopurinol as this can worsen her CKD. Preventative health care On cursory revi ew, patient's last bone density survey appears to be in May 2002. Patient will likely warrant DEXA scan on follow-up. Multifocal pneumonia Multiple hospitaliz ations over the last 2 months. Following with infectious disease. Please see HPI for further details. Next appointment with infectious diseases next week. Also does follow with pul monology as outpatient (Dr. Yanez) with next appointment next month. She is status post 7 days of IV meropenem in the hospital with extensive testing done all detailed in HPI. Stage 3a chronic kidney disease Follows with nephrology as outpatient (Dr. Kwok). Baseline creatinine appears to be around 1. As discussed in ED gout assessment section, collaborative decision made today to stop allopurinol. Coronary artery disease of [place] artery of [place] heart with stable angina pectoris We will have to assess what patient's cardiology coverage is.patient follows with Dr. Guerra of cardiology as outpatient. She is on Xarelto but with her previous stent there is consideration for daily aspirin. Request for previous outpatient PCP and specialist records has been made. Former smoker Quit smoking in 2001 after smoking 1 pack a day for multiple years; will define duration upon follow-up. Chronic obstructive pulmonary disease, unspecified COPD type Is on twice a day Advair discus with as needed albuterol nebulizer and Mucinex. Follows with Dr. Yanez of pulmonology as outpatient. Her next appointment with pulmonology will be next month. Pseudomonas aeruginosa infection Followi ng with infectious disease. Please see HPI for further details. Next appointment with infectious diseases next week. Also does follow with pulmonology as outpatient (Dr. Yanez) with next a ppointment next month. She is status post 7 days of IV meropenem in the hospital with extensive testing done all detailed in HPI. Mobitz type 2 second degree heart block Has pacemaker as result Chronic anemia Anemia was normocyti c and normochromic during most recent admission. She is on 325 oral iron as outpatient and did receive IV Venofer while in the hospital. Her hemoglobin remained stable between 8 and 9 while she was in the hospital. She is on Xarelto for her bilateral DVTs. Mycobacterium avium complex Following infectious disease. Please see HPI for further details. Next appointment with infectious diseases next week. Also does follow with pulmonology as outpatient (Dr. Yanez) with next appointment next month. She is status post 7 days of IV meropenem in the hospital with extensive testing done all detailed in HPI. Chronic deep vein thrombosis (DVT) of both lower extre mities, unspecified vein Has an IVC filter in place and also take s Xarelto daily. Chronic heart failure with preserved ejection fraction Please see recent echo results from 2 months ago during hospitalization. We will continue with her torsemide. Appeared to be euvolemic and compensated on exam today. Next Appt Details 1 MO Reason:contd est care items and f/u of chronic issues Provider Name:Ez Arnold, 2020-10-2 9 01:30:00 PM, [address] , , [place], [address], Follow Up:1 MOcontd est care items and f/u of chronic issues Insurance Providers Payer Name Payer Address Payer Phone Insured Name Patient Relati onship to Insured Coverage Start Date Coverage End Date [employer]IONS [facility] CLAIM [facility] [address] [facility] [phone] SILVIA BAER MEDICARE Part A and B [address] [facility] [id number] SILVIA BAER self
--- OUTSIDE RECORDS SUMMARY | 2021-06-22 10:37 | CCD | Continuity of Care Document ---
Author Author Gabby YANEZ MD Organization Unknown Address [address] [place] [address] Phone [phone] Care Team Providers Care Tutoring Manager Name Role Phone Ez Arnold D.O. AUTM [phone] Problems Active Problems Provider Date Chronic obstructive lung disease Todd Yanez MD Onset: 10/14/2015 Ex-smoker Todd Yanez MD Onset: 05/15/2013 Cough Todd Yanez MD Onset: 05/06/2011 Obesity Todd Yanez MD Onset: 05/06/2011 Emphysematous bronchitis Todd Yanez MD Onset: 08/18/20 10 Allergic rhinitis [...] 1 by mouth every day 90caps Unknown Adrian 3 1200mg Capsules by mouth twice a [...] CPT Code Status Date Vaccine Lot # 31214 Given 05/28/2015 Prevnar 13 Q2036 Given 05/27/2015 Influenza Vaccine 3 Years Of Age Or Older (Flulaval) 07287 Given 07/12/2014 Influenza Virus Split 3 Yrs And Above For Intramuscular Use Q2036 Given 07/07/2013 Influenza Vaccine 3 Years Of Age Or Older (Flulaval) Q2036 Given 05/10/2012 Influenza Vaccine 3 Years Of Age Or Older (Flulaval) Q2036 Given 06/24/2011 Influenza Vaccine 3 Years Of Age Or Older (Flulaval) 40075 Given 05/23/2010 Pneumococcal PPSV23 99569 Given 05/23/2010 Influenza Virus Split 3 Yrs And Above For Intramuscular Use 20463 Given 05/15/2009 Influenza Vaccine 82938 Given 06/05/2008 Influenza Vaccine Q2036 Given Unknown Influenza Vaccine 3 Years Of Age Or Older (Flulaval) 27293 Given Unknown Pneumococcal PPSV23 Vital Signs Date [...] lb BMI (Body Mass Index) 22.8 kg/m2 [place] Body Weight 130 lb Weight 63.958 kg BSA (Body Surface Area) 1.72 m2 Results Description No Information Available Procedures Date Code Description Status 01/15/2021 54612 Office/Outpatient Established Mo d MDM 30-39 Min Completed 08/12/2015 [id number] Mammogram Completed Medical Devices Description No Information Available Encounters Type Date Location Provider Dx Diagnosis Office Visit 01/15/2021 11:30a [facility] Lawrenc harmony Yanez MD R91.8 Other [...] 1:00 pm - Todd Yanez MD at [facility] 05/20/2021 - Todd Yanez MD* R91.8 Other nonspecific abnormal finding of lung field * J47.9 Bronchiectasis, uncomplicated * J44.9 Chronic obstructive pulmonary disease, unspecified * 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
--- OUTSIDE RECORDS SUMMARY | 2021-06-22 10:37 | CCD ---
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 Code:[address]-44) Rash Drug A llergy Active Statins muscle pain Non Drug Allergy Active Penicillin (For Allergies Use Only) Hives Drug Allerg y 03/31/2021 Active ENCOUNTERS from 1935 to 2021-05-17 Encounter Location Date Provider Diagnosis [address] [phone] [place] [address] May, Ez Arnold Postnasal drip R09.82 IMMUNIZATIONS No Information SOCIAL HISTORY Tobacco Use: Social History Observation Description Date Details (start date - stop date) Former Smoker Sex Assigned At : Social History Observation Description Sex Assigned At Unknown Education: Question Answer Notes Level of Education: Finished College Audit Question Answer Notes Total Score: 0 Interpretation: Alcohol Education Language: Question Answer Notes Languages spoken: German Zoroastrianism: Question Answer Notes Zoroastrianism 08 [facility] Drug and Alcohol Question Answer Notes Total [...] bid fo r 30 days Apr, Active Mucinex 600 MG 1 tablet as needed Orally every 12 hrs Active Vitamin D (Cholecalciferol) 10 MCG (400 UNIT) 1 tablet Orally Once a day for 30 day(s) Active Advair Diskus 500-50 MCG/DOSE 1 puff Inhalation Twice a day Active Flonase Allergy Relief 50 MCG/ACT 1 spray in each nost ril Nasally Once a day for 30 day(s) Active Albuterol Sulfate HFA 108 (90 Base) MCG/ACT Inhalation for 25 Active Calcitriol 0.25 MCG Oral for 30 Act valentin Sucralfate 1 GM Oral for 30 Active Pantoprazole Sodium 40 MG Oral for 30 Active Xarelto 15 MG Oral Active Nitroglycerin 0.4 MG as directed Sublingual Active Milk of Magnesia 400 MG/5ML 5 ml at least 4 hours betw een doses as needed Orally Four times a day Active Azopt 1 % Ophthalmic for 50 Active Albuterol Sulfate (2.5 MG/3ML) 0.083% 3 ml as needed Inhalation brandon ry 6 hrs Active PreserVision AREDS - 1 cap Orally Daily Active Sodium Bicarbonate 325 MG as directed Orally Active Diclofenac Sodium 1 % External for 25 Active Torsemide 10 MG 1 tablet Orally Once a day Active Allopurinol 100 MG 1 tablet Orally Once a day Active PROCEDURES No Information RESULTS No Results REASON FOR VISIT refill MEDICAL (GENERAL) HISTORY Type Description Date Medical [...] Notes Treatment Notes Treatm ent Clinical Notes May, Postnasal drip (ICD-10 - R09.82) PLAN OF TREATMENT Medication Medication Name Sig Start Date Stop Date Nitroglycerin 0.4 MG as directed Sublingual Advair Diskus 500-50 MCG/DOSE 1 puff Inhalation Twice a day Albuterol Sulfate (2.5 MG/3ML) 0.083% 3 ml as needed Inhalation every 6 hrs Torsemide 10 MG 1 tablet Orally Once a day Xarelto 15 MG Oral Mucinex 600 MG 1 tablet as needed Orally every 12 hrs Flonase Allergy Relief 50 MCG/ACT 1 spray in each nost ril Nasally Once a day for 30 day(s) Next Appt Details Provider Name:Ez Arnold, 2020-10-2 9 01:30:00 PM, [address], , [place], [address], Insurance Providers Payer Name Payer Address Payer Phone Insured Name Patient Relati onship to Insured Coverage Start Date Coverage End Date [employer] HE[employer] C[employer] OPTIONS [facility] CLAIM DIV [id number] [facility] [phone] SILVIA BAER MEDICARE Part A and B [address] [facility] [address] [phone] SILVIA BAER
--- OUTSIDE RECORDS SUMMARY | 2021-06-22 10:37 | CCD | Continuity of Care Document ---
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 AUTM [phone] Problems Active Problems Provider Date Chronic obstructive [...] 1 by mouth every day 90caps Unknown [place] 3 1200mg Capsules by mouth twice a [...] CPT Code Status Date Vaccine Lot # [id number] Given 05/28/2015 Prevnar 13 Q2036 Given 05/27/2015 Influenza Vaccine 3 Years Of Age Or Older (Flulaval) 84346 Given 07/12/2014 Influenza Virus Split 3 Yrs And Above For Intramuscular Use Q2036 Given 07/07/2013 Influenza Vaccine 3 Years Of Age Or Older (Flulaval) Q2036 Given 05/10/2012 Influenza Vaccine 3 Years Of Age Or Older (Flulaval) Q2036 Given 06/24/2011 Influenza Vaccine 3 Years Of Age Or Older (Flulaval) 35568 Given 05/23/2010 Pneumococcal PPSV23 88935 Given 05/23/2010 Influenza Virus Split 3 Yrs And Above For Intramuscular Use 52141 Given 05/15/2009 Influenza Vaccine 97605 Given 06/05/2008 Influenza Vaccine Q2036 Given Unknown Influenza Vaccine 3 Years Of Age Or Older (Flulaval) 42781 Given Unknown Pneumococcal PPSV23 Vital Signs Date [...] lb BMI (Body Mass Index) 22.8 kg/m2 [place] Body Weight 130 lb Weight 63.958 kg BSA (Body Surface Area) 1.72 m2 Results Description No Information Available Procedures Date Code Description Status 01/15/2021 50969 Office/Outpatient Established Mo d MDM 30-39 Min Completed 08/12/2015 [id number] Mammogram Completed Medical Devices Description No Information Available Encounters Type Date Location Provider Dx Diagnosis Office Visit 01/15/2021 11:30a [facility] Lawrenc harmony Yanez MD R91.8 Other nonspecific abnormal finding of rakan ng field J47.9 Bronchiectasis, uncomplicate d Z79.02 [facility] (current) use of a 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/antiplatelets Z66 Do not resuscitate Assessments Date Code Description Provider 05/20/2021 R91.8 Other nonspecific abnormal findi ng of lung field Todd Yanez MD 05/20/2021 J47.9 Bronchiectasis, uncomplicated La wrroland Yanez MD 05/20/2021 J44.9 Chronic obstructive pulmonary di sease, unspecified Todd Yanez MD 05/20/2021 Z79.02 [facility] (current) use of antit hrombotics/antiplatelets Todd Yanez MD 05/20/2021 Z66 Do not resuscitate Todd reinoso MD 01/15/2021 R91.8 Other nonspecific abnormal findi ng of lung field Todd Yanez MD 01/15/2021 J47.9 Bronchiectasis, uncomplicated La severino Yanez MD 01/15/2021 Z79.02 [facility] (current) use of antit hrombotics/antiplatelets Todd Yanez MD 01/15/2021 Z66 Do not resuscitate Todd reinoso MD Plan of Treatment Future Appointment(s):* 09/18/2021 1:00 pm - Todd Yanez MD at [facility] 05/20/2021 - Todd Yanez MD* R91.8 Other nonspecific abnormal finding of lung field * J47.9 Bronchiectasis, uncomplicated * J44.9 Chronic obstructive pulmonary disease, unspecified * 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
--- OUTSIDE RECORDS SUMMARY | 2021-06-22 10:37 | CCD ---
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 230034425 Problem Chronic obstructive pulmonary disease, unspecified COPD ty pe J44.9 Active confirmed 40639335 Problem Postnasal drip R09.82 Active confirmed 17785 007 Problem 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 Active conf irmed [id number] ALLERGIES Allergen (clinical drug ingredient) Drug/Non Drug Allergy do cumented on EMR Reaction Allergy Type Onset Date Status dexamethasone Dexamethasone([facility] Code:[address]-90) Rash Drug A llergy Active Statins muscle pain Non Drug Allergy Active Penicillin (For Allergies Use Only) Hives Drug Allerg y 03/31/2021 Active ENCOUNTERS from 1935 to 2021-05-06 Encounter Location Date Provider Diagnosis [facility] [address] [facility] Kendy youngadela [phone] [place] [address] Apr, Flakito Donaldson Multifocal pneumonia J18.9 ; 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 ; 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 ; Postnasal drip R09.82 ; Coronary artery disease of [place] artery of [place] heart with stable angina pectoris I25.118 and Chronic obstructive pulmonary disease, unspecified COPD type J44.9 IMMUNIZATIONS No Information SOCIAL HISTORY Tobacco Use: Social History Observation Description Date Details (start date - stop date) Former Smoker Sex Assigned At : Social History Observation Description Sex Assigned At Unknown Education: Question Answer Notes Level of Education: Finished College Audit Question Answer Notes Total Score: 0 Interpretation: Alcohol Education Language: Question Answer Notes Languages spoken: Niuean Restorationism: Question Answer Notes Restorationism 08 Adventism Drug and Alcohol Question Answer Notes Total [...] FOR REFERRAL No Information VITAL SIGNS Weight 136 lbs Apr, Weight-kg 61.69 kg Apr, Height 67 in Apr, BMI 21.30 kg/m2 Apr, Heart Rate 91 /min Apr, Respiratory Rate 20 /min Apr, Temperature 97.7 degrees Fahrenheit Apr, Oximetry 96% Apr, Blood pressure systolic 126 mm Hg Apr, Blood pressure diastolic 68 mm Hg Apr, MEDICATIONS Medication SIG (Take, Route, Frequency, Duration) Notes Start Da te End Date Status Ferrous Sulfate 325 (65 Fe) MG 1 tablet Orally Once a day for 30 day( s) Active Allopurinol 100 MG 1 tablet Orally Once a day Active Vitamin D (Cholecalciferol) 10 MCG (400 UNIT) 1 tablet Orally Once a day for 30 day(s) Active Mucinex 600 MG 1 tablet as needed Orally every 12 hrs Active Senna 8.6 MG 2 tablets at bedtime as needed Orally Once a day for 3 0 day(s) Active Advair Diskus 500-50 MCG/DOSE 1 puff Inhalation Twice a day Active Acetaminophen Extra Strength 2 tablets as needed for pain bid fo r 30 days Apr, Active Albuterol Sulfate HFA 108 (90 Base) MCG/ACT Inhalation for 25 Active Calcitriol 0.25 MCG Oral for 30 Act valentin Sucralfate 1 GM Oral for 30 Active Flonase Allergy Relief 50 MCG/ACT 1 spray in each nost ril Nasally Once a day for 30 day(s) Active Xarelto 15 MG Oral Active Nitroglycerin 0.4 MG as directed Sublingual Active PreserVision AREDS - 1 cap Orally Daily Active Azopt 1 % Ophthalmic for 50 Active Albuterol Sulfate (2.5 MG/3ML) 0.083% 3 ml as needed Inhalation brandno ry 6 hrs Active Pantoprazole Sodium 40 MG Oral for 30 Active Sodium Bicarbonate 325 MG as directed Orally Active Diclofenac Sodium 1 % External for 25 Active Torsemide 10 MG 1 tablet Orally Once a day Active Milk of Magnesia 400 MG/5ML 5 ml at least 4 hours betw een doses as needed Orally Four times a day Active PROCEDURES No Information RESULTS Component Value Reference Range AFB SMEAR & CULTURE Reviewed date:04/29/2021 14:56:07 Interpretation: Performing Lab:[facility], [facility] [id number] , ,[place] [address] REASON FOR VISIT f/u MAC MEDICAL (GENERAL) HISTORY Type Description Date Medical [...] Treatment Notes Treatm ent Clinical Notes Apr, Multifocal pneumonia (ICD-10 - J18.9) 03/14 AFB culture was positive for MAC and 03/17 AFB smear was negative and culture still pending, patient had only 2 specimen sent. Patient was given an order to have another specimen done for AFB culture. If she has 2 out of 3 positive sputum cultures the patient will be treated for nontuberculous mycobacteria with 12 to 18 months of 3 drug therapy. Fungal smear and culture are negative so far. Beta 3 glucan negative, Urine pneumococcal antigen legionnaire antigen were negative, QuantiFERON-TB gold negative. She was treated with 7 days of IV meropenem with improvement of her symptoms. 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 She has 1 out of 2 specimens on 03/14 that was positive. Patient will need 2 out of 3 positive sputum culture before I start her treatment with 3 drug regimen including Zithromax to 50 mg daily rifampin 600 mg daily and ethambutol 1200 mg daily at 15 mg/kg dosing. Patient will need to be treated for 12 to 18 months of 3 drug regimen so I need to make sure that she really does have nontuberculous mycobacteria. She has macular degeneration and ethambutol has risk of optic neuritis and color vision changes. She needs to be followed up closely by [place] for sight Send another specimen tomorrow and if positive patient will be called to start 3 drug regimen Probably would recommend getting a follow-up chest CT done at 3-month which would be around June 13 to see if there is worsening infiltrates. Apr, Pseudomonas aeruginosa infection (ICD-10 - A49.8 ) Treated with 7 days of IV meropenem, if she has recurrence due to bronchiectasis she may benefit from ERENDIRA nebs Apr, Postnasal drip (ICD-10 - R09.82) Patient thinks her cough currently is due to postnasal drip and therefore we will try Flonase Apr, Coronary artery disease of n ative artery of [place] heart with stable angina pectoris (ICD-10 - I25.118) Apr, Chronic obstructive pulmonar y disease, unspecified COPD type (ICD- 10 - J44.9) Case DW Dr Yanez who will see her in FU in May unless worse PLAN OF TREATMENT Medication Medication Name Sig [...] Nasally Once a day for 30 day(s) Treatment Notes Assessment Notes Clinical Notes Multifocal pneumonia 03/14 AFB culture was positive for MAC and 03/17 AFB smear was negative and culture still pending, patient had only 2 specimen sent. Patient was given an order to have another specimen done for AFB culture. If she has 2 out of 3 positive sputum cultures the patient will be treated for nontuberculous mycobacteria with 12 to 18 months of 3 drug therapy. Fungal smear and culture are negative so far. Beta 3 glucan negative, Urine pneumococcal antigen legionnaire antigen were negative, QuantiFERON-TB gold negative.She was treated with 7 days of IV meropenem with improvement of her symptoms. 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 She has 1 out of 2 specimens on 03/14 that was positive. Patient will need 2 out of 3 positive sputum culture before I start her treatment with 3 drug regimen including Zithromax to 50 mg daily rifampin 600 mg daily and ethambutol 1200 mg daily at 15 mg/kg dosing. Patient will need to be treated for 12 to 18 months of 3 drug regimen so I need to make sure that she really does have nontuberculous mycobacteria.She has macular degeneration and ethambutol has risk of optic neuritis and color vision changes. She needs to be followed up closely [place] [facility] another specimen tomorrow and if positive patient will be called to start 3 drug regimenProbably would recommend getting a follow-up chest CT done at 3-month which would be around June 13 to see if there is worsening infiltrates. Pseudomonas aeruginosa infection Treated with 7 days of IV meropenem, if she has recurrence due to bronchiectasis she may benefit from ERENDIRA nebs Postnasal drip Patient thinks her c ough currently is due to postnasal drip and therefore we will try Flonase Chronic obstructive pulmonary disease, unspecified COPD type Case DW Dr Yanez who will see her in FU in May unless worse Next Appt Details 4 Weeks Reason: Provider Name:Ez Catalina, 10-2 9 01:30:00 PM, [address] [facility] [address] , , [place], [address], Insurance Providers Payer Name Payer Address Payer Phone Insured Name Patient Relati onship to Insured Coverage Start Date Coverage End Date MEDICARE Part A and B [address] [facility] [address] SILVIA BAER [facility] CLAIM [facility] [address] [facility] [id number] SILVIA BAER self
--- OUTSIDE RECORDS SUMMARY | 2021-06-22 10:37 | CCD | Continuity of Care Document ---
Author Author Gabby YANEZ MD Organization Unknown Address [address] [place] [address] Phone [phone] Care Team Providers Care Utility Pipe Layer Name Role Phone Ez Arnold D.O. AUTM [phone] Problems Active Problems Provider Date Chronic obstructive [...] 1 by mouth every day 90caps Unknown [place] 3 1200mg Capsules by mouth twice a [...] CPT Code Status Date Vaccine Lot # [id number] Given 05/28/2015 Prevnar 13 Q2036 Given 05/27/2015 Influenza Vaccine 3 Years Of Age Or Older (Flulaval) 36400 Given 07/12/2014 Influenza Virus Split 3 Yrs And Above For Intramuscular Use Q2036 Given 07/07/2013 Influenza Vaccine 3 Years Of Age Or Older (Flulaval) Q2036 Given 05/10/2012 Influenza Vaccine 3 Years Of Age Or Older (Flulaval) Q2036 Given 06/24/2011 Influenza Vaccine 3 Years Of Age Or Older (Flulaval) 05267 Given 05/23/2010 Pneumococcal PPSV23 18207 Given 05/23/2010 Influenza Virus Split 3 Yrs And Above For Intramuscular Use 96922 Given 05/15/2009 Influenza Vaccine 77016 Given 06/05/2008 Influenza Vaccine Q2036 Given Unknown Influenza Vaccine 3 Years Of Age Or Older (Flulaval) 42530 Given Unknown Pneumococcal PPSV23 Vital Signs Date [...] lb BMI (Body Mass Index) 22.8 kg/m2 [place] Body Weight 130 lb Weight 63.958 kg BSA (Body Surface Area) 1.72 m2 Results Description No Information Available Procedures Date Code Description Status 05/20/2021 09057 Office/Outpatient Established Mo d MDM 30-39 Min Completed 01/15/2021 34345 Office/Outpatient Established Mo d MDM 30-39 Min Completed 08/12/2015 [id number] Mammogram Completed Medical Devices Description No Information Available Encounters Type Date Location Provider Dx Diagnosis Office Visit 05/20/2021 3:00p [facility] Ezequiel Yanez MD R91.8 Other nonspecific abnormal finding of rakan gonzalez J44.9 Chronic obstructive pulmonar y disease, unspecified 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 Z66 Do not resuscitate Office Visit 01/15/2021 11:30a [facility] Ezequiel Yanez MD R91.8 Other nonspecific abnormal finding of rakan gonzalez J47.9 Bronchiectasis, uncomplicate d 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/antiplatelets Z66 Do not resuscitate Assessments Date Code Description Provider 05/20/2021 R91.8 Other nonspecific abnormal findi ng of lung field Todd Yanez MD 05/20/2021 J44.9 Chronic obstructive pulmonary di sease, unspecified Todd Yanez MD 05/20/2021 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 Todd Yanez MD 05/20/2021 Z66 Do not resuscitate Todd reinoso MD 01/15/2021 R91.8 Other nonspecific abnormal findi ng of lung field Todd Yanez MD 01/15/2021 J47.9 Bronchiectasis, uncomplicated La wrroland Yanez MD 01/15/2021 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 Todd Yanez MD 01/15/2021 Z66 Do not resuscitate Todd reinoso MD Plan of Treatment Future Appointment(s):* 09/18/2021 1:00 pm - Todd [facility]z MD at [facility] 05/20/2021 - Todd Yanez MD* R91.8 Other nonspecific abnormal finding of lung field * J44.9 Chronic obstructive pulmonary disease, unspecified * 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 I still believe she continually microaspirates. Certainly, if we can help her shut down her postnasal drip, that would be beneficial as well, and she tells me she just got her nasal sprays refilled.~ As long as she is doing well, I will see her in a minimum of 3-to-4 months. She is to keep us apprised if she has any significant changes or any decline in her function. I discussed with her the need to keep track of her sputum production or lack thereof. I will see her in return as outlined above or sooner if problems arise with which we can be of assistance. * Follow up:* 4 months...no testing Functional Status Description No Information Available Mental Status Description No Information Available Referrals Description No Information Available
--- OUTSIDE RECORDS SUMMARY | 2021-06-22 10:37 | CCD | Continuity of Care Document ---
Author Author Gabby BAIRD-C Organization Unknown Address [address], [place] [address] Phone [phone] Care Team Providers Care Clinical Dietitian Name Role Phone Todd Yanez MD AUTM [phone] Gilda Wang DO AUTM [phone] Problems Active Problems Provider Date Coronary arteriosclerosis Shantel Baird PA-C Onset: 2010 Patient post percutaneous transluminal coronary angiop lasty LEA Stevenson-C Onset: 08/07/2011 Chronic diastolic heart failure Shantel Baird PA-C Onset: 08/07/2011 Benign hypertensive heart disease with congestive card iac failure Shantel Baird PA-C Onset: 08/07/2011 Electrocardiogram abnormal Shantel Baird PA-C Onset: 08/07 Right bundle branch block AND left anterior fascicular block Shantel Baird PA-C Onset: 06/07/2013 Mitral valve disorder Shantel Baird PA-C Onset: 08/07/2011 Pure hypercholesterolemia Shantel Baird PA-C Onset: 2010 Obesity Shantel Baird PA-C Onset: 08/07/2011 Complete atrioventricular block MAX Ayala-C Onset: 04/21/2017 Dietary management surveillance LEA Stevenson-C Onset: 07/27/2017 Cardiac pacemaker in situ LEA Stevenson-C Onset: 2016 Social History Type Date Description Comments Sex Unknown Tobacco Use Start: Unknown End: Unknown Former Cigarette Smo ker 1ppd for 48-50 years, quit 2001 ETOH Use Never used alcohol Tobacco Use Start: Unknown End: Unknown Patient is a former smoker up to 1 & 1/2 ppd from age 17 until quit 2001 Smoking Status Reviewed: 03/24/21 Patient is a former smoker up to 1 & 1/2 ppd from age 17 until quit 2001 Exercise Type/Frequency Does housework sporadica lly Exercise Limitations Shortness Of Breath Exercise Limitations Back Pain Allergies, Adverse Reactions, Alerts Active Allergies Reaction Severity Comments Date Javed Inhibitors 03/23/2021 Carvedilol 03/23/2021 Colesevelam 03/23/2021 Dexamethasone 03/23/2021 Ezetimibe 03/23/2021 Losartan 03/23/2021 Neomycin 03/23/2021 Penicillins 03/23/2021 Pitavastatin 03/23/2021 Polymyxin B 03/23/2021 Quinolones 03/23/2021 Statins 03/23/2021 Timolol 03/23/2021 Medications Active Medications SIG Qnty Indications Ordering Provide r Date Calcitriol 0.5mcg Capsules 1 by mouth every day Unknown 03/23/2021 Senna 8.6mg Capsules 1-2 by mouth every night at bedtime as needed Unknown 03/23 Torsemide 10mg Tablets 1 by mouth every day Unknown 03/23/2021 Prednisone 5mg Tablets 2 by mouth every day Unknown 03/23/2021 Zofran 4mg Tablets 1 tablet every 8 hours when necessary for nausea Unknown 2020 Docusate Sodium 100mg Capsules 1 by mouth twice a day as Needed Unknown 03/23/2021 Carafate 1gm Tablets 1 by mouth 3 times a day Unknown 03/23/2021 Pantoprazole Sodium 40mg Tablets D R 1 by mouth every day Unknown 09/16/2020 Acetaminophen 500mg Tablets 1-2 by mouth every 6 hours as needed Unknown 09/13/19 Albuterol Sulfate (2 .5mg/3ML) 0.083% Nebulizer every 4 hours as needed Unknown 04/2020 Advair Diskus 500-50mcg/Dose Aeros ol 1 puff twice a day Unknown 07/19/2018 Xarelto 15mg Tablets 1 tab by mouth every day with evening meal Unknown 07/19/2018 Tylenol 8 Hour Arthritis Pain 650mg Tablets ER 1 tablet 3 times a day when necessary arthritic pain Unknown 01/31/2018 Ferrous Gluconate 324(38Fe) mg Tab lets 1 by mouth once a day Unknown 01/31/2018 Nitrostat 0.4mg Tablets Sub 1 sl every 5min x3 as needed for chest pain 25tabs I25.10 Rainer floyd MD 06/06/2013 Vitamin D-3 2000Unit Tablets 1 po qd Gilda Wang, DO 12/11/2012 Proair HFA 108(90Base) mcg/ac Aero aaliyah 2 puffs bid Gilda Wang, DO 05/25/2012 Preservision Areds 2 Areds 2 Capsu les 2 po daily Gilda Wang, DO 08/07/2011 Allopurinol 100mg Tablets 1 P O Daily Gilda Wang, DO 12/13/2007 Azopt 1% Suspension 1 GTT OU bid Gilda Wang, DO 12/13/2007 Lumigan 0.03% Solution 1 GTT O.U. QHS Unknown 12/13/2007 Immunizations Description No Information Available Vital Signs Date Vital Result Comment 03/24/2021 9:55am Weight 143.00 lb Home Weight 143lb Height 66 inches 5'6" BMI (Body Mass Index) 23.1 kg/m2 Heart Rate 60 /min Regular Respiratory Rate 16 /min BP Systolic Right Arm 146 mmHg sitting, regular c ff BP Diastolic Right Arm 82 mmHg sitting, regular cff BP Systolic Left Arm 146 mmHg sitting BP Diastolic Left Arm 78 mmHg sitting 09/17/2020 10:20am Weight 140.00 lb Home Weight 140lb Home weight Height 66 inches 5'6" BMI (Body Mass Index) 22.6 kg/m2 Heart Rate 71 /min Respiratory Rate 18 /min BP Systolic Sitting 138 mmHg BP Diastolic Sitting 70 mmHg O2 % BldC Oximetry 98 % Results Test Acquired Date Facility Test Result H/L Range Note CBC without Differential 02/17/2021 [facility] - not inter faced (315)- - White Blood Count 12.8 High 5.0-10.0 Red Blood Count 2.82 Low 4.00-5.40 Platelets 257 172-450 Hemoglobin 8.6 Hematocrit 27.4 CMP 02/17/2021 [facility] - not interfaced (315)- - Albumin Serum/Plasma 2.5 Alt - SGPT 18 Calcium Ser/Plasma Mass/Vol 8.8 Carbon Dioxide Ser/Plasm 16 Chloride Serum/Plasma 117 Alkaline Phosphatase 73 Potassium 3.6 Protein Total 5.0 Sodium 144 Ast - Sgot 12 BUN - Urea Nitrogen 35 Glucose 95 83-110 Creatinine For GFR 1.36 Laboratory test finding 02/17/2021 [facility] - not interf aced (315)- - Magnesium Level 1.6 Low 1.8-2.4 Procedures Date Code Description Status 03/24/2021 40916 Office/Outpatient Established Mo d MDM 30-39 Min Completed 03/24/2021 16987 Pacer Interrogation Any Leads Co mpleted 03/24/2021 40783 ECG 12-Lead Completed 12/20/2020 77050 Remote Pacemaker/Cardio-Defibril lator Data Acquistion Completed 12/20/2020 30167 Remote Interrogation Device Eval Pacemaker System Up To 90 Days Completed Medical Devices Description No Information Available Encounters Type Date Location Provider Dx Diagnosis Office Visit 03/24/2021 10:15a Main Office Shantel Baird PA-C I25.1 0 Athscl heart disease of [place] coronary artery w/o ang pctrs Z95.5 Presence of coronary angiopl asty implant and graft I50.32 Chronic diastolic (congestiv e) heart failure I11.0 Hypertensive heart disease w ith heart failure R94.31 Abnormal electrocardiogram [ ECG] [EKG] I45.2 Bifascicular block I34.0 Nonrheumatic mitral (valve) insufficiency E78.00 Pure hypercholesterolemia, u nspecified I44.2 Atrioventricular block, comp lete Z95.0 Presence of cardiac pacemake r Assessments Date Code Description Provider 03/24/2021 I25.10 Atherosclerotic heart disease of [place] coronary artery with Shantel Baird PA-C 03/24/2021 Z95.5 Presence of coronary angioplasty implant and graft Shantel Baird PA-C 03/24/2021 I50.32 Chronic diastolic (congestive) h eart failure Shantel Baird PA-C 03/24/2021 I11.0 Hypertensive heart disease with heart failure Shantel Baird PA-C 03/24/2021 R94.31 Abnormal electrocardiogram [ECG] [EKG] Shantel Baird PA-C 03/24/2021 I45.2 Bifascicular block Shantel soto PA-C 03/24/2021 I34.0 Nonrheumatic mitral (valve) insu fficiency Shantel Baird, PA-C 03/24/2021 E78.00 Pure hypercholesterolemia, unspe cified Shantel Baird, PA-C 03/24/2021 I44.2 Atrioventricular block, complete Shantel Baird, PA-C 03/24/2021 Z95.0 Presence of cardiac pacemaker DONAVON BatesC 12/20/2020 Z95.0 Presence of cardiac pacemaker Pa cer/Icd Clinic Plan of Treatment Future Appointment(s):* 06/23/2021 7:00 am - Pacer/Icd Clinic at Main Office * 03/25/2022 11:15 am - Shantel Baird PA-C at Main Office * 09/24/2021 10:15 am - Shantel Baird PA-C at Main Office 03/24/2021 - Shantel Baird PA-C* I25.10 Atherosclerotic heart disease of [place] coronary artery with * Z95.5 Presence of coronary angioplasty implant and graft * I50.32 Chronic diastolic (congestive) heart failure* New Labs:* Basic Metabolic Profile, Scheduled: 03/31/21 * Magnesium Level, Scheduled: 03/31/21 * Recommendations:* Follow a 2 grams sodium diet and 50 ounces fluid restriction per 24 hour and do daily weights. Call the office for weight gain of 3 lbs or more. * I11.0 Hypertensive heart disease with heart failure * R94.31 Abnormal electrocardiogram [ECG] [EKG] * I45.2 Bifascicular block * I34.0 Nonrheumatic mitral (valve) insufficiency * E78.00 Pure hypercholesterolemia, unspecified * I44.2 Atrioventricular block, complete * Z95.0 Presence of cardiac pacemaker * All * Follow up:* 91 day home pacer check. 6 month follow up. 12 month office pacemaker check. Obtain DC lab work, DC summary and ECHO from recent hospitalizations. Functional Status Functional Condition Comment Date Status Independent with all ADL's Activ e Requires assistance with ambulating with rolling walker Active Mental Status Description No Information Available Referrals Description No Information Available
--- OUTSIDE RECORDS SUMMARY | 2021-06-22 10:37 | CCD | Continuity of Care Document ---
Author Author Gabby YANEZ MD Organization Unknown Address [address] [place] [address] Phone [phone] Care Team Providers Care Family Law Paralegal Name Role Phone Ez Arnold D.O. AUTM [phone] Problems Active Problems Provider Date Chronic obstructive [...] 1 by mouth every day 90caps Unknown [place] 3 1200mg Capsules by mouth twice a [...] CPT Code Status Date Vaccine Lot # [id number] Given 05/28/2015 Prevnar 13 Q2036 Given 05/27/2015 Influenza Vaccine 3 Years Of Age Or Older (Flulaval) 70236 Given 07/12/2014 Influenza Virus Split 3 Yrs And Above For Intramuscular Use Q2036 Given 07/07/2013 Influenza Vaccine 3 Years Of Age Or Older (Flulaval) Q2036 Given 05/10/2012 Influenza Vaccine 3 Years Of Age Or Older (Flulaval) Q2036 Given 06/24/2011 Influenza Vaccine 3 Years Of Age Or Older (Flulaval) 69105 Given 05/23/2010 Pneumococcal PPSV23 17476 Given 05/23/2010 Influenza Virus Split 3 Yrs And Above For Intramuscular Use 58984 Given 05/15/2009 Influenza Vaccine 41450 Given 06/05/2008 Influenza Vaccine Q2036 Given Unknown Influenza Vaccine 3 Years Of Age Or Older (Flulaval) 09286 Given Unknown Pneumococcal PPSV23 Vital Signs Date [...] lb BMI (Body Mass Index) 22.8 kg/m2 Wilson Body Weight 130 lb Weight 63.958 kg BSA (Body Surface Area) 1.72 m2 Results Description No Information Available Procedures Date Code Description Status 01/15/2021 93654 Office/Outpatient Established Mo d MDM 30-39 Min Completed 08/12/2015 37952995 Mammogram Completed Medical Devices Description No Information Available Encounters Type Date Location Provider Dx Diagnosis Office Visit 01/15/2021 11:30a [facility] harmony Yanez MD R91.8 Other nonspecific abnormal finding of rakan ng field J47.9 Bronchiectasis, uncomplicate d Z79.02 skilled nursing (current) use of a 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/antiplatelets Z66 Do not resuscitate Assessments Date Code Description Provider 05/20/2021 R91.8 Other nonspecific abnormal findi ng of lung field Todd Yanez MD 05/20/2021 J47.9 Bronchiectasis, uncomplicated La wrroland Yanez MD 05/20/2021 J44.9 Chronic obstructive pulmonary di sease, unspecified Todd Yanez MD 05/20/2021 Z79.02 skilled nursing (current) use of antit hrombotics/antiplatelets Todd Yanez MD 05/20/2021 Z66 Do not resuscitate Todd reinoso MD 01/15/2021 R91.8 Other nonspecific abnormal findi ng of lung field Todd Yanez MD 01/15/2021 J47.9 Bronchiectasis, uncomplicated La severino Yanez MD 01/15/2021 Z79.02 skilled nursing (current) use of antit hrombotics/antiplatelets Todd Yanez MD 01/15/2021 Z66 Do not resuscitate Todd reionso MD Plan of Treatment Future Appointment(s):* 09/18/2021 1:00 pm - Todd Yanez MD [facility] 05/20/2021 - Todd Yanez MD* R91.8 Other nonspecific abnormal finding of lung field * J47.9 Bronchiectasis, uncomplicated * J44.9 Chronic obstructive pulmonary disease, unspecified * 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
--- OUTSIDE RECORDS SUMMARY | 2021-06-22 10:37 | CCD | Continuity of Care Document ---
Author Organization Unknown Address Unknown Phone Unavailable Care Team Providers Care Cutting Machine Operator Helper Name Role Phone Todd Yanez MD AUTM [phone] Gilda Wang DO AUTM [phone] Problems Active Problems Provider Date Coronary arteriosclerosis Shantel Meléndez PA-C Onset: 2010 Patient post percutaneous transluminal coronary angiop lasty Shantel Meléndez PA-C Onset: 08/07/2011 Chronic diastolic heart failure Shantel Meléndez PA-C Onset: 08/07/2011 Benign hypertensive heart disease with congestive card iac failure Shantel Meléndez PA-C Onset: 08/07/2011 Electrocardiogram abnormal Shantel Meléndez PA-C Onset: 08/07 Right bundle branch block AND left anterior fascicular block Shantel Meléndez, PA-C Onset: 06/07/2013 Mitral valve disorder Shantel Meléndez, PA-C Onset: 08/07/2011 Pure hypercholesterolemia Shantel Meléndez, PA-C Onset: 2010 Obesity Shantel Meléndez PA-C Onset: 08/07/2011 Complete atrioventricular block SYDNEE AyalaP-C Onset: 04/21/2017 Dietary management surveillance Shantel Meléndez PA-C Onset: 07/27/2017 Cardiac pacemaker in situ Shantel Meléndez PA-C Onset: 2016 Social History Type Date Description [...] 1/2 ppd from age 17 until quit 2002 Exercise Type/Frequency Does housework sporadica lly Exercise [...] H/L Range Note CBC without Differential 02/17/2021 [facility] - not inter faced (315)- - White Blood Count 12.8 High 5.0-10.0 Red Blood Count 2.82 Low 4.00-5.40 Platelets 257 172-450 Hemoglobin 8.6 Hematocrit 27.4 CMP 02/17/2021 [facility] - not interfaced (315)- - Albumin Serum/Plasma [...] 1.8-2.4 Procedures Date Code Description Status 03/24/2021 59142 Office/Outpatient Established Mo d MDM 30-39 Min Completed 03/24/2021 40310 ECG 12-Lead Completed 12/20/2020 42320 Remote Pacemaker/Cardio-Defibril lator Data Acquistion Completed 12/20/2020 19793 Remote Interrogation Device Eval Pacemaker System Up To 90 Days Completed Medical Devices Description No Information Available Encounters Type Date Location Provider Dx Diagnosis Office Visit 03/24/2021 10:15a Main Office Shantel Meléndez PA-C I25.1 0 Athscl heart disease of [place] coronary artery w/o ang pctrs Z95.5 Presence [...] Provider 03/24/2021 I25.10 Atherosclerotic heart disease of [place] coronary artery with Shantel Meléndez PA-C 03/24/2021 Z95.5 Presence of coronary angioplasty implant and graft DONAVON StevensonC 03/24/2021 I50.32 Chronic diastolic (congestive) h eart failure DONAVON StevensonC 03/24/2021 I11.0 Hypertensive heart disease with heart failure DONAVON StevensonC 03/24/2021 R94.31 Abnormal electrocardiogram [ECG] [EKG] DONAVON StevensonC 03/24/2021 I45.2 Bifascicular block Shantel Sanchez w, DONAVONC 03/24/2021 I34.0 Nonrheumatic mitral (valve) insu fficiency DONAVON StevensonC 03/24/2021 E78.00 Pure hypercholesterolemia, unspe cified DONAVON StevensonC 03/24/2021 I44.2 Atrioventricular block, complete Shantel Meléndez PA-C 03/24/2021 Z95.0 Presence of cardiac pacemaker Fabiola Emerson PA-C 12/20/2020 Z95.0 Presence of cardiac pacemaker Amauri cer/Icd Clinic Plan of Treatment Future Appointment(s):* 03/25/2022 11:15 am - Shantel Meléndez PA-C at Main Office * 09/24/2021 10:15 am - Shantel Meléndez PA-C at Main Office 03/24/2021 - Shantel Meléndez PA-C* I25.10 Atherosclerotic heart disease of [place] coronary artery with * Z95.5 Presence of [...]
--- OUTSIDE RECORDS SUMMARY | 2021-06-22 10:37 | CCD ---
Author Author [facility] Organization [facility] Address Unknown Phone Unavailable Care Team Providers Care Brewery Pumper Name Role Phone Flakito Donaldson Unavailable PROBLEMS Type Condition ICD9-CM Code EFH72-MG Code Onset Dates Condition S tatus W/U Status Risk SNOMED Code Notes Problem Chronic obstructive pulmonary disease, unspecified COPD ty pe J44.9 Active confirmed 05004586 Problem Postnasal drip R09.82 Active confirmed 51505 007 Problem Multifocal pneumonia J18.9 Active confirmed 413962750 Problem Coronary artery disease of n ative artery of [place] heart with stable angina pectoris I25.118 Active confirmed 782890152 Problem 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 Active conf irmed 24836387 ALLERGIES Allergen (clinical drug ingredient) Drug/Non Drug Allergy do cumented on EMR Reaction Allergy Type Onset Date Status dexamethasone Dexamethasone([facility] Code:[address]-46) Rash Drug A llergy Active Statins muscle pain Non Drug Allergy Active Penicillin (For Allergies Use Only) Hives Drug Allerg y 03/31/2021 Active ENCOUNTERS from 1935 to 2021-04-07 Encounter Location Date Provider Diagnosis [facility] [place] [phone] [place] [address] Mar, Flakito Donaldson Multifocal pneumonia J18.9 ; 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 ; Postnasal drip R09.82 ; Coronary artery disease of [place] artery of [place] heart with stable angina pectoris I25.118 and Chronic obstructive pulmonary disease, unspecified COPD type J44.9 IMMUNIZATIONS No Information SOCIAL HISTORY Tobacco Use: Social History Observation Description Date Details (start date - stop date) Never Smoker Sex Assigned At : Social History Observation Description Sex Assigned At Unknown Education: Question Answer Notes Level of Education: Finished College Language: Question Answer Notes Languages spoken: Romanian Hinduism: Question Answer Notes Hinduism 08 [employer] Alcohol Screening: Question Answer Notes Did you have a drink containing alcohol in the past year? No Points 0 Interpretation Negative Tobacco Use: Question Answer Notes Are you a: never smoker REASON FOR REFERRAL No Information VITAL SIGNS Weight 140 lbs Mar, Height 67 in Mar, BMI 21.92 kg/m2 Mar, Heart Rate 102 /min Mar, Respiratory Rate 24 /min Mar, Temperature 98 degrees Fahrenheit Mar, Oximetry 96 Mar, Blood pressure systolic 126 mm Hg Mar, Blood pressure diastolic 68 mm Hg Mar, MEDICATIONS Medication SIG (Take, Route, Frequency, Duration) Notes Start Da te End Date Status Ferrous Sulfate 325 (65 Fe) MG 1 tablet Orally Once a day for 30 day( s) Active Calcitriol 0.25 MCG Oral for 30 Act valentin Mucinex 600 MG 1 tablet as needed Orally every 12 hrs Active Advair Diskus 500-50 MCG/DOSE 1 puff Inhalation Twice a day Active Sodium Bicarbonate 325 MG as directed Orally Active Diclofenac Sodium 1 % External for 25 Active Pantoprazole Sodium 40 MG Oral for 30 Active Azopt 1 % Ophthalmic for 50 Active Sucralfate 1 GM Oral for 30 Active Albuterol Sulfate (2.5 MG/3ML) 0.083% 3 ml as needed Inhalation brandon ry 6 hrs Active Nitroglycerin 0.4 MG as directed Sublingual Active Flonase Allergy Relief 50 MCG/ACT 1 spray in each nost ril Nasally Once a day for 30 day(s) Mar, Active Tylenol 325 MG 1 tablet as needed Orally every 4 hrs Active Senna 8.6 MG 2 tablets at bedtime as needed Orally Once a day for 3 0 day(s) Active Zofran 4 MG 1 tablet Orally Once a day for 30 day(s) Active Albuterol Sulfate HFA 108 (90 Base) MCG/ACT Inhalation for 25 Active Allopurinol 100 MG Oral for 30 Acti ve Vitamin D (Cholecalciferol) 10 MCG (400 UNIT) 1 tablet Orally Once a day for 30 day(s) Active Milk of Magnesia 400 MG/5ML 5 ml at least 4 hours betw een doses as needed Orally Four times a day Active Lumigan 0.01 % Ophthalmic for 75 Ac tive Xarelto 15 MG Oral Active Torsemide 10 MG 1 tablet Orally Once a day Active PROCEDURES No Information RESULTS No Results REASON FOR VISIT [facility], d/c 03/21, multifocal pneumonia/sepsis MEDICAL (GENERAL) HISTORY Type Description Date Medical History COPD Surgical History No Surgical history information Goals Section No Information Health Concerns No Information MEDICAL EQUIPMENT No Information MENTAL STATUS No Information FUNCTIONAL STATUS No Information ASSESSMENTS Encounter Date Diagnosis Assessment Notes Treatment Notes Treatm ent Clinical Notes Mar, Multifocal pneumonia (ICD-10 - J18.9) Patient is doing better, 03/24 and 03/17 AFB smear was negative and culture were sent still pending fungal smear and culture are pending. Beta 3 glucan negative, Urine pneumococcal antigen legionnaire antigen were negative, QuantiFERON-TB gold all negative. She was treated with 7 days of IV meropenem with improvement of her symptoms. Since she had 3 different hospitalization I ordered AFB smear and culture to rule out coinfection with nontuberculous mycobacteria. Patient will be called if results are positive otherwise she will follow as needed. Mar, Pseudomonas aeruginosa infection (ICD-10 - A49.8 ) Treated with 7 days of IV meropenem, if she has recurrence due to bronchiectasis she may benefit from ERENDIRA nebs Mar, Postnasal drip (ICD-10 - R09.82) Patient thinks her cough currently is due to postnasal drip and therefore we will try Flonase Mar, Coronary artery disease of n ative artery of [place] heart with stable angina pectoris (ICD-10 - I25.118) Mar, Chronic obstructive pulmonar y disease, unspecified COPD type (ICD- 10 - J44.9) Case DW Dr Yanez who will see her in [facility] in May unless worse PLAN OF TREATMENT Medication Medication Name Sig Start Date Stop Date Xarelto 15 MG Oral Albuterol Sulfate (2.5 MG/3ML) 0.083% 3 ml as needed Inhalation every 6 hrs Flonase Allergy Relief 50 MCG/ACT 1 spray in each nost ril Nasally Once a day for 30 day(s) Mar, Advair Diskus 500-50 MCG/DOSE 1 puff Inhalation Twice a day Torsemide 10 MG 1 tablet Orally Once a day Nitroglycerin 0.4 MG as directed Sublingual Mucinex 600 MG 1 tablet as needed Orally every 12 hrs Treatment Notes Assessment Notes Clinical Notes Multifocal pneumonia Patient is doing be tter, 03/24 and 03/17 AFB smear was negative and culture were sent still pending fungal smear and culture are pending. Beta 3 glucan negative, Urine pneumococcal antigen legionnaire antigen were negative, QuantiFERON-TB gold all negative.She was treated with 7 days of IV meropenem with improvement of her symptoms.Since she had 3 different hospitalization I ordered AFB smear and culture to rule out coinfection with nontuberculous mycobacteria. Patient will be called if results are positive otherwise she will follow as needed. Pseudomonas aeruginosa infection Treated with 7 days [...] in May unless worse Next Appt Details prn Reason: Provider Name:Ez Arnold, 2021-04-06 7 11:00:00 AM, [address] [facility], , [place], [place], [facility], Insurance Providers Payer Name Payer Address Payer Phone Insured Name Patient Relati onship to Insured Coverage Start Date Coverage End Date MEDICARE Part A and B [address] [facility] [id number] SILVIA BAER [facility] [employer] [facility] CLAIM DIV [address] [facility] [phone] SILVIA BAER
--- OUTSIDE RECORDS SUMMARY | 2021-06-22 10:37 | CCD | Continuity of Care Document ---
Author Author Gabby YANEZ MD Organization Unknown Address [address] [place] [address] Phone [phone] Care Team Providers Care Brake Holder Name Role Phone Ez Arnold D.O. AUTM [phone] Problems Active Problems Provider Date Chronic obstructive [...] 1 by mouth every day 90caps Unknown Bethany 3 1200mg Capsules by mouth twice a [...] CPT Code Status Date Vaccine Lot # [id number] Given 05/28/2015 Prevnar 13 Q2036 Given 05/27/2015 Influenza Vaccine 3 Years Of Age Or Older (Flulaval) 89319 Given 07/12/2014 Influenza Virus Split 3 Yrs And Above For Intramuscular Use Q2036 Given 07/07/2013 Influenza Vaccine 3 Years Of Age Or Older (Flulaval) Q2036 Given 05/10/2012 Influenza Vaccine 3 Years Of Age Or Older (Flulaval) Q2036 Given 06/24/2011 Influenza Vaccine 3 Years Of Age Or Older (Flulaval) 59979 Given 05/23/2010 Pneumococcal PPSV23 73728 Given 05/23/2010 Influenza Virus Split 3 Yrs And Above For Intramuscular Use 41021 Given 05/15/2009 Influenza Vaccine 85514 Given 06/05/2008 Influenza Vaccine Q2036 Given Unknown Influenza Vaccine 3 Years Of Age Or Older (Flulaval) 74312 Given Unknown Pneumococcal PPSV23 Vital Signs Date [...] lb BMI (Body Mass Index) 22.8 kg/m2 [place] Body Weight 130 lb Weight 63.958 kg BSA (Body Surface Area) 1.72 m2 Results Description No Information Available Procedures Date Code Description Status 01/15/2021 02280 Office/Outpatient Established Mo d MDM 30-39 Min Completed 08/12/2015 [id number] Mammogram Completed Medical Devices Description No Information Available Encounters Type Date Location Provider Dx Diagnosis Office Visit 01/15/2021 11:30a [facility] Lawren[facility] harmony Yanez MD R91.8 Other nonspecific abnormal finding of rakan ng field J47.9 Bronchiectasis, uncomplicate d Z79.02 care home (current) use of a 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/antiplatelets Z66 Do not resuscitate Assessments Date Code Description Provider 05/20/2021 R91.8 Other nonspecific abnormal findi ng of lung field Todd Yanez MD 05/20/2021 J47.9 Bronchiectasis, uncomplicated La wrroland Yanez MD 05/20/2021 J44.9 Chronic obstructive pulmonary di sease, unspecified Todd Yanez MD 05/20/2021 Z79.02 care home (current) use of antit hrombotics/antiplatelets Todd Yanez MD 05/20/2021 Z66 Do not resuscitate Todd reinoso MD 01/15/2021 R91.8 Other nonspecific abnormal findi ng of lung field Todd Yanez MD 01/15/2021 J47.9 Bronchiectasis, uncomplicated La severino Yanez MD 01/15/2021 Z79.02 care home (current) use of antit hrombotics/antiplatelets Todd Yanez MD 01/15/2021 Z66 Do not resuscitate Todd reinoso MD Plan of Treatment Future Appointment(s):* 09/18/2021 1:00 pm - Todd Yanez MD at [facility] 05/20/2021 - Todd Yanez MD* R91.8 Other nonspecific abnormal finding of lung field * J47.9 Bronchiectasis, uncomplicated * J44.9 Chronic obstructive pulmonary disease, unspecified * 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
--- OUTSIDE RECORDS SUMMARY | 2021-06-22 10:37 | CCD ---
Continuity of Care Document (CCD) Created on: 05/20/2021 Gabby Ash External Reference #: [id number] : [id number] Sex: Female Author Author Gabby YANEZ MD Organization Unknown Address [address] [place] [address] Phone [phone] Care Team Providers Care Impregnator [employer] Name Role Phone Ez Arnold D.O. AUTM [phone] Problems Active Problems Provider Date Chronic obstructive [...] 1 by mouth every day 90caps Unknown [place] 3 1200mg Capsules by mouth twice a [...] CPT Code Status Date Vaccine Lot # [id number] Given 05/28/2015 Prevnar 13 Q2036 Given 05/27/2015 Influenza Vaccine 3 Years Of Age Or Older (Flulaval) 35910 Given 07/12/2014 Influenza Virus Split 3 Yrs And Above For Intramuscular Use Q2036 Given 07/07/2013 Influenza Vaccine 3 Years Of Age Or Older (Flulaval) Q2036 Given 05/10/2012 Influenza Vaccine 3 Years Of Age Or Older (Flulaval) Q2036 Given 06/24/2011 Influenza Vaccine 3 Years Of Age Or Older (Flulaval) 26473 Given 05/23/2010 Pneumococcal PPSV23 15003 Given 05/23/2010 Influenza Virus Split 3 Yrs And Above For Intramuscular Use 15863 Given 05/15/2009 Influenza Vaccine 82462 Given 06/05/2008 Influenza Vaccine Q2036 Given Unknown Influenza Vaccine 3 Years Of Age Or Older (Flulaval) 94180 Given Unknown Pneumococcal PPSV23 Vital Signs Date [...] lb BMI (Body Mass Index) 22.8 kg/m2 [place] Body Weight 130 lb Weight 63.958 kg BSA (Body Surface Area) 1.72 m2 Results Description No Information Available Procedures Date Code Description Status 01/15/2021 46037 Office/Outpatient Established Mo d MDM 30-39 Min Completed 08/12/2015 [id number] Mammogram Completed Medical Devices Description No Information Available Encounters Type Date Location Provider Dx Diagnosis Office Visit 01/15/2021 11:30a [facility] Law[facility] harmony Yanez MD R91.8 Other nonspecific abnormal finding of rakan ng field J47.9 Bronchiectasis, uncomplicate d Z79.02 intermediate (current) use of a 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/antiplatelets Z66 Do not resuscitate Assessments Date Code Description Provider 05/20/2021 R91.8 Other nonspecific abnormal findi ng of lung field Todd Yanez MD 05/20/2021 J47.9 Bronchiectasis, uncomplicated La wrroland Yanez MD 05/20/2021 J44.9 Chronic obstructive pulmonary di sease, unspecified Todd Yanez MD 05/20/2021 Z79.02 intermediate (current) use of antit hrombotics/antiplatelets Todd Yanez MD 05/20/2021 Z66 Do not resuscitate Todd reinoso MD 01/15/2021 R91.8 Other nonspecific abnormal findi ng of lung field Todd Yanez MD 01/15/2021 J47.9 Bronchiectasis, uncomplicated La severino Yanez MD 01/15/2021 Z79.02 intermediate (current) use of antit hrombotics/antiplatelets Todd Yanez MD 01/15/2021 Z66 Do not resuscitate Todd reinoso MD Plan of Treatment Future Appointment(s):* 09/18/2021 1:00 pm - Todd Yanez MD at [facility] 05/20/2021 - Todd Yanez MD* R91.8 Other nonspecific abnormal finding of lung field * J47.9 Bronchiectasis, uncomplicated * J44.9 Chronic obstructive pulmonary disease, unspecified * 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
--- OUTSIDE RECORDS SUMMARY | 2021-06-22 10:37 | CCD ---
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 Active confirmed 686877609 Problem 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 Active conf irmed 55797732 ALLERGIES Allergen (clinical drug ingredient) Drug/Non Drug Allergy do cumented on EMR Reaction Allergy Type Onset Date Status dexamethasone Dexamethasone([facility] Code:[address]-80) Rash Drug A llergy Active Statins muscle pain Non Drug Allergy Active Penicillin (For Allergies Use Only) Hives Drug Allerg y 03/31/2021 Active ENCOUNTERS from 1935 to 2021-04-01 Encounter Location Date Provider Diagnosis [address] [phone] [place] [address] Mar, Flakito Donaldson IMMUNIZATIONS No Information SOCIAL HISTORY Tobacco Use: Social History Observation Description Date Details (start date - stop date) Never Smoker Sex Assigned At : Social History Observation Description Sex Assigned At Unknown Education: Question Answer Notes Level of Education: Finished College Language: Question Answer Notes Languages spoken: Bermudian Gnosticism: Question Answer Notes Gnosticism 08 Quaker Alcohol Screening: Question Answer Notes Did you [...] Information RESULTS No Results REASON FOR VISIT allergy MEDICAL (GENERAL) HISTORY Type Description Date Medical [...] tablet as needed Orally every 12 hrs Insurance Providers Payer Name Payer Address Payer Phone Insured Name Patient Relati onship to Insured Coverage Start Date Coverage End Date MEDICARE Part A and B [address] [facility] [id number] SILVIA BAER IRA [facility] OPTIONS [facility] CLAIM DIV [address] [facility] [phone] SILVIA BAER
--- OUTSIDE RECORDS SUMMARY | 2021-06-22 10:37 | CCD ---
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 Active confirmed 53373909 Problem Chronic heart failure with preserved ejection fraction I50.32 Active confirmed 002803743 Problem Macular degeneration (senile) of retina, unspecified H35.30 Active confirmed 793932229 Problem Pacemaker Z95.0 Active confirmed 901748968 Problem 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 Active conf irmed 19846061 Problem 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 Active confirmed 888121123 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 Active confirmed 408549095 Problem Glaucoma, unspecified glaucoma type, unspecified lateralit y H40.9 Active confirmed 92640615 Problem Chronic deep vein thrombosis (DVT) of both lower extremities, unspecified vein I82.503 Active confirmed 6334484054731 06 Problem Gout, unspecified cause, unspecified chronicity, unspecified site M10.9 Active confirmed 20309004 Problem Osteoarthritis, unspecified osteoarthritis type, unspecified site M19.90 Active confirmed 346546524 ALLERGIES Allergen (clinical drug ingredient) Drug/Non Drug Allergy do cumented on EMR Reaction Allergy Type Onset Date Status dexamethasone Dexamethasone(NDC Code:[address]-70) Rash Drug A llergy Active Statins muscle pain Non Drug Allergy Active Penicillin (For Allergies Use Only) Hives Drug Allerg y 03/31/2021 Active ENCOUNTERS from 1935 to 2021-05-22 Encounter Location Date Provider Diagnosis [facility] Amy [address] [facility] [phone] [place] [address] 15 May, 2021 Ez Arnold IMMUNIZATIONS No Information SOCIAL HISTORY Tobacco Use: Social History Observation Description Date Details (start date - stop date) Former Smoker Sex Assigned At : Social History Observation Description Sex Assigned At Unknown Education: Question Answer Notes Level of Education: Finished College Audit Question Answer Notes Total Score: 0 Interpretation: Alcohol Education Language: Question Answer Notes Languages spoken: East Timorese Taoist: Question Answer Notes Taoist 08 Religious Drug and Alcohol Question Answer Notes Total [...] Information RESULTS No Results REASON FOR VISIT Sucralfate MEDICAL (GENERAL) HISTORY Type Description Date Medical [...] 30 Days Next Appt Details Provider Name:Ez Catalina, 2020-10-2 9 01:30:00 PM, [address] [facility], , [place], [address], Insurance Providers Payer Name Payer Address Payer Phone Insured Name Patient Relati onship to Insured Coverage Start Date Coverage End Date [employer] C[employer] OPTIONS [facility] CLAIM DIV [address] [facility] [id number] SILVIA BAER MEDICARE Part A and B [address] [facility] [phone] SILVIA BAER self
--- OUTSIDE RECORDS SUMMARY | 2021-06-22 10:37 | CCD ---
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 Active confirmed 58539572 Problem Chronic heart failure with preserved ejection fraction I50.32 Active confirmed 284148950 Problem Macular degeneration (senile) of retina, unspecified H35.30 Active confirmed 652432907 Problem Pacemaker Z95.0 Active confirmed 571605051 Problem 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 Active conf irmed 54184479 Problem 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 Active confirmed 802198102 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 Active confirmed 420736437 Problem Glaucoma, unspecified glaucoma type, unspecified lateralit y H40.9 Active confirmed 26078896 Problem Chronic deep vein thrombosis (DVT) of both lower extremities, unspecified vein I82.503 Active confirmed 7090968431374 06 Problem Gout, unspecified cause, unspecified chronicity, unspecified site M10.9 Active confirmed 95425543 Problem Osteoarthritis, unspecified osteoarthritis type, unspecified site M19.90 Active confirmed 721085715 ALLERGIES Allergen (clinical drug ingredient) Drug/Non Drug Allergy do cumented on EMR Reaction Allergy Type Onset Date Status dexamethasone Dexamethasone(NDC Code:[address]-72) Rash Drug A llergy Active Statins muscle pain Non Drug Allergy Active Penicillin (For Allergies Use Only) Hives Drug Allerg y 03/31/2021 Active ENCOUNTERS from 1935 to 2021-05-20 Encounter Location Date Provider Diagnosis [facility] Amy [address] [facility] [phone] [place] [address] 14 May, 2021 Ez Arnold 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 IMMUNIZATIONS No Information SOCIAL HISTORY Tobacco Use: Social History Observation Description Date Details (start date - stop date) Former Smoker Sex Assigned At : Social History Observation Description Sex Assigned At Unknown Education: Question Answer Notes Level of Education: Finished College Audit Question Answer Notes Total Score: 0 Interpretation: Alcohol Education Language: Question Answer Notes Languages spoken: Nigerien Hindu: Question Answer Notes Hindu 08 Sikh Drug and Alcohol Question Answer Notes Total [...] Information RESULTS No Results REASON FOR VISIT refill-carafat and torsemide MEDICAL (GENERAL) HISTORY Type Description Date Medical [...] Treatment Notes Treatm ent Clinical Notes May, Coronary artery disease of n ative artery of [place] heart with stable angina pectoris (ICD-10 - I25.118) PLAN OF TREATMENT Medication Medication Name Sig [...] 30 Days Next Appt Details Provider Name:Ez Arnold, 2021-10-2 9 01:30:00 PM, [address] [facility], , [place], [address], Insurance Providers Payer Name Payer Address Payer Phone Insured Name Patient Relati onship to Insured Coverage Start Date Coverage End Date AARP HEALTH CARE OPTIONS [facility] CLAIM DIV [address] [facility] [phone] SILVIA BAER MEDICARE Part A and B [address] [facility] [phone] SILVIA BAER self
--- OUTSIDE RECORDS SUMMARY | 2021-06-22 10:38 | CCD ---
Author Author [facility] Organization [facility] Address Unknown Phone Unavailable Care Team Providers Care Meat Clerk Name Role Phone Karlo Jones MD Unavailable Unavailable Karlo Jones MD Unavailable Unavailable Karlo Jones MD Unavailable Unavailable Karlo Jones MD Unavailable Unavailable Karlo Jones MD Unavailable Unavailable Karlo Jones MD Unavailable Unavailable Karlo Jones MD Unavailable Unavailable Karlo Jones MD Unavailable Unavailable Karlo Jones MD Unavailable Unavailable Karlo Jones MD Unavailable Unavailable Karlo Jones MD Unavailable Unavailable Karlo Jones MD Unavailable Unavailable Karlo Jones MD Unavailable Unavailable Karlo Jones MD Unavailable Unavailable Karlo Jones MD Unavailable Unavailable Karlo Jones MD Unavailable Unavailable Karlo Jones MD Unavailable Unavailable Karlo Jones MD Unavailable Unavailable Karlo Jones MD Unavailable Unavailable Karlo Jones MD Unavailable Unavailable Karlo Jones MD Unavailable Unavailable Karlo Jones MD Unavailable Unavailable Karlo Jones MD Unavailable Unavailable Karlo Jones MD Unavailable Unavailable Karlo Jones MD Unavailable Unavailable Karlo Jones MD Unavailable Unavailable Karlo Jones MD Unavailable Unavailable Karlo Jones MD Unavailable Unavailable Robert, S Jeffrey PEREYRA Unavailable Unavailable Robert, S Jeffrey MD Unavailable Unavailable Robert, S Jeffrey MD Unavailable Unavailable Robert, S Jeffrey MD Unavailable Unavailable Robert, S Jeffrey MD Unavailable Unavailable Robert, S Jeffrey MD Unavailable Unavailable Robert, S Jeffrey MD Unavailable Unavailable Robert, S Jeffrey MD Unavailable Unavailable Robert, S Jeffrey MD Unavailable Unavailable Robert, S Jeffrey MD Unavailable Unavailable Robert, S Jeffrey MD Unavailable Unavailable Robert, S Jeffrey MD Unavailable Unavailable Robert, S Jeffrey MD Unavailable Unavailable Robert, S Jeffrey MD Unavailable Unavailable Robert, S Jeffrey MD Unavailable Unavailable Robert, S Jeffrey MD Unavailable Unavailable Robert, S Jeffrey MD Unavailable Unavailable Robert, S Jeffrey MD Unavailable Unavailable Robert, S Jeffrey MD Unavailable Unavailable Robert, S Jeffrey MD Unavailable Unavailable Robert, S Jeffrey MD Unavailable Unavailable Robert, S Jeffrey MD Unavailable Unavailable Symenow, Sylvie Shantel PA Unavailable Unavailable Symenow, Sylvie Shantel PA Unavailable Unavailable Symenow, Sylvie Shantel PA Unavailable Unavailable Symenow, Sylvie Shantel PA Unavailable Unavailable Symenow, Sylvie Shantel PA Unavailable Unavailable Symenow, Sylvie Shantel PA Unavailable Unavailable Symenow, Sylvie Shantel PA Unavailable Unavailable Symenow, Sylvie Shantel PA Unavailable Unavailable Symenow, Sylvie Shantel PA Unavailable Unavailable Symenow, Sylvie Shantel PA Unavailable Unavailable Symenow, Sylvie Shantel PA Unavailable Unavailable Symenow, Sylvie Shantel PA Unavailable Unavailable Symenow, Sylvie Shantel PA Unavailable Unavailable Symenow, Sylvie Shantel PA Unavailable Unavailable Symenow, Sylvie Shantel PA Unavailable Unavailable Symenow, Sylvie Shantel PA Unavailable Unavailable Symenow, Sylvie Shantel PA Unavailable Unavailable Symenow, Sylvie Shantel PA Unavailable Unavailable Symenow, Sylvie Shantel PA Unavailable Unavailable Symenow, Sylvie Shantel PA Unavailable Unavailable Symenow, Sylvie Shantel PA Unavailable Unavailable Symenow, Sylvie Shantel PA Unavailable Unavailable Symenow, Sylvie Shantel PA Unavailable Unavailable Symenow, Sylvie Shantel PA Unavailable Unavailable Symenow, Sylvie Shantel PA Unavailable Unavailable Symenow, Sylvie Shantel PA Unavailable Unavailable Symenow, Sylvie Shantel PA Unavailable Unavailable Symenow, Sylvie Shantel PA Unavailable Unavailable Symenow, Sylvie Shantel PA Unavailable Unavailable Symenow, Sylvie Shantel PA Unavailable Unavailable Symenow, Sylvie Shantel PA Unavailable Unavailable Symenow, Sylvie Shantel PA Unavailable Unavailable Symenow, Sylvie Shantel PA Unavailable Unavailable Symenow, Sylvie Shantel PA Unavailable Unavailable RENAE ASHLEY, LAVINIA Unavailable Unavailable Kathleen, Gilda DO Unavailable Unavailable Kathleen, Gilda DO Unavailable Unavailable Kathleen, Gilda DO Unavailable Unavailable Kathleen, Gilda DO Unavailable Unavailable Kathleen, Gilda DO Unavailable Unavailable Kathleen, Gilda DO Unavailable Unavailable Kathleen, Gilda DO Unavailable Unavailable Kathleen, Gilda DO Unavailable Unavailable Kathleen, Gilda DO Unavailable Unavailable Kathleen, Gilda DO Unavailable Unavailable Kathleen, Gilda DO Unavailable Unavailable Kathleen, Gilda DO Unavailable Unavailable Kathleen, Gilda DO Unavailable Unavailable Kathleen, Gilda DO Unavailable Unavailable Kathleen, Gilda DO Unavailable Unavailable Kathleen, Gilda DO Unavailable Unavailable Kathleen, Gilda DO Unavailable Unavailable Kathleen, Gilda DO Unavailable Unavailable Kathleen, Gilda DO Unavailable Unavailable Kathleen, Gilda DO Unavailable Unavailable Kathleen, Gilda DO Unavailable Unavailable Kathleen, Gilda DO Unavailable Unavailable Kathleen, Gilda DO Unavailable Unavailable Kathleen, Gilda DO Unavailable Unavailable Kathleen, Gilda DO Unavailable Unavailable Kathleen, Gilda DO Unavailable Unavailable Kathleen, Gilda DO Unavailable Unavailable Kathleen, Gilda DO Unavailable Unavailable Kathleen, Gilda DO Unavailable Unavailable Kathleen, Gilda DO Unavailable Unavailable Kathleen, Gilda DO Unavailable Unavailable Kathleen, Gilda DO Unavailable Unavailable Kathleen, Gilda DO Unavailable Unavailable Kathleen, Gilda DO Unavailable Unavailable Kathleen, Gilda DO Unavailable Unavailable Kathleen, Gilda DO Unavailable Unavailable Kathleen, Gilda DO Unavailable Unavailable Kathleen, Gilda DO Unavailable Unavailable Kathleen, Gilda DO Unavailable Unavailable Kathleen, Gilda DO Unavailable Unavailable Kathleen, Gilda DO Unavailable Unavailable Kathleen, Gilda DO Unavailable Unavailable Kathleen, Gilda DO Unavailable Unavailable Kathleen, Gilda DO Unavailable Unavailable Kathleen, Gilda DO Unavailable Unavailable Kathleen, Gilda DO Unavailable Unavailable Kathleen, Gilda DO Unavailable Unavailable Kathleen, Gilda DO Unavailable Unavailable Kathleen, Gilda DO Unavailable Unavailable Kathleen, Glida DO Unavailable Unavailable Kathleen, Gilda DO Unavailable Unavailable Kathleen, Gilda DO Unavailable Unavailable Kathleen, Gilda DO Unavailable Unavailable Kathleen, Gilda DO Unavailable Unavailable Kathleen, Gilda DO Unavailable Unavailable Kathleen, Gilda DO Unavailable Unavailable Kathleen, Gilda DO Unavailable Unavailable Kathleen, Gilda DO Unavailable Unavailable Kathleen, Gilda DO Unavailable Unavailable Kathleen, Gilda DO Unavailable Unavailable Kathleen, Gilda DO Unavailable Unavailable Kathleen, Gilda DO Unavailable Unavailable Kathleen, Gilda DO Unavailable Unavailable Kathleen, Iglda DO Unavailable Unavailable Kathleen, Gilda DO Unavailable Unavailable Kathleen, Gilda DO Unavailable Unavailable Kathleen, Gilda DO Unavailable Unavailable Kathleen, Gilda DO Unavailable Unavailable Kathleen, Gilda DO Unavailable Unavailable Kathleen, Gilda DO Unavailable Unavailable Kathleen, Gilda DO Unavailable Unavailable Kathleen, Gilda DO Unavailable Unavailable Kathleen, Gilda DO Unavailable Unavailable Kathleen, Gilda DO Unavailable Unavailable Kathleen, Gilda DO Unavailable Unavailable Kathleen, Gilda DO Unavailable Unavailable Kathleen, Gilda DO Unavailable Unavailable Kathleen, Gilda DO Unavailable Unavailable Kathleen, Gidla DO Unavailable Unavailable Kathleen, Gilda DO Unavailable Unavailable Kathleen, Gilda DO Unavailable Unavailable Kathleen, Gilda DO Unavailable Unavailable Kathleen, Gilda DO Unavailable Unavailable Kathleen, Gilda DO Unavailable Unavailable Kathleen, Gilda DO Unavailable Unavailable Kathleen, Gilda DO Unavailable Unavailable Kathleen, Gilda DO Unavailable Unavailable Kathleen, Gilda DO Unavailable Unavailable Kathleen, Gilda DO Unavailable Unavailable Kathleen, Gilda DO Unavailable Unavailable Kathleen, Gilda DO Unavailable Unavailable Kathleen, Gilda DO Unavailable Unavailable Kathleen, Gilda DO Unavailable Unavailable Kathleen, Gilda DO Unavailable Unavailable Kathleen, Gilda DO Unavailable Unavailable Kathleen, Gilda DO Unavailable Unavailable Kathleen, Gilda DO Unavailable Unavailable Kathleen, Gilda DO Unavailable Unavailable Kathleen, Gilda DO Unavailable Unavailable Kathleen, Gilda DO Unavailable Unavailable Kathleen, Gilda DO Unavailable Unavailable Kathleen, Gilda DO Unavailable Unavailable Kathleen, Gilda DO Unavailable Unavailable Kathleen, Gilda DO Unavailable Unavailable Kathleen, Gilda DO Unavailable Unavailable Kathleen, Gilda DO Unavailable Unavailable Kathleen, Gilda DO Unavailable Unavailable Kathleen, Gilda DO Unavailable Unavailable Kathleen, Gilda DO Unavailable Unavailable Kathleen, Gilda DO Unavailable Unavailable Kathleen, Gilda DO Unavailable Unavailable Kathleen, Gilda DO Unavailable Unavailable Kathleen, Gilda DO Unavailable Unavailable Kathleen, Gilda DO Unavailable Unavailable Kathleen, Gilda DO Unavailable Unavailable Kathleen, Gilda DO Unavailable Unavailable Kathleen, Gilda DO Unavailable Unavailable Kathleen, Gilda DO Unavailable Unavailable Kathleen, Gilda DO Unavailable Unavailable Kathleen, Gilda DO Unavailable Unavailable Kathleen, Gilda DO Unavailable Unavailable Kathleen, Gilda DO Unavailable Unavailable Kathleen, Gilda DO Unavailable Unavailable Kathleen, Gilda DO Unavailable Unavailable Kathleen, Gilda DO Unavailable Unavailable Kathleen, Gilda DO Unavailable Unavailable Kathleen, Gilda DO Unavailable Unavailable Kathleen, Gilda DO Unavailable Unavailable Kathleen, Gilda DO Unavailable Unavailable Kathleen, Gilda DO Unavailable Unavailable Kathleen, Gilda DO Unavailable Unavailable Kathleen, Gilda DO Unavailable Unavailable Kathleen, Gilda DO Unavailable Unavailable Kathleen, Gilda DO Unavailable Unavailable Kathleen, Gilda DO Unavailable Unavailable Kathleen, Gilda DO Unavailable Unavailable Kathleen, Gilda DO Unavailable Unavailable Kathleen, Gilda DO Unavailable Unavailable Kathleen, Gilda DO Unavailable Unavailable Kathleen, Gilda DO Unavailable Unavailable Kathleen, Gilda DO Unavailable Unavailable Kathleen, Gilda DO Unavailable Unavailable Kathleen, Gilda DO Unavailable Unavailable Kathleen, Gilda DO Unavailable Unavailable Kathleen, Gilda DO Unavailable Unavailable Kathleen, Gilda DO Unavailable Unavailable Kathleen, Gilda DO Unavailable Unavailable Kathleen, Gilda DO Unavailable Unavailable KIYA, CRISTOBAL MD Unavailable Unavailable KIYA, CRISTOBAL MD Unavailable Unavailable KIYA, CRISTOBAL MD Unavailable Unavailable KIYA, CRISTOBAL MD Unavailable Unavailable KIYA, CRISTOBAL MD Unavailable Unavailable KIYA, CRISTOBAL MD Unavailable Unavailable KIYA, CRISTOBAL MD Unavailable Unavailable KIYA, CRISTOBAL MD Unavailable Unavailable KIYA, CRISTOBAL MD Unavailable Unavailable KIYA, CRISTOBAL MD Unavailable Unavailable KIYA, CRISTOBAL MD Unavailable Unavailable KIYA, CRISTOBAL MD Unavailable Unavailable KIYA, CRISTOBAL MD Unavailable Unavailable KIYA, CRISTOBAL MD Unavailable Unavailable KIYA, CRISTOBAL MD Unavailable Unavailable KIYA, CRISTOBAL MD Unavailable Unavailable KIYA, CRISTOBAL MD Unavailable Unavailable KIYA, CRISTOBAL MD Unavailable Unavailable KIYA, CRISTOBAL MD Unavailable Unavailable KIYA, CRISTOBAL MD Unavailable Unavailable KIYA, CRISTOBAL MD Unavailable Unavailable KIYA, CRISTOBAL MD Unavailable Unavailable KIYA, CRISTOBAL MD Unavailable Unavailable KIYA, CRISTOBAL MD Unavailable Unavailable KIYA, CRISTOBAL MD Unavailable Unavailable KIYA, CRISTOBAL MD Unavailable Unavailable KIYA, CRISTOBAL MD Unavailable Unavailable KIYA, CRISTOBAL MD Unavailable Unavailable KIYA, CRISTOBAL MD Unavailable Unavailable KIYA, CRISTOBAL MD Unavailable Unavailable KIYA, CRISTOBAL MD Unavailable Unavailable KIYA, CRISTOBAL MD Unavailable Unavailable KIYA, CRISTOBAL MD Unavailable Unavailable KIYA, CRISTOBAL MD Unavailable Unavailable KIYA, CRISTOBAL MD Unavailable Unavailable KIYA, CRISTOBAL MD Unavailable Unavailable KIYA, CRISTOBAL MD Unavailable Unavailable KIYA, CRISTOBAL MD Unavailable Unavailable KIYA, CRISTOBAL MD Unavailable Unavailable KIYA, CRISTOBAL MD Unavailable Unavailable KIYA, CRISTOBAL MD Unavailable Unavailable KIYA, CRISTOBAL MD Unavailable Unavailable IKYA, CRISTOBAL MD Unavailable Unavailable KIYA, CRISTOBAL MD Unavailable Unavailable KIYA, CRISTOBAL MD Unavailable Unavailable KIYA, CRISTOBAL MD Unavailable Unavailable KIYA, CRISTOBAL MD Unavailable Unavailable KIYA, CRISTOBAL MD Unavailable Unavailable KIYA, CRISTOBAL MD Unavailable Unavailable KIYA, CRISTOBAL MD Unavailable Unavailable KIYA, CRISTOBAL MD Unavailable Unavailable KIYA, CRISTOBAL MD Unavailable Unavailable KIYA, CRISTOBAL MD Unavailable Unavailable KIYA, CRISTOBAL MD Unavailable Unavailable KIYA, CRISTOBAL MD Unavailable Unavailable KIYA, CRISTOBAL MD Unavailable Unavailable KIYA, CRISTOBAL MD Unavailable Unavailable KIYA, CRISTOBAL MD Unavailable Unavailable KIYA, CRISTOBAL MD Unavailable Unavailable KIYA, CRISTOBAL MD Unavailable Unavailable KIYA, CRISTOBAL MD Unavailable Unavailable KIYA, CRISTOBAL MD Unavailable Unavailable KIYA, CRISTOBAL MD Unavailable Unavailable KIYA, CRISTOBAL MD Unavailable Unavailable KIYA, CRISTOBAL MD Unavailable Unavailable KIYA, CRISTOBAL MD Unavailable Unavailable KIYA, CRISTOBAL MD Unavailable Unavailable KIYA, CRISTOBAL MD Unavailable Unavailable KIYA, CRISTOBAL MD Unavailable Unavailable KIYA, CRISTOBAL MD Unavailable Unavailable KIYA, CRISTOBAL MD Unavailable Unavailable KIYA, CRISTOBAL MD Unavailable Unavailable KIYA, CRISTOBAL MD Unavailable Unavailable Chris Yanez MD Unavailable Unavailable Chris Yanez MD Unavailable Unavailable Chris Yanez MD Unavailable Unavailable Chris Yanez MD Unavailable Unavailable Chris Yanez MD Unavailable Unavailable Chris Yanez MD Unavailable Unavailable Chris Yanez MD Unavailable Unavailable Chris Yanez MD Unavailable Unavailable Chris Yanez MD Unavailable Unavailable Chris Yanez MD Unavailable Unavailable Chris Yanez MD Unavailable Unavailable Yanez, Chris Todd MD Unavailable Unavailable Yanez, Chris Brooks MD Unavailable Unavailable Yanez, Chris Brooks MD Unavailable Unavailable Yanez, Chris Brooks MD Unavailable Unavailable Yanez, Chris Brooks MD Unavailable Unavailable Yanez, Chris Brooks MD Unavailable Unavailable Yanez, Chris Brooks MD Unavailable Unavailable Yanez, Chris Brooks MD Unavailable Unavailable Yanez, Chris Brooks MD Unavailable Unavailable Yanez, Chris Brooks MD Unavailable Unavailable Yanez, Chris Brooks MD Unavailable Unavailable Yanez, Chris Brooks MD Unavailable Unavailable Yanez, Chris Brooks MD Unavailable Unavailable Yanez, Chris Brooks MD Unavailable Unavailable Yanez, Chris Brooks MD Unavailable Unavailable Yanez, Chris Brooks MD Unavailable Unavailable Yanez, Chris Todd MD Unavailable Unavailable Yanez, Chris Brooks MD Unavailable Unavailable Yanez, Chris Todd MD Unavailable Unavailable Yanez, Chris Todd MD Unavailable Unavailable Yanez, Chris Brooks MD Unavailable Unavailable Yanez, Chris Brooks MD Unavailable Unavailable Yanez, Chris Brooks MD Unavailable Unavailable Yanez, Chirs Brooks MD Unavailable Unavailable Yanez, Chris Brooks MD Unavailable Unavailable Yanez, Chris Brooks MD Unavailable Unavailable Yanez, Chris Brooks MD Unavailable Unavailable Yanez, Chris Brooks MD Unavailable Unavailable Yanez, Chris Brooks MD Unavailable Unavailable Yanez, Chris Brooks MD Unavailable Unavailable Yanez, Chris Brooks MD Unavailable Unavailable Yanez, Chris Brooks MD Unavailable Unavailable Yanez, Chris Brooks MD Unavailable Unavailable Ynaez, Chris Brooks MD Unavailable Unavailable Yanez, Chris Brooks MD Unavailable Unavailable Yanez, Chris Brooks MD Unavailable Unavailable Yanez, Chris Brooks MD Unavailable Unavailable Yanez, Chris Brooks MD Unavailable Unavailable Yanez, Chris Brooks MD Unavailable Unavailable Yanez, Chris Brooks MD Unavailable Unavailable Yanez, Chris Brooks MD Unavailable Unavailable Yanez, Chris Brooks MD Unavailable Unavailable Yanez, Chris Brooks MD Unavailable Unavailable Re-disclosure Warning The records that you are about to access may contain information from federally-assisted alcohol or drug abuse programs. If such information is present, then the following federally mandated warning applies: This information has been disclosed to you from records protected by federal confidentiality rules (42 CFR part 2). The federal rules prohibit you from making any further disclosure of this information unless further disclosure is expressly permitted by the written consent of the person to whom it pertains or as otherwise permitted by 42 CFR part 2. A general authorization for the release of medical or other information is NOT sufficient for this purpose. The Federal rules restrict any use of the information to criminally investigate or prosecute any alcohol or drug abuse patient.The records that you are about to access may contain highly sensitive health information, the redisclosure of which is protected by Article 27-F of the [place] State Public Health law. If you continue you may have access to information: Regarding HIV / AIDS; Provided by facilities licensed or operated by the [facility]; or Provided by the [facility] With Developmental Disabilities. If such information is present, then the following [facility] mandated warning applies: This information has been disclosed to you from confidential records which are protected by state law. State law prohibits you from making any further disclosure of this information without the specific written consent of the person to whom it pertains, or as otherwise permitted by law. Any unauthorized further disclosure in violation of state law may result in a fine or retirement sentence or both. A general authorization for the release of medical or other information is NOT sufficient authorization for further disc losure. Allergies and Adverse Reactions Type Description Substance Reaction Status Data Source(s ) Propensity to adverse reactions Penicillin (For Allergies Use On ly) 40463 Hives Active eCW1 ([email or web address] Family History Family Member Name Family Member Gender Family Member Status Date o f Status Description Data Source(s) Unknown Unknown Problem [facility] ([facility]) Unknown Male Problem MEDENT ([facility]) Unknown Male Problem MEDENT ([facility]) Unknown Male Problem MEDENT ([facility] () Encounters Encounter Providers Location Date Indications Data Source(s ) Unknown [address] [facility] [place] [address] 05/28/2021 12:00:00 AM EDT eCW1 ([facility]) Unknown [address] [place] [address] 05/26/2021 12:00:00 AM EDT eCW1 ([facility]) Unknown [address] [facility] [place] [address] 05/22/2021 12:00:00 AM EDT eCW1 ([facility]) Unknown [address] [facility] [place] [address] 05/21/2021 12:00:00 AM EDT eCW1 ([facility]) Outpatient Attender: Todd Moulton/Swapna/Jaciel jorge 05/20/2021 03:00:00 PM EDT MEDENT ([facility]) Unknown [address] [facility] [address] [place] [address] 05/20/2021 12:00:00 AM EDT [facility] [place] [address] [facility] [address] [place] [address] 05/16/2021 12:00:00 AM EDT [facility]CW1 ([facility] [place] [place] [address] [facility] [address] [place] [address] 04/28/2021 12:00:00 AM EDT [facility] [place] [address] [facility] [address] [place] [address] 04/22/2021 12:00:00 AM EDT eCW1 ([email or web address] [place] [address] [facility] [address] [place] [address] 03/31/2021 12:00:00 AM EDT eCW1 ([email or web address] [place] [address] [facility] [address] [place] [address] 03/31/2021 12:00:00 AM EDT eCW1 ([facility]) Outpatient Attender: Shantel TATE Main Office 03/24/2021 10:15:00 AM EDT MEDENT ([facility]) Outpatient Attender: Gilda Damian 03/04 02:45:00 PM EDT MEDENT ([facility] ) Outpatient Attender: Jeffrey Jones MD Main Office 02/25/2021 11:00:00 AM EDT MEDENT ([facility]) Outpatient Attender: Todd Moulton/Swapna/Mohit/Raegan jorge 01/15/2021 11:30:00 AM EDT MEDENT ([facility] Outpatient Attender: Gilda Damian 01/03 02:00:00 PM EDT MEDENT ([facility] ) Outpatient Attender: Gilda Damian 12/25 11:20:00 AM EDT MEDENT ([facility] ) Outpatient Attender: LAVINIA RAMIREZ 12/11/2020 12 :00:00 AM [facility] Outpatient Attender: Todd Moulton/Swapna/Mohit/Raegan eindl 09/10/2020 08:30:00 AM EST MEDENT ([facility] ) Outpatient Attender: Gilda Damian 08/05 01:30:00 PM EST MEDENT ([facility] ) Outpatient Attender: CRISTOBAL HUERTAS MD 07/02/2020 12:00:00 AM [facility] Outpatient Attender: CRISTOBAL HUERTAS MD 06/25/2020 12:00:00 AM E [facility] Outpatient Attender: LAVINIA Richardson r: Gilda Wang DO [id number] 06/05/2020 12:00:00 AM EDT - 06/05/2020 03:13:02 PM [facility] Outpatient Attender: Gilda Damian 06/03 11:00:00 AM EDT MEDENT ([facility] ) Outpatient Attender: Todd Moulton/Swapna/Mohit/Raegan eindl 05/16/2020 11:00:00 AM EDT MEDENT ([facility], ) Outpatient Attender: CRISTOBAL HUERTAS MDReferrer: Gilda Wang DO [id number] 05/02/2020 12:00:00 AM [facility] Outpatient Attender: CRISTOBAL HUERTAS MD 04/30/2020 12:00:00 AM E [facility] Immunizations Vaccine Date Status Description Data Source(s) Shingrix Zoster Vaccine (HZV), Recombinant, Subunit, A djuvanted 01/03/2021 02:42:00 PM EDT completed [facility]) Note that this Td is not adsorbed. 01/03/2021 02:42:00 PM EDT compl eted MEDENT ([facility]) COVID-19 VACCINE Pfizer 10/21/2020 12:00:00 AM EST completed [facility] Vaccine Series Complete: YESThis Data wa s Submitted to [facility] Via [facility]. COVID-19 VACCINE Pfizer 09/30/2020 12:00:00 AM EST completed [facility] Vaccine Series Complete: NOThis Data was Submitted to [facility] Via Cont[employer]. Influenza, injectable, MDCK, preservative free, puma valent 06/03/2020 11:25:00 AM EDT completed [facility] ([facility]) Medications Medication Brand Name Start Date Product Form Dose Route Admi nistrative Instructions Pharmacy Instructions Status Indications Reaction Description Data Source(s) Docusate Sodium 50 MG / sennosides, RETIREMENT 8.6 MG Oral Ta blet EQ Senna-S 8.6-50 MG EQ Senna-S 8.6-50 MG 05/28/2021 12:00:00 AM EDT active EQ Senna-S 8.6-50 MG eCW1 ([facility]) Acetaminophen Extra Strength [facility] 04/22/2021 12:00:00 AM EDT active Acetaminophen Extra Strength eCW1 ([facility] [place]) Acetaminophen Extra Strength [facility] 04/22/2021 12:00:00 AM EDT active Acetaminophen Extra Strength eCW1 ([facility] [place]) Acetaminophen Extra Strength [facility] 04/22/2021 12:00:00 AM EDT active Acetaminophen Extra Strength eCW1 ([facility] [place]) Acetaminophen Extra Strength [facility] 04/22/2021 12:00:00 AM EDT active Acetaminophen Extra Strength eCW1 ([facility] [place]) Acetaminophen Extra Strength [facility] 04/22/2021 12:00:00 AM EDT active Acetaminophen Extra Strength eCW1 ([facility] [place]) Acetaminophen Extra Strength [facility] 04/22/2021 12:00:00 AM EDT active Acetaminophen Extra Strength eCW1 ([facility]) Acetaminophen Extra Strength [facility] 04/22/2021 12:00:00 AM EDT active Acetaminophen Extra Strength eCW1 ([facility]) Acetaminophen Extra Strength [facility] 04/22/2021 12:00:00 AM EDT active Acetaminophen Extra Strength eCW1 ([facility]) Flonase Allergy Relief 50 MCG/ACT Flonase Allergy Relief 50 MCG/ACT 03/31/2021 12:00:00 AM EDT 1.0 {spray_in_each_nostril} acti ve Flonase Allergy Relief 50 MCG/ACT eCW1 ([facility]) Flonase Allergy Relief 50 MCG/ACT Flonase Allergy Relief 50 MCG/ACT 03/31/2021 12:00:00 AM EDT 1.0 {spray_in_each_nostril} acti ve Flonase Allergy Relief 50 MCG/ACT eCW1 ([facility]) Docusate Sodium 100 MG Oral Capsule Docusate Sodium 03/23/2021 1 2:00:00 AM EDT ORAL active MEDENT ( [facility]) Ondansetron 4 MG Oral Tablet [Zofran] Zofran 03/23/2021 12:00:00 AM EDT active MEDENT ([facility]) Prednisone 5 MG Oral Tablet Prednisone 03/23/2021 12:00:00 AM EDT ORAL active MEDENT ([facility]) torsemide 10 MG Oral Tablet Torsemide 03/23/2021 12:00:00 AM EDT ORAL active MEDENT ([facility]) sennosides, RETIREMENT 8.6 MG Oral Capsule Senna 03/23/2021 12:00:00 AM EDT ORAL active MEDENT ([facility]) Sucralfate 1000 MG Oral Tablet [Carafate] Carafate 03/23/2021 1 2:00:00 AM EDT ORAL active MEDENT ([facility]) Calcitriol 0.0005 MG Oral Capsule Calcitriol 03/23/2021 12:00:00 AM E DT ORAL active MEDENT ([facility]) Diclofenac Sodium 0.01 MG/MG Topical Gel [Voltaren] Voltaren 01/27/2021 12:00:00 AM EDT active MEDENT ([facility]) Sucralfate 1000 MG Oral Tablet Sucralfate 01/03/2021 12:00:00 AM EDT ORAL active [facility] Doxycycline Monohydrate 100 MG Oral Tablet Doxycycline Monoh ydrate 12/25/2020 12:00:00 AM EDT ORAL completed MEDENT ([facility]) Covid-19 vaccine, Unspecified 10/21/2020 12:00:00 AM EST completed [facility]) Medication administered onsite Covid-19 vaccine, Unspecified 09/30/2020 12:00:00 AM EST completed [facility]) Medication administered onsite pantoprazole 40 MG Delayed Release Oral Tablet Pantoprazole Sodium 09/16/2020 12:00:00 AM EST ORAL active M EDENT ([facility]) pantoprazole 40 MG Delayed Release Oral Tablet Pantoprazole Sodium 06/20/2020 12:00:00 AM EDT ORAL active M EDENT ([facility]) Administration Of Flu Vaccine 06/03/2020 12:00:00 AM EDT completed [facility] Medication administered onsite Magnesium Hydroxide 80 MG/ML Oral Suspension Milk Of Magnesi a 05/22/2020 12:00:00 AM EDT ORAL active M EDENT ([facility]) Docusate Sodium 50 MG / sennosides, RETIREMENT 8.6 MG Oral Tablet S zheng S 05/22/2020 12:00:00 AM EDT ORAL active M EDENT ([facility]) brinzolamide 10 MG/ML Ophthalmic Suspens ion Brinzolamide 1 % Ophthalmic Suspension (AZOPT) Brinzolamide 1 % Ophthalmic Suspension (AZOPT) 020 12:00:00 AM EDT 1 [drp] Both Eyes active Place 1 drop into both eyes Two Times Daily [facility] pantoprazole 40 MG Delayed Release Oral Tablet Pantoprazole Sodium 40 MG Oral Tablet Delayed Release (PROTONIX) Pantoprazole Sodium 40 MG Oral Tablet De layed Release (PROTONIX) 04/08/2020 12:00:00 AM EDT 40 mg Oral active Take 1 tablet by mouth Two times daily before breakfast and dinner [facility] NITROFURANTOIN, MACROCRYSTALS 100 MG Oral Capsule Nitrofuran toin Macrocrystal 03/26/2020 12:00:00 AM EDT ORAL completed MEDENT ([facility]) Omeprazole 40 MG Delayed Release Oral Capsule Omeprazole 03/05/2020 12:00:00 AM EDT ORAL completed MEDENT ([facility]) Insurance Providers Payer name Policy type / Coverage type Policy ID Covered libertarian ID Covered libertarian's relationship to shook Policy Shook Plan Information [facility] Commercial [id number] Self [id number] [facility] Commercial [id number] S elf Medicare (Part B) Medicare Primary [id number] Self MEDICARE [id number] SP [id number] Medicare Natl Govt Servic Medicare Primary [id number] Self [id number] Medicare Natl Govt Servic Medicare Primary [id number] Self [id number] Medicare Natl Govt Servic Medicare Primary [id number] Self [id number] Medicare (Part B) Medicare Primary [id number] Self [id number] Medicare (Part B) Medicare Primary [id number] Self [id number] Medicare Natl Govt Servic Medicare Primary [id number] Self [id number] Medicare Natl Govt Servic Medicare Primary [id number] [id number] Self [id number] Medicare Natl Govt Servic Medicare Primary [id number] Self [id number] Medicare Natl Govt Servic Medicare Primary [id number] Self [id number] Medicare Natl Govt Servic Medicare Primary [id number] [id number]64.0 Self [id number] Medicare (Part B) Medicare Primary [id number] [id number] Self [id number] Medicare Natl Govt Servic Medicare Primary [id number] 2.840.1.813802.3.227.99.4595.36591.0 Self [id number] Medicare Natl Govt Servic Medicare Primary [id number] 2.840.1.090513.3.227.99.4595.75718.0 Self [id number] Medicare (Part B) Medicare Primary [id number] 2.840.1.577408.3.227.99.572.8688.0 Self 12 [id number] Medicare Natl Govt Servic Medicare Primary [id number] 2.840.1.833[id number] Self [id number] Medicare Natl Govt Servic Medicare Primary [id number] 2.840.1.930067.3.227.99.4595.47480.0 Self [id number] Medicare Natl Govt Servic Medicare Primary [id number] 2.840.1.009269.3.227.99.4595.02369.0 Self [id number] Medicare Natl Govt Servic Medicare Primary [id number] 2.840.1.759703.3.227.99.4595.02626.0 Self [id number] Medicare (Part B) Medicare Primary [id number]9.572.8688.0 Self [id number] Medicare Natl Govt Servic Medicare Primary [id number] 2.16.840.1.892508.3.227.99.4595.12554.0 Self [id number] Medicare (Part B) Medicare Primary [id number] 2.16.840.1.335939.3.227.99.572.8688.0 Self 12 [id number] Medicare Natl Govt Servic Medicare Primary [id number]72.0 Self [id number] Medicare Natl Govt Servic Medicare Primary [id number] 2.16.840.1.179440.3.227.99.4595.35478.0 Self [id number] Medicare (Part B) Medicare Primary [id number] 2.16.840.1.860010.3.227.99.572.8688.0 Self 12 [id number] Medicare (Part B) Medicare Primary [id number] [id number]2.8688.0 Self 12 [id number] Medicare Natl Govt Servic Medicare Primary [id number] 2.16.840.1.080129.3.227.99.4595.26431.0 Self [id number] Medicare Natl Govt Servic Medicare Primary [id number] Self MEDICARE A [id number] Self [id number] J09 AARP U [id number] Self [id number] MEDICARE [id number] SP [id number] A Medicare Natl Govt Servic Medicare Primary [id number] Self [id number] Medicare Natl Govt Servic Medicare Primary [id number] Self [id number] AARP HEALTH CARE OPTIONS [id number] SP [id number] SELF PAY [employer] Health Care Options Medigap Part [id number] .[id number] Self [place] MEDICARE PART B C [id number] S [id number] MEDICARE C [id number] S [id number] AARP O [id number] S [id number] AARP HEALTH CARE OPTIONS -O/P [id number] 18 [id number] MEDICARE PART A -O/P [id number] 18 [id number] PRIVATE PAY BUFFY VEGA 18 BUFFY CONTRERAS Y TOMMY PART B C [id number] S [id number] [facility] Opt Medigap Part B [id number] Self Aarp/ Health Care Options Medigap Part B [id number] Self 0 [id number] [facility] Healthcare Opt Medigap Part B [id number] Self [id number] Medicare - NGS Medicare Primary [id number] Self 1 [id number] Aarp Medigap Part B [id number]. 67448.0 Self [id number] 12 [place] Medicare Primary [id number] Self [id number] MEDICARE [id number] SP [id number] AARP HEALTH CARE OPTIONS [id number] SP [id number] [facility] [id number] SP [id number] [facility] Options Medigap Part B [id number] Self [id number] Aar/ Health Care Options Medigap Part B [id number] Self [id number] Medicare - NGS Medicare Primary [id number] [id number] Self 1 [id number] [facility] ([place]) Health Maintenance Organization (HMO) [id number] [id number] Self [id number] [facility] Medigap Part B [id number]. 94089.0 Self [id number] 12 Medicare [place] Medicare Primary [id number] 2.16.840.1.386985.3.227.99.8646.62359.0 Self [id number] [facility] Medigap Part B [id number] Self [id number] MEDICARE C [id number] S [id number] A Problems, Conditions, and Diagnoses Code Display Name Description Problem Type Effective Dates Data Source(s) M19.90 [id number] Osteoarthritis, unsp ecified osteoarthritis type, unspecified site Problem 05/19/2021 12:00:00 AM EDT eCW1 ([facility]) I82.503 [id number] Chronic deep vein th rombosis (DVT) of both lower extremities, unspecified vein Problem 05/19/2021 12:00:00 AM EDT eCW 1 ([facility]) H40.9 49334984 Glaucoma, unspecified glaucoma t ype, unspecified laterality Problem 05/19/2021 12:00:00 AM EDT eCW1 ([facility]) Z95.0 153811432 Pacemaker Problem 05/19/2021 12:00:00 AM ED T eCW1 ([facility]) H35.30 099410136 Macular degeneration (senile) of retina, unspecified Problem 05/19/2021 12:00:00 AM EDT eCW1 ([facility]) I50.32 803559337 Chronic heart failure with preserved ejec tion fraction Problem 05/19/2021 12:00:00 AM EDT eCW1 ([facility]) I44.1 00990580 Mobitz type 2 second degree heart block P roblem 05/19/2021 12:00:00 AM EDT eCW1 ([facility]) 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 Problem 04/28/20 12:00:00 AM EDT eCW1 ([facility]) M10.9 07829032 Gout, unspecified ca use, unspecified chronicity, unspecified site Problem 04/22/2021 12:00:00 AM EDT eCW1 ([facility]) 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 Problem 03/31/2021 12:00:00 AM EDT eCW1 ([facility]) A49.8 72597365 Pseudomonas aeruginosa infection Problem 03/31/2021 12:00:00 AM EDT eCW1 ([facility]) R09.82 29265421 Postnasal drip Problem 03/31/2021 12:00:00 A M EDT eCW1 ([facility]) J18.9 047517462 Multifocal pneumonia Problem 03/31/2021 12:0 0:00 AM EDT eCW1 ([facility]) J44.9 45040350 Chronic obstructive pulmonary di sease, unspecified COPD type Problem 03/31/2021 12:00:00 AM EDT eCW1 ([facility]) [id number] Gastroesophageal reflux disease Gastroesophageal reflux disease Problem 02/25/2021 12:00:00 AM EDT MEDENT [facility] Surgeries/Procedures Procedure Description Date Indications Data Source(s) OFFICE OUTPATIENT VISIT 25 MINUTES 05/20/2021 12:00:00 AM EDT MEDMAGDALENA ([facility], ) ECG ROUTINE ECG W/LEAST 12 LDS W/I&R 03/24/2021 12:00: 00 AM EDT MEDENT ([facility]) INTERROGATION EVAL IN PERSON 1/DUAL/CARPET MEASURER LEAD PM 2020 12:00:00 AM EDT MEDENT ([facility]) OFFICE OUTPATIENT VISIT 25 MINUTES 03/24/2021 12:00:00 AM EDT MEDENT ([facility]) OFFICE OUTPATIENT VISIT 25 MINUTES 03/04/2021 12:00:00 AM EDT MEDENT ([facility]) OFFICE OUTPATIENT NEW 30 MINUTES 02/25/2021 12:00:00 A M EDT MEDMAGDALENA ([facility]) OFFICE OUTPATIENT VISIT 25 MINUTES 01/15/2021 12:00:00 AM EDT MEDMAGDALENA ([facility], ) Chronic Care MGMT 20 Mins Clinical Staff Time Per Calendar [facility] 01/06/2021 12:00:00 AM EDT MEDMAGDALENA ([facility] ) OFFICE OUTPATIENT VISIT 25 MINUTES 01/03/2021 12:00:00 AM EDT MEDMAGDALENA ([facility]) Chronic Care Management Services Ea Addl 20 Min 2020 12:00:00 AM EDT MEDMAGDALENA ([facility]) Chronic Care MGMT 20 Mins Clinical Staff Time Per Calendar [facility] 01/01/2021 12:00:00 AM EDT MEDENT ([facility] ) OFFICE OUTPATIENT VISIT 25 MINUTES 12/25/2020 12:00:00 AM EDT MEDMAGDALENA ([facility]) INTERROGATION EVAL REMOTE </90 D 1/2/CARPET MEASURER LEAD PM 12/20 12:00:00 AM EDT MEDENT ([facility]) INTERROGATION REMOTE </90 D PROJECT MANAGEMENT DIRECTOR REVIEW 12/21/19 12:00:00 AM EDT MEDENT ([facility]) Chronic Care MGMT 20 Mins Clinical Staff Time Per Calendar [facility] 11/06/2020 12:00:00 AM EST MEDENT ([facility] ) Chronic Care MGMT 20 Mins Clinical Staff Time Per Calendar M on[facility] 09/30/2020 12:00:00 AM EST MEDMAGDALENA ([facility] ) Diabetic Retinal Eye Exam 08/08/2020 12:00:00 AM EST MEDENT ([facility]) INTERROGATION EVAL REMOTE </90 D 1/2/CARPET MEASURER LEAD PM 06/19 12:00:00 AM EDT MEDENT ([facility]) INTERROGATION REMOTE </90 D PROJECT MANAGEMENT DIRECTOR REVIEW 06/19/20 12:00:00 AM EDT MEDENT ([facility]) Results ID Date Data Source AFB SMEAR & CULTURE 04/28/2021 12:00:00 AM EDT eCW1 ([facility]) Name Value Range Interpretation Code Description Data Joan rce(s) Supporting Document(s) AFB SMEAR & CULTURE eCW1 ([facility]) ID Date Data Source [id number] 03/20/2021 04:49:00 PM EDT [facility] Name Value Range Interpretation Code Description Data Joan rce(s) Supporting Document(s) SARS coronavirus 2 RNA [Presence] in Res piratory specimen by EFRA with probe detection NEGATIVE [facility] This lab was ordered by [facility] a nd reported by [facility]. ID Date Data Source [id number] 03/13/2021 07:53:00 PM EDT [facility] Name Value Range Interpretation Code Description Data Joan rce(s) Supporting Document(s) SARS-CoV-2 (COVID 19) NEGATIVE - SARS-CoV-2 (COVID19) [facility] This lab was ordered by [facility] a nd reported by [facility]. ID Date Data Source [id number] 03/11/2021 11:01:00 AM EDT [facility] Name Value Range Interpretation Code Description Data Joan rce(s) Supporting Document(s) SARS coronavirus 2 RNA [Presence] in Res piratory specimen by EFRA with probe detection NEGATIVE [facility] This lab was ordered by [facility] a nd reported by [facility]. ID Date Data Source [id number] 03/07/2021 01:25:00 PM EDT [facility] Name Value Range Interpretation Code Description Data Joan rce(s) Supporting Document(s) SARS-CoV-2 (COVID 19) NEGATIVE - SARS-CoV-2 (COVID19) [facility] This lab was ordered by [facility] a nd reported by [facility]. ID Date Data Source [id number] 03/07/2021 01:22:00 PM EDT MEDENT ([facility]) Name Value Range Interpretation Code Description Data Joan rce(s) Supporting Document(s) Laboratory test finding (navigational concept) 7.331 units 7.350-7.45 0 MEDENT ([facility]) Laboratory test finding (navigational concept) 37.3 MMHG 35.0-45.0 MEDENT ([facility]) Laboratory test finding (navigational concept) 21.0 mmol/L 23.0-27.0 MEDENT ([facility]) Laboratory test finding (navigational concept) 104.0 MMHG 80-105 MEDENT ([facility]) Laboratory test finding (navigational concept) 19.7 mmol/L 22.0-26.0 MEDENT ([facility]) Laboratory test finding (navigational concept) -6.0 mmol/L MEDENT ([facility]) Laboratory test finding (navigational concept) 98 % 95-98 MEDENT ([facility]) ID Date Data Source [id number] 03/04/2021 02:54:00 PM EDT MEDENT ([facility]) Name Value Range Interpretation Code Description Data Joan rce(s) Supporting Document(s) Erythrocytes [#/volume] in Blood by Automated count 3.45 x10*6/UL 4.2 0-6.30 MEDENT ([facility]) Leukocytes [#/volume] in Blood by Automated count 8.8 x10*3/UL 4.1-10 .9 MEDENT ([facility]) Hemoglobin [Mass/volume] in Blood 10.7 g/dL 12.0-18.0 MEDENT ([facility]) NOTE: RESULT VERIFIED. Hematocrit [Volume Fraction] of Blood by Automated count 32.4 % 3 7.0-51.0 MEDENT ([facility]) MCV 93.9 fL 80.0-97.0 [facility] MCH 31.0 pg 26.0-32.0 [facility]) Erythrocyte distribution width [Ratio] by Automated count 14.4 % 11.6-13.7 MEDENT ([facility]) MCHC 33.0 g/dL 31.0-38.0 [facility]) MPV 7.0 FL 7.8-11.0 [facility]) Platelets [#/volume] in Blood by Automated count 268 x10*3/UL 140-440 MEDENT ([facility]) Mid % 6.8 % 1.7-9.3 [facility] Lymph % 24.9 % 10.0-58.5 [facility] Lymph # 2.2 x10*3/UL 0.6-4.1 MEDENT ([facility]) Mid # 0.6 x10*3/UL 0.1-0.6 MEDENT ([facility]) Neut % 68.3 % 37.0-92.0 [facility]) Neut # 6.0 x10*3/UL 2.0-7.8 MEDENT ([facility]) ID Date Data Source [id number] 03/04/2021 02:54:00 PM EDT MEDENT ([facility]) Name Value Range Interpretation Code Description Data Joan rce(s) Supporting Document(s) Glucose [Mass/volume] in Serum or Plasma 118 mg/dL 74-99 MEDENT ([facility]) 100-125 mg/dL PRE-DIABETES/FASTING >126 mg/dL DIABETES/FASTING Creatinine 1.5 mg/dL 0.6-1.3 MEDENT ([facility]) Urea nitrogen [Mass/volume] in Serum or Plasma 25 mg/dL 7-18 MEDENT ([facility]) Sodium [Moles/volume] in Serum or Plasma 139 meq/L 136-145 MEDENT ([facility]) Chloride [Moles/volume] in Serum or Plasma 103 meq/L 98-107 MEDENT ([facility]) Potassium [Moles/volume] in Serum or Plasma 4.5 meq/L 3.5-5.1 MEDENT ([facility]) Calcium [Mass/volume] in Serum or Plasma 9.8 mg/dL 8.5-10.1 MEDENT ([facility]) Carbon dioxide, total [Moles/volume] in Serum or Plasma 28 meq/L 21 -32 MEDENT ([facility]) Total Bilirubin 0.3 mg/dL 0.2-1.0 MEDENT ([facility]) Alkaline phosphatase isoenzyme [Units/volume] in Serum or Pl asma 90 mg/dL 46-116 MEDENT ([facility]) Alanine aminotransferase [Enzymatic activity/volume] in Seru m or Plasma 12 U/L 12-78 MEDENT ([facility]) Aspartate aminotransferase [Enzymatic activity/volume] in Serum or Plasma 10 U/L 15-37 MEDENT ([facility] ) A/G Ratio 0.82 CALC 1.00-1.90 [facility]) Proteinase 3 Ab [Units/volume] in Serum 6.9 g/dL 6.4-8.2 MEDENT ([facility]) Albumin [Mass/volume] in Serum or Plasma 3.1 g/dL 3.4-5.0 MEDENT ([facility]) Glomerular filtration rate/1.73 sq M pre dicted among non-blacks [Volume Rate/Area] in Serum or Plasma by Creatinine-based formula (MDRD) 33 mL/min MEDENT ([facility]) Glomerular filtration rate/1.73 sq M pre dicted among blacks [Volume Rate/Area] in Serum or Plasma by Creatinine-based formula (MDRD) 40 mL/min MEDENT ([facility]) <content>CHRONIC KIDNEY DISEASE STAGING PER NKF</content>
<content></content>
<content>STAGE I & II GFR >= 60 NORMAL TO MILDLY DECREASED</content>
<content>STAGE III GFR 30-59 MODERATELY DECREASED</content>
<content>STAGE IV GFR 15-29 SEVERELY DECREASED</content>
<content>STAGE V GFR <15 VERY LITTLE GFR LEFT</content>
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
<content></content> ID Date Data Source [id number] 02/17/2021 11:11:00 AM EDT MEDENT ([facility] Name Value Range Interpretation Code Description Data Joan rce(s) Supporting Document(s) Magnesium Level 1.6 1.8-2.4 MEDENT ([facility]) ID Date Data Source [id number] 02/17/2021 11:11:00 AM EDT MEDENT ([facility] Name Value Range Interpretation Code Description Data Joan rce(s) Supporting Document(s) Alanine aminotransferase [Enzymatic activity/volume] in Serum or Pl asma 18 MEDENT ([facility]) Albumin [Mass/volume] in Serum or Plasma 2.5 MEDENT ([facility]) Calcium [Mass/volume] in Serum or Plasma 8.8 MEDENT ([facility]) Carbon dioxide, total [Moles/volume] in Serum or Plasma 16 MEDENT ([facility]) Potassium [Moles/volume] in Serum or Plasma 3.6 MEDENT ([facility]) Alkaline phosphatase [Enzymatic activity/volume] in Serum or Plasma 7 3 MEDENT ([facility]) Chloride [Moles/volume] in Serum or Plasma 117 MEDENT ([facility]) Protein [Mass/volume] in Serum or Plasma 5.0 MEDENT ([facility]) Sodium 144 MEDENT ([facility] Aspartate aminotransferase [Enzymatic activity/volume] in Serum or Plasma 12 MEDENT ([facility]) Urea nitrogen [Mass/volume] in Serum or Plasma 35 MEDENT ([facility]) Glucose 95 83-110 MEDENT ([facility] Creatinine For GFR 1.36 MEDENT ([facility]) ID Date Data Source [id number] 02/17/2021 11:11:00 AM EDT MEDENT ([facility] Name Value Range Interpretation Code Description Data Joan rce(s) Supporting Document(s) Red Blood Count 2.82 4.00-5.40 MEDENT ([facility]) White Blood Count 12.8 5.0-10.0 MEDENT ([facility]) Platelets 257 172-450 [facility] Hemoglobin 8.6 MEDENT ([facility]) Hematocrit 27.4 MEDENT ([facility]) ID Date Data Source [id number] 02/17/2021 08:07:00 AM EDT [facility] Name Value Range Interpretation Code Description Data Joan rce(s) Supporting Document(s) SARS coronavirus 2 RNA [Presence] in Res piratory specimen by EFRA with probe detection NEGATIVE [facility] This lab was ordered by [facility] a nd reported by [facility]. ID Date Data Source [id number] 02/15/2021 11:40:00 AM EDT [facility] Name Value Range Interpretation Code Description Data Joan rce(s) Supporting Document(s) SARS-CoV-2 (COVID 19) NEGATIVE - SARS-CoV-2 (COVID19) [facility] was ordered by [facility] a nd reported by [facility]. ID Date Data Source [id number] 02/13/2021 10:50:00 AM EDT [facility] ([facility]) Name Value Range Interpretation Code Description Data Joan rce(s) Supporting Document(s) Lactate [Mass/volume] in Serum or Plasma 1.3 mmol/L 0.4-2.0 [facility] ([facility]) Y/N query for Sepsis Lactate Rule: Y ID Date Data Source [id number] 02/13/2021 10:49:00 AM EDT [facility] ([facility]) Name Value Range Interpretation Code Description Data Joan rce(s) Supporting Document(s) Influenza A Amplification Laboratory test result [facility] ([facility]) Negative results do not preclude influen za or RSV virus infection and should not be used as the sole basis for treatment or other patient management decisions. Influenza B Amplification Laboratory test result [facility] ([facility]) Negative results do not preclude influen za or RSV virus infection and should not be used as the sole basis for treatment or other patient management decisions. RSV Amplification Laboratory test result [facility] ([facility]) Negative results do not preclude influen za or RSV virus infection and should not be used as the sole basis for treatment or other patient management decisions. Laboratory test finding (navigational concept) Laboratory test result [facility] ([facility]) A false negative result may occur if a s pecimen is improperly collected, transported or handled. False negative results may also occur if inadequate numbers of organisms are present in the specimen. As with any molecular test, mutations within the target regions of Xpert Xpress SARS-CoV-2 could affect primer and/or probe binding resulting in failure to detect the presence of virus. This test cannot rule out diseases caused by other bacterial or viral pathogens. DISCLAIMER: Testing was performed using the [employer] SARS-CoV-2 test. This test was developed and its performance characteristics determined by [employer]. This test has not been FDA cleared or approved. This test has been authorized by FDA under an Emergency Use Authorization (EUA). This test is only authorized for the duration of time the declaration that circumstances exist justifying the authorization of the emergency use of in vitro diagnostic tests for detection of SARS-CoV-2 virus and/or diagnosis of COVID-19 infection under section 564(b)(1) of the Act, 21 U.S.C. 360bbb-3(b)(1), unless the authorization is terminated or revoked sooner. ID Date Data Source [id number] 02/13/2021 10:49:[address] [facility] Name Value Range Interpretation Code Description Data Joan rce(s) Supporting Document(s) SARS coronavirus 2 RNA [Presence] in Res piratory specimen by EFRA with probe detection NEGATIVE [facility] This lab was ordered by [facility] a nd reported by [facility]. ID Date Data Source [id number] 02/13/2021 09:28:00 AM EDT [facility] Name Value Range Interpretation Code Description Data Joan rce(s) Supporting Document(s) Laboratory test finding (navigational concept) 34.0 % 38.0-51.0 [facility] ([facility]) Laboratory test finding (navigational concept) 146 mg/dL 70-105 [facility] ([facility]) Laboratory test finding (navigational concept) 140 meq/L 136-145 [facility] ([facility]) Laboratory test finding (navigational concept) 4.1 meq/L 3.5-5.1 [facility] ([facility]) Laboratory test finding (navigational concept) 5.5 mg/dL 4.5-5.3 [facility] ([facility]) Laboratory test finding (navigational concept) 113 meq/L 98-109 [facility] ([facility]) Laboratory test finding (navigational concept) 19.0 MM/L 23.0-27.0 [facility] ([facility]) Laboratory test finding (navigational concept) 37 mg/dL 8-26 [facility] ([facility]) Laboratory test finding (navigational concept) 1.6 mg/dL 0.6-1.3 [facility] ([facility]) ID Date Data Source [id number] 02/13/2021 09:20:00 AM EDT [facility] ([facility]) Name Value Range Interpretation Code Description Data Joan rce(s) Supporting Document(s) Lipoprotein lipase [Enzymatic activity/volume] in Serum or Plasm a 45 U/L 73-393 [facility] ([facility]) ID Date Data Source [id number] 02/13/2021 09:20:00 AM EDT [facility] ([facility]) Name Value Range Interpretation Code Description Data Joan rce(s) Supporting Document(s) Ast/Sgot 8 U/L 7-37 [facility] Alt/SGPT 11 U/L 12-78 [facility] [facility]) Bilirubin,Total 0.4 mg/dL 0.2-1.0 [facility] ([facility]) Alkaline Phosphatase 100 U/L 45-117 [facility] ([facility]) Total Protein 5.8 GM/DL 6.4-8.2 [facility] ([facility]) Bilirubin,Direct 0.1 mg/dL 0.0-0.2 [facility] ([facility]) Albumin 2.8 GM/DL 3.2-5.2 [facility] [facility]) Albumin/Globulin Ratio 0.9 1.2-2.2 [facility] ([facility]) ID Date Data Source [id number] 02/13/2021 09:20:00 AM EDT [facility] Name Value Range Interpretation Code Description Data Joan rce(s) Supporting Document(s) CPK Creatine Phosphokinase 50 U/L 26-192 [facility] ([facility]) MB/CK Relative Index 2.00 [facility] ([facility]) <content>DIAGNOSIS CRITERIA</content>
<content>MMB ng/ml Relative Index (RI)</content>
<content>NON-AMI < or = 5 N/A</content>
<content>OVALLES ZONE > 5 < or = 4</content>
<content>AMI > 5 > 4</content>
<content></content> CK-MB Value Mass Laboratory test result [facility] ([facility]) Troponin I Laboratory test [facility] <content>Troponin I Reference Interval f or Siemens [place] LOCI:</content>
<content></content>
<content>99th Percentile= 0.00-0.045 ng/ml</content>
<content></content>
<content>Risk Stratification:</content>
<content><= 0.10 ng/ml Decreased Risk for Adverse Clinical</content>
<content>Events.</content>
<content>0.10-1.50 ng/ml Increased Risk for Adverse Clinical</content>
<content>Events. Evaluation of additional</content>
<content>criterion and/or repeat testing in 2-6</content>
<content>hours is suggested to rule out myocardial</content>
<content>damage.</content>
<content>>= 1.50 ng/ml Indicative of Myocardial Injury.</content>
<content></content> ID Date Data Source [id number] 02/13/2021 09:20:00 AM EDT [facility] Name Value Range Interpretation Code Description Data Joan rce(s) Supporting Document(s) Prothrombin Time 17.9 s 12.5-14.3 [facility] ([facility]) Inr 1.44 [facility] ([place]) THERAPUTIC HUMAN INR VALUES INDICATIONS NORMAL RANGES PROPHYLAXIS/TREATMENT OF: VENOUS THROMBOSIS 2.0-3.0 PULMONARY EMBOLISM 2.0-3.0 PREVENTION OF SYSTEMIC EMBOLISM FROM: TISSUE HEART VALVES 2.0-3.0 ACUTE MYOCARDIAL INFARCTION 2.0-3.0 VALVULAR HEART DISEASE 2.0-3.0 ATRIAL FIBRILLATION 2.0-3.0 MECHANICAL VALVES(HIGH RISK) 2.5-3.5 RECURRENT MYOCARDIAL INFARCTION 2.5-3.5 ID Date Data Source [id number] 02/13/2021 09:20:00 AM EDT [facility] ([facility]) Name Value Range Interpretation Code Description Data Joan rce(s) Supporting Document(s) White Blood Count 15.5 10 4.0-10.0 [facility] ([facility]) Red Blood Count 3.55 10 4.00-5.40 [facility] ([facility]) Hemoglobin 11.2 g/dL 12.0-15.5 [facility] ([facility]) Hematocrit 35.5 % 36.0-47.0 [facility] ([facility]) Mean Corpuscular Volume 100.0 fl 80.0-96.0 [facility] ([facility]) Mean Corpuscular HGB Conc 31.5 g/dL 32.0-36.5 [facility] NT ([facility]) Mean Corpuscular Hemoglobin 31.5 pg 27.0-33.0 [facility] ([facility]) Red Cell Distribution Width 13.2 % 11.5-14.5 [facility] ([facility]) Platelet Count, Automated 240 10 150-450 [facility] ([facility]) Lymph % 5.5 % 24.0-44.0 [facility] [facility]) Neutrophils % 86.1 % 36.0-66.0 [facility] ([facility]) [place] % 7.5 % 2.0-8.0 [facility] [facility]) Baso % 0.1 % 0.0-1.0 [facility] Eos % 0.3 % 0.0-3.0 [facility] [facility] Immature Granulocyte % 0.5 % 0-3.0 [facility] ([facility]) Nucleated Red Blood Cell % 0.0 % 0-0 [facility] ([facility]) Neutrophils # 13.3 10 1.5-8.5 [facility] ([facility]) Lymph # 0.9 10 1.5-5.0 [facility] Eos # 0.0 10 0.0-0.5 [facility] [facility] [place] # 1.2 10 0.0-0.8 [facility] ([place] [facility]) Baso # 0.0 10 0.0-0.2 [facility]) ID Date Data Source [id number] 02/10/2021 12:00:00 AM EDT [facility] Name Value Range Interpretation Code Description Data Joan rce(s) Supporting Document(s) SARS-CoV2 Rapid Antigen Negative [facility] This lab was ordered by [facility] and reported by [facility]. ID Date Data Source [id number] 01/03/2021 01:26:00 PM EDT [facility] ([facility]) Name Value Range Interpretation Code Description Data Joan rce(s) Supporting Document(s) Ferritin [Mass/volume] in Serum or Plasma 199 ng/mL 8-252 [facility] ([facility]) ID Date Data Source [id number] 01/03/2021 01:26:00 PM EDT [facility] ([facility]) Name Value Range Interpretation Code Description Data Joan rce(s) Supporting Document(s) Total Iron Binding Capacity 262 ug/dL 250-450 [facility] ([facility]) Iron (Fe) 61 ug/dL 50-170 [facility] [facility]) Percent Saturation 23.3 % 13.2-45.0 [facility] ([facility]) ID Date Data Source [id number] 01/03/2021 01:24:00 PM EDT [facility] ([facility]) Name Value Range Interpretation Code Description Data Joan rce(s) Supporting Document(s) Erythrocytes [#/volume] in Blood by Automated count 3.78 x10*6/UL 4.2 0-6.30 [facility] ([facility]) Leukocytes [#/volume] in Blood by Automated count 10.5 x10*3/UL 4.1-1 0.9 [facility] ([facility]) Hemoglobin [Mass/volume] in Blood 12.5 g/dL 12.0-18.0 [facility] Hematocrit [Volume Fraction] of Blood by Automated count 36.6 % 3 7.0-51.0 [facility] ([facility]) MCH 33.0 pg 26.0-32.0 [facility] ([place] [facility]) MCV 96.9 fL 80.0-97.0 [facility] ([facility]) MCHC 34.0 g/dL 31.0-38.0 [facility] ([facility]) Erythrocyte distribution width [Ratio] by Automated count 13.5 % 11.6-13.7 [facility] ([facility]) Platelets [#/volume] in Blood by Automated count 338 x10*3/UL 140-440 [facility] ([facility]) MPV 7.7 FL 7.8-11.0 [facility] ([place] [facility]) Mid % 4.6 % 1.7-9.3 [facility] [facility]) Lymph % 17.8 % 10.0-58.5 [facility] [facility]) Neut % 77.6 % 37.0-92.0 [facility] Lymph # 1.8 x10*3/UL 0.6-4.1 [facility] ([facility]) Mid # 0.6 x10*3/UL 0.1-0.6 [facility] ([facility]) Neut # 8.1 x10*3/UL 2.0-7.8 [facility] ([facility]) ID Date Data Source [id number] 01/03/2021 01:24:00 PM EDT [facility] ([facility]) Name Value Range Interpretation Code Description Data Joan rce(s) Supporting Document(s) Hemoglobin A1c/Hemoglobin.total in Blood 6.6 % [facility] Lab Result Notes: Pre-Diabetes 5.7 - 6.4 % Diabetes = or > 6.5% Glucose mean value [Mass/volume] in Blood Estimated fr om glycated hemoglobin 143 mg/dL 60-110 [facility] ) ID Date Data Source [id number] 01/03/2021 01:24:00 PM EDT [facility] ([facility]) Name Value Range Interpretation Code Description Data Joan rce(s) Supporting Document(s) Urea nitrogen [Mass/volume] in Serum or Plasma 48 mg/dL 7-18 [facility] ([facility]) Glucose [Mass/volume] in Serum or Plasma 144 mg/dL 74-99 [facility] ([facility]) 100-125 mg/dL PRE-DIABETES/FASTING >126 mg/dL DIABETES/FASTING Sodium [Moles/volume] in Serum or Plasma 140 meq/L 136-145 [facility] ([facility]) Creatinine 1.4 mg/dL 0.6-1.3 [facility] Chloride [Moles/volume] in Serum or Plasma 108 meq/L 98-107 [facility] ([facility]) Potassium [Moles/volume] in Serum or Plasma 3.8 meq/L 3.5-5.1 [facility] ([facility]) Carbon dioxide, total [Moles/volume] in Serum or Plasma 20 meq/L 21 -32 [facility] ([facility]) Calcium [Mass/volume] in Serum or Plasma 9.3 mg/dL 8.5-10.1 [facility] ([facility]) Alkaline phosphatase isoenzyme [Units/volume] in Serum or Pl asma 124 mg/dL 46-116 [facility] ([facility]) Total Bilirubin 0.3 mg/dL 0.2-1.0 [facility] ([facility]) Aspartate aminotransferase [Enzymatic activity/volume] in Se rum or Plasma 8 U/L 15-37 [facility] ([facility]) Albumin [Mass/volume] in Serum or Plasma 3.2 g/dL 3.4-5.0 [facility] ([facility]) Alanine aminotransferase [Enzymatic activity/volume] in Seru m or Plasma 16 U/L 12-78 [facility] ([facility]) Proteinase 3 Ab [Units/volume] in Serum 7.0 g/dL 6.4-8.2 [facility] ([facility]) A/G Ratio 0.84 CALC 1.00-1.90 [facility] Glomerular filtration rate/1.73 sq M pre dicted among non-blacks [Volume Rate/Area] in Serum or Plasma by Creatinine-based formula (MDRD) 36 mL/min [facility] ([facility]) Glomerular filtration rate/1.73 sq M pre dicted among blacks [Volume Rate/Area] in Serum or Plasma by Creatinine-based formula (MDRD) 44 mL/min [facility] ([facility]) <content>CHRONIC KIDNEY DISEASE STAGING PER NKF</content>
<content></content>
<content>STAGE I & II GFR >= 60 NORMAL TO MILDLY DECREASED</content>
<content>STAGE III GFR 30-59 MODERATELY DECREASED</content>
<content>STAGE IV GFR 15-29 SEVERELY DECREASED</content>
<content>STAGE V GFR <15 VERY LITTLE GFR LEFT</content>
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
<content></content> ID Date Data Source [id number] 12/25/2020 11:28:00 AM EDT [facility] ([facility]) Name Value Range Interpretation Code Description Data Joan rce(s) Supporting Document(s) Urea nitrogen [Mass/volume] in Serum or Plasma 33 mg/dL 7-18 [facility] ([facility]) Glucose [Mass/volume] in Serum or Plasma 116 mg/dL 74-99 [facility] ([facility]) 100-125 mg/dL PRE-DIABETES/FASTING >126 mg/dL DIABETES/FASTING Creatinine 1.5 mg/dL 0.6-1.3 [facility] Sodium [Moles/volume] in Serum or Plasma 141 meq/L 136-145 [facility] ([facility]) Potassium [Moles/volume] in Serum or Plasma 4.9 meq/L 3.5-5.1 [facility] ([facility]) Carbon dioxide, total [Moles/volume] in Serum or Plasma 23 meq/L 21 -32 [facility] ([facility]) Chloride [Moles/volume] in Serum or Plasma 108 meq/L 98-107 [facility] ([facility]) Calcium [Mass/volume] in Serum or Plasma 9.2 mg/dL 8.5-10.1 [facility] ([facility]) Glomerular filtration rate/1.73 sq M pre dicted among blacks [Volume Rate/Area] in Serum or Plasma by Creatinine-based formula (MDRD) 40 mL/min [facility] <content>CHRONIC KIDNEY DISEASE STAGING PER NKF</content>
<content></content>
<content>STAGE I & II GFR >= 60 NORMAL TO MILDLY DECREASED</content>
<content>STAGE III GFR 30-59 MODERATELY DECREASED</content>
<content>STAGE IV GFR 15-29 SEVERELY DECREASED</content>
<content>STAGE V GFR <15 VERY LITTLE GFR LEFT</content>
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
<content></content> Glomerular filtration rate/1.73 sq M pre dicted among non-blacks [Volume Rate/Area] in Serum or Plasma by Creatinine-based formula (MDRD) 33 mL/min [facility] ID Date Data Source [id number] 12/25/2020 11:28:00 AM EDT [facility] Name Value Range Interpretation Code Description Data Joan rce(s) Supporting Document(s) Leukocytes [#/volume] in Blood by Automated count 8.6 x10*3/UL 4.1-10 .9 [facility] Hemoglobin [Mass/volume] in Blood 12.2 g/dL 12.0-18.0 [facility] ([facility]) Erythrocytes [#/volume] in Blood by Automated count 3.73 x10*6/UL 4.2 0-6.30 [facility] ([facility]) Hematocrit [Volume Fraction] of Blood by Automated count 35.9 % 3 7.0-51.0 [facility] ([facility]) MCV 96.2 fL 80.0-97.0 [facility] ([place] [facility]) MCH 32.6 pg 26.0-32.0 [facility] ([facility]) Erythrocyte distribution width [Ratio] by Automated count 13.4 % 11.6-13.7 [facility] ([facility]) MCHC 33.9 g/dL 31.0-38.0 [facility] ([facility]) Platelets [#/volume] in Blood by Automated count 362 x10*3/UL 140-440 [facility] ([facility]) MPV 7.5 FL 7.8-11.0 [facility] [facility]) Neut % 70.5 % 37.0-92.0 [facility] ([place] [facility]) Mid % 5.5 % 1.7-9.3 [facility] [facility] Lymph % 24.0 % 10.0-58.5 [facility] ([facility]) Lymph # 2.0 x10*3/UL 0.6-4.1 [facility] ([facility]) Mid # 0.6 x10*3/UL 0.1-0.6 [facility] ([facility]) Neut # 6.0 x10*3/UL 2.0-7.8 [facility] ([facility]) ID Date Data Source [id number] 11/30/2020 12:58:00 PM EDT [facility] ([facility]) Name Value Range Interpretation Code Description Data Joan rce(s) Supporting Document(s) Color, Urine Laboratory test result [facility] ([facility]) Appearance, Urine Laboratory test result [facility] ([facility]) PH,Urine 5.0 units 5.0-9.0 [facility]) Specific [place] Urine Auto 1.012 1.002-1.035 [facility] Glucose, Urine (Ua) Auto Laboratory test result [facility] ([facility]) Protein, Urine Auto Laboratory test result [facility] ([facility]) Ketone, Urine Auto Laboratory test result [facility] Urobilinogen, Urine Auto 0.2 mg/dL 0.0-2.0 [facility] ([facility]) Bilirubin, Urine Auto Laboratory test result [facility] ([facility]) Nitrite, Urine Auto Laboratory test result [facility] ([facility]) Leukocyte Esterase, Urine Auto Laboratory test result [facility] ([facility]) Blood, Urine Blood Laboratory test result [facility] ([facility]) WBC, Urine Auto Laboratory test result 0-3 M EDENT ([facility]) RBC, Urine Auto 4 /HPF 0-3 [facility] ([facility] Bacteria, Urine Auto Laboratory test result [facility] ([facility]) Squamous Epithelial Cell Ur AU 16 /HPF 0-6 [facility] Hyaline Cast, Urine Auto 0 /LPF 0-1 [facility] T ([facility] Mucus, Urine Laboratory test result [facility] ([facility]) ID Date Data Source [id number] 11/30/2020 10:59:00 AM EDT [facility] ([facility] Name Value Range Interpretation Code Description Data Joan rce(s) Supporting Document(s) Parathyrin.intact [Mass/volume] in Serum or Plasma 50.3 pg/mL 18.5-88 .0 [facility] Urate [Mass/volume] in Serum or Plasma 5.8 mg/dL 2.6-6.0 [facility] ([facility] ID Date Data Source [id number] 11/30/2020 10:59:00 AM EDT [facility] ([facility] Name Value Range Interpretation Code Description Data Joan rce(s) Supporting Document(s) Blood Urea Nitrogen 43 mg/dL 7-18 [facility] ([facility] Glucose, Fasting 132 mg/dL 70-100 [facility] ([facility]) Creatinine For GFR 1.49 mg/dL 0.55-1.30 [facility] ([facility]) Glomerular Filtration Rate 35.6 [facility] ([facility]) <content>Units are mL/min/1.73 m2</content>
<content></content>
<content>Chronic Kidney Disease Staging per NKF:</content>
<content></content>
<content>Stage I & II GFR >=60 Normal to Mildly Decreased</content>
<content>Stage III GFR 30- 59 Moderately Decreased</content>
<content>Stage IV GFR 15-29 Severely Decreased</content>
<content>Stage V GFR <15 Very Little GFR Left</content>
<content>ESRD GFR <15 on REMOTE BROADCAST ENGINEER</content>
<content></content> Chloride Level 115 meq/L 98-107 [facility] ([facility]) Potassium Serum 4.4 meq/L 3.5-5.1 [facility] ([facility]) Sodium Level 142 meq/L 136-145 [facility] ([facility]) Anion Gap 6 meq/L 8-16 [facility] ([place] [facility]) Carbon Dioxide Level 21 meq/L 21-32 [facility] ([facility]) Phosphorus Level 3.2 mg/dL 2.5-4.9 [facility] ([facility]) Calcium Level 8.9 mg/dL 8.8-10.2 [facility] ([facility]) Albumin 3.3 GM/DL 3.2-5.2 [facility] ([place] [facility]) ID Date Data Source [id number] 11/30/2020 10:59:00 AM EDT [facility] ([facility]) Name Value Range Interpretation Code Description Data Joan rce(s) Supporting Document(s) Hemoglobin 11.9 g/dL 12.0-15.5 [facility] ([place] [facility]) White Blood Count 9.4 10 4.0-10.0 [facility] ([facility]) --- 12/02/20 1339 --- WBC previously reported as: 9.4 10^3/uL --- 12/02/20 1340 --- WBC previously reported as: 10^3/uL --- 12/02/20 1339 --- WBC previously reported as: 9.4 10^3/uL Red Blood Count 3.60 10 4.00-5.40 [facility] ([facility]) Mean Corpuscular Volume 102.5 fl 80.0-96.0 [facility] ([facility]) Hematocrit 36.9 % 36.0-47.0 [facility]) Mean Corpuscular Hemoglobin 33.1 pg 27.0-33.0 [facility] ([facility]) Mean Corpuscular HGB Conc 32.2 g/dL 32.0-36.5 [facility] ([facility]) Platelet Count, Automated 246 10 150-450 [facility] ([facility]) Red Cell Distribution Width 13.8 % 11.5-14.5 [facility] ([facility]) [place] % 7.8 % 2.0-8.0 [facility]) Neutrophils % 65.6 % 36.0-66.0 [facility] Lymph % 24.7 % 24.0-44.0 [facility] [facility]) Eos % 1.1 % 0.0-3.0 [facility]) Baso % 0.6 % 0.0-1.0 [facility]) Immature Granulocyte % 0.2 % 0-3.0 [facility] ([facility]) Nucleated Red Blood Cell % 0.0 % 0-0 [facility] ([facility]) Lymph # 2.3 10 1.5-5.0 [facility] [facility]) Neutrophils # 6.2 10 1.5-8.5 [facility] [place] # 0.7 10 0.0-0.8 [facility]) Eos # 0.1 10 0.0-0.5 [facility]) Baso # 0.1 10 0.0-0.2 [facility]) ID Date Data Source [id number] 10/21/2020 10:00:00 AM EST [facility] Name Value Range Interpretation Code Description Data Joan rce(s) Supporting Document(s) SARS coronavirus 2 RNA Not Detected [facility] This lab was ordered by [facility] and reported by [facility]. ID Date Data Source [id number] 10/14/2020 06:20:00 AM EST [facility] Name Value Range Interpretation Code Description Data Joan rce(s) Supporting Document(s) SARS coronavirus 2 RNA Not Detected [facility] [place] This lab was ordered by [facility] and reported by [facility]. ID Date Data Source [id number] 10/07/2020 09:00:00 AM EST [facility] Name Value Range Interpretation Code Description Data Joan rce(s) Supporting Document(s) SARS coronavirus 2 RNA Not Detected [facility] [place] This lab was ordered by [facility] and reported by [facility]. ID Date Data Source [id number] 09/30/2020 01:00:00 PM EST [facility] Name Value Range Interpretation Code Description Data Joan rce(s) Supporting Document(s) SARS coronavirus 2 RNA Not Detected [facility] [place] This lab was ordered by [facility] and reported by [facility]. ID Date Data Source [id number] 09/23/2020 12:00:00 PM EST [facility] Name Value Range Interpretation Code Description Data Joan rce(s) Supporting Document(s) SARS coronavirus 2 RNA Not Detected [facility] [place] This lab was ordered by [facility] and reported by [facility]. ID Date Data Source [id number] 09/16/2020 06:00:00 AM EST [facility] Name Value Range Interpretation Code Description Data Joan rce(s) Supporting Document(s) SARS coronavirus 2 RNA Not Detected [facility] [place] This lab was ordered by [facility] and reported by [facility]. ID Date Data Source [id number] 09/09/2020 09:00:00 AM EST [facility] Name Value Range Interpretation Code Description Data Joan rce(s) Supporting Document(s) SARS coronavirus 2 RNA [facility] This lab was ordered by [facility] and reported by [facility]. ID Date Data Source [id number] 09/02/2020 10:00:00 AM EST [facility] Name Value Range Interpretation Code Description Data Joan rce(s) Supporting Document(s) SARS coronavirus 2 RNA [facility] This lab was ordered by [facility] and reported by [facility]. ID Date Data Source [id number] 08/26/2020 10:00:00 AM EST [facility] Name Value Range Interpretation Code Description Data Joan rce(s) Supporting Document(s) SARS coronavirus 2 RNA [facility] This lab was ordered by [facility] and reported by [facility]. ID Date Data Source [id number] 08/21/2020 11:58:00 AM EST [facility] Name Value Range Interpretation Code Description Data Joan rce(s) Supporting Document(s) SARS coronavirus 2 RNA [facility] This lab was ordered by [facility] and reported by [facility]. ID Date Data Source [id number] 08/16/2020 02:46:00 PM EST [facility] Name Value Range Interpretation Code Description Data Joan rce(s) Supporting Document(s) SARS coronavirus 2 RNA [facility] This lab was ordered by [facility] and reported by [facility]. ID Date Data Source [id number] 08/12/2020 09:20:00 AM EST [facility] ([facility] Name Value Range Interpretation Code Description Data Joan rce(s) Supporting Document(s) White Blood Count 9.2 4.0-10.0 [facility] ([facility]) Hemoglobin 10.0 [facility] ([facility]) Platelets 334 150-450 [facility] Red Blood Count 3.47 4.00-5.40 [facility] ([facility]) Hematocrit 31.8 [facility] ([facility]) ID Date Data Source [id number] 08/05/2020 02:17:00 PM EST [facility] ([facility]) Name Value Range Interpretation Code Description Data Joan rce(s) Supporting Document(s) Glucose [Mass/volume] in Serum or Plasma 146 mg/dL 74-99 [facility] ([facility]) 100-125 mg/dL PRE-DIABETES/FASTING >126 mg/dL DIABETES/FASTING Urea nitrogen [Mass/volume] in Serum or Plasma 49 mg/dL 7-18 [facility] ([facility]) NOTE: BUN,CREAT VERIFIED Sodium [Moles/volume] in Serum or Plasma 142 meq/L 136-145 [facility] ([facility]) Creatinine 1.9 mg/dL 0.6-1.3 [facility] ([facility]) Chloride [Moles/volume] in Serum or Plasma 108 meq/L 98-107 [facility] ([facility]) Carbon dioxide, total [Moles/volume] in Serum or Plasma 22 meq/L 21 -32 [facility] ([facility]) Potassium [Moles/volume] in Serum or Plasma 3.7 meq/L 3.5-5.1 [facility] ([facility]) Calcium [Mass/volume] in Serum or Plasma 8.9 mg/dL 8.5-10.1 [facility] ([facility]) Glomerular filtration rate/1.73 sq M pre dicted among non-blacks [Volume Rate/Area] in Serum or Plasma by Creatinine-based formula (MDRD) 25 mL/min [facility] ([facility]) Glomerular filtration rate/1.73 sq M pre dicted among blacks [Volume Rate/Area] in Serum or Plasma by Creatinine-based formula (MDRD) 31 mL/min [facility] ([facility]) <content>CHRONIC KIDNEY DISEASE STAGING PER NKF</content>
<content></content>
<content>STAGE I & II GFR >= 60 NORMAL TO MILDLY DECREASED</content>
<content>STAGE III GFR 30-59 MODERATELY DECREASED</content>
<content>STAGE IV GFR 15-29 SEVERELY DECREASED</content>
<content>STAGE V GFR <15 VERY LITTLE GFR LEFT</content>
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
<content></content> ID Date Data Source [id number] 08/05/2020 02:17:00 PM EST [facility] Name Value Range Interpretation Code Description Data Joan rce(s) Supporting Document(s) Hemoglobin A1c/Hemoglobin.total in Blood 7.1 % [facility] ([facility]) Lab Result Notes: Pre-Diabetes 5.7 - 6.4 % Diabetes = or > 6.5% Glucose mean value [Mass/volume] in Blood Estimated fr om glycated hemoglobin 157 mg/dL 60-110 [facility] ID Date Data Source [id number] 08/05/2020 02:17:00 PM EST [facility] Name Value Range Interpretation Code Description Data Joan rce(s) Supporting Document(s) Hemoglobin A1c/Hemoglobin.total in Blood Laboratory test result [facility] ([facility]) ID Date Data Source [id number] 08/05/2020 02:16:00 PM EST [facility] Name Value Range Interpretation Code Description Data Joan rce(s) Supporting Document(s) Leukocytes [#/volume] in Blood by Automated count 9.0 x10*3/UL 4.1-10 .9 [facility]) Hemoglobin [Mass/volume] in Blood 10.7 g/dL 12.0-18.0 [facility] ([facility]) Erythrocytes [#/volume] in Blood by Automated count 3.52 x10*6/UL 4.2 0-6.30 [facility]) MCH 30.3 pg 26.0-32.0 [facility]) MCV 86.9 fL 80.0-97.0 [facility] ([facility]) Hematocrit [Volume Fraction] of Blood by Automated count 30.6 % 3 7.0-51.0 [facility] ([facility]) MCHC 34.8 g/dL 31.0-38.0 [facility] ([facility]) Erythrocyte distribution width [Ratio] by Automated count 14.9 % 11.6-13.7 [facility] ([facility]) Platelets [#/volume] in Blood by Automated count 386 x10*3/UL 140-440 [facility] ([facility]) MPV 8.4 FL 7.8-11.0 [facility]) Lymph % 22.3 % 10.0-58.5 [facility]) Mid % 4.8 % 1.7-9.3 [facility]) Neut % 72.9 % 37.0-92.0 [facility]) Lymph # 2.0 x10*3/UL 0.6-4.1 [facility] ([facility]) Mid # 0.4 x10*3/UL 0.1-0.6 [facility] ([facility]) Neut # 6.6 x10*3/UL 2.0-7.8 [facility] ([facility]) ID Date Data Source [id number] 07/24/2020 11:20:50 PM [facility] Name Value Range Interpretation Code Description Data Joan rce(s) Supporting Document(s) Progress Note [facility] [id number] lbm [file] [id number]= ID Date Data Source [id number] 06/03/2020 11:31:00 AM EDT [facility] ([facility]) Name Value Range Interpretation Code Description Data Joan rce(s) Supporting Document(s) Ferritin [Mass/volume] in Serum or Plasma 42 ng/mL 8-252 [facility] ([facility]) ID Date Data Source [id number] 06/03/2020 11:31:00 AM EDT [facility] ([facility]) Name Value Range Interpretation Code Description Data Joan rce(s) Supporting Document(s) Total Iron Binding Capacity 410 ug/dL 250-450 ME D[facility] ([facility]) Iron (Fe) 77 ug/dL 50-170 [facility] Percent Saturation 18.8 % 13.2-45.0 [facility] ([facility]) ID Date Data Source [id number] 06/03/2020 11:30:00 AM EDT [facility] ([facility]) Name Value Range Interpretation Code Description Data Joan rce(s) Supporting Document(s) Glucose [Mass/volume] in Serum or Plasma 117 mg/dL 74-99 [facility] ([facility]) 100-125 mg/dL PRE-DIABETES/FASTING >126 mg/dL DIABETES/FASTING Creatinine 1.4 mg/dL 0.6-1.3 [facility] ([facility]) Urea nitrogen [Mass/volume] in Serum or Plasma 31 mg/dL 7-18 [facility] ([facility]) Potassium [Moles/volume] in Serum or Plasma 3.8 meq/L 3.5-5.1 [facility] ([facility]) Sodium [Moles/volume] in Serum or Plasma 138 meq/L 136-145 [facility] ([facility]) Chloride [Moles/volume] in Serum or Plasma 106 meq/L 98-107 [facility] ([facility]) Carbon dioxide, total [Moles/volume] in Serum or Plasma 20 meq/L 21 -32 [facility] ([facility]) Calcium [Mass/volume] in Serum or Plasma 9.8 mg/dL 8.5-10.1 [facility] ([facility]) Alkaline phosphatase isoenzyme [Units/volume] in Serum or Pl asma 84 mg/dL 46-116 [facility] ([facility]) Aspartate aminotransferase [Enzymatic activity/volume] in Se rum or Plasma 8 U/L 15-37 [facility] ([facility]) Total Bilirubin 0.3 mg/dL 0.2-1.0 [facility] ([facility]) Alanine aminotransferase [Enzymatic activity/volume] in Seru m or Plasma 12 U/L 12-78 [facility] ([facility]) Albumin [Mass/volume] in Serum or Plasma 3.2 g/dL 3.4-5.0 [facility] ([facility]) NOTE: RESULT VERIFIED. Proteinase 3 Ab [Units/volume] in Serum 7.1 g/dL 6.4-8.2 [facility] ([facility]) A/G Ratio 0.82 CALC 1.00-1.90 [facility]) Glomerular filtration rate/1.73 sq M pre dicted among non-blacks [Volume Rate/Area] in Serum or Plasma by Creatinine-based formula (MDRD) 36 mL/min [facility] ([facility]) Glomerular filtration rate/1.73 sq M pre dicted among blacks [Volume Rate/Area] in Serum or Plasma by Creatinine-based formula (MDRD) 44 mL/min [facility] ([facility]) <content>CHRONIC KIDNEY DISEASE STAGING PER NKF</content>
<content></content>
<content>STAGE I & II GFR >= 60 NORMAL TO MILDLY DECREASED</content>
<content>STAGE III GFR 30-59 MODERATELY DECREASED</content>
<content>STAGE IV GFR 15-29 SEVERELY DECREASED</content>
<content>STAGE V GFR <15 VERY LITTLE GFR LEFT</content>
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
<content></content> ID Date Data Source [id number] 06/03/2020 11:30:00 AM EDT [facility] ([facility]) Name Value Range Interpretation Code Description Data Joan rce(s) Supporting Document(s) Leukocytes [#/volume] in Blood by Automated count 11.5 x10*3/UL 4.1-1 0.9 [facility] ([facility]) Erythrocytes [#/volume] in Blood by Automated count 3.71 x10*6/UL 4.2 0-6.30 [facility] ([facility]) Hemoglobin [Mass/volume] in Blood 10.9 g/dL 12.0-18.0 [facility] ([facility]) Hematocrit [Volume Fraction] of Blood by Automated count 33.0 % 3 7.0-51.0 [facility] ([facility]) MCV 88.9 fL 80.0-97.0 [facility]) MCH 29.5 pg 26.0-32.0 [facility]) MCHC 33.2 g/dL 31.0-38.0 [facility]) Erythrocyte distribution width [Ratio] by Automated count 17.0 % 11.6-13.7 [facility] ([facility]) MPV 8.5 FL 7.8-11.0 [facility]) Platelets [#/volume] in Blood by Automated count 335 x10*3/UL 140-440 [facility] ([facility]) Mid % 8.7 % 1.7-9.3 [facility]) Lymph % 31.9 % 10.0-58.5 [facility]) Neut % 59.4 % 37.0-92.0 [facility]) Lymph # 3.6 x10*3/UL 0.6-4.1 [facility] ([facility]) Mid # 1.1 x10*3/UL 0.1-0.6 [facility] ([facility]) Neut # 6.8 x10*3/UL 2.0-7.8 [facility] ([facility]) ID Date Data Source [id number] 05/13/2020 10:01:28 PM EDT [facility] Name Value Range Interpretation Code Description Data Joan rce(s) Supporting Document(s) Progress Note [facility] CDRXBc1gAhIBGbJl31/OMEuxQZUtf5ZoNMryFUo9EYzkDQCsE0HzMWS4sJ3bPDT4IDrJGzBgPfBeEBH5 [facility] [file] AgICAgICAgICAgICAgICAgICAgICAgICAgICAgICAg ICAgICAgICAgICAgICAgICAgICAgICAgICANCiAgICAgICAgICAgICAgICAgICAgICAgICAgICAgICAg ICAgICAgICAgICAgICAgICAgICAgICAgICAgICAgICAgICAgICAgICAgICAgICAgICAgICAgICAgICAg ICAgICAgICANCiAgICAgICAgICAgICAgICAgICAgIC AgICAgICAgICAgICAgICAgICAgICAgICAgICAgICAgICAgICAgICAgICAgICAgICAgICAgICAgICAgIC AgICAgICAgICAgICAgICAgICANCiAgICAgICAgICAgICAgICAgICAgICAgICAgICAgICAgICAgICAgIC AgICAgICAgICAgICAgICAgICAgICAgICAgICAgICAg ICAgICAgICAgICAgICAgICAgICAgICAgICAgICANCiAgICAgICAgICAgICAgICAgICAgICAgICAgICAg ICAgICAgICAgICAgICAgICAgICAgICAgICAgICAgICAgICAgICAgICAgICAgICAgICAgICAgICAgICAg ICAgICAgICAgICANCiAgICAgICAgICAgICAgICAgIC AgICAgICAgICAgICAgICAgICAgICAgICAgICAgICAgICAgICAgICAgICAgICAgICAgICAgICAgICAgIC AgICAgICAgICAgICAgICAgICAgICANCiAgICAgICAgICAgICAgICAgICAgICAgICAgICAgICAgICAgIC AgICAgICAgICAgICAgICAgICAgICAgICAgICAgICAg ICAgICAgICAgICAgICAgICAgICAgICAgICAgICAgICANCiAgICAgICAgICAgICAgICAgICAgICAgICAg ICAgICAgICAgICAgICAgICAgICAgICAgICAgICAgICAgICAgICAgICAgICAgICAgICAgICAgICAgICAg ICAgICAgICAgICAgICANCiAgICAgICAgICAgICAgIC AgICAgICAgICAgICAgICAgICAgICAgICAgICAgICAgICAgICAgICAgICAgICAgICAgICAgICAgICAgIC AgICAgICAgICAgICAgICAgICAgICAgICANCiAgICAgICAgICAgICAgICAgICAgICAgICAgICAgICAgIC AgICAgICAgICAgICAgICAgICAgICAgICAgICAgICAg ICAgICAgICAgICAgICAgICAgICAgICAgICAgICAgICAgICANCjw/kYOxI6kwnOLzosM2T8mvFc0ZQz4D XB4ir2JsSNEdNJkqotZcCjjDCiXeMNAiRoqNNxq9NXqiIS1GrXUnF2EsK4HkKOtnVY5BASYlZHXhlDYv DXXtEFRwVyW4RTJjCTvhIJ3SdTDuDTzpGDCqOYYiMt RoURQsRH4GLJIsV570yzCwDm8TIv6QEcThBK1hbb3OOdSyASMiLaqUCxf6PKbmHK9SdNIkaCKcKeMeJD DHTfHyG3gzc4KcBbIrOUYOYDcgKS4Oj8OrnIReIXc+Ps8RCH0zk8JjLRgqJfDzKI2nuk8EJBcUHwPeC9 AyvQjdDCSll8avHDDxBM5gpURqQBD0LFFgfZyoRHqd qfomXJHtDZVlIZ1vKu2wGNEjAMVsKbHpAIHRYA2ETPTgIVOguKPkHPQdBLTMVI7EISesOOC7EGTjbkQp hRQzTTnzRX1KFZCpkxPtJsRcUQHTPOt+Ma4VZB2et3SuTRaxOrPqKE4fuh4LZTaTMoKnS3F0sHXxQ4L1 VIolSo5HEUBlELObSJkdAVEWBCrfLZ9TXK6rbxU2BH 8FbVWnSNKkOBGwiIAbCCa6D20pgAGcZXdfML8IUSM+Carol+Go7BLEDbWAPcYXHzZbDnQNHFRjEiQ1WdN8 JTa7TqL2ToAT22cQznitEkSOgtXG5JEJ1hBQCaCTHGKG8WwLDvdC5xoyBnOZWhWEWNHaZbS14qwPKeJS XzRTJvYGWwYi9VKIDmI5TnzaTzcIxlwgTuKTErZBPK EK4RAOzxrmNuoOXzkWdsZG60zEjpMZ0VTg0YJyQoHR6ces5BrHCfDr7QKSLiYB4FSHNkNFMsJGZxHHE9 WWSzVbQwCSdqMLKoSYFkNKT8LHHxESBnNX8IHsAdLISjFlg7JjcaBLBzFDSgfd8WRYSvLVUcTTA9ZSVh RVBjRGHuIYydQJGtPZTyJLL7JDTqOKCpRT5PSsVdOW EgXDK5JUzeWPYwGQOldb9WLGRxHYBzJKD6YZPtTQHoRQAfHEbhBKCbUOP9LorcMVOhTSBdYZ1AXjMtDW XhKOW7PcmlOTGbAHLawu7DTJZjESPqWAfxDzQkTCCrYFPqZFtpURNeAGH5QFMlJNTcRTQoFQ7HLnHrLU AoKRBgFPMmSDXyTZKpch2RMVJeTRNaQaT8CwQgNVTz SZUqIHorONVfXBA5Hgk4GGTtNDAdJD1CYhWdLEXiRTc0UeTyKUAuMTStgq3QKOXtJALmYAW7SXSaETPn ZIMyBYpyKQRzXEN1WcAkKIGmEDHvCA3BPnRbUMHoExz2ZEnoQCFdXWBrip1VYUSdSGMcCISqSXOaBNVc DTUtOYxrPOEsNFA2OST2APWuRFBcSQ2FOdJcHGUbZj f9YDbpLKYvBHMwgb1STIWaIROkRQV7NcYaFSKrRLSdVNedLMWvKLCaWCOeTYNdTMElJM8XZxPiWDZmQq O0UUkvELIuFOZjfb1NcKZhgFhifa8CXMcJKm5LkYltIGJ8VCkmEy3tmXVjRxTvGRPNQl1MvzFqADPpYV TYPUgeOMUtWSX3GUmzOyAoNDbwXWOgNLHfWZdqEaM1 MnCdXXF6UfS6RwF2Omt9H5MwZAD0GYAdCMB1DLWiLIN0FKs9KKE2HYRiURl+JU5tYKe+Zu5Zn3ShwxG4 atEuXJwmVAp1BG3VSXRFS6KZJo== Procedure Social History Code Duration Value Status Description Data Source(s ) Smoking 04/28/2021 12:00:00 AM EDT Former Smoker completed Former Smoker eCW1 ([facility]) Smoking 04/28/2021 12:00:00 AM EDT Former Smoker completed Former Smoker eCW1 ([facility]) Smoking 04/28/2021 12:00:00 AM EDT Former Smoker completed Former Smoker eCW1 ([facility]) Smoking 04/28/2021 12:00:00 AM EDT Former Smoker completed Former Smoker eCW1 ([facility]) Smoking 04/28/2021 12:00:00 AM EDT Former Smoker completed Former Smoker eCW1 ([facility]) Smoking 04/28/2021 12:00:00 AM EDT Former Smoker completed Former Smoker eCW1 ([facility]) Smoking 04/28/2021 12:00:00 AM EDT Former Smoker completed Former Smoker eCW1 ([facility]) Smoking 04/28/2021 12:00:00 AM EDT Former Smoker completed Former Smoker eCW1 ([facility]) Smoking 03/31/2021 12:00:00 AM EDT Never Smoker completed Never S moker eCW1 ([facility]) Smoking 03/31/2021 12:00:00 AM EDT Never Smoker completed Never S moker eCW1 ([facility]) Smoking 03/24/2021 12:00:00 AM EDT Patient is a former smoker completed Patient is a former smoker [facility] ([facility]) Vital Signs ID Date Data Source UNK Name Value Range Interpretation Code Description Data Source(s) Oxygen saturation in Arterial blood by Pulse oximetry 99 % 99 % [facility] ([facility], ) Room Air Systolic blood pressure 128 mm[Hg] 128 mm[Hg] M EDENT ([facility], ) Diastolic blood pressure 70 mm[Hg] 70 mm[Hg] [facility] Heart rate 88 /min 88 /min [facility] ([facility], ) Heart rate 91 /min 91 /min eCW1 ([facility]) Body weight 136 [lb_av] 136 [lb_av] eCW1 ([facility]ly [facility], 1928[facility]1983) Respiratory rate 20 /min 20 /min eCW1 ([facility]) Body weight 61.69 kg 61.69 kg eCW1 ([facility]) Body height 67 [in_i] 67 [in_i] eCW1 ([facility]) Body temperature 97.7 [degF] 97.7 [degF] eCW1 ( [facility]) Diastolic blood pressure 68 mm[Hg] 68 mm[Hg] eCW1 ([facility]) Systolic blood pressure 126 mm[Hg] 126 mm[Hg] e CW1 ([facility]) Body mass index (BMI) [Ratio] 21.30 kg/m2 21.30 kg/m2 W1 ([facility]) Body temperature 96 [degF] 96 [degF] eCW1 ([facility]) Systolic blood pressure 130 mm[Hg] 130 mm[Hg] e CW1 ([facility]) Respiratory rate 20 /min 20 /min eCW1 ([facility]) Diastolic blood pressure 78 mm[Hg] 78 mm[Hg] eCW1 ([facility]) Body weight 137.08 [lb_av] 137.08 [lb_av] eCW1 ([facility]) Heart rate 96 /min 96 /min eCW1 ([facility]) Body weight 62.18 kg 62.18 kg eCW1 ([facility]) Body height 67 [in_i] 67 [in_i] eCW1 ([facility]) Body mass index (BMI) [Ratio] 21.47 kg/m2 21.47 kg/m2 eCW1 ([facility]) Body mass index (BMI) [Ratio] 21.92 kg/m2 21.92 kg/m2 eCW1 ([facility]) Body weight 140 [lb_av] 140 [lb_av] eCW1 ([facility], [facility]) Body height 67 [in_i] 67 [in_i] eCW1 ([facility]) Heart rate 102 /min 102 /min eCW1 ([facility]) Respiratory rate 24 /min 24 /min eCW1 ([facility]) Body temperature 98 [degF] 98 [degF] eCW1 ([facility]) Systolic blood pressure 126 mm[Hg] 126 mm[Hg] e CW1 ([facility]) Diastolic blood pressure 68 mm[Hg] 68 mm[Hg] eCW1 ([facility]) Respiratory rate 16 /min 16 /min MED[facility] ( [facility]) Body weight 143.00 [lb_av] 143.00 [lb_av] MEDEN T ([facility]) Body height 66 [in_i] 66 [in_i] [facility] ([facility]) 5'6" Systolic blood pressure 146 mm[Hg] 146 mm[Hg] M EDENT ([facility]) sitting, regular cff Body mass index (BMI) [Ratio] 23.1 kg/m2 23.1 k g/m2 [facility] ([facility]) Heart rate 60 /min 60 /min [facility] ([facility]) Regular Diastolic blood pressure 78 mm[Hg] 78 mm[Hg] [facility] ([facility]) sitting Diastolic blood pressure 82 mm[Hg] 82 mm[Hg] [facility] ([facility]) sitting, regular cff Systolic blood pressure 146 mm[Hg] 146 mm[Hg] M EDENT ([facility]) sitting Systolic blood pressure 110 mm[Hg] 110 mm[Hg] M EDENT ([facility]) Diastolic blood pressure 68 mm[Hg] 68 mm[Hg] [facility] ([facility]) Heart rate 88 /min 88 /min [facility] ([facility]) Body height 66 [in_i] 66 [in_i] [facility] ([facility]) 5'6" Body weight 142.00 [lb_av] 142.00 [lb_av] MEDEN T ([facility]) Oxygen saturation in Arterial blood by Pulse oximetry 96 % 96 % [facility] ([facility]) RM Air Body mass index (BMI) [Ratio] 22.9 kg/m2 22.9 k g/m2 [facility] ([facility]) Body height 67 [in_i] 67 [in_i] [facility] ([facility]) 5'7" Body weight 147.00 [lb_av] 147.00 [lb_av] MEDEN T ([facility]) Systolic blood pressure 129 mm[Hg] 129 mm[Hg] M EDENT ([facility]) Diastolic blood pressure 83 mm[Hg] 83 mm[Hg] [facility] ([facility]) Heart rate 79 /min 79 /min [facility] ([facility]) Body mass index (BMI) [Ratio] 23.0 kg/m2 23.0 k g/m2 [facility] ([facility]) Body weight 66.679 kg 66.679 kg [facility] ([facility]) Body temperature 95.5 [degF] 95.5 [degF] MED[facility] ([facility]) [place] body weight 130 [lb_av] 130 [lb_av] MEDEN T ([facility]) Body weight 63.958 kg 63.958 kg [facility] ([facility]) Body surface area Derived from formula 1.72 m2 1.72 m2 [facility] ([facility]) Oxygen saturation in Arterial blood by Pulse oximetry 99 % 99 % [facility] ([facility]) Room Air Body height 66 [in_i] 66 [in_i] [facility] ([facility]) 5'6" Body weight 141.00 [lb_av] 141.00 [lb_av] MEDEN T ([facility]) Body mass index (BMI) [Ratio] 22.8 kg/m2 22.8 k g/m2 [facility] ([facility]) Body mass index (BMI) [Ratio] 22.8 kg/m2 22.8 k g/m2 [facility] ([facility]) Oxygen saturation in Arterial blood by Pulse oximetry 99 % 99 % [facility] ([facility]) Room Air Systolic blood pressure 130 mm[Hg] 130 mm[Hg] M [facility] ([facility]) Diastolic blood pressure 70 mm[Hg] 70 mm[Hg] [facility] ([facility]) Heart rate 73 /min 73 /min [facility] ([facility]) Body height 66 [in_i] 66 [in_i] [facility] ([facility]) 5'6" Body weight 141.00 [lb_av] 141.00 [facility]_av] [facility] [place] body weight 130 [lb_av] 130 [lb_av] [facility] Body weight 63.958 kg 63.958 kg [facility] ([facility]) Body surface area Derived from formula 1.72 m2 1.72 m2 [facility] ([facility]) Heart rate 67 /min 67 /min [facility] ([facility]) Diastolic blood pressure 60 mm[Hg] 60 mm[Hg] [facility] ([facility]) Body height 66 [in_i] 66 [in_i] [facility] ([facility]) 5'6" Body weight 142.00 [lb_av] 142.00 [lb_av] [facility] Oxygen saturation in Arterial blood by Pulse oximetry 97 % 97 % [facility] ([facility]) RM Air Body mass index (BMI) [Ratio] 22.9 kg/m2 22.9 k g/m2 [facility] ([facility]) Systolic blood pressure 122 mm[Hg] 122 mm[Hg] [facility] Systolic blood pressure 102 mm[Hg] 102 mm[Hg] [facility] Diastolic blood pressure 60 mm[Hg] 60 mm[Hg] [facility] Heart rate 70 /min 70 /min [facility] ([facility]) Body height 66 [in_i] 66 [in_i] [facility] ([facility]) 5'6" Body weight 141.00 [lb_av] 141.00 [lb_av] [facility] T ([facility]) Oxygen saturation in Arterial blood by Pulse oximetry 96 % 96 % [facility] ([facility]) RM Air Body mass index (BMI) [Ratio] 22.8 kg/m2 22.8 k g/m2 [facility] ([facility]) Body weight 140.00 [lb_av] 140.00 [lb_av] [facility] ([facility]) Body height 66 [in_i] 66 [in_i] [facility] 5'6" Body mass index (BMI) [Ratio] 22.6 kg/m2 22.6 k g/m2 [facility] ([facility]) Heart rate 71 /min 71 /min [facility] ([facility]) Respiratory rate 18 /min 18 /min [facility] ( [facility]) Systolic blood pressure--sitting 138 mm[Hg] 138 mm[Hg] [facility] ([facility]) Diastolic blood pressure--sitting 70 mm[Hg] 70 mm[Hg] [facility] ([facility]) Oxygen saturation in Arterial blood by Pulse oximetry 98 % 98 % [facility] ([facility]) Systolic blood pressure 118 mm[Hg] 118 mm[Hg] M EDENT ([facility], ) Diastolic blood pressure 70 mm[Hg] 70 mm[Hg] [facility] ([facility], ) Heart rate 81 /min 81 /min [facility], ) Oxygen saturation in Arterial blood by Pulse oximetry 98 % 98 % [facility], ) Room Air [place] body weight 130 [lb_av] 130 [lb_av] [facility] T ([facility], ) Body height 66 [in_i] 66 [in_i] [facility] ([facility], ) 5'6" Systolic blood pressure 108 mm[Hg] 108 mm[Hg] M EDENT ([facility]) Diastolic blood pressure 60 mm[Hg] 60 mm[Hg] [facility] ([facility]) Heart rate 82 /min 82 /min [facility] ([facility]) Body height 66 [in_i] 66 [in_i] [facility] ([facility]) 5'6" Body weight 139.00 [lb_av] 139.00 [lb_av] [facility] T ([facility]) Oxygen saturation in Arterial blood by Pulse oximetry 96 % 96 % [facility]) RM Air Body mass index (BMI) [Ratio] 22.4 kg/m2 22.4 k g/m2 [facility] ([facility]) Heart rate 80 /min 80 /min [facility] ([facility]) Body height 66 [in_i] 66 [in_i] [facility] ([facility]) 5'6" Body weight 139.00 [lb_av] 139.00 [lb_av] [facility] T ([facility]) Systolic blood pressure 102 mm[Hg] 102 mm[Hg] M [facility] ([facility]) Diastolic blood pressure 60 mm[Hg] 60 mm[Hg] [facility] ([facility]) Oxygen saturation in Arterial blood by Pulse oximetry 99 % 99 % [facility] ([facility]) RM Air Body mass index (BMI) [Ratio] 22.4 kg/m2 22.4 k g/m2 [facility] ([facility]) Systolic blood pressure 102 mm[Hg] 102 mm[Hg] M [facility] ([facility], ) Diastolic blood pressure 62 mm[Hg] 62 mm[Hg] [facility] ([facility], ) Heart rate 71 /min 71 /min [facility] ([facility], ) Oxygen saturation in Arterial blood by Pulse oximetry 96 % 96 % [facility] ([facility], ) Room Air Body temperature 96.5 [degF] 96.5 [degF] [facility] ([facility]) Body height 66 [in_i] 66 [in_i] [facility] ([facility]) 5'6" [place] body weight 130 [lb_av] 130 [lb_av] [facility] T ([facility], ) Patient Treatment Plan of Care Planned Activity Planned Date Details Description Data Source (s) Docusate Sodium 50 MG / sennosides, RETIREMENT 8.6 MG Oral Ta blet 05/28/2021 12:00:00 AM EDT eCW1 ([facility]) Flonase Allergy Relief 50 MCG/ACT 03/31/2021 12:00:00 AM EDT eCW1 ([facility]) Flonase Allergy Relief 50 MCG/ACT 03/31/2021 12:00:00 AM EDT eCW1 ([facility]) brinzolamide 10 MG/ML Ophthalmic Suspension 04/08/2020 12:00:00 AM [facility] pantoprazole 40 MG Delayed Release Oral Tablet 04/08/2020 12:00:00 AM [facility]
[2021-06-22] MEDS ORDERED: methylPREDNISolone 125MG 2ML VIAL IV ONE (10:40)
[2021-06-22] MEDS ORDERED: cefTRIAXone SOD 1 GM in D5W MINI-BAG PLUS 50 ML IV ONE (10:40)
[2021-06-22] MEDS ORDERED: IPRATROPIUM 0.5MG/ALBUTEROL 2.5MG INH SOL UD 3ML (DUONEB) NEB ONE (10:40)
[2021-06-22 11:15] LABS: ALBUMIN 2.3 GM/DL (3.2-5.2); ALT/SGPT 11 U/L (12-78); BILIRUBIN,TOTAL 0.4 MG/DL (0.2-1.0); BLOOD UREA NITROGEN 64 MG/DL (7-18); CALCIUM LEVEL 8.8 MG/DL (8.8-10.2); CARBON DIOXIDE LEVEL 21 MEQ/L (21-32); CHLORIDE LEVEL 105 MEQ/L (98-107); CK-MB VALUE MASS < 1.0 NG/ML (<3.6); CPK CREATINE PHOSPHOKINASE 56 U/L (26-192); CREATININE FOR GFR 2.11 MG/DL (0.55-1.30); FREE T4 1.27 NG/DL (0.76-1.46); GLOMERULAR FILTRATION RATE 23.8 (>32); GLUCOSE, FASTING 141 MG/DL (70-100); MB/CK RELATIVE INDEX 1.79 (< OR =4); NT-PRO BNP 3335 PG/ML (<450); SODIUM LEVEL 135 MEQ/L (136-145); THYROID STIMULATING HORMONE 0.564 uIU/ML (0.358-3.740); TOTAL PROTEIN 5.5 GM/DL (6.4-8.2); TROPONIN I < 0.02 NG/ML (< 0.10)
[2021-06-22] MEDS ORDERED: AZITHROMYCIN INJ 500 MG, VIAL MATE ADAPTER 1 EACH in NS 250 ML IV ONE (11:15)
[2021-06-22] MEDS ORDERED: GLUCOSE 4GM CHEW TABLET PO PRN (12:15)
[2021-06-22] MEDS ORDERED: MOM 30ML SUSPENSION UDC PO PRN (12:15)
[2021-06-22] MEDS ORDERED: ACETAMINOPHEN TAB 650MG DOSE (2X325MG) PO PRN (12:15)
[2021-06-22] MEDS ORDERED: DEXTROSE 50% 50 ML SYRINGE IV PRN (12:15)
[2021-06-22] MEDS ORDERED: MAALOX 30 ML SUSP *UDC PO PRN (12:15)
[2021-06-22] MEDS ORDERED: GLUCAGON INJ 1MG VIAL SC PRN (12:15)
--- NOTE | 2021-06-22 12:20 | HPEPDOC ---
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 She was a resident of [facility]. She was brought to the ER after she developed symptomatic fevers, rigors, dysuria lower abdominal discomfort as well as worsening cough. Patient patient was mildly hypoxic to the high 80s at [facility]. On arrival to the ER patient was found to have infiltrates on chest x-ray as well as evidence for infection on urinary analysis. Patient found to have elevation of creatinine likely secondary to reduced p.o. intake. Patient was given empiric ceftriaxone and azithromycin for Treatment of UTI as well as pneumonia. Upon further chart review, past last admitted in 03/2021. Has hx of pseudomonas pneumonia mucoid colonies. Was treated with 7 days of IV meropenem. Sputum AFB, smear and cultures, Quantiferon-TB gold and funal smear and culture were sent. Patient was evaluated by Dr. Donaldson, and has since been followed in clinic. AFB smear was negative, Quant TB gold negative, legionella and strep pneumo negative. Sputum culture and gram stain (03/14/21) positive for MAC. Sputum fungal culture (03/17/21) positive for Idalia Albicans and Idalia Glabrata. Repeat sputum smear and culture were ordered 04/2021, pending. PAST MEDICAL HISTORY: CAD w RCA stent in 2004,Chronic HFpEF (grade1), Moderate Pulmonary HTN (PASP 40- 50), Aortic valve sclerosis w/o stenosis, COPD, CKD3, NIDDM (A1C 6.4%), Chronic BLE DVT with IVC filter April 2019, Type II Mobitz heart block with pacemaker, GERD, Glaucoma and macular degeneration, History of upper GI bleed PAST SURGICAL HISTORY: History of small bowel obstruction due to adhesions, Subtotal colectomy around 1999, Hysterectomy, Cholecystectomy, Appendectomy, Multiple breast biopsies, Bilateral cataract surgery SOCIAL HISTORY: Former smoker. 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 REVIEW OF SYSTEMS: 10 point ROS conducted, relevant findings are noted in the HPI HOME MEDICATIONS: Please see below. PHYSICAL EXAMINATION: VITAL SIGNS: please see below General: NAD, comfortable HEENT: PERRLA, EOMI, sclerae clear Neck: supple, normal ROM, no JVD Respiratory: rales at left lung base, no wheeze, fair inspiratory effort CVS: RRR, normal S1, S2, no murmurs Abdo: soft, no masses, no hepatosplenomegaly, BS+, no rebound tenderness Extremities: no edema, pulses 2+ MSK: no joint deformities, normal ROM Neuro: no focal neuro deficits, moving all 4 extremities, CN2-12 intact. Strength 5/5 in all 4 extremities. No nystagmus. Psych: calm, cooperative, AAO x 3 LABORATORY DATA: See below. IMAGING: CXR on 06/22/2021: Acute bibasilar opacities with small pleural effusion. MICROBIOLOGY: Please see below. 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 Patient was admitted with pneumonia as well as GUY and urinary tract infection. . PLAN: Pneumonia, possibly MAC - patient has hx of pseudomonas aeruginosa pna, completed 7 day course of meropenem 03/2021 - has been followed by Dr. Donaldson on outpatient basis - Sputum culture and gram stain (03/14/21) positive for MAC. Sputum fungal culture (03/17/21) positive for Idalia Albicans and Idalia Glabrata. Repeat sputum smear and culture were ordered 04/2021, pending. - at this time, it is likely that patient requires MAC therapy with azithromycin, rifampin and ethambutol three times per week - isolated Idalia Albicans and Idalia Glabrate from sputum likely does not treatment unless suspected disseminated candidasis. - I will consult Dr. Donaldson for further guidance on 06/22/21 - for now, patient has not been admitted to hospital since 03/2021, therefore my suspicion for pseudomonas is low - will continue with ceftriaxone and azithromycin which were ordered in ER - blood cultures x 2, sputum culture, legionella, strep pneumo ag, MRSA screen ordered - trend ESR, CRP, procalcitonin GUY on CKD 3 - likely pre-renal, 2/2 reduced PO intake - will start patient on judicious fluids - check renal US - avoid nephrotoxins - will hold torsemide 10 mg for now. UTI/cystitis - UA showing pyuria, blood and LE+ - started on empiric ceftriaxone in ER, will continue HFpEF - BNP is elevated in ER at 3300 - patient is not displaying symptoms of fluid overload. No SOB, no edema, no crackles - volume depleted based on GUY, reports reduced PO intake - start IV NS 125 cc/hr - judicious use of fluids. - hold torsemide at this time. Hx COPD - patient is breathing comfortably, on arrival at 2L, but now on RA - resume home inhalers: albuterol and advair CAD with RCA stent - stenting in 2004 - patient does not take ASA or plavix, there is hx of GI bleeding - c/w Xarelto AOCD - Hgb at baseline Hx of Mobitz Type II heart block s/p pacemaker NIDDM - hold oral meds - ISS AC and HS - hypoglycemic precautions Chronic BLE DVT s/p IVC filter 04/2019 - xarelto Glaucoma and macular degeneration - resume home eye drops, patient brought own meds - Latanoprost and brinzolamide Code status: DNR/DNI Dispo: pending clinical improvement. Admission expected to span > 2 midnights. Vital Signs Vital Signs Date Time Temp Pulse Resp B/P (MAP) Pulse Ox O2 Delivery O2 Flow Rate FiO2 06/22/21 12:00 70 108/54 (72) 06/22/21 11:59 18 97 Room Air 06/22/21 09:59 97.9 2.0 Laboratory Data Labs 24H Laboratory Tests 2 06/22/21 09:21: Immature Granulocyte % (Auto) 0.6, Neutrophils (%) (Auto) 82.5H, Lymphocytes (%) (Auto) 8.7L, Monocytes (%) (Auto) 7.8, Eosinophils (%) (Auto) 0.2, Basophils (%) (Auto) 0.2, Neutrophils # (Auto) 11.1H, Lymphocytes # (Auto) 1.2L, Monocytes # (Auto) 1.1H, Eosinophils # (Auto) 0.0, Basophils # (Auto) 0.0, Nucleated Red Blood Cells % (auto) 0.0, Anion Gap 9, Glomerular Filtration Rate 23.8L, Lactic Acid Level 0.9, Calcium Level 8.8, Total Bilirubin 0.4, Aspartate Amino Transf (AST/SGOT) 17, Alanine Aminotransferase (ALT/SGPT) 11L, Alkaline Phosphatase 97, Total Creatine Kinase 56, Creatine Kinase MB < 1.0, Creatine Kinase MB Relative Index 1.79, Troponin I < 0.02, LE-Dul-C-Type Natriuretic Peptide 3335H, Total Protein 5.5L, Albumin 2.3L, Albumin/Globulin Ratio 0.7L, Thyroid Stimulating Hormone (TSH) 0.564, Free Thyroxine 1.27 06/22/21 09:28: Urine Color YELLOW, Urine Appearance CLOUDYH, Urine pH 6.0, Urine Specific [place] 1.011, Urine Protein 1+H, Urine Glucose (UA) NEGATIVE, Urine Ketones NEGATIVE, Urine Blood NEGATIVE, Urine Nitrite NEGATIVE, Urine Bilirubin NEGATI VE, Urine Urobilinogen 0.2, Urine Leukocyte Esterase 3+H, Urine WBC (Auto) 178H, Urine RBC (Auto) 14H, Urine Hyaline Casts (Auto) 0, Urine Bacteria (Auto) 3+H, Urine Squamous Epithelial Cells 14, Urine Mucus (Auto) SMALL, Urine Sperm (Auto) CBC/BMP Laboratory Tests 06/22/21 09:21 Microbiology Microbiology 06/22/21 Urine Culture, Received Pending 06/22/21 Respiratory Virus Panel (PCR) (ROBLES) - Final, Complete 06/22/21 Blood Culture, Received Pending 06/22/21 Blood Culture, Received Pending Home Medications Scheduled Allopurinol (Allopurinol) 100 Mg Tablet, 100 MG PO DAILY Brinzolamide (Azopt) 1% 10ML Drops.susp, 1 DROP OU BID Calcitriol (Calcitriol) 0.25 Mcg Capsule, 0.25 MCG PO DAILY Cefdinir (Cefdinir) 300 Mg Capsule, 600 MG PO DAILY Cholecalciferol (Vitamin D3) (Vitamin D3) 50 Mcg Capsule, 50 MCG PO DAILY Doxycycline Hyclate (Doxycycline Hyclate) 100 Mg Tablet, 100 MG PO BID Ferrous Gluconate (Ferrous Gluconate) 324 Mg Tablet, 324 MG PO DAILY Ipratropium [place] (Atrovent Hfa) 12.9 Gm Hfa.aer.ad, 2 PUFF INH QID Latanoprost (Xalatan) 0.005% 2.5ML Drops, 1 DROP OU QHS Pantoprazole Sodium (Pantoprazole Sodium) 40 Mg Tablet.dr, 40 MG PO DAILY Rivaroxaban (Xarelto) 15 Mg Tablet, 15 MG PO QPM 1700 Salmeterol/Fluticasone (Advair 500-50 Diskus) 1 Each Blst.w.dev, 1 PUFF INH BID Sennosides/Docusate Sodium (Senna-S Tablet) 1 Each Tablet, 2 TAB PO DAILY Sodium Bicarbonate (Sodium Bicarbonate) 325 Mg Tablet, 325 MG PO BID Sucralfate (Sucralfate) 1 Gm Tablet, 1 GM PO BID Torsemide (Torsemide) 10 Mg Tablet, 10 MG PO DAILY Vit C/E/Zn/Coppr/Lutein/Zeaxan (Preservision Areds 2 Softgel) 1 Each Capsule, 1 CAP PO BID Scheduled PRN Acetaminophen (Acetaminophen ER) 650 Mg Tablet.er, 650 MG PO Q8H PRN for PAIN/FEVER Albuterol Sulf (Albuterol Sulfate) 2.5 Mg/3 Ml Vial.neb, 2.5 MG INH QID PRN for SHORTNESS OF BREATH Diclofenac Sodium (Diclofenac Sodium) 1% 100GM Gel..gram., 4 GM TOP QID PRN for PAIN APPLY TO AREAS OF MUSCLE ACHE Fluticasone Propionate (Fluticasone Propionate) 16 Gm [place].susp, 1 SPRAY NARES DAILY PRN for CONGESTION Guaifenesin (Mucinex) 600 Mg Tab.er.12h, 600 MG PO BID PRN for CONGESTION Magnesium Hydroxide (Milk of Magnesia) 400 Mg/5 Ml Oral.susp, 2,400 MG PO DAILY PRN for CONSTIPATION Nitroglycerin (Nitrostat) 0.4 Mg Tab.subl, 0.4 MG SL NITRO PRN for CHEST PAIN Allergies Coded Allergies: carvedilol (Verified Allergy, Severe, difficulty breathing, 06/22/21) pitavastatin (Verified Allergy, Severe, anaphylaxis, 06/22/21) Penicillins (Verified Allergy, Mild, rash, 06/22/21) Quinolones (Verified Allergy, Mild, rash, 06/22/21) DG Inhibitors (Verified Adverse Reaction, Intermediate, kidney problems / cough, 06/22/21) dexamethasone (Verified Adverse Reaction, Intermediate, eyes burn, 06/22/21) dorzolamide (Verified Adverse Reaction, Intermediate, eyes burn, 06/22/21) neomycin (Verified Adverse Reaction, Intermediate, eyes burn, 06/22/21) polymyxin B (Verified Adverse Reaction, Intermediate, eyes burn, 06/22/21) timolol (Verified Adverse Reaction, Intermediate, eyes burn, 06/22/21) colesevelam (Verified Adverse Reaction, Mild, myalgia, 06/22/21) ezetimibe (Verified Adverse Reaction, Mild, myalgia, 06/22/21) losartan (Verified Adverse Reaction, Mild, nausea / no appetite, 06/22/21) A-FIB/CHADSVASC A-FIB History Current/History of A-Fib/PAF?: No Current PO Anticoag Therapy: Yes ROD FOX MD Jun 22, 2021 12:20
--- OUTSIDE RECORDS SUMMARY | 2021-06-22 12:34 | CCD ---
Author Author [facility] Organization [facility] Address Unknown Phone Unavailable Care Team Providers Care Flight Engineer Name Role Phone Karlo Jones MD Unavailable [...] Unavailable Unavailable Kathleen, Gilda DO Unavailable Unavailable Kahtleen, Gilda DO Unavailable Unavailable Kathleen, Gilda DO [...] is protected by Article 27-F of the [place] State Public Health law. If you continue you may have access to information: Regarding HIV / AIDS; Provided by facilities licensed or operated by the [facility] Office of Mental Health; or Provided by the [facility] Office for People With Developmental Disabilities. If such information is present, then the following [facility] mandated warning applies: This information has been [...] law may result in a fine or fdc sentence or both. A general authorization for the release of medical or other information is NOT sufficient authorization for further disc losure. Allergies and Adverse Reactions Type Description Substance Reaction Status Data Source(s ) Propensity to adverse reactions Penicillin (For Allergies Use On ly) 53459 Hives Active [facility]CW1 [facility] Family History Family Member Name Family Member Gender Family Member Status Date o f Status Description Data Source(s) Unknown Unknown Problem MEDENT ([facility]) Unknown Male Problem MEDENT ([facility]) Unknown Male Problem MEDENT ([facility]) Unknown Male Problem MED[facility] ([facility] () Encounters Encounter Providers Location Date Indications Data Source(s ) Unknown [address] [facility] [address] [address] 05/28/2021 12:00:00 AM EDT eCW1 ([facility]) Unknown [address] [facility] [address] 05/26/2021 12:00:00 AM EDT eCW1 ([facility]) Unknown [address] [facility] [address] 05/22/2021 12:00:00 AM EDT eCW1 ([facility]) Unknown [address] [address] 05/21/2021 12:00:00 AM EDT eCW1 ([facility]) Outpatient Attender: Todd Moulton/Swapna/Jaciel jorge 05/20/2021 03:00:00 PM EDT MEDENT ([facility]) [place] [address] [facility] [place] [address] 05/20/2021 12:00:00 AM EDT [facility]CW1 [facility] [place] [address] [facility] [place] [address] 05/16/2021 12:00:00 AM EDT [facility]CW[facility] [place] [address] [facility] [place] [address] 04/28/2021 12:00:00 AM EDT [facility]CW1 [facility] [place] [address] [facility] [place] [address] 04/22/2021 12:00:00 AM EDT eCW1 [facility]) [place] [address] [facility] [place] [address] 03/31/2021 12:00:00 AM EDT eCW1 ([facility]) Unknown [address] [facility] [place] [address] 03/31/2021 12:00:00 AM EDT eCW1 [facility]) Outpatient Attender: Shantel TATE Main Office 03/24/2021 10:15:00 AM EDT MEDENT ([facility]) Outpatient Attender: Gilda Damian 03/04 02:45:00 PM EDT MEDENT ([facility] ) Outpatient Attender: Jeffrey Jones MD Main Office 02/25/2021 11:00:00 AM EDT MEDENT ([facility]) Outpatient Attender: Todd Moulton/Swapna/Mohit/Raegan jorge 01/15/2021 11:30:00 AM EDT MEDENT ([facility]) Outpatient Attender: Gilda Damian 01/03 02:00:00 PM EDT MEDENT ([facility] ) Outpatient Attender: Gilda Damian 12/25 11:20:00 AM EDT MEDENT ([facility] ) Outpatient Attender: LAVINIA RAMIREZ 12/11/2020 12 :00:[address] [facility] Outpatient Attender: Todd Moulton/Swapna/Mohit/Raegan eindl 09/10/2020 08:30:00 AM EST MEDENT ([facility] ) Outpatient Attender: Gilda Damian 08/05 01:30:00 PM EST MEDENT ([facility] ) Outpatient Attender: CRISTOBAL HUERTAS MD 07/02/2020 12:00:00 AM E [facility] Outpatient Attender: CRISTOBAL HUERTAS MD 06/25/2020 12:00:00 AM E [facility] Outpatient Attender: LAVINIA Richardson r: Gilda Wang DO [id number] 06/05/2020 12:00:00 AM EDT - 06/05/2020 03:13:[address] [facility] Outpatient Attender: Gilda Damian 06/03 11:00:00 AM EDT MEDENT ([facility] ) Outpatient Attender: Todd Moulton/Swapna/Mohit/Raegan eindl 05/16/2020 11:00:00 AM EDT MEDENT ([facility] ) Outpatient Attender: CRISTOBAL HUERTAS MDReferrer: Gilda Wang DO 0 [id number] 05/02/2020 12:00:[address] [facility] Outpatient Attender: CRISTOBAL HUERTAS MD 04/30/2020 12:00:00 AM E [facility] Immunizations Vaccine Date Status Description Data Source(s) Shingrix Zoster Vaccine (HZV), Recombinant, Subunit, A djuvanted 01/03/2021 02:42:00 PM EDT completed MEDENT ([facility]) Note that this Td is not adsorbed. 01/03/2021 02:42:00 PM EDT compl eted MEDENT ([facility]) COVID-19 VACCINE Pfizer 10/21/2020 12:00:00 AM EST completed [facility] Vaccine Series Complete: YESThis Data wa s Submitted to [facility] Via [facility]. COVID-19 VACCINE Pfizer 09/30/2020 12:00:00 AM EST completed [facility] Vaccine Series Complete: NOThis Data was Submitted to [facility] Via [employer]. Influenza, injectable, MDCK, preservative free, puma valent 06/03/2020 11:25:00 AM EDT completed MEDENT ([facility]) Medications Medication Brand Name Start Date Product Form Dose Route Admi nistrative Instructions Pharmacy Instructions Status Indications Reaction Description Data Source(s) Docusate Sodium 50 MG / sennosides, SHELTER 8.6 MG Oral Ta blet EQ Senna-S 8.6-50 MG EQ Senna-S 8.6-50 MG 05/28/2021 12:00:00 AM EDT active EQ Senna-S 8.6-50 MG eCW1 ([facility]) Acetaminophen Extra Strength [facility] 04/22/2021 12:00:00 AM EDT active Acetaminophen Extra Strength eCW1 ([facility]) Acetaminophen Extra Strength [facility] 04/22/2021 12:00:00 AM EDT active Acetaminophen Extra Strength eCW1 ([facility]) Acetaminophen Extra Strength [facility] 04/22/2021 12:00:00 AM EDT active Acetaminophen Extra Strength eCW1 ([facility]) Acetaminophen Extra Strength [facility] 04/22/2021 12:00:00 AM EDT active Acetaminophen Extra Strength eCW1 ([facility]) Acetaminophen Extra Strength [facility] 04/22/2021 12:00:00 AM EDT active Acetaminophen Extra Strength eCW1 ([facility]) Acetaminophen Extra Strength [facility] 04/22/2021 12:00:00 AM EDT active Acetaminophen Extra Strength eCW1 ([facility]) Acetaminophen Extra Strength [facility] 04/22/2021 12:00:00 AM EDT active Acetaminophen Extra Strength eCW1 ([facility]) Acetaminophen Extra Strength [facility] 04/22/2021 12:00:00 AM EDT active Acetaminophen Extra Strength eCW1 ([facility]) Flonase Allergy Relief 50 MCG/ACT Flonase Allergy Relief 50 MCG/ACT 03/31/2021 12:00:00 AM EDT 1.0 {spray_in_each_nostril} acti ve Flonase Allergy Relief 50 MCG/ACT eCW1 ([facility]) Flonase Allergy Relief 50 MCG/ACT Flonase Allergy Relief 50 MCG/ACT 03/31/2021 12:00:00 AM EDT 1.0 {spray_in_each_nostril} acti ve Flonase Allergy Relief 50 MCG/ACT eCW1 ([facility]) Docusate Sodium 100 MG Oral Capsule Docusate Sodium 03/23/2021 1 2:00:00 AM EDT ORAL active MEDENT ( [facility]) Ondansetron 4 MG Oral Tablet [Zofran] Zofran 03/23/2021 12:00:00 AM EDT active MEDENT ([facility]) Prednisone 5 MG Oral Tablet Prednisone 03/23/2021 12:00:00 AM EDT ORAL active MEDENT ([facility]) torsemide 10 MG Oral Tablet Torsemide 03/23/2021 12:00:00 AM EDT ORAL active MEDENT ([facility]) sennosides, SHELTER 8.6 MG Oral Capsule Senna 03/23/2021 12:00:00 AM EDT ORAL active MEDENT ([facility]) Sucralfate 1000 MG Oral Tablet [Carafate] Carafate 03/23/2021 1 2:00:00 AM EDT ORAL active MEDENT ([facility]) Calcitriol 0.0005 MG Oral Capsule Calcitriol 03/23/2021 12:00:00 AM E DT ORAL active MEDENT ([facility]) Diclofenac Sodium 0.01 MG/MG Topical Gel [Voltaren] Voltaren 01/27/2021 12:00:00 AM EDT active MEDENT ([facility]) Sucralfate 1000 MG Oral Tablet Sucralfate 01/03/2021 12:00:00 AM EDT ORAL active [facility] Doxycycline Monohydrate 100 MG Oral Tablet Doxycycline Monoh ydrate 12/25/2020 12:00:00 AM EDT ORAL completed MEDENT ([facility]) Covid-19 vaccine, Unspecified 10/21/2020 12:00:00 AM EST completed [facility] ([facility]) Medication administered onsite Covid-19 vaccine, Unspecified 09/30/2020 12:00:00 AM EST completed [facility]) Medication administered onsite pantoprazole 40 MG Delayed Release Oral Tablet Pantoprazole Sodium 09/16/2020 12:00:00 AM EST ORAL active M EDENT ([facility]) pantoprazole 40 MG Delayed Release Oral Tablet Pantoprazole Sodium 06/20/2020 12:00:00 AM EDT ORAL active M EDENT ([facility]) Administration Of Flu Vaccine 06/03/2020 12:00:00 AM EDT completed [facility] Medication administered onsite Magnesium Hydroxide 80 MG/ML Oral Suspension Milk Of Magnesi a 05/22/2020 12:00:00 AM EDT ORAL active M EDENT ([facility]) Docusate Sodium 50 MG / sennosides, SHELTER 8.6 MG Oral Tablet S zheng S 05/22/2020 12:00:00 AM EDT ORAL active M EDENT ([facility]) brinzolamide 10 MG/ML Ophthalmic Suspens ion Brinzolamide 1 % Ophthalmic Suspension (AZOPT) Brinzolamide 1 % Ophthalmic Suspension (AZOPT) 020 12:00:00 AM EDT 1 [drp] Both Eyes active Place 1 drop into both eyes Two Times Daily [facility] pantoprazole 40 MG Delayed Release Oral Tablet Pantoprazole Sodium 40 MG Oral Tablet Delayed Release (PROTONIX) Pantoprazole Sodium 40 MG Oral Tablet De layed Release (PROTONIX) 04/08/2020 12:00:00 AM EDT 40 mg Oral active Take 1 tablet by mouth Two times daily before breakfast and dinner [facility] NITROFURANTOIN, MACROCRYSTALS 100 MG Oral Capsule Nitrofuran toin Macrocrystal 03/26/2020 12:00:00 AM EDT ORAL completed MEDENT ([facility]) Omeprazole 40 MG Delayed Release Oral Capsule Omeprazole 03/05/2020 12:00:00 AM EDT ORAL completed MEDENT ([facility]) Insurance Providers Payer name Policy type / Coverage type Policy ID Covered constitution party ID Covered constitution party's relationship to shook Policy Shook Plan Information [facility] [id number] Self [id number] [facility] [id number] S elf Medicare (Part B) Medicare Primary [id number] Self MEDICARE [id number] SP [id number] Medicare Natl Govt Servic Medicare Primary [id number] Self [id number] Medicare Natl Govt Servic Medicare Primary [id number] Self [id number] Medicare Natl Govt Servic Medicare Primary [id number] Self [id number] Medicare (Part B) Medicare Primary [id number] Self [id number] Medicare (Part B) Medicare Primary [id number] Self [id number] Medicare Natl Govt Servic Medicare Primary [id number] Self [id number] Medicare Natl Govt Servic Medicare Primary [id number] [id number] Self [id number] Medicare Natl Govt Servic Medicare Primary [id number] Self [id number] Medicare Natl Govt Servic Medicare Primary [id number] Self [id number] Medicare Natl Govt Servic Medicare Primary [id number] Self [id number] Medicare (Part B) Medicare Primary [id number] [id number] Self [id number] Medicare Natl Govt Servic Medicare Primary [id number] 2.840.1.384939.3.227.99.4595.28815.0 Self [id number] Medicare Natl Govt Servic Medicare Primary [id number] 2.840.1.113149.3.227.99.4595.31942.0 Self [id number] Medicare (Part B) Medicare Primary [id number] Self [id number] Medicare Natl Govt Servic Medicare Primary [id number] 2.840.1.311[id number] Self [id number] Medicare Natl Govt Servic Medicare Primary [id number] [id number] Self [id number] Medicare Natl Govt Servic Medicare Primary [id number] 2.840.1.414531.3.227.99.4595.90475.0 Self [id number] Medicare Natl Govt Servic Medicare Primary [id number] 2.840.1.715067.3.227.99.4595.56444.0 Self [id number] Medicare (Part B) Medicare Primary [id number]2.8688.0 Self [id number] Medicare Natl Govt Servic Medicare Primary [id number] 2.16.840.1.764[id number] Self [id number] Medicare (Part B) Medicare Primary [id number] 2.16.840.1.866931.3.227.99.572.8688.0 Self 12 [id number] Medicare Natl Govt Servic Medicare Primary [id number] 2.16.840.1.345119.3.227.99.4595.64399.0 Self [id number] Medicare Natl Govt Servic Medicare Primary [id number] 2.16.840.1.816238.3.227.99.4595.94481.0 Self [id number] Medicare (Part B) Medicare Primary [id number] 2.16.840.1.024348.3.227.99.572.8688.0 Self [id number] Medicare (Part B) Medicare Primary [id number] 2.16.840.1.757828.3.227.99.572.8688.0 Self [id number] Medicare Natl Govt Servic Medicare Primary [id number] 2.16.840.1.728599.3.227.99.4595.80302.0 Self [id number] Medicare Natl Govt Servic Medicare Primary [id number] Self MEDICARE A [id number] Self [id number] AARP U [id number] Self [id number] MEDICARE [id number] SP [id number] A Medicare Natl Govt Servic Medicare Primary [id number] Self [id number] Medicare Natl Govt Servic Medicare Primary [id number] Self [id number] AARP HEALTH CARE OPTIONS [id number] SP [id number] SELF PAY [employer] Health Care Options Medigap Part [id number] .[id number] Self [place] MEDICARE PART B C [id number] S [id number] MEDICARE C [id number] S [id number] AARP O [id number] S [id number] AARP HEALTH CARE OPTIONS -O/P [id number] 18 [id number] MEDICARE PART A -O/P [id number] 18 [id number] PRIVATE PAY BUFFY VEGA 18 BUFFY CONTRERAS Y TOMMY PART B C [id number] S [id number] [facility] Opt Medigap Part B [id number] Self Aarp/ Health Care Options Medigap Part B [id number] Self [id number] [facility] [facility] Opt Medigap Part B [id number] Self [id number] Medicare - NGS Medicare Primary [id number] Self 1 [id number] Aarp Medigap Part B [id number]. 57095.0 Self [id number] 12 Medicare [place] Medicare Primary [id number] Self [id number] MEDICARE [id number] SP [id number] AARP HEALTH CARE OPTIONS [id number] SP [id number] [facility] [id number] SP [id number] [facility] Options Medigap Part B [id number] Self [id number] Aar/ Health Care Options Medigap Part B [id number] Self [id number] Medicare - NGS Medicare Primary [id number] Self [id number] [facility] Health Maintenance Organization (HMO) [id number] [id number] Self [id number] [facility] Medigap Part B [id number]. 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, unspecified vein Problem 05/19/2021 12:00:00 AM EDT eCW 1 ([facility]) H40.9 90614689 Glaucoma, unspecified glaucoma t ype, unspecified laterality Problem 05/19/2021 12:00:00 AM EDT eCW1 ([facility]) Z95.0 123364916 Pacemaker Problem 05/19/2021 12:00:00 AM ED T eCW1 ([facility]) H35.30 972121761 Macular degeneration (senile) of retina, unspecified Problem 05/19/2021 12:00:00 AM EDT eCW1 ([facility]) I50.32 389135492 Chronic heart failure with preserved ejec tion fraction Problem 05/19/2021 12:00:00 AM EDT eCW1 ([facility]) I44.1 16270908 Mobitz type 2 second degree heart block P roblem 05/19/2021 12:00:00 AM EDT eCW1 ([facility]) 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 Problem 04/28/20 12:00:00 AM EDT eCW1 ([facility]) M10.9 28059318 Gout, unspecified ca use, unspecified chronicity, unspecified site Problem 04/22/2021 12:00:00 AM EDT eCW1 ([facility]) 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 Problem 03/31/2021 12:00:00 AM EDT eCW1 ([facility]) A49.8 54708675 Pseudomonas aeruginosa infection Problem 03/31/2021 12:00:00 AM EDT eCW1 ([facility]) R09.82 77865940 Postnasal drip Problem 03/31/2021 12:00:00 A M EDT eCW1 ([facility]) J18.9 053516765 Multifocal pneumonia Problem 03/31/2021 12:0 0:00 AM EDT eCW1 ([facility]) J44.9 07866765 Chronic obstructive pulmonary di sease, unspecified COPD type Problem 03/31/2021 12:00:00 AM EDT eCW1 ([facility]) 800274700 Gastroesophageal reflux disease Gastroesophageal reflux disease Problem 02/25/2021 12:00:00 AM EDT [facility] Surgeries/Procedures Procedure Description Date Indications Data Source(s) OFFICE OUTPATIENT VISIT 25 MINUTES 05/20/2021 12:00:00 AM EDT MEDMAGDALENA ([facility], ) ECG ROUTINE ECG W/LEAST 12 LDS W/I&R 03/24/2021 12:00: 00 AM EDT MEDENT ([facility]) INTERROGATION EVAL IN PERSON 1/DUAL/PREMIUM REPRESENTATIVE LEAD PM 2020 12:00:00 AM EDT MEDENT ([facility]) OFFICE OUTPATIENT VISIT 25 MINUTES 03/24/2021 12:00:00 AM EDT MEDENT ([facility]) OFFICE OUTPATIENT VISIT 25 MINUTES 03/04/2021 12:00:00 AM EDT MEDENT ([facility]) OFFICE OUTPATIENT NEW 30 MINUTES 02/25/2021 12:00:00 A M EDT MEDMAGDALENA ([facility]) OFFICE OUTPATIENT VISIT 25 MINUTES 01/15/2021 12:00:00 AM EDT MEDMAGDALENA ([facility], ) Chronic Care MGMT 20 Mins Clinical Staff Time Per Calendar M [facility] 01/06/2021 12:00:00 AM EDT MEDMAGDALENA ([facility] ) OFFICE OUTPATIENT VISIT 25 MINUTES 01/03/2021 12:00:00 AM EDT MEDMAGDALENA ([facility]) Chronic Care Management Services Ea Addl 20 Min 2020 12:00:00 AM EDT MEDMAGDALENA ([facility]) Chronic Care MGMT 20 Mins Clinical Staff Time Per Calendar M [facility] 01/01/2021 12:00:00 AM EDT MEDENT ([facility] ) OFFICE OUTPATIENT VISIT 25 MINUTES 12/25/2020 12:00:00 AM EDT MEDMAGDALENA ([facility]) INTERROGATION EVAL REMOTE </90 D 1/2/PREMIUM REPRESENTATIVE LEAD PM 12/20 12:00:00 AM EDT MEDENT ([facility]) INTERROGATION REMOTE </90 D METALIZER REVIEW 12/21/19 12:00:00 AM EDT MEDENT ([facility]) Chronic Care MGMT 20 Mins Clinical Staff Time Per Calendar M [facility] 11/06/2020 12:00:00 AM EST MEDENT ([facility] ) Chronic Care MGMT 20 Mins Clinical Staff Time Per Calendar M onth 09/30/2020 12:00:00 AM EST MEDMAGDALENA ([facility] ) Diabetic Retinal Eye Exam 08/08/2020 12:00:00 AM EST MEDENT ([facility]) INTERROGATION EVAL REMOTE </90 D 1/2/PREMIUM REPRESENTATIVE LEAD PM 06/19 12:00:00 AM EDT MEDENT ([facility]) INTERROGATION REMOTE </90 D METALIZER REVIEW 06/19/20 12:00:00 AM EDT MEDENT ([facility]) Results ID Date Data Source AFB SMEAR & CULTURE 04/28/2021 12:00:00 AM EDT eCW1 ([facility]) Name Value Range Interpretation Code Description Data Joan rce(s) Supporting Document(s) AFB SMEAR & CULTURE eCW1 ([facility]) ID Date Data Source [id number] 03/20/2021 04:49:00 PM EDT [facility] Name Value Range Interpretation Code Description Data Joan rce(s) Supporting Document(s) SARS coronavirus 2 RNA [Presence] in Res piratory specimen by EFRA with probe detection NEGATIVE [facility] This lab was ordered by [facility] a nd reported by [facility]. ID Date Data Source [id number] 03/13/2021 07:53:00 PM EDT [facility] Name Value Range Interpretation Code Description Data Joan rce(s) Supporting Document(s) SARS-CoV-2 (COVID 19) NEGATIVE - SARS-CoV-2 (COVID19) [facility] This lab was ordered by [facility] a nd reported by [facility]. ID Date Data Source [id number] 03/11/2021 11:01:00 AM EDT [facility] Name Value Range Interpretation Code Description Data Joan rce(s) Supporting Document(s) SARS coronavirus 2 RNA [Presence] in Res piratory specimen by EFRA with probe detection NEGATIVE [facility] This lab was ordered by [facility] a nd reported by [facility]. ID Date Data Source [id number] 03/07/2021 01:25:00 PM EDT [facility] Name Value Range Interpretation Code Description Data Joan rce(s) Supporting Document(s) SARS-CoV-2 (COVID 19) NEGATIVE - SARS-CoV-2 (COVID19) [facility] This lab was ordered by [facility] a nd reported by [facility]. ID Date Data Source [id number] 03/07/2021 01:22:00 PM EDT MEDENT ([facility]) Name Value Range Interpretation Code Description Data Joan rce(s) Supporting Document(s) Laboratory test finding (navigational concept) 7.331 units 7.350-7.45 0 MEDENT ([facility]) Laboratory test finding (navigational concept) 37.3 MMHG 35.0-45.0 MEDENT ([facility]) Laboratory test finding (navigational concept) 21.0 mmol/L 23.0-27.0 MEDENT ([facility]) Laboratory test finding (navigational concept) 104.0 MMHG 80-105 MEDENT ([facility]) Laboratory test finding (navigational concept) 19.7 mmol/L 22.0-26.0 MEDENT ([facility]) Laboratory test finding (navigational concept) -6.0 mmol/L MEDENT ([facility]) Laboratory test finding (navigational concept) 98 % 95-98 MED[facility] ([facility]) ID Date Data Source [id number] 03/04/2021 02:54:00 PM EDT MEDENT ([facility]) Name Value Range Interpretation Code Description Data Joan rce(s) Supporting Document(s) Erythrocytes [#/volume] in Blood by Automated count 3.45 x10*6/UL 4.2 0-6.30 [facility] ([facility]) Leukocytes [#/volume] in Blood by Automated count 8.8 x10*3/UL 4.1-10 .9 [facility] ([facility]) Hemoglobin [Mass/volume] in Blood 10.7 g/dL 12.0-18.0 [facility] ([facility]) NOTE: RESULT VERIFIED. Hematocrit [Volume Fraction] of Blood by Automated count 32.4 % 3 7.0-51.0 [facility] ([facility]) MCV 93.9 fL 80.0-97.0 [facility] MCH 31.0 pg 26.0-32.0 [facility] ([facility]) Erythrocyte distribution width [Ratio] by Automated count 14.4 % 11.6-13.7 [facility] ([facility]) MCHC 33.0 g/dL 31.0-38.0 [facility] ([facility]) MPV 7.0 FL 7.8-11.0 [facility] ([facility]) Platelets [#/volume] in Blood by Automated count 268 x10*3/UL 140-440 [facility] ([facility]) Mid % 6.8 % 1.7-9.3 [facility] ([facility]) Lymph % 24.9 % 10.0-58.5 [facility] ([facility]) Lymph # 2.2 x10*3/UL 0.6-4.1 [facility] ([facility]) Mid # 0.6 x10*3/UL 0.1-0.6 [facility] ([facility]) Neut % 68.3 % 37.0-92.0 [facility] ([facility]) Neut # 6.0 x10*3/UL 2.0-7.8 [facility] ([facility]) ID Date Data Source [id number] 03/04/2021 02:54:00 PM EDT [facility] ([facility]) Name Value Range Interpretation Code Description Data Joan rce(s) Supporting Document(s) Glucose [Mass/volume] in Serum or Plasma 118 mg/dL 74-99 [facility] ([facility]) 100-125 mg/dL PRE-DIABETES/FASTING >126 mg/dL DIABETES/FASTING Creatinine 1.5 mg/dL 0.6-1.3 [facility] ([facility]) Urea nitrogen [Mass/volume] in Serum or Plasma 25 mg/dL 7-18 [facility] ([facility]) Sodium [Moles/volume] in Serum or Plasma 139 meq/L 136-145 [facility] ([facility]) Chloride [Moles/volume] in Serum or Plasma 103 meq/L 98-107 [facility] ([facility]) Potassium [Moles/volume] in Serum or Plasma 4.5 meq/L 3.5-5.1 [facility] ([facility]) Calcium [Mass/volume] in Serum or Plasma 9.8 mg/dL 8.5-10.1 [facility] ([facility]) Carbon dioxide, total [Moles/volume] in Serum or Plasma 28 meq/L 21 -32 [facility] ([facility]) Total Bilirubin 0.3 mg/dL 0.2-1.0 [facility] ([facility]) Alkaline phosphatase isoenzyme [Units/volume] in Serum or Pl asma 90 mg/dL 46-116 [facility] ([facility]) Alanine aminotransferase [Enzymatic activity/volume] in Seru m or Plasma 12 U/L 12-78 [facility] ([facility]) Aspartate aminotransferase [Enzymatic activity/volume] in Serum or Plasma 10 U/L 15-37 [facility] ([facility] ) A/G Ratio 0.82 CALC 1.00-1.90 [facility]) Proteinase 3 Ab [Units/volume] in Serum 6.9 g/dL 6.4-8.2 [facility] ([facility]) Albumin [Mass/volume] in Serum or Plasma 3.1 g/dL 3.4-5.0 [facility] ([facility]) Glomerular filtration rate/1.73 sq M pre dicted among non-blacks [Volume Rate/Area] in Serum or Plasma by Creatinine-based formula (MDRD) 33 mL/min [facility] ([facility]) Glomerular filtration rate/1.73 sq M pre dicted among blacks [Volume Rate/Area] in Serum or Plasma by Creatinine-based formula (MDRD) 40 mL/min [facility] ([facility]) <content>CHRONIC KIDNEY DISEASE STAGING PER NKF</content>
<content></content>
<content>STAGE I & II GFR >= 60 NORMAL TO MILDLY DECREASED</content>
<content>STAGE III GFR 30-59 MODERATELY DECREASED</content>
<content>STAGE IV GFR 15-29 SEVERELY DECREASED</content>
<content>STAGE V GFR <15 VERY LITTLE GFR LEFT</content>
<content>ESRD GFR <15 ON FIELD INSTRUCTOR</content>
<content></content> ID Date Data Source [id number] 02/17/2021 11:11:00 AM EDT [facility]) Name Value Range Interpretation Code Description Data Joan rce(s) Supporting Document(s) Magnesium Level 1.6 1.8-2.4 [facility] ([facility]) ID Date Data Source [id number] 02/17/2021 11:11:00 AM EDT [facility] ([facility]) Name Value Range Interpretation Code Description Data Joan rce(s) Supporting Document(s) Alanine aminotransferase [Enzymatic activity/volume] in Serum or Pl asma 18 [facility] ([facility]) Albumin [Mass/volume] in Serum or Plasma 2.5 [facility] ([facility]) Calcium [Mass/volume] in Serum or Plasma 8.8 [facility] ([facility]) Carbon dioxide, total [Moles/volume] in Serum or Plasma 16 [facility] ([facility]) Potassium [Moles/volume] in Serum or Plasma 3.6 [facility] ([facility]) Alkaline phosphatase [Enzymatic activity/volume] in Serum or Plasma 7 3 [facility] ([facility]) Chloride [Moles/volume] in Serum or Plasma 117 [facility] ([facility]) Protein [Mass/volume] in Serum or Plasma 5.0 [facility] ([facility]) Sodium 144 [facility] ([facility]) Aspartate aminotransferase [Enzymatic activity/volume] in Serum or Plasma 12 [facility] ([facility]) Urea nitrogen [Mass/volume] in Serum or Plasma 35 [facility] ([facility]) Glucose 95 83-110 [facility] ([facility]) Creatinine For GFR 1.36 [facility] ([facility]) ID Date Data Source [id number] 02/17/2021 11:11:00 AM EDT [facility] ([facility]) Name Value Range Interpretation Code Description Data Joan rce(s) Supporting Document(s) Red Blood Count 2.82 4.00-5.40 [facility] ([facility]) White Blood Count 12.8 5.0-10.0 [facility] ([facility]) Platelets 257 172-450 [facility] Hemoglobin 8.6 [facility] ([facility]) Hematocrit 27.4 [facility] ([facility]) ID Date Data Source [id number] 02/17/2021 08:07:00 AM EDT [facility] Name Value Range Interpretation Code Description Data Joan rce(s) Supporting Document(s) SARS coronavirus 2 RNA [Presence] in Res piratory specimen by EFRA with probe detection NEGATIVE [facility] This lab was ordered by [facility] a nd reported by [facility]. ID Date Data Source [id number] 02/15/2021 11:40:00 AM EDT [facility] Name Value Range Interpretation Code Description Data Joan rce(s) Supporting Document(s) SARS-CoV-2 (COVID 19) NEGATIVE - SARS-[facility] (COVID19) [facility] This lab was ordered by [facility] a nd reported by [facility]. ID Date Data Source [id number] 02/13/2021 10:50:00 AM EDT [facility] ([facility]) Name Value Range Interpretation Code Description Data Joan rce(s) Supporting Document(s) Lactate [Mass/volume] in Serum or Plasma 1.3 mmol/L 0.4-2.0 [facility] ([facility]) Y/N query for Sepsis Lactate Rule: Y ID Date Data Source [id number] 02/13/2021 10:49:00 AM EDT [facility] ([facility]) Name Value Range Interpretation Code Description Data Joan rce(s) Supporting Document(s) Influenza A Amplification Laboratory test result [facility] ([facility]) Negative results do not preclude influen za or RSV virus infection and should not be used as the sole basis for treatment or other patient management decisions. Influenza B Amplification Laboratory test result [facility] ([facility]) Negative results do not preclude influen za or RSV virus infection and should not be used as the sole basis for treatment or other patient management decisions. RSV Amplification Laboratory test result [facility] ([facility]) Negative results do not preclude influen za or RSV virus infection and should not be used as the sole basis for treatment or other patient management decisions. Laboratory test finding (navigational concept) Laboratory test result [facility] ([facility]) A false negative result may occur [...] pathogens. DISCLAIMER: Testing was performed using the [employer] SARS-CoV-2 test. This test was developed and its performance characteristics determined by [employer]. This test has not been FDA cleared [...] or revoked sooner. ID Date Data Source [id number] 02/13/2021 10:49:00 AM EDT [facility] Name Value Range Interpretation Code Description Data Joan rce(s) Supporting Document(s) SARS coronavirus 2 RNA [Presence] in Res piratory specimen by EFRA with probe detection NEGATIVE [facility] This lab was ordered by [facility] a nd reported by [facility]. ID Date Data Source [id number] 02/13/2021 09:28:00 AM EDT [facility] Name Value Range Interpretation Code Description Data Joan rce(s) Supporting Document(s) Laboratory test finding (navigational concept) 34.0 % 38.0-51.0 [facility] ([facility]) Laboratory test finding (navigational concept) 146 mg/dL 70-105 [facility] ([facility]) Laboratory test finding (navigational concept) 140 meq/L 136-145 [facility] ([facility]) Laboratory test finding (navigational concept) 4.1 meq/L 3.5-5.1 [facility] ([facility]) Laboratory test finding (navigational concept) 5.5 mg/dL 4.5-5.3 [facility] ([facility]) Laboratory test finding (navigational concept) 113 meq/L 98-109 [facility] ([facility]) Laboratory test finding (navigational concept) 19.0 MM/L 23.0-27.0 [facility] ([facility]) Laboratory test finding (navigational concept) 37 mg/dL 8-26 [facility] ([facility]) Laboratory test finding (navigational concept) 1.6 mg/dL 0.6-1.3 [facility] ([facility]) ID Date Data Source [id number] 02/13/2021 09:20:00 AM EDT [facility] ([facility]) Name Value Range Interpretation Code Description Data Joan rce(s) Supporting Document(s) Lipoprotein lipase [Enzymatic activity/volume] in Serum or Plasm a 45 U/L 73-393 [facility] ([facility]) ID Date Data Source [id number] 02/13/2021 09:20:00 AM EDT [facility] ([facility]) Name Value Range Interpretation Code Description Data Joan rce(s) Supporting Document(s) Ast/Sgot 8 U/L 7-37 [facility] ([facility]) Alt/SGPT 11 U/L 12-78 [facility] ([facility]) Bilirubin,Total 0.4 mg/dL 0.2-1.0 [facility] ([facility]) Alkaline Phosphatase 100 U/L 45-117 [facility] ([facility]) Total Protein 5.8 GM/DL 6.4-8.2 [facility] ([facility]) Bilirubin,Direct 0.1 mg/dL 0.0-0.2 [facility] ([facility]) Albumin 2.8 GM/DL 3.2-5.2 [facility] ([facility]) Albumin/Globulin Ratio 0.9 1.2-2.2 [facility] ([facility]) ID Date Data Source [id number] 02/13/2021 09:20:00 AM EDT [facility] Name Value Range Interpretation Code Description Data Joan rce(s) Supporting Document(s) CPK Creatine Phosphokinase 50 U/L 26-192 [facility] ([facility]) MB/CK Relative Index 2.00 [facility] ([facility]) <content>DIAGNOSIS CRITERIA</content>
<content>MMB ng/ml Relative Index (RI)</content>
<content>NON-AMI < or = 5 N/A</content>
<content>OVALLES ZONE > 5 < or = 4</content>
<content>AMI > 5 > 4</content>
<content></content> CK-MB Value Mass Laboratory test result [facility] ([facility]) [facility]rop[facility] <content>Troponin I Reference Interval f or Siemens [place] LOCI:</content>
<content></content>
<content>99th Percentile= 0.00-0.045 ng/ml</content>
<content></content>
<content>Risk Stratification:</content>
<content><= 0.10 ng/ml Decreased Risk for Adverse Clinical</content>
<content>Events.</content>
<content>0.10-1.50 ng/ml Increased Risk for Adverse Clinical</content>
<content>Events. Evaluation of additional</content>
<content>criterion and/or repeat testing in 2-6</content>
<content>hours is suggested to rule out myocardial</content>
<content>damage.</content>
<content>>= 1.50 ng/ml Indicative of Myocardial Injury.</content>
<content></content> ID Date Data Source [id number] 02/13/2021 09:20:00 AM EDT [facility] Name Value Range Interpretation Code Description Data Joan rce(s) Supporting Document(s) Prothrombin Time 17.9 s 12.5-14.3 [facility] ([facility]) Inr 1.44 [facility] ([facility]) THERAPUTIC HUMAN INR VALUES INDICATIONS NORMAL RANGES PROPHYLAXIS/TREATMENT OF: VENOUS THROMBOSIS 2.0-3.0 PULMONARY EMBOLISM 2.0-3.0 PREVENTION OF SYSTEMIC EMBOLISM FROM: TISSUE HEART VALVES 2.0-3.0 ACUTE MYOCARDIAL INFARCTION 2.0-3.0 VALVULAR HEART DISEASE 2.0-3.0 ATRIAL FIBRILLATION 2.0-3.0 MECHANICAL VALVES(HIGH RISK) 2.5-3.5 RECURRENT MYOCARDIAL INFARCTION 2.5-3.5 ID Date Data Source [id number] 02/13/2021 09:20:00 AM EDT [facility] ([facility]) Name Value Range Interpretation Code Description Data Joan rce(s) Supporting Document(s) White Blood Count 15.5 10 4.0-10.0 [facility] ([facility]) Red Blood Count 3.55 10 4.00-5.40 [facility] ([facility]) Hemoglobin 11.2 g/dL 12.0-15.5 [facility] ([facility]) Hematocrit 35.5 % 36.0-47.0 [facility] ([facility]) Mean Corpuscular Volume 100.0 fl 80.0-96.0 [facility] ([facility]) Mean Corpuscular HGB Conc 31.5 g/dL 32.0-36.5 [facility] ([facility]) Mean Corpuscular Hemoglobin 31.5 pg 27.0-33.0 [facility] ([facility]) Red Cell Distribution Width 13.2 % 11.5-14.5 [facility] ([facility]) Platelet Count, Automated 240 10 150-450 [facility] ([facility]) Lymph % 5.5 % 24.0-44.0 [facility] ([facility]) Neutrophils % 86.1 % 36.0-66.0 [facility] ([facility]) [place] % 7.5 % 2.0-8.0 [facility] ([facility]) Baso % 0.1 % 0.0-1.0 [facility] Eos % 0.3 % 0.0-3.0 [facility] Immature Granulocyte % 0.5 % 0-3.0 [facility] ([facility]) Nucleated Red Blood Cell % 0.0 % 0-0 [facility] ([facility]) Neutrophils # 13.3 10 1.5-8.5 [facility] ([facility]) Lymph # 0.9 10 1.5-5.0 [facility] Eos # 0.0 10 0.0-0.5 [facility] [place] # 1.2 10 0.0-0.8 [facility] ([facility]) Baso # 0.0 10 0.0-0.2 [facility] ([facility]) ID Date Data Source [id number] 02/10/2021 12:00:00 AM EDT [facility] Name Value Range Interpretation Code Description Data Joan rce(s) Supporting Document(s) SARS-CoV2 Rapid Antigen Negative [facility] This lab was ordered by [facility] and reported by [facility]. ID Date Data Source [id number] 01/03/2021 01:26:00 PM EDT [facility] ([facility]) Name Value Range Interpretation Code Description Data Joan rce(s) Supporting Document(s) Ferritin [Mass/volume] in Serum or Plasma 199 ng/mL 8-252 [facility] ([facility]) ID Date Data Source [id number] 01/03/2021 01:26:00 PM EDT [facility] ([facility]) Name Value Range Interpretation Code Description Data Joan rce(s) Supporting Document(s) Total Iron Binding Capacity 262 ug/dL 250-450 [facility] ([facility]) Iron (Fe) 61 ug/dL 50-170 [facility] ([facility]) Percent Saturation 23.3 % 13.2-45.0 [facility] ([facility]) ID Date Data Source [id number] 01/03/2021 01:24:00 PM EDT [facility] ([facility]) Name Value Range Interpretation Code Description Data Joan rce(s) Supporting Document(s) Erythrocytes [#/volume] in Blood by Automated count 3.78 x10*6/UL 4.2 0-6.30 [facility] ([facility]) Leukocytes [#/volume] in Blood by Automated count 10.5 x10*3/UL 4.1-1 0.9 [facility] ([facility]) Hemoglobin [Mass/volume] in Blood 12.5 g/dL 12.0-18.0 [facility] Hematocrit [Volume Fraction] of Blood by Automated count 36.6 % 3 7.0-51.0 [facility] ([facility]) MCH 33.0 pg 26.0-32.0 [facility] ([facility]) MCV 96.9 fL 80.0-97.0 [facility] ([facility]) MCHC 34.0 g/dL 31.0-38.0 [facility] ([facility]) Erythrocyte distribution width [Ratio] by Automated count 13.5 % 11.6-13.7 [facility] ([facility]) Platelets [#/volume] in Blood by Automated count 338 x10*3/UL 140-440 [facility] ([facility]) MPV 7.7 FL 7.8-11.0 [facility] ([facility]) Mid % 4.6 % 1.7-9.3 [facility] ([facility]) Lymph % 17.8 % 10.0-58.5 [facility] ([facility]) Neut % 77.6 % 37.0-92.0 [facility] ([facility]) Lymph # 1.8 x10*3/UL 0.6-4.1 [facility] ([facility]) Mid # 0.6 x10*3/UL 0.1-0.6 [facility] ([facility]) Neut # 8.1 x10*3/UL 2.0-7.8 [facility] ([facility]) ID Date Data Source [id number] 01/03/2021 01:24:00 PM EDT [facility] ([facility]) Name Value Range Interpretation Code Description Data Joan rce(s) Supporting Document(s) Hemoglobin A1c/Hemoglobin.total in Blood 6.6 % [facility] Lab Result Notes: Pre-Diabetes 5.7 - 6.4 % Diabetes = or > 6.5% Glucose mean value [Mass/volume] in Blood Estimated fr om glycated hemoglobin 143 mg/dL 60-110 [facility] ID Date Data Source [id number] 01/03/2021 01:24:00 PM EDT [facility] ([facility]) Name Value Range Interpretation Code Description Data Joan rce(s) Supporting Document(s) Urea nitrogen [Mass/volume] in Serum or Plasma 48 mg/dL 7-18 [facility] ([facility]) Glucose [Mass/volume] in Serum or Plasma 144 mg/dL 74-99 [facility] ([facility]) 100-125 mg/dL PRE-DIABETES/FASTING >126 mg/dL DIABETES/FASTING Sodium [Moles/volume] in Serum or Plasma 140 meq/L 136-145 [facility] ([facility]) Creatinine 1.4 mg/dL 0.6-1.3 [facility] Chloride [Moles/volume] in Serum or Plasma 108 meq/L 98-107 [facility] ([facility]) Potassium [Moles/volume] in Serum or Plasma 3.8 meq/L 3.5-5.1 [facility] ([facility]) Carbon dioxide, total [Moles/volume] in Serum or Plasma 20 meq/L 21 -32 [facility] ([facility]) Calcium [Mass/volume] in Serum or Plasma 9.3 mg/dL 8.5-10.1 [facility] ([facility]) Alkaline phosphatase isoenzyme [Units/volume] in Serum or Pl asma 124 mg/dL 46-116 [facility] ([facility]) Total Bilirubin 0.3 mg/dL 0.2-1.0 [facility] ([facility]) Aspartate aminotransferase [Enzymatic activity/volume] in Se rum or Plasma 8 U/L 15-37 [facility] ([facility]) Albumin [Mass/volume] in Serum or Plasma 3.2 g/dL 3.4-5.0 [facility] ([facility]) Alanine aminotransferase [Enzymatic activity/volume] in Seru m or Plasma 16 U/L 12-78 [facility] ([facility]) Proteinase 3 Ab [Units/volume] in Serum 7.0 g/dL 6.4-8.2 [facility] ([facility]) A/G Ratio 0.84 CALC 1.00-1.90 [facility] Glomerular filtration rate/1.73 sq M pre dicted among non-blacks [Volume Rate/Area] in Serum or Plasma by Creatinine-based formula (MDRD) 36 mL/min [facility] ([facility]) Glomerular filtration rate/1.73 sq M pre dicted among blacks [Volume Rate/Area] in Serum or Plasma by Creatinine-based formula (MDRD) 44 mL/min [facility] ([facility]) <content>CHRONIC KIDNEY DISEASE STAGING PER NKF</content>
<content></content>
<content>STAGE I & II GFR >= 60 NORMAL TO MILDLY DECREASED</content>
<content>STAGE III GFR 30-59 MODERATELY DECREASED</content>
<content>STAGE IV GFR 15-29 SEVERELY DECREASED</content>
<content>STAGE V GFR <15 VERY LITTLE GFR LEFT</content>
<content>ESRD GFR <15 ON FIELD INSTRUCTOR</content>
<content></content> ID Date Data Source [id number] 12/25/2020 11:28:00 AM EDT [facility] ([facility]) Name Value Range Interpretation Code Description Data Joan rce(s) Supporting Document(s) Urea nitrogen [Mass/volume] in Serum or Plasma 33 mg/dL 7-18 [facility] ([facility]) Glucose [Mass/volume] in Serum or Plasma 116 mg/dL 74-99 [facility] ([facility]) 100-125 mg/dL PRE-DIABETES/FASTING >126 mg/dL DIABETES/FASTING Creatinine 1.5 mg/dL 0.6-1.3 [facility] ([facility]) Sodium [Moles/volume] in Serum or Plasma 141 meq/L 136-145 [facility] ([facility]) Potassium [Moles/volume] in Serum or Plasma 4.9 meq/L 3.5-5.1 [facility] ([facility]) Carbon dioxide, total [Moles/volume] in Serum or Plasma 23 meq/L 21 -32 [facility] ([facility]) Chloride [Moles/volume] in Serum or Plasma 108 meq/L 98-107 [facility] ([facility]) Calcium [Mass/volume] in Serum or Plasma 9.2 mg/dL 8.5-10.1 [facility] ([facility]) Glomerular filtration rate/1.73 sq M pre dicted among blacks [Volume Rate/Area] in Serum or Plasma by Creatinine-based formula (MDRD) 40 mL/min [facility] <content>CHRONIC KIDNEY DISEASE STAGING PER NKF</content>
<content></content>
<content>STAGE I & II GFR >= 60 NORMAL TO MILDLY DECREASED</content>
<content>STAGE III GFR 30-59 MODERATELY DECREASED</content>
<content>STAGE IV GFR 15-29 SEVERELY DECREASED</content>
<content>STAGE V GFR <15 VERY LITTLE GFR LEFT</content>
<content>ESRD GFR <15 ON FIELD INSTRUCTOR</content>
<content></content> Glomerular filtration rate/1.73 sq M pre dicted among non-blacks [Volume Rate/Area] in Serum or Plasma by Creatinine-based formula (MDRD) 33 mL/min [facility] ([facility] ID Date Data Source [id number] 12/25/2020 11:28:00 AM EDT [facility] Name Value Range Interpretation Code Description Data Joan rce(s) Supporting Document(s) Leukocytes [#/volume] in Blood by Automated count 8.6 x10*3/UL 4.1-10 .9 [facility] ([facility] Hemoglobin [Mass/volume] in Blood 12.2 g/dL 12.0-18.0 [facility] ([facility]) Erythrocytes [#/volume] in Blood by Automated count 3.73 x10*6/UL 4.2 0-6.30 [facility] ([facility]) Hematocrit [Volume Fraction] of Blood by Automated count 35.9 % 3 7.0-51.0 [facility] ([facility]) MCV 96.2 fL 80.0-97.0 [facility] ([facility]) MCH 32.6 pg 26.0-32.0 [facility] ([facility]) Erythrocyte distribution width [Ratio] by Automated count 13.4 % 11.6-13.7 [facility] ([facility]) MCHC 33.9 g/dL 31.0-38.0 [facility] ([facility]) Platelets [#/volume] in Blood by Automated count 362 x10*3/UL 140-440 [facility] ([facility]) MPV 7.5 FL 7.8-11.0 [facility] ([facility]) Neut % 70.5 % 37.0-92.0 [facility] ([facility]) Mid % 5.5 % 1.7-9.3 [facility] ([facility]) Lymph % 24.0 % 10.0-58.5 [facility] ([facility]) Lymph # 2.0 x10*3/UL 0.6-4.1 [facility] ([facility]) Mid # 0.6 x10*3/UL 0.1-0.6 [facility] ([facility]) Neut # 6.0 x10*3/UL 2.0-7.8 [facility] ([facility]) ID Date Data Source [id number] 11/30/2020 12:58:00 PM EDT [facility] ([facility]) Name Value Range Interpretation Code Description Data Joan rce(s) Supporting Document(s) Color, Urine Laboratory test result MEDE NT ([facility]) Appearance, Urine Laboratory test result [facility] ([facility]) PH,Urine 5.0 units 5.0-9.0 [facility]) Specific [place] Urine Auto 1.012 1.002-1.035 [facility] ([facility] Glucose, Urine (Ua) Auto Laboratory test result [facility] ([facility]) Protein, Urine Auto Laboratory test result [facility] ([facility]) Ketone, Urine Auto Laboratory test result [facility] Urobilinogen, Urine Auto 0.2 mg/dL 0.0-2.0 MEDEN T ([facility]) Bilirubin, Urine Auto Laboratory test result [facility] ([facility]) Nitrite, Urine Auto Laboratory test result [facility] ([facility]) Leukocyte Esterase, Urine Auto Laboratory test result [facility] ([facility]) Blood, Urine Blood Laboratory test result [facility] ([facility]) WBC, Urine Auto Laboratory test result 0-3 M EDENT ([facility]) RBC, Urine Auto 4 /HPF 0-3 [facility] ([facility] Bacteria, Urine Auto Laboratory test result [facility] ([facility] Squamous Epithelial Cell Ur AU 16 /HPF 0-6 [facility] ([facility] Hyaline Cast, Urine Auto 0 /LPF 0-1 MEDEN T ([facility]) Mucus, Urine Laboratory test result MEDE NT ([facility] ID Date Data Source [id number] 11/30/2020 10:59:00 AM EDT [facility] ([facility] Name Value Range Interpretation Code Description Data Joan rce(s) Supporting Document(s) Parathyrin.intact [Mass/volume] in Serum or Plasma 50.3 pg/mL 18.5-88 .0 [facility] Urate [Mass/volume] in Serum or Plasma 5.8 mg/dL 2.6-6.0 [facility] ([facility] ID Date Data Source [id number] 11/30/2020 10:59:00 AM EDT [facility] ([facility] Name Value Range Interpretation Code Description Data Joan rce(s) Supporting Document(s) Blood Urea Nitrogen 43 mg/dL 7-18 [facility] ([facility]) Glucose, Fasting 132 mg/dL 70-100 [facility] ([facility]) Creatinine For GFR 1.49 mg/dL 0.55-1.30 [facility] ([facility]) Glomerular Filtration Rate 35.6 MED ENT ([facility]) <content>Units are mL/min/1.73 m2</content>
<content></content>
<content>Chronic Kidney Disease Staging per NKF:</content>
<content></content>
<content>Stage I & II GFR >=60 Normal to Mildly Decreased</content>
<content>Stage III GFR 30- 59 Moderately Decreased</content>
<content>Stage IV GFR 15-29 Severely Decreased</content>
<content>Stage V GFR <15 Very Little GFR Left</content>
<content>ESRD GFR <15 on FIELD INSTRUCTOR</content>
<content></content> Chloride Level 115 meq/L 98-107 [facility] ([facility]) Potassium Serum 4.4 meq/L 3.5-5.1 [facility] ([facility]) Sodium Level 142 meq/L 136-145 [facility] ([facility]) Anion Gap 6 meq/L 8-16 [facility] ([facility]) Carbon Dioxide Level 21 meq/L 21-32 [facility] ([facility]) Phosphorus Level 3.2 mg/dL 2.5-4.9 [facility] ([facility]) Calcium Level 8.9 mg/dL 8.8-10.2 [facility] ([facility]) Albumin 3.3 GM/DL 3.2-5.2 [facility] ([facility]) ID Date Data Source [id number] 11/30/2020 10:59:00 AM EDT [facility] ([facility]) Name Value Range Interpretation Code Description Data Joan rce(s) Supporting Document(s) Hemoglobin 11.9 g/dL 12.0-15.5 [facility] ([facility]) White Blood Count 9.4 10 4.0-10.0 [facility] ([facility]) --- 12/02/20 1339 --- WBC previously reported as: 9.4 10^3/uL --- 12/02/20 1340 --- WBC previously reported as: 10^3/uL --- 12/02/20 1339 --- WBC previously reported as: 9.4 10^3/uL Red Blood Count 3.60 10 4.00-5.40 [facility] ([facility]) Mean Corpuscular Volume 102.5 fl 80.0-96.0 [facility] ([facility]) Hematocrit 36.9 % 36.0-47.0 [facility] ([facility]) Mean Corpuscular Hemoglobin 33.1 pg 27.0-33.0 ME DENT ([facility]) Mean Corpuscular HGB Conc 32.2 g/dL 32.0-36.5 MEDE NT ([facility]) Platelet Count, Automated 246 10 150-450 MEDE NT ([facility]) Red Cell Distribution Width 13.8 % 11.5-14.5 ME DENT ([facility]) [place] % 7.8 % 2.0-8.0 [facility] ([facility]) Neutrophils % 65.6 % 36.0-66.0 [facility] Lymph % 24.7 % 24.0-44.0 [facility] ([facility]) Eos % 1.1 % 0.0-3.0 [facility] ([facility]) Baso % 0.6 % 0.0-1.0 [facility] ([facility]) Immature Granulocyte % 0.2 % 0-3.0 [facility] ([facility]) Nucleated Red Blood Cell % 0.0 % 0-0 MED ENT ([facility]) Lymph # 2.3 10 1.5-5.0 [facility] ([facility]) Neutrophils # 6.2 10 1.5-8.5 [facility] ([facility]) [place] # 0.7 10 0.0-0.8 [facility] ([facility]) Eos # 0.1 10 0.0-0.5 [facility] ([facility]) Baso # 0.1 10 0.0-0.2 [facility]) ID Date Data Source [id number] 10/21/2020 10:00:00 AM EST [facility] Name Value Range Interpretation Code Description Data Joan rce(s) Supporting Document(s) SARS coronavirus 2 RNA Not Detected [facility] [place] This lab was ordered by [facility] and reported by [facility]. ID Date Data Source [id number] 10/14/2020 06:20:00 AM EST [facility] Name Value Range Interpretation Code Description Data Joan rce(s) Supporting Document(s) SARS coronavirus 2 RNA Not Detected [facility] [place] This lab was ordered by [facility] and reported by [facility]. ID Date Data Source [id number] 10/07/2020 09:00:00 AM EST [facility] Name Value Range Interpretation Code Description Data Joan rce(s) Supporting Document(s) SARS coronavirus 2 RNA Not Detected [facility] [place] This lab was ordered by [facility] and reported by [facility]. ID Date Data Source [id number] 09/30/2020 01:00:00 PM EST [facility] Name Value Range Interpretation Code Description Data Joan rce(s) Supporting Document(s) SARS coronavirus 2 RNA Not Detected [facility] [place] This lab was ordered by [facility] and reported by [facility]. ID Date Data Source [id number] 09/23/2020 12:00:00 PM EST [facility] Name Value Range Interpretation Code Description Data Joan rce(s) Supporting Document(s) SARS coronavirus 2 RNA Not Detected [facility] [place] This lab was ordered by [facility] and reported by [facility]. ID Date Data Source [id number] 09/16/2020 06:00:00 AM EST [facility] Name Value Range Interpretation Code Description Data Joan rce(s) Supporting Document(s) SARS coronavirus 2 RNA Not Detected [facility] [place] This lab was ordered by [facility] and reported by [facility]. ID Date Data Source [id number] 09/09/2020 09:00:00 AM EST [facility] Name Value Range Interpretation Code Description Data Joan rce(s) Supporting Document(s) SARS coronavirus 2 RNA [facility] This lab was ordered by [facility] and reported by [facility]. ID Date Data Source [id number] 09/02/2020 10:00:00 AM EST [facility] Name Value Range Interpretation Code Description Data Joan rce(s) Supporting Document(s) SARS coronavirus 2 RNA [facility] This lab was ordered by [facility] and reported by [facility]. ID Date Data Source [id number] 08/26/2020 10:00:00 AM EST [facility] Name Value Range Interpretation Code Description Data Joan rce(s) Supporting Document(s) SARS coronavirus 2 RNA [facility] This lab was ordered by [facility] and reported by [facility]. ID Date Data Source [id number] 08/21/2020 11:58:00 AM EST [facility] Name Value Range Interpretation Code Description Data Joan rce(s) Supporting Document(s) SARS coronavirus 2 RNA [facility] This lab was ordered by [facility] and reported by [facility]. ID Date Data Source [id number] 08/16/2020 02:46:00 PM EST [facility] Name Value Range Interpretation Code Description Data Joan rce(s) Supporting Document(s) SARS coronavirus 2 RNA [facility] This lab was ordered by [facility] and reported by [facility]. ID Date Data Source [id number] 08/12/2020 09:20:00 AM EST [facility] ([facility] Name Value Range Interpretation Code Description Data Joan rce(s) Supporting Document(s) White Blood Count 9.2 4.0-10.0 [facility] ([facility]) Hemoglobin 10.0 [facility] ([facility]) Platelets 334 150-450 [facility] Red Blood Count 3.47 4.00-5.40 [facility] ([facility]) Hematocrit 31.8 [facility] ([facility]) ID Date Data Source [id number] 08/05/2020 02:17:00 PM EST [facility] ([facility]) Name Value Range Interpretation Code Description Data Joan rce(s) Supporting Document(s) Glucose [Mass/volume] in Serum or Plasma 146 mg/dL 74-99 [facility] ([facility]) 100-125 mg/dL PRE-DIABETES/FASTING >126 mg/dL DIABETES/FASTING Urea nitrogen [Mass/volume] in Serum or Plasma 49 mg/dL 7-18 [facility] ([facility]) NOTE: BUN,CREAT VERIFIED Sodium [Moles/volume] in Serum or Plasma 142 meq/L 136-145 [facility] ([facility]) Creatinine 1.9 mg/dL 0.6-1.3 [facility] ([facility]) Chloride [Moles/volume] in Serum or Plasma 108 meq/L 98-107 [facility] ([facility]) Carbon dioxide, total [Moles/volume] in Serum or Plasma 22 meq/L 21 -32 [facility] ([facility]) Potassium [Moles/volume] in Serum or Plasma 3.7 meq/L 3.5-5.1 [facility] ([facility]) Calcium [Mass/volume] in Serum or Plasma 8.9 mg/dL 8.5-10.1 [facility] ([facility]) Glomerular filtration rate/1.73 sq M pre dicted among non-blacks [Volume Rate/Area] in Serum or Plasma by Creatinine-based formula (MDRD) 25 mL/min [facility] ([facility]) Glomerular filtration rate/1.73 sq M pre dicted among blacks [Volume Rate/Area] in Serum or Plasma by Creatinine-based formula (MDRD) 31 mL/min [facility] ([facility]) <content>CHRONIC KIDNEY DISEASE STAGING PER NKF</content>
<content></content>
<content>STAGE I & II GFR >= 60 NORMAL TO MILDLY DECREASED</content>
<content>STAGE III GFR 30-59 MODERATELY DECREASED</content>
<content>STAGE IV GFR 15-29 SEVERELY DECREASED</content>
<content>STAGE V GFR <15 VERY LITTLE GFR LEFT</content>
<content>ESRD GFR <15 ON FIELD INSTRUCTOR</content>
<content></content> ID Date Data Source [id number] 08/05/2020 02:17:00 PM EST [facility] Name Value Range Interpretation Code Description Data Joan rce(s) Supporting Document(s) Hemoglobin A1c/Hemoglobin.total in Blood 7.1 % [facility] ([facility]) Lab Result Notes: Pre-Diabetes 5.7 - 6.4 % Diabetes = or > 6.5% Glucose mean value [Mass/volume] in Blood Estimated fr om glycated hemoglobin 157 mg/dL 60-110 [facility] ([facility] ID Date Data Source [id number] 08/05/2020 02:17:00 PM EST [facility] Name Value Range Interpretation Code Description Data Joan rce(s) Supporting Document(s) Hemoglobin A1c/Hemoglobin.total in Blood Laboratory test result [facility] ([facility]) ID Date Data Source [id number] 08/05/2020 02:16:00 PM EST [facility] Name Value Range Interpretation Code Description Data Joan rce(s) Supporting Document(s) Leukocytes [#/volume] in Blood by Automated count 9.0 x10*3/UL 4.1-10 .9 [facility] ([facility] Hemoglobin [Mass/volume] in Blood 10.7 g/dL 12.0-18.0 [facility] ([facility] Erythrocytes [#/volume] in Blood by Automated count 3.52 x10*6/UL 4.2 0-6.30 [facility] ([facility] MCH 30.3 pg 26.0-32.0 [facility]) MCV 86.9 fL 80.0-97.0 [facility] ([facility]) Hematocrit [Volume Fraction] of Blood by Automated count 30.6 % 3 7.0-51.0 [facility] ([facility] MCHC 34.8 g/dL 31.0-38.0 [facility] ([facility]) Erythrocyte distribution width [Ratio] by Automated count 14.9 % 11.6-13.7 [facility] ([facility] Platelets [#/volume] in Blood by Automated count 386 x10*3/UL 140-440 [facility] ([facility]) MPV 8.4 FL 7.8-11.0 [facility] ([facility]) Lymph % 22.3 % 10.0-58.5 [facility] ([facility]) Mid % 4.8 % 1.7-9.3 [facility] ([facility]) Neut % 72.9 % 37.0-92.0 [facility] ([facility]) Lymph # 2.0 x10*3/UL 0.6-4.1 [facility] ([facility]) Mid # 0.4 x10*3/UL 0.1-0.6 [facility] ([facility]) Neut # 6.6 x10*3/UL 2.0-7.8 [facility] ([facility]) ID Date Data Source [id number] 07/24/2020 11:20:[address] [facility] Name Value Range Interpretation Code Description Data Joan rce(s) Supporting Document(s) Progress Note [facility] [id number]bENU6 lbm [file] [id number]= ID Date Data Source [id number] 06/03/2020 11:31:00 AM EDT [facility] ([facility]) Name Value Range Interpretation Code Description Data Joan rce(s) Supporting Document(s) Ferritin [Mass/volume] in Serum or Plasma 42 ng/mL 8-252 [facility] ([facility]) ID Date Data Source [id number] 06/03/2020 11:31:00 AM EDT [facility] ([facility]) Name Value Range Interpretation Code Description Data Joan rce(s) Supporting Document(s) Total Iron Binding Capacity 410 ug/dL 250-450 ME [facility] ([facility]) Iron (Fe) 77 ug/dL 50-170 [facility] Percent Saturation 18.8 % 13.2-45.0 [facility] ([facility]) ID Date Data Source [id number] 06/03/2020 11:30:00 AM EDT [facility] ([facility]) Name Value Range Interpretation Code Description Data Joan rce(s) Supporting Document(s) Glucose [Mass/volume] in Serum or Plasma 117 mg/dL 74-99 [facility] ([facility]) 100-125 mg/dL PRE-DIABETES/FASTING >126 mg/dL DIABETES/FASTING Creatinine 1.4 mg/dL 0.6-1.3 [facility] ([facility]) Urea nitrogen [Mass/volume] in Serum or Plasma 31 mg/dL 7-18 [facility] ([facility]) Potassium [Moles/volume] in Serum or Plasma 3.8 meq/L 3.5-5.1 [facility] ([facility]) Sodium [Moles/volume] in Serum or Plasma 138 meq/L 136-145 [facility] ([facility]) Chloride [Moles/volume] in Serum or Plasma 106 meq/L 98-107 [facility] ([facility]) Carbon dioxide, total [Moles/volume] in Serum or Plasma 20 meq/L 21 -32 [facility] ([facility]) Calcium [Mass/volume] in Serum or Plasma 9.8 mg/dL 8.5-10.1 [facility] ([facility]) Alkaline phosphatase isoenzyme [Units/volume] in Serum or Pl asma 84 mg/dL 46-116 [facility] ([facility]) Aspartate aminotransferase [Enzymatic activity/volume] in Se rum or Plasma 8 U/L 15-37 [facility] ([facility]) Total Bilirubin 0.3 mg/dL 0.2-1.0 [facility] ([facility]) Alanine aminotransferase [Enzymatic activity/volume] in Seru m or Plasma 12 U/L 12-78 [facility] ([facility]) Albumin [Mass/volume] in Serum or Plasma 3.2 g/dL 3.4-5.0 [facility] ([facility]) NOTE: RESULT VERIFIED. Proteinase 3 Ab [Units/volume] in Serum 7.1 g/dL 6.4-8.2 [facility] ([facility]) A/G Ratio 0.82 CALC 1.00-1.90 [facility] ([facility]) Glomerular filtration rate/1.73 sq M pre dicted among non-blacks [Volume Rate/Area] in Serum or Plasma by Creatinine-based formula (MDRD) 36 mL/min [facility] ([facility]) Glomerular filtration rate/1.73 sq M pre dicted among blacks [Volume Rate/Area] in Serum or Plasma by Creatinine-based formula (MDRD) 44 mL/min [facility] ([facility]) <content>CHRONIC KIDNEY DISEASE STAGING PER NKF</content>
<content></content>
<content>STAGE I & II GFR >= 60 NORMAL TO MILDLY DECREASED</content>
<content>STAGE III GFR 30-59 MODERATELY DECREASED</content>
<content>STAGE IV GFR 15-29 SEVERELY DECREASED</content>
<content>STAGE V GFR <15 VERY LITTLE GFR LEFT</content>
<content>ESRD GFR <15 ON FIELD INSTRUCTOR</content>
<content></content> ID Date Data Source [id number] 06/03/2020 11:30:00 AM EDT [facility] ([facility]) Name Value Range Interpretation Code Description Data Joan rce(s) Supporting Document(s) Leukocytes [#/volume] in Blood by Automated count 11.5 x10*3/UL 4.1-1 0.9 [facility] ([facility]) Erythrocytes [#/volume] in Blood by Automated count 3.71 x10*6/UL 4.2 0-6.30 [facility] ([facility]) Hemoglobin [Mass/volume] in Blood 10.9 g/dL 12.0-18.0 [facility] ([facility]) Hematocrit [Volume Fraction] of Blood by Automated count 33.0 % 3 7.0-51.0 [facility] ([facility]) MCV 88.9 fL 80.0-97.0 [facility] ([facility]) MCH 29.5 pg 26.0-32.0 [facility] ([facility]) MCHC 33.2 g/dL 31.0-38.0 [facility] ([facility]) Erythrocyte distribution width [Ratio] by Automated count 17.0 % 11.6-13.7 [facility] ([facility]) MPV 8.5 FL 7.8-11.0 [facility] ([facility]) Platelets [#/volume] in Blood by Automated count 335 x10*3/UL 140-440 [facility] ([facility]) Mid % 8.7 % 1.7-9.3 [facility] ([facility]) Lymph % 31.9 % 10.0-58.5 [facility] ([facility]) Neut % 59.4 % 37.0-92.0 [facility] ([facility]) Lymph # 3.6 x10*3/UL 0.6-4.1 [facility] ([facility]) Mid # 1.1 x10*3/UL 0.1-0.6 [facility] ([facility]) Neut # 6.8 x10*3/UL 2.0-7.8 [facility] ([facility]) ID Date Data Source [id number] 05/13/2020 10:01:28 PM EDT [facility] Name Value Range Interpretation Code Description Data Joan rce(s) Supporting Document(s) Progress Note [facility] [id number] [facility] [file] AgICAgICAgICAgICAgICAgICAgICAgICAgICAgICAg ICAgICAgICAgICAgICAgICAgICAgICAgICANCiAgICAgICAgICAgICAgICAgICAgICAgICAgICAgICAg ICAgICAgICAgICAgICAgICAgICAgICAgICAgICAgICAgICAgICAgICAgICAgICAgICAgICAgICAgICAg ICAgICAgICANCiAgICAgICAgICAgICAgICAgICAgIC AgICAgICAgICAgICAgICAgICAgICAgICAgICAgICAgICAgICAgICAgICAgICAgICAgICAgICAgICAgIC AgICAgICAgICAgICAgICAgICANCiAgICAgICAgICAgICAgICAgICAgICAgICAgICAgICAgICAgICAgIC AgICAgICAgICAgICAgICAgICAgICAgICAgICAgICAg ICAgICAgICAgICAgICAgICAgICAgICAgICAgICANCiAgICAgICAgICAgICAgICAgICAgICAgICAgICAg ICAgICAgICAgICAgICAgICAgICAgICAgICAgICAgICAgICAgICAgICAgICAgICAgICAgICAgICAgICAg ICAgICAgICAgICANCiAgICAgICAgICAgICAgICAgIC AgICAgICAgICAgICAgICAgICAgICAgICAgICAgICAgICAgICAgICAgICAgICAgICAgICAgICAgICAgIC AgICAgICAgICAgICAgICAgICAgICANCiAgICAgICAgICAgICAgICAgICAgICAgICAgICAgICAgICAgIC AgICAgICAgICAgICAgICAgICAgICAgICAgICAgICAg ICAgICAgICAgICAgICAgICAgICAgICAgICAgICAgICANCiAgICAgICAgICAgICAgICAgICAgICAgICAg ICAgICAgICAgICAgICAgICAgICAgICAgICAgICAgICAgICAgICAgICAgICAgICAgICAgICAgICAgICAg ICAgICAgICAgICAgICANCiAgICAgICAgICAgICAgIC AgICAgICAgICAgICAgICAgICAgICAgICAgICAgICAgICAgICAgICAgICAgICAgICAgICAgICAgICAgIC AgICAgICAgICAgICAgICAgICAgICAgICANCiAgICAgICAgICAgICAgICAgICAgICAgICAgICAgICAgIC AgICAgICAgICAgICAgICAgICAgICAgICAgICAgICAg ICAgICAgICAgICAgICAgICAgICAgICAgICAgICAgICAgICANCjw/lXDsX0wepQQegzS7J1cvFo7QQo7A VZ8jt8NaBOKeNJayqkFnCaxOWdNbCYWrEulKHou9EWkgEO3BuHViT9JpT0IeVSsmIP7AVAKhTTLpbGWd XOKxXBRkZhY1WDEuFZqgSR0YpERcWNwgJGIiTIWcPd OvXORnKX2ANXBrJ218aeNyJa9ULm6VAkCxJR4eai0BCxVhRTXeCpqADfp4HBrkVQ4IyITggVZqIqYrHB OXScLqG7riq9AfQnOeJDCZQKkaRM7Vw1JmkJAyIBo+Fy5CBH0fy9YcDXdkKgYsKG6phe0HEOtCYjYrR8 ZxnQwbFLAki3bbSJQhLZ0pjHJjTJZ5OHUukCmuSIlf uykcXLDtYBGrVB3bMu9lVUYgPGCvCiGpLLBLOM3LSUClZESycGWlIASzJSWSXT0PBBblQHF3LPSqblEx rBZuVYcsPI1WTKKukiDrZrAjNNGHBLh+In0HBJ9wd9BpYRezPrRuAB5lwt3NDReNIyYyT5D1cLBzS0I1 WRbbLq7APQVhCFFdRChhXKPEWWvpSK8QGA6vetX1AU 0MeFHcDFWiEHNjuDEvULq1U58biTEdXJzyZG6TPGW+Carol+Qq6KCPZcVKFbVKHeZkKkFJWFZeCiA8GwL3 XAx8GjC2OnFD59iGqqeoYkKXrkSB7VNW1aEUSkDKMZFP7IvMVfsU9eagTcKVPrAANWVgEfX82agKBsSW DqXURrZWDiCr9WHRJgW6PaepUlqWvwicKxVPLlGBPM BJ6QPBefonFzsFMrmXbyVL64gZdmDJ1NSy8ZPxVkEX7dpp9HkSBbNm6PMLIuRN6PJZEyRPAbKZMuKDO1 EKVbYaJpSLfsITTdGLUoGGK3HQBlAVCqNB4RAlIlRJGjEjc7OehwOTJwVEDgox6HAUWlTOVcQZI3VMSx PBWrZWXjCZinQLIyMHMtSVK4CQBnGLVtWN4MUkQiZK MvBBV7OKpuGWCrXDSqrx7EMQMsDWCgOUL8NJZsDHIfENNzXGcwOZFcOSR3ImsxIFBpARHbWG1OWiPfVM PpWKP5PjjoMRHuLCOmfj8NYYJoYONaQHpvAyTwOWFeUYHsKCtmNTOrNFJ8CSDgMZKyWCDbZH5ZTqHjPM MlZKZpVEJfGRWbWVXgcm5UKFLnPAIzUzT5JrRnIIGt QRFgNVcrYBYyPEQ5Kju7CONwKRMiYX8IGjPsCLVbQJn0GvPgWWHnWAGcuw1LNPNlAWZvXEC5XEGiXMHq VRAfIOjhCISqPRX2NsXlDIPlBCWkTC1MOgKaUWTzNio3SCulBRGoAJYwzm4XKXTkTHKpEDArQOAlVGCx QEQfVBsdMVJrMYC9MBU9OQEbCBExWE0HDnImYNQpDc h0CZmcJLJaGHSbfw7XHBTyIEYxUFH3TxPpSHPeEWHiNLrjDELiWLKuDTZcLXMrTPWuGD2MVnAjUIFoHl G4JRnlFWOrZQFlbd4HhMJrqDeobk5VPWsGTo9LtVawOYA6XQpbPd1xfIGbPbWhIYCMNk9QqePuALZbQC WCGNdfOJVxXTO7UBkiEgGyMSefBKOsTSJoOQhqEkA0 FeHxILJ2MkQ5PfW2Aky9P7JmBNX4OQTqKCX9HNUgDRZ3CAz7JOF7IGHcTLi+RG1yTPi+Ts6Tz6LfqoW8 ycPxICecQGu5QJ7UUBSRW7SXDy== Procedure Social History Code Duration Value Status Description Data Source(s ) Smoking 04/28/2021 12:00:00 AM EDT Former Smoker completed Former Smoker eCW1 ([facility]) Smoking 04/28/2021 12:00:00 AM EDT Former Smoker completed Former Smoker eCW1 ([facility]) Smoking 04/28/2021 12:00:00 AM EDT Former Smoker completed Former Smoker eCW1 ([facility]) Smoking 04/28/2021 12:00:00 AM EDT Former Smoker completed Former Smoker eCW1 ([facility]) Smoking 04/28/2021 12:00:00 AM EDT Former Smoker completed Former Smoker eCW1 ([facility]) Smoking 04/28/2021 12:00:00 AM EDT Former Smoker completed Former Smoker eCW1 ([facility]) Smoking 04/28/2021 12:00:00 AM EDT Former Smoker completed Former Smoker eCW1 ([facility]) Smoking 04/28/2021 12:00:00 AM EDT Former Smoker completed Former Smoker eCW1 ([facility]) Smoking 03/31/2021 12:00:00 AM EDT Never Smoker completed Never S moker eCW1 ([facility]) Smoking 03/31/2021 12:00:00 AM EDT Never Smoker completed Never S moker eCW1 ([facility]) Smoking 03/24/2021 12:00:00 AM EDT Patient is a former smoker completed Patient is a former smoker MEDMAGDALENA ([facility]) Vital Signs ID Date Data Source UNK Name Value Range Interpretation Code Description Data Source(s) Oxygen saturation in Arterial blood by Pulse oximetry 99 % 99 % [facility] Room Air Systolic blood pressure 128 mm[Hg] 128 mm[Hg] M EDENT ([facility], ) Diastolic blood pressure 70 mm[Hg] 70 mm[Hg] [facility], ) Heart rate 88 /min 88 /min MEDENT ([facility], ) Heart rate 91 /min 91 /min eCW1 ([facility] Body mass index (BMI) [Ratio] 21.30 kg/m2 21.30 kg/m2 eCW1 ([facility]) Body temperature 97.7 [degF] 97.7 [degF] eCW1 ( [facility]) Systolic blood pressure 126 mm[Hg] 126 mm[Hg] e CW1 ([facility]) Body weight 136 [lb_av] 136 [lb_av] eCW1 ([facility]) Body weight 61.69 kg 61.69 kg eCW1 ([facility]) Body height 67 [in_i] 67 [in_i] eCW1 ([facility]) Diastolic blood pressure 68 mm[Hg] 68 mm[Hg] eCW1 ([facility]) Respiratory rate 20 /min 20 /min eCW1 ([facility]) Systolic blood pressure 130 mm[Hg] 130 mm[Hg] e CW1 ([facility]) Body temperature 96 [degF] 96 [degF] eCW1 ([facility]) Diastolic blood pressure 78 mm[Hg] 78 mm[Hg] eCW1 ([facility]) Body weight 137.08 [lb_av] 137.08 [lb_av] eCW1 ([facility]) Body weight 62.18 kg 62.18 kg eCW1 ([facility]) Body height 67 [in_i] 67 [in_i] eCW1 ([facility]) Heart rate 96 /min 96 /min eCW1 ([facility]) Respiratory rate 20 /min 20 /min eCW1 ([facility]) Body mass index (BMI) [Ratio] 21.47 kg/m2 21.47 kg/m2 eCW1 ([facility]) Body weight 140 [lb_av] 140 [lb_av] eCW1 ([facility]) Body height 67 [in_i] 67 [in_i] eCW1 ([facility]) Body mass index (BMI) [Ratio] 21.92 kg/m2 21.92 kg/m2 eCW1 ([facility]) Heart rate 102 /min 102 /min eCW1 ([facility]) Respiratory rate 24 /min 24 /min eCW1 ([facility]) Body temperature 98 [degF] 98 [degF] eCW1 ([facility]) Systolic blood pressure 126 mm[Hg] 126 mm[Hg] e CW1 ([facility]) Diastolic blood pressure 68 mm[Hg] 68 mm[Hg] eCW1 ([facility]) Body height 66 [in_i] 66 [in_i] MEDENT ([facility]) 5'6" Body weight 143.00 [lb_av] 143.00 [lb_av] MEDEN T ([facility]) Respiratory rate 16 /min 16 /min MEDENT ( [facility]) Body mass index (BMI) [Ratio] 23.1 kg/m2 23.1 k g/m2 MEDENT ([facility]) Heart rate 60 /min 60 /min MEDENT ([facility]) Regular Systolic blood pressure 146 mm[Hg] 146 mm[Hg] M EDENT ([facility]) sitting, regular cff Diastolic blood pressure 82 mm[Hg] 82 mm[Hg] MEDENT ([facility]) sitting, regular cff Systolic blood pressure 146 mm[Hg] 146 mm[Hg] M EDENT ([facility]) sitting Diastolic blood pressure 78 mm[Hg] 78 mm[Hg] MEDENT ([facility]) sitting Systolic blood pressure 110 mm[Hg] 110 mm[Hg] M EDENT ([facility]) Diastolic blood pressure 68 mm[Hg] 68 mm[Hg] MEDENT ([facility]) Heart rate 88 /min 88 /min MEDENT ([facility]) Body height 66 [in_i] 66 [in_i] MEDENT ([facility]) 5'6" Body weight 142.00 [lb_av] 142.00 [lb_av] MEDEN T ([facility]) Oxygen saturation in Arterial blood by Pulse oximetry 96 % 96 % MEDENT ([facility]) RM Air Body mass index (BMI) [Ratio] 22.9 kg/m2 22.9 k g/m2 MEDENT ([facility]) Body height 67 [in_i] 67 [in_i] MEDENT [facility] 5'7" Body weight 147.00 [lb_av] 147.00 [...] weight 66.679 kg 66.679 kg MED[facility] Body temperature 95.5 [degF] 95.5 [degF] MEDENT ([facility]) [place] body weight 130 [lb_av] 130 [lb_av] MEDEN T ([facility]) Body weight 63.958 kg 63.958 kg [facility] ([facility]) Body surface area Derived from formula 1.72 m2 1.72 m2 [facility] ([facility]) Oxygen saturation in Arterial blood by Pulse oximetry 99 % 99 % [facility] ([facility]) Room Air Oxygen saturation in Arterial blood by Pulse oximetry 99 % 99 % [facility] ([facility]) Room Air Body height 66 [in_i] 66 [in_i] [facility] 5'6" Body weight 141.00 [lb_av] 141.00 [lb_av] MEDEN T ([facility]) Body mass index (BMI) [Ratio] 22.8 kg/m2 22.8 k g/m2 [facility] ([facility]) Body mass index (BMI) [Ratio] 22.8 kg/m2 22.8 k g/m2 [facility] ([facility]) Systolic blood pressure 130 mm[Hg] 130 mm[Hg] [facility] Diastolic blood pressure 70 mm[Hg] 70 mm[Hg] [facility] ([facility]) Heart rate 73 /min 73 /min [facility] ([facility]) Body height 66 [in_i] 66 [in_i] [facility] ([facility]) 5'6" Body weight 141.00 [lb_av] 141.00 [lb_av] MEDEN T ([facility]) [place] body weight 130 [lb_av] 130 [lb_av] [facility] Body weight 63.958 kg 63.958 kg [facility] ([facility]) Body surface area Derived from formula 1.72 m2 1.72 m2 [facility] ([facility]) Heart rate 67 /min 67 /min [facility] ([facility]) Diastolic blood pressure 60 mm[Hg] 60 mm[Hg] [facility] ([facility]) Body height 66 [in_i] 66 [in_i] [facility] ([facility]) 5'6" Body weight 142.00 [lb_av] 142.00 [lb_av] [facility] Oxygen saturation in Arterial blood by Pulse oximetry 97 % 97 % [facility] ([facility]) Air Body mass index (BMI) [Ratio] 22.9 kg/m2 22.9 k g/m2 [facility]) Systolic blood pressure 122 mm[Hg] 122 mm[Hg] [facility] Systolic blood pressure 102 mm[Hg] 102 mm[Hg] [facility] Diastolic blood pressure 60 mm[Hg] 60 mm[Hg] [facility]) Heart rate 70 /min 70 /min [facility] ([facility]) Body height 66 [in_i] 66 [in_i] MEDENT ([facility]) 5'6" Body weight 141.00 [lb_av] 141.00 [lb_av] MEDEN T ([facility]) Oxygen saturation in Arterial blood by Pulse oximetry 96 % 96 % MED[facility] ([facility]) RM Air Body mass index (BMI) [Ratio] 22.8 kg/m2 22.8 k g/m2 MEDENT ([facility]) Body weight 140.00 [lb_av] 140.00 [lb_av] MEDEN T ([facility]) Body height 66 [in_i] 66 [in_i] [facility] ([facility] 5'6" Body mass index (BMI) [Ratio] 22.6 kg/m2 22.6 k g/m2 MED[facility] ([facility]) Heart rate 71 /min 71 /min [facility] ([facility]) Respiratory rate 18 /min 18 /min MEDENT ( [facility]) Systolic blood pressure--sitting 138 mm[Hg] 138 mm[Hg] MEDENT ([facility]) Diastolic blood pressure--sitting 70 mm[Hg] 70 mm[Hg] MEDENT ([facility]) Oxygen saturation in Arterial blood by Pulse oximetry 98 % 98 % MED[facility] ([facility]) [place] body weight 130 [lb_av] 130 [lb_av] MEDEN T ([facility], ) Systolic blood pressure 118 mm[Hg] 118 mm[Hg] M EDENT ([facility], ) Diastolic blood pressure 70 mm[Hg] 70 mm[Hg] MEDENT ([facility], ) Heart rate 81 /min 81 /min [facility], ) Oxygen saturation in Arterial blood by Pulse oximetry 98 % 98 % [facility], ) Room Air Body height 66 [in_i] 66 [in_i] MEDENT ([facility], ) 5'6" Systolic blood pressure 108 mm[Hg] 108 mm[Hg] M EDENT ([facility]) Diastolic blood pressure 60 mm[Hg] 60 mm[Hg] MEDENT ([facility]) Heart rate 82 /min 82 /min MED[facility] ([facility]) Body height 66 [in_i] 66 [in_i] MEDENT ([facility]) 5'6" Body weight 139.00 [lb_av] 139.00 [lb_av] MEDEN T ([facility]) Oxygen saturation in Arterial blood by Pulse oximetry 96 % 96 % [facility]) RM Air Body mass index (BMI) [Ratio] 22.4 kg/m2 22.4 k g/m2 MEDENT ([facility]) Heart rate 80 /min 80 /min MED[facility] ([facility]) Body height 66 [in_i] 66 [in_i] [facility] ([facility]) 5'6" Body weight 139.00 [lb_av] 139.00 [lb_av] MEDEN T ([facility]) Systolic blood pressure 102 mm[Hg] 102 mm[Hg] M [facility] ([facility]) Diastolic blood pressure 60 mm[Hg] 60 mm[Hg] [facility] ([facility]) Oxygen saturation in Arterial blood by Pulse oximetry 99 % 99 % [facility] ([facility]) RM Air Body mass index (BMI) [Ratio] 22.4 kg/m2 22.4 k g/m2 [facility] ([facility]) Systolic blood pressure 102 mm[Hg] 102 mm[Hg] M [facility] ([facility], ) Diastolic blood pressure 62 mm[Hg] 62 mm[Hg] [facility] ([facility], ) Heart rate 71 /min 71 /min [facility] ([facility], ) Oxygen saturation in Arterial blood by Pulse oximetry 96 % 96 % [facility] ([facility], ) Room Air Body temperature 96.5 [degF] 96.5 [degF] [facility] ([facility]) Body height 66 [in_i] 66 [in_i] [facility] ([facility]) 5'6" [place] body weight 130 [lb_av] 130 [lb_av] MEDEN T ([facility], ) Patient Treatment Plan of Care Planned Activity Planned Date Details Description Data Source (s) Docusate Sodium 50 MG / sennosides, SHELTER 8.6 MG Oral Ta blet 05/28/2021 12:00:00 AM EDT eCW1 ([facility]) Flonase Allergy Relief 50 MCG/ACT 03/31/2021 12:00:00 AM EDT eCW1 ([facility]) Flonase Allergy Relief 50 MCG/ACT 03/31/2021 12:00:00 AM EDT eCW1 ([facility]) brinzolamide 10 MG/ML Ophthalmic Suspension 04/08/2020 12:00:[address] [facility] pantoprazole 40 MG Delayed Release Oral Tablet 04/08/2020 12:00:[address] [facility]
[2021-06-22] MEDS ORDERED: MUCI600T31 PO (12:38)
[2021-06-22] MEDS ORDERED: TORS10TA3 PO (12:38)
[2021-06-22] MEDS ORDERED: FLUTISP NARES (12:38)
[2021-06-22] MEDS ORDERED: XALA0.007 OU (12:38)
[2021-06-22] MEDS ORDERED: HOME MED LIST COMPLETE! XX SCH (12:40)
[2021-06-22] MEDS ORDERED: ALBUTEROL SULFATE 2.5 MG/0.5 ML INH NEB SOLN INH PRN (14:10)
[2021-06-22] MEDS ORDERED: guaiFENesin ER 600 MG TAB PO PRN (14:10)
[2021-06-22] MEDS ORDERED: FLUTICASONE PROP 0.05% NASAL SPRAY 16 GM (FLONASE) NARES PRN (14:10)
[2021-06-22] MEDS ORDERED: NITROGLYCERIN 0.4 MG SUBL TABLET SL PRN (14:10)
[2021-06-22] MEDS: NS 1,000 ML IV SCH ×2 (15:11→20:39)
[2021-06-22] MEDS: HumaLOG INSULIN (NovoLOG) PER UNIT SC SCH ×2 (18:28→20:39)
--- NOTE | 2021-06-22 19:48 | ECGEPIP ---
- ED Test Date: 2021-06-22 Pat Name: SILVIA BAER Department: Room: - Gender: Female Peripatologist: ELI : [id number] Requested By: JAIME Mckeon Order Number: [id number] Reading MD: Zack Vazquez Measurements Intervals [place] Rate: 72 P: ID: [id number] QRS: -67 QRSD: 196 T: 110 QT: 468 QTc: 512 Interpretive Statements AV dual-paced rhythm with occasional premature ventricular complexes SIMILAR TO 03/15/21 Electronically Signed on 06-22-2021 19:47:50 EDT by Zack Vazquez
[2021-06-22] MEDS: ADVAIR HFA 230/21MCG INHALER INH SCH (20:02)
[2021-06-22] MEDS: SUCRALFATE 1 GM TAB PO SCH (20:37)
[2021-06-22] MEDS: LATANOPROST 0.005% OPHTH SOLN 2.5 ML OU SCH (20:37)
[2021-06-22] MEDS: BRINZOLAMIDE 1 % OPHTH SUSP (AZOPT) 10ML OU SCH (20:37)
[2021-06-22] MEDS: RIVAROXABAN 15 MG TAB (XARELTO) PO SCH (20:38)
[2021-06-22] MEDS: SODIUM BICARBONATE 325 MG TAB PO SCH (20:38)
[2021-06-22 21:00] VITALS: BP 112/65
[2021-06-22 22:00] VITALS: BP 91/50
[2021-06-23 06:00] VITALS: BP 102/60
[2021-06-23 07:03] LABS: BASO % 0.2 % (0.0-1.0); HEMOGLOBIN 9.1 g/dl (12.0-15.5); LYMPH # 0.6 10^3/uL (1.5-5.0); LYMPH % 9.6 % (24.0-44.0); MEAN CORPUSCULAR HEMOGLOBIN 28.6 pg (27.0-33.0); MEAN CORPUSCULAR HGB CONC 32.5 g/dl (32.0-36.5); MEAN CORPUSCULAR VOLUME 88.1 fl (80.0-96.0); MONO # 0.2 10^3/uL (0.0-0.8); MONO % 2.6 % (2.0-8.0); NEUTROPHILS # 5.3 10^3/uL (1.5-8.5); NEUTROPHILS % 86.9 % (36.0-66.0); PLATELET COUNT, AUTOMATED 203 10^3/uL (150-450); RED BLOOD COUNT 3.18 10^6/uL (4.00-5.40); WHITE BLOOD COUNT 6.1 10^3/uL (4.0-10.0)
[2021-06-23] MEDS: NS 1,000 ML IV SCH (07:07)
[2021-06-23] MEDS: ADVAIR HFA 230/21MCG INHALER INH SCH ×2 (07:20→18:04)
[2021-06-23 07:36] LABS: BILIRUBIN,TOTAL 0.2 MG/DL (0.2-1.0); C REACTIVE PROTEIN QUANTITATIV 20.1 MG/DL (0.00-0.30); CREATININE FOR GFR 1.68 MG/DL (0.55-1.30); ERYTHROCYTE SEDIMENTATION RATE 89 mm/hr (0-30); GLOMERULAR FILTRATION RATE 30.9 (>32); MAGNESIUM LEVEL 1.7 MG/DL (1.8-2.4); POTASSIUM SERUM 3.6 MEQ/L (3.5-5.1)
[2021-06-23] MEDS: BRINZOLAMIDE 1 % OPHTH SUSP (AZOPT) 10ML OU SCH ×2 (08:49→20:14)
[2021-06-23] MEDS: MAG SULF 1GM/100ML (MAG RUN) 1 GM in IV 1 EA IV SCH ×2 (08:50→10:36)
[2021-06-23] MEDS: SUCRALFATE 1 GM TAB PO SCH ×2 (08:50→20:14)
[2021-06-23] MEDS: HumaLOG INSULIN (NovoLOG) PER UNIT SC SCH ×4 (08:50→20:14)
[2021-06-23] MEDS: PANTOPRAZOLE 40MG TAB (PROTONIX) PO SCH (08:51)
[2021-06-23] MEDS: CALCITRIOL 0.25 MCG CAP (S0169) PO SCH (08:51)
[2021-06-23] MEDS: SENOKOT S TAB PO SCH (08:51)
[2021-06-23] MEDS: SODIUM BICARBONATE 325 MG TAB PO SCH ×2 (08:51→20:14)
[2021-06-23] MEDS: FERROUS GLUCONATE 324 MG TAB PO SCH (08:51)
[2021-06-23] MEDS: allopurinoL 100 MG TAB PO SCH (08:51)
[2021-06-23] MEDS: TORSEMIDE 10 MG TABLET PO SCH (08:51)
[2021-06-23] MEDS: cefTRIAXone SOD 1 GM in D5W MINI-BAG PLUS 50 ML IV SCH (11:47)
[2021-06-23] MEDS ORDERED: AZITHROMYCIN INJ 500 MG, VIAL MATE ADAPTER 1 EACH in NS 250 ML IV SCH (12:00)
--- NOTE | 2021-06-23 13:15 | IPNPDOC ---
Date Seen The patient was seen on 06/23/21. Progress Note SUBJECTIVE: Patient seen and examined at bedside. She is comfortable sitting on the edge of the bed eating breakfast with good appetite. She is presently on 2 L of oxygen saturating at 93%. She denies any chest pain palpitations nausea vomiting diarrhea. She complains of mild shortness of breath. OBJECTIVE PHYSICAL EXAMINATION: VITAL SIGNS: please see below General: NAD, comfortable HEENT: PERRLA, EOMI, sclerae clear Neck: supple, normal ROM, no JVD Respiratory: Fair inspiratory effort, no wheezing. Mild rales heard the left lung base. CVS: RRR, normal S1, S2, no murmurs Abdo: soft, no masses, no hepatosplenomegaly, BS+, no rebound tenderness Extremities: no edema, pulses 2+ MSK: no joint deformities, normal ROM Neuro: no focal neuro deficits, moving all 4 extremities, CN2-12 intact. Strength 5/5 in all 4 extremities. No nystagmus. Psych: calm, cooperative, AAO x 3 LABORATORY DATA, IMAGING STUDIES, MICROBIOLOGY: Please see below. DVT prophylaxis ordered?: Xarelto 15 mg every afternoon. 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 Patient was admitted with pneumonia as well as GUY and urinary tract infection. . PLAN: Pneumonia, possibly MAC - patient has hx of pseudomonas aeruginosa pna, completed 7 day course of meropenem 03/2021 - has been followed by Dr. Donaldson on outpatient basis - Sputum culture and gram stain (03/14/21) positive for MAC. Sputum fungal culture (03/17/21) positive for Idalia Albicans and Idalia Glabrata. Repeat sputum smear and culture were ordered 04/2021, pending. - at this time, it is likely that patient requires MAC therapy with azithromycin, rifampin and ethambutol three times per week - isolated Idalia Albicans and Idalia Glabrate from sputum likely does not treatment unless suspected disseminated candidasis. -Infectious disease consult placed with Dr. Donaldson on 06/23/2021 - for now, patient has not been admitted to hospital since 03/2021, therefore my suspicion for pseudomonas is low - will continue with ceftriaxone and azithromycin which were ordered in ER - blood cultures x 2, sputum culture, legionella, strep pneumo ag. - trend ESR, CRP, procalcitonin - MRSA screen positive. Start IV vancomycin. - CT chest wo contrast ordered. GUY on CKD 3 - likely pre-renal, 2/2 reduced PO intake - will start patient on judicious fluids - check renal US - avoid nephrotoxins - Cr trended from 2.11 to 1.68. baseline ~1.0. - will hold torsemide 10 mg for now. UTI/cystitis - UA showing pyuria, blood and LE+ - started on empiric ceftriaxone in ER, will continue HFpEF - BNP is elevated in ER at 3300 - patient is not displaying symptoms of fluid overload. No SOB, no edema, no crackles - volume depleted based on GUY, reports reduced PO intake - DC IVF. - hold torsemide at this time. Hx COPD - presently on 2L NC. Likely 2/2 pneumonia. COPD stable. - resume home inhalers: albuterol and advair Hypomagnesemia - replaced CAD with RCA stent - stenting in 2004 - patient does not take ASA or plavix, there is hx of GI bleeding - c/w Xarelto AOCD - Hgb at baseline Hx of Mobitz Type II heart block s/p pacemaker NIDDM - hold oral meds - ISS AC and HS - hypoglycemic precautions Chronic BLE DVT s/p IVC filter 04/2019 - xarelto Glaucoma and macular degeneration - resume home eye drops, patient brought own meds - Latanoprost and brinzolamide Code status: DNR/DNI Dispo: pending clinical improvement. Admission expected to span > 2 midnights. [facility]&O Vital Signs Date Time Temp Pulse Resp B/P (MAP) Pulse Ox O2 Delivery O2 Flow Rate FiO2 06/23/21 09:00 2.0 06/23/21 06:00 97.3 74 18 102/60 (74) 93 Room Air I&O- Last 24 Hours up to 6 AM 06/23/21 06:00 Intake Total 1630 ml Output Total 0 ml Balance 1630 ml Laboratory Data 24H LABS Laboratory Tests 2 06/22/21 17:27: Bedside Glucose (Misc Panel) 298H 06/22/21 20:26: Bedside Glucose (Misc Panel) 307H 06/23/21 03:35: 06/23/21 03:52: Methicillin-Resist S.aureus DNA PCR DETECTEDA 06/23/21 06:18: Immature Granulocyte % (Auto) 0.7, Neutrophils (%) (Auto) 86.9H, Lymphocytes (%) (Auto) 9.6L, Monocytes (%) (Auto) 2.6, Eosinophils (%) (Auto) 0.0, Basophils (%) (Auto) 0.2, Neutrophils # (Auto) 5.3, Lymphocytes # (Auto) 0.6L, Monocytes # (Auto) 0.2, Eosinophils # (Auto) 0.0, Basophils # (Auto) 0.0, Nucleated Red Blood Cells % (auto) 0.0, Erythrocyte Sedimentation Rate 89H, Anion Gap 9, Glomerular Filtration Rate 30.9L, Calcium Level 8.0L, Magnesium Level 1.7L, Total Bilirubin 0.2, Aspartate Amino Transf (AST/SGOT) 4L, Alanine Aminotransferase (ALT/SGPT) 11L, Alkaline Phosphatase 96, C-Reactive Protein, Quantitative 20.10H, Total Protein 5.0L, Albumin 2.0L, Albumin/Globulin Ratio 0.7L 06/23/21 11:49: Bedside Glucose (Misc Panel) 261H CBC/BMP Laboratory Tests 06/23/21 06:18 Microbiology Microbiology 06/22/21 Urine Culture, Received Pending 06/22/21 Respiratory Virus Panel (PCR) (ROBLES) - Final, Complete 06/22/21 Blood Culture - Preliminary, Resulted No growth after 24 hours . All specim... 06/22/21 Blood Culture - Preliminary, Resulted No growth after 24 hours . All specim... ROD FOX MD Jun 23, 2021 13:15
[2021-06-23] MEDS ORDERED: VANCOMYCIN HCL 1,000 MG, VIAL MATE ADAPTER 1 EACH in NS 250 ML IV SCH (13:20)
--- NOTE | 2021-06-23 13:26 | REP ---
INDICATION: pna COMPARISON: Multiple the latest 03/13/2021 also without contrast TECHNIQUE: Standard helical technique without intravenous contrast. This causes exam limitations particularly when evaluating the mediastinum and pulmonary rony. FINDINGS: There is evidence of mediastinal adenopathy status quo. Hilar adenopathy cannot be ruled out. There are no pleural or pericardial effusions. The imaged upper abdomen and imaged osseous structures appear unchanged. There is a hiatal hernia status quo. There are spinal degenerative changes status quo. Evaluation of the lung ernandez shows significant improvement in the previously present patchy and irregular airspace opacities particularly in the lower lobes. Residuals do, however, persist particularly on the left. No new abnormal nodules, masses, or opacities have developed. IMPRESSION: 1. Adenopathy as described above. 2. Lung field improvement as described above. <Electronically signed by Feliz Chester > 06/23/21 [id number]
[2021-06-23 14:00] VITALS: BP 110/60
[2021-06-23] MEDS ORDERED: VANCOMYCIN HCL 750 MG, VIAL MATE ADAPTER 1 EACH in NS 250 ML IV ONE ×2 (14:00→15:00)
--- NOTE | 2021-06-23 16:52 | REP ---
INDICATION: GUY. COMPARISON: 04/19/2020 TECHNIQUE: Real-time sonographic evaluation of the kidneys with Doppler FINDINGS: Multiple ultrasonographic images of the right kidney show the right kidney to measure 8.8 x 3.6 x 4.6 cm. The renal cortical echotexture is increased. The renal cortex is thinned. There are no masses. There is good corticomedullary differentiation. There is no hydronephrosis. There are no perinephric fluid collections. Multiple ultrasonographic images of the left kidney show the left kidney to measure 8.5 x 4.5 x 4.1 cm. The renal cortex is thinned. The renal cortical echotexture is increased. There are no masses. There is good corticomedullary differentiation. There is no hydronephrosis. There are no perinephric fluid collections. IMPRESSION: Chronic bilateral renal changes as described above appearing essentially stable compared to the prior exam consistent with chronic medical renal disease or age-related atrophy. <Electronically signed by Feliz Chester > 06/23/21 [id number]
[2021-06-23] MEDS: RIVAROXABAN 15 MG TAB (XARELTO) PO SCH (20:14)
[2021-06-23] MEDS: DOXYCYCLINE HYCLATE 100MG TABLET PO SCH (20:14)
[2021-06-23] MEDS: LATANOPROST 0.005% OPHTH SOLN 2.5 ML OU SCH (20:48)
[2021-06-23 20:55] VITALS: BP 128/58
[2021-06-24 06:00] VITALS: BP 93/53
[2021-06-24] MEDS: ADVAIR HFA 230/21MCG INHALER INH SCH ×2 (08:37→20:41)
[2021-06-24 08:38] LABS: BASO % 0.1 % (0.0-1.0); EOS # 0.1 10^3/uL (0.0-0.5); EOS % 0.6 % (0.0-3.0); HEMATOCRIT 27.3 % (36.0-47.0); HEMOGLOBIN 8.8 g/dl (12.0-15.5); LYMPH # 2.1 10^3/uL (1.5-5.0); LYMPH % 20.6 % (24.0-44.0); MEAN CORPUSCULAR HEMOGLOBIN 28.2 pg (27.0-33.0); MEAN CORPUSCULAR HGB CONC 32.2 g/dl (32.0-36.5); MEAN CORPUSCULAR VOLUME 87.5 fl (80.0-96.0); MONO # 0.7 10^3/uL (0.0-0.8); MONO % 6.9 % (2.0-8.0); NEUTROPHILS # 7.3 10^3/uL (1.5-8.5); NEUTROPHILS % 71.3 % (36.0-66.0); PLATELET COUNT, AUTOMATED 258 10^3/uL (150-450); RED BLOOD COUNT 3.12 10^6/uL (4.00-5.40); WHITE BLOOD COUNT 10.3 10^3/uL (4.0-10.0)
[2021-06-24 09:01] LABS: ALBUMIN 1.9 GM/DL (3.2-5.2); BILIRUBIN,TOTAL 0.2 MG/DL (0.2-1.0); CALCIUM LEVEL 8.2 MG/DL (8.8-10.2); CREATININE FOR GFR 1.34 MG/DL (0.55-1.30); GLOMERULAR FILTRATION RATE 40.1 (>32); POTASSIUM SERUM 3.4 MEQ/L (3.5-5.1); TOTAL PROTEIN 4.7 GM/DL (6.4-8.2)
[2021-06-24] MEDS: SODIUM BICARBONATE 325 MG TAB PO SCH ×2 (09:04→20:41)
[2021-06-24] MEDS: SENOKOT S TAB PO SCH (09:04)
[2021-06-24] MEDS: allopurinoL 100 MG TAB PO SCH (09:05)
[2021-06-24] MEDS: DOXYCYCLINE HYCLATE 100MG TABLET PO SCH ×2 (09:05→20:41)
[2021-06-24] MEDS: SUCRALFATE 1 GM TAB PO SCH ×2 (09:05→20:41)
[2021-06-24] MEDS: HumaLOG INSULIN (NovoLOG) PER UNIT SC SCH ×4 (09:05→20:41)
[2021-06-24] MEDS: FERROUS GLUCONATE 324 MG TAB PO SCH (09:05)
[2021-06-24] MEDS: CALCITRIOL 0.25 MCG CAP (S0169) PO SCH (09:06)
[2021-06-24] MEDS: PANTOPRAZOLE 40MG TAB (PROTONIX) PO SCH (09:06)
[2021-06-24] MEDS: TORSEMIDE 10 MG TABLET PO SCH (09:06)
[2021-06-24] MEDS: BRINZOLAMIDE 1 % OPHTH SUSP (AZOPT) 10ML OU SCH ×2 (09:07→20:42)
--- NOTE | 2021-06-24 11:44 | CR ---
INFECTIOUS DISEASE CONSULTATION DATE: 06/23/2021 REASON FOR CONSULTATION: Cough and history of mycobacterium avium complex in previous sputum culture. HISTORY OF PRESENT ILLNESS: Ms. Ash is an 86-year-old female who lives at [facility], who was admitted with a five day history of not feeling well, mostly started with nasal congestion, fever, rigors, then developed a cough with increasing shortness of breath and therefore was transferred from [facility] with worsening shortness of breath, abdominal discomfort and dysuria. The patient had a chest x-ray, which showed bilateral infiltrates and urinalysis had pyuria. Patient is being treated with intravenous (IV) Rocephin, Zithromax for presumed pneumonia. Vancomycin was added because of a positive nasal methicillin-resistant Staphylococcus aureus (MRSA) screen. The patient stated that she did not need oxygen anymore. Her oxygen saturation was 98% on 2 liters nasal cannula and she was having a nosebleed, which she states happens all the time when she has oxygen. She feels better. She had acute kidney injury and was treated with IV fluids. PAST MEDICAL HISTORY: Significant for: 1. History of pseudomonas pneumonia in March 2021 treated with IV meropenem. 2. Mycobacterium avium complex colonization. Repeat acid-fast bacilli (AFB), sputum culture as an outpatient were negative and therefore, that was felt to be just colonization and not real infection. 3. Chronic obstructive pulmonary disease (COPD). 4. Chronic HFpEF heart failure with preserved ejection fraction. 5. Moderate pulmonary hypertension. 6. Aortic valve sclerosis without stenosis. 7. Chronic kidney disease. 8. Non-insulin dependent diabetes with A1C of 6.4 off insulin. 9. Left lower extremity deep venous thrombosis (DVT) with inferior vena cava (IVC) filter. 10. Type 2 Mobitz block with pacemaker. 11. Gastroesophageal reflux disease. 12. Glaucoma. 13. Macular degeneration. 14. History of upper gastrointestinal (GI) bleed. PAST SURGICAL HISTORY: 1. Small bowel obstruction due to adhesions. 2. Total colectomy. 3. Hysterectomy. 4. Cholecystectomy. 5. Appendectomy. 6. Breast biopsy. 7. Bilateral cataract surgery. SOCIAL HISTORY: She was . Her recently . 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 FAMILY HISTORY: History of coronary artery disease. ALLERGIES: ANGIOTENSIN CONVERTING ENZYME (DG) INHIBITORS, PENICILLIN, QUINOLONES, DEXAMETHASONE, LOSARTAN, STATINS, POLYMYXIN. MEDICATIONS: - vancomycin 1000 mg IV every 24 hours - ceftriaxone 1 gram IV every 24 hours - Zithromax 500 mg IV every 24 hours - torsemide 10 mg daily - Senokot two tablets by mouth daily - pantoprazole 40 mg by mouth daily - ferrous gluconate 324 mg daily - calcitriol 0.25 mg daily - allopurinol 100 mg daily - Carafate 1 gram by mouth twice a day - sodium bicarbonate 325 mg by mouth twice a day - fluticasone two puffs inhaled twice a day - Xarelto 15 mg daily - Xalatan one drop both eyes at bedtime - Azopt 1 drop both eyes twice a day - insulin sliding scale - albuterol LABORATORY DATA: White count 6.1, down from 13.4, hemoglobin 9.1, hematocrit 28, platelets 203, 87% neutrophils, 9% lymphocytes, 3% monocytes. Erythrocyte sedimentation rate (ESR) 89. C-reactive protein (CRP) 20.1. Sodium 138, potassium 3.6, chloride 110, bicarbonate 19, BUN 57, creatinine 1.68, glucose 258, lactic acid 0.9, calcium 8, magnesium 1.7. Bilirubin 0.2, AST 4, ALT 11, alkaline phosphatase 96. Brain natriuretic peptide (BNP) 3335. Procalcitonin 0.62. Thyroid stimulating hormone (TSH) 0.564, Free T4 1.27. Blood cultures, two sets, were negative on 06/22/2021. Respiratory panel was negative. Methicillin-resistant Staphylococcus aureus (MRSA) screen was positive. Urine Legionaire antigen, pneumococcal antigen are pending. IMAGING DATA: Chest x-ray showed bilateral opacities at both bases. Renal ultrasound showed chronic renal disease with atrophy consistent with age. Chest CT shows adenopathy. No pleural or pericardial effusion. Hiatal hernia noted. Evaluation of the lung ernandez shows significant improvement compared to previous CT done on 03/13/2021. Residual opacities are noted on the left especially, but there is no cavitation. PHYSICAL EXAMINATION: IMPRESSION: This is an 86-year-old female with a history of chronic obstructive pulmonary disease (COPD), heart failure, with previous hospitalization with pseudomonas pneumonia and sputum culture positive for mycobacterium avium complex admitted with recurrent pulmonary symptoms of cough, shortness of breath, hypoxia, also with some dysuria and abdominal pain. It seemed to me like she had a viral illness with nasal congestion, clear nasal discharge, possibly a sinusitis with postnasal drip. Chest CT does not show any new infiltrate and showed marked improvement from March of 2021, which makes mycobacterium avium complex a much less likely diagnosis. This was probably just colonization. She does not have cavitary pneumonia and does not have reticular nodular infiltrates to suggest nontuberculous mycobacteria. Even though patient is an methicillin-resistant Staphylococcus aureus (MRSA) carrier, patient does not have MRSA pneumonia. Her cough is mostly nonproductive. Her white count is normal without even vancomycin treatment and she has improved with ceftriaxone and Zithromax. PLAN: Discontinue IV vancomycin. Patient does not need coverage for MRSA, even though her MRSA screen was positive. Continue with IV ceftriaxone 1 gram every 24 hours. Discontinue IV Zithromax. Switch to doxycycline 100 mg by mouth twice a day. There is no need to treat for mycobacterium avium complex at this time. Send another sputum acid-fast bacilli (AFB) smear and culture. So far, she has had three negative ones after the one positive in March 2021. QuantiFERON-TB Gold was negative in March and therefore, patient does not need isolation to obtain sputum for nontuberculous mycobacterium.
[2021-06-24] MEDS: cefTRIAXone SOD 1 GM in D5W MINI-BAG PLUS 50 ML IV SCH (11:51)
[2021-06-24 14:00] VITALS: BP 102/56
[2021-06-24] MEDS ORDERED: VANCOMYCIN HCL 1,000 MG, VIAL MATE ADAPTER 1 EACH in NS 250 ML IV SCH (14:00)
[2021-06-24] MEDS ORDERED: POTASSIUM CHLORIDE 10MEQ SR TABLET PO ONE (18:55)
--- NOTE | 2021-06-24 19:05 | IPNPDOC ---
Text Note Date of Service The patient was seen on 06/24/21. NOTE Subjective: no any acute events overnight. Patient denied fever, chills, na usea, secondary dysuria Objective: GENERAL APPEARANCE: NAD HEENT: no scleral icterus, no JVD, EOMI CARDIOVASCULAR: S1S2 LUNGS: Diminished lung sounds bilaterally ABDOMEN: soft & not tender w palpation MUSCULOSKELETAL: no cyanosis, no swelling INTEGUMENT: no generalized pallor NEUROLOGICAL: cranial nerve function from 2-12 intact, follows commands, speech not dysarthric ASSESSMENT AND PLAN: 86-year-old female with a past medical history of CAD, HFpEF, pulmonary hypertension, aortic valve sclerosis without stenosis, COPD not O2 dependent, CKD 3, type 2 diabetes, 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 Patient was admitted with pneumonia as well as GUY and urinary tract infection. Community-acquired pneumonia Patient had previous hospitalization with pseudomonas pneumonia and sputum culture positive for mycobacterium avium complex admitted with recurrent pulmonary symptoms of cough, shortness of breath, hypoxia, also with some dysuria and abdominal pain. Dr. Donaldson consulted patient, she thinks marked pneumonia unlikely due to improvement of infiltrates on the CT scan. She recommended to continue ceftriaxone IV and doxycycline 100 mg twice daily for 7 days. Patient has had had three negative AFB after the one positive in March 2021 UTI UA shows pyuria Await urine culture Continue to physical therapy GUY on CKD 3 Improved Continue to monitor HFpEF BNP is elevated in ER at 3300. Continue torsemide Patient euvolemic on the physical exam Hx COPD COPD stable. Continue with home inhalers: albuterol and advair Hypomagnesemia/hypokalemia replaced CAD with RCA stent - stenting in 2004 - patient does not take ASA or plavix, there is hx of GI bleeding - c/w Xarelto AOCD - Hgb at baseline Follow-up with PCP for work-up Hx of Mobitz Type II heart block s/p pacemaker NIDDM - hold oral meds - ISS AC and HS - hypoglycemic precautions Chronic BLE DVT s/p IVC filter 04/2019 - xarelto Glaucoma and macular degeneration - resume home eye drops, patient brought own meds - Latanoprost and brinzolamide Code status: DNR/DNI VS,Fishbone, I+O VS, Fishbone, I+O Laboratory Tests 06/24/21 08:12 Vital Signs Date Time Temp Pulse Resp B/P (MAP) Pulse Ox O2 Delivery O2 Flow Rate FiO2 06/24/21 14:00 98.2 74 18 102/56 (71) 96 Room Air 06/23/21 21:00 2.0 I&O- Last 24 Hours up to 6 AM 06/24/21 06:00 Intake Total 2890 ml Output Total 600 ml Balance 2290 ml SILVIA ZALDIVAR DO Jun 24, 2021 19:05
[2021-06-24] MEDS: RIVAROXABAN 15 MG TAB (XARELTO) PO SCH (20:41)
[2021-06-24] MEDS: LATANOPROST 0.005% OPHTH SOLN 2.5 ML OU SCH (20:42)
[2021-06-24 22:00] VITALS: BP 104/58
[2021-06-25 06:00] VITALS: BP 131/58
[2021-06-25 06:38] LABS: BASO % 0.2 % (0.0-1.0); EOS # 0.1 10^3/uL (0.0-0.5); EOS % 1.6 % (0.0-3.0); HEMATOCRIT 27.9 % (36.0-47.0); HEMOGLOBIN 8.9 g/dl (12.0-15.5); MEAN CORPUSCULAR HEMOGLOBIN 28.3 pg (27.0-33.0); MEAN CORPUSCULAR HGB CONC 31.9 g/dl (32.0-36.5); MEAN CORPUSCULAR VOLUME 88.6 fl (80.0-96.0); MONO # 0.9 10^3/uL (0.0-0.8); MONO % 10.5 % (2.0-8.0); NEUTROPHILS # 5.3 10^3/uL (1.5-8.5); NEUTROPHILS % 63.5 % (36.0-66.0); PLATELET COUNT, AUTOMATED 299 10^3/uL (150-450); RED BLOOD COUNT 3.15 10^6/uL (4.00-5.40); WHITE BLOOD COUNT 8.4 10^3/uL (4.0-10.0)
[2021-06-25 07:15] LABS: ALBUMIN 1.9 GM/DL (3.2-5.2); BILIRUBIN,TOTAL 0.2 MG/DL (0.2-1.0); CALCIUM LEVEL 8.3 MG/DL (8.8-10.2); CREATININE FOR GFR 1.3 MG/DL (0.55-1.30); GLOMERULAR FILTRATION RATE 41.5 (>32); MAGNESIUM LEVEL 1.7 MG/DL (1.8-2.4); POTASSIUM SERUM 4.1 MEQ/L (3.5-5.1); TOTAL PROTEIN 4.8 GM/DL (6.4-8.2)
[2021-06-25] MEDS: ADVAIR HFA 230/21MCG INHALER INH SCH ×2 (08:14→20:31)
[2021-06-25] MEDS: SUCRALFATE 1 GM TAB PO SCH ×2 (08:29→21:16)
[2021-06-25] MEDS: DOXYCYCLINE HYCLATE 100MG TABLET PO SCH ×2 (08:29→21:16)
[2021-06-25] MEDS: FERROUS GLUCONATE 324 MG TAB PO SCH (08:29)
[2021-06-25] MEDS: SODIUM BICARBONATE 325 MG TAB PO SCH ×2 (08:29→21:15)
[2021-06-25] MEDS: allopurinoL 100 MG TAB PO SCH (08:29)
[2021-06-25] MEDS: SENOKOT S TAB PO SCH (08:29)
[2021-06-25] MEDS: CALCITRIOL 0.25 MCG CAP (S0169) PO SCH (08:29)
[2021-06-25] MEDS: TORSEMIDE 10 MG TABLET PO SCH (08:29)
[2021-06-25] MEDS: PANTOPRAZOLE 40MG TAB (PROTONIX) PO SCH (08:29)
[2021-06-25] MEDS: BRINZOLAMIDE 1 % OPHTH SUSP (AZOPT) 10ML OU SCH ×2 (08:31→21:15)
[2021-06-25] MEDS: HumaLOG INSULIN (NovoLOG) PER UNIT SC SCH ×4 (08:33→21:00)
[2021-06-25] MEDS ORDERED: FLUBLOK(EGG FREE)(QUAD)INFLUENZA VACC 0.5ML SYRINGE 18YRS & OLDER IM ONE (09:00)
--- NOTE | 2021-06-25 09:51 | IPN ---
PROGRESS NOTE DATE: 06/24/2021 TIME: Patient was seen at 5 p.m. SUBJECTIVE: Gabby seems to be doing very well. She is off oxygen. She states her cough and shortness of breath have improved. Initially, on admission she had some abdominal pain and dysuria that also has resolved. OBJECTIVE: VITAL SIGNS: Temperature is 98.5, pulse is 73, respirations are 18, blood pressure is 104/58, O2 sat 92% to 96% on room air. HEART: Normal S1 and S2. No murmurs. LUNGS: A few expiratory wheezes bilaterally. ABDOMEN: Soft, nontender. No hepatosplenomegaly. EXTREMITIES: No cyanosis, clubbing or edema. LABORATORY DATA: White count 10.3, hemoglobin 8.8, hematocrit 27.3, platelets 258,000, 71% neutrophils, 20% lymphocytes, 6% monocytes. Sodium is 143, potassium is 3.4, chloride is 116, bicarbonate 19, BUN 49, creatinine 1.34. Glucose is 131, calcium is 8.2. Magnesium is 2, AST is 5, ALT 10, alkaline phosphatase is 80. CRP is 20.1, total protein 4.7, albumin of 1.9. Procalcitonin on admission was 0.62. Sputum culture done on 06/24 is pending. Urine culture from 06/22 is still pending which is unusual and I will be calling the lab. Chest x-ray showed increased bilateral opacities but chest CT showed marked improvement of infiltrates compared to 06/23/21. Patient with evidence of mediastinal adenopathy which remains unchanged. Lung ernandez have markedly improved. There are some irregular opacities particularly in the lower lobes. IMPRESSION: 1. Pneumonia involving lower lobes. Patient on Ceftriaxone and Doxycycline. She could be switched to Cefdinir and Doxycycline and be hopefully [facility] tomorrow. Urine Legionnaire antigen is pending. Pneumococcal antigen is pending. Even though MRSA screen was positive, the patient does not have MRSA pneumonia. She did not have any cavitations on CT and does not have purulent phlegm. 2. Urinary tract infection. Urine culture is pending. Most likely treated with IV Ceftriaxone as her symptoms have resolved. PLAN: Case was discussed with Dr. Slade, Hospitalist on service. Patient will be switched to Cefdinir and Doxycycline for a total of seven days of antibiotics and hopefully be able to go the [facility] tomorrow.
[2021-06-25] MEDS: cefTRIAXone SOD 1 GM in D5W MINI-BAG PLUS 50 ML IV SCH (11:29)
[2021-06-25 14:00] VITALS: BP 102/58
--- NOTE | 2021-06-25 16:40 | IPNPDOC ---
Text Note Date of Service The patient was seen on 06/25/21. NOTE Subjective: no any acute events overnight. 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 Patient was admitted with pneumonia as well as GUY and urinary tract infection. Community-acquired pneumonia Patient had previous hospitalization with pseudomonas pneumonia and sputum culture positive for mycobacterium avium complex admitted with recurrent pulmonary symptoms of cough, shortness of breath, hypoxia, also with some dysuria and abdominal pain. Dr. Donaldson consulted patient, she thinks marked pneumonia unlikely due to improvement of infiltrates on the CT scan. She recommended to continue ceftriaxone IV and doxycycline 100 mg twice daily for 7 days. Patient has had had three negative AFB after the one positive in March 2021 UTI UA shows pyuria urine culture positive for Klebsiella pneumonia and Streptococcus anginosus sensitive to cephalosporin Continue to physical therapy Continued cefdinir and doxycycline p.o. GUY on CKD 3 Improved Continue to monitor HFpEF BNP is elevated in ER at 3300. Continue torsemide Patient euvolemic on the physical exam Hx COPD COPD stable. Continue with home inhalers: albuterol and advair Hypomagnesemia/hypokalemia replaced CAD with RCA stent - stenting in 2004 - patient does not take ASA or plavix, there is hx of GI bleeding - c/w Xarelto AOCD - Hgb at baseline Follow-up with PCP for work-up Hx of Mobitz Type II heart block s/p pacemaker NIDDM - hold oral meds - ISS AC and HS - hypoglycemic precautions Chronic BLE DVT s/p IVC filter 04/2019 - tommy Glaucoma and macular degeneration - resume home eye drops, patient brought own meds - Latanoprost and brinzolamide Code status: DNR/DNI Patient will be transferred to [facility] VSJosie, I+O VSJosie, I+O Laboratory Tests 06/25/21 06:07 Vital Signs Date Time Temp Pulse Resp B/P (MAP) Pulse Ox O2 Delivery O2 Flow Rate FiO2 06/25/21 14:00 98.8 73 18 102/58 (73) 97 Room Air 06/23/21 21:00 2.0 I&O- Last 24 Hours up to 6 AM 06/25/21 06:00 Intake Total 650 ml Output Total 600 ml Balance 50 ml SILVIA ZALDIVAR DO Jun 25, 2021 16:40
[2021-06-25 17:38] LABS: FOLATE 7.7 NG/ML
[2021-06-25] MEDS: RIVAROXABAN 15 MG TAB (XARELTO) PO SCH (21:15)
[2021-06-25] MEDS: LATANOPROST 0.005% OPHTH SOLN 2.5 ML OU SCH (21:15)
[2021-06-26 06:00] VITALS: BP 130/46
[2021-06-26 07:23] LABS: BASO % 0.5 % (0.0-1.0); EOS # 0.2 10^3/uL (0.0-0.5); EOS % 2.5 % (0.0-3.0); HEMATOCRIT 30.7 % (36.0-47.0); HEMOGLOBIN 9.9 g/dl (12.0-15.5); LYMPH # 1.9 10^3/uL (1.5-5.0); LYMPH % 23.1 % (24.0-44.0); MEAN CORPUSCULAR HEMOGLOBIN 28.3 pg (27.0-33.0); MEAN CORPUSCULAR HGB CONC 32.2 g/dl (32.0-36.5); MEAN CORPUSCULAR VOLUME 87.7 fl (80.0-96.0); MONO # 0.9 10^3/uL (0.0-0.8); MONO % 10.5 % (2.0-8.0); NEUTROPHILS # 5.2 10^3/uL (1.5-8.5); NEUTROPHILS % 62.8 % (36.0-66.0); PLATELET COUNT, AUTOMATED 312 10^3/uL (150-450); WHITE BLOOD COUNT 8.4 10^3/uL (4.0-10.0)
[2021-06-26] MEDS: HumaLOG INSULIN (NovoLOG) PER UNIT SC SCH (07:30)
[2021-06-26] MEDS ORDERED: CEFD300CAP PO (07:31)
[2021-06-26] MEDS ORDERED: AZOP0.2S OU (07:31)
[2021-06-26] MEDS ORDERED: DOXY100T PO (07:31)
[2021-06-26] MEDS ORDERED: XALA0.007 OU (07:31)
[2021-06-26] MEDS ORDERED: IPRAINH INH (07:36)
[2021-06-26 07:44] LABS: ALBUMIN 2.2 GM/DL (3.2-5.2); BILIRUBIN,TOTAL 0.3 MG/DL (0.2-1.0); CALCIUM LEVEL 8.3 MG/DL (8.8-10.2); CREATININE FOR GFR 1.32 MG/DL (0.55-1.30); GLOMERULAR FILTRATION RATE 40.8 (>32); MAGNESIUM LEVEL 1.6 MG/DL (1.8-2.4); POTASSIUM SERUM 3.7 MEQ/L (3.5-5.1); TOTAL PROTEIN 5.3 GM/DL (6.4-8.2)
[2021-06-26] MEDS: ADVAIR HFA 230/21MCG INHALER INH SCH (07:58)
[2021-06-26] MEDS: TORSEMIDE 10 MG TABLET PO SCH (08:44)
[2021-06-26] MEDS: SUCRALFATE 1 GM TAB PO SCH (08:44)
[2021-06-26] MEDS: SODIUM BICARBONATE 325 MG TAB PO SCH (08:44)
[2021-06-26] MEDS: DOXYCYCLINE HYCLATE 100MG TABLET PO SCH (08:44)
[2021-06-26] MEDS: SENOKOT S TAB PO SCH (08:44)
[2021-06-26] MEDS: PANTOPRAZOLE 40MG TAB (PROTONIX) PO SCH (08:44)
[2021-06-26] MEDS: CALCITRIOL 0.25 MCG CAP (S0169) PO SCH (08:44)
[2021-06-26] MEDS: FERROUS GLUCONATE 324 MG TAB PO SCH (08:45)
[2021-06-26] MEDS: BRINZOLAMIDE 1 % OPHTH SUSP (AZOPT) 10ML OU SCH (08:45)
[2021-06-26] MEDS ORDERED: CEFDINIR 300 MG CAP (OMNICEF) PO SCH (09:00)
--- NOTE | 2021-06-26 17:24 | DS.PDOC ---
Discharge Summary General Date of Admission Jun 22, 2021 at 12:15 Date of Discharge 06/26/21 Discharge Summary PROCEDURES PERFORMED DURING STAY: [None]. 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 HISTORY OF PRESENT ILLNESS: 86-year-old female with a past medical history of CAD, HFpEF, pulmonary hypertension, aortic valve sclerosis without stenosis, COPD not O2 dependent, CKD 3, type 2 diabetes, 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 Patient was admitted with pneumonia as well as GUY and urinary tract infection. 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 Dr. Donaldson consulted patient, she thinks MAC pneumonia unlikely due to improvement of infiltrates on the CT scan. She recommended to continue cefdinir and doxycycline for 7 days in total. Patient has had had three negative AFB after the one positive in March 2021 UTI UA showed pyuria urine culture positive for Klebsiella pneumonia and Streptococcus anginosus sensitive to cephalosporin Patient received course of antibiotic therapy. GUY on CKD 3 Resolved HFpEF BNP is elevated in ER at 3300. Continue torsemide Patient euvolemic on the physical exam Hx COPD COPD stable. 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 ALLERGIES: Please see below. PHYSICAL EXAMINATION ON DISCHARGE: VITAL SIGNS: Please see below. GENERAL APPEARANCE: NAD HEENT: no scleral icterus, no JVD, EOMI CARDIOVASCULAR: S1S2 LUNGS: Diminished lung sounds bilaterally ABDOMEN: soft & not tender w palpation MUSCULOSKELETAL: no cyanosis, no swelling INTEGUMENT: no generalized pallor NEUROLOGICAL: cranial nerve function from 2-12 intact, follows commands, speech not dysarthric LABORATORY DATA: Please see below. IMAGING: [facility] NAME: SILVIA BAER DATE OF : 1935 AGE: 86 SEX: F REPORT #: [id number] ROOM: [facility] TECHNOLOGIST: PAULPENDING SALE TO [facility] DOCTOR: ORD FOX MD Ordered for Date&Time: 06/23/21 0950 cc: [~ rep ct ivnm] Service Date&Time: This report is in Signed status. If this report is in a DRAFT status it has not yet been reviewed by the radiologist for accuracy. Thank you for having your radiology procedures performed at [facility] RADIOLOGY REPORT Date&Time printed: [~ rep prt dt last] [~ rep prt tm last] Page [address] [address] RADIOLOGY REPORT This report is in Signed status. If this report is in a DRAFT status it has not yet been reviewed by the radiologist for accuracy. Thank you for having your radiology procedures performed at [facility] RADIOLOGY REPORT Date&Time printed: [~ rep prt dt last] [~ rep prt tm last] Page 1 of 1 INDICATION: pna COMPARISON: Multiple the latest 03/13/2021 also without contrast TECHNIQUE: Standard helical technique without intravenous contrast. This causes exam limitations particularly when evaluating the mediastinum and pulmonary rony. FINDINGS: There is evidence of mediastinal adenopathy status quo. Hilar adenopathy cannot be ruled out. There are no pleural or pericardial effusions. The imaged upper abdomen and imaged osseous structures appear unchanged. There is a hiatal hernia status quo. There are spinal degenerative changes status quo. Evaluation of the lung ernandez shows significant improvement in the previously present patchy and irregular airspace opacities particularly in the lower lobes. Residuals do, however, persist particularly on the left. No new abnormal nodules, masses, or opacities have developed. IMPRESSION: 1. Adenopathy as described above. 2. Lung field improvement as described above. <Electronically signed by Feliz Chester > 06/23/21 1323 DD: Feliz Chester MD DO 06/23/219 DT: MM 06/23/211322 DS: PHIEMELYN 06/23/219 06/23/21 131 [~ rep ct labl] PROGNOSIS: Fair ACTIVITY: [As tolerated]. DISPOSITION: [facility]. ITEMS TO FOLLOWUP ON ON OUTPATIENT: Follow-up with PCP DISCHARGE CONDITION: [Stable]. TIME SPENT ON DISCHARGE:40 minutes. Vital Signs/I&Os Vital Signs Date Time Temp Pulse Resp B/P (MAP) Pulse Ox O2 Delivery O2 Flow Rate FiO2 06/26/21 06:00 98.7 71 18 130/46 (74) 91 Room Air 06/23/21 21:00 2.0 I&O- Last 24 Hours up to 6 AM 06/26/21 06:00 Intake Total 1600 ml Output Total 1200 ml Balance 400 ml Laboratory Data Labs 24H Laboratory Tests 2 06/25/21 20:46: Bedside Glucose (Misc Panel) 210H 06/26/21 06:41: Immature Granulocyte % (Auto) 0.6, Neutrophils (%) (Auto) 62.8, Lymphocytes (%) (Auto) 23.1L, Monocytes (%) (Auto) 10.5H, Eosinophils (%) (Auto) 2.5, Basophils (%) (Auto) 0.5, Neutrophils # (Auto) 5.2, Lymphocytes # (Auto) 1.9, Monocytes # (Auto) 0.9H, Eosinophils # (Auto) 0.2, Basophils # (Auto) 0.0, Nucleated Red Blood Cells % (auto) 0.0, Anion Gap 11, Glomerular Filtration Rate 40.8, Calcium Level 8.3L, Magnesium Level 1.6L, Total Bilirubin 0.3, Aspartate Amino Transf (AST/SGOT) 8, Alanine Aminotransferase (ALT/SGPT) 12, Alkaline Phosphatase 93, Total Protein 5.3L, Albumin 2.2L, Albumin/Globulin Ratio 0.7L 06/26/21 07:30: Coronavirus (COVID-19)(PCR) NEGATIVE CBC/BMP Laboratory Tests 06/26/21 06:41 FSBS Laboratory Tests Test 06/25/21 20:46 Range/Units Bedside Glucose (Misc Panel) 210 83-110 MG/DL Microbiology Microbiology 06/24/21 Gram Stain - Final, Complete 06/24/21 Sputum Culture - Final, Complete Klebsiella Pneumoniae Yeast Like Organism 06/24/21 Acid Fast Stain - Final, Resulted 06/24/21 Mycobacterial Culture, Resulted Pending 06/22/21 Urine Culture - Final, Complete Klebsiella Pneumoniae Strep Anginosus Grp 06/22/21 Respiratory Virus Panel (PCR) (ROBLES) - Final, Complete 06/22/21 Blood Culture - Preliminary, Resulted No Growth after 72 hours. All specime... 06/22/21 Blood Culture - Preliminary, Resulted No Growth after 72 hours. All specime... Discharge Medications Scheduled Allopurinol (Allopurinol) 100 Mg Tablet, 100 MG PO DAILY, (Reported) Brinzolamide (Azopt) 1% 10ML Drops.susp, 1 DROP OU BID Calcitriol (Calcitriol) 0.25 Mcg Capsule, 0.25 MCG PO DAILY, (Reported) Cefdinir (Cefdinir) 300 Mg Capsule, 600 MG PO DAILY Cholecalciferol (Vitamin D3) (Vitamin D3) 50 Mcg Capsule, 50 MCG PO DAILY, (Reported) Doxycycline Hyclate (Doxycycline Hyclate) 100 Mg Tablet, 100 MG PO BID Ferrous Gluconate (Ferrous Gluconate) 324 Mg Tablet, 324 MG PO DAILY, (Reported) Ipratropium Distant (Atrovent Hfa) 12.9 Gm Hfa.aer.ad, 2 PUFF INH QID Latanoprost (Xalatan) 0.005% 2.5ML Drops, 1 DROP OU QHS Pantoprazole Sodium (Pantoprazole Sodium) 40 Mg Tablet.dr, 40 MG PO DAILY, (Reported) Rivaroxaban (Xarelto) 15 Mg Tablet, 15 MG PO QPM, (Reported) 1700 Salmeterol/Fluticasone (Advair 500-50 Diskus) 1 Each Blst.w.dev, 1 PUFF INH BID, (Reported) Sennosides/Docusate Sodium (Senna-S Tablet) 1 Each Tablet, 2 TAB PO DAILY, (Reported) Sodium Bicarbonate (Sodium Bicarbonate) 325 Mg Tablet, 325 MG PO BID, (Reported) Sucralfate (Sucralfate) 1 Gm Tablet, 1 GM PO BID, (Reported) Torsemide (Torsemide) 10 Mg Tablet, 10 MG PO DAILY, (Reported) Vit C/E/Zn/Coppr/Lutein/Zeaxan (Preservision Areds 2 Softgel) 1 Each Capsule, 1 CAP PO BID, (Reported) Scheduled PRN Acetaminophen (Acetaminophen ER) 650 Mg Tablet.er, 650 MG PO Q8H PRN for PAIN/FEVER, (Reported) Albuterol Sulf (Albuterol Sulfate) 2.5 Mg/3 Ml Vial.neb, 2.5 MG INH QID PRN for SHORTNESS OF BREATH, (Reported) Diclofenac Sodium (Diclofenac Sodium) 1% 100GM Gel..gram., 4 GM TOP QID PRN for PAIN, (Reported) APPLY TO AREAS OF MUSCLE ACHE Fluticasone Propionate (Fluticasone Propionate) 16 Gm [place].susp, 1 SPRAY NARES DAILY PRN for CONGESTION, (Reported) Guaifenesin (Mucinex) 600 Mg Tab.er.12h, 600 MG PO BID PRN for CONGESTION, (Reported) Magnesium Hydroxide (Milk of Magnesia) 400 Mg/5 Ml Oral.susp, 2,400 MG PO DAILY PRN for CONSTIPATION, (Reported) Nitroglycerin (Nitrostat) 0.4 Mg Tab.subl, 0.4 MG SL NITRO PRN for CHEST PAIN, (Reported) Allergies Coded Allergies: carvedilol (Verified Allergy, Severe, difficulty breathing, 06/22/21) pitavastatin (Verified Allergy, Severe, anaphylaxis, 06/22/21) Penicillins (Verified Allergy, Mild, rash, 06/22/21) Quinolones (Verified Allergy, Mild, rash, 06/22/21) DG Inhibitors (Verified Adverse Reaction, Intermediate, kidney problems / cough, 06/22/21) dexamethasone (Verified Adverse Reaction, Intermediate, eyes burn, 06/22/21) dorzolamide (Verified Adverse Reaction, Intermediate, eyes burn, 06/22/21) neomycin (Verified Adverse Reaction, Intermediate, eyes burn, 06/22/21) polymyxin B (Verified Adverse Reaction, Intermediate, eyes burn, 06/22/21) timolol (Verified Adverse Reaction, Intermediate, eyes burn, 06/22/21) colesevelam (Verified Adverse Reaction, Mild, myalgia, 06/22/21) ezetimibe (Verified Adverse Reaction, Mild, myalgia, 06/22/21) losartan (Verified Adverse Reaction, Mild, nausea / no appetite, 06/22/21) SILVIA ZALDIVAR DO Jun 26, 2021 17:23
[2021-07-02 17:07] LABS: BODY FLUID CULTURE Not indicated. (.); LEGIONELLA ANTIGEN URINE Negative (Negative); ORGANISM ID Not indicated. (.); SPECIMEN SOURCE Urine (.); URINE STREP PNEUMONIAE ANTIGEN Negative (Negative)
== END 2021-06-26 10:00 | disposition home health service (06) | DRG 178 ==
LOC: EDBD 09:01 → M ED 09:01 → M ED INP 12:15 → ENRESERV 13:15 → M MSPAV 14:08
PROVIDERS: ADMIT Family Medicine; ATTEND Internal Medicine
DX: J15.0 Pneumonia due to Klebsiella pneumoniae (principal); N17.9 Acute kidney failure, unspecified; N39.0 Urinary tract infection, site not specified; I50.32 Chronic diastolic (congestive) heart failure; N18.30 Chronic kidney disease, stage 3 unspecified; J44.9 Chronic obstructive pulmonary disease, unspecified; I25.10 Atherosclerotic heart disease of native coronary artery without angina pectoris; D63.8 Anemia in other chronic diseases classified elsewhere; E11.22 Type 2 diabetes mellitus with diabetic chronic kidney disease; H40.9 Unspecified glaucoma; H35.30 Unspecified macular degeneration; Z66 Do not resuscitate; E83.42 Hypomagnesemia; E87.6 Hypokalemia; I44.1 Atrioventricular block, second degree; I35.8 Other nonrheumatic aortic valve disorders; I27.20 Pulmonary hypertension, unspecified; B96.1 Klebsiella pneumoniae [K. pneumoniae] as the cause of diseases classified elsewhere; Z79.899 Other long term (current) drug therapy; Z88.0 Allergy status to penicillin; Z88.1 Allergy status to other antibiotic agents; Z88.8 Allergy status to other drugs, medicaments and biological substances; Z95.828 Presence of other vascular implants and grafts; Z86.718 Personal history of other venous thrombosis and embolism; Z95.0 Presence of cardiac pacemaker; Z79.01 Long term (current) use of anticoagulants; Z87.891 Personal history of nicotine dependence; Z90.49 Acquired absence of other specified parts of digestive tract; Z98.41 Cataract extraction status, right eye; Z98.42 Cataract extraction status, left eye

== ENCOUNTER → 2021-08-25 | Outpatient (REF) | payer MEDICARE ==
[~2021-08-25] MED LIST changes: +AZIT-12 PO; +CARA1TAB6 PO; -CEFD1CAP8 PO; +CEFD300C41 PO; +CEFD300CAP PO; +CEFU50TA PO; +ETHA1TAB2 PO; +FERR325T18 PO; +FLUTISP NARES; +INSUHUMDS SC; +IPRAINH INH; +LASI20TA3 PO; +LASI40TA9 PO; -LEVO250T12 PO; +LEVO250T3 PO; +LOPE2CAP PO; +MUCI600T31 PO; +OMEP-173 PO; -OMEP-218 PO; -OMEP-221 PO; +OMEP40CA5 PO; +POTA-151 PO; -POTA20TA6 PO; +RIFA30CA PO; +TESS100C PO; +XALA0.007 OU; +[UNRECOGNIZED DRUG - CODE] PO
== END ==
PROVIDERS: ATTEND Internal Medicine Infectious Disease
DX: R05.3 Chronic cough (principal); R06.02 Shortness of breath; R11.0 Nausea

== ENCOUNTER → 2021-09-24 | Outpatient (REF) | payer MEDICARE | PROVIDERS: ATTEND Internal Medicine | DX: Z20.822 Contact with and (suspected) exposure to COVID-19 (principal) ==

== ENCOUNTER → 2021-10-13 | Outpatient (REF) | payer MEDICARE | LOC: M LAB REF 11:53 | PROVIDERS: ATTEND Internal Medicine Infectious Disease | DX: A31.0 Pulmonary mycobacterial infection (principal) ==

== ENCOUNTER → 2021-10-22 | Outpatient (CLI) | payer MEDICARE ==
[~2021-10-22] MED LIST changes: +ACET32TAB PO; +ASPI81CH33 PO; +GLUC1LIQ7 PO; +MICR1TAB5 PO; +SENN-80 PO; +TRAN1DIS4 TOP
== END ==
LOC: M WHC 10:15
PROVIDERS: ATTEND Student in an Organized Health Care Education/Training Program
DX: M81.0 Age-related osteoporosis without current pathological fracture (principal); Z13.820 Encounter for screening for osteoporosis

== ENCOUNTER → 2021-10-27 | Outpatient (REF) | payer MEDICARE ==
[~2021-10-27] MED LIST changes: -ACET32TAB PO; -ASPI81CH33 PO; -GLUC1LIQ7 PO; -MICR1TAB5 PO; -SENN-80 PO; -TRAN1DIS4 TOP
[2021-10-27 11:26] LABS: HEMOGLOBIN A1c 6.6 %
== END ==
PROVIDERS: ATTEND Family Medicine
DX: E11.9 Type 2 diabetes mellitus without complications (principal)

== ENCOUNTER → 2021-11-10 | Outpatient (REF) | payer MEDICARE | PROVIDERS: ATTEND Internal Medicine Infectious Disease | DX: A31.0 Pulmonary mycobacterial infection (principal) ==

== ENCOUNTER 2021-11-14 15:14 | Inpatient (IN) | payer MEDICARE ==
[~2021-11-14] VITALS: Ht 167.6 cm; Wt 58.3 kg
[~2021-11-14 15:14] MED LIST changes: -ACET32TAB PO; -ASPI81CH33 PO; -GLUC1LIQ7 PO; -MICR1TAB5 PO; -SENN-80 PO; -TRAN1DIS4 TOP
[2021-11-14 16:56] LABS: ALBUMIN 3.1 GM/DL (3.2-5.2); BILIRUBIN,DIRECT 0.2 MG/DL (0.0-0.2); BILIRUBIN,TOTAL 0.3 MG/DL (0.2-1.0); CALCIUM LEVEL 8.8 MG/DL (8.8-10.2); CREATININE FOR GFR 1.11 MG/DL (0.55-1.30); FREE T4 1.16 NG/DL (0.76-1.46); GLOMERULAR FILTRATION RATE 49.9 (>32); POTASSIUM SERUM 4.4 MEQ/L (3.5-5.1); THYROID STIMULATING HORMONE 2.13 uIU/ML (0.358-3.740); TOTAL PROTEIN 5.5 GM/DL (6.4-8.2)
[2021-11-14 17:44] LABS: BASO % 0.5 % (0.0-1.0); EOS # 0.1 10^3/uL (0.0-0.5); EOS % 1.4 % (0.0-3.0); HEMATOCRIT 34.1 % (36.0-47.0); HEMOGLOBIN 11.6 g/dl (12.0-15.5); LYMPH # 1.5 10^3/uL (1.5-5.0); LYMPH % 19.1 % (24.0-44.0); MEAN CORPUSCULAR HEMOGLOBIN 28.6 pg (27.0-33.0); MEAN CORPUSCULAR VOLUME 84.2 fl (80.0-96.0); MONO # 0.6 10^3/uL (0.0-0.8); MONO % 8.4 % (2.0-8.0); NEUTROPHILS # 5.4 10^3/uL (1.5-8.5); NEUTROPHILS % 70.3 % (36.0-66.0); PLATELET COUNT, AUTOMATED 235 10^3/uL (150-450); RED BLOOD COUNT 4.05 10^6/uL (4.00-5.40); WHITE BLOOD COUNT 7.6 10^3/uL (4.0-10.0)
[2021-11-14 18:25] LABS: RSV AMPLIFICATION NEGATIVE (NEGATIVE)
[2021-11-14 19:02] LABS: CREATININE,RANDOM URINE 32.8 MG/DL
[2021-11-14] MEDS ORDERED: SUCR1TAB56 PO (20:23)
[2021-11-14] MEDS ORDERED: MICR1TAB5 PO (20:23)
[2021-11-14] MEDS ORDERED: GLUC1LIQ7 PO (20:23)
[2021-11-14] MEDS ORDERED: FURO20TA2 PO (20:23)
[2021-11-14] MEDS ORDERED: ASPI81CH33 PO (20:23)
[2021-11-14] MEDS ORDERED: GLUCAGON INJ 1MG VIAL SC PRN (20:25)
[2021-11-14] MEDS ORDERED: DEXTROSE 50% 50 ML SYRINGE IV PRN (20:25)
[2021-11-14] MEDS ORDERED: ACETAMINOPHEN TAB 650MG DOSE (2X325MG) PO PRN (20:25)
[2021-11-14] MEDS ORDERED: SENN-80 PO (20:25)
[2021-11-14] MEDS ORDERED: GLUCOSE 4GM CHEW TABLET PO PRN (20:25)
[2021-11-14] MEDS ORDERED: ACET32TAB PO (20:25)
[2021-11-14] MEDS ORDERED: TRAN1DIS4 TOP (20:27)
[2021-11-14] MEDS ORDERED: SENNA 8.6 MG TAB (SENOKOT) PO PRN (20:30)
[2021-11-14] MEDS ORDERED: guaiFENesin ER 600 MG TAB PO PRN (20:30)
[2021-11-14] MEDS ORDERED: HOME MED LIST COMPLETE! XX SCH (20:30)
[2021-11-14] MEDS ORDERED: ONDANSETRON 4 MG TAB PO PRN (20:30)
[2021-11-14] MEDS ORDERED: ALBUTEROL 90 MCG/ACT 8GM HFA INHALER INH PRN (20:30)
[2021-11-14] MEDS ORDERED: MOM 30ML SUSPENSION UDC PO PRN (20:30)
[2021-11-14] MEDS ORDERED: ALBUTEROL SULFATE 2.5 MG/0.5 ML INH NEB SOLN INH PRN (20:30)
[2021-11-14] MEDS ORDERED: SCOPOLAMINE 1MG TRANSDERMAL PATCH TOP PRN (20:30)
[2021-11-15] MEDS ORDERED: UNRESOLVED CLARIFICATION ENTRY XX SCH (00:01)
[2021-11-15] MEDS: SODIUM BICARBONATE 325 MG TAB PO SCH ×3 (02:42→21:39)
[2021-11-15] MEDS: LATANOPROST 0.005% OPHTH SOLN 2.5 ML OU SCH ×2 (02:43→21:40)
[2021-11-15] MEDS: BRINZOLAMIDE 1 % OPHTH SUSP (AZOPT) 10ML OU SCH ×3 (02:43→21:40)
[2021-11-15] MEDS: SUCRALFATE 1 GM TAB PO SCH ×5 (02:43→21:39)
[2021-11-15] MEDS: allopurinoL 100 MG TAB PO SCH (07:45)
[2021-11-15] MEDS: PANTOPRAZOLE 40MG TAB (PROTONIX) PO SCH (07:45)
[2021-11-15] MEDS: ASPIRIN 81 MG CHEW TABLET PO SCH (07:45)
[2021-11-15] MEDS: LACTOBACILLUS ACIDOPHILUS CAP (BACID) PO SCH (07:45)
[2021-11-15] MEDS: FERROUS SULFATE 325MG TAB PO SCH (07:45)
[2021-11-15] MEDS: SENOKOT S TAB PO SCH (07:46)
[2021-11-15] MEDS: ENOXAPARIN 40MG/0.4ML SYRINGE (J1650 PER 10MG) SC SCH (07:47)
[2021-11-15 07:50] LABS: BASO % 0.7 % (0.0-1.0); EOS # 0.1 10^3/uL (0.0-0.5); EOS % 1.9 % (0.0-3.0); HEMATOCRIT 28.8 % (36.0-47.0); LYMPH # 1.1 10^3/uL (1.5-5.0); LYMPH % 18.5 % (24.0-44.0); MEAN CORPUSCULAR HEMOGLOBIN 29.1 pg (27.0-33.0); MEAN CORPUSCULAR HGB CONC 34.7 g/dl (32.0-36.5); MEAN CORPUSCULAR VOLUME 83.7 fl (80.0-96.0); MONO # 0.6 10^3/uL (0.0-0.8); MONO % 9.7 % (2.0-8.0); NEUTROPHILS # 3.9 10^3/uL (1.5-8.5); PLATELET COUNT, AUTOMATED 207 10^3/uL (150-450); RED BLOOD COUNT 3.44 10^6/uL (4.00-5.40); WHITE BLOOD COUNT 5.7 10^3/uL (4.0-10.0)
[2021-11-15] MEDS: FLUTICASONE PROP 0.05% NASAL SPRAY 16 GM (FLONASE) NARES SCH (08:01)
[2021-11-15] MEDS: CALCITRIOL 0.25 MCG CAP (S0169) PO SCH (08:01)
[2021-11-15 08:19] LABS: CALCIUM LEVEL 8.8 MG/DL (8.8-10.2); CREATININE FOR GFR 1.01 MG/DL (0.55-1.30); GLOMERULAR FILTRATION RATE 55.6 (>32); MAGNESIUM LEVEL 1.8 MG/DL (1.8-2.4)
[2021-11-15] MEDS: ADVAIR HFA 230/21MCG INHALER INH SCH (20:12)
[2021-11-15 21:41] VITALS: BP 131/63
[2021-11-16 06:17] VITALS: BP 131/58
[2021-11-16 06:26] VITALS: BP_SYST 123; BP_SYST 135; BP_SYST 98; BP_DIAS 54; BP_DIAS 60; BP_DIAS 63
[2021-11-16] MEDS: ADVAIR HFA 230/21MCG INHALER INH SCH ×2 (08:08→19:25)
[2021-11-16 08:34] LABS: HEMATOCRIT 28.7 % (36.0-47.0); HEMOGLOBIN 9.8 g/dl (12.0-15.5); MEAN CORPUSCULAR HEMOGLOBIN 29.1 pg (27.0-33.0); MEAN CORPUSCULAR HGB CONC 34.1 g/dl (32.0-36.5); MEAN CORPUSCULAR VOLUME 85.2 fl (80.0-96.0); PLATELET COUNT, AUTOMATED 202 10^3/uL (150-450); RED BLOOD COUNT 3.37 10^6/uL (4.00-5.40); WHITE BLOOD COUNT 5.2 10^3/uL (4.0-10.0)
[2021-11-16] MEDS: PANTOPRAZOLE 40MG TAB (PROTONIX) PO SCH (08:59)
[2021-11-16] MEDS: SENOKOT S TAB PO SCH ×2 (08:59→09:00)
[2021-11-16] MEDS: LACTOBACILLUS ACIDOPHILUS CAP (BACID) PO SCH (08:59)
[2021-11-16] MEDS: SODIUM BICARBONATE 325 MG TAB PO SCH ×2 (08:59→21:04)
[2021-11-16] MEDS: CALCITRIOL 0.25 MCG CAP (S0169) PO SCH (08:59)
[2021-11-16] MEDS: FERROUS SULFATE 325MG TAB PO SCH (08:59)
[2021-11-16] MEDS: SUCRALFATE 1 GM TAB PO SCH ×4 (08:59→21:04)
[2021-11-16] MEDS: ASPIRIN 81 MG CHEW TABLET PO SCH (08:59)
[2021-11-16] MEDS: FLUTICASONE PROP 0.05% NASAL SPRAY 16 GM (FLONASE) NARES SCH (08:59)
[2021-11-16] MEDS: allopurinoL 100 MG TAB PO SCH (08:59)
[2021-11-16] MEDS: ENOXAPARIN 40MG/0.4ML SYRINGE (J1650 PER 10MG) SC SCH (09:00)
[2021-11-16] MEDS: NS 500 ML IV SCH ×2 (09:01→15:06)
[2021-11-16] MEDS: BRINZOLAMIDE 1 % OPHTH SUSP (AZOPT) 10ML OU SCH ×2 (09:01→21:04)
[2021-11-16 09:03] LABS: CALCIUM LEVEL 8.7 MG/DL (8.8-10.2); CREATININE FOR GFR 1.11 MG/DL (0.55-1.30); GLOMERULAR FILTRATION RATE 49.9 (>32); MAGNESIUM LEVEL 1.8 MG/DL (1.8-2.4); POTASSIUM SERUM 4.1 MEQ/L (3.5-5.1)
[2021-11-16 12:00] VITALS: BP_SYST 115; BP_SYST 117; BP_SYST 122; BP_DIAS 56; BP_DIAS 58
[2021-11-16 14:00] VITALS: BP 124/62
[2021-11-16 15:32] VITALS: BP 136/60
[2021-11-16] MEDS: LATANOPROST 0.005% OPHTH SOLN 2.5 ML OU SCH (21:04)
[2021-11-16 22:00] VITALS: BP 139/58
[2021-11-17 06:00] VITALS: BP 136/56
[2021-11-17 06:43] LABS: HEMATOCRIT 27.4 % (36.0-47.0); HEMOGLOBIN 9.4 g/dl (12.0-15.5); MEAN CORPUSCULAR HEMOGLOBIN 28.9 pg (27.0-33.0); MEAN CORPUSCULAR HGB CONC 34.3 g/dl (32.0-36.5); MEAN CORPUSCULAR VOLUME 84.3 fl (80.0-96.0); PLATELET COUNT, AUTOMATED 203 10^3/uL (150-450); RED BLOOD COUNT 3.25 10^6/uL (4.00-5.40); WHITE BLOOD COUNT 5.2 10^3/uL (4.0-10.0)
[2021-11-17 07:11] LABS: CALCIUM LEVEL 8.5 MG/DL (8.8-10.2); GLOMERULAR FILTRATION RATE 56.2 (>32); POTASSIUM SERUM 4.1 MEQ/L (3.5-5.1)
[2021-11-17] MEDS: ADVAIR HFA 230/21MCG INHALER INH SCH (07:34)
[2021-11-17] MEDS: FLUTICASONE PROP 0.05% NASAL SPRAY 16 GM (FLONASE) NARES SCH (08:36)
[2021-11-17] MEDS: BRINZOLAMIDE 1 % OPHTH SUSP (AZOPT) 10ML OU SCH (08:36)
[2021-11-17] MEDS: SUCRALFATE 1 GM TAB PO SCH ×2 (08:37→12:38)
[2021-11-17] MEDS: FERROUS SULFATE 325MG TAB PO SCH (08:37)
[2021-11-17] MEDS: ASPIRIN 81 MG CHEW TABLET PO SCH (08:37)
[2021-11-17] MEDS: SENOKOT S TAB PO SCH (08:37)
[2021-11-17] MEDS: SODIUM BICARBONATE 325 MG TAB PO SCH (08:37)
[2021-11-17] MEDS: CALCITRIOL 0.25 MCG CAP (S0169) PO SCH (08:37)
[2021-11-17] MEDS: LACTOBACILLUS ACIDOPHILUS CAP (BACID) PO SCH (08:37)
[2021-11-17] MEDS: ENOXAPARIN 40MG/0.4ML SYRINGE (J1650 PER 10MG) SC SCH (08:37)
[2021-11-17] MEDS: PANTOPRAZOLE 40MG TAB (PROTONIX) PO SCH (08:37)
[2021-11-17] MEDS: allopurinoL 100 MG TAB PO SCH (08:38)
[2021-11-17] MEDS ORDERED: ETHAMBUTOL 400MG TAB PO SCH (09:00)
[2021-11-17] MEDS ORDERED: rifAMPin 150MG CAPSULE PO SCH (09:00)
[2021-11-17] MEDS ORDERED: AZITHROMYCIN 250MG TABLET PO SCH (09:00)
[2021-11-17 14:00] VITALS: BP 177/74
== END 2021-11-17 14:47 | DRG 641 ==
LOC: M ED 15:14 → EDBD 15:14 → M ED INP 15:15 → OBSVTOIN 11-16 12:40 → ENRESERV 11-16 13:13 → M MSPAV 11-16 15:32
PROVIDERS: ADMIT Family Medicine; ATTEND Internal Medicine
DX: E87.1 Hypo-osmolality and hyponatremia (principal); I13.0 Hypertensive heart and chronic kidney disease with heart failure and stage 1 through stage 4 chronic kidney disease, or unspecified chronic kidney disease; I50.32 Chronic diastolic (congestive) heart failure; I48.20 Chronic atrial fibrillation, unspecified; E11.22 Type 2 diabetes mellitus with diabetic chronic kidney disease; K21.9 Gastro-esophageal reflux disease without esophagitis; J44.9 Chronic obstructive pulmonary disease, unspecified; K57.90 Diverticulosis of intestine, part unspecified, without perforation or abscess without bleeding; D64.9 Anemia, unspecified; R54 Age-related physical debility; Z66 Do not resuscitate; Z79.82 Long term (current) use of aspirin; Z79.899 Other long term (current) drug therapy; Z88.0 Allergy status to penicillin; Z88.8 Allergy status to other drugs, medicaments and biological substances; N18.30 Chronic kidney disease, stage 3 unspecified; Z95.0 Presence of cardiac pacemaker; Z90.49 Acquired absence of other specified parts of digestive tract; Z98.41 Cataract extraction status, right eye; Z98.42 Cataract extraction status, left eye; Z87.891 Personal history of nicotine dependence; Z20.822 Contact with and (suspected) exposure to COVID-19; Z95.828 Presence of other vascular implants and grafts

== ENCOUNTER → 2021-11-14 | Outpatient (CLI) | payer MEDICARE ==
[~2021-11-14] MED LIST changes: +ACET32TAB PO; +ASPI81CH33 PO; +GLUC1LIQ7 PO; +MICR1TAB5 PO; +SENN-80 PO; +TRAN1DIS4 TOP
[2021-11-14 14:11] LABS: CALCIUM LEVEL 9.1 MG/DL (8.8-10.2); CREATININE FOR GFR 1.12 MG/DL (0.55-1.30); GLOMERULAR FILTRATION RATE 49.3 (>32); POTASSIUM SERUM 4.2 MEQ/L (3.5-5.1)
[2021-11-14 15:10] LABS: URIC ACID 5.8 MG/DL (2.6-6.0)
[2021-11-14 17:42] LABS: APPEARANCE, URINE CLOUDY (CLEAR); BACTERIA, URINE AUTO 1+ (NEGATIVE); BILIRUBIN, URINE AUTO NEGATIVE (NEGATIVE); BLOOD, URINE BLOOD NEGATIVE (NEGATIVE); COLOR, URINE AMBER (YELLOW); GLUCOSE, URINE (UA) AUTO NEGATIVE (NEGATIVE); KETONE, URINE AUTO NEGATIVE (NEGATIVE); LEUKOCYTE ESTERASE, URINE AUTO 3+ (NEGATIVE); NITRITE, URINE AUTO POSITIVE (NEGATIVE); PROTEIN, URINE AUTO 1+ mg/dL (NEGATIVE); RBC, URINE AUTO 1 /HPF (0-3); SQUAMOUS EPITHELIAL CELL UR AU 6 /HPF (0-6); UROBILINOGEN, URINE AUTO 0.2 mg/dL (0.0-2.0); WBC, URINE AUTO TNTC /HPF (0-3)
[2021-11-14 17:42] LABS: CREATININE, URINE 67.3 MG/DL; MALB URINE SIEMENS 56.6 MG/L; MAU/CREAT RATIO 84.1 MCG/MG (0.0-30.0)
[2021-11-14 17:44] LABS: SODIUM,RANDOM URINE 28 MEQ/L
[2021-11-14 17:55] LABS: OSMOLALITY URINE 319 MOSM/KG (50-1400)
[2021-11-14 22:24] LABS: HEMOGLOBIN A1c 6.8 %
== END ==
LOC: M PLALAB 09:53
PROVIDERS: ATTEND Family Medicine
DX: E11.9 Type 2 diabetes mellitus without complications (principal)

== ENCOUNTER → 2021-12-03 | Outpatient (REF) | payer MEDICARE ==
[~2021-12-03] MED LIST changes: +ACET32TAB PO; +ASPI81CH33 PO; +GLUC1LIQ7 PO; +MICR1TAB5 PO; +SENN-80 PO; +TRAN1DIS4 TOP
[2021-12-03 11:02] LABS: BASO # 0.1 10^3/uL (0.0-0.2); BASO % 0.9 % (0.0-1.0); EOS # 0.1 10^3/uL (0.0-0.5); EOS % 1.5 % (0.0-3.0); HEMATOCRIT 27.3 % (36.0-47.0); HEMOGLOBIN 9.4 g/dl (12.0-15.5); LYMPH # 1.5 10^3/uL (1.5-5.0); LYMPH % 27.5 % (24.0-44.0); MEAN CORPUSCULAR HEMOGLOBIN 29.1 pg (27.0-33.0); MEAN CORPUSCULAR HGB CONC 34.4 g/dl (32.0-36.5); MEAN CORPUSCULAR VOLUME 84.5 fl (80.0-96.0); MONO # 0.5 10^3/uL (0.0-0.8); MONO % 9.8 % (2.0-8.0); NEUTROPHILS # 3.2 10^3/uL (1.5-8.5); NEUTROPHILS % 60.1 % (36.0-66.0); PLATELET COUNT, AUTOMATED 208 10^3/uL (150-450); RED BLOOD COUNT 3.23 10^6/uL (4.00-5.40); WHITE BLOOD COUNT 5.4 10^3/uL (4.0-10.0)
[2021-12-03 11:27] LABS: ALBUMIN 2.8 GM/DL (3.2-5.2); CREATININE FOR GFR 1.02 MG/DL (0.55-1.30); PHOSPHORUS LEVEL 3.9 MG/DL (2.5-4.9); POTASSIUM SERUM 3.9 MEQ/L (3.5-5.1)
[2021-12-03 11:34] LABS: PTH INTACT 13.3 PG/ML (18.5-88.0)
[2021-12-03 17:28] LABS: APPEARANCE, URINE CLOUDY (CLEAR); BACTERIA, URINE AUTO 3+ (NEGATIVE); BILIRUBIN, URINE AUTO NEGATIVE (NEGATIVE); BLOOD, URINE BLOOD 1+ (NEGATIVE); COLOR, URINE AMBER (YELLOW); GLUCOSE, URINE (UA) AUTO NEGATIVE (NEGATIVE); KETONE, URINE AUTO NEGATIVE (NEGATIVE); LEUKOCYTE ESTERASE, URINE AUTO 3+ (NEGATIVE); NITRITE, URINE AUTO POSITIVE (NEGATIVE); PROTEIN, URINE AUTO 1+ mg/dL (NEGATIVE); RBC, URINE AUTO 11 /HPF (0-3); SPECIFIC GRAVITY URINE AUTO 1.009 (1.002-1.035); SQUAMOUS EPITHELIAL CELL UR AU 0 /HPF (0-6); UROBILINOGEN, URINE AUTO 0.2 mg/dL (0.0-2.0); WBC, URINE AUTO TNTC /HPF (0-3)
== END ==
PROVIDERS: ATTEND Internal Medicine Nephrology
DX: N18.32 Chronic kidney disease, stage 3b (principal); M1A.30X0 Chronic gout due to renal impairment, unspecified site, without tophus (tophi); R53.1 Weakness

== ENCOUNTER → 2021-12-08 | Outpatient (REF) | payer MEDICARE ==
[~2021-12-08] MED LIST changes: +ALBU2.5V10 INH; -ALBU83IN INH; +ATIV1TAB10 PO; +D3 S1CAP PO; +FLUTISP; -FLUTISP NARES; +HYOS125TA PO; +JANT7.5T PO; +LOVE0.4I2 SC; +MORP1SOL5 PO; +RISATAB3 PO; +WARF-18 PO; +WARF4TAB51 PO; +XARE10TA PO
[2021-12-08 11:08] LABS: URIC ACID 5.2 MG/DL (2.6-6.0)
[2021-12-08 11:21] LABS: PTH INTACT 21.8 PG/ML (18.5-88.0)
== END ==
PROVIDERS: ATTEND Nurse Practitioner Family
DX: M1A.30X0 Chronic gout due to renal impairment, unspecified site, without tophus (tophi) (principal); N25.81 Secondary hyperparathyroidism of renal origin

== ENCOUNTER → 2021-12-08 | Outpatient (REF) | payer MEDICARE ==
[~2021-12-08] MED LIST changes: -ALBU2.5V10 INH; +ALBU83IN INH; -ATIV1TAB10 PO; -D3 S1CAP PO; -HYOS125TA PO; -JANT7.5T PO; -LOVE0.4I2 SC; -MORP1SOL5 PO; -RISATAB3 PO; -WARF-18 PO; -WARF4TAB51 PO; -XARE10TA PO
[2021-12-09 13:12] LABS: APPEARANCE, URINE CLOUDY (CLEAR); BACTERIA, URINE AUTO 3+ (NEGATIVE); BILIRUBIN, URINE AUTO NEGATIVE (NEGATIVE); BLOOD, URINE BLOOD NEGATIVE (NEGATIVE); COLOR, URINE AMBER (YELLOW); GLUCOSE, URINE (UA) AUTO NEGATIVE (NEGATIVE); KETONE, URINE AUTO NEGATIVE (NEGATIVE); LEUKOCYTE ESTERASE, URINE AUTO 3+ (NEGATIVE); MUCUS, URINE SMALL (NEGATIVE); NITRITE, URINE AUTO POSITIVE (NEGATIVE); PROTEIN, URINE AUTO NEGATIVE (NEGATIVE); RBC, URINE AUTO 2 /HPF (0-3); SPECIFIC GRAVITY URINE AUTO 1.005 (1.002-1.035); SQUAMOUS EPITHELIAL CELL UR AU 1 /HPF (0-6); UROBILINOGEN, URINE AUTO 0.2 mg/dL (0.0-2.0); WBC, URINE AUTO 174 /HPF (0-3)
== END ==
PROVIDERS: ATTEND Family Medicine
DX: R53.1 Weakness (principal)

== ENCOUNTER 2021-12-14 10:02 | Inpatient (IN) | payer MEDICARE ==
[~2021-12-14] VITALS: Ht 165.1 cm; Wt 58.3 kg
[~2021-12-14 10:02] MED LIST changes: +JANT7.5T PO; +LOVE0.4I2 SC
[2021-12-14] MEDS ORDERED: NITROGLYCERIN 0.4 MG SUBL TABLET SL PRN (10:10)
[2021-12-14] MEDS ORDERED: ACETAMINOPHEN TAB 650MG DOSE (2X325MG) PO PRN (10:10)
[2021-12-14] MEDS ORDERED: ALBUTEROL 90 MCG/ACT 8GM HFA INHALER INH PRN (10:10)
[2021-12-14 14:00] VITALS: BP 142/68
[2021-12-14] MEDS ORDERED: HOME MED LIST COMPLETE! XX SCH (15:00)
[2021-12-14] MEDS: REMEDY PHYTOPLEX Z-GUARD PASTE 113GM TUBE (FROM STOREROOM PRODUCT) TOP SCH ×2 (16:00→20:11)
[2021-12-14] MEDS ORDERED: WARFARIN SOD 7.5MG TAB PO SCH (17:00)
[2021-12-14] MEDS: ALBUTEROL 90 MCG/ACT 8GM HFA INHALER INH SCH ×2 (17:03→20:00)
[2021-12-14] MEDS: SUCRALFATE 1 GM TAB PO SCH ×2 (17:42→20:10)
[2021-12-14] MEDS: LACTOBACILLUS ACIDOPHILUS CAP (BACID) PO SCH ×2 (17:43→20:10)
[2021-12-14 20:00] VITALS: BP 152/72
[2021-12-14] MEDS: ADVAIR HFA 230/21MCG INHALER INH SCH (20:02)
[2021-12-14] MEDS: DOCUSATE SODIUM 100MG CAPSULE PO SCH (20:06)
[2021-12-14] MEDS: SENNA 8.6 MG TAB (SENOKOT) PO SCH (20:07)
[2021-12-14] MEDS: PANTOPRAZOLE 40MG TAB (PROTONIX) PO SCH (20:10)
[2021-12-14] MEDS: SODIUM BICARBONATE 325 MG TAB PO SCH (20:10)
[2021-12-14] MEDS: CEFDINIR 300 MG CAP (OMNICEF) PO SCH (20:10)
[2021-12-14] MEDS: ENOXAPARIN 60MG/0.6ML SYRINGE (J1650 PER 10MG) SC SCH (20:11)
[2021-12-14] MEDS: BRINZOLAMIDE 1 % OPHTH SUSP (AZOPT) 10ML OU SCH (20:11)
[2021-12-14] MEDS: LATANOPROST 0.005% OPHTH SOLN 2.5 ML OU SCH (20:11)
[2021-12-15] MEDS: ALBUTEROL 90 MCG/ACT 8GM HFA INHALER INH SCH ×4 (05:57→19:28)
[2021-12-15] MEDS: ADVAIR HFA 230/21MCG INHALER INH SCH ×2 (05:57→19:28)
[2021-12-15 06:00] VITALS: BP 151/67
[2021-12-15 07:07] LABS: BASO % 0.5 % (0.0-1.0); EOS # 0.1 10^3/uL (0.0-0.5); HEMATOCRIT 27.1 % (36.0-47.0); HEMOGLOBIN 9.1 g/dl (12.0-15.5); LYMPH # 2.2 10^3/uL (1.5-5.0); LYMPH % 34.1 % (24.0-44.0); MEAN CORPUSCULAR HEMOGLOBIN 29.3 pg (27.0-33.0); MEAN CORPUSCULAR HGB CONC 33.6 g/dl (32.0-36.5); MEAN CORPUSCULAR VOLUME 87.1 fl (80.0-96.0); MONO # 0.5 10^3/uL (0.0-0.8); MONO % 8.2 % (2.0-8.0); NEUTROPHILS # 3.6 10^3/uL (1.5-8.5); NEUTROPHILS % 54.7 % (36.0-66.0); PLATELET COUNT, AUTOMATED 211 10^3/uL (150-450); RED BLOOD COUNT 3.11 10^6/uL (4.00-5.40); WHITE BLOOD COUNT 6.5 10^3/uL (4.0-10.0)
[2021-12-15 07:24] LABS: INR 2.67; PROTHROMBIN TIME 28.8 SECONDS (12.7-14.5)
[2021-12-15 07:28] LABS: ALBUMIN 2.6 GM/DL (3.2-5.2); BILIRUBIN,TOTAL 0.3 MG/DL (0.2-1.0); CALCIUM LEVEL 8.5 MG/DL (8.8-10.2); CREATININE FOR GFR 1.07 MG/DL (0.55-1.30); POTASSIUM SERUM 3.7 MEQ/L (3.5-5.1); TOTAL PROTEIN 4.8 GM/DL (6.4-8.2)
[2021-12-15] MEDS: rifAMPin 150MG CAPSULE PO SCH (08:23)
[2021-12-15] MEDS: SUCRALFATE 1 GM TAB PO SCH ×4 (08:23→20:11)
[2021-12-15] MEDS: FERROUS SULFATE 325MG TAB PO SCH (08:23)
[2021-12-15] MEDS: CEFDINIR 300 MG CAP (OMNICEF) PO SCH ×2 (08:23→20:11)
[2021-12-15] MEDS: ASPIRIN 81MG ENTERIC TABLET PO SCH (08:23)
[2021-12-15] MEDS: PANTOPRAZOLE 40MG TAB (PROTONIX) PO SCH ×2 (08:23→20:11)
[2021-12-15] MEDS: TORSEMIDE 10 MG TABLET PO SCH (08:24)
[2021-12-15] MEDS: LACTOBACILLUS ACIDOPHILUS CAP (BACID) PO SCH ×4 (08:24→20:11)
[2021-12-15] MEDS: SODIUM BICARBONATE 325 MG TAB PO SCH ×2 (08:24→20:11)
[2021-12-15] MEDS: CALCITRIOL 0.25 MCG CAP (S0169) PO SCH (08:24)
[2021-12-15] MEDS: allopurinoL 100 MG TAB PO SCH (08:24)
[2021-12-15] MEDS: DOCUSATE SODIUM 100MG CAPSULE PO SCH ×2 (08:24→20:11)
[2021-12-15] MEDS: AZITHROMYCIN 250MG TABLET PO SCH (08:24)
[2021-12-15] MEDS: BRINZOLAMIDE 1 % OPHTH SUSP (AZOPT) 10ML OU SCH ×2 (08:25→20:12)
[2021-12-15] MEDS: FLUTICASONE PROP 0.05% NASAL SPRAY 16 GM (FLONASE) NARES SCH (08:25)
[2021-12-15] MEDS: ETHAMBUTOL 400MG TAB PO SCH (08:25)
[2021-12-15] MEDS: ENOXAPARIN 60MG/0.6ML SYRINGE (J1650 PER 10MG) SC SCH (08:26)
[2021-12-15] MEDS: REMEDY PHYTOPLEX Z-GUARD PASTE 113GM TUBE (FROM STOREROOM PRODUCT) TOP SCH ×3 (08:26→20:12)
[2021-12-15 14:00] VITALS: BP 159/69
[2021-12-15] MEDS ORDERED: WARFARIN SOD 5MG TAB PO SCH (17:00)
[2021-12-15 20:00] VITALS: BP 114/60
[2021-12-15] MEDS: SENNA 8.6 MG TAB (SENOKOT) PO SCH (20:12)
[2021-12-15] MEDS: LATANOPROST 0.005% OPHTH SOLN 2.5 ML OU SCH (20:12)
[2021-12-16 06:00] VITALS: BP 155/69
[2021-12-16] MEDS: ALBUTEROL 90 MCG/ACT 8GM HFA INHALER INH SCH ×4 (07:49→20:10)
[2021-12-16] MEDS: ADVAIR HFA 230/21MCG INHALER INH SCH ×2 (07:49→20:10)
[2021-12-16 08:00] VITALS: BP 155/69
[2021-12-16 08:02] LABS: INR 3.49; PROTHROMBIN TIME 35.3 SECONDS (12.7-14.5)
[2021-12-16] MEDS: DOCUSATE SODIUM 100MG CAPSULE PO SCH ×2 (09:00→20:54)
[2021-12-16] MEDS: LACTOBACILLUS ACIDOPHILUS CAP (BACID) PO SCH ×4 (09:09→20:54)
[2021-12-16] MEDS: CEFDINIR 300 MG CAP (OMNICEF) PO SCH ×2 (09:09→20:54)
[2021-12-16] MEDS: BRINZOLAMIDE 1 % OPHTH SUSP (AZOPT) 10ML OU SCH ×2 (09:10→20:55)
[2021-12-16] MEDS: CALCITRIOL 0.25 MCG CAP (S0169) PO SCH (09:10)
[2021-12-16] MEDS: PANTOPRAZOLE 40MG TAB (PROTONIX) PO SCH ×2 (09:10→20:54)
[2021-12-16] MEDS: SUCRALFATE 1 GM TAB PO SCH ×4 (09:10→20:54)
[2021-12-16] MEDS: FERROUS SULFATE 325MG TAB PO SCH (09:10)
[2021-12-16] MEDS: REMEDY PHYTOPLEX Z-GUARD PASTE 113GM TUBE (FROM STOREROOM PRODUCT) TOP SCH ×3 (09:10→20:55)
[2021-12-16] MEDS: FLUTICASONE PROP 0.05% NASAL SPRAY 16 GM (FLONASE) NARES SCH (09:10)
[2021-12-16] MEDS: allopurinoL 100 MG TAB PO SCH (09:10)
[2021-12-16] MEDS: ASPIRIN 81MG ENTERIC TABLET PO SCH (09:11)
[2021-12-16] MEDS: SODIUM BICARBONATE 325 MG TAB PO SCH ×2 (09:11→20:54)
[2021-12-16 14:00] VITALS: BP 169/71
[2021-12-16 20:00] VITALS: BP 155/70
[2021-12-16] MEDS: SENNA 8.6 MG TAB (SENOKOT) PO SCH (20:55)
[2021-12-16] MEDS: LATANOPROST 0.005% OPHTH SOLN 2.5 ML OU SCH (20:55)
[2021-12-17 06:00] VITALS: BP 144/64
[2021-12-17] MEDS: ADVAIR HFA 230/21MCG INHALER INH SCH ×2 (07:31→20:10)
[2021-12-17] MEDS: ALBUTEROL 90 MCG/ACT 8GM HFA INHALER INH SCH ×4 (07:32→20:11)
[2021-12-17 07:51] LABS: BASO % 0.4 % (0.0-1.0); EOS # 0.2 10^3/uL (0.0-0.5); EOS % 1.9 % (0.0-3.0); HEMATOCRIT 28.2 % (36.0-47.0); HEMOGLOBIN 9.5 g/dl (12.0-15.5); LYMPH # 1.9 10^3/uL (1.5-5.0); LYMPH % 22.7 % (24.0-44.0); MEAN CORPUSCULAR HEMOGLOBIN 29.7 pg (27.0-33.0); MEAN CORPUSCULAR HGB CONC 33.7 g/dl (32.0-36.5); MEAN CORPUSCULAR VOLUME 88.1 fl (80.0-96.0); MONO # 0.6 10^3/uL (0.0-0.8); MONO % 7.2 % (2.0-8.0); NEUTROPHILS # 5.5 10^3/uL (1.5-8.5); NEUTROPHILS % 67.3 % (36.0-66.0); PLATELET COUNT, AUTOMATED 252 10^3/uL (150-450); WHITE BLOOD COUNT 8.2 10^3/uL (4.0-10.0)
[2021-12-17 08:08] LABS: INR 2.31; PROTHROMBIN TIME 25.8 SECONDS (12.7-14.5)
[2021-12-17 08:17] LABS: CREATININE FOR GFR 1.03 MG/DL (0.55-1.30); GLOMERULAR FILTRATION RATE 54.3 (>32); POTASSIUM SERUM 3.6 MEQ/L (3.5-5.1)
[2021-12-17] MEDS: DOCUSATE SODIUM 100MG CAPSULE PO SCH ×2 (09:00→19:35)
[2021-12-17] MEDS: ETHAMBUTOL 400MG TAB PO SCH (09:19)
[2021-12-17] MEDS: rifAMPin 150MG CAPSULE PO SCH (09:19)
[2021-12-17] MEDS: AZITHROMYCIN 250MG TABLET PO SCH (09:20)
[2021-12-17] MEDS: PANTOPRAZOLE 40MG TAB (PROTONIX) PO SCH ×2 (09:20→20:06)
[2021-12-17] MEDS: allopurinoL 100 MG TAB PO SCH (09:20)
[2021-12-17] MEDS: ASPIRIN 81MG ENTERIC TABLET PO SCH (09:20)
[2021-12-17] MEDS: FERROUS SULFATE 325MG TAB PO SCH (09:20)
[2021-12-17] MEDS: SUCRALFATE 1 GM TAB PO SCH ×4 (09:20→20:05)
[2021-12-17] MEDS: SODIUM BICARBONATE 325 MG TAB PO SCH ×2 (09:20→20:05)
[2021-12-17] MEDS: CEFDINIR 300 MG CAP (OMNICEF) PO SCH (09:20)
[2021-12-17] MEDS: CALCITRIOL 0.25 MCG CAP (S0169) PO SCH (09:20)
[2021-12-17] MEDS: LACTOBACILLUS ACIDOPHILUS CAP (BACID) PO SCH ×4 (09:20→20:05)
[2021-12-17] MEDS: TORSEMIDE 10 MG TABLET PO SCH (09:21)
[2021-12-17] MEDS: REMEDY PHYTOPLEX Z-GUARD PASTE 113GM TUBE (FROM STOREROOM PRODUCT) TOP SCH ×3 (09:21→20:06)
[2021-12-17] MEDS: FLUTICASONE PROP 0.05% NASAL SPRAY 16 GM (FLONASE) NARES SCH (09:21)
[2021-12-17] MEDS: BRINZOLAMIDE 1 % OPHTH SUSP (AZOPT) 10ML OU SCH ×2 (09:22→20:06)
[2021-12-17 14:00] VITALS: BP 157/70
[2021-12-17] MEDS ORDERED: WARFARIN SOD 3MG TAB PO SCH (17:00)
[2021-12-17] MEDS: SENNA 8.6 MG TAB (SENOKOT) PO SCH (19:35)
[2021-12-17 20:00] VITALS: BP 110/58
[2021-12-17] MEDS: LATANOPROST 0.005% OPHTH SOLN 2.5 ML OU SCH (20:06)
[2021-12-18 06:00] VITALS: BP 136/68
[2021-12-18 06:40] LABS: PROTHROMBIN TIME 93.3 SECONDS (12.7-14.5)
[2021-12-18 06:43] LABS: INR 12.46
[2021-12-18] MEDS: ALBUTEROL 90 MCG/ACT 8GM HFA INHALER INH SCH ×4 (08:00→20:00)
[2021-12-18] MEDS: ADVAIR HFA 230/21MCG INHALER INH SCH ×2 (08:15→20:00)
[2021-12-18 08:52] LABS: INR 1.79; PROTHROMBIN TIME 21.2 SECONDS (12.7-14.5)
[2021-12-18] MEDS: ASPIRIN 81MG ENTERIC TABLET PO SCH (08:53)
[2021-12-18] MEDS: SUCRALFATE 1 GM TAB PO SCH ×4 (08:53→20:05)
[2021-12-18] MEDS: PANTOPRAZOLE 40MG TAB (PROTONIX) PO SCH ×2 (08:53→20:05)
[2021-12-18] MEDS: allopurinoL 100 MG TAB PO SCH (08:53)
[2021-12-18] MEDS: LACTOBACILLUS ACIDOPHILUS CAP (BACID) PO SCH ×4 (08:53→20:05)
[2021-12-18] MEDS: SODIUM BICARBONATE 325 MG TAB PO SCH ×2 (08:53→20:05)
[2021-12-18] MEDS: FERROUS SULFATE 325MG TAB PO SCH (08:53)
[2021-12-18] MEDS: CALCITRIOL 0.25 MCG CAP (S0169) PO SCH (08:53)
[2021-12-18] MEDS: FLUTICASONE PROP 0.05% NASAL SPRAY 16 GM (FLONASE) NARES SCH (08:54)
[2021-12-18] MEDS: BRINZOLAMIDE 1 % OPHTH SUSP (AZOPT) 10ML OU SCH ×2 (08:54→20:05)
[2021-12-18] MEDS: REMEDY PHYTOPLEX Z-GUARD PASTE 113GM TUBE (FROM STOREROOM PRODUCT) TOP SCH ×3 (08:54→20:06)
[2021-12-18] MEDS: DOCUSATE SODIUM 100MG CAPSULE PO SCH ×2 (08:54→18:58)
[2021-12-18 14:00] VITALS: BP 118/64
[2021-12-18] MEDS ORDERED: WARFARIN SOD 4MG TAB PO SCH (17:00)
[2021-12-18] MEDS: SENNA 8.6 MG TAB (SENOKOT) PO SCH (18:58)
[2021-12-18 20:00] VITALS: BP 110/54
[2021-12-18] MEDS: LATANOPROST 0.005% OPHTH SOLN 2.5 ML OU SCH (20:05)
[2021-12-19 06:00] VITALS: BP 100/52
[2021-12-19] MEDS: ALBUTEROL 90 MCG/ACT 8GM HFA INHALER INH SCH ×4 (07:10→19:49)
[2021-12-19] MEDS: ADVAIR HFA 230/21MCG INHALER INH SCH ×2 (07:10→19:48)
[2021-12-19 07:11] LABS: BASO % 0.5 % (0.0-1.0); EOS # 0.1 10^3/uL (0.0-0.5); EOS % 2.1 % (0.0-3.0); HEMATOCRIT 26.3 % (36.0-47.0); HEMOGLOBIN 8.8 g/dl (12.0-15.5); LYMPH % 30.2 % (24.0-44.0); MEAN CORPUSCULAR HEMOGLOBIN 29.1 pg (27.0-33.0); MEAN CORPUSCULAR HGB CONC 33.5 g/dl (32.0-36.5); MEAN CORPUSCULAR VOLUME 87.1 fl (80.0-96.0); MONO # 0.6 10^3/uL (0.0-0.8); MONO % 8.3 % (2.0-8.0); NEUTROPHILS # 3.9 10^3/uL (1.5-8.5); NEUTROPHILS % 58.4 % (36.0-66.0); PLATELET COUNT, AUTOMATED 296 10^3/uL (150-450); RED BLOOD COUNT 3.02 10^6/uL (4.00-5.40); WHITE BLOOD COUNT 6.7 10^3/uL (4.0-10.0)
[2021-12-19 07:14] LABS: INR 1.79; PROTHROMBIN TIME 21.2 SECONDS (12.7-14.5)
[2021-12-19 07:23] LABS: CREATININE FOR GFR 1.02 MG/DL (0.55-1.30); POTASSIUM SERUM 3.7 MEQ/L (3.5-5.1)
[2021-12-19] MEDS: DOCUSATE SODIUM 100MG CAPSULE PO SCH ×2 (09:00→20:52)
[2021-12-19] MEDS: SUCRALFATE 1 GM TAB PO SCH ×4 (09:42→20:02)
[2021-12-19] MEDS: rifAMPin 150MG CAPSULE PO SCH (09:42)
[2021-12-19] MEDS: CALCITRIOL 0.25 MCG CAP (S0169) PO SCH (09:42)
[2021-12-19] MEDS: ETHAMBUTOL 400MG TAB PO SCH (09:42)
[2021-12-19] MEDS: LACTOBACILLUS ACIDOPHILUS CAP (BACID) PO SCH ×4 (09:42→20:02)
[2021-12-19] MEDS: SODIUM BICARBONATE 325 MG TAB PO SCH ×2 (09:43→20:03)
[2021-12-19] MEDS: AZITHROMYCIN 250MG TABLET PO SCH (09:43)
[2021-12-19] MEDS: TORSEMIDE 10 MG TABLET PO SCH (09:43)
[2021-12-19] MEDS: PANTOPRAZOLE 40MG TAB (PROTONIX) PO SCH ×2 (09:43→20:02)
[2021-12-19] MEDS: ASPIRIN 81MG ENTERIC TABLET PO SCH (09:43)
[2021-12-19] MEDS: FERROUS SULFATE 325MG TAB PO SCH (09:43)
[2021-12-19] MEDS: allopurinoL 100 MG TAB PO SCH (09:43)
[2021-12-19] MEDS: BRINZOLAMIDE 1 % OPHTH SUSP (AZOPT) 10ML OU SCH ×2 (09:46→20:03)
[2021-12-19] MEDS: FLUTICASONE PROP 0.05% NASAL SPRAY 16 GM (FLONASE) NARES SCH (09:46)
[2021-12-19] MEDS: REMEDY PHYTOPLEX Z-GUARD PASTE 113GM TUBE (FROM STOREROOM PRODUCT) TOP SCH ×3 (09:46→20:03)
[2021-12-19 14:00] VITALS: BP 105/56
[2021-12-19] MEDS: WARFARIN SOD 5MG TAB PO SCH (17:20)
[2021-12-19 19:43] VITALS: BP 87/53
[2021-12-19 20:01] VITALS: BP 110/50
[2021-12-19] MEDS: LATANOPROST 0.005% OPHTH SOLN 2.5 ML OU SCH (20:03)
[2021-12-19] MEDS: SENNA 8.6 MG TAB (SENOKOT) PO SCH (20:52)
[2021-12-20 05:00] VITALS: BP 125/58
[2021-12-20] MEDS: ADVAIR HFA 230/21MCG INHALER INH SCH ×2 (07:42→18:06)
[2021-12-20] MEDS: ALBUTEROL 90 MCG/ACT 8GM HFA INHALER INH SCH ×3 (07:42→18:05)
[2021-12-20 07:55] LABS: INR 2.15; PROTHROMBIN TIME 24.4 SECONDS (12.7-14.5)
[2021-12-20] MEDS: SUCRALFATE 1 GM TAB PO SCH ×4 (08:11→20:53)
[2021-12-20] MEDS: CALCITRIOL 0.25 MCG CAP (S0169) PO SCH (08:12)
[2021-12-20] MEDS: LACTOBACILLUS ACIDOPHILUS CAP (BACID) PO SCH ×4 (08:12→20:53)
[2021-12-20] MEDS: BRINZOLAMIDE 1 % OPHTH SUSP (AZOPT) 10ML OU SCH ×2 (08:12→20:52)
[2021-12-20] MEDS: ASPIRIN 81MG ENTERIC TABLET PO SCH (08:12)
[2021-12-20] MEDS: PANTOPRAZOLE 40MG TAB (PROTONIX) PO SCH ×2 (08:12→20:53)
[2021-12-20] MEDS: SODIUM BICARBONATE 325 MG TAB PO SCH ×2 (08:12→20:53)
[2021-12-20] MEDS: FERROUS SULFATE 325MG TAB PO SCH (08:12)
[2021-12-20] MEDS: allopurinoL 100 MG TAB PO SCH (08:12)
[2021-12-20] MEDS: REMEDY PHYTOPLEX Z-GUARD PASTE 113GM TUBE (FROM STOREROOM PRODUCT) TOP SCH ×3 (08:13→20:53)
[2021-12-20] MEDS: DOCUSATE SODIUM 100MG CAPSULE PO SCH ×2 (08:13→20:53)
[2021-12-20] MEDS: FLUTICASONE PROP 0.05% NASAL SPRAY 16 GM (FLONASE) NARES SCH (08:13)
[2021-12-20 14:00] VITALS: BP 127/59
[2021-12-20] MEDS: WARFARIN SOD 5MG TAB PO SCH (17:51)
[2021-12-20 20:00] VITALS: BP 130/60
[2021-12-20] MEDS: LATANOPROST 0.005% OPHTH SOLN 2.5 ML OU SCH (20:52)
[2021-12-20] MEDS: SENNA 8.6 MG TAB (SENOKOT) PO SCH (20:53)
[2021-12-20 22:00] VITALS: BP 130/60
[2021-12-21 06:00] VITALS: BP 118/56
[2021-12-21] MEDS: ADVAIR HFA 230/21MCG INHALER INH SCH ×2 (07:13→19:15)
[2021-12-21] MEDS: ALBUTEROL 90 MCG/ACT 8GM HFA INHALER INH SCH ×4 (07:14→19:15)
[2021-12-21] MEDS: SUCRALFATE 1 GM TAB PO SCH ×4 (07:41→20:38)
[2021-12-21] MEDS: PANTOPRAZOLE 40MG TAB (PROTONIX) PO SCH ×2 (07:42→20:38)
[2021-12-21] MEDS: allopurinoL 100 MG TAB PO SCH (07:42)
[2021-12-21] MEDS: SODIUM BICARBONATE 325 MG TAB PO SCH ×2 (07:42→20:38)
[2021-12-21] MEDS: LACTOBACILLUS ACIDOPHILUS CAP (BACID) PO SCH ×4 (07:42→20:38)
[2021-12-21] MEDS: DOCUSATE SODIUM 100MG CAPSULE PO SCH ×2 (07:42→20:37)
[2021-12-21] MEDS: FERROUS SULFATE 325MG TAB PO SCH (07:42)
[2021-12-21] MEDS: CALCITRIOL 0.25 MCG CAP (S0169) PO SCH (07:42)
[2021-12-21] MEDS: TORSEMIDE 10 MG TABLET PO SCH (07:42)
[2021-12-21] MEDS: ASPIRIN 81MG ENTERIC TABLET PO SCH (07:42)
[2021-12-21] MEDS: REMEDY PHYTOPLEX Z-GUARD PASTE 113GM TUBE (FROM STOREROOM PRODUCT) TOP SCH ×3 (07:43→20:39)
[2021-12-21] MEDS: BRINZOLAMIDE 1 % OPHTH SUSP (AZOPT) 10ML OU SCH ×2 (07:43→20:39)
[2021-12-21] MEDS: FLUTICASONE PROP 0.05% NASAL SPRAY 16 GM (FLONASE) NARES SCH (07:43)
[2021-12-21 08:02] LABS: INR 2.35; PROTHROMBIN TIME 26.1 SECONDS (12.7-14.5)
[2021-12-21 14:00] VITALS: BP 120/52
[2021-12-21] MEDS: WARFARIN SOD 5MG TAB PO SCH (17:08)
[2021-12-21 20:00] VITALS: BP 124/58
[2021-12-21] MEDS: SENNA 8.6 MG TAB (SENOKOT) PO SCH (20:38)
[2021-12-21] MEDS: LATANOPROST 0.005% OPHTH SOLN 2.5 ML OU SCH (20:39)
[2021-12-22 06:00] VITALS: BP 134/68
[2021-12-22 07:57] LABS: INR 2.71; PROTHROMBIN TIME 29.1 SECONDS (12.7-14.5)
[2021-12-22] MEDS: ALBUTEROL 90 MCG/ACT 8GM HFA INHALER INH SCH (08:12)
[2021-12-22] MEDS: ADVAIR HFA 230/21MCG INHALER INH SCH (08:12)
[2021-12-22] MEDS: BRINZOLAMIDE 1 % OPHTH SUSP (AZOPT) 10ML OU SCH (08:20)
[2021-12-22] MEDS: FLUTICASONE PROP 0.05% NASAL SPRAY 16 GM (FLONASE) NARES SCH (08:20)
[2021-12-22] MEDS: FERROUS SULFATE 325MG TAB PO SCH (08:21)
[2021-12-22] MEDS: PANTOPRAZOLE 40MG TAB (PROTONIX) PO SCH (08:21)
[2021-12-22] MEDS: rifAMPin 150MG CAPSULE PO SCH (08:21)
[2021-12-22] MEDS: REMEDY PHYTOPLEX Z-GUARD PASTE 113GM TUBE (FROM STOREROOM PRODUCT) TOP SCH (08:21)
[2021-12-22] MEDS: SUCRALFATE 1 GM TAB PO SCH (08:22)
[2021-12-22] MEDS: SODIUM BICARBONATE 325 MG TAB PO SCH (08:22)
[2021-12-22] MEDS: CALCITRIOL 0.25 MCG CAP (S0169) PO SCH (08:22)
[2021-12-22] MEDS: ASPIRIN 81MG ENTERIC TABLET PO SCH (08:22)
[2021-12-22] MEDS: AZITHROMYCIN 250MG TABLET PO SCH (08:22)
[2021-12-22] MEDS: allopurinoL 100 MG TAB PO SCH (08:22)
[2021-12-22] MEDS: DOCUSATE SODIUM 100MG CAPSULE PO SCH (08:22)
[2021-12-22] MEDS: LACTOBACILLUS ACIDOPHILUS CAP (BACID) PO SCH (08:22)
[2021-12-22] MEDS: ETHAMBUTOL 400MG TAB PO SCH (08:23)
[2021-12-22] MEDS ORDERED: WARF4TAB51 PO (09:47)
[2021-12-22] MEDS ORDERED: WARF-18 PO (09:47)
[2021-12-23] MEDS ORDERED: WARF-18 PO (06:59)
[2021-12-23] MEDS ORDERED: RISATAB3 PO (06:59)
[2021-12-23] MEDS ORDERED: D3 S1CAP PO (06:59)
[2021-12-23] MEDS ORDERED: WARF4TAB51 PO (06:59)
== END 2021-12-22 10:05 | disposition home health service (06) | DRG 74 ==
LOC: M PM&R 14:53
PROVIDERS: ADMIT Physical Medicine & Rehabilitation; ATTEND Physical Medicine & Rehabilitation
DX: E11.42 Type 2 diabetes mellitus with diabetic polyneuropathy (principal); I50.32 Chronic diastolic (congestive) heart failure; I82.412 Acute embolism and thrombosis of left femoral vein; R53.1 Weakness; J44.9 Chronic obstructive pulmonary disease, unspecified; I48.91 Unspecified atrial fibrillation; E11.51 Type 2 diabetes mellitus with diabetic peripheral angiopathy without gangrene; E11.22 Type 2 diabetes mellitus with diabetic chronic kidney disease; N18.9 Chronic kidney disease, unspecified; Z74.09 Other reduced mobility; Z74.1 Need for assistance with personal care; H40.9 Unspecified glaucoma; R30.0 Dysuria; D64.9 Anemia, unspecified; R53.81 Other malaise; Z66 Do not resuscitate; Z95.828 Presence of other vascular implants and grafts; Z90.49 Acquired absence of other specified parts of digestive tract; Z98.41 Cataract extraction status, right eye; Z98.42 Cataract extraction status, left eye; Z79.82 Long term (current) use of aspirin; Z95.0 Presence of cardiac pacemaker; Z79.01 Long term (current) use of anticoagulants; Z79.899 Other long term (current) drug therapy; Z88.0 Allergy status to penicillin; Z88.1 Allergy status to other antibiotic agents; Z88.8 Allergy status to other drugs, medicaments and biological substances; Z87.891 Personal history of nicotine dependence

== ENCOUNTER 2021-12-23 05:23 | Inpatient (IN) | payer MEDICARE ==
[~2021-12-23] VITALS: Ht 167.6 cm; Wt 55.7 kg
[~2021-12-23 05:23] MED LIST changes: +WARF-18 PO; +WARF4TAB51 PO
[2021-12-23] MEDS ORDERED: NS 500 ML IV ONE ×2 (06:15→09:05)
[2021-12-23] MEDS ORDERED: PANTOPRAZOLE 40MG VIAL IV ONE (06:15)
[2021-12-23 06:23] LABS: BASO % 0.2 % (0.0-1.0); EOS # 0.1 10^3/uL (0.0-0.5); EOS % 0.5 % (0.0-3.0); HEMATOCRIT 35.7 % (36.0-47.0); HEMOGLOBIN 11.7 g/dl (12.0-15.5); LYMPH # 1.1 10^3/uL (1.5-5.0); LYMPH % 6.8 % (24.0-44.0); MEAN CORPUSCULAR HEMOGLOBIN 29.9 pg (27.0-33.0); MEAN CORPUSCULAR HGB CONC 32.8 g/dl (32.0-36.5); MEAN CORPUSCULAR VOLUME 91.3 fl (80.0-96.0); MONO # 0.7 10^3/uL (0.0-0.8); MONO % 4.2 % (2.0-8.0); NEUTROPHILS # 14.5 10^3/uL (1.5-8.5); NEUTROPHILS % 87.6 % (36.0-66.0); PLATELET COUNT, AUTOMATED 372 10^3/uL (150-450); RED BLOOD COUNT 3.91 10^6/uL (4.00-5.40); WHITE BLOOD COUNT 16.6 10^3/uL (4.0-10.0)
[2021-12-23] MEDS ORDERED: METOCLOPRAMIDE INJ 10MG/2ML VIAL (J2765 PER 1) IV ONE (06:30)
[2021-12-23 06:34] LABS: INR 2.87; PROTHROMBIN TIME 30.4 SECONDS (12.7-14.5)
[2021-12-23 06:35] LABS: PARTIAL THROMBOPLASTIN TIME 42.9 SECONDS (25.9-37.0)
[2021-12-23 06:47] LABS: BILIRUBIN,DIRECT 0.3 MG/DL (0.0-0.2); BILIRUBIN,TOTAL 0.8 MG/DL (0.2-1.0); CALCIUM LEVEL 9.5 MG/DL (8.8-10.2); CREATININE FOR GFR 1.21 MG/DL (0.55-1.30); GLOMERULAR FILTRATION RATE 45.1 (>32); POTASSIUM SERUM 4.8 MEQ/L (3.5-5.1); TOTAL PROTEIN 5.7 GM/DL (6.4-8.2)
[2021-12-23 06:49] LABS: RSV AMPLIFICATION NEGATIVE (NEGATIVE)
[2021-12-23] MEDS ORDERED: PHYTONADIONE INJection 10 MG in NS 50 ML IV ONE (06:50)
[2021-12-23] MEDS ORDERED: RISATAB3 PO (06:59)
[2021-12-23] MEDS ORDERED: WARF4TAB51 PO (06:59)
[2021-12-23] MEDS ORDERED: WARF-18 PO (06:59)
[2021-12-23] MEDS ORDERED: D3 S1CAP PO (06:59)
[2021-12-23] MEDS ORDERED: HOME MED LIST COMPLETE! XX SCH (07:05)
[2021-12-23] MEDS: COMBIVENT RESPIMAT 100-20MCG INHALER 4GM INH SCH ×2 (07:21→07:31)
[2021-12-23] MEDS: PANTOPRAZOLE SODIUM 40 MG in D5W 50 ML IV SCH ×4 (08:34→23:21)
[2021-12-23] MEDS ORDERED: ONDANSETRON 4MG/2ML VIAL IV PRN (09:05)
[2021-12-23] MEDS ORDERED: LEVALBUTEROL 1.25 MG/0.5 ML CONCENTRATE NEB INH PRN (09:05)
[2021-12-23] MEDS ORDERED: ISOVUE-370 76% 100ML VIAL As Ordered ONE (09:11)
[2021-12-23 09:41] LABS: HEMATOCRIT 30.1 % (36.0-47.0)
[2021-12-23 10:15] VITALS: BP 151/67
[2021-12-23] MEDS: ADVAIR HFA 230/21MCG INHALER INH SCH ×2 (10:55→19:44)
[2021-12-23 10:57] VITALS: O2SAT 92
[2021-12-23] MEDS: SUCRALFATE SUSP 1GM/10ML UD PO SCH ×3 (11:39→23:24)
[2021-12-23 12:35] LABS: HEMATOCRIT 29.5 % (36.0-47.0); HEMOGLOBIN 9.8 g/dl (12.0-15.5)
[2021-12-23] MEDS: LR 1,000 ML IV SCH ×2 (12:51→21:35)
[2021-12-23 14:00] VITALS: BP 127/50
[2021-12-23] MEDS: PIPERACILLIN/TAZOBACTAM SOD 3.375 GM in D5W MINI-BAG PLUS 50 ML IV SCH ×2 (14:21→20:38)
[2021-12-23] MEDS: BRINZOLAMIDE 1 % OPHTH SUSP (AZOPT) 10ML OU SCH ×2 (14:57→20:38)
[2021-12-23 18:01] LABS: HEMATOCRIT 26.6 % (36.0-47.0); HEMOGLOBIN 8.9 g/dl (12.0-15.5)
[2021-12-23 18:48] VITALS: BP 131/49
[2021-12-23] MEDS: LATANOPROST 0.005% OPHTH SOLN 2.5 ML OU SCH (20:40)
[2021-12-24 00:52] LABS: HEMATOCRIT 25.3 % (36.0-47.0); HEMOGLOBIN 8.5 g/dl (12.0-15.5)
[2021-12-24] MEDS: LR 1,000 ML IV SCH ×2 (01:17→10:37)
[2021-12-24] MEDS: PIPERACILLIN/TAZOBACTAM SOD 3.375 GM in D5W MINI-BAG PLUS 50 ML IV SCH (02:27)
[2021-12-24] MEDS ORDERED: GLUCAGON INJ 1MG VIAL SC PRN (04:20)
[2021-12-24] MEDS ORDERED: GLUCOSE 4GM CHEW TABLET PO PRN (04:20)
[2021-12-24] MEDS ORDERED: DEXTROSE 50% 50 ML SYRINGE IV PRN (04:20)
[2021-12-24] MEDS: PANTOPRAZOLE SODIUM 40 MG in D5W 50 ML IV SCH ×2 (04:35→10:36)
[2021-12-24] MEDS: SUCRALFATE SUSP 1GM/10ML UD PO SCH ×3 (05:26→17:58)
[2021-12-24 05:27] LABS: BASO % 0.2 % (0.0-1.0); EOS % 0.1 % (0.0-3.0); HEMATOCRIT 25.5 % (36.0-47.0); HEMOGLOBIN 8.5 g/dl (12.0-15.5); LYMPH # 0.8 10^3/uL (1.5-5.0); LYMPH % 4.4 % (24.0-44.0); MEAN CORPUSCULAR HGB CONC 33.3 g/dl (32.0-36.5); MEAN CORPUSCULAR VOLUME 90.1 fl (80.0-96.0); MONO # 0.9 10^3/uL (0.0-0.8); MONO % 5.3 % (2.0-8.0); NEUTROPHILS % 89.2 % (36.0-66.0); RED BLOOD COUNT 2.83 10^6/uL (4.00-5.40); WHITE BLOOD COUNT 17.9 10^3/uL (4.0-10.0)
[2021-12-24 05:33] LABS: PLATELET COUNT, AUTOMATED 242 10^3/uL (150-450)
[2021-12-24 05:44] LABS: CALCIUM LEVEL 8.5 MG/DL (8.8-10.2); CREATININE FOR GFR 1.94 MG/DL (0.55-1.30); GLOMERULAR FILTRATION RATE 26.2 (>32); POTASSIUM SERUM 4.2 MEQ/L (3.5-5.1)
[2021-12-24 06:00] VITALS: BP 124/48
[2021-12-24] MEDS: ADVAIR HFA 230/21MCG INHALER INH SCH ×2 (08:23→19:41)
[2021-12-24] MEDS: BRINZOLAMIDE 1 % OPHTH SUSP (AZOPT) 10ML OU SCH ×2 (10:36→21:35)
[2021-12-24] MEDS: PIPERACILLIN/TAZOBACTAM SOD 2.25 GM in D5W MINI-BAG PLUS 50 ML IV SCH ×2 (10:36→17:58)
[2021-12-24 13:07] LABS: HEMATOCRIT 24.1 % (36.0-47.0)
[2021-12-24 14:00] VITALS: BP 95/49
[2021-12-24 16:23] VITALS: BP 130/50
[2021-12-24 18:53] LABS: HEMATOCRIT 25.1 % (36.0-47.0); HEMOGLOBIN 8.4 g/dl (12.0-15.5)
[2021-12-24 19:28] VITALS: BP 141/53
[2021-12-24] MEDS: LATANOPROST 0.005% OPHTH SOLN 2.5 ML OU SCH (21:35)
[2021-12-24] MEDS: PANTOPRAZOLE 40MG VIAL IV SCH (21:35)
[2021-12-25] VITALS (14 sets, daily range): BP systolic 92–152; BP diastolic 48–61
[2021-12-25] MEDS: SUCRALFATE SUSP 1GM/10ML UD PO SCH ×5 (00:32→23:52)
[2021-12-25] MEDS: PIPERACILLIN/TAZOBACTAM SOD 2.25 GM in D5W MINI-BAG PLUS 50 ML IV SCH ×3 (03:07→17:02)
[2021-12-25 06:16] LABS: BASO % 0.2 % (0.0-1.0); EOS # 0.1 10^3/uL (0.0-0.5); EOS % 0.9 % (0.0-3.0); HEMOGLOBIN 7.7 g/dl (12.0-15.5); LYMPH # 0.8 10^3/uL (1.5-5.0); LYMPH % 6.1 % (24.0-44.0); MEAN CORPUSCULAR HEMOGLOBIN 29.7 pg (27.0-33.0); MEAN CORPUSCULAR HGB CONC 33.5 g/dl (32.0-36.5); MEAN CORPUSCULAR VOLUME 88.8 fl (80.0-96.0); MONO # 0.9 10^3/uL (0.0-0.8); MONO % 7.6 % (2.0-8.0); NEUTROPHILS # 10.3 10^3/uL (1.5-8.5); NEUTROPHILS % 84.5 % (36.0-66.0); PLATELET COUNT, AUTOMATED 267 10^3/uL (150-450); RED BLOOD COUNT 2.59 10^6/uL (4.00-5.40); WHITE BLOOD COUNT 12.2 10^3/uL (4.0-10.0)
[2021-12-25 06:47] LABS: CALCIUM LEVEL 8.2 MG/DL (8.8-10.2); CREATININE FOR GFR 1.85 MG/DL (0.55-1.30); GLOMERULAR FILTRATION RATE 27.6 (>32); POTASSIUM SERUM 3.8 MEQ/L (3.5-5.1)
[2021-12-25] MEDS: ADVAIR HFA 230/21MCG INHALER INH SCH ×2 (07:31→19:18)
[2021-12-25] MEDS: SIMETHICONE 80MG CHEW TAB PO SCH ×3 (09:48→20:59)
[2021-12-25] MEDS: PANTOPRAZOLE 40MG VIAL IV SCH ×2 (09:48→20:59)
[2021-12-25] MEDS: BRINZOLAMIDE 1 % OPHTH SUSP (AZOPT) 10ML OU SCH ×2 (09:49→20:59)
[2021-12-25] MEDS: LATANOPROST 0.005% OPHTH SOLN 2.5 ML OU SCH (20:59)
[2021-12-26] MEDS: PIPERACILLIN/TAZOBACTAM SOD 2.25 GM in D5W MINI-BAG PLUS 50 ML IV SCH ×4 (02:41→22:27)
[2021-12-26] MEDS: SUCRALFATE SUSP 1GM/10ML UD PO SCH ×4 (04:50→17:43)
[2021-12-26 04:55] VITALS: BP 128/64
[2021-12-26] MEDS: SIMETHICONE 80MG CHEW TAB PO SCH ×3 (05:51→22:27)
[2021-12-26] MEDS: PANTOPRAZOLE 40MG VIAL IV SCH ×2 (05:52→22:26)
[2021-12-26 06:09] LABS: BASO % 0.3 % (0.0-1.0); EOS # 0.1 10^3/uL (0.0-0.5); EOS % 1.4 % (0.0-3.0); HEMATOCRIT 31.3 % (36.0-47.0); LYMPH # 1.3 10^3/uL (1.5-5.0); LYMPH % 13.8 % (24.0-44.0); MEAN CORPUSCULAR HEMOGLOBIN 29.4 pg (27.0-33.0); MEAN CORPUSCULAR HGB CONC 33.5 g/dl (32.0-36.5); MEAN CORPUSCULAR VOLUME 87.7 fl (80.0-96.0); MONO # 0.9 10^3/uL (0.0-0.8); MONO % 9.8 % (2.0-8.0); NEUTROPHILS # 6.9 10^3/uL (1.5-8.5); NEUTROPHILS % 74.2 % (36.0-66.0); PLATELET COUNT, AUTOMATED 263 10^3/uL (150-450); RED BLOOD COUNT 3.57 10^6/uL (4.00-5.40); WHITE BLOOD COUNT 9.3 10^3/uL (4.0-10.0)
[2021-12-26 06:12] LABS: HEMOGLOBIN 10.5 g/dl (12.0-15.5)
[2021-12-26 06:25] LABS: INR 1.21; PROTHROMBIN TIME 15.7 SECONDS (12.7-14.5)
[2021-12-26 06:26] LABS: CALCIUM LEVEL 8.6 MG/DL (8.8-10.2); CREATININE FOR GFR 1.5 MG/DL (0.55-1.30); GLOMERULAR FILTRATION RATE 35.2 (>32); POTASSIUM SERUM 3.5 MEQ/L (3.5-5.1)
[2021-12-26] MEDS ORDERED: FUROSEMIDE 40MG/4ML VIAL (J1940) IV ONE (07:30)
[2021-12-26] MEDS: ADVAIR HFA 230/21MCG INHALER INH SCH ×2 (07:41→20:23)
[2021-12-26] MEDS: BRINZOLAMIDE 1 % OPHTH SUSP (AZOPT) 10ML OU SCH ×2 (08:40→22:27)
[2021-12-26] MEDS: GASTROGRAFIN SOLUTION 30ML PO SCH ×2 (09:15→09:25)
[2021-12-26 14:00] VITALS: BP 126/63
[2021-12-26 14:50] VITALS: O2SAT 91
[2021-12-26] MEDS ORDERED: FUROSEMIDE 40MG/4ML VIAL (J1940) IV SCH (17:00)
[2021-12-26 22:00] VITALS: BP_SYST 116; BP_SYST 137; BP_DIAS 61; BP_DIAS 63
[2021-12-26] MEDS: LATANOPROST 0.005% OPHTH SOLN 2.5 ML OU SCH (22:28)
[2021-12-27] MEDS: SUCRALFATE SUSP 1GM/10ML UD PO SCH ×5 (00:08→22:56)
[2021-12-27] MEDS: PIPERACILLIN/TAZOBACTAM SOD 2.25 GM in D5W MINI-BAG PLUS 50 ML IV SCH ×4 (02:24→22:56)
[2021-12-27 05:07] LABS: BASO # 0.1 10^3/uL (0.0-0.2); BASO % 0.5 % (0.0-1.0); EOS # 0.2 10^3/uL (0.0-0.5); EOS % 1.5 % (0.0-3.0); HEMATOCRIT 31.7 % (36.0-47.0); HEMOGLOBIN 10.7 g/dl (12.0-15.5); LYMPH # 0.9 10^3/uL (1.5-5.0); LYMPH % 8.4 % (24.0-44.0); MEAN CORPUSCULAR HEMOGLOBIN 29.8 pg (27.0-33.0); MEAN CORPUSCULAR HGB CONC 33.8 g/dl (32.0-36.5); MEAN CORPUSCULAR VOLUME 88.3 fl (80.0-96.0); MONO # 0.9 10^3/uL (0.0-0.8); MONO % 8.5 % (2.0-8.0); NEUTROPHILS # 8.4 10^3/uL (1.5-8.5); NEUTROPHILS % 80.1 % (36.0-66.0); PLATELET COUNT, AUTOMATED 285 10^3/uL (150-450); RED BLOOD COUNT 3.59 10^6/uL (4.00-5.40); WHITE BLOOD COUNT 10.5 10^3/uL (4.0-10.0)
[2021-12-27 05:27] LABS: CALCIUM LEVEL 8.4 MG/DL (8.8-10.2); CREATININE FOR GFR 1.61 MG/DL (0.55-1.30); GLOMERULAR FILTRATION RATE 32.5 (>32); POTASSIUM SERUM 3.3 MEQ/L (3.5-5.1)
[2021-12-27 06:00] VITALS: BP 108/61
[2021-12-27] MEDS ORDERED: D5W/0.9% SODIUM CHLORIDE 1,000 ML IV SCH (07:05)
[2021-12-27] MEDS: ADVAIR HFA 230/21MCG INHALER INH SCH ×2 (08:09→20:01)
[2021-12-27 08:10] VITALS: BP 107/62
[2021-12-27] MEDS: BRINZOLAMIDE 1 % OPHTH SUSP (AZOPT) 10ML OU SCH ×2 (08:56→22:57)
[2021-12-27] MEDS: PANTOPRAZOLE 40MG VIAL IV SCH ×2 (08:56→22:57)
[2021-12-27] MEDS: SIMETHICONE 80MG CHEW TAB PO SCH ×3 (09:56→22:56)
[2021-12-27] MEDS: KCL 40MEQ IN D5/NS 1000ML 1,000 ML IV SCH (12:49)
[2021-12-27 13:30] VITALS: BP 140/54
[2021-12-27 18:40] VITALS: O2SAT 90
[2021-12-27 22:00] VITALS: BP 139/58
[2021-12-27] MEDS: LATANOPROST 0.005% OPHTH SOLN 2.5 ML OU SCH (22:57)
[2021-12-28] MEDS: PIPERACILLIN/TAZOBACTAM SOD 2.25 GM in D5W MINI-BAG PLUS 50 ML IV SCH ×4 (03:10→22:02)
[2021-12-28] MEDS: KCL 40MEQ IN D5/NS 1000ML 1,000 ML IV SCH ×2 (04:40→22:02)
[2021-12-28 05:17] LABS: BASO % 0.4 % (0.0-1.0); EOS # 0.1 10^3/uL (0.0-0.5); HEMATOCRIT 29.3 % (36.0-47.0); HEMOGLOBIN 9.9 g/dl (12.0-15.5); LYMPH # 1.2 10^3/uL (1.5-5.0); LYMPH % 12.6 % (24.0-44.0); MEAN CORPUSCULAR HEMOGLOBIN 30.2 pg (27.0-33.0); MEAN CORPUSCULAR HGB CONC 33.8 g/dl (32.0-36.5); MEAN CORPUSCULAR VOLUME 89.3 fl (80.0-96.0); NEUTROPHILS # 7.4 10^3/uL (1.5-8.5); NEUTROPHILS % 75.3 % (36.0-66.0); PLATELET COUNT, AUTOMATED 229 10^3/uL (150-450); RED BLOOD COUNT 3.28 10^6/uL (4.00-5.40); WHITE BLOOD COUNT 9.9 10^3/uL (4.0-10.0)
[2021-12-28] MEDS: SUCRALFATE SUSP 1GM/10ML UD PO SCH ×3 (05:24→18:25)
[2021-12-28 05:41] LABS: CREATININE FOR GFR 1.61 MG/DL (0.55-1.30); GLOMERULAR FILTRATION RATE 32.5 (>32); POTASSIUM SERUM 3.5 MEQ/L (3.5-5.1)
[2021-12-28 06:00] VITALS: BP 139/60
[2021-12-28] MEDS: ADVAIR HFA 230/21MCG INHALER INH SCH ×2 (07:25→19:12)
[2021-12-28 07:35] VITALS: O2SAT 94
[2021-12-28] MEDS: PANTOPRAZOLE 40MG VIAL IV SCH ×2 (09:48→22:01)
[2021-12-28] MEDS: BRINZOLAMIDE 1 % OPHTH SUSP (AZOPT) 10ML OU SCH ×2 (09:49→22:02)
[2021-12-28 14:00] VITALS: BP 140/60
[2021-12-28 19:21] VITALS: BP 139/60
[2021-12-28 19:49] VITALS: O2SAT 95
[2021-12-28] MEDS: LATANOPROST 0.005% OPHTH SOLN 2.5 ML OU SCH (22:02)
[2021-12-29] VITALS (7 sets, daily range): BP systolic 106–132; BP diastolic 52–65; O2SAT 93
[2021-12-29] MEDS: SUCRALFATE SUSP 1GM/10ML UD PO SCH ×5 (00:57→23:15)
[2021-12-29] MEDS: PIPERACILLIN/TAZOBACTAM SOD 2.25 GM in D5W MINI-BAG PLUS 50 ML IV SCH ×4 (03:00→22:00)
[2021-12-29] MEDS: KCL 40MEQ IN D5/NS 1000ML 1,000 ML IV SCH ×2 (04:14→14:00)
[2021-12-29 07:01] LABS: BASO % 0.4 % (0.0-1.0); EOS # 0.2 10^3/uL (0.0-0.5); EOS % 2.4 % (0.0-3.0); HEMOGLOBIN 10.1 g/dl (12.0-15.5); LYMPH # 1.3 10^3/uL (1.5-5.0); LYMPH % 17.2 % (24.0-44.0); MEAN CORPUSCULAR HEMOGLOBIN 30.5 pg (27.0-33.0); MEAN CORPUSCULAR HGB CONC 33.7 g/dl (32.0-36.5); MEAN CORPUSCULAR VOLUME 90.6 fl (80.0-96.0); MONO # 0.8 10^3/uL (0.0-0.8); NEUTROPHILS # 5.3 10^3/uL (1.5-8.5); NEUTROPHILS % 69.3 % (36.0-66.0); PLATELET COUNT, AUTOMATED 244 10^3/uL (150-450); RED BLOOD COUNT 3.31 10^6/uL (4.00-5.40); WHITE BLOOD COUNT 7.6 10^3/uL (4.0-10.0)
[2021-12-29 07:28] LABS: CALCIUM LEVEL 8.1 MG/DL (8.8-10.2); CREATININE FOR GFR 1.45 MG/DL (0.55-1.30); GLOMERULAR FILTRATION RATE 36.6 (>32); POTASSIUM SERUM 3.8 MEQ/L (3.5-5.1)
[2021-12-29] MEDS: ADVAIR HFA 230/21MCG INHALER INH SCH ×2 (08:00→19:58)
[2021-12-29] MEDS: PANTOPRAZOLE 40MG VIAL IV SCH ×2 (09:22→20:36)
[2021-12-29] MEDS: BRINZOLAMIDE 1 % OPHTH SUSP (AZOPT) 10ML OU SCH ×2 (09:22→20:37)
[2021-12-29] MEDS ORDERED: LIDOCAINE 1% SDV 30ML VIAL As Ordered ONE (10:41)
[2021-12-29] MEDS ORDERED: BUPIVACAINE HCL 0.25% 30ML VIAL As Ordered ONE (10:41)
[2021-12-29] MEDS ORDERED: fentaNYL 250 MCG/5 ML INJECTION As Ordered ONE (11:47)
[2021-12-29] MEDS ORDERED: SUCCINYLCHOLINE 100 MG/5 ML SYRINGE (J0330) As Ordered ONE (11:47)
[2021-12-29] MEDS ORDERED: KETOROLAC 60MG 2ML VIAL As Ordered ONE (11:47)
[2021-12-29] MEDS ORDERED: ROCURONIUM BROMIDE 50 MG/5 ML VIAL As Ordered ONE ×3 (11:47→12:19)
[2021-12-29] MEDS ORDERED: SUGAMMADEX SODIUM 500 MG/5 ML VIAL (BRIDION) As Ordered ONE (11:47)
[2021-12-29] MEDS ORDERED: LIDOCAINE 2% 100MG/5ML SDV (FOR ANES.) As Ordered ONE (11:47)
[2021-12-29] MEDS ORDERED: propofoL 200 MG/20 ML VIAL As Ordered ONE (11:47)
[2021-12-29] MEDS ORDERED: ePHEDrine SULFATE 25 MG/5 ML(5MG/ML) SYRINGE As Ordered ONE (11:53)
[2021-12-29] MEDS ORDERED: ONDANSETRON 4MG/2ML VIAL As Ordered ONE (12:02)
[2021-12-29] MEDS ORDERED: HYDROmorphone HCL 2MG/ML 1ML VIAL As Ordered ONE (13:26)
[2021-12-29] MEDS ORDERED: LABETALOL 100MG/20ML VIAL As Ordered ONE (13:27)
[2021-12-29] MEDS ORDERED: BUPIVACAINE HCL 0.5% 10ML VIAL As Ordered ONE (15:50)
[2021-12-29] MEDS ORDERED: BUPIVACAINE LIPOSOME/PF 1.3% 20ML VIAL (13.3MG/ML)(EXPAREL) As Ordered ONE (15:50)
[2021-12-29] MEDS ORDERED: ZOSYN 3.375GM VIAL As Ordered ONE (16:09)
[2021-12-29] MEDS ORDERED: KETOROLAC 30 MG/ML 1ML VIAL IV PRN (16:09)
[2021-12-29] MEDS ORDERED: MORPHINE 2 MG/ML 1ML VIAL IV PRN (16:40)
[2021-12-29] MEDS ORDERED: LR 1,000 ML IV SCH (16:45)
[2021-12-29] MEDS ORDERED: MEPERIDINE INJ 25 MG/ML VIAL (J2175) IV PRN (16:45)
[2021-12-29] MEDS ORDERED: fentaNYL 100 MCG/2 ML INJECTION IV PRN (16:45)
[2021-12-29] MEDS ORDERED: ONDANSETRON 4MG/2ML VIAL IV PRN (16:45)
[2021-12-29] MEDS ORDERED: HYDROMORPHONE HCL 0.5 MG/ 0.5 ML SYRINGE (J1170 PER 1) IV PRN (16:45)
[2021-12-29] MEDS: ALVIMOPAN 12 MG CAPSULE (ENTEREG) PO SCH (20:36)
[2021-12-29] MEDS: LATANOPROST 0.005% OPHTH SOLN 2.5 ML OU SCH (20:37)
[2021-12-30] VITALS (7 sets, daily range): BP systolic 117–150; BP diastolic 50–60; O2SAT 94–97
[2021-12-30] MEDS: PIPERACILLIN/TAZOBACTAM SOD 2.25 GM in D5W MINI-BAG PLUS 50 ML IV SCH ×4 (02:55→21:01)
[2021-12-30] MEDS: SUCRALFATE SUSP 1GM/10ML UD PO SCH ×3 (04:59→17:14)
[2021-12-30] MEDS: KCL 40MEQ IN D5/NS 1000ML 1,000 ML IV SCH (05:11)
[2021-12-30 06:53] LABS: HEMATOCRIT 31.3 % (36.0-47.0); HEMOGLOBIN 10.4 g/dl (12.0-15.5); RED BLOOD COUNT 3.37 10^6/uL (4.00-5.40)
[2021-12-30 06:54] LABS: BASO % 0.4 % (0.0-1.0); EOS # 0.2 10^3/uL (0.0-0.5); EOS % 2.3 % (0.0-3.0); LYMPH % 14.5 % (24.0-44.0); MEAN CORPUSCULAR HEMOGLOBIN 30.9 pg (27.0-33.0); MEAN CORPUSCULAR HGB CONC 33.2 g/dl (32.0-36.5); MEAN CORPUSCULAR VOLUME 92.9 fl (80.0-96.0); MONO # 0.5 10^3/uL (0.0-0.8); NEUTROPHILS # 5.3 10^3/uL (1.5-8.5); NEUTROPHILS % 75.4 % (36.0-66.0); PLATELET COUNT, AUTOMATED 262 10^3/uL (150-450)
[2021-12-30 07:21] LABS: CALCIUM LEVEL 7.9 MG/DL (8.8-10.2); CREATININE FOR GFR 1.6 MG/DL (0.55-1.30); GLOMERULAR FILTRATION RATE 32.7 (>32); POTASSIUM SERUM 4.7 MEQ/L (3.5-5.1)
[2021-12-30] MEDS: ADVAIR HFA 230/21MCG INHALER INH SCH ×2 (08:38→20:17)
[2021-12-30] MEDS: PANTOPRAZOLE 40MG VIAL IV SCH ×2 (09:33→21:01)
[2021-12-30] MEDS: ALVIMOPAN 12 MG CAPSULE (ENTEREG) PO SCH ×2 (09:33→21:01)
[2021-12-30] MEDS: BRINZOLAMIDE 1 % OPHTH SUSP (AZOPT) 10ML OU SCH ×2 (09:34→21:01)
[2021-12-30] MEDS: ENOXAPARIN 30MG/0.3ML SYRINGE (J1650 PER 10MG) SC SCH (09:34)
[2021-12-30] MEDS: LATANOPROST 0.005% OPHTH SOLN 2.5 ML OU SCH (21:01)
[2021-12-31] MEDS: SUCRALFATE SUSP 1GM/10ML UD PO SCH ×4 (00:11→17:10)
[2021-12-31] MEDS: PIPERACILLIN/TAZOBACTAM SOD 2.25 GM in D5W MINI-BAG PLUS 50 ML IV SCH (03:11)
[2021-12-31 05:10] VITALS: BP 125/48
[2021-12-31 07:37] LABS: BASO # 0.1 10^3/uL (0.0-0.2); BASO % 1.2 % (0.0-1.0); EOS # 0.2 10^3/uL (0.0-0.5); EOS % 3.3 % (0.0-3.0); HEMATOCRIT 31.6 % (36.0-47.0); HEMOGLOBIN 10.1 g/dl (12.0-15.5); LYMPH # 1.4 10^3/uL (1.5-5.0); LYMPH % 22.6 % (24.0-44.0); MEAN CORPUSCULAR HEMOGLOBIN 29.5 pg (27.0-33.0); MEAN CORPUSCULAR VOLUME 92.4 fl (80.0-96.0); MONO # 0.4 10^3/uL (0.0-0.8); MONO % 7.1 % (2.0-8.0); NEUTROPHILS # 3.9 10^3/uL (1.5-8.5); NEUTROPHILS % 65.1 % (36.0-66.0); PLATELET COUNT, AUTOMATED 284 10^3/uL (150-450); RED BLOOD COUNT 3.42 10^6/uL (4.00-5.40)
[2021-12-31] MEDS: ADVAIR HFA 230/21MCG INHALER INH SCH ×2 (07:39→20:18)
[2021-12-31 08:21] LABS: CALCIUM LEVEL 8.3 MG/DL (8.8-10.2); CREATININE FOR GFR 1.3 MG/DL (0.55-1.30); GLOMERULAR FILTRATION RATE 41.5 (>32); POTASSIUM SERUM 4.2 MEQ/L (3.5-5.1)
[2021-12-31] MEDS: BRINZOLAMIDE 1 % OPHTH SUSP (AZOPT) 10ML OU SCH ×2 (09:42→20:37)
[2021-12-31] MEDS: ENOXAPARIN 30MG/0.3ML SYRINGE (J1650 PER 10MG) SC SCH (09:42)
[2021-12-31] MEDS: PANTOPRAZOLE 40MG VIAL IV SCH ×2 (09:42→20:36)
[2021-12-31] MEDS: ALVIMOPAN 12 MG CAPSULE (ENTEREG) PO SCH ×2 (09:42→20:36)
[2021-12-31 14:00] VITALS: BP 144/71
[2021-12-31] MEDS: LATANOPROST 0.005% OPHTH SOLN 2.5 ML OU SCH (20:37)
[2021-12-31 22:00] VITALS: BP 140/71
[2022-01-01] MEDS: SUCRALFATE SUSP 1GM/10ML UD PO SCH ×2 (00:14→05:22)
[2022-01-01 06:00] VITALS: BP 136/72
[2022-01-01] MEDS: ADVAIR HFA 230/21MCG INHALER INH SCH ×2 (07:14→20:07)
[2022-01-01] MEDS: PANTOPRAZOLE 40MG VIAL IV SCH ×2 (09:18→21:15)
[2022-01-01] MEDS: BRINZOLAMIDE 1 % OPHTH SUSP (AZOPT) 10ML OU SCH ×2 (09:18→21:15)
[2022-01-01] MEDS: ENOXAPARIN 30MG/0.3ML SYRINGE (J1650 PER 10MG) SC SCH (09:19)
[2022-01-01 14:00] VITALS: BP 133/72
[2022-01-01] MEDS: LATANOPROST 0.005% OPHTH SOLN 2.5 ML OU SCH (21:15)
[2022-01-01 22:00] VITALS: BP 126/71
[2022-01-02 06:46] LABS: BASO # 0.1 10^3/uL (0.0-0.2); BASO % 0.7 % (0.0-1.0); EOS # 0.2 10^3/uL (0.0-0.5); EOS % 3.2 % (0.0-3.0); HEMATOCRIT 30.5 % (36.0-47.0); HEMOGLOBIN 10.2 g/dl (12.0-15.5); LYMPH # 1.8 10^3/uL (1.5-5.0); MEAN CORPUSCULAR HEMOGLOBIN 29.9 pg (27.0-33.0); MEAN CORPUSCULAR HGB CONC 33.4 g/dl (32.0-36.5); MEAN CORPUSCULAR VOLUME 89.4 fl (80.0-96.0); MONO # 0.5 10^3/uL (0.0-0.8); MONO % 7.8 % (2.0-8.0); NEUTROPHILS # 4.1 10^3/uL (1.5-8.5); NEUTROPHILS % 60.9 % (36.0-66.0); PLATELET COUNT, AUTOMATED 316 10^3/uL (150-450); RED BLOOD COUNT 3.41 10^6/uL (4.00-5.40); WHITE BLOOD COUNT 6.8 10^3/uL (4.0-10.0)
[2022-01-02 06:55] VITALS: BP 126/72
[2022-01-02 07:04] LABS: BLOOD UREA NITROGEN 9 MG/DL (7-18); CALCIUM LEVEL 8.9 MG/DL (8.8-10.2); CARBON DIOXIDE LEVEL 14 MEQ/L (21-32); CHLORIDE LEVEL 119 MEQ/L (98-107); CREATININE FOR GFR 0.86 MG/DL (0.55-1.30); GLOMERULAR FILTRATION RATE > 60.0 (>32); GLUCOSE, FASTING 89 MG/DL (70-100); POTASSIUM SERUM 3.6 MEQ/L (3.5-5.1); SODIUM LEVEL 143 MEQ/L (136-145)
[2022-01-02] MEDS: ADVAIR HFA 230/21MCG INHALER INH SCH ×2 (07:40→19:52)
[2022-01-02] MEDS: PANTOPRAZOLE 40MG VIAL IV SCH (09:24)
[2022-01-02] MEDS: BRINZOLAMIDE 1 % OPHTH SUSP (AZOPT) 10ML OU SCH ×2 (09:25→21:19)
[2022-01-02] MEDS: ENOXAPARIN 30MG/0.3ML SYRINGE (J1650 PER 10MG) SC SCH (09:25)
[2022-01-02] MEDS: ASPIRIN 81 MG CHEW TABLET PO SCH (11:18)
[2022-01-02] MEDS: CALCITRIOL 0.25 MCG CAP (S0169) PO SCH (11:19)
[2022-01-02] MEDS: ETHAMBUTOL 400MG TAB PO SCH (11:19)
[2022-01-02] MEDS: allopurinoL 100 MG TAB PO SCH (11:19)
[2022-01-02] MEDS: AZITHROMYCIN 250MG TABLET PO SCH (11:20)
[2022-01-02 14:00] VITALS: BP 119/67
[2022-01-02] MEDS: FERROUS SULFATE 325MG TAB PO SCH (16:43)
[2022-01-02] MEDS: PANTOPRAZOLE 40MG TAB (PROTONIX) PO SCH (21:18)
[2022-01-02] MEDS: LATANOPROST 0.005% OPHTH SOLN 2.5 ML OU SCH (21:19)
[2022-01-02 22:00] VITALS: BP 115/66
[2022-01-03 05:24] LABS: BASO % 0.6 % (0.0-1.0); EOS # 0.2 10^3/uL (0.0-0.5); HEMATOCRIT 33.1 % (36.0-47.0); HEMOGLOBIN 10.9 g/dl (12.0-15.5); LYMPH # 1.5 10^3/uL (1.5-5.0); LYMPH % 22.1 % (24.0-44.0); MEAN CORPUSCULAR HEMOGLOBIN 29.4 pg (27.0-33.0); MEAN CORPUSCULAR HGB CONC 32.9 g/dl (32.0-36.5); MEAN CORPUSCULAR VOLUME 89.2 fl (80.0-96.0); MONO # 0.6 10^3/uL (0.0-0.8); MONO % 8.1 % (2.0-8.0); NEUTROPHILS # 4.4 10^3/uL (1.5-8.5); NEUTROPHILS % 65.6 % (36.0-66.0); PLATELET COUNT, AUTOMATED 342 10^3/uL (150-450); RED BLOOD COUNT 3.71 10^6/uL (4.00-5.40); WHITE BLOOD COUNT 6.8 10^3/uL (4.0-10.0)
[2022-01-03 05:47] LABS: BLOOD UREA NITROGEN 11 MG/DL (7-18); CALCIUM LEVEL 8.9 MG/DL (8.8-10.2); CARBON DIOXIDE LEVEL 14 MEQ/L (21-32); CHLORIDE LEVEL 121 MEQ/L (98-107); CREATININE FOR GFR 0.92 MG/DL (0.55-1.30); GLOMERULAR FILTRATION RATE > 60.0 (>32); GLUCOSE, FASTING 95 MG/DL (70-100); POTASSIUM SERUM 3.4 MEQ/L (3.5-5.1); SODIUM LEVEL 144 MEQ/L (136-145)
[2022-01-03 06:00] VITALS: BP 113/66
[2022-01-03] MEDS: ADVAIR HFA 230/21MCG INHALER INH SCH ×2 (07:44→19:24)
[2022-01-03 08:00] LABS: ABG BASE EXCESS -9.6 (-2.0-2.0); ABG HCO3 13.8 MEQ/L (22.0-26.0); ABG O2 SATURATION 97.2 % (95.0-99.0); ABG PARTIAL PRESSURE CO2 23.6 mmHg (35.0-45.0); ABG PARTIAL PRESSURE O2 90.8 mmHg (75.0-100.0); ABG STANDARD HCO3 16.8 MEQ/L (22.0-26.0); ABG TOTAL CO2 14.5 MEQ/L (23.0-31.0); ABG pH (ARTERIAL) 7.385 UNITS (7.350-7.450)
[2022-01-03] MEDS: SODIUM BICARBONATE 325 MG TAB PO SCH ×2 (09:42→19:16)
[2022-01-03] MEDS: PANTOPRAZOLE 40MG TAB (PROTONIX) PO SCH ×2 (09:42→19:17)
[2022-01-03] MEDS: ASPIRIN 81 MG CHEW TABLET PO SCH (09:42)
[2022-01-03] MEDS: allopurinoL 100 MG TAB PO SCH (09:42)
[2022-01-03] MEDS: CALCITRIOL 0.25 MCG CAP (S0169) PO SCH (09:42)
[2022-01-03] MEDS: BRINZOLAMIDE 1 % OPHTH SUSP (AZOPT) 10ML OU SCH ×2 (09:43→19:16)
[2022-01-03] MEDS: ENOXAPARIN 30MG/0.3ML SYRINGE (J1650 PER 10MG) SC SCH (09:43)
[2022-01-03] MEDS: FERROUS SULFATE 325MG TAB PO SCH (17:46)
[2022-01-03] MEDS ORDERED: RIVAROXABAN 20 MG TAB (XARELTO) PO SCH (18:00)
[2022-01-03] MEDS: LATANOPROST 0.005% OPHTH SOLN 2.5 ML OU SCH (19:17)
[2022-01-04 06:00] VITALS: BP 127/72
[2022-01-04 07:39] LABS: BASO % 0.3 % (0.0-1.0); EOS # 0.2 10^3/uL (0.0-0.5); EOS % 1.7 % (0.0-3.0); HEMATOCRIT 33.2 % (36.0-47.0); LYMPH # 1.6 10^3/uL (1.5-5.0); LYMPH % 17.7 % (24.0-44.0); MEAN CORPUSCULAR HEMOGLOBIN 29.8 pg (27.0-33.0); MEAN CORPUSCULAR HGB CONC 33.1 g/dl (32.0-36.5); MONO # 0.6 10^3/uL (0.0-0.8); MONO % 7.3 % (2.0-8.0); NEUTROPHILS # 6.3 10^3/uL (1.5-8.5); NEUTROPHILS % 72.4 % (36.0-66.0); PLATELET COUNT, AUTOMATED 335 10^3/uL (150-450); RED BLOOD COUNT 3.69 10^6/uL (4.00-5.40); WHITE BLOOD COUNT 8.7 10^3/uL (4.0-10.0)
[2022-01-04 07:57] LABS: CREATININE FOR GFR 1.02 MG/DL (0.55-1.30); POTASSIUM SERUM 3.8 MEQ/L (3.5-5.1)
[2022-01-04] MEDS: ADVAIR HFA 230/21MCG INHALER INH SCH ×2 (08:15→19:55)
[2022-01-04] MEDS: PANTOPRAZOLE 40MG TAB (PROTONIX) PO SCH ×2 (09:06→21:33)
[2022-01-04] MEDS: SODIUM BICARBONATE 325 MG TAB PO SCH ×2 (09:06→21:33)
[2022-01-04] MEDS: ASPIRIN 81 MG CHEW TABLET PO SCH (09:06)
[2022-01-04] MEDS: CALCITRIOL 0.25 MCG CAP (S0169) PO SCH (09:06)
[2022-01-04] MEDS: BRINZOLAMIDE 1 % OPHTH SUSP (AZOPT) 10ML OU SCH ×2 (09:07→21:34)
[2022-01-04] MEDS: allopurinoL 100 MG TAB PO SCH (09:07)
[2022-01-04] MEDS: FERROUS SULFATE 325MG TAB PO SCH (17:37)
[2022-01-04] MEDS ORDERED: RIVAROXABAN 10 MG TAB (XARELTO) PO SCH (18:00)
[2022-01-04] MEDS: LATANOPROST 0.005% OPHTH SOLN 2.5 ML OU SCH (21:34)
[2022-01-05 06:01] VITALS: BP 107/66
[2022-01-05 06:32] LABS: BASO % 0.5 % (0.0-1.0); EOS # 0.2 10^3/uL (0.0-0.5); EOS % 2.4 % (0.0-3.0); HEMATOCRIT 32.1 % (36.0-47.0); HEMOGLOBIN 10.8 g/dl (12.0-15.5); LYMPH # 1.8 10^3/uL (1.5-5.0); LYMPH % 22.3 % (24.0-44.0); MEAN CORPUSCULAR HEMOGLOBIN 29.8 pg (27.0-33.0); MEAN CORPUSCULAR HGB CONC 33.6 g/dl (32.0-36.5); MEAN CORPUSCULAR VOLUME 88.7 fl (80.0-96.0); MONO # 0.6 10^3/uL (0.0-0.8); MONO % 7.9 % (2.0-8.0); NEUTROPHILS # 5.2 10^3/uL (1.5-8.5); NEUTROPHILS % 66.3 % (36.0-66.0); PLATELET COUNT, AUTOMATED 331 10^3/uL (150-450); RED BLOOD COUNT 3.62 10^6/uL (4.00-5.40); WHITE BLOOD COUNT 7.9 10^3/uL (4.0-10.0)
[2022-01-05 06:50] LABS: CALCIUM LEVEL 8.7 MG/DL (8.8-10.2); CREATININE FOR GFR 1.1 MG/DL (0.55-1.30); GLOMERULAR FILTRATION RATE 50.4 (>32); POTASSIUM SERUM 3.7 MEQ/L (3.5-5.1)
[2022-01-05] MEDS: ADVAIR HFA 230/21MCG INHALER INH SCH (07:41)
[2022-01-05] MEDS ORDERED: XARE10TA PO (08:00)
[2022-01-05] MEDS: BRINZOLAMIDE 1 % OPHTH SUSP (AZOPT) 10ML OU SCH (08:44)
[2022-01-05] MEDS: CALCITRIOL 0.25 MCG CAP (S0169) PO SCH (08:44)
[2022-01-05] MEDS: SODIUM BICARBONATE 325 MG TAB PO SCH (08:44)
[2022-01-05] MEDS: ASPIRIN 81 MG CHEW TABLET PO SCH (08:44)
[2022-01-05] MEDS: AZITHROMYCIN 250MG TABLET PO SCH (08:44)
[2022-01-05] MEDS: PANTOPRAZOLE 40MG TAB (PROTONIX) PO SCH (08:44)
[2022-01-05] MEDS: allopurinoL 100 MG TAB PO SCH (08:44)
[2022-01-05] MEDS: ETHAMBUTOL 400MG TAB PO SCH (08:44)
== END 2022-01-05 13:52 | DRG 335 ==
LOC: M ED 05:23 → EDBD 05:23 → M ED INP 08:54 → ENRESERV 09:07 → M MSPAV 10:08
PROVIDERS: ADMIT Internal Medicine Nephrology; ATTEND Internal Medicine Nephrology
PROC: 30233N1 Transfusion of Nonautologous Red Blood Cells into Peripheral Vein, Percutaneous Approach (ICD-10-PCS; 2021-12-23)
PROC: 8E0W4CZ Robotic Assisted Procedure of Trunk Region, Percutaneous Endoscopic Approach (ICD-10-PCS; 2021-12-29)
PROC: 0DNU4ZZ Release Omentum, Percutaneous Endoscopic Approach (ICD-10-PCS; principal; 2021-12-29 14:10)
DX: K56.50 Intestinal adhesions [bands], unspecified as to partial versus complete obstruction (principal); J96.21 Acute and chronic respiratory failure with hypoxia; J69.0 Pneumonitis due to inhalation of food and vomit; K29.71 Gastritis, unspecified, with bleeding; I48.20 Chronic atrial fibrillation, unspecified; I50.32 Chronic diastolic (congestive) heart failure; I13.0 Hypertensive heart and chronic kidney disease with heart failure and stage 1 through stage 4 chronic kidney disease, or unspecified chronic kidney disease; I82.512 Chronic embolism and thrombosis of left femoral vein; J44.9 Chronic obstructive pulmonary disease, unspecified; K44.9 Diaphragmatic hernia without obstruction or gangrene; K21.9 Gastro-esophageal reflux disease without esophagitis; R13.10 Dysphagia, unspecified; Z66 Do not resuscitate; H40.9 Unspecified glaucoma; H35.30 Unspecified macular degeneration; K57.90 Diverticulosis of intestine, part unspecified, without perforation or abscess without bleeding; D50.0 Iron deficiency anemia secondary to blood loss (chronic); E11.42 Type 2 diabetes mellitus with diabetic polyneuropathy; E11.51 Type 2 diabetes mellitus with diabetic peripheral angiopathy without gangrene; E11.22 Type 2 diabetes mellitus with diabetic chronic kidney disease; I44.1 Atrioventricular block, second degree; N18.30 Chronic kidney disease, stage 3 unspecified; I25.10 Atherosclerotic heart disease of native coronary artery without angina pectoris; I27.20 Pulmonary hypertension, unspecified; I35.8 Other nonrheumatic aortic valve disorders; Z95.0 Presence of cardiac pacemaker; Z95.828 Presence of other vascular implants and grafts; Z90.49 Acquired absence of other specified parts of digestive tract; Z98.41 Cataract extraction status, right eye; Z98.42 Cataract extraction status, left eye; E86.0 Dehydration; Z88.0 Allergy status to penicillin; Z88.8 Allergy status to other drugs, medicaments and biological substances; Z88.1 Allergy status to other antibiotic agents; Z20.822 Contact with and (suspected) exposure to COVID-19

== ENCOUNTER 2022-01-13 04:10 | Inpatient (IN) | payer MEDICARE ==
[~2022-01-13] VITALS: Ht 170.2 cm; Wt 50.0 kg
[~2022-01-13 04:10] MED LIST changes: +D3 S1CAP PO; +RISATAB3 PO; +XARE10TA PO
[2022-01-13 04:49] LABS: BASO % 0.2 % (0.0-1.0); EOS # 0.1 10^3/uL (0.0-0.5); EOS % 0.8 % (0.0-3.0); HEMATOCRIT 37.2 % (36.0-47.0); HEMOGLOBIN 12.6 g/dl (12.0-15.5); LYMPH # 1.4 10^3/uL (1.5-5.0); MEAN CORPUSCULAR HEMOGLOBIN 30.2 pg (27.0-33.0); MEAN CORPUSCULAR HGB CONC 33.9 g/dl (32.0-36.5); MEAN CORPUSCULAR VOLUME 89.2 fl (80.0-96.0); MONO # 0.7 10^3/uL (0.0-0.8); MONO % 4.1 % (2.0-8.0); NEUTROPHILS # 15.4 10^3/uL (1.5-8.5); NEUTROPHILS % 86.3 % (36.0-66.0); PLATELET COUNT, AUTOMATED 329 10^3/uL (150-450); RED BLOOD COUNT 4.17 10^6/uL (4.00-5.40); WHITE BLOOD COUNT 17.9 10^3/uL (4.0-10.0)
[2022-01-13 04:59] LABS: INR 1.4; PROTHROMBIN TIME 17.6 SECONDS (12.7-14.5)
[2022-01-13 05:00] LABS: PARTIAL THROMBOPLASTIN TIME 34.3 SECONDS (25.9-37.0)
[2022-01-13 05:32] LABS: BILIRUBIN,TOTAL 0.7 MG/DL (0.2-1.0); CALCIUM LEVEL 9.8 MG/DL (8.8-10.2); CREATININE FOR GFR 1.43 MG/DL (0.55-1.30); GLOMERULAR FILTRATION RATE 37.2 (>32); MAGNESIUM LEVEL 1.2 MG/DL (1.8-2.4); POTASSIUM SERUM 5.1 MEQ/L (3.5-5.1); TOTAL PROTEIN 6.4 GM/DL (6.4-8.2)
[2022-01-13] MEDS ORDERED: XARE10TA PO (06:27)
[2022-01-13] MEDS ORDERED: HOME MED LIST COMPLETE! XX SCH (06:30)
[2022-01-13] MEDS ORDERED: CEFEPIME HCL 2 GM in D5W MINI-BAG PLUS 50 ML IV ONE (06:50)
[2022-01-13 07:39] LABS: VENOUS BASE EXCESS -13.2 (-2.0-2.0); VENOUS HCO3 12.6 MEQ/L (23.0-27.0); VENOUS O2 SATURATION 97.3 % (60.0-80.0); VENOUS PARTIAL PRESSURE CO2 28.8 mmHg (38.0-50.0); VENOUS PARTIAL PRESSURE O2 116.4 mmHg (30.0-50.0); VENOUS PH 7.259 UNITS (7.330-7.430); VENOUS TOTAL CO2 13.5 MEQ/L (24.0-28.0)
[2022-01-13] MEDS ORDERED: PANTOPRAZOLE 40MG VIAL IV ONE (07:55)
[2022-01-13] MEDS ORDERED: MAG SULF 1GM/100ML (MAG RUN) 1 GM in IV 1 EA IV ONE (08:00)
[2022-01-13] MEDS ORDERED: MOM 30ML SUSPENSION UDC PO PRN (10:30)
[2022-01-13] MEDS ORDERED: ACETAMINOPHEN TAB 650MG DOSE (2X325MG) PO PRN (10:30)
[2022-01-13] MEDS ORDERED: SENNA 8.6 MG TAB (SENOKOT) PO PRN (10:30)
[2022-01-13] MEDS ORDERED: guaiFENesin ER 600 MG TAB PO PRN (10:30)
[2022-01-13] MEDS ORDERED: SCOPOLAMINE 1MG TRANSDERMAL PATCH TOP PRN (10:30)
[2022-01-13] MEDS ORDERED: ONDANSETRON 4MG TAB PO PRN (10:30)
[2022-01-13 11:45] VITALS: BP 114/58
[2022-01-13] MEDS: PANTOPRAZOLE 40MG TAB (PROTONIX) PO SCH (12:32)
[2022-01-13] MEDS: LACTOBACILLUS ACIDOPHILUS CAP (BACID) PO SCH (12:34)
[2022-01-13] MEDS: ASPIRIN 81 MG CHEW TABLET PO SCH (12:34)
[2022-01-13] MEDS: CALCITRIOL 0.25 MCG CAP (S0169) PO SCH (12:34)
[2022-01-13] MEDS: FLUTICASONE PROP 0.05% NASAL SPRAY 16 GM (FLONASE) SCH (12:34)
[2022-01-13] MEDS: FERROUS SULFATE 325MG TAB PO SCH (12:34)
[2022-01-13] MEDS: SUCRALFATE 1 GM TAB PO SCH ×3 (12:34→21:19)
[2022-01-13] MEDS: SODIUM BICARBONATE 325 MG TAB PO SCH ×2 (12:34→21:19)
[2022-01-13] MEDS: BRINZOLAMIDE 1% OPHTH SUSP (AZOPT) 10ML OU SCH ×2 (12:34→21:19)
[2022-01-13] MEDS: allopurinoL 100 MG TAB PO SCH (12:35)
[2022-01-13] MEDS: SENOKOT S TAB PO SCH (12:35)
[2022-01-13] MEDS: ADVAIR HFA 230/21MCG INHALER INH SCH ×2 (13:28→19:13)
[2022-01-13 16:09] VITALS: BP 110/53
[2022-01-13] MEDS: RIVAROXABAN 10 MG TAB (XARELTO) PO SCH (17:02)
[2022-01-13] MEDS: CEFEPIME HCL 1 GM in D5W MINI-BAG PLUS 50 ML IV SCH (18:46)
[2022-01-13 20:00] VITALS: BP 97/46
[2022-01-13] MEDS: LATANOPROST 0.005% OPHTH SOLN 2.5 ML OU SCH (21:19)
[2022-01-14] VITALS: BP 97/46
[2022-01-14 04:00] VITALS: BP 111/54
[2022-01-14 06:02] LABS: HEMATOCRIT 30.4 % (36.0-47.0); MEAN CORPUSCULAR HEMOGLOBIN 30.2 pg (27.0-33.0); MEAN CORPUSCULAR HGB CONC 33.6 g/dl (32.0-36.5); MEAN CORPUSCULAR VOLUME 89.9 fl (80.0-96.0); PLATELET COUNT, AUTOMATED 233 10^3/uL (150-450); RED BLOOD COUNT 3.38 10^6/uL (4.00-5.40); WHITE BLOOD COUNT 23.9 10^3/uL (4.0-10.0)
[2022-01-14 06:16] LABS: HEMOGLOBIN 10.2 g/dl (12.0-15.5)
[2022-01-14 06:28] LABS: CALCIUM LEVEL 9.3 MG/DL (8.8-10.2); CREATININE FOR GFR 2.01 MG/DL (0.55-1.30); GLOMERULAR FILTRATION RATE 25.1 (>32); POTASSIUM SERUM 4.9 MEQ/L (3.5-5.1)
[2022-01-14] MEDS: CEFEPIME HCL 1 GM in D5W MINI-BAG PLUS 50 ML IV SCH ×2 (06:42→18:14)
[2022-01-14] MEDS: ADVAIR HFA 230/21MCG INHALER INH SCH ×2 (07:09→19:55)
[2022-01-14 08:00] VITALS: BP 116/57
[2022-01-14] MEDS: SENOKOT S TAB PO SCH (08:42)
[2022-01-14] MEDS: ETHAMBUTOL 400MG TAB PO SCH (08:42)
[2022-01-14] MEDS: LACTOBACILLUS ACIDOPHILUS CAP (BACID) PO SCH (08:42)
[2022-01-14] MEDS: SODIUM BICARBONATE 325 MG TAB PO SCH ×2 (08:42→20:28)
[2022-01-14] MEDS: AZITHROMYCIN 250MG TABLET PO SCH (08:43)
[2022-01-14] MEDS: TORSEMIDE 10 MG TABLET PO SCH (08:43)
[2022-01-14] MEDS: SUCRALFATE 1 GM TAB PO SCH ×4 (08:43→20:28)
[2022-01-14] MEDS: ASPIRIN 81 MG CHEW TABLET PO SCH (08:43)
[2022-01-14] MEDS: FLUTICASONE PROP 0.05% NASAL SPRAY 16 GM (FLONASE) SCH (08:44)
[2022-01-14] MEDS: CALCITRIOL 0.25 MCG CAP (S0169) PO SCH (08:44)
[2022-01-14] MEDS: FERROUS SULFATE 325MG TAB PO SCH (08:44)
[2022-01-14] MEDS: allopurinoL 100 MG TAB PO SCH (08:44)
[2022-01-14] MEDS: PANTOPRAZOLE 40MG TAB (PROTONIX) PO SCH (08:44)
[2022-01-14] MEDS: BRINZOLAMIDE 1% OPHTH SUSP (AZOPT) 10ML OU SCH ×2 (08:45→20:28)
[2022-01-14 12:00] VITALS: BP 121/56
[2022-01-14 16:00] VITALS: BP 133/76
[2022-01-14] MEDS: RIVAROXABAN 10 MG TAB (XARELTO) PO SCH (18:13)
[2022-01-14 20:00] VITALS: BP 128/70
[2022-01-14] MEDS: LATANOPROST 0.005% OPHTH SOLN 2.5 ML OU SCH (20:28)
[2022-01-15] VITALS: BP 140/74
[2022-01-15 04:00] VITALS: BP 125/80
[2022-01-15 05:14] LABS: HEMATOCRIT 26.6 % (36.0-47.0); HEMOGLOBIN 9.1 g/dl (12.0-15.5); MEAN CORPUSCULAR HEMOGLOBIN 29.8 pg (27.0-33.0); MEAN CORPUSCULAR HGB CONC 34.2 g/dl (32.0-36.5); MEAN CORPUSCULAR VOLUME 87.2 fl (80.0-96.0); PLATELET COUNT, AUTOMATED 226 10^3/uL (150-450); RED BLOOD COUNT 3.05 10^6/uL (4.00-5.40)
[2022-01-15 05:30] LABS: CALCIUM LEVEL 8.9 MG/DL (8.8-10.2); CREATININE FOR GFR 1.5 MG/DL (0.55-1.30); GLOMERULAR FILTRATION RATE 35.2 (>32); POTASSIUM SERUM 4.3 MEQ/L (3.5-5.1)
[2022-01-15] MEDS: CEFEPIME HCL 1 GM in D5W MINI-BAG PLUS 50 ML IV SCH ×2 (05:55→18:20)
[2022-01-15] MEDS: ADVAIR HFA 230/21MCG INHALER INH SCH ×2 (07:03→19:40)
[2022-01-15 07:21] VITALS: BP 130/63
[2022-01-15] MEDS: LACTOBACILLUS ACIDOPHILUS CAP (BACID) PO SCH (09:26)
[2022-01-15] MEDS: CALCITRIOL 0.25 MCG CAP (S0169) PO SCH (09:26)
[2022-01-15] MEDS: PANTOPRAZOLE 40MG TAB (PROTONIX) PO SCH (09:26)
[2022-01-15] MEDS: allopurinoL 100 MG TAB PO SCH (09:26)
[2022-01-15] MEDS: ASPIRIN 81 MG CHEW TABLET PO SCH (09:26)
[2022-01-15] MEDS: BRINZOLAMIDE 1% OPHTH SUSP (AZOPT) 10ML OU SCH ×2 (09:27→21:03)
[2022-01-15] MEDS: SENOKOT S TAB PO SCH (09:27)
[2022-01-15] MEDS: FERROUS SULFATE 325MG TAB PO SCH (09:27)
[2022-01-15] MEDS: SUCRALFATE 1 GM TAB PO SCH ×4 (09:27→21:03)
[2022-01-15] MEDS: FLUTICASONE PROP 0.05% NASAL SPRAY 16 GM (FLONASE) SCH (09:27)
[2022-01-15] MEDS: SODIUM BICARBONATE 325 MG TAB PO SCH ×2 (09:27→21:03)
[2022-01-15 12:20] VITALS: BP 138/64
[2022-01-15 14:00] LABS: ABG BASE EXCESS -6.3 (-2.0-2.0); ABG HCO3 16.7 MEQ/L (22.0-26.0); ABG O2 SATURATION 93.7 % (95.0-99.0); ABG PARTIAL PRESSURE CO2 25.6 mmHg (35.0-45.0); ABG PARTIAL PRESSURE O2 69.1 mmHg (75.0-100.0); ABG STANDARD HCO3 19.3 MEQ/L (22.0-26.0); ABG TOTAL CO2 17.5 MEQ/L (23.0-31.0); ABG pH (ARTERIAL) 7.432 UNITS (7.350-7.450)
[2022-01-15 16:16] VITALS: BP 132/62
[2022-01-15] MEDS: RIVAROXABAN 10 MG TAB (XARELTO) PO SCH (18:21)
[2022-01-15 20:00] VITALS: BP 146/64
[2022-01-15] MEDS: LATANOPROST 0.005% OPHTH SOLN 2.5 ML OU SCH (21:04)
[2022-01-16 04:00] VITALS: BP 131/59
[2022-01-16] MEDS: CEFEPIME HCL 1 GM in D5W MINI-BAG PLUS 50 ML IV SCH ×2 (06:08→18:20)
[2022-01-16] MEDS: ADVAIR HFA 230/21MCG INHALER INH SCH ×2 (07:14→19:48)
[2022-01-16] MEDS: SUCRALFATE 1 GM TAB PO SCH ×4 (07:30→20:03)
[2022-01-16 08:01] VITALS: BP 123/60
[2022-01-16] MEDS: AZITHROMYCIN 250MG TABLET PO SCH (09:00)
[2022-01-16] MEDS: allopurinoL 100 MG TAB PO SCH (09:00)
[2022-01-16] MEDS: TORSEMIDE 10 MG TABLET PO SCH (09:00)
[2022-01-16] MEDS: LACTOBACILLUS ACIDOPHILUS CAP (BACID) PO SCH (09:00)
[2022-01-16] MEDS: ETHAMBUTOL 400MG TAB PO SCH (09:00)
[2022-01-16] MEDS: SENOKOT S TAB PO SCH (09:00)
[2022-01-16] MEDS: CALCITRIOL 0.25 MCG CAP (S0169) PO SCH (09:00)
[2022-01-16] MEDS: PANTOPRAZOLE 40MG TAB (PROTONIX) PO SCH (09:00)
[2022-01-16] MEDS: ASPIRIN 81 MG CHEW TABLET PO SCH (09:00)
[2022-01-16] MEDS: SODIUM BICARBONATE 325 MG TAB PO SCH ×2 (09:00→20:04)
[2022-01-16 10:48] LABS: HEMATOCRIT 31.7 % (36.0-47.0); HEMOGLOBIN 10.8 g/dl (12.0-15.5); MEAN CORPUSCULAR HEMOGLOBIN 30.3 pg (27.0-33.0); MEAN CORPUSCULAR HGB CONC 34.1 g/dl (32.0-36.5); PLATELET COUNT, AUTOMATED 281 10^3/uL (150-450); RED BLOOD COUNT 3.56 10^6/uL (4.00-5.40); WHITE BLOOD COUNT 11.7 10^3/uL (4.0-10.0)
[2022-01-16] MEDS: FERROUS SULFATE 325MG TAB PO SCH (11:01)
[2022-01-16 11:14] LABS: CALCIUM LEVEL 9.9 MG/DL (8.8-10.2); CREATININE FOR GFR 1.26 MG/DL (0.55-1.30); GLOMERULAR FILTRATION RATE 43.1 (>32)
[2022-01-16 11:27] VITALS: BP 163/67
[2022-01-16] MEDS: FLUTICASONE PROP 0.05% NASAL SPRAY 16 GM (FLONASE) SCH (12:14)
[2022-01-16] MEDS: BRINZOLAMIDE 1% OPHTH SUSP (AZOPT) 10ML OU SCH ×2 (12:15→20:04)
[2022-01-16 16:08] LABS: BODY FLUID CULTURE Not indicated. (.); LEGIONELLA ANTIGEN URINE Negative (Negative); ORGANISM ID Not indicated. (.); SPECIMEN SOURCE Urine (.); URINE STREP PNEUMONIAE ANTIGEN Negative (Negative)
[2022-01-16 16:12] VITALS: BP 154/69
[2022-01-16] MEDS: RIVAROXABAN 10 MG TAB (XARELTO) PO SCH (17:05)
[2022-01-16 20:00] VITALS: BP 143/67
[2022-01-16] MEDS: LATANOPROST 0.005% OPHTH SOLN 2.5 ML OU SCH (20:04)
[2022-01-16 21:31] VITALS: BP 140/61
[2022-01-17 05:06] VITALS: BP 137/64
[2022-01-17] MEDS: CEFEPIME HCL 1 GM in D5W MINI-BAG PLUS 50 ML IV SCH ×2 (06:36→18:19)
[2022-01-17 07:12] LABS: HEMATOCRIT 32.9 % (36.0-47.0); HEMOGLOBIN 10.8 g/dl (12.0-15.5); MEAN CORPUSCULAR HEMOGLOBIN 29.6 pg (27.0-33.0); MEAN CORPUSCULAR HGB CONC 32.8 g/dl (32.0-36.5); MEAN CORPUSCULAR VOLUME 90.1 fl (80.0-96.0); PLATELET COUNT, AUTOMATED 285 10^3/uL (150-450); RED BLOOD COUNT 3.65 10^6/uL (4.00-5.40); WHITE BLOOD COUNT 8.7 10^3/uL (4.0-10.0)
[2022-01-17 07:32] LABS: CALCIUM LEVEL 9.9 MG/DL (8.8-10.2); CREATININE FOR GFR 1.13 MG/DL (0.55-1.30); GLOMERULAR FILTRATION RATE 48.8 (>32); POTASSIUM SERUM 4.2 MEQ/L (3.5-5.1)
[2022-01-17] MEDS: ADVAIR HFA 230/21MCG INHALER INH SCH ×2 (07:50→20:52)
[2022-01-17] MEDS: FERROUS SULFATE 325MG TAB PO SCH (10:08)
[2022-01-17] MEDS: LACTOBACILLUS ACIDOPHILUS CAP (BACID) PO SCH (10:08)
[2022-01-17] MEDS: PANTOPRAZOLE 40MG TAB (PROTONIX) PO SCH (10:08)
[2022-01-17] MEDS: SUCRALFATE 1 GM TAB PO SCH ×4 (10:08→21:27)
[2022-01-17] MEDS: CALCITRIOL 0.25 MCG CAP (S0169) PO SCH (10:08)
[2022-01-17] MEDS: ASPIRIN 81 MG CHEW TABLET PO SCH (10:08)
[2022-01-17] MEDS: SODIUM BICARBONATE 325 MG TAB PO SCH ×2 (10:09→21:27)
[2022-01-17] MEDS: FLUTICASONE PROP 0.05% NASAL SPRAY 16 GM (FLONASE) SCH (10:09)
[2022-01-17] MEDS: allopurinoL 100 MG TAB PO SCH (10:09)
[2022-01-17] MEDS: BRINZOLAMIDE 1% OPHTH SUSP (AZOPT) 10ML OU SCH ×2 (10:09→21:27)
[2022-01-17] MEDS: SENOKOT S TAB PO SCH (10:09)
[2022-01-17 14:00] VITALS: BP 153/74
[2022-01-17] MEDS: RIVAROXABAN 10 MG TAB (XARELTO) PO SCH (18:18)
[2022-01-17 21:05] VITALS: BP 145/73
[2022-01-17] MEDS: LATANOPROST 0.005% OPHTH SOLN 2.5 ML OU SCH (21:28)
[2022-01-17 22:00] VITALS: BP 129/69
[2022-01-18 06:00] VITALS: BP 154/66
[2022-01-18] MEDS: CEFEPIME HCL 1 GM in D5W MINI-BAG PLUS 50 ML IV SCH ×2 (06:27→18:08)
[2022-01-18 06:47] LABS: HEMOGLOBIN 10.7 g/dl (12.0-15.5); MEAN CORPUSCULAR HEMOGLOBIN 29.5 pg (27.0-33.0); MEAN CORPUSCULAR HGB CONC 33.4 g/dl (32.0-36.5); MEAN CORPUSCULAR VOLUME 88.2 fl (80.0-96.0); PLATELET COUNT, AUTOMATED 299 10^3/uL (150-450); RED BLOOD COUNT 3.63 10^6/uL (4.00-5.40); WHITE BLOOD COUNT 8.8 10^3/uL (4.0-10.0)
[2022-01-18 07:05] LABS: CALCIUM LEVEL 10.1 MG/DL (8.8-10.2); CREATININE FOR GFR 0.96 MG/DL (0.55-1.30); GLOMERULAR FILTRATION RATE 58.9 (>32); POTASSIUM SERUM 4.1 MEQ/L (3.5-5.1)
[2022-01-18] MEDS: ADVAIR HFA 230/21MCG INHALER INH SCH ×2 (07:32→20:24)
[2022-01-18] MEDS: SUCRALFATE 1 GM TAB PO SCH ×4 (08:28→22:04)
[2022-01-18] MEDS: CALCITRIOL 0.25 MCG CAP (S0169) PO SCH (08:28)
[2022-01-18] MEDS: BRINZOLAMIDE 1% OPHTH SUSP (AZOPT) 10ML OU SCH ×2 (08:28→22:04)
[2022-01-18] MEDS: FLUTICASONE PROP 0.05% NASAL SPRAY 16 GM (FLONASE) SCH (08:28)
[2022-01-18] MEDS: SODIUM BICARBONATE 325 MG TAB PO SCH ×2 (08:28→22:04)
[2022-01-18] MEDS: LACTOBACILLUS ACIDOPHILUS CAP (BACID) PO SCH (08:28)
[2022-01-18] MEDS: allopurinoL 100 MG TAB PO SCH (08:28)
[2022-01-18] MEDS: SENOKOT S TAB PO SCH (08:28)
[2022-01-18] MEDS: FERROUS SULFATE 325MG TAB PO SCH (08:28)
[2022-01-18] MEDS: PANTOPRAZOLE 40MG TAB (PROTONIX) PO SCH (08:28)
[2022-01-18] MEDS: ASPIRIN 81 MG CHEW TABLET PO SCH (08:28)
[2022-01-18] MEDS: TORSEMIDE 10 MG TABLET PO SCH (08:29)
[2022-01-18 14:00] VITALS: BP 125/58
[2022-01-18] MEDS: RIVAROXABAN 10 MG TAB (XARELTO) PO SCH (17:18)
[2022-01-18] MEDS: LATANOPROST 0.005% OPHTH SOLN 2.5 ML OU SCH (22:05)
[2022-01-19 06:00] VITALS: BP 110/64
[2022-01-19 07:09] LABS: HEMATOCRIT 31.5 % (36.0-47.0); HEMOGLOBIN 10.6 g/dl (12.0-15.5); MEAN CORPUSCULAR HEMOGLOBIN 30.2 pg (27.0-33.0); MEAN CORPUSCULAR HGB CONC 33.7 g/dl (32.0-36.5); MEAN CORPUSCULAR VOLUME 89.7 fl (80.0-96.0); PLATELET COUNT, AUTOMATED 270 10^3/uL (150-450); RED BLOOD COUNT 3.51 10^6/uL (4.00-5.40); WHITE BLOOD COUNT 7.9 10^3/uL (4.0-10.0)
[2022-01-19] MEDS: ADVAIR HFA 230/21MCG INHALER INH SCH ×2 (07:19→19:15)
[2022-01-19 07:36] LABS: CALCIUM LEVEL 9.9 MG/DL (8.8-10.2); CREATININE FOR GFR 1.06 MG/DL (0.55-1.30); GLOMERULAR FILTRATION RATE 52.6 (>32); POTASSIUM SERUM 3.6 MEQ/L (3.5-5.1)
[2022-01-19] MEDS: SUCRALFATE 1 GM TAB PO SCH ×4 (08:26→20:11)
[2022-01-19] MEDS: LACTOBACILLUS ACIDOPHILUS CAP (BACID) PO SCH (08:26)
[2022-01-19] MEDS: CALCITRIOL 0.25 MCG CAP (S0169) PO SCH (08:26)
[2022-01-19] MEDS: PANTOPRAZOLE 40MG TAB (PROTONIX) PO SCH (08:26)
[2022-01-19] MEDS: FERROUS SULFATE 325MG TAB PO SCH (08:26)
[2022-01-19] MEDS: SENOKOT S TAB PO SCH (08:26)
[2022-01-19] MEDS: AZITHROMYCIN 250MG TABLET PO SCH (08:26)
[2022-01-19] MEDS: SODIUM BICARBONATE 325 MG TAB PO SCH ×2 (08:26→20:11)
[2022-01-19] MEDS: allopurinoL 100 MG TAB PO SCH (08:26)
[2022-01-19] MEDS: ASPIRIN 81 MG CHEW TABLET PO SCH (08:26)
[2022-01-19] MEDS: BRINZOLAMIDE 1% OPHTH SUSP (AZOPT) 10ML OU SCH ×2 (08:27→20:12)
[2022-01-19] MEDS: FLUTICASONE PROP 0.05% NASAL SPRAY 16 GM (FLONASE) SCH (08:27)
[2022-01-19] MEDS: CEFEPIME HCL 2 GM in D5W MINI-BAG PLUS 50 ML IV SCH ×2 (08:27→20:11)
[2022-01-19] MEDS: ETHAMBUTOL 400MG TAB PO SCH (08:27)
[2022-01-19 14:00] VITALS: BP 106/62
[2022-01-19] MEDS: RIVAROXABAN 10 MG TAB (XARELTO) PO SCH (18:38)
[2022-01-19] MEDS: LATANOPROST 0.005% OPHTH SOLN 2.5 ML OU SCH (20:12)
[2022-01-19 20:28] VITALS: BP 130/54
[2022-01-20 05:04] VITALS: BP 132/55
[2022-01-20 06:52] LABS: HEMATOCRIT 32.3 % (36.0-47.0); HEMOGLOBIN 10.8 g/dl (12.0-15.5); MEAN CORPUSCULAR HEMOGLOBIN 29.5 pg (27.0-33.0); MEAN CORPUSCULAR HGB CONC 33.4 g/dl (32.0-36.5); MEAN CORPUSCULAR VOLUME 88.3 fl (80.0-96.0); PLATELET COUNT, AUTOMATED 300 10^3/uL (150-450); RED BLOOD COUNT 3.66 10^6/uL (4.00-5.40); WHITE BLOOD COUNT 9.5 10^3/uL (4.0-10.0)
[2022-01-20 07:23] LABS: CALCIUM LEVEL 10.1 MG/DL (8.8-10.2); CREATININE FOR GFR 1.15 MG/DL (0.55-1.30); GLOMERULAR FILTRATION RATE 47.9 (>32); POTASSIUM SERUM 3.7 MEQ/L (3.5-5.1)
[2022-01-20] MEDS: ADVAIR HFA 230/21MCG INHALER INH SCH ×2 (07:28→18:19)
[2022-01-20] MEDS: SUCRALFATE 1 GM TAB PO SCH ×4 (09:01→21:00)
[2022-01-20] MEDS: CEFEPIME HCL 2 GM in D5W MINI-BAG PLUS 50 ML IV SCH (09:02)
[2022-01-20] MEDS: allopurinoL 100 MG TAB PO SCH (09:02)
[2022-01-20] MEDS: LACTOBACILLUS ACIDOPHILUS CAP (BACID) PO SCH (09:02)
[2022-01-20] MEDS: PANTOPRAZOLE 40MG TAB (PROTONIX) PO SCH (09:02)
[2022-01-20] MEDS: CALCITRIOL 0.25 MCG CAP (S0169) PO SCH (09:02)
[2022-01-20] MEDS: SENOKOT S TAB PO SCH (09:02)
[2022-01-20] MEDS: SODIUM BICARBONATE 325 MG TAB PO SCH ×2 (09:02→21:00)
[2022-01-20] MEDS: ASPIRIN 81 MG CHEW TABLET PO SCH (09:02)
[2022-01-20] MEDS: FERROUS SULFATE 325MG TAB PO SCH (09:02)
[2022-01-20] MEDS: TORSEMIDE 10 MG TABLET PO SCH (09:02)
[2022-01-20] MEDS: FLUTICASONE PROP 0.05% NASAL SPRAY 16 GM (FLONASE) SCH (09:03)
[2022-01-20] MEDS: BRINZOLAMIDE 1% OPHTH SUSP (AZOPT) 10ML OU SCH ×2 (09:03→21:44)
[2022-01-20 14:00] VITALS: BP 134/57
[2022-01-20] MEDS: RIVAROXABAN 10 MG TAB (XARELTO) PO SCH (17:50)
[2022-01-20] MEDS: LATANOPROST 0.005% OPHTH SOLN 2.5 ML OU SCH (21:44)
[2022-01-20 22:00] VITALS: BP 122/58
[2022-01-21 06:00] VITALS: BP 148/60
[2022-01-21 07:12] LABS: HEMATOCRIT 34.8 % (36.0-47.0); HEMOGLOBIN 11.5 g/dl (12.0-15.5); MEAN CORPUSCULAR HEMOGLOBIN 29.9 pg (27.0-33.0); MEAN CORPUSCULAR VOLUME 90.4 fl (80.0-96.0); PLATELET COUNT, AUTOMATED 344 10^3/uL (150-450); RED BLOOD COUNT 3.85 10^6/uL (4.00-5.40); WHITE BLOOD COUNT 10.9 10^3/uL (4.0-10.0)
[2022-01-21 07:40] LABS: ALBUMIN 2.5 GM/DL (3.2-5.2); ALT/SGPT 10 U/L (12-78); BILIRUBIN,TOTAL 0.3 MG/DL (0.2-1.0); BLOOD UREA NITROGEN 33 MG/DL (7-18); CALCIUM LEVEL 10.8 MG/DL (8.8-10.2); CARBON DIOXIDE LEVEL 18 MEQ/L (21-32); CHLORIDE LEVEL 109 MEQ/L (98-107); CREATININE FOR GFR 1.25 MG/DL (0.55-1.30); GLOMERULAR FILTRATION RATE 43.5 (>32); GLUCOSE, FASTING 87 MG/DL (70-100); POTASSIUM SERUM 3.8 MEQ/L (3.5-5.1); SODIUM LEVEL 140 MEQ/L (136-145); TOTAL PROTEIN 5.9 GM/DL (6.4-8.2)
[2022-01-21] MEDS: ADVAIR HFA 230/21MCG INHALER INH SCH ×2 (07:59→19:45)
[2022-01-21 09:00] LABS: ABG BASE EXCESS -6.1 (-2.0-2.0); ABG HCO3 17.5 MEQ/L (22.0-26.0); ABG O2 SATURATION 91.4 % (95.0-99.0); ABG PARTIAL PRESSURE CO2 28.9 mmHg (35.0-45.0); ABG PARTIAL PRESSURE O2 63.2 mmHg (75.0-100.0); ABG STANDARD HCO3 19.4 MEQ/L (22.0-26.0); ABG TOTAL CO2 18.3 MEQ/L (23.0-31.0); ABG pH (ARTERIAL) 7.399 UNITS (7.350-7.450)
[2022-01-21] MEDS ORDERED: CEFEPIME HCL 2 GM in D5W MINI-BAG PLUS 50 ML IV SCH (09:00)
[2022-01-21] MEDS ORDERED: NS 1,000 ML IV SCH (09:00)
[2022-01-21 09:06] LABS: NT-PRO BNP 1778 PG/ML (<450)
[2022-01-21] MEDS: SODIUM BICARBONATE 325 MG TAB PO SCH ×2 (09:08→21:00)
[2022-01-21] MEDS: ASPIRIN 81 MG CHEW TABLET PO SCH (09:08)
[2022-01-21] MEDS: AZITHROMYCIN 250MG TABLET PO SCH (09:08)
[2022-01-21] MEDS: SENOKOT S TAB PO SCH (09:08)
[2022-01-21] MEDS: allopurinoL 100 MG TAB PO SCH (09:08)
[2022-01-21] MEDS: CALCITRIOL 0.25 MCG CAP (S0169) PO SCH (09:08)
[2022-01-21] MEDS: LACTOBACILLUS ACIDOPHILUS CAP (BACID) PO SCH (09:09)
[2022-01-21] MEDS: FERROUS SULFATE 325MG TAB PO SCH (09:09)
[2022-01-21] MEDS: ETHAMBUTOL 400MG TAB PO SCH (09:09)
[2022-01-21] MEDS: PANTOPRAZOLE 40MG TAB (PROTONIX) PO SCH (09:10)
[2022-01-21] MEDS: SUCRALFATE 1 GM TAB PO SCH ×4 (09:10→21:00)
[2022-01-21] MEDS: BRINZOLAMIDE 1% OPHTH SUSP (AZOPT) 10ML OU SCH ×3 (09:11→21:57)
[2022-01-21] MEDS: FLUTICASONE PROP 0.05% NASAL SPRAY 16 GM (FLONASE) SCH (09:11)
[2022-01-21 10:21] LABS: CK-MB VALUE MASS < 1.0 NG/ML (<3.6); CPK CREATINE PHOSPHOKINASE 9 U/L (26-192); MB/CK RELATIVE INDEX 11.11 (< OR =4)
[2022-01-21 14:00] VITALS: BP 110/62
[2022-01-21] MEDS: RIVAROXABAN 10 MG TAB (XARELTO) PO SCH (17:31)
[2022-01-21 20:18] VITALS: BP 106/54
[2022-01-21 20:39] VITALS: BP 109/62
[2022-01-21] MEDS: LATANOPROST 0.005% OPHTH SOLN 2.5 ML OU SCH ×2 (21:00→21:57)
[2022-01-21] MEDS ORDERED: D5W/0.9% SODIUM CHLORIDE 1,000 ML IV SCH (21:05)
[2022-01-21 21:25] LABS: VENOUS BASE EXCESS -6.6 (-2.0-2.0); VENOUS HCO3 18.8 MEQ/L (23.0-27.0); VENOUS PARTIAL PRESSURE CO2 37.2 mmHg (38.0-50.0); VENOUS PARTIAL PRESSURE O2 38.7 mmHg (30.0-50.0); VENOUS PH 7.322 UNITS (7.330-7.430); VENOUS STANDARD HCO3 18.6 MEQ/L
[2022-01-21] MEDS: metroNIDAZOLE 500 MG in IV 1 EA IV SCH (21:54)
[2022-01-21 22:12] LABS: MAGNESIUM LEVEL 1.7 MG/DL (1.8-2.4); PHOSPHORUS LEVEL 3.7 MG/DL (2.5-4.9); THYROID STIMULATING HORMONE 1.51 uIU/ML (0.358-3.740)
[2022-01-22 00:58] VITALS: O2SAT 94
[2022-01-22] MEDS: MAG SULF 1GM/100ML (MAG RUN) 1 GM in IV 1 EA IV SCH ×2 (01:11→02:25)
[2022-01-22 05:25] VITALS: BP 114/55
[2022-01-22] MEDS: metroNIDAZOLE 500 MG in IV 1 EA IV SCH (05:55)
[2022-01-22 06:23] LABS: HEMATOCRIT 35.4 % (36.0-47.0); HEMOGLOBIN 11.8 g/dl (12.0-15.5); MEAN CORPUSCULAR HEMOGLOBIN 30.5 pg (27.0-33.0); MEAN CORPUSCULAR HGB CONC 33.3 g/dl (32.0-36.5); MEAN CORPUSCULAR VOLUME 91.5 fl (80.0-96.0); PLATELET COUNT, AUTOMATED 322 10^3/uL (150-450); RED BLOOD COUNT 3.87 10^6/uL (4.00-5.40); WHITE BLOOD COUNT 9.6 10^3/uL (4.0-10.0)
[2022-01-22 06:51] LABS: ALBUMIN 2.3 GM/DL (3.2-5.2); ALT/SGPT 6 U/L (12-78); BILIRUBIN,TOTAL 0.2 MG/DL (0.2-1.0); BLOOD UREA NITROGEN 33 MG/DL (7-18); CALCIUM LEVEL 10.3 MG/DL (8.8-10.2); CARBON DIOXIDE LEVEL 19 MEQ/L (21-32); CHLORIDE LEVEL 114 MEQ/L (98-107); CREATININE FOR GFR 1.19 MG/DL (0.55-1.30); GLUCOSE, FASTING 105 MG/DL (70-100); POTASSIUM SERUM 3.8 MEQ/L (3.5-5.1); SODIUM LEVEL 144 MEQ/L (136-145); TOTAL PROTEIN 5.3 GM/DL (6.4-8.2)
[2022-01-22] MEDS: SUCRALFATE 1 GM TAB PO SCH (07:30)
[2022-01-22] MEDS: ADVAIR HFA 230/21MCG INHALER INH SCH (07:43)
[2022-01-22] MEDS ORDERED: MAG SULF 1GM/100ML (MAG RUN) 1 GM in IV 1 EA IV ONE (08:00)
[2022-01-22] MEDS ORDERED: ATROPINE SULFATE 1% OP SOLN 2 ML BTL SL PRN (09:50)
[2022-01-22] MEDS ORDERED: MORPHINE 2 MG/ML 1ML VIAL IV PRN (09:50)
[2022-01-22] MEDS ORDERED: LORazepam 2 MG/ML VIAL IV PRN (09:50)
[2022-01-22] MEDS ORDERED: SALIVA SUBSTITUTE(MOUTHKOTE) BTL MT PRN (14:55)
[2022-01-22] MEDS ORDERED: MORP1SOL5 PO (19:34)
[2022-01-22] MEDS ORDERED: ATIV1TAB10 PO (19:34)
[2022-01-22] MEDS ORDERED: HYOS125TA PO (19:34)
== END 2022-01-23 10:56 | DRG 177 ==
LOC: M ED 04:10 → EDBD 04:10 → M PCU 10:41 → EEVIPCON 10:41 → ENRESERV 11:10 → M MSPAV 01-16 21:22
PROVIDERS: ADMIT Internal Medicine; ATTEND Internal Medicine
DX: J69.0 Pneumonitis due to inhalation of food and vomit (principal); G93.41 Metabolic encephalopathy; N39.0 Urinary tract infection, site not specified; I50.32 Chronic diastolic (congestive) heart failure; I13.0 Hypertensive heart and chronic kidney disease with heart failure and stage 1 through stage 4 chronic kidney disease, or unspecified chronic kidney disease; J96.11 Chronic respiratory failure with hypoxia; I48.20 Chronic atrial fibrillation, unspecified; J44.9 Chronic obstructive pulmonary disease, unspecified; H35.30 Unspecified macular degeneration; H40.9 Unspecified glaucoma; Z51.5 Encounter for palliative care; D64.9 Anemia, unspecified; Z66 Do not resuscitate; E11.42 Type 2 diabetes mellitus with diabetic polyneuropathy; E11.51 Type 2 diabetes mellitus with diabetic peripheral angiopathy without gangrene; N18.30 Chronic kidney disease, stage 3 unspecified; E11.22 Type 2 diabetes mellitus with diabetic chronic kidney disease; I27.20 Pulmonary hypertension, unspecified; R91.8 Other nonspecific abnormal finding of lung field; I35.8 Other nonrheumatic aortic valve disorders; I44.1 Atrioventricular block, second degree; R13.10 Dysphagia, unspecified; B95.2 Enterococcus as the cause of diseases classified elsewhere; K44.9 Diaphragmatic hernia without obstruction or gangrene; Z98.41 Cataract extraction status, right eye; Z98.42 Cataract extraction status, left eye; Z90.49 Acquired absence of other specified parts of digestive tract; Z79.82 Long term (current) use of aspirin; Z79.899 Other long term (current) drug therapy; Z79.01 Long term (current) use of anticoagulants; Z95.0 Presence of cardiac pacemaker; Z88.0 Allergy status to penicillin; Z88.1 Allergy status to other antibiotic agents; Z88.8 Allergy status to other drugs, medicaments and biological substances; Z86.718 Personal history of other venous thrombosis and embolism; Z87.19 Personal history of other diseases of the digestive system

== ENCOUNTER → 2022-01-31 | Outpatient (REF) | payer MEDICARE ==
[~2022-01-31] MED LIST changes: +ALBU2.5V10 INH; -ALBU83IN INH; +ATIV1TAB10 PO; +HYOS125TA PO; +MORP1SOL5 PO
== END ==
LOC: SKLAB7 07:00
PROVIDERS: ATTEND Radiology Diagnostic Radiology
DX: R11.10 Vomiting, unspecified (principal)

== ENCOUNTER → 2022-03-29 | Outpatient (CLI) | payer MEDICARE | LOC: SKLAB7 04:14 | PROVIDERS: ATTEND Neuromusculoskeletal Medicine & OMM | DX: Z20.822 Contact with and (suspected) exposure to COVID-19 (principal) ==

== ENCOUNTER → 2022-03-30 | Outpatient (REF) | payer MEDICARE | LOC: SKLAB7 09:57 | PROVIDERS: ATTEND Nurse Practitioner Family | DX: Z20.822 Contact with and (suspected) exposure to COVID-19 (principal) ==

== ENCOUNTER → 2022-08-16 | Outpatient (REF) | payer MEDICARE ==
[~2022-08-16] MED LIST changes: +LEVO1TAB38 PO; -LEVO250T3 PO
== END ==
LOC: SKLAB7 13:26
PROVIDERS: ATTEND Neuromusculoskeletal Medicine & OMM
DX: R50.9 Fever, unspecified (principal)

== ENCOUNTER → 2022-12-31 | Outpatient (REF) | payer MEDICARE ==
[~2022-12-31] MED LIST changes: +FLUT50SP17; -FLUTISP; +POTA-298 PO; -POTA1TAB14 PO; +SENN-186 PO; -SENN-80 PO
[2022-12-31 09:47] LABS: HEMATOCRIT 32.4 % (36.0-47.0); HEMOGLOBIN 10.5 g/dl (12.0-15.5); MEAN CORPUSCULAR HEMOGLOBIN 28.8 pg (27.0-33.0); MEAN CORPUSCULAR HGB CONC 32.4 g/dl (32.0-36.5); PLATELET COUNT, AUTOMATED 223 10^3/uL (150-450); RED BLOOD COUNT 3.64 10^6/uL (4.00-5.40); WHITE BLOOD COUNT 6.6 10^3/uL (4.0-10.0)
[2022-12-31 10:18] LABS: HEMOGLOBIN A1c 5.7 % (4.0-6.0)
[2022-12-31 10:19] LABS: ALBUMIN 2.9 G/DL (3.2-5.2); ALKALINE PHOSPHATASE 100 U/L (46-116); ALT/SGPT < 9 U/L (7.0-40); AST/SGOT < 8 U/L (<34); BILIRUBIN,TOTAL 0.2 MG/DL (0.3-1.2); BLOOD UREA NITROGEN 38 MG/DL (9-23); CALCIUM LEVEL 8.5 MG/DL (8.3-10.6); CARBON DIOXIDE LEVEL 18 MMOL/L (20-31); CHLORIDE LEVEL 106 MMOL/L (98-107); CREATININE FOR GFR 1.32 MG/DL (0.55-1.30); GLOMERULAR FILTRATION RATE 40.7 (>32); GLUCOSE, FASTING 139 MG/DL (74-106); POTASSIUM SERUM 4.9 MMOL/L (3.5-5.1); SODIUM LEVEL 132 MMOL/L (136-145); TOTAL PROTEIN 5.6 G/DL (5.7-8.2)
== END ==
LOC: SKLAB2 07:00
PROVIDERS: ATTEND Internal Medicine
DX: I10 Essential (primary) hypertension (principal); Z79.899 Other long term (current) drug therapy

== ENCOUNTER → 2023-01-28 | Outpatient (REF) | payer MEDICARE ==
[2023-01-28 15:09] LABS: HEMOGLOBIN 9.9 g/dl (12.0-15.5); MEAN CORPUSCULAR HEMOGLOBIN 29.1 pg (27.0-33.0); MEAN CORPUSCULAR HGB CONC 31.9 g/dl (32.0-36.5); MEAN CORPUSCULAR VOLUME 91.2 fl (80.0-96.0); PLATELET COUNT, AUTOMATED 225 10^3/uL (150-450); WHITE BLOOD COUNT 7.5 10^3/uL (4.0-10.0)
[2023-01-28 15:20] LABS: ALBUMIN 2.7 G/DL (3.2-5.2); ALKALINE PHOSPHATASE 96 U/L (46-116); ALT/SGPT < 9 U/L (7.0-40); AST/SGOT < 8 U/L (<34); BILIRUBIN,TOTAL 0.2 MG/DL (0.3-1.2); BLOOD UREA NITROGEN 37 MG/DL (9-23); CALCIUM LEVEL 8.3 MG/DL (8.3-10.6); CARBON DIOXIDE LEVEL 18 MMOL/L (20-31); CHLORIDE LEVEL 111 MMOL/L (98-107); CREATININE FOR GFR 1.51 MG/DL (0.55-1.30); GLOMERULAR FILTRATION RATE 34.9 (>32); GLUCOSE, FASTING 181 MG/DL (74-106); POTASSIUM SERUM 3.8 MMOL/L (3.5-5.1); SODIUM LEVEL 137 MMOL/L (136-145); TOTAL PROTEIN 5.2 G/DL (5.7-8.2)
== END ==
LOC: SKLAB2 14:03
PROVIDERS: ATTEND Internal Medicine
DX: R07.9 Chest pain, unspecified (principal); I70.0 Atherosclerosis of aorta; Z95.0 Presence of cardiac pacemaker

== ENCOUNTER → 2023-02-14 | Outpatient (CLI) | payer MEDICARE ==
[2023-02-14 12:48] LABS: APPEARANCE, URINE MANUAL CLOUDY (CLEAR); COLOR, URINE MANUAL YELLOW (YELLOW)
[2023-02-14 12:49] LABS: PH,URINE MAN 8.5 UNITS (5.0 - 7.0); SPECIFIC GRAVITY,URINE MANUAL 1.005 (1.002-1.035)
[2023-02-14 12:50] LABS: BILIRUBIN, URINE MANUAL NEGATIVE (NEGATIVE); BLOOD URINE MANUAL POSITIVE (NEGATIVE); GLUCOSE, URINE (UA) MANUAL NEGATIVE (NEGATIVE); KETONE, URINE MANUAL NEGATIVE (NEGATIVE); LEUKOCYTE ESTERASE, URINE MAN POSITIVE (NEGATIVE); NITRITE, URINE MANUAL NEGATIVE (NEGATIVE); PROTEIN, URINE MANUAL 2+ mg/dL (NEGATIVE); UROBILINOGEN, URINE MANUAL NORMAL (NORMAL)
[2023-02-14 12:59] LABS: BACTERIA, URINE LARGE AMOUNT; HYALINE CAST, URINE NONE SEEN /lpf (0-1); RENAL EPITHELIAL CELLS, URINE SMALL AMOUNT /hpf; SQUAMOUS EPITHELIAL CELL URINE SMALL AMOUNT /hpf (SMALL AMT); WBC, URINE TNTC /hpf (0-3)
== END ==
LOC: SKLAB2 11:56
PROVIDERS: ATTEND Nurse Practitioner Family
DX: N39.0 Urinary tract infection, site not specified (principal)

== ENCOUNTER → 2023-02-24 | Outpatient (REF) | payer MEDICARE ==
[2023-02-24 12:49] LABS: HEMATOCRIT 34.7 % (36.0-47.0); HEMOGLOBIN 11.4 g/dl (12.0-15.5); MEAN CORPUSCULAR HGB CONC 32.9 g/dl (32.0-36.5); MEAN CORPUSCULAR VOLUME 88.3 fl (80.0-96.0); PLATELET COUNT, AUTOMATED 282 10^3/uL (150-450); RED BLOOD COUNT 3.93 10^6/uL (4.00-5.40); WHITE BLOOD COUNT 19.1 10^3/uL (4.0-10.0)
[2023-02-24 14:12] LABS: ALBUMIN 3.1 G/DL (3.2-5.2); ALKALINE PHOSPHATASE 118 U/L (46-116); ALT/SGPT < 9 U/L (7.0-40); AST/SGOT < 8 U/L (<34); BILIRUBIN,TOTAL 0.2 MG/DL (0.3-1.2); BLOOD UREA NITROGEN 128 MG/DL (9-23); CALCIUM LEVEL 7.6 MG/DL (8.3-10.6); CARBON DIOXIDE LEVEL < 10.0 MMOL/L (20-31); CHLORIDE LEVEL 108 MMOL/L (98-107); CREATININE FOR GFR 6.01 MG/DL (0.55-1.30); GLOMERULAR FILTRATION RATE 7.1 (>32); GLUCOSE, FASTING 108 MG/DL (74-106); POTASSIUM SERUM 4.1 MMOL/L (3.5-5.1); SODIUM LEVEL 131 MMOL/L (136-145); TOTAL PROTEIN 5.7 G/DL (5.7-8.2)
== END ==
LOC: SKLAB2 11:35
PROVIDERS: ATTEND Internal Medicine
DX: R53.1 Weakness (principal)